=== PATIENT | female | born 1945 | race Caucasian/White ===

== ENCOUNTER 2020-12-06 21:46 | Inpatient (IN) | payer MEDICARE, OTHER ==
[~2020-12-06] VITALS: Ht 160 cm; Wt 61.2 kg
[2020-12-06 22:04] LABS: BASOPHILS # (AUTO) 0.1 10^3/uL (0.0-0.1); BASOPHILS % (AUTO) 1 % (0-10); EOSINOPHILS # (AUTO) 0.2 10^3/uL (0.0-0.3); EOSINOPHILS % (AUTO) 2 % (0-10); HEMATOCRIT 50 % (35-52); HEMOGLOBIN 16.6 g/dL (11.5-16.0); LYMPHOCYTES # (AUTO) 2.8 10^3/uL (1.0-4.0); LYMPHOCYTES % (AUTO) 22 % (12-44); MEAN CORPUSCULAR HEMOGLOBIN 31 pg (25-34); MEAN CORPUSCULAR HGB CONC 33 g/dL (32-36); MEAN CORPUSCULAR VOLUME 92 fL (80-99); MEAN PLATELET VOLUME 10.2 fL (9.0-12.2); MONOCYTES # (AUTO) 0.8 10^3/uL (0.0-1.0); MONOCYTES % (AUTO) 6 % (0-12); NEUTROPHILS # (AUTO) 8.8 10^3/uL (1.8-7.8); NEUTROPHILS % (AUTO) 69 % (42-75); PLATELET COUNT 316 10^3/uL (130-400); WHITE BLOOD COUNT 12.8 10^3/uL (4.3-11.0)
--- NOTE | 2020-12-06 22:07 | ED Chest Pain ---
General Stated Complaint: CP Source: patient, EMS Exam Limitations: no limitations History of Present Illness Date Seen by Provider: Dec 06, 2020 Time Seen by Provider: 21:46 Initial Comments Patient presents ER by private conveyance from home with chief complaint of abrupt onset shortness of air shortly before calling 911 followed by epigastric pain and burning sensation up through her left chest. She is not having any nausea but she has been having diarrhea a lot lately. No fevers or chills. She is had an occasional cough. She is not a smoker but does have hypertension hyperlipidemia and diabetes. She denies a previous history of coronary disease. She is known to Dr. Terry for primary care. 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 She is not on blood thinners she had a blood clot after delivery of her child many years ago. EMS gave her aspirin on route as well as nitroglycerin which improved her pain so nitroglycerin paste was placed. She was 88% on room air on arrival. She denies a history of respiratory disease or hypoxia at baseline requiring supplemental oxygen Allergies and Home Medications Allergies Coded Allergies: No Known Drug Allergies (Unverified , 12/06/20) Patient Home Medication List Home Medication List Reviewed: Yes Review of Systems Review of Systems Constitutional: No chills, No diaphoresis EENTM: No Blurred Vision, No Double Vision Respiratory: Cough, Shortness of Air; Denies SOA With Exertion Cardiovascular: Chest Pain; Denies Edema Gastrointestinal: Denies Constipated; Diarrhea; Denies Nausea Genitourinary: Denies Burning, Denies Discharge, Denies Drainage, Denies Frequency Musculoskeletal: No back pain, No joint pain All Other Systems Reviewed Negative Unless Noted: Yes Past Xysnrgf-Rzufpk-Jfgifx Hx Patient Social History Tobacco Use?: No Use of E-Cig and/or Vaping dev: No Substance use?: No Physical Exam Vital Signs Vital Signs - First Documented 12/06/20 12/06/20 21:47 21:50 Temp 36.2 Pulse 79 Resp 22 B/P (MAP) 180/120 (140) Pulse Ox 92 O2 Delivery Room Air O2 Flow Rate 4.00 Capillary Refill : Height, Weight, BMI Height: '" Weight: lbs. oz. kg; BMI Method: General Appearance: Moderate Distress HEENT: PERRL/EOMI, Pharynx Normal, Moist Mucous Membranes Neck: Full Range of Motion, Normal Inspection Respiratory: Accessory Muscle Use (Mild), Rales (Audible), Respiratory Distress (Moderate, 89% on 4 L by nasal cannula), Rhonci Cardiovascular: Regular Rate, Rhythm, Normal Peripheral Pulses Gastrointestinal: Normal Bowel Sounds, Non Tender, Soft Extremity: Normal Capillary Refill, Normal Inspection Neurologic/Psychiatric: Alert, Oriented x3 Skin: Normal Color, Warm/Dry Progress/Results/Core Measures Results/Orders Lab Results Laboratory Tests Test 12/06/20 21:50 12/06/20 21:59 12/06/20 22:50 Range/Units White Blood Count 12.8 H 4.3-11.0 10^3/uL Red Blood Count 5.41 H 3.80-5.11 10^6/uL Hemoglobin 16.6 H 11.5-16.0 g/dL Hematocrit 50 35-52 % Mean Corpuscular Volume 92 80-99 fL Mean Corpuscular Hemoglobin 31 25-34 pg Mean Corpuscular Hemoglobin Concent 33 32-36 g/dL Red Cell Distribution Width 13.5 10.0-14.5 % Platelet Count 316 130-400 10^3/uL Mean Platelet Volume 10.2 9.0-12.2 fL Immature Granulocyte % (Auto) 1 % Neutrophils (%) (Auto) 69 42-75 % Lymphocytes (%) (Auto) 22 12-44 % Monocytes (%) (Auto) 6 0-12 % Eosinophils (%) (Auto) 2 0-10 % Basophils (%) (Auto) 1 0-10 % Neutrophils # (Auto) 8.8 H 1.8-7.8 10^3/uL Lymphocytes # (Auto) 2.8 1.0-4.0 10^3/uL Monocytes # (Auto) 0.8 0.0-1.0 10^3/uL Eosinophils # (Auto) 0.2 0.0-0.3 10^3/uL Basophils # (Auto) 0.1 0.0-0.1 10^3/uL Immature Granulocyte # (Auto) 0.1 0.0-0.1 10^3/uL Prothrombin Time 13.2 12.2-14.7 SEC INR Comment 1.0 0.8-1.4 Activated Partial Thromboplast Time 25 24-35 SEC Sodium Level 139 135-145 MMOL/L Potassium Level 4.3 3.6-5.0 MMOL/L Chloride Level 104 98-107 MMOL/L Carbon Dioxide Level 19 L 21-32 MMOL/L Anion Gap 16 H 5-14 MMOL/L Blood Urea Nitrogen 15 7-18 MG/DL Creatinine 1.23 0.60-1.30 MG/DL Estimat Glomerular Filtration Rate 43 BUN/Creatinine Ratio 12 Glucose Level 285 H 70-105 MG/DL Calcium Level 9.4 8.5-10.1 MG/DL Corrected Calcium 9.3 8.5-10.1 MG/DL Magnesium Level 1.8 1.6-2.4 MG/DL Total Bilirubin 0.4 0.1-1.0 MG/DL Aspartate Amino Transf (AST/SGOT) 23 5-34 U/L Alanine Aminotransferase (ALT/SGPT) 13 0-55 U/L Alkaline Phosphatase 88 40-136 U/L Myoglobin 672.2 H 10.0-92.0 NG/ML Troponin I 0.212 H <0.028 NG/ML B-Type Natriuretic Peptide 927.9 H <100.0 PG/ML Total Protein 7.8 6.4-8.2 GM/DL Albumin 4.1 3.2-4.5 GM/DL Influenza Type A (RT-PCR) Not Detected Not Detecte Influenza Type B (RT-PCR) Not Detected Not Detecte SARS-CoV-2 RNA (RT-PCR) Not Detected Not Detecte Blood Gas Puncture Site R RAD Blood Gas Patient Temperature 36.2 Arterial Blood pH 7.32 *L 7.37-7.43 Arterial Blood Partial Pressure CO2 42 35-45 MMHG Arterial Blood Partial Pressure O2 95 H 79-93 MMHG Arterial Blood HCO3 22 L 23-27 MMOL/L Arterial Blood Total CO2 23.0 21.0-31.0 MMOL/L Arterial Blood Oxygen Saturation 97 94-100 % Arterial Blood Base Excess -3.6 L -2.5-2.5 MMOL/L Magdy Test YES-POS Blood Gas Ventilator Setting NO Blood Gas Inspired Oxygen BIPAP 35% My Orders Orders - EFREN HERRERA Cbc With Automated Diff (12/06/20 21:55) Magnesium (12/06/20 21:55) Chest 1 View, Ap/Pa Only (12/06/20 21:55) Ekg Tracing (12/06/20 21:55) Comprehensive Metabolic Panel (12/06/20 21:55) Myoglobin Serum (12/06/20 21:55) Protime With Inr (12/06/20 21:55) Partial Thromboplastin Time (12/06/20 21:55) O2 (12/06/20 21:55) Monitor-Rhythm Ecg Trace Only (12/06/20 21:55) Ed Iv/Invasive Line Start (12/06/20 21:55) BNP (12/06/20 21:55) Troponin I (12/06/20 21:55) Arterial Blood Gas (12/06/20 21:55) Bipap (Bilevel) Set Up (12/06/20 21:55) Covid 19 Inhouse Test (12/06/20 21:55) Influenza A And B By Pcr (12/06/20 21:55) Furosemide Injection (Lasix Injection) (12/06/20 23:15) Enoxaparin Injection (Lovenox Injection) (12/06/20 23:15) Vital Signs/I&O 12/06/20 12/06/20 21:47 21:50 Temp 36.2 Pulse 79 Resp 22 B/P (MAP) 180/120 (140) Pulse Ox 92 92 O2 Delivery Room Air Nasal Cannula O2 Flow Rate 4.00 Progress Progress Note : Time: 22:05 Progress Note BiPAP, ABG, oxygen mask 8 L brought her up to 94%. Continue the nitroglycerin as her blood pressure still 180/120. Suspect strongly she is having a coronary event. BNP labs and will reassess. COVID-19 swab. Initial ECG Impression Date: Dec 06, 2020 Initial ECG Impression Time: 21:55 Initial ECG Rate: 81 Initial ECG Rhythm: Normal Sinus Initial ECG Intervals: QT (476) Initial ECG Impression: Nonspecific Changes Initial ECG Comparisson: No Previous ECG Available Comment Left little branch block without clinically relevant ST changes. Sinus rhythm. Diagnostic Imaging Diagonstic Imaging: Xray Plain Films/CT/US/NM/MRI: chest Comments Pulmonary edema/congestion bilateral [facility] [place], [place] NAME: THALIA PITTMAN [facility] REC#: [id number] PT STATUS: ADM IN : 1945 PHYSICIAN: EFREN HERRERA MD ADMIT DATE: 12/06/20/ICU Signed Date of Exam:12/06/20 CHEST 1 VIEW, AP/PA ONLY EXAMINATION: Chest radiograph, portable AP view. DATE: 12/06/2020 10:48 PM INDICATION: 75-year-old female, chest pain, cough. Shortness of breath. COMPARISON: None. FINDINGS: Heart size and mediastinal contours are unremarkable. There is no identified pneumothorax. There is no large pleural effusion. There are bilateral interstitial and/or alveolar opacities. IMPRESSION: 1. Bilateral interstitial and/or alveolar opacities. Differential diagnostic considerations include multifocal pneumonia and atypical infectious etiologies, pulmonary edema, and pneumonitis. Dictated by: Dictated on workstation # [id number] Dict: 12/07/20 0519 Trans: 12/07/20 0656 [facility] [id number] Interpreted by: RADHA JAMES MD Electronically signed by: RADHA JAMES MD 12/07/20 0656 Reviewed: Reviewed by Me Departure Communication (Admissions) Time/Spoke to Admitting Phy: 00:10 Discussed the case with Dr. Cantu and she agrees to observe the patient with cardiac consultation Time/Spoke to Consulting Phy: 00:[address] Toney who agrees to consult on the case. Impression Primary Impression: Acute respiratory failure with hypoxia Additional Impressions: Acute coronary syndrome with high troponin Congestive heart failure Qualified Codes: I50.9 - Heart failure, unspecified Disposition: ADMITTED INPATIENT Condition: Stable Admissions Decision to Admit Reason: Admit from ER (General) Decision to Admit/Date: Dec 06, 2020 Time/Decision to Admit Time: 22:58 EFREN HERRERA Dec 06, 2020 22:07
[2020-12-06 22:15] LABS: ALBUMIN 4.1 GM/DL (3.2-4.5)
[2020-12-06 22:16] LABS: POTASSIUM 4.3 MMOL/L (3.6-5.0)
[2020-12-06 22:17] LABS: CALCIUM 9.4 MG/DL (8.5-10.1)
[2020-12-06 22:18] LABS: PROTHROMBIN TIME PATIENT 13.2 SEC (12.2-14.7); TOTAL PROTEIN 7.8 GM/DL (6.4-8.2)
[2020-12-06 22:20] LABS: BILIRUBIN,TOTAL 0.4 MG/DL (0.1-1.0)
[2020-12-06 22:22] LABS: CREATININE SERUM 1.23 MG/DL (0.60-1.30)
[2020-12-06 22:24] LABS: MAGNESIUM 1.8 MG/DL (1.6-2.4)
[2020-12-06 23:02] LABS: ABG BASE EXCESS -3.6 MMOL/L (-2.5-2.5); ABG OXYGEN SATURATION 97 % (94-100); ABG PCO2 42 MMHG (35-45); ABG PO2 95 MMHG (79-93)
[2020-12-06 23:03] LABS: ABG PH 7.32 (7.37-7.43)
[2020-12-06 23:04] LABS: ALLENS TEST YES-POS; INSPIRED O2 BIPAP 35%; PATIENT TEMP 36.2; VENTILATOR NO
[2020-12-06] MEDS ORDERED: ENOXAPARIN 60 MG/0.6 ML (LOVENOX) SYR SC ONE (23:15)
[2020-12-06] MEDS ORDERED: FUROSEMIDE 40 MG/4 ML INJ (LASIX) IVP ONE (23:15)
[2020-12-07 00:05] LABS: BILIRUBIN,URINE NEGATIVE (NEGATIVE); CLARITY,URINE CLEAR; COLOR,URINE YELLOW; GLUCOSE, URINE (UA) NEGATIVE (NEGATIVE); KETONES,URINE NEGATIVE (NEGATIVE); LEUKOCYTE ESTERASE ,URINE TRACE (NEGATIVE); NITRITE,URINE NEGATIVE (NEGATIVE); PH,URINE 5.5 (5-9); PROTEIN,URINE 2+ (NEGATIVE)
[2020-12-07 00:20] LABS: RBC,URINE 0-2 /HPF
[2020-12-07 00:21] LABS: BACTERIA,URINE MODERATE /HPF
[2020-12-07 00:22] LABS: RENAL EPITHELIAL CELLS,URINE 0-2 /HPF
[2020-12-07 00:56] VITALS: BP 180/120
[2020-12-07] MEDS ORDERED: morphine INJ 4 MG/ML 1 ML (VIAL/SYRINGE) IV PRN (01:00)
[2020-12-07] MEDS ORDERED: ACETAMINOPHEN 325 MG TABLET PO PRN (01:00)
[2020-12-07] MEDS ORDERED: NITROGLYCERIN 0.4 MG SL TABS BTL 25'S SL PRN (01:00)
[2020-12-07] MEDS ORDERED: ONDANSETRON 4 MG/2 ML (SDV) Z0FRAN IVP PRN (01:00)
[2020-12-07] MEDS ORDERED: NITROGLYCERIN 2% OINT 1 GM UNIT DOSE PACKET TOP PRN (01:00)
--- NOTE | 2020-12-07 01:07 | Tele-ICU Consult ---
History of Present Illness History of Present Illness Date Seen by Provider: Dec 07, 2020 Time Seen by Provider: 00:50 Date of Admission Reason for Visit: Acute respiratory distress, epigastric pain History of Present Illness This is a 75 yo F with PMH HTN, DM, remote blood clot after child who presents with sudden onset epigastric pain and dyspnea. Now relieved with ASA, nitro paste. No fever. Some nausea, hx diarrhea. No hemoptysis or hematemesis. Allergies and Home Medications Allergies Coded Allergies: No Known Drug Allergies (Unverified , 12/06/20) Past Medical/Social/Family Hx Patient Social History Tobacco Use?: No Use of E-Cig and/or Vaping dev: No Substance use?: No Alcohol Use?: No Pt stated abuse/neglect: No Current Status Primary Language: Israeli Past Medical History HTN DM Hyperlipidemia Remote blood clot Review of Systems Constitutional: see HPI, diaphoresis Respiratory: dyspnea on exertion, short of breath Gastrointestinal: loss of appetite, vomiting Sepsis Event Evaluation Sepsis Stage: Ruled Out Height, Weight, BMI Height: '" Weight: lbs. oz. kg; BMI Method: Exam Exam Patient acknowledged, consented, and participated in this virtual visit which was conducted using real time audio/video Vital Signs Date Time Temp Pulse Resp B/P (MAP) Pulse Ox O2 Delivery O2 Flow Rate FiO2 12/07/20 00:42 76 12/07/20 00:41 79 29 97 35.00 12/06/20 23:15 65 25 98 35.00 12/06/20 21:50 92 Nasal Cannula 4.00 12/06/20 21:47 36.2 79 22 180/120 (140) 92 Room Air Height & Weight Height: '" Weight: lbs. oz. kg; BMI Method: General Appearance: No Apparent Distress HEENT: PERRL/EOMI Neck: Other (No stridor) Respiratory: Rales Cardiovascular: Regular Rate, Rhythm, Normal Peripheral Pulses Capillary Refill: Less Than 3 Seconds Extremity: Normal Capillary Refill, Normal Inspection Neurologic/Psychiatric: Alert, Oriented x3 Skin: Normal Color, Warm/Dry Results Lab Laboratory Tests 12/06/20 21:50 Assessment/Plan Assessment/Plan NSTEMI on lovenox, cardiology consulted. Supplemental O2, nitroglcerin, ASA Acute pulmonary edema. NIV, lasix. COVID, flu negative. Doubt pneumonia Dyspnea Epigastric pain, nausea. Antiemetics, Add PPI Cardiology consulted per Dr. Cantu, keep NPO, follow-up recommendations Critical Care: Critically Ill Patient Time spent with patient (mins): 25 Diagnosis/Problems Problems/Diagonsis (1) NSTEMI (non-ST elevated myocardial infarction) (2) Acute respiratory failure with hypoxia ALLEY JOHNS MD Dec 07, 2020 01:07
[2020-12-07] MEDS ORDERED: RT-ALBUTEROL SULF 2.5 MG/3 ML PRE-MIX VIAL INH PRN (01:15)
[2020-12-07] MEDS ORDERED: RT-ALBUTEROL INHALER HFA (VENTOLIN HFA) 18 GM IH PRN (03:00)
[2020-12-07 03:29] LABS: BASOPHILS % (AUTO) 0 % (0-10); EOSINOPHILS % (AUTO) 0 % (0-10); HEMATOCRIT 47 % (35-52); HEMOGLOBIN 15.7 g/dL (11.5-16.0); LYMPHOCYTES # (AUTO) 1.6 10^3/uL (1.0-4.0); LYMPHOCYTES % (AUTO) 14 % (12-44); MEAN CORPUSCULAR HEMOGLOBIN 30 pg (25-34); MEAN CORPUSCULAR HGB CONC 33 g/dL (32-36); MEAN CORPUSCULAR VOLUME 91 fL (80-99); MEAN PLATELET VOLUME 10.2 fL (9.0-12.2); MONOCYTES # (AUTO) 0.7 10^3/uL (0.0-1.0); MONOCYTES % (AUTO) 6 % (0-12); NEUTROPHILS # (AUTO) 8.6 10^3/uL (1.8-7.8); NEUTROPHILS % (AUTO) 79 % (42-75); PLATELET COUNT 276 10^3/uL (130-400); WHITE BLOOD COUNT 10.9 10^3/uL (4.3-11.0)
[2020-12-07 03:42] LABS: POTASSIUM 4.4 MMOL/L (3.6-5.0)
[2020-12-07 03:43] LABS: CALCIUM 9.5 MG/DL (8.5-10.1)
[2020-12-07 03:48] LABS: CREATININE SERUM 0.96 MG/DL (0.60-1.30); PHOSPHORUS 3.8 MG/DL (2.3-4.7)
[2020-12-07 03:51] LABS: MAGNESIUM 1.9 MG/DL (1.6-2.4)
[2020-12-07] MEDS: PANTOPRAZOLE 40 MG (PROTONIX) VIAL IV SCH ×2 (05:11→08:30)
[2020-12-07] MEDS: inSUlin ASPART (NovoLOG) 1 UNIT/0.01 ML (CHARGE PER UNIT) SC SCH ×2 (05:55→12:19)
--- NOTE | 2020-12-07 06:34 | Diagnostic Imaging Report ---
EXAMINATION: Chest radiograph, portable AP view. DATE: 12/06/2020 10:48 PM INDICATION: 75-year-old female, chest pain, cough. Shortness of breath. COMPARISON: None. FINDINGS: Heart size and mediastinal contours are unremarkable. There is no identified pneumothorax. There is no large pleural effusion. There are bilateral interstitial and/or alveolar opacities. IMPRESSION: 1. Bilateral interstitial and/or alveolar opacities. Differential diagnostic considerations include multifocal pneumonia and atypical infectious etiologies, pulmonary edema, and pneumonitis. Dictated by: Dictated on workstation # [id number]
[2020-12-07] MEDS ORDERED: FUROSEMIDE 40 MG/4 ML INJ (LASIX) IVP SCH (07:00)
[2020-12-07] MEDS ORDERED: RT-ALBUTEROL INHALER HFA (VENTOLIN HFA) 18 GM IH SCH (08:00)
[2020-12-07] MEDS ORDERED: RT-ALBUTEROL SULF 2.5 MG/3 ML PRE-MIX VIAL INH SCH (08:00)
--- NOTE | 2020-12-07 08:39 | History & Physical-Hospitalist ---
History of Present Illness HPI/Chief Complaint Pt is a 75yoCF with a PMH of HTN and NIDDMII who presented to the ER due to SOB and chest pain. She states that she was not doing much yesterday evening when it started around 630pm. It was rather acute in onset. She had SOB, nausea, diaphoresis, and chest pain. She has had similar episodes in the past but attributed them to old age and didn't think much of it as it resolved on it's own. She now states she feels fine and is actually asking to go home. I discussed with her that her troponin increased to 42 and she needs evaluation of her heart prior to discharge to which she is agreeable. Source: patient Date Seen 12/07/20 Time Seen by a Provider: 08:32 Attending Physician Roddy Cantu MD PCP No,Local Physician Referring Physician Date of Admission Dec 06, 2020 at 23:10 Home Medications & Allergies Home Medications Reviewed patient Home Medication Reconciliation performed by pharmacy medication reconciliations settlement technician and/or nursing. Patients Allergies have been reviewed. Allergies Allergies Coded Allergies No Known Drug Allergies (Unverified12/06/20) Past Riwnchq-Wwcywv-Expwyq Hx Patient Social History Marrital Status: Tobacco Use?: No Smoking Status: Never a Smoker Use of E-Cig and/or Vaping dev: No Substance use?: No Alcohol Use?: No Pt feels they are or have been: No Immunizations Up To Date First/Initial COVID19 Vaccinat: Not yet, intends to on Current Status Primary Language: Senegalese Past Medical History Hypertension Diabetes, Non-Insulin dep HTN DM Hyperlipidemia Remote blood clot Review of Systems Constitutional: No chills; diaphoresis; No fever EENTM: no symptoms reported Respiratory: dyspnea on exertion, short of breath Cardiovascular: chest pain; No edema, No Hx of Intervention, No syncope Gastrointestinal: No abdominal pain, No constipation, No diarrhea; nausea; No vomiting Genitourinary: no symptoms reported Musculoskeletal: no symptoms reported Skin: no symptoms reported Psychiatric/Neurological: No Symptoms Reported Physical Exam Physical Exam Vital Signs Vital Signs - First Documented 12/06/20 12/06/20 12/07/20 21:47 21:50 00:56 Temp 36.2 Pulse 79 Resp 22 B/P (MAP) 180/120 (140) Pulse Ox 92 O2 Delivery Room Air O2 Flow Rate 4.00 FiO2 36 Capillary Refill : Less Than 3 Seconds Height, Weight, BMI Height: '" Weight: lbs. oz. kg; BMI Method: General Appearance: No Apparent Distress, WD/WN HEENT: PERRL/EOMI, Moist Mucous Membranes; No Scleral Icterus (L), No Scleral Icterus (R) Neck: Normal Inspection, Supple Respiratory: Lungs Clear, No Accessory Muscle Use, No Respiratory Distress (on 2lpm satting high 90s) Cardiovascular: Regular Rate, Rhythm, No JVD, No Murmur Gastrointestinal: Normal Bowel Sounds, Non Tender, Soft Extremity: Normal Capillary Refill, No Calf Tenderness, No Pedal Edema Neurologic/Psychiatric: Alert, Oriented x3, Normal Mood/Affect; No Aphasia, No Facial Droop Results Results/Procedures Labs Laboratory Tests 12/06/20 21:50 12/07/20 03:18 Patient resulted labs reviewed. Imaging: Reviewed Imaging Report Imaging [facility] [place], [place] NAME: THALIA PITTMAN [facility] REC#: [id number] PT STATUS: ADM IN : 1945 PHYSICIAN: EFREN HERRERA MD ADMIT DATE: 12/06/20/ICU Signed Date of Exam:12/06/20 CHEST 1 VIEW, AP/PA ONLY EXAMINATION: Chest radiograph, portable AP view. DATE: 12/06/2020 10:48 PM INDICATION: 75-year-old female, chest pain, cough. Shortness of breath. COMPARISON: None. FINDINGS: Heart size and mediastinal contours are unremarkable. There is no identified pneumothorax. There is no large pleural effusion. There are bilateral interstitial and/or alveolar opacities. IMPRESSION: 1. Bilateral interstitial and/or alveolar opacities. Differential diagnostic considerations include multifocal pneumonia and atypical infectious etiologies, pulmonary edema, and pneumonitis. Dictated by: Dictated on workstation # [id number] Dict: 12/07/20 0519 Trans: 12/07/20 0656 [facility] [id number] Interpreted by: RADHA JAMES MD Electronically signed by: RADHA JAMES MD 12/07/20 0656 Assessment/Plan Admission Diagnosis NSTEMI Admission Status: Inpatient Order (span 2 midnights) Reason for Inpatient Admission: see below Assessment and Plan NSTEMI Acute hypoxic respiratory failure Required BiPAP overnight, now off Troponin from 0.2 to 42 this morning Discussed with Dr Toney, cardiology, who will see and plans to cath this morning Continue aspirin and Lovenox Nitro prn chest pain Monitor on telemetry Echo HTN BP well controlled, trend HLD Will need statin, start when able to take PO NIDDMII Hold Janumet for contrast with cath DV ppx: Lovenox already for NSTEMI Diagnosis/Problems Diagnosis/Problems (1) Essential (primary) hypertension (2) HLD (hyperlipidemia) (3) Non-insulin dependent type 2 diabetes mellitus (4) Acute respiratory failure with hypoxia (5) Acute coronary syndrome with high troponin Status: Acute (6) NSTEMI (non-ST elevated myocardial infarction) RODDY CANTU MD Dec 07, 2020 08:39
[2020-12-07] MEDS ORDERED: NS IV 1000 ML 1,000 ML IV SCH ×2 (08:45→11:45)
[2020-12-07] MEDS ORDERED: KCL 20 MEQ TAB (K-DUR) PO SCH (09:00)
[2020-12-07] MEDS ORDERED: ASPIRIN E.C. 81 MG (ECOTRIN) TAB PO SCH (09:00)
--- NOTE | 2020-12-07 09:27 | Tele-ICU Progress Note ---
Progress Note video rounds completed 75 y/o female admitted with atypical CP Troponin thuis am has risen to 42 Patient has NSTEMI and plan is to go to cardiac cath lab technologist for PCI PE: sitting up in bed comfortably talking on phone Pulse 61 ST depression noted BP: 151/88 O2 sat 97% PLAN: cardiac cath lab technologist today Focused Exam Height, Weight, BMI Height: '" Weight: lbs. oz. kg; BMI Method: BENITO MOTA MD Dec 07, 2020 09:27
[2020-12-07] MEDS ORDERED: fentaNYL INJ 100 MCG/2 ML AMP ONE (10:12)
[2020-12-07] MEDS ORDERED: LIDOCAINE 1% INJ 20 ML 20 ML VIAL ONE (10:13)
[2020-12-07] MEDS ORDERED: MIDAZOLAM 5 MG/5 ML (VERSED) VIAL ONE (10:13)
[2020-12-07] MEDS ORDERED: HEParin (CATH LAB) 2,000 ML IV ONE (10:13)
[2020-12-07] MEDS ORDERED: NS IV 1000 ML 1,000 ML ONE (10:13)
--- NOTE | 2020-12-07 10:26 | Consultation-Cardiology ---
HPI-Cardiology Cardiology Consultation Date of Consultation 12/07/20 Date of Admission Time Seen by Provider: 08:32 Indication: Acute myocardial infarction HPI 75-year-old lady with history of hypertension, hyperlipidemia and diabetes mellitus, have sudden onset of shortness of breath and chest discomfort, came into the emergency room. Reported the symptoms improved after sublingual nitroglycerin, currently feeling well. No chest pain at this point, had left bundle branch block and elevated troponin. Had multiple risk factors, reported having cardiac catheterization about 20 years ago without any obstructive disease Home Medications & Allergies Allergies: Coded Allergies: No Known Drug Allergies (Unverified , 12/06/20) Home Medication List Reviewed: Yes TPC-Novxnz-Zbguhx Hx Patient Social History Marital Status: Smoking Status: Never a Smoker Alcohol Use?: No Past Medical History Discussed below Family Medical History Family Medical Hx Mother had history of heart disease Review of Systems-General Review of Systems Constitutional: No chills; diaphoresis; No fever EENTM: no symptoms reported Respiratory: see HPI; No cough; dyspnea on exertion; No hemoptysis, No orthopnea, No phlegm; short of breath; No stridor, No wheezing, No other Cardiovascular: No no symptoms reported; see HPI, chest pain; No edema, No Hx of Intervention, No palpitations, No syncope, No vascular heart diseas, No other Gastrointestinal: see HPI; No abdominal pain, No constipation, No diarrhea; nausea; No vomiting Genitourinary: no symptoms reported, see HPI Musculoskeletal: no symptoms reported, see HPI Skin: no symptoms reported, see HPI Psychiatric/Neurological: No Symptoms Reported, See HPI All Other Systems Reviewed Negative Unless Noted: Yes Reviewed Test Results Reviewed Test Results Lab Laboratory Tests Test 12/06/20 21:50 12/06/20 21:59 12/06/20 22:50 12/06/20 23:49 Range/Units White Blood Count 12.8 H 4.3-11.0 10^3/uL Red Blood Count 5.41 H 3.80-5.11 10^6/uL Hemoglobin 16.6 H 11.5-16.0 g/dL Hematocrit 50 35-52 % Mean Corpuscular Volume 92 80-99 fL Mean Corpuscular Hemoglobin 31 25-34 pg Mean Corpuscular Hemoglobin Concent 33 32-36 g/dL Red Cell Distribution Width 13.5 10.0-14.5 % Platelet Count 316 130-400 10^3/uL Mean Platelet Volume 10.2 9.0-12.2 fL Immature Granulocyte % (Auto) 1 % Neutrophils (%) (Auto) 69 42-75 % Lymphocytes (%) (Auto) 22 12-44 % Monocytes (%) (Auto) 6 0-12 % Eosinophils (%) (Auto) 2 0-10 % Basophils (%) (Auto) 1 0-10 % Neutrophils # (Auto) 8.8 H 1.8-7.8 10^3/uL Lymphocytes # (Auto) 2.8 1.0-4.0 10^3/uL Monocytes # (Auto) 0.8 0.0-1.0 10^3/uL Eosinophils # (Auto) 0.2 0.0-0.3 10^3/uL Basophils # (Auto) 0.1 0.0-0.1 10^3/uL Immature Granulocyte # (Auto) 0.1 0.0-0.1 10^3/uL Prothrombin Time 13.2 12.2-14.7 SEC INR Comment 1.0 0.8-1.4 Activated Partial Thromboplast Time 25 24-35 SEC Sodium Level 139 135-145 MMOL/L Potassium Level 4.3 3.6-5.0 MMOL/L Chloride Level 104 98-107 MMOL/L Carbon Dioxide Level 19 L 21-32 MMOL/L Anion Gap 16 H 5-14 MMOL/L Blood Urea Nitrogen 15 7-18 MG/DL Creatinine 1.23 0.60-1.30 MG/DL Estimat Glomerular Filtration Rate 43 BUN/Creatinine Ratio 12 Glucose Level 285 H 70-105 MG/DL Calcium Level 9.4 8.5-10.1 MG/DL Corrected Calcium 9.3 8.5-10.1 MG/DL Magnesium Level 1.8 1.6-2.4 MG/DL Total Bilirubin 0.4 0.1-1.0 MG/DL Aspartate Amino Transf (AST/SGOT) 23 5-34 U/L Alanine Aminotransferase (ALT/SGPT) 13 0-55 U/L Alkaline Phosphatase 88 40-136 U/L Myoglobin 672.2 H 10.0-92.0 NG/ML Troponin I 0.212 H <0.028 NG/ML B-Type Natriuretic Peptide 927.9 H <100.0 PG/ML Total Protein 7.8 6.4-8.2 GM/DL Albumin 4.1 3.2-4.5 GM/DL Influenza Type A (RT-PCR) Not Detected Not Detecte Influenza Type B (RT-PCR) Not Detected Not Detecte SARS-CoV-2 RNA (RT-PCR) Not Detected Not Detecte Blood Gas Puncture Site R RAD Blood Gas Patient Temperature 36.2 Arterial Blood pH 7.32 *L 7.37-7.43 Arterial Blood Partial Pressure CO2 42 35-45 MMHG Arterial Blood Partial Pressure O2 95 H 79-93 MMHG Arterial Blood HCO3 22 L 23-27 MMOL/L Arterial Blood Total CO2 23.0 21.0-31.0 MMOL/L Arterial Blood Oxygen Saturation 97 94-100 % Arterial Blood Base Excess -3.6 L -2.5-2.5 MMOL/L Magdy Test YES-POS Blood Gas Ventilator Setting NO Blood Gas Inspired Oxygen BIPAP 35% Urine Color YELLOW Urine Clarity CLEAR Urine pH 5.5 5-9 Urine Specific [place] >=1.030 1.016-1.022 Urine Protein 2+ H NEGATIVE Urine Glucose (UA) NEGATIVE NEGATIVE Urine Ketones NEGATIVE NEGATIVE Urine Nitrite NEGATIVE NEGATIVE Urine Bilirubin NEGATIVE NEGATIVE Urine Urobilinogen 0.2 < = 1.0 MG/DL Urine Leukocyte Esterase TRACE H NEGATIVE Urine RBC (Auto) TRACE-I NEGATIVE Urine RBC 0-2 /HPF Urine WBC 10-25 H /HPF Urine Squamous Epithelial Cells 2-5 /HPF Urine Renal Epithelial Cells 0-2 /HPF Urine Crystals NONE /LPF Urine Bacteria MODERATE H /HPF Urine Casts PRESENT /LPF Urine Hyaline Casts 5-10 H /LPF Urine Granular Casts 2-5 H /LPF Urine Mucus NEGATIVE /LPF Urine Culture Indicated YES Test 12/07/20 03:18 12/07/20 10:00 Range/Units White Blood Count 10.9 4.3-11.0 10^3/uL Red Blood Count 5.19 H 3.80-5.11 10^6/uL Hemoglobin 15.7 11.5-16.0 g/dL Hematocrit 47 35-52 % Mean Corpuscular Volume 91 80-99 fL Mean Corpuscular Hemoglobin 30 25-34 pg Mean Corpuscular Hemoglobin Concent 33 32-36 g/dL Red Cell Distribution Width 13.4 10.0-14.5 % Platelet Count 276 130-400 10^3/uL Mean Platelet Volume 10.2 9.0-12.2 fL Immature Granulocyte % (Auto) 0 % Neutrophils (%) (Auto) 79 H 42-75 % Lymphocytes (%) (Auto) 14 12-44 % Monocytes (%) (Auto) 6 0-12 % Eosinophils (%) (Auto) 0 0-10 % Basophils (%) (Auto) 0 0-10 % Neutrophils # (Auto) 8.6 H 1.8-7.8 10^3/uL Lymphocytes # (Auto) 1.6 1.0-4.0 10^3/uL Monocytes # (Auto) 0.7 0.0-1.0 10^3/uL Eosinophils # (Auto) 0.0 0.0-0.3 10^3/uL Basophils # (Auto) 0.0 0.0-0.1 10^3/uL Immature Granulocyte # (Auto) 0.0 0.0-0.1 10^3/uL Sodium Level 140 135-145 MMOL/L Potassium Level 4.4 3.6-5.0 MMOL/L Chloride Level 107 98-107 MMOL/L Carbon Dioxide Level 19 L 21-32 MMOL/L Anion Gap 14 5-14 MMOL/L Blood Urea Nitrogen 17 7-18 MG/DL Creatinine 0.96 0.60-1.30 MG/DL Estimat Glomerular Filtration Rate 57 BUN/Creatinine Ratio 18 Glucose Level 162 H 70-105 MG/DL Calcium Level 9.5 8.5-10.1 MG/DL Phosphorus Level 3.8 2.3-4.7 MG/DL Magnesium Level 1.9 1.6-2.4 MG/DL Troponin I 42.090 *H <0.028 NG/ML Triglycerides Level 320 H <150 MG/DL Cholesterol Level 239 H < 200 MG/DL LDL Cholesterol Direct 169 H 1-129 MG/DL VLDL Cholesterol 64 H 5-40 MG/DL HDL Cholesterol 40 40-60 MG/DL Physical Exam Physical Exam Vital Signs Vital Signs - First Documented 12/06/20 12/06/20 12/07/20 21:47 21:50 00:56 Temp 36.2 Pulse 79 Resp 22 B/P (MAP) 180/120 (140) Pulse Ox 92 O2 Delivery Room Air O2 Flow Rate 4.00 FiO2 36 Capillary Refill : Less Than 3 Seconds Height, Weight, BMI Height: '" Weight: lbs. oz. kg; BMI Method: General Appearance: No Apparent Distress, WD/WN Eyes: Bilateral Eye Normal Inspection, Bilateral Eye PERRL, Bilateral Eye EOMI HEENT: PERRL/EOMI, Moist Mucous Membranes; No Scleral Icterus (L), No Scleral Icterus (R) Neck: Normal Inspection, Supple Respiratory: Lungs Clear, No Accessory Muscle Use, No Respiratory Distress (on 2lpm satting high 90s) Cardiovascular: Regular Rate, Rhythm, No JVD, No Murmur Gastrointestinal: Normal Bowel Sounds, Non Tender, Soft Back: Normal Inspection, No CVA Tenderness, No Vertebral Tenderness Extremity: Normal Capillary Refill, No Calf Tenderness, No Pedal Edema Neurologic/Psychiatric: Alert, Oriented x3, Normal Mood/Affect; No Aphasia, No Facial Droop Skin: Normal Color, Warm/Dry Lymphatic: No Adenopathy A/P-Cardiology Admission Diagnosis Acute myocardial infarction Coronary artery disease Hypertension Hyperlipidemia Assessment/Plan Acute myocardial infarction, left bundle branch block on EKG with elevated troponin, no active chest pain at this point. I am planning to proceed with cardiac catheterization possible PTCA. Hypertension, restart blood pressure medication monitor blood pressure Hyperlipidemia, starting Lipitor Diabetes mellitus, managed by primary care physician Family history of atherosclerosis BROOKS RUST MD Dec 07, 2020 10:26
--- NOTE | 2020-12-07 10:26 | Conscious Sedation/ASA ---
Conscious Sedation Pre-Proced Time 10:26 ASA Score 3 For ASA 3 and 4: Consider anesthesia and medical clearance. Also, for patients with a history of failed moderate sedation consider anesthesia. Airway Lungs Heart ASA score ASA 1: a normal healthy patient ASA 2: a patient with a mild systemic disease (mid diabetes, controlled hypertension, obesity x ASA 3: a patient with a severe systemic disease that limits activity (angina, COPD, prior Myocardial infarction) ASA 4: a patient with an incapacitating disease that is a constant threat to life (CHF, renal failure) ASA 5: a moribund patient not expected to survive 24 hrs. (ruptured aneurysm) ASA 6: a declared brain- patient whose organs are being harvested. For emergent operations, add the letter E after the classification Mallampati Classification Grade 3 Sedation Plan Analgesia, Amnesia, Plan communicated to team members, Discussed options with patient/fam, Discussed risks with patient/fam The patient is an appropriate candidate to undergo the planned procedure, sedation, and anesthesia. The patient immediately re-assessed prior to indication. BROOKS RUST MD Dec 07, 2020 10:26
[2020-12-07] MEDS ORDERED: ENOXAPARIN 60 MG/0.6 ML (LOVENOX) SYR SC SCH (11:00)
[2020-12-07] MEDS ORDERED: HEParin (CATH LAB) 1,000 ML IV ONE ×2 (11:06→11:44)
[2020-12-07] MEDS ORDERED: HEParin 1000 UNIT/ML (10ML VIAL) FOR BOLUS ONE (11:33)
[2020-12-07] MEDS ORDERED: HEParin DRIP 25000 UNIT/500ML 500 ML IV ONE (11:33)
--- NOTE | 2020-12-07 11:38 | Cardiac Cath Report ---
Cardiac Cath Report Physician (s)/Branding Machine Tender (s) Physician BROOKS RUST MD Pre-Procedure Diagnosis Pre-Procedure Diagnosis: Acute myocardial infarction Post-Procedure Note Procedure Start Date: Dec 07, 2020 Name of Procedure: Left heart catheterization Left ventriculogram Aortic arch angiogram Intra-aortic balloon pump insertion Findings/Procedure Note PROCEDURE NOTE: 75-year-old lady with history of hypertension, hyperlipidemia, diabetes mellitus, admitted with acute myocardial infarction, no further episodes of chest pain were reported, had elevation in troponin and left bundle branch block, brought for cardiac catheterization possible PTCA. After explaining the procedure to the patient, all pros and cons were explained, all questions were answered. The patient signed the consent and then she was placed on the cardiac catheterization laboratory. Groin was prepped SL fashion local anesthesia was used. Sheath placed in the right femoral artery. Zachary right and left catheter were used to access the coronary system. Pigtail was used to access the left ventricular cavity. Left ventriculogram was done Aortic arch angiogram was done Intra-aortic balloon pump placement. 6 Mongolian sheath was exchanged over a long wire then intra-aortic balloon pump was placed under fluoroscopy, good positioning, initiated with good augmentation. Sheath was sutured in place FINDINGS: Hemodynamics LV 96/16, end-diastolic pressure of 16 Aorta 92/50 mean of 71 ANATOMY: Left Main is free of obstructive disease Left Anterior Descending has severe ostial stenosis, moderate disease distally Left Circumflex has severe proximal stenosis with ulcerated plaque and some haziness, moderate disease distally Right Coronary Artery is totally occluded, getting collaterals from the left system LV Gram evaluation showed dilated left ventricle with diffuse hypokinesia, ejection fraction 30% Aorta evaluation showed normal aortic arch, no dissection or aneurysm, normal origin of the brachiocephalic artery, left subclavian artery and left carotid arteries Fluoroscopy for intra-aortic balloon pump placement showed good positioning with normal inflation CONCLUSION: 1. Severe multivessel coronary artery disease involving ostial LAD, ulcerated plaque with haziness in the proximal/ostial circumflex artery and occluded right coronary artery with collaterals from the left 2. Dilated left ventricle with severe diffuse left ventricular hypokinesia, ejection fraction 30% 3. Normal aortic arch and great vessels of the neck 4. Normal positioning of intra-aortic balloon pump DISCUSSION AND RECOMMENDATION: Arrangement for transfer for evaluation for CABG was made. Hospital course Patient was monitored overnight, on my evaluation I decided to proceed with cardiac catheterization which carried out showing multivessel disease, patient was hypotensive. I proceeded with intra-aortic balloon pump placement and made arrangement to transfer to . Awaiting acceptance from . Final diagnoses Acute myocardial infarction Coronary artery disease Congestive heart failure, acute left ventricular systolic dysfunction, ischemic cardiomyopathy Cardiogenic shock Anesthesia Type: Conscious Sedation Estimated blood loss (mL): 25 ml Contrast Amount: 63 mkl Total Radiation Dose: 318 mGy Post-Procedure Diagnosis Post-operative diagnosis: Acute myocardial infarction Coronary artery disease Congestive heart failure, acute left ventricular systolic dysfunction, ischemic cardiomyopathy Cardiogenic shock BROOKS RUST MD Dec 07, 2020 11:38
[2020-12-07] MEDS ORDERED: HEParin DRIP 25000 UNIT/500ML 500 ML IV SCH (11:45)
[2020-12-07] MEDS ORDERED: PATIENT MAY USE OWN MEDS, ALL PO SCH (11:45)
[2020-12-07] MEDS ORDERED: HEParin 1000 UNIT/ML (10ML VIAL) FOR BOLUS IV SCH (11:45)
[2020-12-07] MEDS ORDERED: MIDAZOLAM 2 MG/2 ML (VERSED) VIAL ONE (12:13)
[2020-12-07] MEDS ORDERED: MIDAZOLAM 2 MG/2 ML (VERSED) VIAL IVP ONE (12:15)
[2020-12-07 13:55] VITALS: BP 144/82
== END 2020-12-07 13:55 | disposition short-term general hospital (02) | DRG 270 ==
LOC: ER 21:49 → ICU 23:10
PROVIDERS: ADMIT Family Medicine; ATTEND Family Medicine
PROC: 4A023N7 Measurement of Cardiac Sampling and Pressure, Left Heart, Percutaneous Approach (ICD-10-PCS; principal; 2020-12-06)
PROC: 5A02210 Assistance with Cardiac Output using Balloon Pump, Continuous (ICD-10-PCS; 2020-12-06)
PROC: B2111ZZ Fluoroscopy of Multiple Coronary Arteries using Low Osmolar Contrast (ICD-10-PCS; 2020-12-06)
PROC: B2151ZZ Fluoroscopy of Left Heart using Low Osmolar Contrast (ICD-10-PCS; 2020-12-06)
PROC: B3101ZZ Fluoroscopy of Thoracic Aorta using Low Osmolar Contrast (ICD-10-PCS; 2020-12-06)
PROC: 5A09357 Assistance with Respiratory Ventilation, Less than 24 Consecutive Hours, Continuous Positive Airway Pressure (ICD-10-PCS; 2020-12-06)
DX: I21.4 Non-ST elevation (NSTEMI) myocardial infarction (principal); J96.01 Acute respiratory failure with hypoxia; I50.21 Acute systolic (congestive) heart failure; R57.0 Cardiogenic shock; I24.9 Acute ischemic heart disease, unspecified; Z20.822 Contact with and (suspected) exposure to COVID-19; I11.0 Hypertensive heart disease with heart failure; E78.5 Hyperlipidemia, unspecified; R10.13 Epigastric pain; R11.0 Nausea; I25.10 Atherosclerotic heart disease of native coronary artery without angina pectoris; I25.5 Ischemic cardiomyopathy; E11.9 Type 2 diabetes mellitus without complications; I44.7 Left bundle-branch block, unspecified; Z82.49 Family history of ischemic heart disease and other diseases of the circulatory system
CPT/HCPCS: 33967; 36221; 36415; 51702; 71045; 80048; 80053; 80061; 81000; 82805; 83735; 83874; 83880; 84100; 84484; 85025; 85610; 85730; 87088; 87636; 93005; 93041; 93458; 94640; 94660

== ENCOUNTER 2020-12-25 09:09 | Inpatient (IN) | payer MEDICARE, OTHER ==
[~2020-12-25] VITALS: Ht 157.5 cm; Wt 57.6 kg
[2020-12-25] MEDS ORDERED: SPIR25TA PO (10:22)
[2020-12-25] MEDS ORDERED: LOSA25TA41 PO (10:22)
[2020-12-25] MEDS ORDERED: VIT1CAPS44 PO (10:22)
[2020-12-25] MEDS ORDERED: SITA1TAB6 PO (10:22)
[2020-12-25] MEDS ORDERED: ASPI-999 PO (10:22)
[2020-12-25] MEDS ORDERED: POTA-53 PO (10:22)
[2020-12-25] MEDS ORDERED: ROSU10TA28 PO (10:22)
[2020-12-25] MEDS ORDERED: CLOP75TA28 PO (10:22)
[2020-12-25] MEDS ORDERED: MTP25TSR PO (10:22)
[2020-12-25] MEDS ORDERED: ALLO100T PO (10:22)
[2020-12-25] MEDS ORDERED: EZET10TA49 PO (10:22)
[2020-12-25] MEDS ORDERED: FURO40TA4 PO (10:22)
[2020-12-25] MEDS ORDERED: TRM50T PO (10:22)
[2020-12-25] MEDS ORDERED: ACET325T38 PO (10:22)
[2020-12-25] MEDS ORDERED: SENN-109 PO (10:22)
[2020-12-25] MEDS ORDERED: GABA300C PO ×2 (10:37)
[2020-12-25] MEDS ORDERED: guaiFENesin/CODEINE (ROBITUSSIN AC) 10ML UDC PO PRN (12:30)
[2020-12-25] MEDS ORDERED: FLEET ENEMA ADULT 1 EA BTL PR PRN (12:30)
[2020-12-25] MEDS ORDERED: HYDROcodone/APAP 5 MG/325 MG (LORTAB) TAB PO PRN (12:30)
[2020-12-25] MEDS ORDERED: DOCUSATE SODIUM 100 MG (COLACE) CAP PO PRN (12:30)
[2020-12-25] MEDS ORDERED: CALCIUM CARBONATE 500 MG (TUMS) TAB.CHEW PO PRN (12:30)
[2020-12-25] MEDS ORDERED: ALPRAZolam 0.25 MG (XANAX) TAB PO PRN (12:30)
[2020-12-25] MEDS ORDERED: LOPERAMIDE 2 MG (IMODIUM) TABLET PO PRN (12:30)
[2020-12-25] MEDS ORDERED: LACTULOSE SYRUP 10GM/15ML (ENULOSE) 30ML UDC PO PRN (12:30)
[2020-12-25] MEDS ORDERED: ONDANSETRON 4 MG (ZOFRAN) ORAL DISSOLVE TAB PO PRN (12:30)
[2020-12-25] MEDS ORDERED: BISACODYL 10 MG SUPP (DULCOLAX) PR PRN (12:30)
[2020-12-25] MEDS ORDERED: diphenhydrAMINE 25 MG TAB (BENADRYL) PO PRN (12:30)
[2020-12-25] MEDS ORDERED: ACETAMINOPHEN 325 MG TABLET PO PRN (12:30)
[2020-12-25 13:40] VITALS: BP 159/67
--- NOTE | 2020-12-25 14:57 | PM&R Post Admission Assessment ---
PM&R HP Date of Visit: Dec 25, 2020 Time of Visit: 18:30 History of Present Illness CC: Critical illness myopathy History present illness: This is a 75-year-old white female clinic patient of Dr. Terry in [facility] who presents to the inpatient rehab unit from after a very complicated hospital course that began on 12/07/2020 due to non-ST elevation [place] and found to have multivessel disease on cardiac catheterization at [facility] in [place] so she was transferred up to ultimately underwent bypass surgery on 12/16/2020 but that was complicated with cardiogenic shock and then acute embolism of the right lower extremity due to loss of pulse which required an emergent embolectomy which showed no evidence of any compartment syndrome or any significant residual. Currently she is very weak and she requ ires a LifeVest due to ejection fraction of 25%. Dr. Rod will be consulted. 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 [facility] note: Name: Carli Koroma Date Of : 1945 Age: 75 years Admit date: 12/07/2020 Discharge date: 12/25/2020 Attending Physician: Tab Patel MD Physician Summary completed by: Tina Cortez PA-C Reason for hospitalization: Chest pain [R07.9] Significant PMH: No past medical history on file. Allergies: Crestor [rosuvastatin] Admission Physical Exam notable for: Chest pain [R07.9] Admission Lab/Radiology studies notable for: Intraop LVEF 10% Brief Hospital Course: Ms. Carli Koroma is a 75 y/o female who was admitted from an outside hospital after undergoing cardiac catheterization for NSTEMI. She was found to have severe multivessel disease and was transferred to [facility] At this time she was admitted to cardiothoracic service. She underwent pre-operative testing and was started on a Heparin drip to maintain up to the OR. She underwent coronary artery bypass grafting and Right femoral IABP placement with Dr. Tab Patel on 12/16/20. She was monitored in the intensive care unit following surgery. She was started on pressors and inotropes for acute post-operative vasogenic and cardiogenic shock. The IABP was removed on POD #1 and was c/b loss of pulses in her right foot. Vascular surgery was consulted and she was taken urgently to the OR and underwent R lower extremity thrombectomy. Her RLE pulses returned and there was no evidence of compartment syndrome. She returned to the ICU and was extubated shortly after the procedure. She was diuresed for volume overload and her inotropes were weaned down slowly. The patient was transferred to the cardiothoracic progressive care unit on post operative day #4. Her Milrinone was weaned off and she underwent a repeat TTE that demonstrated an LVEF of 25%. Heart failure was consulted to help with her GDMT. A Life Vest was ordered and placed on patient prior to discharge. Physical and Occupational therapy felt that she would benefit from acute inpatient rehab after discharge. Rehab medicine was consulted and agreed that [facility] would be appropriate. She increased her activity and oral intake daily. The patient had normal bowel and bladder function. She was stable to be discharged to [facility] on post operative day#9. Her Lifevest is in place and she will continue on Plavix for recent NSTEMI. She will continue lasix 40 mg daily, toprol XL 25mg daily, spironolactone 25mg daily, and cozaar 25 mg daily per HF recommendations. She has an appointment with Business Process Lead Dr. Eduardo Rod in [place], [place] on 01/01/21. She will f/u with surgery on 01/07/[address] Patel on 01/08/21. Condition at Discharge: Stable Past Eqfhgjs-[id number]-Dmjdln Hx Past Med/Social Hx: Reviewed Nursing Past Med/Soc Hx, Reviewed and Corrections made Patient Social History Marrital Status: Employed/Student: retired Alcohol Use: Denies Use Smoking Status: Never a Smoker Past Medical History Surgeries: Open Heart Surgery Cardiac: Cardiomyopathy, Coronary Artery Disease, High Cholesterol, Hypertension Musculoskeletal: Chronic Back Pain, Gout Endocrine: Diabetes, Non-Insulin dep PM&R Allergy/Meds/Data Review Allergies Coded Allergies: No Known Drug Allergies (Unverified , 12/06/20) Home Medications Scheduled Allopurinol (Allopurinol), 100 MG PO DAILY, (Reported) Aspirin (Aspirin), 81 MG PO DAILY, (Reported) Clopidogrel Bisulfate (Clopidogrel), 75 MG PO DAILY, (Reported) Ezetimibe (Ezetimibe), 10 MG PO HS, (Reported) Furosemide (Furosemide), 40 MG PO DAILY, (Reported) Gabapentin (Neurontin), 300 MG PO 0700,1200, (Reported) Gabapentin (Neurontin), 300-600 MG PO HS, (Reported) Losartan Potassium (Losartan Potassium), 25 MG PO DAILY, (Reported) Metoprolol Succinate (Metoprolol Succinate), 25 MG PO HS, (Reported) Potassium Chloride (K-Tab ER), 20 MEQ PO DAILY, (Reported) Rosuvastatin Calcium (Rosuvastatin Calcium), 10 MG PO Q72H, (Reported) Sennosides/Docusate Sodium (Senna-S Tablet), 2 EACH PO BID, (Reported) Sitagliptin Phos/Metformin HCl (Janumet 50-1,000 mg Tablet), 1 EA PO BID, (Reported) Spironolactone (Aldactone), 25 MG PO DAILY, (Reported) Vit C/E/Zn/Coppr/Lutein/Zeaxan (Preservision Areds 2 Softgel), 1 EACH PO DAILY, (Reported) Scheduled PRN Acetaminophen (Tylenol), 650 MG PO Q6H PRN for PAIN-MILD (1-4), (Reported) Tramadol HCl (Tramadol HCl), 25 MG PO Q6H PRN for PAIN-MODERATE (5-7), (Reported) Current Medications Current Medications Reviewed Review of Systems Constitutional: see HPI, malaise, weakness Respiratory: dyspnea on exertion Musculoskeletal: joint pain, muscle pain, muscle stiffness Physical Exam Physical Exam Vital Signs Vital Signs - First Documented 12/25/20 13:40 Temp 36.2 Pulse 93 Resp 16 B/P (MAP) 159/67 (97) Pulse Ox 95 O2 Delivery Room Air Capillary Refill : Height, Weight, BMI Height: '" Weight: lbs. oz. kg; 24.01 BMI Method: General Appearance: No Apparent Distress, WD/WN, Chronically ill, Thin Eyes: Bilateral Eye Normal Inspection, Bilateral Eye PERRL HEENT: PERRL/EOMI, Normal ENT Inspection, Pharynx Normal Neck: Full Range of Motion, Normal Inspection, Non Tender, Supple, Carotid Bruit Respiratory: Chest Non Tender, Lungs Clear, Normal Breath Sounds, No Accessory Muscle Use, No Respiratory Distress Cardiovascular: Regular Rate, Rhythm, No Edema, No Gallop, No JVD, No Murmur, Normal Peripheral Pulses Gastrointestinal: Normal Bowel Sounds, No Organomegaly, No Pulsatile Mass, Non Tender, Soft Back: Normal Inspection, No CVA Tenderness, No Vertebral Tenderness Extremity: Normal Capillary Refill, Normal Inspection, Normal Range of Motion, Non Tender, No Calf Tenderness, No Pedal Edema Neurologic/Psychiatric: Alert, Oriented x3, No Motor/Sensory Deficits, Normal Mood/Affect, Motor Weakness (Generalized 3/5 all extremities) Skin: Normal Color, Warm/Dry Lymphatic: No Adenopathy PM&R Medical Assessment & Plan REHAB/MEDICAL ASSESSMENT AND PLAN: REHAB IMPAIRMENT GROUP: Critical illness myopathy ETIOLOGIC DIAGNOSIS: Critical illness myopathy The comorbidities that impact the patients function and/or functional outcome by: Suppressed systolic function of 25% requiring LifeVest, emergent embolectomy of the right leg, advanced age REHAB PLAN: The patient is being admitted to our comprehensive inpatient rehabilitation facility and can tolerate the intensity of service consisting of at least: 180 minutes of therapy a day, 5 out of 7 days a week Rehab treatment will consist of: PT and OT will focus on regaining enough function to regain ambulatory skills and increase independence in ADLs The patient/family has a good understanding of our discharge process and will benefit from an interdisciplinary inpatient rehabilitation program. The patient has potential to make improvement and is in need of at least two of the following multidisciplinary therapies including but not limited to physical, occupational, speech, and prosthetics and orthotics. Additionally the patient will need services from respiratory, nutritional services, wound care, psy chology, etc. (Customize this to each patient). Given the patients complex condition and risk of further medical complications, rehabilitation services cannot be safely or effectively provided at a lower level of care such as a shelter facility. BARRIERS TO DISCHARGE: Severe cardiomyopathy ESTIMATED LOS: 14 days DISPOSITION: Home RELEVANT CHANGES SINCE PREADMISSION SCREENING: I have compared the patients medical and functional status at the time of the preadmission screening and there are: no changes PROGNOSIS: Good REHABILITATION GOALS: 1. PT and OT will focus on regaining enough function to regain ambulatory skills and increase independence in ADLs All the above goals were reviewed with the patient and he/she is in agreement. By signing this document, I acknowledge that I have personally performed a full physical examination on this patient within 24 hours of admission to this inpatient rehabilitation facility and have determined the patient to be able to tolerate the above course of treatment at an intensive level for a reasonable period of time. I will be completing a detailed individualized Plan of Care for this patient by day #4 of the patients stay based upon the Preadmission Screen, the Post-Admission Evaluation, and the therapy evaluations. Admission Dx/Comorbidities: (1) Congestive heart failure Status: Acute ICD Codes: I50.9 - Heart failure, unspecified (2) NSTEMI (non-ST elevated myocardial infarction) ICD Codes: I21.4 - Non-ST elevation (NSTEMI) myocardial infarction (3) Essential (primary) hypertension ICD Codes: I10 - Essential (primary) hypertension (4) HLD (hyperlipidemia) ICD Codes: E78.5 - Hyperlipidemia, unspecified (5) Non-insulin dependent type 2 diabetes mellitus ICD Codes: E11.9 - Type 2 diabetes mellitus without complications Assessment/Plan Assessment and Plan Assess & Plan/Chief Complaint Assessment: Critical illness myopathy Severe cardiomyopathy ejection fraction of 25% requiring LifeVest consulted cardiology CAD previous bypass on 12/16/2020 at Diabetes mellitus Generalized weakness Hypertension Hyperlipidemia Frail status Acute blood loss anemia Status post emergent embolectomy of the right leg post bypass surgery Previous cardiogenic shock Plan: Aggressive therapy Monitor labs closely Accu-Chek twice daily Home meds OTTO SHI DO Dec 25, 2020 14:57
--- NOTE | 2020-12-25 15:17 | Physical Therapy Evaluation ---
PT Evaluation-General Medical Diagnosis Admission Date Dec 25, 2020 at 13:44 Medical Diagnosis: post CABG Onset Date: Dec 25, 2020 Therapy Diagnosis Therapy Diagnosis: weakness; abn gait Precautions Precautions/Isolations: Fall Prevention, Standard Precautions, Pressure Ulcer Weight Bear Status Sternal precautions. Referral Physician: Aniket Reason for Referral: Evaluation/Treatment Medical History Pertinent Medical History: CABG (x2), CAD, DM, [place] Additional Medical History ARF, post COVID in June 2020 Current History Pt admitted to this facility post [place] that resulted in a CABG x 2; pt here for continued skilled therapy services and medical management. Reviewed History: Yes Social History Home: Single Level Current Living Status: Spouse Entry Into Home: Stairs With Railing Prior Prior Level of Function SCALE: Activities may be completed with or without assistive devices. 5-Pgegxqwwse-otozmue completes the activity by him/herself with no assistance from a helper. 5-Set-up or Clean-up Assistance-helper sets up or cleans up; patient completes activity. [place] assists only prior to or following the activity. 4-Supervision or Touching Assistance-helper provides verbal cues and/or bertha lita/steadying and/or contact guard assistance as patient completes activity. Assistance may be provided throughout the activity or intermittently. 3-Partial/Moderate Assistance-helper does LESS THAN HALF the effort. [place] lifts, holds or supports trunk or limbs, but provides less than half the effort. 2-Substantial/Maximal Assistance-helper does MORE THAN HALF the effort. [place] lifts or holds trunk or limbs and provides more than half the effort. 2-Rntqurihk-suhohp does ALL the effort. Patient does none of the effort to complete the activity. Or, the assistance of 2 or more helpers is required for the patient to complete the activity. If activity was not attempted, code reason: 7-Patient Refused. 9-Not Applicable-not attempted and the patient did not perform the activity before the current illness, exacerbation or injury. 10-Not Attempted due to Environmental Limitations-(lack of equipment, weather restraints, etc.). 88-Not Attempted due to Medical Conditions or Safety Concerns. Bed Mobility: 6 Transfers (B,C,W/C): 6 Gait: 6 Stairs: 6 Indoor Mobility (Ambulation): Independent Stairs: Independent Prior Devices Use: None Pt was indep with self care; community ambulator and still drives. PT Evaluation-Current Subjective Agrees to PT. Reports she does feel tired from her drive here. Reports she has been walking short distances a [facility] Pt/Family Goals Return home with her spouse as able. Objective Patient Orientation: Person, Place, Time, Situation ROM/Strength ROM Lower Extremities WNL Strength Lower Extremities B LE strength is grossly 4/5 throughout Integumentary/Posture Integumentary Refer to nursing notes for full assessment. Bowel Incontinence: No Bladder Incontinence: No Posture Thoracic kyphosis with rounded shoulders. Neuromuscular (Tone, Coordination, Reflexes) intact and functional Sensory Vision: Wears Glasses Hearing: Functional Hand Dominance: Right Sensation Right Lower Extremit: Intact Sensation Left Lower Extremity: Intact Transfers Roll Left & Right (QC): 4 Sit to Lying (QC): 3 Lying to Sitting/Side of Bed(Q: 3 Sit to Stand (QC): 3 Chair/Xrk-bp-Nllyp Xfer(QC): 4 Toilet Transfer (QC): 3 Car Transfer (QC): 3 Light assist with sit to from supine and sit to stand transfers. Skilled cues to maintain sternal precautions Gait Does the Patient Walk?: Yes Mode of Locomotion: Walk Anticipated Mode of Locomotion: Walk Walk 10 feet (QC): 4 Walk 50 ft with 2 Turns(QC): 4 Walk 150 ft (QC): 4 Walking 10ft/uneven surface-QC: 4 Gait Assistive Device: FWW Comments/Gait Description Safe and steady gait with light pressure on walker. Wheelchair Training Does the Pt Use a Wheelchair?: No Wheel 50 ft with 2 turns (QC): 9 Wheel 150 ft (QC): 9 Stairs 1 Step (curb) (QC): 3 4 Steps (QC): 88 12 Steps (QC): 88 Walking Assistive Device: Walker Balance Sitting Static: Normal Sitting Dynamic: Normal Standing Static: Fair Standing Dynamic: Fair Picking up an Object (QC): 88 Treatment Co treat with OT as the skill of 2 clinicians indicated for the safe and effective completion of treatment. Pt completed functional bed mobility and transfer tasks as well as gait; in addition completed bathing and dressing and standing at sink to complete hair brushing and brushing her teeth. As OT addressed use and skill completion with UE's; PT addressed core strength/stability, functional transfers, standing dynamic balance and walking surface to surface. Skilled cues verbal and tactile utilized by both clinicians. Functional UE/LE strengthening activities completed as well. Pt sitting EOB post treatment with family present. Assessment/Needs Post CABG with impaired functional strength, balance and activity tolerance that limits bed mobility, transfers and gait. She is unable to effectively care for herself at home. She will benefit from skilled PT services to address these deficits and allow her to return to mod indep mobiltiy at home. Rehab Potential: Good PT Short Term Goals Short Term Goals Time Frame: Jan 01, 2021 Roll Left & Right: 6 Sit to lyin Lying to sitting on side of be: 6 Sit to stand: 4 Chair/pba-lj-vlcsh transfer: 4 Toilet transfer: 4 Car transfer: 4 Walk 150 feet: 4 PT Chcf Goals [employer] Business [employer] Developer Goals PT [employer] Developer Goals Time Frame: Jan 10, 2021 Roll Left & Right (QC): 6 Sit to Lying (QC): 6 Lying-Sitting on Side/Bed(QC): 6 Sit to Stand (QC): 6 Chair/Ahe-qa-Eiefz Xfer(QC): 6 Toilet Transfer (QC): 6 Car Transfer (QC): 6 Does the Patient Walk: Yes Walk 10 feet (QC): 6 Walk 50ft with 2 Turns (QC): 6 Walk 150 ft (QC): 6 Walking 10ft on Uneven Surface: 6 1 Step (curb) (QC): 6 4 Steps (QC): 6 12 Steps (QC): 4 Picking up an Object (QC): 4 Wheel 50 feet with 2 turns (QC: 9 Wheel 150 feet: 9 PT Plan Problem List Problem List: Activity Tolerance, Functional Strength, Safety, Balance, Gait, Transfer, Bed Mobility Treatment/Plan Treatment Plan: Continue Plan of Care Treatment Plan: Bed Mobility, Education, Functional Activity Aydin, Functional Strength, Group Therapy, Gait, Safety, Therapeutic Exercise, Transfers Treatment Duration: Jan 10, 2021 Frequency: At least 5 of 7 days/Wk (IRF) Estimated Hrs Per Day: 1.5 hours per day Patient and/or Family Agrees t: Yes Safety Risks/Education Patient Education: Transfer Techniques, Safety Issues Teaching Recipient: Patient Teaching Methods: Demonstration, Discussion Response to Teaching: Reinforcement Needed Discharge Recommendations Therapy Discharge Recommendati: Post Acute PT Time/GCodes Time In: 1340 Time Out: 1350 (8745-0935 (80 minutes co treat with OT)) Total Billed Treatment Time: 90 Total Billed Treatment visit EVM 10 FA 80 (co treat with Ot) NATHAN CRUZ PT Dec 25, 2020 15:17
--- NOTE | 2020-12-25 15:23 | Occupational Therapy Eval ---
OT Evaluation-General/PLF Medical Diagnosis Admission Date Dec 25, 2020 at 13:44 Medical Diagnosis: s/p CABG Onset Date: Dec 16, 2020 Therapy Diagnosis Therapy Diagnosis: decreased ADL status, weakness Precautions Precautions/Isolations: Fall Prevention, Standard Precautions, Pressure Ulcer Comments Sternal Precautions Referral Physician: Aniket Referral Reason: Evaluation/Treatment Medical History Pertinent Medical History: CABG (x2), CAD, DM, HTN, [place] Additional Medical History ARF, post COVID 2020 Current History Pt admitted to this facility post [place] that resulted in a CABG x 2; pt here for continued skilled therapy services and medical management. Reviewed History: Yes Social History Home: Single Level Current Living Status: Spouse Entry Into Home: Stairs With Railing Steps Into Home: 3 ADL-Prior Level of Function SCALE: Activities may be completed with or without assistive devices. 7-Ajtadgmwln-rzjynlb completes the activity by him/herself with no assistance from a helper. 5-Set-up or Clean-up Assistance-helper sets up or cleans up; patient completes activity. [place] assists only prior to or following the activity. 4-Supervision or Touching Assistance-helper provides verbal cues and/or touching/steadying and/or contact guard assistance as patient completes activity. Assistance may be provided throughout the activity or intermittently. 3-Partial/Moderate Assistance-helper does LESS THAN HALF the effort. [place] lift s, holds or supports trunk or limbs, but provides less than half the effort. 2-Substantial/Maximal Assistance-helper does MORE THAN HALF the effort. [place] lifts or holds trunk or limbs and provides more than half the effort. 7-Gwaitnabt-zahmxu does ALL the effort. Patient does none of the effort to complete the activity. Or, the assistance of 2 or more helpers is required for the patient to complete the activity. If activity was not attempted, code reason: 7-Patient Refused. 9-Not Applicable-not attempted and the patient did not perform the activity before the current illness, exacerbation or injury. 10-Not Attempted due to Environmental Limitations-(lack of equipment, weather restraints, etc.). 88-Not Attempted due to Medical Conditions or Safety Concerns. ADL PLOF Comments Pt reports IND with bathing, dressing, and toileting, has assistance with cleaning from family. her spouse completes the majority of the cooking. Pt independent with functional mobility, no AD. She has a tub/shower, with an extended bath bench, hand held shower head. Self Care: Independent Functional Cognition: Independent DME/Equipment: Bath Bench, Grab Bars, Tub/Shower OT Current Status Subjective Pt agreeable to OT evaluation and OT/PT cotreat. Family present during session. Pt denies pain. Mental Status/Objective Patient Orientation: Person, Place, Time, Situation Attachments: Other-See Comments (LifeVest) Current Glasses/Contacts: Yes Hand Dominance: Right Upper Extremity ROM WFL, BUE shoulder flexion to approx 150 degrees. (One arm tested at a time due to sternal precaution) Upper Extremity Coordination WFL Upper Extremity Sensation WFL Upper Extremity Strength grossly 3+/5, not formally tested due to sternal precautions. ADL-Treatment Eating (QC): 6 (Per pt report, independent with lunch) Oral Hygiene (QC): 4 (standing at sink, SBA) Shower/Bathe Self (QC): 4 (CGA, pt completed sponge bath able to wash/dry all parts.) Upper Body Dressing (QC): 3 (Min A with LifeVest, set up for chain puller shirt.) Lower Body Dressing (QC): 4 (CGA, pt able to doff/don pants.) On/Off Footwear (QC): 5 (set up assist, pt able to doff/don slip on shoes.) Toileting Hygiene (QC): 4 (CGA) Other Treatments OT evaluation complete, then OT/PT cotreat due to skill of 2 clinicians required which a clinical rehabilitation specialist could not perform in order to coordinate UE/LEs, decrease fall risk, and due to pt's limitations in strength, activity tolerance, and mobi lity. OT focused on UE placement, ADLs, cues for sequencing and safety, PT focused on LE placement, overall gross movement, core strength/stability and transfers/mobility. Pt completed toileting, and stood at sink to wash hands. Pt performed functional mobility and transfers around ARU common using FWW, area including uneven surface, step, bed mobility, car simulation. Pt took rest break as needed. Pt returned to room, transferring to OR to complete sponge bath and dressing. Pt stood at sink to complete oral care, taking seated rest break after task. Pt performed functional mobility to ARU common area. Education provided on ARU expectations and process, and pt completed various UE/LE exercises. UE exercises include the following BUE: x10 reps shoulder flexion (1 arm at a time), x15 elbow flexion/extension, and x15 reps finger flexion/extension. Pt used FWW to return to room, sitting EOB. Post tx, pt EOB, family present, all needs met, call light in reach. Min assist with sit to from supine and sit to stand transfers. Skilled cues to maintain sternal precautions Education OT Patient Education: Correct positioning, Energy conservation, Exercise program, Home exercise program, Modified ADL techniques, Progress toward Goal/Update tx plan, Purpose of tx/functional activities, Rehab process, Safety issues, Transfer techniques Teaching Recipient: Patient Teaching Methods: Discussion Response to Teaching: Verbalize Understanding OT Short Term Goals Short Term Goals Time Frame: Jan 03, 2021 Toileting hygiene: 5 Shower/bathe self: 5 Upper body dressin Lower body dressin Putting on/taking off footwear: 5 OT Skilled Nursing Goals Skilled Nursing Goals Time Frame: Jan 17, 2021 Eating (QC): 6 Oral Hygiene (QC): 6 Toileting Hygiene (QC): 6 Shower/Bathe Self (QC): 6 Upper Body Dressing (QC): 6 Lower Body Dressing (QC): 6 On/Off Footwear (QC): 6 Additional Goals: 1-Demonstrate ADL Tasks, 2-Verbalize Understanding, 3- ImproveStrength/Aydin 1=Demonstrate adherence to instructed precautions during ADL tasks. 2=Patient will verbalize/demonstrate understanding of assistive devices/modifications for ADL. 3=Patient will improve strength/tolerance for activity to enable patient to perform ADL's. OT Education/Plan Problem List/Assessment Assessment: Decreased Activ Tolerance, Decreased UE Strength, Impaired Funct Balance, Impaired I ADL's, Impaired Self-Care Skills Discharge Recommendations Plan/Recommendations: Continue POC Treatment Plan/Plan of Care Patient would benefit from OT for education, treatment and training to promote independence in ADL's, mobility, safety and/or upper extremity function for ADL's. Plan of Care: ADL Retraining, Functional Mobility, Group Exercise/Act as Ind, UE Funct Exercise/Act Treatment Duration: Jan 17, 2021 Frequency: At least 5 of 7 days/Wk (IRF) Estimated Hrs Per Day: 1.5 hours per day Rehab Potential: Good Time/GCodes Start Time: 13:50 Stop Time: 15:20 Total Time Billed (hr/min): 90 Billed Treatment Time 6425-9604 OT eval (10'), 2119-0703 OT/PT cotreat (80') 1, EVM (10'), FA 2 (35), ADL 3 (45) ZUNLIDA RAMEY OT Dec 25, 2020 15:22
[2020-12-25] MEDS: metFORMIN 500 MG (GLUCOPHAGE) TAB PO SCH (17:43)
[2020-12-25 20:00] VITALS: BP 93/54
[2020-12-25] MEDS: polyethylene glycoL POWDER 17 GM (MIRALAX) PACK PO SCH (20:21)
[2020-12-25] MEDS: ACETAMINOPHEN 325 MG TABLET PO PRN (20:58)
[2020-12-25] MEDS: eZETimibe 10 MG (ZETIA) TABLET PO SCH (20:58)
[2020-12-25] MEDS: SENNA W/DOCUSATE (SENOKOT S) TABLET PO SCH (20:59)
[2020-12-25] MEDS: DOCUSATE SODIUM 100 MG (COLACE) CAP PO SCH (20:59)
[2020-12-25] MEDS: GABAPENTIN 300 MG (NEURONTIN) CAP PO SCH (20:59)
[2020-12-25] MEDS ORDERED: SENNA W/DOCUSATE (SENOKOT S) TABLET PO SCH (21:00)
[2020-12-25] MEDS ORDERED: sitaGLIPtin/METFORMIN 50/1000 MG (JANUMET) NON FORM PO SCH (21:00)
[2020-12-26] MEDS: KCL 20 MEQ TAB (K-DUR) PO SCH (06:21)
[2020-12-26] MEDS: GABAPENTIN 300 MG (NEURONTIN) CAP PO SCH ×3 (06:21→19:47)
[2020-12-26 06:24] LABS: BASOPHILS # (AUTO) 0.1 10^3/uL (0.0-0.1); BASOPHILS % (AUTO) 1 % (0-10); EOSINOPHILS # (AUTO) 0.3 10^3/uL (0.0-0.3); EOSINOPHILS % (AUTO) 3 % (0-10); HEMATOCRIT 34 % (35-52); LYMPHOCYTES # (AUTO) 1.3 10^3/uL (1.0-4.0); LYMPHOCYTES % (AUTO) 13 % (12-44); MEAN CORPUSCULAR HEMOGLOBIN 31 pg (25-34); MEAN CORPUSCULAR HGB CONC 32 g/dL (32-36); MEAN CORPUSCULAR VOLUME 97 fL (80-99); MEAN PLATELET VOLUME 9.2 fL (9.0-12.2); MONOCYTES # (AUTO) 1.2 10^3/uL (0.0-1.0); MONOCYTES % (AUTO) 12 % (0-12); NEUTROPHILS # (AUTO) 6.8 10^3/uL (1.8-7.8); NEUTROPHILS % (AUTO) 69 % (42-75); PLATELET COUNT 250 10^3/uL (130-400); WHITE BLOOD COUNT 9.8 10^3/uL (4.3-11.0)
[2020-12-26 06:33] LABS: ALBUMIN 3.7 GM/DL (3.2-4.5)
--- NOTE | 2020-12-26 06:33 | Individualized Plan of Care ---
Individualized Plan of Care Rehab Nursing IPOC Order Admission Date Dec 25, 2020 at 13:44 Current Orders Orders Follow-Up Appointment (12/25/20 10:16) Admission Order(Inpt,Obs,Sdc) (12/25/20 12:19) Vital Signs: Per Unit Policy ( 08,16,00 (12/25/20 12:19) Prabhakar Mattson (12/25/20 12:19) Sequential Compression Device .admit (12/25/20 12:19) Bulk Plant Supervisor-Inpt Rehab Con (12/25/20 12:19) Rehab Nursing Orders-Ipoc (12/25/20 12:19) Physical Therapy Rehab Orders (12/25/20 12:19) Occupational Therapy Rehab Ord (12/25/20 12:19) Speech Therapy Rehab Orders (12/25/20 12:19) Cbc With Automated Diff (12/26/20 06:00) Comprehensive Metabolic Panel (12/26/20 06:00) Precautions (Aru) (12/25/20 12:19) Rehab-Intensity Of Therapy (12/25/20 12:19) Initiate Admission Nursing Pro .admission (12/25/20 12:19) Acetaminophen Tablet/Caplet (Tylenol T (12/25/20 12:30) Alprazolam Tablet (Xanax Tablet) (12/25/20 12:30) Calcium Carbonate Chew Tablet (Antacid C (12/25/20 12:30) Diphenhydramine Tablet (Benadryl Tablet) (12/25/20 12:30) Docusate Sodium Capsule (Colace Capsule) (12/25/20 21:00) Docusate Sodium Capsule (Colace Capsule) (12/25/20 12:30) Bisacodyl Suppository (Dulcolax Supposit (12/25/20 12:30) Lactulose Oral Solution (Enulose Oral So (12/25/20 12:30) Na Phos/Na Biphos Enema (Fleet Enema Larry (12/25/20 12:30) Guaifenesin/Codeine Syrup (Robitussin Ac (12/25/20 12:30) Hydrocodone/Apap 5/325 Tablet (Lortab 5 (12/25/20 12:30) Loperamide Tablet (Imodium Tablet) (12/25/20 12:30) Melatonin Tablet (Melatonin Tablet) (12/25/20 12:30) Polyethylene Glycol Powder Pkt (Miralax (12/25/20 21:00) Ondansetron Oral Dissolve Tab (Zofran (12/25/20 12:30) Senna S Tablet (Senokot S Tablet) (12/25/20 21:00) Code/Resuscitation (12/25/20 12:19) Initiate Admission Nursing Pro .admission (12/25/20 12:19) Admission Arrival Bed Request (12/25/20 13:44) Acetaminophen Tablet/Caplet (Tylenol T (12/25/20 15:00) Allopurinol Tablet (Zyloprim Tablet) (12/26/20 09:00) Aspirin Chewable Tablet (Baby Aspirin Ch (12/26/20 08:00) Clopidogrel Tablet (Plavix Tablet) (12/26/20 09:00) Ezetimibe Tablet (Zetia Tablet) (12/25/20 21:00) Furosemide Tablet (Lasix Tablet) (12/26/20 09:00) Gabapentin Capsule/Tablet (Neurontin Cap (12/26/20 07:00) Gabapentin Capsule/Tablet (Neurontin Cap (12/25/20 21:00) Losartan Tablet (Cozaar Tablet) (12/26/20 09:00) Metoprolol Succinate (Xl) Tab (Toprol Xl (12/25/20 21:00) Senna S Tablet (Senokot S Tablet) (12/25/20 21:00) Sitagliptin/Metformin (Non-For (Janumet (12/25/20 21:00) Spironolactone Tablet (Aldactone Tablet) (12/26/20 08:00) Tramadol Tablet (Ultram Tablet) (12/25/20 15:00) (Nf) Potassium Chloride (K-Tab Er) (12/26/20 09:00) Therapeutic Multivitamin Tab (Vitamins, (12/26/20 07:00) Patient Visit (12/25/20 ) Pt Eval Moderate Complexity (12/25/20 ) Functional Activities, Ea 15 (12/25/20 ) Potassium Chloride (Tablet) (K Dur Table (12/26/20 07:00) Rosuvastatin Tablet (Crestor Tablet) (12/28/20 21:00) Linagliptin Tablet (Tradjenta Tablet) (12/26/20 08:00) Metformin Tablet (Glucophage Tablet) (12/25/20 18:00) Heart Healthy (12/25/20 Dinner) Consult Cardiology (12/25/20 17:32) Patient Visit (12/26/20 ) Exercise Therap, Ea 15 Min (12/26/20 ) Gait Training, Ea 15 Min (12/26/20 ) Ex Neuromuscular, Ea 15 Min (12/26/20 ) Consult Cardiology (12/26/20 12:31) Patient Visit (12/26/20 ) Speech Sound Lang Comp (12/26/20 ) Treat. Speech/Lang/Voice (12/26/20 ) Patient Visit (12/26/20 ) Gait Training, Ea 15 Min (12/26/20 ) Rehab Nursing Orders: Ongoing Assess. of Cognitive Status, Ongoing Assess. of Function Status, Bladder Management, Bladder Scan, Bladder Training, Bowel Management, Bowel Training, Disease Management & Educaiton, DVT Prophylaxis, Fall Prevention, Fluid/Electrolyte/Nutrition Mgmt, Infection Prevention, Medication Management & Education, Management of Risks & Complications, M anagement of Skin Intergrity, Nutrition Management, Pain Management, Patient/Family Support, Safety Management Intensity of Therapy to be met Patient to be seen: Min.3h per day/5 of 7d PT IPOC Problem List: Activity Tolerance, Functional Strength, Safety, Balance, Gait, Transfer, Bed Mobility Treatment Plan: Continue Plan of Care Bed Mobility, Education, Functional Activity Aydin, Functional Strength, Group Therapy, Gait, Safety, Therapeutic Exercise, Transfers Treatment Duration: Jan 10, 2021 Frequency: At least 5 of 7 days/Wk (IRF) Estimated Hrs Per Day: 1.5 hours per day OT IPOC Problems: Decreased Activ Tolerance, Decreased UE Strength, Impaired Funct Balance, Impaired I ADL's, Impaired Self-Care Skills OT Treatment, Training and Edu: Yes Plan of Care: ADL Retraining, Functional Mobility, Group Exercise/Act as Ind, UE Funct Exercise/Act Treatment Duration: Jan 17, 2021 Frequency: At least 5 of 7 days/Wk (IRF) Estimated Hrs Per Day: 1.[address] IPOC Speech Therapy Treatment Plan: Discontinue ST Treatment Duration: Dec 26, 2020 Frequency: Modified Program (IRF) Estimated Hrs Per Day: Other Bulk Plant Supervisor/Case Mgmt Bulk Plant Supervisor/Case Managemen: Discharge Planning Dietitian/Sectionizer Dietitian/Sectionizer to monitor nutritional status and make changes and/or recommendations as needed and work with speech pathology on dietary upgrades as the occur. Physician IPOC Medical Issues being managed closely and that require the 24 hour availability of a physician: Patient with recent cardiogenic shock following bypass surgery and an emergent right lower extremity embolectomy will require close monitoring from cardiology and maintain LifeVest due to suppressed systolic function Medical Issues: Bowel/Bladder Function, DVT Prophylaxis, Falls Precautions, Fluid/Electrolyte/Nutrition Balance, Infection Protection, Pain Management Brief Synthesis of Preadmission Screen, Post-Admission Evaluation, and Therapy Evaluations: PT and OT will focus on regaining function while maintaining a LifeVest and helping increase stamina while supporting cardiothoracic and pulmonary function in order to regain enough function to go home Medical Prognosis: Good Anticipated Length of Stay: 10 days OTTO SHI DO Dec 26, 2020 06:33
--- NOTE | 2020-12-26 06:33 | PM&R Progress Note ---
Subjective HPI/CC On Admission Date Seen by Provider: Dec 26, 2020 Time Seen by Provider: 11:00 Subjective/Events-last exam 12/26/2020: Pt doing pretty well Cardiology consulted Hgb 11.0 Bowels moving pretty well Checked meds and labs No falls Overall slept very well last night Review of Systems General: Fatigue, Malaise Pulmonary: Dyspnea Objective Exam Vital Signs Vital Signs Date Time Temp Pulse Resp B/P (MAP) Pulse Ox O2 Delivery O2 Flow Rate FiO2 12/26/20 20:00 36.4 90 20 129/62 (84) 98 Room Air Capillary Refill : General Appearance: No Apparent Distress, WD/WN, Chronically ill, Thin HEENT: PERRL/EOMI, Normal ENT Inspection, Pharynx Normal Neck: Full Range of Motion, Normal Inspection, Non Tender, Supple, Carotid Bruit Respiratory: Chest Non Tender, Lungs Clear, Normal Breath Sounds, No Accessory Muscle Use, No Respiratory Distress Cardiovascular: Regular Rate, Rhythm, No Edema, No Gallop, No JVD, No Murmur, Normal Peripheral Pulses Gastrointestinal: Normal Bowel Sounds, No Organomegaly, No Pulsatile Mass, Non Tender, Soft Back: Normal Inspection, No CVA Tenderness, No Vertebral Tenderness Extremity: Normal Capillary Refill, Normal Inspection, Normal Range of Motion, Non Tender, No Calf Tenderness, No Pedal Edema Neurologic/Psychiatric: Alert, Oriented x3, No Motor/Sensory Deficits, Normal Mood/Affect, Motor Weakness (Generalized 3/5 all extremities) Skin: Normal Color, Warm/Dry Lymphatic: No Adenopathy Results/Procedures Lab Laboratory Tests 12/26/20 06:14 Patient resulted labs reviewed. FIM Transfers Therapy Code Descriptions/Definitions Functional [place] Measure: 0=Not Assessed/NA 4=Minimal Assistance 1=Total Assistance 5=Supervision or Setup 2=Maximal Assistance 6=Modified [place] 3=Moderate Assistance 7=Complete IndependenceSCALE: Activities may be completed with or without assistive devices. 3-Rxclaabebf-ohfcvts completes the activity by him/herself with no assistance from a helper. 5-Set-up or Clean-up Assistance-helper sets up or cleans up; patient completes activity. [place] assists only prior to or following the activity. 4-Supervision or Touching Assistance-helper provides verbal cues and/or touching/steadying and/or contact guard assistance as patient completes activity. Assistance may be provided throughout the activity or intermittently. 3-Partial/Moderate Assistance-helper does LESS THAN HALF the effort. [place] lifts, holds or supports trunk or limbs, but provides less than half the effort. 2-Substantial/Maximal Assistance-helper does MORE THAN HALF the effort. [place] lifts or holds trunk or limbs and provides more than half the effort. 1-Eibmphiwa-eyvold does ALL the effort. Patient does none of the effort to complete the activity. Or, the assistance of 2 or more helpers is required for the patient to complete the activity. If activity was not attempted, code reason: 7-Patient Refused. 9-Not Applicable-not attempted and the patient did not perform the activity before the current illness, exacerbation or injury. 10-Not Attempted due to Environmental Limitations-(lack of equipment, weather restraints, etc.). 88-Not Attempted due to Medical Conditions or Safety Concerns. Roll Left to Right (QC): 4 Sit to Lying (QC): 3 Sit to Stand (QC): 3 Chair/Lcl-nw-Cafks Xfer(QC): 4 Car Transfer (QC): 3 Gait Training Does the Patient Walk?: Yes Walk 10 feet (QC): 4 Walk 50 ft with 2 Turns(QC): 4 Walk 150 ft (QC): 4 Walking 10ft/uneven surface-QC: 4 Gait Assistive Device: FWW Wheelchair Training Does the Pt Use a Wheelchair?: No Wheel 50 ft with 2 turns (QC): 9 Wheel 150 ft (QC): 9 Stair Training 1 Step (curb) (QC): 3 4 Steps (QC): 88 12 Steps (QC): 88 Balance Picking up an Object (QC): 88 ADL-Treatment Eating (QC): 6 (Per pt report, independent with lunch) Oral Hygiene (QC): 4 (standing at sink, SBA) Shower/Bathe Self (QC): 4 (CGA, pt completed sponge bath able to wash/dry all parts.) Upper Body Dressing (QC): 3 (Min A with LifeVest, set up for loin puller shirt.) Lower Body Dressing (QC): 4 (CGA, pt able to doff/don pants.) On/Off Footwear (QC): 5 (set up assist, pt able to doff/don slip on shoes.) Toileting Hygiene (QC): 4 (CGA) Assessment/Plan Assessment and Plan Assess & Plan/Chief Complaint Assessment: Critical illness myopathy Severe cardiomyopathy ejection fraction of 25% requiring LifeVest consulted cardiology CAD previous bypass on 12/16/2020 at Diabetes mellitus Generalized weakness Hypertension Hyperlipidemia Frail status Acute blood loss anemia Status post emergent embolectomy of the right leg post bypass surgery Previous cardiogenic shock Plan: Aggressive therapy Monitor labs closely Accu-Chek twice daily Home meds 12/26/2020: Supportive care Monitor oxygen level Aggressive treatment to regain function (1) Congestive heart failure Status: Acute (2) NSTEMI (non-ST elevated myocardial infarction) (3) Essential (primary) hypertension (4) HLD (hyperlipidemia) (5) Non-insulin dependent type 2 diabetes mellitus OTTO SHI DO Dec 26, 2020 06:33
[2020-12-26 06:34] LABS: POTASSIUM 4.5 MMOL/L (3.6-5.0)
[2020-12-26 06:35] LABS: CALCIUM 9.6 MG/DL (8.5-10.1)
[2020-12-26 06:36] LABS: TOTAL PROTEIN 6.9 GM/DL (6.4-8.2)
[2020-12-26 06:38] LABS: BILIRUBIN,TOTAL 0.9 MG/DL (0.1-1.0)
[2020-12-26 06:40] LABS: CREATININE SERUM 0.81 MG/DL (0.60-1.30)
[2020-12-26 07:53] VITALS: BP 105/55
--- NOTE | 2020-12-26 08:42 | Physical Therapy Daily Note ---
PT Daily Note-Current Subjective Pt reports she is "worn out" from yesterday. Agrees to PT. Reports she is anxious to go home. Transfers SCALE: Activities may be completed with or without assistive devices. 6-Sddbkpgzmq-gaqucit completes the activity by him/herself with no assistance from a helper. 5-Set-up or Clean-up Assistance-helper sets up or cleans up; patient completes activity. [place] assists only prior to or following the activity. 4-Supervision or Touching Assistance-helper provides verbal cues and/or touching/steadying and/or contact guard assistance as patient completes activity. Assistance may be provided throughout the activity or intermittently. 3-Partial/Moderate Assistance-helper does LESS THAN HALF the effort. [place] lifts, holds or supports trunk or limbs, but provides less than half the effort. 2-Substantial/Maximal Assistance-helper does MORE THAN HALF the effort. [place] lifts or holds trunk or limbs and provides more than half the effort. 5-Czyzlqyzg-mdbevj does ALL the effort. Patient does none of the effort to complete the activity. Or, the assistance of 2 or more helpers is required for the patient to complete the activity. If activity was not attempted, code reason: 7-Patient Refused. 9-Not Applicable-not attempted and the patient did not perform the activity before the current illness, exacerbation or injury. 10-Not Attempted due to Environmental Limitations-(lack of equipment, weather restraints, etc.). 88-Not Attempted due to Medical Conditions or Safety Concerns. Sit to Stand (QC): 4 (SBA and maintains sternal precautions.Multiple sit to stand transfers during course of session. ) Toilet Transfer (QC): 4 (Toilet transfer x 2 reps. ) Weight Bearing Sternal precautions. Gait Training Does the Patient Walk?: Yes Walk 10 feet (QC): 4 Walk 50 ft with 2 Turns(QC): 4 Walk 150 ft (QC): 4 Gait Assistive Device: FWW Pt walked 50 ft x 2 with FWW with 2 turns. Pt able to walk x 10 ft in her bathroom. Pt ambulated 150 ft x 3 reps with FWW with SBA. Exercises Seated Therapy Exercises: Ankle pumps, Long arc quads, Hip flexion, Hip abd/add Seated Reps: 15 (Functional strength and activity tolerance progression) Standing: Heel/toe raises, Marching, Mini squats Standing Reps: 10 (to increase functional activity tolerance, functional strength and dynamic standng param. ) Treatments Gait, toileting, strength and dynamic balance training. Utilized rest breaks to provide safety education and energy conservation tech educt. Assessment Current Status: Good Progress Tired tody but cooperative and did well. PT Short Term Goals Short Term Goals Time Frame: Jan 01, 2021 Roll Left & Right: 6 Sit to lyin Lying to sitting on side of be: 6 Sit to stand: 4 Chair/eir-jx-czhqp transfer: 4 Toilet transfer: 4 Car transfer: 4 Walk 150 feet: 4 PT Slater Apprentice Goals Slater Apprentice Goals PT Residential Goals Time Frame: Jan 10, 2021 Roll Left & Right (QC): 6 Sit to Lying (QC): 6 Lying-Sitting on Side/Bed(QC): 6 Sit to Stand (QC): 6 Chair/Fag-ol-Dgkjh Xfer(QC): 6 Toilet Transfer (QC): 6 Car Transfer (QC): 6 Does the Patient Walk: Yes Walk 10 feet (QC): 6 Walk 50ft with 2 Turns (QC): 6 Walk 150 ft (QC): 6 Walking 10ft on Uneven Surface: 6 1 Step (curb) (QC): 6 4 Steps (QC): 6 12 Steps (QC): 4 Picking up an Object (QC): 4 Wheel 50 feet with 2 turns (QC: 9 Wheel 150 feet: 9 PT Plan Problem List Problem List: Activity Tolerance, Functional Strength, Safety, Balance, Gait, Transfer, Bed Mobility Treatment/Plan Treatment Plan: Continue Plan of Care Treatment Plan: Bed Mobility, Education, Functional Activity Aydin, Functional Strength, Group Therapy, Gait, Safety, Therapeutic Exercise, Transfers Treatment Duration: Jan 10, 2021 Frequency: At least 5 of 7 days/Wk (IRF) Estimated Hrs Per Day: 1.5 hours per day Patient and/or Family Agrees t: Yes Safety Risks/Education Patient Education: Transfer Techniques, Safety Issues Teaching Recipient: Patient Teaching Methods: Demonstration, Discussion Response to Teaching: Reinforcement Needed Time/GCodes Time In: 745 Time Out: 845 Total Billed Treatment Time: 60 Total Billed Treatment visit EX 15 GT 30 NM 15 NATHAN CRUZ PT Dec 26, 2020 08:42
[2020-12-26] MEDS ORDERED: NON-FORMULARY MEDICATION 1 EA EA (Potassium Chloride (K-Tab ER) 20 MEQ) PO SCH (09:00)
[2020-12-26] MEDS: LOSARTAN 25 MG (COZAAR) TAB PO SCH (09:14)
[2020-12-26] MEDS: SENNA W/DOCUSATE (SENOKOT S) TABLET PO SCH ×2 (09:14→19:47)
[2020-12-26] MEDS: CLOPIDOGREL 75 MG (PLAVIX) TABLET PO SCH (09:14)
[2020-12-26] MEDS: MULTIVIT W/MINERALS TAB (THERAGRAN M) PO SCH (09:14)
[2020-12-26] MEDS: DOCUSATE SODIUM 100 MG (COLACE) CAP PO SCH ×2 (09:15→19:47)
[2020-12-26] MEDS: FUROSEMIDE 40 MG (LASIX) TAB PO SCH (09:15)
[2020-12-26] MEDS: metFORMIN 500 MG (GLUCOPHAGE) TAB PO SCH ×2 (09:15→17:07)
[2020-12-26] MEDS: polyethylene glycoL POWDER 17 GM (MIRALAX) PACK PO SCH ×2 (09:15→19:43)
[2020-12-26] MEDS: ASPIRIN 81 MG CHEW (CHILDREN'S ASA) PO SCH (09:15)
[2020-12-26] MEDS: ALLOPURINOL 100 MG (ZYLOPRIM) TAB PO SCH (09:15)
[2020-12-26] MEDS: SPIRONOLACTONE 25 MG (ALDACTONE) TAB PO SCH (09:15)
--- NOTE | 2020-12-26 10:16 | Occupational Ther Daily Note ---
OT Current Status-Daily Note Subjective Pt seated in recliner, family present. Pt agreeable to OT tx, states she is tired today. Mental Status/Objective Patient Orientation: Person, Place, Time, Situation Attachments: Other-See Comments (LifeVest) ADL-Treatment Therapy Code Descriptions/Definitions Functional [place] Measure: 0=Not Assessed/NA 4=Minimal Assistance 1=Total Assistance 5=Supervision or Setup 2=Maximal Assistance 6=Modified [place] 3=Moderate Assistance 7=Complete IndependenceSCALE: Activities may be completed with or without assistive devices. 1-Ycalejwost-rlnaufa completes the activity by him/herself with no assistance from a helper. 5-Set-up or Clean-up Assistance-helper sets up or cleans up; patient completes activity. [place] assists only prior to or following the activity. 4-Supervision or Touching Assistance-helper provides verbal cues and/or touching/steadying and/or contact guard assistance as patient completes activity. Assistance may be provided throughout the activity or intermittently. 3-Partial/Moderate Assistance-helper does LESS THAN HALF the effort. [place] lifts, holds or supports trunk or limbs, but provides less than half the effort. 2-Substantial/Maximal Assistance-helper does MORE THAN HALF the effort. [place] lifts or holds trunk or limbs and provides more than half the effort. 4-Rbavfmacn-bvskbb does ALL the effort. Patient does none of the effort to complete the activity. Or, the assistance of 2 or more helpers is required for the patient to complete the activity. If activity was not attempted, code reason: 7-Patient Refused. 9-Not Applicable-not attempted and the patient did not perform the activity before the current illness, exacerbation or injury. 10-Not Attempted due to Environmental Limitations-(lack of equipment, weather restraints, etc.). 88-Not Attempted due to Medical Conditions or Safety Concerns. Oral Hygiene (QC): 4 (SBA standing at sink) Upper Body Dressing (QC): 3 (Min A with pin puller shirt due to it catching on LifeVest in back) Lower Body Dressing (QC): 4 (SBA) On/Off Footwear: 5 (set up assist) Other Treatment Pt seated in recliner, OT gathered pt's clothing, then pt used FWW to transfer into bathroom, sitting on SC. Pt donned clothing, taking rest breaks as needed. Then stood at sink to brush teeth. Pt returned to recliner for seated rest break, combing hair with set up assistance. Pt used FWW to perform functional mobility to therapy gym, 1 seated rest break on the way. Pt removed beads from moderate resistance theraputty in order to increase fine motor strength and coordination. Pt then placed 1" pegs into foam pegboard, alternating hands in order to increase activity tolerance and UE strength. Pt able to complete x80 pegs. Pt returned to room using FWW, SBA, with 1 seated rest break. Post tx, pt seated in recliner, call light in reach and all needs met, family present. Education OT Patient Education: Correct positioning, Modified ADL techniques, Progress toward Goal/Update tx plan, Purpose of tx/functional activities, Rehab process Teaching Recipient: Patient Teaching Methods: Discussion Response to Teaching: Verbalize Understanding OT Short Term Goals Short Term Goals Time Frame: Jan 03, 2021 Toileting hygiene: 5 Shower/bathe self: 5 Upper body dressin Lower body dressin Putting on/taking off footwear: 5 OT Snf Goals Snf Goals Time Frame: Jan 17, 2021 Eating (QC): 6 Oral Hygiene (QC): 6 Toileting Hygiene (QC): 6 Shower/Bathe Self (QC): 6 Upper Body Dressing (QC): 6 Lower Body Dressing (QC): 6 On/Off Footwear (QC): 6 Additional Goals: 1-Demonstrate ADL Tasks, 2-Verbalize Understanding, 3- ImproveStrength/Aydin 1=Demonstrate adherence to instructed precautions during ADL tasks. 2=Patient will verbalize/demonstrate understanding of assistive devic es/modifications for ADL. 3=Patient will improve strength/tolerance for activity to enable patient to perform ADL's. OT Education/Plan Problem List/Assessment Assessment: Decreased Activ Tolerance, Decreased UE Strength, Impaired Funct Balance, Impaired I ADL's, Impaired Self-Care Skills Discharge Recommendations Plan/Recommendations: Continue POC Treatment Plan/Plan of Care Patient would benefit from OT for education, treatment and training to promote independence in ADL's, mobility, safety and/or upper extremity function for ADL's. Plan of Care: ADL Retraining, Functional Mobility, Group Exercise/Act as Ind, UE Funct Exercise/Act Treatment Duration: Jan 17, 2021 Frequency: At least 5 of 7 days/Wk (IRF) Estimated Hrs Per Day: 1.5 hours per day Rehab Potential: Good Time/GCodes Start Time: 09:30 Stop Time: 10:45 Total Time Billed (hr/min): 75 Billed Treatment Time 1, ADL 2 (30'), FA 3 (45') ZUNILDA RAMEY OT Dec 26, 2020 10:16
--- NOTE | 2020-12-26 13:21 | Physical Therapy Daily Note ---
PT Daily Note-Current Subjective Pt agreeable to PT. Reports she is tired this afternoon. Hopes to nap later today. Transfers SCALE: Activities may be completed with or without assistive devices. 4-Yxchsnwzot-qhydfwg completes the activity by him/herself with no assistance from a helper. 5-Set-up or Clean-up Assistance-helper sets up or cleans up; patient completes activity. [place] assists only prior to or following the activity. 4-Supervision or Touching Assistance-helper provides verbal cues and/or touching/steadying and/or contact guard assistance as patient completes activity. Assistance may be provided throughout the activity or intermittently. 3-Partial/Moderate Assistance-helper does LESS THAN HALF the effort. [place] lifts, holds or supports trunk or limbs, but provides less than half the effort. 2-Substantial/Maximal Assistance-helper does MORE THAN HALF the effort. [place] lifts or holds trunk or limbs and provides more than half the effort. 8-Mmjzfhugx-legaxn does ALL the effort. Patient does none of the effort to complete the activity. Or, the assistance of 2 or more helpers is required for the patient to complete the activity. If activity was not attempted, code reason: 7-Patient Refused. 9-Not Applicable-not attempted and the patient did not perform the activity before the current illness, exacerbation or injury. 10-Not Attempted due to Environmental Limitations-(lack of equipment, weather restraints, etc.). 88-Not Attempted due to Medical Conditions or Safety Concerns. Sit to Lying (QC): 4 Sit to Stand (QC): 4 Toilet Transfer (QC): 4 Weight Bearing Sternal precautions. Gait Training Walk 50 ft with 2 Turns(QC): 4 Walk 150 ft (QC): 4 Gait Assistive Device: FWW 50 ft, 150 ft and 150 ft with FWW with SBA; skilled cues for posture and foot clearanc.e Treatments Transfers and gait. Pt in bed post treatment. Assessment Current Status: Good Progress Tires this afternoon, as expected. PT Short Term Goals Short Term Goals Time Frame: Jan 01, 2021 Roll Left & Right: 6 Sit to lyin Lying to sitting on side of be: 6 Sit to stand: 4 Chair/njh-yq-pwvns transfer: 4 Toilet transfer: 4 Car transfer: 4 Walk 150 feet: 4 PT Luster Repairer Goals Retirement Goals PT Luster Repairer Goals Time Frame: Jan 10, 2021 Roll Left & Right (QC): 6 Sit to Lying (QC): 6 Lying-Sitting on Side/Bed(QC): 6 Sit to Stand (QC): 6 Chair/Eja-kc-Swoaw Xfer(QC): 6 Toilet Transfer (QC): 6 Car Transfer (QC): 6 Does the Patient Walk: Yes Walk 10 feet (QC): 6 Walk 50ft with 2 Turns (QC): 6 Walk 150 ft (QC): 6 Walking 10ft on Uneven Surface: 6 1 Step (curb) (QC): 6 4 Steps (QC): 6 12 Steps (QC): 4 Picking up an Object (QC): 4 Wheel 50 feet with 2 turns (QC: 9 Wheel 150 feet: 9 PT Plan Problem List Problem List: Activity Tolerance, Functional Strength, Safety, Balance, Gait, Transfer, Bed Mobility Treatment/Plan Treatment Plan: Continue Plan of Care Treatment Plan: Bed Mobility, Education, Functional Activity Aydin, Functional Strength, Group Therapy, Gait, Safety, Therapeutic Exercise, Transfers Treatment Duration: Jan 10, 2021 Frequency: At least 5 of 7 days/Wk (IRF) Estimated Hrs Per Day: 1.5 hours per day Patient and/or Family Agrees t: Yes Time/GCodes Time In: 1300 Time Out: 1318 Total Billed Treatment Time: 18 Total Billed Treatment visit GT 18 NATHAN CRUZ PT Dec 26, 2020 13:21
--- NOTE | 2020-12-26 13:54 | ST Cognitive Linguistic Eval ---
Speech Evaluation-General Medical Diagnosis s/p CABG Onset Date: Dec 16, 2020 Therapy Diagnosis Therapy Diagnosis: Cognitive-communication Referral Referring Physician: Dr. Marcial Medical History Pertinent Medical History: CABG (x2), CAD, DM, HTN, [place] Reviewed History: Yes Social History Current Living Status: Spouse Speech PLF-Current Status Prior Level of Function Patient lives at home where she was independent for her daily needs. She lives with her and has children who are involved with her needs as well. Subjective Patient was pleasant and cooperative with the cognitive assessment. Language Eval: Auditory Comprehends Simple Yes/No Ques: Functional Indent/Objects Multiple Oneil: Functional Ident/Pics in Multiple Oneil: Functional Follows 1-Step Commands: Functional Follows Complex Directions: Functional Follows General Conversations: Functional Language Eval: Verbal Language Completes Spontaneous Greeting: Functional Produces Auto, Serial Info: Functional Imitates Simple Words/Phrases: Functional Word Finding: Functional Requests Basic Needs: Functional States Basic Personal Info: Functional Expresses Complex Ideas: Functional Objective Cognitive Domain Attention: WNL Memory: WNL Problem Solving: Functional Executive Functions: WNL Visuospatial Skills: WNL Composite Severity Rating: WNL Clock Drawing Severity Rating: WNL Objective Formal/Standardized Tests [facility] Mental Status ([facility]) Results 29/30, within normal range of function Oral Motor/Speech Production Within Normal Limits Impression Patient is a pleasant 75 y/o female who was admitted to the ARU s/p CABG x2 with complications. Patient transferred from where her surgery was performed. The patient was given the SLUMS with a score of 29/30 obtained. This score is within the normal range of function and does not indicate a need for further ST services. Speech Patient Assess Expression of Ideas/Wants: Expression (4) Understanding Verbal Content: Understands (4) Brief Interview-Mental Status: Yes Repetition of Three Words: Three (3) Temporal Orientation: Year: Correct (3) Temporal Orientation: Month: Accurate within 5 days(2) Temporal Orientation: Day: Correct (1) Recall : Wear to say "Sock": Yes, no cue required (2) Recall : Color: Yes, no cue required (2) Recall : Bed: Yes,after cueing (1) Memory/Recall Ability: Current season, Location of own room, Staff names and faces, That he or she is in a hsp/hsp unit Speech-Plan Patient/Family Goals Patient/Family Goals: Patient plans on returning to her home where she lives with her . She has other family who are available to assist as needed. Treatment Plan Speech Therapy Treatment Plan: Discontinue ST Treatment Duration: Dec 26, 2020 Frequency: 1 time per week Estimated Hrs Per Day: .5 hour per day Rehab Potential: Good Barriers to Learning: None identified at this time. Safety Risks/Education Teaching Recipient: Patient, Family, Significant Other Teaching Methods: Discussion Response to Teaching: Verbalize Understanding Education Topics Provided: Safety within her room, communication of wants/needs Time Speech Therapy Time In: 11:30 Speech Therapy Time Out: 12:00 Total Billed Time: 30 Billed Treatment Time 1, CELESTINE SALAZAR [place] [address] Dec 26, 2020 13:54
--- NOTE | 2020-12-26 15:17 | Consultation-Cardiology ---
HPI-Cardiology Cardiology Consultation: Date of Consultation 12/26/20 Time Seen by a Provider: 15:30 Date of Admission 12-25-20 Attending Physician Yaritza Marcial DO Admitting Physician Anali,Local Physician Consulting Physician Yoshi Carroll MD Primary Microfilm Mounter: Dr. Toney HPI: Chief Complaint: Post CABG Ms. Koroma is a 75 yr old female admitted to [facility] IRU from [facility] where she had undergone CABG x2 on 12-16-20. She is currently sitting up in the recliner at the bedside. She denies any c/o CP, SOB, palpitations, syncope, near syncope or LE swelling. She reports gen weakness. She has a Life Vest in place. She reports poor appetite. No c/o n/v/d. No c/o fever or chills. Review of Systems-Cardiology Review of Systems Constitutional: No chills, No fever; malaise Eyes: No vision change Ears/Nose/Throat: No epistaxis, No recent hearing loss Respiratory: As described under HPI Cardiovascular: As described under HPI Gastrointestinal: No constipation, No diarrhea, No nausea; poor appetite; No vomiting Genitourinary: No dysuria, No hematuria Skin: other (ACW mid-line incision) Psychiatric/Neurological: No anxiety, No depression, No seizure, No focal weakness, No syncope Hematologic: No bleeding abnormalities EXC-Gqiqlw-Osnbid Hx Patient Social History Marrital Status: Employed/Student: retired Smoking Status: Never a Smoker Have you traveled recently?: No Alcohol Use?: No Pt feels they are or have been: No Past Medical History PMH As described under Assessment. Family Medical History Family Medical History: She reports her mother and father both had CAD. Allergies and Home Medications Allergies Coded Allergies: No Known Drug Allergies (Unverified , 12/06/20) Home Medications Acetaminophen 325 Mg Tablet, 650 MG PO Q6H PRN for PAIN-MILD (1-4), (Reported) Last Action: Continued Allopurinol 100 Mg Tablet, 100 MG PO DAILY, (Reported) Last Action: Continued Aspirin 81 Mg Tab.chew, 81 MG PO DAILY, (Reported) TAKE WITH FOOD Last Action: Continued Clopidogrel Bisulfate 75 Mg Tablet, 75 MG PO DAILY, (Reported) Last Action: Continued Ezetimibe 10 Mg Tablet, 10 MG PO HS, (Reported) Last Action: Continued Furosemide 40 Mg Tablet, 40 MG PO DAILY, (Reported) Last Action: Continued Gabapentin 300 Mg Capsule, 300 MG PO 0700,1200, (Reported) Last Action: Continued Gabapentin 300 Mg Capsule, 300-600 MG PO HS, (Reported) Last Action: Continued Losartan Potassium 25 Mg Tablet, 25 MG PO DAILY, (Reported) Last Action: Continued Metoprolol Succinate 25 Mg Tab.er.24h, 25 MG PO HS, (Reported) Last Action: Continued Potassium Chloride 20 Meq Tablet.er, 20 MEQ PO DAILY, (Reported) TAKES WITH A MEAL AND A FULL GLASS OF WATER Last Action: Converted Rosuvastatin Calcium 10 Mg Tablet, 10 MG PO Q72H, (Reported) Last Action: Continued Sennosides/Docusate Sodium 1 Each Tablet, 2 EACH PO BID, (Reported) Last Action: Continued Sitagliptin Phos/Metformin HCl 1 Each Tablet, 1 EA PO BID, (Reported) Last Action: Continued Spironolactone 25 Mg Tablet, 25 MG PO DAILY, (Reported) TAKE WITH FOOD Last Action: Continued Tramadol HCl 50 Mg Tablet, 25 MG PO Q6H PRN for PAIN-MODERATE (5-7), (Reported) TAKE OF A 50MG TAB Last Action: Continued Vit C/E/Zn/Coppr/Lutein/Zeaxan 1 Each Capsule, 1 EACH PO DAILY, (Reported) Last Action: Converted Physical Exam-Cardiology Physical Exam Vital Signs/I&O 12/26/20 12/26/20 07:53 09:00 Temp 36.2 Pulse 80 Resp 14 B/P (MAP) 105/55 (72) Pulse Ox 94 O2 Delivery Room Air Room Air Capillary Refill : Constitutional: AAO x 3, well-developed, other (thin) HEENT: PERRL, hearing is well preserved, oral hygience is good Neck: No carotid bruit; carotid pulses are 2 + bilaterally Respiratory: No accessory muscle use, No respiratory distress; chest expansion is symmetric, chest is bilaterally symmetric, lungs clear to auscultation Cardiovascular: regular rate-rhythm; No JVD; S1 and S2 Gastrointestinal: No tender; soft, round, audible bowel sounds Extremities: no lower extremity edema bilateral Neurologic/Psychiatric: grossly intact (moves all extremities) Skin: other (Mid-line ACW post surgical incision; edges approx; no redness, no swelling, no drainage) Data Review Labs Laboratory Tests 12/25/20 21:35: Glucometer 145H 12/26/20 05:14: Glucometer 116H 12/26/20 06:14: White Blood Count 9.8, Red Blood Count 3.53L, Hemoglobin 11.0L, Hematocrit 34L, Mean Corpuscular Volume 97, Mean Corpuscular Hemoglobin 31, Mean Corpuscular Hemoglobin Concent 32, Red Cell Distribution Width 17.3H, Platelet Count 250, Mean Platelet Volume 9.2, Immature Granulocyte % (Auto) 2, Neutrophils (%) (Auto) 69, Lymphocytes (%) (Auto) 13, Monocytes (%) (Auto) 12, Eosinophils (%) (Auto) 3, Basophils (%) (Auto) 1, Neutrophils # (Auto) 6.8, Lymphocytes # (Auto) 1.3, Monocytes # (Auto) 1.2H, Eosinophils # (Auto) 0.3, Basophils # (Auto) 0.1, Immature Granulocyte # (Auto) 0.2H, Sodium Level 139, Potassium Level 4.5, Chloride Level 104, Carbon Dioxide Level 23, Anion Gap 12, Blood Urea Nitrogen 16, Creatinine 0.81, Estimat Glomerular Filtration Rate 69, BUN/Creatinine Ratio 20, Glucose Level 122H, Calcium Level 9.6, Corrected Calcium 9.8, Total Bilirubin 0.9, Aspartate Amino Transf (AST/SGOT) 20, Alanine Aminotransferase (ALT/SGPT) 17, Alkaline Phosphatase 71, Total Protein 6.9, Albumin 3.7 12/26/20 12:12: Glucometer 120H Laboratory Tests 12/26/20 06:14 A/P-Cardiology Assessment/Admission Diagnosis CAD: - Severe multivessel coronary artery disease involving ostial LAD, ulcerated plaque with haziness in the proximal/ostial circumflex artery and occluded right coronary artery with collaterals from the left per cardiac cath of 12-07-[address] Toney - S/P CABG x 2 vessel (COFFMAN to LAD; SVG to OM1) on 12-16-20 at [facility] by Dr. Patel - complicated hospitalization at [facility] - acute right lower extremity arterial embolism post IABP removal, requiring emergent embolectomy (successful taoist of blood flow) ICM: - LVEF 30% per cardiac cath of 12-07-20 - LVEF 25% per echocardiogram of 12-20-20 at [facility] post CABG - Life Vest in place - ARB, BB, aldactone - continue HTN - somewhat low BP, asymptomatic HLD - statin tx DM 2 - Management per medical services Discussion and Recomendations Records from [facility] reviewed at length CAD with subsequent CABG - continue ASA and Plavix ICM with LVEF 25% per recent echo - continue Life Vest Continue ARB, BB and aldactone - monitor BP and adjust as tolerated Multiple questions regarding Life Vest - will contact Yani Oseguera, and have her provide pt re-education Monitor lab from time to time Replace electrolytes as indicated Further recs will be based on her hospital course We would like to thank Dr. Marcial for this consult LISSETH DUENAS Dec 26, 2020 15:17
--- NOTE | 2020-12-26 17:13 | Consultation-Cardiology ---
HPI-Cardiology Cardiology Consultation: Date of Consultation 12/26/20 Time Seen by a Provider: 17:00 Date of Admission Attending Physician Yaritza Marcial DO Admitting Physician No,Local Physician Consulting Physician KARSON SMITH MD, MA, FACP, FACC, [facility] [place], [facility] Physician requesting consult: Dr Marcial HPI: Chief Complaint: Reason for consultation: CAD, ischemic CM, post CABG HPI Ms. Koroma is a 75 yr old female admitted to [address]U from [facility] where she had undergone CABG x2 on 12-16-20. She is currently sitting up in the recliner at the bedside. She denies any c/o CP, SOB, palpitations, syncope, near syncope or LE swelling. She reports gen weakness. She has a Life Vest in place. She reports poor appetite. No c/o n/v/d. No c/o fever or chills. Review of Systems-Cardiology Review of Systems Constitutional: No chills, No fever; malaise Eyes: No vision change Ears/Nose/Throat: No epistaxis, No recent hearing loss Respiratory: As described under HPI Cardiovascular: As described under HPI Gastrointestinal: No constipation, No diarrhea, No nausea; poor appetite; No vomiting Genitourinary: No dysuria, No hematuria Skin: other (ACW mid-line incision) Psychiatric/Neurological: No anxiety, No depression, No seizure, No focal weakness, No syncope Hematologic: No bleeding abnormalities BUJ-Ktwvcu-Lasbhr Hx Patient Social History Marrital Status: Employed/Student: retired Smoking Status: Never a Smoker Have you traveled recently?: No Alcohol Use?: No Pt feels they are or have been: No Past Medical History PMH As described under Assessment. Family Medical History Family Medical History: She reports her mother and father both had CAD. Allergies and Home Medications Allergies Coded Allergies: No Known Drug Allergies (Unverified , 12/06/20) Home Medications Acetaminophen 325 Mg Tablet, 650 MG PO Q6H PRN for PAIN-MILD (1-4), (Reported) Last Action: Continued Allopurinol 100 Mg Tablet, 100 MG PO DAILY, (Reported) Last Action: Continued Aspirin 81 Mg Tab.chew, 81 MG PO DAILY, (Reported) TAKE WITH FOOD Last Action: Continued Clopidogrel Bisulfate 75 Mg Tablet, 75 MG PO DAILY, (Reported) Last Action: Continued Ezetimibe 10 Mg Tablet, 10 MG PO HS, (Reported) Last Action: Continued Furosemide 40 Mg Tablet, 40 MG PO DAILY, (Reported) Last Action: Continued Gabapentin 300 Mg Capsule, 300 MG PO 0700,1200, (Reported) Last Action: Continued Gabapentin 300 Mg Capsule, 300-600 MG PO HS, (Reported) Last Action: Continued Losartan Potassium 25 Mg Tablet, 25 MG PO DAILY, (Reported) Last Action: Continued Metoprolol Succinate 25 Mg Tab.er.24h, 25 MG PO HS, (Reported) Last Action: Continued Potassium Chloride 20 Meq Tablet.er, 20 MEQ PO DAILY, (Reported) TAKES WITH A MEAL AND A FULL GLASS OF WATER Last Action: Converted Rosuvastatin Calcium 10 Mg Tablet, 10 MG PO Q72H, (Reported) Last Action: Continued Sennosides/Docusate Sodium 1 Each Tablet, 2 EACH PO BID, (Reported) Last Action: Continued Sitagliptin Phos/Metformin HCl 1 Each Tablet, 1 EA PO BID, (Reported) Last Action: Continued Spironolactone 25 Mg Tablet, 25 MG PO DAILY, (Reported) TAKE WITH FOOD Last Action: Continued Tramadol HCl 50 Mg Tablet, 25 MG PO Q6H PRN for PAIN-MODERATE (5-7), (Reported) TAKE OF A 50MG TAB Last Action: Continued Vit C/E/Zn/Coppr/Lutein/Zeaxan 1 Each Capsule, 1 EACH PO DAILY, (Reported) Last Action: Converted Patient Home Medication List Home Medication List Reviewed: Yes Physical Exam-Cardiology Physical Exam Vital Signs/I&O 12/26/20 12/26/20 07:53 09:00 Temp 36.2 Pulse 80 Resp 14 B/P (MAP) 105/55 (72) Pulse Ox 94 O2 Delivery Room Air Room Air Capillary Refill : Constitutional: AAO x 3, well-developed, other (thin) HEENT: PERRL, hearing is well preserved, oral hygience is good Neck: No carotid bruit; carotid pulses are 2 + bilaterally Respiratory: No accessory muscle use, No respiratory distress; chest expansion is symmetric, chest is bilaterally symmetric, lungs clear to auscultation Cardiovascular: regular rate-rhythm; No JVD; S1 and S2 Gastrointestinal: No tender; soft, round, audible bowel sounds Extremities: no lower extremity edema bilateral Neurologic/Psychiatric: grossly intact (moves all extremities) Skin: other (Mid-line ACW post surgical incision; edges approx; no redness, no swelling, no drainage) Data Review Labs Laboratory Tests 12/25/20 21:35: Glucometer 145H 12/26/20 05:14: Glucometer 116H 12/26/20 06:14: White Blood Count 9.8, Red Blood Count 3.53L, Hemoglobin 11.0L, Hematocrit 34L, Mean Corpuscular Volume 97, Mean Corpuscular Hemoglobin 31, Mean Corpuscular Hemoglobin Concent 32, Red Cell Distribution Width 17.3H, Platelet Count 250, Mean Platelet Volume 9.2, Immature Granulocyte % (Auto) 2, Neutrophils (%) (Auto) 69, Lymphocytes (%) (Auto) 13, Monocytes (%) (Auto) 12, Eosinophils (%) (Auto) 3, Basophils (%) (Auto) 1, Neutrophils # (Auto) 6.8, Lymphocytes # (Auto) 1.3, Monocytes # (Auto) 1.2H, Eosinophils # (Auto) 0.3, Basophils # (Auto) 0.1, Immature Granulocyte # (Auto) 0.2H, Sodium Level 139, Potassium Level 4.5, Chloride Level 104, Carbon Dioxide Level 23, Anion Gap 12, Blood Urea Nitrogen 16, Creatinine 0.81, Estimat Glomerular Filtration Rate 69, BUN/Creatinine Ratio 20, Glucose Level 122H, Calcium Level 9.6, Corrected Calcium 9.8, Total Bilirubin 0.9, Aspartate Amino Transf (AST/SGOT) 20, Alanine Aminotransferase (ALT/SGPT) 17, Alkaline Phosphatase 71, Total Protein 6.9, Albumin 3.7 12/26/20 12:12: Glucometer 120H 12/26/20 16:22: Glucometer 129H A/P-Cardiology Assessment/Admission Diagnosis CAD: - Severe multivessel coronary artery disease involving ostial LAD, ulcerated plaque with haziness in the proximal/ostial circumflex artery and occluded right coronary artery with collaterals from the left per cardiac cath of 12-07-[address] Toney - S/P CABG x 2 vessel (COFFMAN to LAD; SVG to OM1) on 12-16-20 at [facility] by Dr. Patel - complicated hospitalization at [facility] - acute right lower extremity arterial embolism post IABP removal, requiring emergent embolectomy (successful catholic of blood flow) ICM: - LVEF 30% per cardiac cath of 12-07-20 - LVEF 25% per echocardiogram of 12-20-20 at [facility] post CABG - Life Vest in place - ARB, BB, aldactone - continue HTN - somewhat low BP, asymptomatic HLD - statin tx DM 2 - Management per medical services Discussion and Recomendations Records from [facility] reviewed at length CAD with subsequent CABG - continue ASA and Plavix ICM with LVEF 25% per recent echo - continue Life Vest Continue ARB, BB and aldactone - monitor BP and adjust as tolerated Multiple questions regarding Life Vest - will contact Yani Oseguera, and have her provide pt re-education Monitor lab from time to time Replace electrolytes as indicated Further recs will be based on her hospital course We would like to thank Dr. Marcial for this consult KARSON SMITH MD FACP [facility]S Dec 26, 2020 17:13
[2020-12-26] MEDS: eZETimibe 10 MG (ZETIA) TABLET PO SCH (19:47)
[2020-12-26] MEDS: ACETAMINOPHEN 325 MG TABLET PO PRN (19:48)
[2020-12-26 20:00] VITALS: BP 129/62
[2020-12-26] MEDS: MELATONIN 3 MG TABLET PO PRN (22:48)
[2020-12-27] MEDS: KCL 20 MEQ TAB (K-DUR) PO SCH (06:08)
[2020-12-27] MEDS: GABAPENTIN 300 MG (NEURONTIN) CAP PO SCH ×3 (06:08→21:57)
[2020-12-27] MEDS: MULTIVIT W/MINERALS TAB (THERAGRAN M) PO SCH (06:09)
--- NOTE | 2020-12-27 06:20 | PM&R Progress Note ---
Subjective HPI/CC On Admission Date Seen by Provider: Dec 27, 2020 Time Seen by Provider: 10:00 Subjective/Events-last exam 12/27/2020: Pt doing very well Accuchecks BID will be changed for QID Overall doing very well Bowels are functioning well 12/26/2020: Pt doing pretty well Cardiology consulted Hgb 11.0 Bowels moving pretty well Checked meds and labs No falls Overall slept very well last night Review of Systems General: Fatigue, Malaise Neurological: Weakness Objective Exam Vital Signs Vital Signs Date Time Temp Pulse Resp B/P (MAP) Pulse Ox O2 Delivery O2 Flow Rate FiO2 12/27/20 09:01 Room Air 12/27/20 07:51 36.0 90 22 109/55 (73) 94 Capillary Refill : General Appearance: No Apparent Distress, WD/WN, Chronically ill, Thin HEENT: PERRL/EOMI, Normal ENT Inspection, Pharynx Normal Neck: Full Range of Motion, Normal Inspection, Non Tender, Supple, Carotid Bruit Respiratory: Chest Non Tender, Lungs Clear, Normal Breath Sounds, No Accessory Muscle Use, No Respiratory Distress Cardiovascular: Regular Rate, Rhythm, No Edema, No Gallop, No JVD, No Murmur, Normal Peripheral Pulses Gastrointestinal: Normal Bowel Sounds, No Organomegaly, No Pulsatile Mass, Non Tender, Soft Back: Normal Inspection, No CVA Tenderness, No Vertebral Tenderness Extremity: Normal Capillary Refill, Normal Inspection, Normal Range of Motion, Non Tender, No Calf Tenderness, No Pedal Edema Neurologic/Psychiatric: Alert, Oriented x3, No Motor/Sensory Deficits, Normal Mood/Affect, Motor Weakness (Generalized 3/5 all extremities) Skin: Normal Color, Warm/Dry Lymphatic: No Adenopathy Results/Procedures Lab Patient resulted labs reviewed. FIM Transfers Therapy Code Descriptions/Definitions Functional [place] Measure: 0=Not Assessed/NA 4=Minimal Assistance 1=Total Assistance 5=Supervision or Setup 2=Maximal Assistance 6=Modified [place] 3=Moderate Assistance 7=Complete IndependenceSCALE: Activities may be completed with or without assistive devices. 2-Ackpnntgkt-bfhrmar completes the activity by him/herself with no assistance from a helper. 5-Set-up or Clean-up Assistance-helper sets up or cleans up; patient completes activity. [place] assists only prior to or following the activity. 4-Supervision or Touching Assistance-helper provides verbal cues and/or touching/steadying and/or contact guard assistance as patient completes activity. Assistance may be provided throughout the activity or intermittently. 3-Partial/Moderate Assistance-helper does LESS THAN HALF the effort. [place] lifts, holds or supports trunk or limbs, but provides less than half the effort. 2-Substantial/Maximal Assistance-helper does MORE THAN HALF the effort. [place] lifts or holds trunk or limbs and provides more than half the effort. 3-Xeblmdgkz-cbqrmb does ALL the effort. Patient does none of the effort to complete the activity. Or, the assistance of 2 or more helpers is required for the patient to complete the activity. If activity was not attempted, code reason: 7-Patient Refused. 9-Not Applicable-not attempted and the patient did not perform the activity before the current illness, exacerbation or injury. 10-Not Attempted due to Environmental Limitations-(lack of equipment, weather restraints, etc.). 88-Not Attempted due to Medical Conditions or Safety Concerns. Roll Left to Right (QC): 4 Sit to Lying (QC): 4 Sit to Stand (QC): 4 Chair/Rje-lw-Sevlh Xfer(QC): 4 Car Transfer (QC): 3 Gait Training Does the Patient Walk?: Yes Walk 10 feet (QC): 4 Walk 50 ft with 2 Turns(QC): 4 Walk 150 ft (QC): 4 Walking 10ft/uneven surface-QC: 4 Gait Assistive Device: FWW Wheelchair Training Does the Pt Use a Wheelchair?: No Wheel 50 ft with 2 turns (QC): 9 Wheel 150 ft (QC): 9 Stair Training 1 Step (curb) (QC): 3 4 Steps (QC): 88 12 Steps (QC): 88 Balance Picking up an Object (QC): 88 ADL-Treatment Eating (QC): 6 (Per pt report, independent with lunch) Oral Hygiene (QC): 4 (SBA standing at sink) Shower/Bathe Self (QC): 4 (CGA, pt completed sponge bath able to wash/dry all parts.) Upper Body Dressing (QC): 3 (Min A with heat treat puller shirt due to it catching on LifeVest in back) Lower Body Dressing (QC): 4 (SBA) On/Off Footwear (QC): 5 (set up assist) Toileting Hygiene (QC): 4 (CGA) Assessment/Plan Assessment and Plan Assess & Plan/Chief Complaint Assessment: Critical illness myopathy Severe cardiomyopathy ejection fraction of 25% requiring LifeVest consulted cardiology CAD previous bypass on 12/16/2020 at Diabetes mellitus Generalized weakness Hypertension Hyperlipidemia Frail status Acute blood loss anemia Status post emergent embolectomy of the right leg post bypass surgery Previous cardiogenic shock Plan: Aggressive therapy Monitor labs closely Accu-Chek twice daily Home meds 12/26/2020: Supportive care Monitor oxygen level Aggressive treatment to regain function 12/27/2020: Appreciate cardiology consultation Monitor closely Accu-Cheks twice daily only (1) Congestive heart failure Status: Acute (2) NSTEMI (non-ST elevated myocardial infarction) (3) Essential (primary) hypertension (4) HLD (hyperlipidemia) (5) Non-insulin dependent type 2 diabetes mellitus OTTO SHI DO Dec 27, 2020 06:19
[2020-12-27 07:51] VITALS: BP 109/55
[2020-12-27] MEDS: ASPIRIN 81 MG CHEW (CHILDREN'S ASA) PO SCH (08:18)
[2020-12-27] MEDS: FUROSEMIDE 40 MG (LASIX) TAB PO SCH (08:19)
[2020-12-27] MEDS: metFORMIN 500 MG (GLUCOPHAGE) TAB PO SCH ×2 (08:19→18:13)
[2020-12-27] MEDS: polyethylene glycoL POWDER 17 GM (MIRALAX) PACK PO SCH ×2 (08:19→20:57)
[2020-12-27] MEDS: SPIRONOLACTONE 25 MG (ALDACTONE) TAB PO SCH (08:19)
[2020-12-27] MEDS: CLOPIDOGREL 75 MG (PLAVIX) TABLET PO SCH (08:19)
[2020-12-27] MEDS: LOSARTAN 25 MG (COZAAR) TAB PO SCH (08:19)
[2020-12-27] MEDS: ALLOPURINOL 100 MG (ZYLOPRIM) TAB PO SCH (08:19)
[2020-12-27] MEDS: DOCUSATE SODIUM 100 MG (COLACE) CAP PO SCH ×2 (08:20→20:57)
[2020-12-27] MEDS: SENNA W/DOCUSATE (SENOKOT S) TABLET PO SCH ×2 (08:20→20:57)
--- NOTE | 2020-12-27 09:11 | Physical Therapy Daily Note ---
PT Daily Note-Current Subjective Pt sitting up in chair upon arrival to room, agreeable to therapy treatment at this time. No complaints voiced. Pt anxious to return home Appearance Following session, pt up in chair with BLE elevated, call light and tray within reach. All needs met Mental Status Patient Orientation: Person, Place, Situation Transfers SCALE: Activities may be completed with or without assistive devices. 1-Tisjkqljqg-lkuajbw completes the activity by him/herself with no assistance from a helper. 5-Set-up or Clean-up Assistance-helper sets up or cleans up; patient completes activity. [place] assists only prior to or following the activity. 4-Supervision or Touching Assistance-helper provides verbal cues and/or touching/steadying and/or contact guard assistance as patient completes activity. Assistance may be provided throughout the activity or intermittently. 3-Partial/Moderate Assistance-helper does LESS THAN HALF the effort. [place] lifts, holds or supports trunk or limbs, but provides less than half the effort. 2-Substantial/Maximal Assistance-helper does MORE THAN HALF the effort. [place] lifts or holds trunk or limbs and provides more than half the effort. 0-Mnrxjrrnn-ytfqei does ALL the effort. Patient does none of the effort to complete the activity. Or, the assistance of 2 or more helpers is required for the patient to complete the activity. If activity was not attempted, code reason: 7-Patient Refused. 9-Not Applicable-not attempted and the patient did not perform the activity before the current illness, exacerbation or injury. 10-Not Attempted due to Environmental Limitations-(lack of equipment, weather restraints, etc.). 88-Not Attempted due to Medical Conditions or Safety Concerns. Sit to Stand (QC): 4 Weight Bearing Sternal precautions. Gait Training Distance: 3 x 150' Walk 150 ft (QC): 4 Gait Assistive Device: FWW Pt ambulates with slow, steady gait pattern. Occasional cues for upright posture, SBA throughout ambulation Stair Training #of Steps: 4 4 Steps (QC): 3 Stairs: Pattern: Step to Able to ascend/descend steps with step to pattern, take small standing rest break at top of stair prior to descent. Exercises Seated Therapy Exercises: Long arc quads, Hip flexion Seated Reps: 20 Standing: Heel/toe raises, Marching, Mini squats Standing Reps: 15 Treatments Gait, seated and standing exercises to increase endurance, strength and functional mobility Assessment Current Status: Good Progress Pt tolerated well, she fatigues quickly with ambulation, recovers quickly with seated rest breaks PT Short Term Goals Short Term Goals Time Frame: Jan 01, 2021 Roll Left & Right: 6 Sit to lyin Lying to sitting on side of be: 6 Sit to stand: 4 Chair/iwn-qw-ljzzk transfer: 4 Toilet transfer: 4 Car transfer: 4 Walk 150 feet: 4 PT Senior Living Goals Coating And Embossing Unit Operator Goals PT Senior Living Goals Time Frame: Jan 10, 2021 Roll Left & Right (QC): 6 Sit to Lying (QC): 6 Lying-Sitting on Side/Bed(QC): 6 Sit to Stand (QC): 6 Chair/Dtb-he-Ioxrl Xfer(QC): 6 Toilet Transfer (QC): 6 Car Transfer (QC): 6 Does the Patient Walk: Yes Walk 10 feet (QC): 6 Walk 50ft with 2 Turns (QC): 6 Walk 150 ft (QC): 6 Walking 10ft on Uneven Surface: 6 1 Step (curb) (QC): 6 4 Steps (QC): 6 12 Steps (QC): 4 Picking up an Object (QC): 4 Wheel 50 feet with 2 turns (QC: 9 Wheel 150 feet: 9 PT Plan Problem List Problem List: Activity Tolerance, Functional Strength, Safety, Balance, Gait, Transfer, Bed Mobility, ROM Treatment/Plan Treatment Plan: Continue Plan of Care Treatment Plan: Bed Mobility, Education, Functional Activity [place], Functional Strength, Group Therapy, Gait, Safety, Therapeutic Exercise, Transfers Treatment Duration: Jan 10, 2021 Frequency: At least 5 of 7 days/Wk (IRF) Estimated Hrs Per Day: 1.5 hours per day Patient and/or Family Agrees t: Yes Time/GCodes Time In: 800 Time Out: 900 Total Billed Treatment Time: 60 Total Billed Treatment 1 visit EX (25') GT (35') GERSON STEARNS PT Dec 27, 2020 09:11
--- NOTE | 2020-12-27 09:55 | Occupational Ther Daily Note ---
OT Current Status-Daily Note Subjective Pt seated in recliner, states she is tired after PT. Mental Status/Objective Patient Orientation: Person, Place, Time, Situation Attachments: Other-See Comments (LifeVest) ADL-Treatment Therapy Code Descriptions/Definitions Functional [place] Measure: 0=Not Assessed/NA 4=Minimal Assistance 1=Total Assistance 5=Supervision or Setup 2=Maximal Assistance 6=Modified [place] 3=Moderate Assistance 7=Complete IndependenceSCALE: Activities may be completed with or without assistive devices. 4-Zvefptdmxu-quizqad completes the activity by him/herself with no assistance from a helper. 5-Set-up or Clean-up Assistance-helper sets up or cleans up; patient completes activity. [place] assists only prior to or following the activity. 4-Supervision or Touching Assistance-helper provides verbal cues and/or touching/steadying and/or contact guard assistance as patient completes activity. Assistance may be provided throughout the activity or intermittently. 3-Partial/Moderate Assistance-helper does LESS THAN HALF the effort. [place] lifts, holds or supports trunk or limbs, but provides less than half the effort. 2-Substantial/Maximal Assistance-helper does MORE THAN HALF the effort. [place] lifts or holds trunk or limbs and provides more than half the effort. 5-Qbhvglyuh-ivhtkm does ALL the effort. Patient does none of the effort to complete the activity. Or, the assistance of 2 or more helpers is required for the patient to complete the activity. If activity was not attempted, code reason: 7-Patient Refused. 9-Not Applicable-not attempted and the patient did not perform the activity before the current illness, exacerbation or injury. 10-Not Attempted due to Environmental Limitations-(lack of equipment, weather restraints, etc.). 88-Not Attempted due to Medical Conditions or Safety Concerns. Shower/Bathe Self (QC): 4 (Supervision) Upper Body Dressing (QC): 5 (set up assist, pt able to don/doff bone puller shirt and LifeVest) Lower Body Dressing (QC): 4 (supervision in stand, pt able to don/doff pants and underwear) On/Off Footwear: 5 (set up with slip on shoes.) Other Treatment Pt seated in recliner, used FWW to perform functional mobility into bathroom and onto SC. Pt doffed clothes, completed shower, then donned LifeVest and clothes. Pt used FWW to return to recliner, taking seated rest break. Pt removed beads from moderate resistance theraputty in order to increase BUE fine motor strength, activity tolerance, and coordination. Post tx, pt seated in recliner, call light in reach and all needs met. 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 2=Patient will verbalize/demonstrate understanding of assistive devices/modifications for ADL. 3=Patient will improve strength/tolerance for activity to enable patient to perform ADL's. OT Education/Plan Problem List/Assessment Assessment: Decreased Activ Tolerance, Decreased UE Strength, Impaired I ADL's, Impaired Self-Care Skills Discharge Recommendations Plan/Recommendations: Continue POC Treatment Plan/Plan of Care Patient would benefit from OT for education, treatment and training to promote independence in ADL's, mobility, safety and/or upper extremity function for ADL's. Plan of Care: ADL Retraining, Functional Mobility, Group Exercise/Act as Ind, UE Funct Exercise/Act Treatment Duration: Jan 17, 2021 Frequency: At least 5 of 7 days/Wk (IRF) Estimated Hrs Per Day: 1.5 hours per day Rehab Potential: Good Time/GCodes Start Time: 09:00 Stop Time: 10:00 Total Time Billed (hr/min): 60 Billed Treatment Time 1, ADL 3 (45'), FA (15') ZUNILDA RAMEY OT Dec 27, 2020 09:55
--- NOTE | 2020-12-27 12:56 | Progress Note - Cardiology ---
Cardiology SOAP Progress Note Subjective: Sitting up in recliner at the bedside States tired after therapy today No c/o CP, palpitations, SOB, syncope or near syncope Objective: I&O/Vital Signs 12/31/20 12/31/20 07:59 09:28 Temp 36.4 Pulse 92 Resp 16 B/P (MAP) 103/54 (70) Pulse Ox 97 O2 Delivery Room Air Room Air Constitutional: AAO x 3, well-developed, other (thin) Respiratory: No accessory muscle use, No respiratory distress; chest expansion is symmetric, chest is bilaterally symmetric, lungs clear to auscultation Cardiovascular: regular rate-rhythm; No JVD; S1 and S2 Gastrointestional: No tender; soft, round, audible bowel sounds Extremities: no lower extremity edema bilateral Neurologic/Psychiatric: grossly intact (moves all extremities) Skin: other (Mid-line ACW post surgical incision; edges approx; no redness, no swelling, no drainage) Results/Procedures: Labs Laboratory Tests 12/30/20 17:03: Glucometer 156H 12/30/20 21:22: Glucometer 213H 12/31/20 05:24: Glucometer 144H A/P: Assessment: CAD: - Severe multivessel coronary artery disease involving ostial LAD, ulcerated plaque with haziness in the proximal/ostial circumflex artery and occluded right coronary artery with collaterals from the left per cardiac cath of 12-07-[address] Toney - S/P CABG x 2 vessel (COFFMAN to LAD; SVG to OM1) on 12-16-20 at [facility] by Dr. Patel - complicated hospitalization at [facility] - acute right lower extremity arterial embolism post IABP removal, requiring emergent embolectomy (successful spiritism of blood flow) ICM: - LVEF 30% per cardiac cath of 12-07-20 - LVEF 25% per echocardiogram of 12-20-20 at [facility] post CABG - Life Vest in place - ARB, BB, aldactone - continue HTN - somewhat low BP, asymptomatic HLD - statin tx DM 2 - Management per medical services Plan: Multiple questions regarding Life Vest - Yani Oseguera, was contacted yes terday and will be speaking with pt/family Monitor lab from time to time Replace electrolytes as indicated Continue current med regimen LISSETH DUENAS Dec 27, 2020 12:56
--- NOTE | 2020-12-27 14:44 | Therapy Group Daily Note ---
Therapy Daily Group Note Patient Education Topic Other List Below (memory, ARU description/expectations) Exercises LE Seated Exercise, UE Exercise Session Ratio (pt:therapist): 8:2 Goal of Session: Education on ARU Expectations, Memory Strategies, UE/LE Strengthing Goal Met for this Session: Yes Pt Benefit of Group: Contributions to Others, F/U Use of Strategies @Home, Increased Functional Safety, Increased Functional Strength, Improved Cognition, Recognition of Peers, Socialization Other/Notes Pt ambulated using FWW to [facility] for OT/PT group. Group consisted of introductions (name, place living, memory of historical event), socialization, ARU description/expectation, seated B UE/LE exercises and memory strategies/activity. Pt introduced self appropriately and actively listened to peers. Pt participated in B UE/LE seated exercises and tolerated well. Pt acknowledged understanding of educational topics by giving own personal strategies and experiences. After therapy, pt lying in bed with call light/phone in reach. Start Time: 13:00 Stop Time: 14:00 Total Billed Treatment Time: 60 Total Billed Treatment 1-GRP NATHAN VALLADARES Dec 27, 2020 14:44
--- NOTE | 2020-12-27 16:06 | Progress Note - Cardiology ---
Cardiology SOAP Progress Note Subjective: No cp or palp or syncope or shortness of breath Gen weakness and malaise No n/v/d Objective: I&O/Vital Signs 12/27/20 12/27/20 07:51 09:01 Temp 36.0 Pulse 90 Resp 22 B/P (MAP) 109/55 (73) Pulse Ox 94 O2 Delivery Room Air Room Air Constitutional: AAO x 3, well-developed, other (thin) Respiratory: No accessory muscle use, No respiratory distress; chest expansion is symmetric, chest is bilaterally symmetric, lungs clear to auscultation Cardiovascular: regular rate-rhythm; No JVD; S1 and S2 Gastrointestional: No tender; soft, round, audible bowel sounds Extremities: no lower extremity edema bilateral Neurologic/Psychiatric: grossly intact (moves all extremities) Skin: other (Mid-line ACW post surgical incision; edges approx; no redness, no swelling, no drainage) Results/Procedures: Labs Laboratory Tests 12/26/20 16:22: Glucometer 129H 12/26/20 20:35: Glucometer 122H 12/27/20 05:28: Glucometer 120H Laboratory Tests 12/26/20 06:14 A/P: Assessment: CAD: - Severe multivessel coronary artery disease involving ostial LAD, ulcerated p laque with haziness in the proximal/ostial circumflex artery and occluded right coronary artery with collaterals from the left per cardiac cath of 12-07-[address] Toney - S/P CABG x 2 vessel (COFFMAN to LAD; SVG to OM1) on 12-16-20 at [facility] by Dr. Patel - complicated hospitalization at [facility] - acute right lower extremity arterial embolism post IABP removal, requiring emergent embolectomy (successful rest oration of blood flow) ICM: - LVEF 30% per cardiac cath of 12-07-20 - LVEF 25% per echocardiogram of 12-20-20 at [facility] post CABG - Life Vest in place HTN - somewhat low BP, asymptomatic HLD treated with statin tx DM 2 - Management per medical services Plan: ARB, BB, aldactone - continue Monitor lab from time to time Replace electrolytes as indicated KARSON SMITH MD [facility] Dec 27, 2020 16:06
[2020-12-27 20:00] VITALS: BP 107/55
[2020-12-27] MEDS: eZETimibe 10 MG (ZETIA) TABLET PO SCH (21:56)
[2020-12-28] MEDS: GABAPENTIN 300 MG (NEURONTIN) CAP PO SCH ×3 (07:08→22:16)
[2020-12-28] MEDS: MULTIVIT W/MINERALS TAB (THERAGRAN M) PO SCH (07:08)
[2020-12-28] MEDS: KCL 20 MEQ TAB (K-DUR) PO SCH (07:08)
[2020-12-28 07:30] VITALS: BP 106/57
--- NOTE | 2020-12-28 07:37 | PM&R Progress Note ---
Subjective HPI/CC On Admission Date Seen by Provider: Dec 28, 2020 Time Seen by Provider: 07:00 Subjective/Events-last exam 12/28/2020: Pt doing pretty well Metformin will be discontinued due to diarrhea Checked meds and labs No falls Progressing nicely 12/27/2020: Pt doing very well Accuchecks BID will be changed for QID Overall doing very well Bowels are functioning well 12/26/2020: Pt doing pretty well Cardiology consulted Hgb 11.0 Bowels moving pretty well Checked meds and labs No falls Overall slept very well last night Review of Systems General: Fatigue Neurological: Weakness Objective Exam Vital Signs Vital Signs Date Time Temp Pulse Resp B/P (MAP) Pulse Ox O2 Delivery O2 Flow Rate FiO2 12/28/20 21:00 Room Air 12/28/20 20:00 36.7 104 20 116/64 (81) 96 Capillary Refill : General Appearance: No Apparent Distress, WD/WN, Chronically ill, Thin HEENT: PERRL/EOMI, Normal ENT Inspection, Pharynx Normal Neck: Full Range of Motion, Normal Inspection, Non Tender, Supple, Carotid Bruit Respiratory: Chest Non Tender, Lungs Clear, Normal Breath Sounds, No Accessory Muscle Use, No Respiratory Distress Cardiovascular: Regular Rate, Rhythm, No Edema, No Gallop, No JVD, No Murmur, Normal Peripheral Pulses Gastrointestinal: Normal Bowel Sounds, No Organomegaly, No Pulsatile Mass, Non Tender, Soft Back: Normal Inspection, No CVA Tenderness, No Vertebral Tenderness Extremity: Normal Capillary Refill, Normal Inspection, Normal Range of Motion, Non Tender, No Calf Tenderness, No Pedal Edema Neurologic/Psychiatric: Alert, Oriented x3, No Motor/Sensory Deficits, Normal Mood/Affect, Motor Weakness (Generalized 3/5 all extremities) Skin: Normal Color, Warm/Dry Lymphatic: No Adenopathy Results/Procedures Lab Patient resulted labs reviewed. FIM Transfers Therapy Code Descriptions/Definitions Functional [place] Measure: 0=Not Assessed/NA 4=Minimal Assistance 1=Total Assistance 5=Supervision or Setup 2=Maximal Assistance 6=Modified [place] 3=Moderate Assistance 7=Complete IndependenceSCALE: Activities may be completed with or without assistive devices. 2-Ezwkipxuys-gwtfeyn completes the activity by him/herself with no assistance from a helper. 5-Set-up or Clean-up Assistance-helper sets up or cleans up; patient completes activity. [place] assists only prior to or following the activity. 4-Supervision or Touching Assistance-helper provides verbal cues and/or touching/steadying and/or contact guard assistance as patient completes activity. Assistance may be provided throughout the activity or intermittently. 3-Partial/Moderate Assistance-helper does LESS THAN HALF the effort. [place] lifts, holds or supports trunk or limbs, but provides less than half the effort. 2-Substantial/Maximal Assistance-helper does MORE THAN HALF the effort. [place] lifts or holds trunk or limbs and provides more than half the effort. 2-Xywgypigp-kvmttu does ALL the effort. Patient does none of the effort to complete the activity. Or, the assistance of 2 or more helpers is required for the patient to complete the activity. If activity was not attempted, code reason: 7-Patient Refused. 9-Not Applicable-not attempted and the patient did not perform the activity before the current illness, exacerbation or injury. 10-Not Attempted due to Environmental Limitations-(lack of equipment, weather restraints, etc.). 88-Not Attempted due to Medical Conditions or Safety Concerns. Roll Left to Right (QC): 4 Sit to Lying (QC): 4 Sit to Stand (QC): 4 Chair/Ufj-hm-Alqxk Xfer(QC): 4 Car Transfer (QC): 3 Gait Training Does the Patient Walk?: Yes Distance: 3 x 150' Walk 10 feet (QC): 4 Walk 50 ft with 2 Turns(QC): 4 Walk 150 ft (QC): 4 Walking 10ft/uneven surface-QC: 4 Gait Assistive Device: FWW Wheelchair Training Does the Pt Use a Wheelchair?: No Wheel 50 ft with 2 turns (QC): 9 Wheel 150 ft (QC): 9 Stair Training #of Steps: 4 1 Step (curb) (QC): 3 4 Steps (QC): 3 12 Steps (QC): 88 Stairs: Pattern: Step to Balance Picking up an Object (QC): 88 ADL-Treatment Eating (QC): 6 (Per pt report, independent with lunch) Oral Hygiene (QC): 4 (SBA standing at sink) Shower/Bathe Self (QC): 4 (Supervision) Upper Body Dressing (QC): 5 (set up assist, pt able to don/doff caul fat puller shirt and LifeVest) Lower Body Dressing (QC): 4 (supervision in stand, pt able to don/doff pants and underwear) On/Off Footwear (QC): 5 (set up with slip on shoes.) Toileting Hygiene (QC): 4 (CGA) Assessment/Plan Assessment and Plan Assess & Plan/Chief Complaint Assessment: Critical illness myopathy Severe cardiomyopathy ejection fraction of 25% requiring LifeVest consulted cardiology CAD previous bypass on 12/16/2020 at Diabetes mellitus Generalized weakness Hypertension Hyperlipidemia Frail status Acute blood loss anemia Status post emergent embolectomy of the right leg post bypass surgery Previous cardiogenic shock Plan: Aggressive therapy Monitor labs closely Accu-Chek twice daily Home meds 12/26/2020: Supportive care Monitor oxygen level Aggressive treatment to regain function 12/27/2020: Appreciate cardiology consultation Monitor closely Accu-Cheks twice daily only 12/28/2020: Hold Metformin due to diarrhea Hold Tradjenta (1) Congestive heart failure Status: Acute (2) NSTEMI (non-ST elevated myocardial infarction) (3) Essential (primary) hypertension (4) HLD (hyperlipidemia) (5) Non-insulin dependent type 2 diabetes mellitus OTTO SHI DO Dec 28, 2020 07:37
[2020-12-28] MEDS: CLOPIDOGREL 75 MG (PLAVIX) TABLET PO SCH (08:40)
[2020-12-28] MEDS: ASPIRIN 81 MG CHEW (CHILDREN'S ASA) PO SCH (08:40)
[2020-12-28] MEDS: SENNA W/DOCUSATE (SENOKOT S) TABLET PO SCH ×2 (08:40→22:34)
[2020-12-28] MEDS: ALLOPURINOL 100 MG (ZYLOPRIM) TAB PO SCH (08:40)
[2020-12-28] MEDS: SPIRONOLACTONE 25 MG (ALDACTONE) TAB PO SCH (08:40)
[2020-12-28] MEDS: polyethylene glycoL POWDER 17 GM (MIRALAX) PACK PO SCH ×2 (08:41→22:33)
[2020-12-28] MEDS: DOCUSATE SODIUM 100 MG (COLACE) CAP PO SCH ×2 (08:41→22:33)
[2020-12-28] MEDS: FUROSEMIDE 40 MG (LASIX) TAB PO SCH (08:42)
[2020-12-28 08:45] VITALS: BP 91/55
[2020-12-28] MEDS: LOSARTAN 25 MG (COZAAR) TAB PO SCH (08:45)
[2020-12-28 09:43] VITALS: BP 108/56
--- NOTE | 2020-12-28 11:46 | Physical Therapy Progress Note ---
Therapy Progress Note Pt visited x 2 this am. BP low per nursing upon 1st visit so no treatment rendered. Returned at 11:40am -Nursing recommends hold on treatment as pt is awaiting doppler. No treatment rendered at this time. Will resume as pt is cleared medically. TEJA LOMBARDI CPTA Dec 28, 2020 11:46
--- NOTE | 2020-12-28 12:32 | Diagnostic Imaging Report ---
Right lower extremity arterial Doppler. INDICATION: No right-sided pedal pulses. FINDINGS: There are triphasic waveforms demonstrated within the common femoral artery within the proximal and mid superficial femoral artery. Biphasic waveforms within the distal superficial femoral artery and the popliteal. Within the calf, there are monophasic waveforms within the posterior tibial artery. There are biphasic waveforms within the anterior tibial artery within the calf and there are monophasic waveforms demonstrated at the dorsalis pedis where velocities are measured at 28 cm/s. IMPRESSION: 1. No findings of high-grade arterial stenosis or thrombosis within the right lower extremity. The presence of calf biphasic and monophasic waveforms are compatible with small vessel peripheral arterial disease. Dictated by: Dictated on workstation # [id number]
[2020-12-28 20:00] VITALS: BP 116/64
[2020-12-28] MEDS: ROSUVASTATIN 10 MG (CRESTOR) TABLET PO SCH (22:17)
[2020-12-28] MEDS: eZETimibe 10 MG (ZETIA) TABLET PO SCH (22:17)
[2020-12-29] MEDS: KCL 20 MEQ TAB (K-DUR) PO SCH (05:48)
[2020-12-29] MEDS: MULTIVIT W/MINERALS TAB (THERAGRAN M) PO SCH (05:48)
[2020-12-29] MEDS: ACETAMINOPHEN 325 MG TABLET PO PRN ×2 (05:48→20:36)
[2020-12-29] MEDS: GABAPENTIN 300 MG (NEURONTIN) CAP PO SCH ×3 (05:48→20:32)
--- NOTE | 2020-12-29 06:58 | PM&R Progress Note ---
Subjective HPI/CC On Admission Date Seen by Provider: Dec 29, 2020 Time Seen by Provider: 13:00 Subjective/Events-last exam 12/29/2020: Patient doing really well No more loose stools Blood sugars monitored No pain 12/28/2020: Pt doing pretty well Metformin will be discontinued due to diarrhea Checked meds and labs No falls Progressing nicely 12/27/2020: Pt doing very well Accuchecks BID will be changed for QID Overall doing very well Bowels are functioning well 12/26/2020: Pt doing pretty well Cardiology consulted Hgb 11.0 Bowels moving pretty well Checked meds and labs No falls Overall slept very well last night Review of Systems General: Fatigue, Malaise Pulmonary: Dyspnea Objective Exam Vital Signs Vital Signs Date Time Temp Pulse Resp B/P (MAP) Pulse Ox O2 Delivery O2 Flow Rate FiO2 12/29/20 21:00 Room Air 12/29/20 20:00 37.0 103 18 103/54 (70) 95 Capillary Refill : General Appearance: No Apparent Distress, WD/WN, Chronically ill, Thin HEENT: PERRL/EOMI, Normal ENT Inspection, Pharynx Normal Neck: Full Range of Motion, Normal Inspection, Non Tender, Supple, Carotid Bruit Respiratory: Chest Non Tender, Lungs Clear, Normal Breath Sounds, No Accessory Muscle Use, No Respiratory Distress Cardiovascular: Regular Rate, Rhythm, No Edema, No Gallop, No JVD, No Murmur, Normal Peripheral Pulses Gastrointestinal: Normal Bowel Sounds, No Organomegaly, No Pulsatile Mass, Non Tender, Soft Back: Normal Inspection, No CVA Tenderness, No Vertebral Tenderness Extremity: Normal Capillary Refill, Normal Inspection, Normal Range of Motion, Non Tender, No Calf Tenderness, No Pedal Edema Neurologic/Psychiatric: Alert, Oriented x3, No Motor/Sensory Deficits, Normal Mood/Affect, Motor Weakness (Generalized 3/5 all extremities) Skin: Normal Color, Warm/Dry Lymphatic: No Adenopathy Results/Procedures Lab Patient resulted labs reviewed. FIM Transfers Therapy Code Descriptions/Definitions Functional [place] Measure: 0=Not Assessed/NA 4=Minimal Assistance 1=Total Assistance 5=Supervision or Setup 2=Maximal Assistance 6=Modified [place] 3=Moderate Assistance 7=Complete IndependenceSCALE: Activities may be completed with or without assistive devices. 2-Rvsuxinfqz-dlpnxeb completes the activity by him/herself with no assistance from a helper. 5-Set-up or Clean-up Assistance-helper sets up or cleans up; patient completes activity. [place] assists only prior to or following the activity. 4-Supervision or Touching Assistance-helper provides verbal cues and/or touching/steadying and/or contact guard assistance as patient completes activit y. Assistance may be provided throughout the activity or intermittently. 3-Partial/Moderate Assistance-helper does LESS THAN HALF the effort. [place] lifts, holds or supports trunk or limbs, but provides less than half the effort. 2-Substantial/Maximal Assistance-helper does MORE THAN HALF the effort. [place] lifts or holds trunk or limbs and provides more than half the effort. 3-Voeagtpqv-bnrolt does ALL the effort. Patient does none of the effort to complete the activity. Or, the assistance of 2 or more helpers is required for the patient to complete the activity. If activity was not attempted, code reason: 7-Patient Refused. 9-Not Applicable-not attempted and the patient did not perform the activity before the current illness, exacerbation or injury. 10-Not Attempted due to Environmental Limitations-(lack of equipment, weather restraints, etc.). 88-Not Attempted due to Medical Conditions or Safety Concerns. Roll Left to Right (QC): 4 Sit to Lying (QC): 4 Sit to Stand (QC): 4 Chair/Cjg-oe-Hgero Xfer(QC): 4 Car Transfer (QC): 3 Gait Training Does the Patient Walk?: Yes Distance: 3 x 150' Walk 10 feet (QC): 4 Walk 50 ft with 2 Turns(QC): 4 Walk 150 ft (QC): 4 Walking 10ft/uneven surface-QC: 4 Gait Assistive Device: FWW Wheelchair Training Does the Pt Use a Wheelchair?: No Wheel 50 ft with 2 turns (QC): 9 Wheel 150 ft (QC): 9 Stair Training #of Steps: 4 1 Step (curb) (QC): 3 4 Steps (QC): 3 12 Steps (QC): 88 Stairs: Pattern: Step to Balance Picking up an Object (QC): 88 ADL-Treatment Eating (QC): 6 (Per pt report, independent with lunch) Oral Hygiene (QC): 4 (SBA standing at sink) Shower/Bathe Self (QC): 4 (Supervision) Upper Body Dressing (QC): 5 (set up assist, pt able to don/doff order puller shirt and LifeVest) Lower Body Dressing (QC): 4 (supervision in stand, pt able to don/doff pants and underwear) On/Off Footwear (QC): 5 (set up with slip on shoes.) Toileting Hygiene (QC): 4 (CGA) Assessment/Plan Assessment and Plan Assess & Plan/Chief Complaint Assessment: Critical illness myopathy Severe cardiomyopathy ejection fraction of 25% requiring LifeVest consulted cardiology CAD previous bypass on 12/16/2020 at Diabetes mellitus Generalized weakness Hypertension Hyperlipidemia Frail status Acute blood loss anemia Status post emergent embolectomy of the right leg post bypass surgery Previous cardiogenic shock Plan: Aggressive therapy Monitor labs closely Accu-Chek twice daily Home meds 12/26/2020: Supportive care Monitor oxygen level Aggressive treatment to regain function 12/27/2020: Appreciate cardiology consultation Monitor closely Accu-Cheks twice daily only 12/28/2020: Hold Metformin due to diarrhea Hold Tradjenta 12/29/2020: Improved bowel routine Check meds and labs (1) Congestive heart failure Status: Acute (2) NSTEMI (non-ST elevated myocardial infarction) (3) Essential (primary) hypertension (4) HLD (hyperlipidemia) (5) Non-insulin dependent type 2 diabetes mellitus OTTO SHI DO Dec 29, 2020 06:58
[2020-12-29 08:38] VITALS: BP 109/63
[2020-12-29 08:41] VITALS: BP 104/57
[2020-12-29] MEDS: DOCUSATE SODIUM 100 MG (COLACE) CAP PO SCH ×2 (08:45→21:00)
[2020-12-29] MEDS: SENNA W/DOCUSATE (SENOKOT S) TABLET PO SCH ×2 (08:45→21:00)
[2020-12-29] MEDS: polyethylene glycoL POWDER 17 GM (MIRALAX) PACK PO SCH ×2 (08:45→21:00)
[2020-12-29 10:47] VITALS: BP 125/60
[2020-12-29] MEDS: CLOPIDOGREL 75 MG (PLAVIX) TABLET PO SCH (10:58)
[2020-12-29] MEDS: ASPIRIN 81 MG CHEW (CHILDREN'S ASA) PO SCH (10:58)
[2020-12-29] MEDS: ALLOPURINOL 100 MG (ZYLOPRIM) TAB PO SCH (10:58)
[2020-12-29] MEDS: LOSARTAN 25 MG (COZAAR) TAB PO SCH (10:58)
[2020-12-29] MEDS: FUROSEMIDE 40 MG (LASIX) TAB PO SCH (10:58)
[2020-12-29] MEDS: SPIRONOLACTONE 25 MG (ALDACTONE) TAB PO SCH (10:59)
[2020-12-29 16:41] VITALS: BP 117/63
[2020-12-29 20:00] VITALS: BP 103/54
[2020-12-29] MEDS: eZETimibe 10 MG (ZETIA) TABLET PO SCH (20:31)
[2020-12-30 06:22] LABS: BASOPHILS # (AUTO) 0.1 10^3/uL (0.0-0.1); BASOPHILS % (AUTO) 1 % (0-10); EOSINOPHILS # (AUTO) 0.3 10^3/uL (0.0-0.3); EOSINOPHILS % (AUTO) 3 % (0-10); HEMATOCRIT 36 % (35-52); HEMOGLOBIN 11.2 g/dL (11.5-16.0); LYMPHOCYTES # (AUTO) 1.4 10^3/uL (1.0-4.0); LYMPHOCYTES % (AUTO) 13 % (12-44); MEAN CORPUSCULAR HEMOGLOBIN 31 pg (25-34); MEAN CORPUSCULAR HGB CONC 32 g/dL (32-36); MEAN CORPUSCULAR VOLUME 98 fL (80-99); MEAN PLATELET VOLUME 9.5 fL (9.0-12.2); MONOCYTES % (AUTO) 9 % (0-12); NEUTROPHILS % (AUTO) 73 % (42-75); PLATELET COUNT 350 10^3/uL (130-400); WHITE BLOOD COUNT 10.9 10^3/uL (4.3-11.0)
[2020-12-30] MEDS: GABAPENTIN 300 MG (NEURONTIN) CAP PO SCH ×3 (06:22→21:25)
[2020-12-30] MEDS: KCL 20 MEQ TAB (K-DUR) PO SCH (06:22)
[2020-12-30] MEDS: MULTIVIT W/MINERALS TAB (THERAGRAN M) PO SCH (06:22)
--- NOTE | 2020-12-30 06:23 | PM&R Progress Note ---
Subjective HPI/CC On Admission Date Seen by Provider: Dec 30, 2020 Time Seen by Provider: 11:30 Subjective/Events-last exam 12/30/2020: No major issues Bowels moved yesterday Having no new concerns Wants to go home soon 12/29/2020: Patient doing really well No more loose stools Blood sugars monitored No pain 12/28/2020: Pt doing pretty well Metformin will be discontinued due to diarrhea Checked meds and labs No falls Progressing nicely 12/27/2020: Pt doing very well Accuchecks BID will be changed for QID Overall doing very well Bowels are functioning well 12/26/2020: Pt doing pretty well Cardiology consulted Hgb 11.0 Bowels moving pretty well Checked meds and labs No falls Overall slept very well last night Review of Systems General: Fatigue, Malaise Neurological: Weakness Objective Exam Vital Signs Vital Signs Date Time Temp Pulse Resp B/P (MAP) Pulse Ox O2 Delivery O2 Flow Rate FiO2 12/30/20 20:30 Room Air 12/30/20 20:00 36.4 105 18 103/54 (70) 99 Capillary Refill : General Appearance: No Apparent Distress, WD/WN, Chronically ill, Thin HEENT: PERRL/EOMI, Normal ENT Inspection, Pharynx Normal Neck: Full Range of Motion, Normal Inspection, Non Tender, Supple, Carotid Bruit Respiratory: Chest Non Tender, Lungs Clear, Normal Breath Sounds, No Accessory Muscle Use, No Respiratory Distress Cardiovascular: Regular Rate, Rhythm, No Edema, No Gallop, No JVD, No Murmur, Normal Peripheral Pulses Gastrointestinal: Normal Bowel Sounds, No Organomegaly, No Pulsatile Mass, Non Tender, Soft Back: Normal Inspection, No CVA Tenderness, No Vertebral Tenderness Extremity: Normal Capillary Refill, Normal Inspection, Normal Range of Motion, Non Tender, No Calf Tenderness, No Pedal Edema Neurologic/Psychiatric: Alert, Oriented x3, No Motor/Sensory Deficits, Normal Mood/Affect, Motor Weakness (Generalized 3/5 all extremities) Skin: Normal Color, Warm/Dry Lymphatic: No Adenopathy Results/Procedures Lab Laboratory Tests 12/30/20 06:00 Patient resulted labs reviewed. FIM Transfers Therapy Code Descriptions/Definitions Functional [place] Measure: 0=Not Assessed/NA 4=Minimal Assistance 1=Total Assistance 5=Supervision or Setup 2=Maximal Assistance 6=Modified [place] 3=Moderate Assistance 7=Complete IndependenceSCALE: Activities may be completed with or without assistive devices. 3-Yfqbsmcfgj-dnfddcy completes the activity by him/herself with no assistance from a helper. 5-Set-up or Clean-up Assistance-helper sets up or cleans up; patient completes activity. [place] assists only prior to or following the activity. 4-Supervision or Touching Assistance-helper provides verbal cues and/or touching/steadying and/or contact guard assistance as patient completes activity. Assistance may be provided throughout the activity or intermittently. 3-Partial/Moderate Assistance-helper does LESS THAN HALF the effort. [place] lifts, holds or supports trunk or limbs, but provides less than half the effort. 2-Substantial/Maximal Assistance-helper does MORE THAN HALF the effort. [place] lifts or holds trunk or limbs and provides more than half the effort. 7-Rhdbpfkzn-wgfojo does ALL the effort. Patient does none of the effort to comp lete the activity. Or, the assistance of 2 or more helpers is required for the patient to complete the activity. If activity was not attempted, code reason: 7-Patient Refused. 9-Not Applicable-not attempted and the patient did not perform the activity before the current illness, exacerbation or injury. 10-Not Attempted due to Environmental Limitations-(lack of equipment, weather restraints, etc.). 88-Not Attempted due to Medical Conditions or Safety Concerns. Roll Left to Right (QC): 4 Sit to Lying (QC): 4 Sit to Stand (QC): 4 Chair/Bxu-tk-Hawfy Xfer(QC): 4 Car Transfer (QC): 3 Gait Training Does the Patient Walk?: Yes Distance: 3 x 150' Walk 10 feet (QC): 4 Walk 50 ft with 2 Turns(QC): 4 Walk 150 ft (QC): 4 Walking 10ft/uneven surface-QC: 4 Gait Assistive Device: FWW Wheelchair Training Does the Pt Use a Wheelchair?: No Wheel 50 ft with 2 turns (QC): 9 Wheel 150 ft (QC): 9 Stair Training #of Steps: 4 1 Step (curb) (QC): 3 4 Steps (QC): 3 12 Steps (QC): 88 Stairs: Pattern: Step to Balance Picking up an Object (QC): 88 ADL-Treatment Eating (QC): 6 (Per pt report, independent with lunch) Oral Hygiene (QC): 4 (SBA standing at sink) Shower/Bathe Self (QC): 4 (Supervision) Upper Body Dressing (QC): 5 (set up assist, pt able to don/doff rack puller shirt and LifeVest) Lower Body Dressing (QC): 4 (supervision in stand, pt able to don/doff pants and underwear) On/Off Footwear (QC): 5 (set up with slip on shoes.) Toileting Hygiene (QC): 4 (CGA) Assessment/Plan Assessment and Plan Assess & Plan/Chief Complaint Assessment: Critical illness myopathy Severe cardiomyopathy ejection fraction of 25% requiring LifeVest consulted cardiology CAD previous bypass on 12/16/2020 at Diabetes mellitus Generalized weakness Hypertension Hyperlipidemia Frail status Acute blood loss anemia Status post emergent embolectomy of the right leg post bypass surgery Previous cardiogenic shock Plan: Aggressive therapy Monitor labs closely Accu-Chek twice daily Home meds 12/26/2020: Supportive care Monitor oxygen level Aggressive treatment to regain function 12/27/2020: Appreciate cardiology consultation Monitor closely Accu-Cheks twice daily only 12/28/2020: Hold Metformin due to diarrhea Hold Tradjenta 12/29/2020: Improved bowel routine Check meds and labs 12/30/2020: Impressive recovery Monitor closely (1) Congestive heart failure Status: Acute (2) NSTEMI (non-ST elevated myocardial infarction) (3) Essential (primary) hypertension (4) HLD (hyperlipidemia) (5) Non-insulin dependent type 2 diabetes mellitus OTTO SHI DO Dec 30, 2020 06:23
[2020-12-30 06:45] LABS: BILIRUBIN,TOTAL 0.9 MG/DL (0.1-1.0); CALCIUM 10.4 MG/DL (8.5-10.1); CREATININE SERUM 1.18 MG/DL (0.60-1.30); POTASSIUM 4.4 MMOL/L (3.6-5.0); TOTAL PROTEIN 7.7 GM/DL (6.4-8.2)
[2020-12-30 07:35] VITALS: BP 117/56
[2020-12-30] MEDS: CLOPIDOGREL 75 MG (PLAVIX) TABLET PO SCH (08:22)
[2020-12-30] MEDS: ASPIRIN 81 MG CHEW (CHILDREN'S ASA) PO SCH (08:22)
[2020-12-30] MEDS: ALLOPURINOL 100 MG (ZYLOPRIM) TAB PO SCH (08:22)
[2020-12-30] MEDS: DOCUSATE SODIUM 100 MG (COLACE) CAP PO SCH ×2 (08:23→22:59)
[2020-12-30] MEDS: FUROSEMIDE 40 MG (LASIX) TAB PO SCH (08:23)
[2020-12-30] MEDS: SPIRONOLACTONE 25 MG (ALDACTONE) TAB PO SCH (08:23)
[2020-12-30] MEDS: LOSARTAN 25 MG (COZAAR) TAB PO SCH (08:23)
[2020-12-30] MEDS: SENNA W/DOCUSATE (SENOKOT S) TABLET PO SCH ×2 (08:23→22:59)
[2020-12-30] MEDS: polyethylene glycoL POWDER 17 GM (MIRALAX) PACK PO SCH ×2 (08:23→22:59)
--- NOTE | 2020-12-30 08:59 | Physical Therapy Daily Note ---
PT Daily Note-Current Subjective Pt agreeable. Pt denies pain. Pt reports she gets tired easy. Mental Status Patient Orientation: Person, Place, Situation Attachments: Other-See Comments Telemetry Transfers SCALE: Activities may be completed with or without assistive devices. 1-Vvjokzbqeo-izmsbmm completes the activity by him/herself with no assistance from a helper. 5-Set-up or Clean-up Assistance-helper sets up or cleans up; patient completes activity. [place] assists only prior to or following the activity. 4-Supervision or Touching Assistance-helper provides verbal cues and/or touching/steadying and/or contact guard assistance as patient completes activity. Assistance may be provided throughout the activity or intermittently. 3-Partial/Moderate Assistance-helper does LESS THAN HALF the effort. [place] lifts, holds or supports trunk or limbs, but provides less than half the effort. 2-Substantial/Maximal Assistance-helper does MORE THAN HALF the effort. [place] lifts or holds trunk or limbs and provides more than half the effort. 7-Qwogfpzxw-iblpso does ALL the effort. Patient does none of the effort to complete the activity. Or, the assistance of 2 or more helpers is required for the patient to complete the activity. If activity was not attempted, code reason: 7-Patient Refused. 9-Not Applicable-not attempted and the patient did not perform the activity before the current illness, exacerbation or injury. 10-Not Attempted due to Environmental Limitations-(lack of equipment, weather restraints, etc.). 88-Not Attempted due to Medical Conditions or Safety Concerns. Pt mod (I) with transfers all levels. Weight Bearing Sternal precautions. Gait Training Gait Assistive Device: FWW Pt amb with FWW and CGA 1 x 90ft (O2 sat 98% atn HR 111bpm), 110ft (O2 sat 96% and HR 105bpm), 120ft, 150ft (O2 sat 99% and HR 105 afterward). Short seated rest breaks between. Exercises Supine Ex: Ankle pumps, Quad Set, Glut sets, Heel Slides, Short Arc Quads, Hip abd/add Supine Reps: 20 Seated Therapy Exercises: Ankle pumps, Long arc quads, Hip flexion, Hip abd/add Seated Reps: 20 Assessment Current Status: Good Progress Pt fatigues easily. Pt cha very well with frequent rest breaks. Pt in bed with call light and all needs met. PT Short Term Goals Short Term Goals Time Frame: Jan 01, 2021 Roll Left & Right: 6 Sit to lyin Lying to sitting on side of be: 6 Sit to stand: 4 Chair/dgt-bf-tasfy transfer: 4 Toilet transfer: 4 Car transfer: 4 Walk 150 feet: 4 PT Computer Technical Specialist Goals Retirement Goals PT Computer Technical Specialist Goals Time Frame: Jan 10, 2021 Roll Left & Right (QC): 6 Sit to Lying (QC): 6 Lying-Sitting on Side/Bed(QC): 6 Sit to Stand (QC): 6 Chair/Ttn-st-Pxztn Xfer(QC): 6 Toilet Transfer (QC): 6 Car Transfer (QC): 6 Does the Patient Walk: Yes Walk 10 feet (QC): 6 Walk 50ft with 2 Turns (QC): 6 Walk 150 ft (QC): 6 Walking 10ft on Uneven Surface: 6 1 Step (curb) (QC): 6 4 Steps (QC): 6 12 Steps (QC): 4 Picking up an Object (QC): 4 Wheel 50 feet with 2 turns (QC: 9 Wheel 150 feet: 9 PT Plan Treatment/Plan Treatment Plan: Continue Plan of Care Treatment Plan: Bed Mobility, Education, Functional Activity Aydin, Functional Strength, Group Therapy, Gait, Safety, Therapeutic Exercise, Transfers Treatment Duration: Jan 10, 2021 Frequency: At least 5 of 7 days/Wk (IRF) Estimated Hrs Per Day: 1.5 hours per day Patient and/or Family Agrees t: Yes Time/GCodes Time In: 815 Time Out: 900 Total Billed Treatment Time: 45 Total Billed Treatment 1, ther ex 30', gait 15' TEJA LOMBARDI CPTA Dec 30, 2020 08:58
--- NOTE | 2020-12-30 09:18 | Occupational Ther Daily Note ---
OT Current Status-Daily Note Subjective Pt laying in bed, agreeable to OT tx. Pt states she is fatigued after PT tx. Mental Status/Objective Patient Orientation: Person, Place, Time, Situation Attachments: Other-See Comments (LifeVest) ADL-Treatment Therapy Code Descriptions/Definitions Functional [place] Measure: 0=Not Assessed/NA 4=Minimal Assistance 1=Total Assistance 5=Supervision or Setup 2=Maximal Assistance 6=Modified [place] 3=Moderate Assistance 7=Complete IndependenceSCALE: Activities may be completed with or without assistive devices. 8-Ypaaowznjs-uldfquk completes the activity by him/herself with no assistance from a helper. 5-Set-up or Clean-up Assistance-helper sets up or cleans up; patient completes activity. [place] assists only prior to or following the activity. 4-Supervision or Touching Assistance-helper provides verbal cues and/or touching/steadying and/or contact guard assistance as patient completes a ctivity. Assistance may be provided throughout the activity or intermittently. 3-Partial/Moderate Assistance-helper does LESS THAN HALF the effort. [place] lifts, holds or supports trunk or limbs, but provides less than half the effort. 2-Substantial/Maximal Assistance-helper does MORE THAN HALF the effort. [place] lifts or holds trunk or limbs and provides more than half the effort. 3-Tdisgpuvk-whrmbn does ALL the effort. Patient does none of the effort to complete the activity. Or, the assistance of 2 or more helpers is required for the patient to complete the activity. If activity was not attempted, code reason: 7-Patient Refused. 9-Not Applicable-not attempted and the patient did not perform the activity before the current illness, exacerbation or injury. 10-Not Attempted due to Environmental Limitations-(lack of equipment, weather restraints, etc.). 88-Not Attempted due to Medical Conditions or Safety Concerns. Eating (QC): 6 (IND per pt report) Shower/Bathe Self (QC): 5 (set up assist with sponge bath.) Upper Body Dressing (QC): 5 (set up assist) Other Treatment Pt laying in bed, agreeable to OT tx. Pt declines showering, as she is too worn out, but agreeable to sponge bath. Pt completed sponge bath at EOB after set up assistance, able to wash/dry all parts. Pt changed clothes, doffing night gown, then donned shirt and pants. Pt ambulated to bathroom using FWW independently. Pt completed toileting, then stood at sink to brush her teeth. Pt returned to recliner. OT educated pt on energy conservation techniques, she verbalized understanding. Post tx, pt seated in recliner, call light in reach and all needs met. Education OT Patient Education: Correct positioning, Modified ADL techniques, Progress toward Goal/Update tx plan, Purpose of tx/functional activities, Rehab process Teaching Recipient: Patient Teaching Methods: Discussion Response to Teaching: Verbalize Understanding OT Short Term Goals Short Term Goals Time Frame: Jan 03, 2021 Toileting hygiene: 5 Shower/bathe self: 5 Upper body dressin Lower body dressin Putting on/taking off footwear: 5 OT Shelter Goals Shelter Goals Time Frame: Jan 17, 2021 Eating (QC): 6 Oral Hygiene (QC): 6 Toileting Hygiene (QC): 6 Shower/Bathe Self (QC): 6 Upper Body Dressing (QC): 6 Lower Body Dressing (QC): 6 On/Off Footwear (QC): 6 Additional Goals: 1-Demonstrate ADL Tasks, 2-Verbalize Understanding, 3- ImproveStrength/Aydin 1=Demonstrate adherence to instructed precautions during ADL tasks. 2=Patient will verbalize/demonstrate understanding of assistive devices/modifications for ADL. 3=Patient will improve strength/tolerance for activity to enable patient to perform ADL's. OT Education/Plan Problem List/Assessment Assessment: Decreased Activ Tolerance, Decreased UE Strength, Impaired I ADL's, Impaired Self-Care Skills Discharge Recommendations Plan/Recommendations: Continue POC Treatment Plan/Plan of Care Patient would benefit from OT for education, treatment and training to promote independence in ADL's, mobility, safety and/or upper extremity function for ADL's. Plan of Care: ADL Retraining, Functional Mobility, Group Exercise/Act as Ind, UE Funct Exercise/Act Treatment Duration: Jan 17, 2021 Frequency: At least 5 of 7 days/Wk (IRF) Estimated Hrs Per Day: 1.5 hours per day Rehab Potential: Good Time/GCodes Start Time: 09:00 Stop Time: 10:00 Total Time Billed (hr/min): 60 Billed Treatment Time 1, ADL 3 (45'), FA (15') ZUNILDA RAMEY OT Dec 30, 2020 09:18
--- NOTE | 2020-12-30 11:37 | Physical Therapy Daily Note ---
PT Daily Note-Current Subjective Pt in recliner, agreeable to ther ex in chair. Pt denies pain. Spouse present. Mental Status Patient Orientation: Person, Place, Situation Transfers SCALE: Activities may be completed with or without assistive devices. 0-Umqmgkuzow-xazuyfs completes the activity by him/herself with no assistance from a helper. 5-Set-up or Clean-up Assistance-helper sets up or cleans up; patient completes activity. [place] assists only prior to or following the activity. 4-Supervision or Touching Assistance-helper provides verbal cues and/or touching/steadying and/or contact guard assistance as patient completes activity. Assistance may be provided throughout the activity or intermittently. 3-Partial/Moderate Assistance-helper does LESS THAN HALF the effort. [place] lifts, holds or supports trunk or limbs, but provides less than half the effort. 2-Substantial/Maximal Assistance-helper does MORE THAN HALF the effort. [place] lifts or holds trunk or limbs and provides more than half the effort. 1-Dmaygbxqe-xiypuq does ALL the effort. Patient does none of the effort to complete the activity. Or, the assistance of 2 or more helpers is required for the patient to complete the activity. If activity was not attempted, code reason: 7-Patient Refused. 9-Not Applicable-not attempted and the patient did not perform the activity before the current illness, exacerbation or injury. 10-Not Attempted due to Environmental Limitations-(lack of equipment, weather restraints, etc.). 88-Not Attempted due to Medical Conditions or Safety Concerns. Weight Bearing Sternal precautions. Exercises Supine Ex: Ankle pumps, Quad Set, Heel Slides, Short Arc Quads, Hip abd/add Supine Reps: 20 Assessment Current Status: Good Progress Very good performance with above ther ex. Pt progressing appropriately all phases of rehab. Pt remained in recliner with all needs met. PT Short Term Goals Short Term Goals Time Frame: Jan 01, 2021 Roll Left & Right: 6 Sit to lyin Lying to sitting on side of be: 6 Sit to stand: 4 Chair/ehm-fn-jpvlp transfer: 4 Toilet transfer: 4 Car transfer: 4 Walk 150 feet: 4 PT Alf Goals Car Rental Agent Goals PT Alf Goals Time Frame: Jan 10, 2021 Roll Left & Right (QC): 6 Sit to Lying (QC): 6 Lying-Sitting on Side/Bed(QC): 6 Sit to Stand (QC): 6 Chair/Jkz-wy-Xdoak Xfer(QC): 6 Toilet Transfer (QC): 6 Car Transfer (QC): 6 Does the Patient Walk: Yes Walk 10 feet (QC): 6 Walk 50ft with 2 Turns (QC): 6 Walk 150 ft (QC): 6 Walking 10ft on Uneven Surface: 6 1 Step (curb) (QC): 6 4 Steps (QC): 6 12 Steps (QC): 4 Picking up an Object (QC): 4 Wheel 50 feet with 2 turns (QC: 9 Wheel 150 feet: 9 PT Plan Treatment/Plan Treatment Plan: Continue Plan of Care Treatment Plan: Bed Mobility, Education, Functional Activity Aydin, Functional Strength, Group Therapy, Gait, Safety, Therapeutic Exercise, Transfers Treatment Duration: Jan 10, 2021 Frequency: At least 5 of 7 days/Wk (IRF) Estimated Hrs Per Day: 1.5 hours per day Patient and/or Family Agrees t: Yes Time/GCodes Time In: 1045 Time Out: 1100 Total Billed Treatment Time: 15 Total Billed Treatment 1, ther ex 15' TEJA LOMBARDI CPTA Dec 30, 2020 11:37
--- NOTE | 2020-12-30 15:25 | Therapy Group Daily Note ---
Therapy Daily Group Note Patient Education Topic Home Safety Exercises LE Seated Exercise, UE Exercise Session Ratio (pt:therapist): 4:1 Goal of Session: Home Safety Strategies, UE/LE Strengthing Goal Met for this Session: Yes Pt Benefit of Group: Contributions to Others, F/U Use of Strategies @Home, Increased Functional Safety, Increased Functional Strength, Improved Cognition, Recognition of Peers, Socialization Other/Notes Pt ambulated using FWW to therapy gym for OT/PT group. Group consisted of introductions (name), socialization, B UE/LE seated exercises, home safety activity and home safety education. Pt introduced self appropriately and actively listen to peers. Pt then was able to complete B UE/LE seated exercises. Pt acknowledged understanding of educational topics by giving own examples and answering questions during home safety activity. After group, pt lying in bed with call light/phone in reach. All needs met in room. Start Time: 13:00 Stop Time: 14:25 Total Billed Treatment Time: 85 Total Billed Treatment 1-[facility] NATHAN VALLADARES Dec 30, 2020 15:25
[2020-12-30 20:00] VITALS: BP 103/54
[2020-12-30] MEDS: eZETimibe 10 MG (ZETIA) TABLET PO SCH (21:24)
--- NOTE | 2020-12-31 05:33 | PM&R Progress Note ---
Subjective HPI/CC On Admission Date Seen by Provider: Dec 31, 2020 Time Seen by Provider: 11:00 Subjective/Events-last exam 12/31/20: Pt doing pretty well Stool softeners will be given No diarrhea, opposite of problem now Checked meds and labs 12/30/2020: No major issues Bowels moved yesterday Having no new concerns Wants to go home soon 12/29/2020: Patient doing really well No more loose stools Blood sugars monitored No pain 12/28/2020: Pt doing pretty well Metformin will be discontinued due to diarrhea Checked meds and labs No falls Progressing nicely 12/27/2020: Pt doing very well Accuchecks BID will be changed for QID Overall doing very well Bowels are functioning well 12/26/2020: Pt doing pretty well Cardiology consulted Hgb 11.0 Bowels moving pretty well Checked meds and labs No falls Overall slept very well last night Review of Systems General: Fatigue, Malaise Pulmonary: Dyspnea Objective Exam Vital Signs Vital Signs Date Time Temp Pulse Resp B/P (MAP) Pulse Ox O2 Delivery O2 Flow Rate FiO2 12/31/20 20:20 36.9 99 18 112/55 (74) 97 Room Air Capillary Refill : General Appearance: No Apparent Distress, WD/WN, Chronically ill, Thin HEENT: PERRL/EOMI, Normal ENT Inspection, Pharynx Normal Neck: Full Range of Motion, Normal Inspection, Non Tender, Supple, Carotid Bruit Respiratory: Chest Non Tender, Lungs Clear, Normal Breath Sounds, No Accessory Muscle Use, No Respiratory Distress Cardiovascular: Regular Rate, Rhythm, No Edema, No Gallop, No JVD, No Murmur, Normal Peripheral Pulses Gastrointestinal: Normal Bowel Sounds, No Organomegaly, No Pulsatile Mass, Non Tender, Soft Back: Normal Inspection, No CVA Tenderness, No Vertebral Tenderness Extremity: Normal Capillary Refill, Normal Inspection, Normal Range of Motion, Non Tender, No Calf Tenderness, No Pedal Edema Neurologic/Psychiatric: Alert, Oriented x3, No Motor/Sensory Deficits, Normal M ood/Affect, Motor Weakness (Generalized 3/5 all extremities) Skin: Normal Color, Warm/Dry Lymphatic: No Adenopathy Results/Procedures Lab Patient resulted labs reviewed. FIM Transfers Therapy Code Descriptions/Definitions Functional [place] Measure: 0=Not Assessed/NA 4=Minimal Assistance 1=Total Assistance 5=Supervision or Setup 2=Maximal Assistance 6=Modified [place] 3=Moderate Assistance 7=Complete IndependenceSCALE: Activities may be completed with or without assistive devices. 7-Tppepefpub-btqnulc completes the activity by him/herself with no assistance from a helper. 5-Set-up or Clean-up Assistance-helper sets up or cleans up; patient completes activity. [place] assists only prior to or following the activity. 4-Supervision or Touching Assistance-helper provides verbal cues and/or touching/steadying and/or contact guard assistance as patient completes activity. Assistance may be provided throughout the activity or intermittently. 3-Partial/Moderate Assistance-helper does LESS THAN HALF the effort. [place] lifts, holds or supports trunk or limbs, but provides less than half the effort. 2-Substantial/Maximal Assistance-helper does MORE THAN HALF the effort. [place] lifts or holds trunk or limbs and provides more than half the effort. 6-Pjsoavqxt-toawxq does ALL the effort. Patient does none of the effort to complete the activity. Or, the assistance of 2 or more helpers is required for the patient to complete the activity. If activity was not attempted, code reason: 7-Patient Refused. 9-Not Applicable-not attempted and the patient did not perform the activity before the current illness, exacerbation or injury. 10-Not Attempted due to Environmental Limitations-(lack of equipment, weather restraints, etc.). 88-Not Attempted due to Medical Conditions or Safety Concerns. Roll Left to Right (QC): 4 Sit to Lying (QC): 4 Sit to Stand (QC): 4 Chair/Xje-gk-Rbynb Xfer(QC): 4 Car Transfer (QC): 3 Gait Training Does the Patient Walk?: Yes Distance: 3 x 150' Walk 10 feet (QC): 4 Walk 50 ft with 2 Turns(QC): 4 Walk 150 ft (QC): 4 Walking 10ft/uneven surface-QC: 4 Gait Assistive Device: FWW Wheelchair Training Does the Pt Use a Wheelchair?: No Wheel 50 ft with 2 turns (QC): 9 Wheel 150 ft (QC): 9 Stair Training #of Steps: 4 1 Step (curb) (QC): 3 4 Steps (QC): 3 12 Steps (QC): 88 Stairs: Pattern: Step to Balance Picking up an Object (QC): 88 ADL-Treatment Eating (QC): 6 (IND per pt report) Oral Hygiene (QC): 4 (SBA standing at sink) Shower/Bathe Self (QC): 5 (set up assist with sponge bath.) Upper Body Dressing (QC): 5 (set up assist) Lower Body Dressing (QC): 4 (supervision in stand, pt able to don/doff pants and underwear) On/Off Footwear (QC): 5 (set up with slip on shoes.) Toileting Hygiene (QC): 4 (CGA) Assessment/Plan Assessment and Plan Assess & Plan/Chief Complaint Assessment: Critical illness myopathy Severe cardiomyopathy ejection fraction of 25% requiring Life[facility] consulted cardiology CAD previous bypass on 12/16/2020 at Diabetes mellitus Generalized weakness Hypertension Hyperlipidemia Frail status Acute blood loss anemia Status post emergent embolectomy of the right leg post bypass surgery Previous cardiogenic shock Plan: Aggressive therapy Monitor labs closely Accu-Chek twice daily Home meds 12/26/2020: Supportive care Monitor oxygen level Aggressive treatment to regain function 12/27/2020: Appreciate cardiology consultation Monitor closely Accu-Cheks twice daily only 12/28/2020: Hold Metformin due to diarrhea Hold Tradjenta 12/29/2020: Improved bowel routine Check meds and labs 12/30/2020: Impressive recovery Monitor closely 12/31/20: Monitor closely Monitor O2 (1) Congestive heart failure Status: Acute (2) NSTEMI (non-ST elevated myocardial infarction) (3) Essential (primary) hypertension (4) HLD (hyperlipidemia) (5) Non-insulin dependent type 2 diabetes mellitus OTTO SHI DO Dec 31, 2020 05:33
[2020-12-31] MEDS: KCL 20 MEQ TAB (K-DUR) PO SCH (06:29)
[2020-12-31] MEDS: MULTIVIT W/MINERALS TAB (THERAGRAN M) PO SCH (06:29)
[2020-12-31] MEDS: GABAPENTIN 300 MG (NEURONTIN) CAP PO SCH ×3 (06:29→20:57)
[2020-12-31 07:59] VITALS: BP 103/54
--- NOTE | 2020-12-31 08:51 | Physical Therapy Daily Note ---
PT Daily Note-Current Subjective Patient in recliner pre tx, agrees to PT, has no complaints of pain. Appearance Patient in recliner post tx with nurse call, phone, tray, all needs met. Mental Status Patient Orientation: Normal For Age Transfers SCALE: Activities may be completed with or without assistive devices. 9-Uangmjviwy-wwrsmqh completes the activity by him/herself with no assistance from a helper. 5-Set-up or Clean-up Assistance-helper sets up or cleans up; patient completes activity. [place] assists only prior to or following the activity. 4-Supervision or Touching Assistance-helper provides verbal cues and/or touching/steadying and/or contact guard assistance as patient completes activity. Assistance may be provided throughout the activity or intermittently. 3-Partial/Moderate Assistance-helper does LESS THAN HALF the effort. [place] lifts, holds or supports trunk or limbs, but provides less than half the effort. 2-Substantial/Maximal Assistance-helper does MORE THAN HALF the effort. [place] lifts or holds trunk or limbs and provides more than half the effort. 9-Ookpsvbly-jxzcoj does ALL the effort. Patient does none of the effort to complete the activity. Or, the assistance of 2 or more helpers is required for the patient to complete the activity. If activity was not attempted, code reason: 7-Patient Refused. 9-Not Applicable-not attempted and the patient did not perform the activity before the current illness, exacerbation or injury. 10-Not Attempted due to Environmental Limitations-(lack of equipment, weather restraints, etc.). 88-Not Attempted due to Medical Conditions or Safety Concerns. Sit to Stand (QC): 5 Chair/Zsr-rm-Esfyx Xfer(QC): 5 Weight Bearing Sternal precautions. Gait Training Distance: 200'x2, 150'x2 Walk 10 feet (QC): 5 Walk 50 ft with 2 Turns(QC): 5 Walk 150 ft (QC): 5 Gait Assistive Device: FWW slow but steady ambulation Stair Training Stair Training: Handrails/: 2 handrails #of Steps: 8 1 Step (curb) (QC): 4 4 Steps (QC): 4 Stairs: Pattern: Step to Exercises NuStep Minutes: 15 NuStep Workload: 4 (arms not used) Treatments transfers, ambulation, functional strengthening Assessment Current Status: Fair Progress improving endurance but still needs frequent rest breaks, patient is compliant with her sternal precautions PT Short Term Goals Short Term Goals Time Frame: Jan 01, 2021 Roll Left & Right: 6 Sit to lyin Lying to sitting on side of be: 6 Sit to stand: 4 Chair/mry-tn-vviev transfer: 4 Toilet transfer: 4 Car transfer: 4 Walk 150 feet: 4 PT Intermediate Goals Sample Case [place] Goals PT Sample Case [place] Goals Time Frame: Jan 10, 2021 Roll Left & Right (QC): 6 Sit to Lying (QC): 6 Lying-Sitting on Side/Bed(QC): 6 Sit to Stand (QC): 6 Chair/Otf-ec-Xadma Xfer(QC): 6 Toilet Transfer (QC): 6 Car Transfer (QC): 6 Does the Patient Walk: Yes Walk 10 feet (QC): 6 Walk 50ft with 2 Turns (QC): 6 Walk 150 ft (QC): 6 Walking 10ft on Uneven Surface: 6 1 Step (curb) (QC): 6 4 Steps (QC): 6 12 Steps (QC): 4 Picking up an Object (QC): 4 Wheel 50 feet with 2 turns (QC: 9 Wheel 150 feet: 9 PT Plan Problem List Problem List: Activity Tolerance, Functional Strength, Safety, Balance, Gait, Transfer, Bed Mobility, ROM Treatment/Plan Treatment Plan: Continue Plan of Care Treatment Plan: Bed Mobility, Education, Functional Activity Aydin, Functional Strength, Group Therapy, Gait, Safety, Therapeutic Exercise, Transfers Treatment Duration: Jan 10, 2021 Frequency: At least 5 of 7 days/Wk (IRF) Estimated Hrs Per Day: 1.5 hours per day Patient and/or Family Agrees t: Yes Safety Risks/Education Patient Education: Gait Training, Transfer Techniques, Correct Positioning, Safety Issues Teaching Recipient: Patient Teaching Methods: Demonstration, Discussion Response to Teaching: Reinforcement Needed Time/GCodes Time In: 0800 Time Out: 0900 Total Billed Treatment Time: 60 Total Billed Treatment 1 visit EX 15' FA 45' DARRIUS FENG PT Dec 31, 2020 08:51
[2020-12-31] MEDS: ASPIRIN 81 MG CHEW (CHILDREN'S ASA) PO SCH (09:13)
[2020-12-31] MEDS: SENNA W/DOCUSATE (SENOKOT S) TABLET PO SCH ×2 (09:13→21:09)
[2020-12-31] MEDS: ALLOPURINOL 100 MG (ZYLOPRIM) TAB PO SCH (09:13)
[2020-12-31] MEDS: DOCUSATE SODIUM 100 MG (COLACE) CAP PO SCH ×2 (09:13→21:09)
[2020-12-31] MEDS: CLOPIDOGREL 75 MG (PLAVIX) TABLET PO SCH (09:14)
[2020-12-31] MEDS: polyethylene glycoL POWDER 17 GM (MIRALAX) PACK PO SCH ×2 (09:14→21:09)
--- NOTE | 2020-12-31 10:04 | Progress Note - Cardiology ---
Cardiology SOAP Progress Note Subjective: Sitting up in recliner at the bedside States she is tired this morning after PT, but otherwise feels good Objective: I&O/Vital Signs 12/31/20 12/31/20 07:59 09:28 Temp 36.4 Pulse 92 Resp 16 B/P (MAP) 103/54 (70) Pulse Ox 97 O2 Delivery Room Air Room Air Constitutional: AAO x 3, well-developed, other (thin) Respiratory: No accessory muscle use, No respiratory distress; chest expansion is symmetric, chest is bilaterally symmetric, lungs clear to auscultation Cardiovascular: regular rate-rhythm; No JVD; S1 and S2 Gastrointestional: No tender; soft, round, audible bowel sounds Extremities: no lower extremity edema bilateral Neurologic/Psychiatric: grossly intact (moves all extremities) Skin: other (Mid-line ACW post surgical incision; edges approx; no redness, no swelling, no drainage) Results/Procedures: Labs Laboratory Tests 12/30/20 17:03: Glucometer 156H 12/30/20 21:22: Glucometer 213H 12/31/20 05:24: Glucometer 144H A/P: Assessment: CAD: - Severe multivessel coronary artery disease involving ostial LAD, ulcerated plaque with haziness in the proximal/ostial circumflex artery and occluded right coronary artery with collaterals from the left per cardiac cath of 12-07-[address] Toney - S/P CABG x 2 vessel (COFFMAN to LAD; SVG to OM1) on 12-16-20 at [facility] by Dr. Patel - complicated hospitalization at [facility] - acute right lower extremity arterial embolism post IABP removal, requiring emergent embolectomy (successful nondenominational of blood flow) ICM: - LVEF 30% per cardiac cath of 12-07-20 - LVEF 25% per echocardiogram of 12-20-20 at [facility] post CABG - Life Vest in place HTN - somewhat low BP, asymptomatic HLD treated with statin tx DM 2 - Management per medical services Plan: ARB, BB, aldactone - continue Monitor lab from time to time Replace electrolytes as indicated BP somewhat low, albeit asymptomatic - reduce medications LISSETH DUENAS Dec 31, 2020 10:04
[2020-12-31] MEDS: FUROSEMIDE 40 MG (LASIX) TAB PO SCH (10:21)
[2020-12-31 10:24] VITALS: BP 93/52
--- NOTE | 2020-12-31 11:05 | Occupational Ther Daily Note ---
OT Current Status-Daily Note Subjective Pt seated in recliner, agreeable to OT tx. Pt reports fatigued today. Mental Status/Objective Patient Orientation: Person, Place, Time, Situation ADL-Treatment Therapy Code Descriptions/Definitions Functional [place] Measure: 0=Not Assessed/NA 4=Minimal Assistance 1=Total Assistance 5=Supervision or Setup 2=Maximal Assistance 6=Modified [place] 3=Moderate Assistance 7=Complete IndependenceSCALE: Activities may be completed with or without assistive devices. 4-Lzujwurchi-ejoqyaa completes the activity by him/herself with no assistance from a helper. 5-Set-up or Clean-up Assistance-helper sets up or cleans up; patient completes activity. [place] assists only prior to or following the activity. 4-Supervision or Touching Assistance-helper provides verbal cues and/or touching/steadying and/or contact guard assistance as patient completes activity. Assistance may be provided throughout the activity or intermittently. 3-Partial/Moderate Assistance-helper does LESS THAN HALF the effort. [place] lifts, holds or supports trunk or limbs, but provides less than half the effort. 2-Substantial/Maximal Assistance-helper does MORE THAN HALF the effort. [place] lifts or holds trunk or limbs and provides more than half the effort. 9-Cjdmcizxt-bthmkl does ALL the effort. Patient does none of the effort to complete the activity. Or, the assistance of 2 or more helpers is required for the patient to complete the activity. If activity was not attempted, code reason: 7-Patient Refused. 9-Not Applicable-not attempted and the patient did not perform the activity before the current illness, exacerbation or injury. 10-Not Attempted due to Environmental Limitations-(lack of equipment, weather restraints, etc.). 88-Not Attempted due to Medical Conditions or Safety Concerns. Eating (QC): 6 Oral Hygiene (QC): 6 Shower/Bathe Self (QC): 7 Upper Body Dressing (QC): 5 Lower Body Dressing (QC): 5 On/Off Footwear: 6 Toileting Hygiene (QC): 6 Toilet Transfer (QC): 6 Other Treatment Pt seated in recliner, doffed night gown and donned UE clothing. Pt then used FWW to perform functional mobility to bathroom, completed toileting independently and donned LE clothing. Pt sat at sink to brush teeth, stating she didn't have enough energy to stand. Pt then used FWW to perform functional mobility to therapy gym, 1 seated rest break. In order to increase BUE strength, activity tolerance, and fine motor strength, pt removed beads from moderate resistance theraputty. she then placed/removed graded clothespins (1-5lb), first with R hand, then repeated task with L hand. Post tx, pt seated in chair in gym, all needs met. PT present to continue tx. Education OT Patient Education: Correct positioning, Modified ADL techniques, Progress toward Goal/Update tx plan, Purpose of tx/functional activities, Rehab process Teaching Recipient: Patient Teaching Methods: Discussion Response to Teaching: Verbalize Understanding OT Short Term Goals Short Term Goals Time Frame: Jan 03, 2021 Toileting hygiene: 5 Shower/bathe self: 5 Upper body dressin Lower body dressin Putting on/taking off footwear: 5 OT Booster Station Operator Goals Booster Station Operator Goals Time Frame: Jan 17, 2021 Eating (QC): 6 Oral Hygiene (QC): 6 Toileting Hygiene (QC): 6 Shower/Bathe Self (QC): 6 Upper Body Dressing (QC): 6 Lower Body Dressing (QC): 6 On/Off Footwear (QC): 6 Additional Goals: 1-Demonstrate ADL Tasks, 2-Verbalize Understanding, 3- ImproveStrength/Aydin 1=Demonstrate adherence to instructed precautions during ADL tasks. 2=Patient will verbalize/demonstrate understanding of assistive devices/mo difications for ADL. 3=Patient will improve strength/tolerance for activity to enable patient to perform ADL's. OT Education/Plan Problem List/Assessment Assessment: Decreased Activ Tolerance, Decreased UE Strength, Impaired I ADL's, Impaired Self-Care Skills Discharge Recommendations Plan/Recommendations: Continue POC Treatment Plan/Plan of Care Patient would benefit from OT for education, treatment and training to promote independence in ADL's, mobility, safety and/or upper extremity function for ADL's. Plan of Care: ADL Retraining, Functional Mobility, Group Exercise/Act as Ind, UE Funct Exercise/Act Treatment Duration: Jan 17, 2021 Frequency: At least 5 of 7 days/Wk (IRF) Estimated Hrs Per Day: 1.5 hours per day Rehab Potential: Good Time/GCodes Start Time: 10:15 Stop Time: 11:15 Total Time Billed (hr/min): 60 Billed Treatment Time 1, ADL 2 (30'), FA 2 (30') ZUNILDA RAMEY OT Dec 31, 2020 11:05
--- NOTE | 2020-12-31 11:48 | Physical Therapy Daily Note ---
PT Daily Note-Current Subjective Patient in therapy gym pre tx, agrees to PT, has no complaints of pain. Appearance Patient in recliner post tx with nurse call, phone, tray, all needs met. Mental Status Patient Orientation: Normal For Age Transfers SCALE: Activities may be completed with or without assistive devices. 4-Dcefwybies-fvepvlc completes the activity by him/herself with no assistance from a helper. 5-Set-up or Clean-up Assistance-helper sets up or cleans up; patient completes activity. [place] assists only prior to or following the activity. 4-Supervision or Touching Assistance-helper provides verbal cues and/or touching/steadying and/or contact guard assistance as patient completes activity. Assistance may be provided throughout the activity or intermittently. 3-Partial/Moderate Assistance-helper does LESS THAN HALF the effort. [place] lifts, holds or supports trunk or limbs, but provides less than half the effort. 2-Substantial/Maximal Assistance-helper does MORE THAN HALF the effort. [place] lifts or holds trunk or limbs and provides more than half the effort. 4-Exvkgucob-ftdvlc does ALL the effort. Patient does none of the effort to complete the activity. Or, the assistance of 2 or more helpers is required for the patient to complete the activity. If activity was not attempted, code reason: 7-Patient Refused. 9-Not Applicable-not attempted and the patient did not perform the activity before the current illness, exacerbation or injury. 10-Not Attempted due to Environmental Limitations-(lack of equipment, weather restraints, etc.). 88-Not Attempted due to Medical Conditions or Safety Concerns. Sit to Stand (QC): 5 Chair/Fzu-rd-Ckzin Xfer(QC): 5 Weight Bearing Sternal precautions. Gait Training Distance: 150'x3 Walk 10 feet (QC): 5 Walk 50 ft with 2 Turns(QC): 5 Walk 150 ft (QC): 5 Gait Assistive Device: FWW slow but steady ambulation Exercises Seated Therapy Exercises: Ankle pumps, Hip flexion, Hip abd/add (with ball and GTB) Seated Reps: 20 LAQ alternating for 5 min Treatments transfers, ambulation, LE strengthening Assessment Current Status: Fair Progress Needs rest breaks between activity PT Short Term Goals Short Term Goals Time Frame: Jan 01, 2021 Roll Left & Right: 6 Sit to lyin Lying to sitting on side of be: 6 Sit to stand: 4 Chair/xfy-tz-xtyao transfer: 4 Toilet transfer: 4 Car transfer: 4 Walk 150 feet: 4 PT Crime Scene Evidence Technician Goals Crime Scene Evidence Technician Goals PT Crime Scene Evidence Technician Goals Time Frame: Jan 10, 2021 Roll Left & Right (QC): 6 Sit to Lying (QC): 6 Lying-Sitting on Side/Bed(QC): 6 Sit to Stand (QC): 6 Chair/Xhz-an-Qglel Xfer(QC): 6 Toilet Transfer (QC): 6 Car Transfer (QC): 6 Does the Patient Walk: Yes Walk 10 feet (QC): 6 Walk 50ft with 2 Turns (QC): 6 Walk 150 ft (QC): 6 Walking 10ft on Uneven Surface: 6 1 Step (curb) (QC): 6 4 Steps (QC): 6 12 Steps (QC): 4 Picking up an Object (QC): 4 Wheel 50 feet with 2 turns (QC: 9 Wheel 150 feet: 9 PT Plan Problem List Problem List: Activity Tolerance, Functional Strength, Safety, Balance, Gait, Transfer, Bed Mobility, ROM Treatment/Plan Treatment Plan: Continue Plan of Care Treatment Plan: Bed Mobility, Education, Functional Activity Ayd[place], Functional Strength, Group Therapy, Gait, Safety, Therapeutic Exercise, Transfers Treatment Duration: Jan 10, 2021 Frequency: At least 5 of 7 days/Wk (IRF) Estimated Hrs Per Day: 1.5 hours per day Patient and/or Family Agrees t: Yes Safety Risks/Education Patient Education: Gait Training, Transfer Techniques, Correct Positioning, Safety Issues Teaching Recipient: Patient Teaching Methods: Demonstration, Discussion Response to Teaching: Reinforcement Needed Time/GCodes Time In: 1115 Time Out: 1145 Total Billed Treatment Time: 30 Total Billed Treatment 1 visit EX 10' GT 20' DARRIUS FENG PT Dec 31, 2020 11:48
--- NOTE | 2020-12-31 13:33 | Occupational Ther Daily Note ---
OT Current Status-Daily Note Subjective Pt seated in recliner, states she is super tired. Mental Status/Objective Patient Orientation: Person, Place, Time, Situation ADL-Treatment Therapy Code Descriptions/Definitions Functional [place] Measure: 0=Not Assessed/NA 4=Minimal Assistance 1=Total Assistance 5=Supervision or Setup 2=Maximal Assistance 6=Modified [place] 3=Moderate Assistance 7=Complete IndependenceSCALE: Activities may be completed with or without assistive devices. 2-Tymdhcasjn-mruqdqe completes the activity by him/herself with no assistance from a helper. 5-Set-up or Clean-up Assistance-helper sets up or cleans up; patient completes activity. [place] assists only prior to or following the activity. 4-Supervision or Touching Assistance-helper provides verbal cues and/or touching/steadying and/or contact guard assistance as patient completes activity. Assistance may be provided throughout the activity or intermittently. 3-Partial/Moderate Assistance-helper does LESS THAN HALF the effort. [place] lifts, holds or supports trunk or limbs, but provides less than half the effort. 2-Substantial/Maximal Assistance-helper does MORE THAN HALF the effort. [place] lifts or holds trunk or limbs and provides more than half the effort. 2-Vnqdqxwst-hixjno does ALL the effort. Patient does none of the effort to complete the activity. Or, the assistance of 2 or more helpers is required for the patient to complete the activity. If activity was not attempted, code reason: 7-Patient Refused. 9-Not Applicable-not attempted and the patient did not perform the activity bef ore the current illness, exacerbation or injury. 10-Not Attempted due to Environmental Limitations-(lack of equipment, weather r estraints, etc.). 88-Not Attempted due to Medical Conditions or Safety Concerns. Other Treatment Pt seated in recliner, agreeable to OT tx. Pt used FWW to perform functional mobility to ARU kitchen area, and into chair. OT placed x12 edwards bags in cabinets/drawers. Pt able to locate all edwards bags, picking them up with six sigma black trainer below the waist level, and from overhead cabinets. Pt maintained sternal precautions, only using 1 arm overhead to obtain edwards bags. Pt required 1 seated rest break at snf pavel, and cue for safety, as pt held walker out to the side when sitting in chair instead of keeping walker nearby. OT and pt discussed energy conservation techniques for home, with education on taking a rest break prior to the point of exhaustion. Pt returned to her room, transferring to recliner. Post tx, pt seated in recliner, call light in reach and all needs met. Education OT Patient Education: Correct positioning, Modified ADL techniques, Progress toward Goal/Update tx plan, Purpose of tx/functional activities, Rehab process, Safety issues, Transfer techniques Teaching Recipient: Patient Teaching Methods: Discussion Response to Teaching: Verbalize Understanding OT Short Term Goals Short Term Goals Time Frame: Jan 03, 2021 Toileting hygiene: 5 Shower/bathe self: 5 Upper body dressin Lower body dressin Putting on/taking off footwear: 5 OT Turbine Engine Assembler Goals Turbine Engine Assembler Goals Time Frame: Jan 17, 2021 Eating (QC): 6 Oral Hygiene (QC): 6 Toileting Hygiene (QC): 6 Shower/Bathe Self (QC): 6 Upper Body Dressing (QC): 6 Lower Body Dressing (QC): 6 On/Off Footwear (QC): 6 Additional Goals: 1-Demonstrate ADL Tasks, 2-Verbalize Understanding, 3-ImproveStrength/Aydin 1=Demonstrate adherence to instructed precautions during ADL tasks. 2=Patient will verbalize/demonstrate understanding of assistive devices/modifications for ADL. 3=Patient will improve strength/tolerance for activity to enable patient to perform ADL's. OT Education/Plan Problem List/Assessment Assessment: Decreased Activ Tolerance, Decreased UE Strength, Impaired I ADL's, Impaired Self-Care Skills Discharge Recommendations Plan/Recommendations: Continue POC Treatment Plan/Plan of Care Patient would benefit from OT for education, treatment and training to promote independence in ADL's, mobility, safety and/or upper extremity function for ADL's. Plan of Care: ADL Retraining, Functional Mobility, Group Exercise/Act as Ind, UE Funct Exercise/Act Treatment Duration: Jan 17, 2021 Frequency: At least 5 of 7 days/Wk (IRF) Estimated Hrs Per Day: 1.5 hours per day Rehab Potential: Good Time/GCodes Start Time: 13:00 Stop Time: 13:30 Total Time Billed (hr/min): 30 Billed Treatment Time 1, FA 2 ZUNILDA RAMEY OT Dec 31, 2020 13:33
[2020-12-31 13:36] VITALS: BP 91/53
[2020-12-31 18:24] VITALS: BP 108/63
[2020-12-31 20:20] VITALS: BP 112/55
[2020-12-31] MEDS: ROSUVASTATIN 10 MG (CRESTOR) TABLET PO SCH (20:57)
[2020-12-31] MEDS: ACETAMINOPHEN 325 MG TABLET PO PRN (20:58)
[2020-12-31] MEDS: eZETimibe 10 MG (ZETIA) TABLET PO SCH (20:58)
--- NOTE | 2021-01-01 05:25 | PM&R Progress Note ---
Subjective HPI/CC On Admission Date Seen by Provider: Jan 01, 2021 Time Seen by Provider: 09:30 Subjective/Events-last exam 01/01/2021: Pt doing pretty well DC planned for Wednesday Bowels moved yesterday 12/31/20: Pt doing pretty well Stool softeners will be given No diarrhea, opposite of problem now Checked meds and labs 12/30/2020: No major issues Bowels moved yesterday Having no new concerns Wants to go home soon 12/29/2020: Patient doing really well No more loose stools Blood sugars monitored No pain 12/28/2020: Pt doing pretty well Metformin will be discontinued due to diarrhea Checked meds and labs No falls Progressing nicely 12/27/2020: Pt doing very well Accuchecks BID will be changed for QID Overall doing very well Bowels are functioning well 12/26/2020: Pt doing pretty well Cardiology consulted Hgb 11.0 Bowels moving pretty well Checked meds and labs No falls Overall slept very well last night Review of Systems General: Fatigue, Malaise Objective Exam Vital Signs Vital Signs Date Time Temp Pulse Resp B/P (MAP) Pulse Ox O2 Delivery O2 Flow Rate FiO2 01/01/21 21:36 Room Air 01/01/21 20:00 36.5 98 18 129/60 (83) 95 Capillary Refill : General Appearance: No Apparent Distress, WD/WN, Chronically ill, Thin HEENT: PERRL/EOMI, Normal ENT Inspection, Pharynx Normal Neck: Full Range of Motion, Normal Inspection, Non Tender, Supple, Carotid Bruit Respiratory: Chest Non Tender, Lungs Clear, Normal Breath Sounds, No Accessory Muscle Use, No Respiratory Distress Cardiovascular: Regular Rate, Rhythm, No Edema, No Gallop, No JVD, No Murmur, Normal Peripheral Pulses Gastrointestinal: Normal Bowel Sounds, No Organomegaly, No Pulsatile Mass, Non Tender, Soft Back: Normal Inspection, No CVA Tenderness, No Vertebral Tenderness Extremity: Normal Capillary Refill, Normal Inspection, Normal Range of Motion, Non Tender, No Calf Tenderness, No Pedal Edema Neurologic/Psychiatric: Alert, Oriented x3, No Motor/Sensory Deficits, Normal Mood/Affect, Motor Weakness (Generalized 3/5 all extremities) Skin: Normal Color, Warm/Dry Lymphatic: No Adenopathy Results/Procedures Lab Patient resulted labs reviewed. FIM Transfers Therapy Code Descriptions/Definitions Functional [place] Measure: 0=Not Assessed/NA 4=Minimal Assistance 1=Total Assistance 5=Supervision or Setup 2=Maximal Assistance 6=Modified [place] 3=Moderate Assistance 7=Complete IndependenceSCALE: Activities may be completed with or without assistive devices. 3-Ldvrzyqohs-jmqvagu completes the activity by him/herself with no assistance from a helper. 5-Set-up or Clean-up Assistance-helper sets up or cleans up; patient completes activity. [place] assists only prior to or following the activity. 4-Supervision or Touching Assistance-helper provides verbal cues and/or touching/steadying and/or contact guard assistance as patient completes act ivity. Assistance may be provided throughout the activity or intermittently. 3-Partial/Moderate Assistance-helper does LESS THAN HALF the effort. [place] lifts, holds or supports trunk or limbs, but provides less than half the effort. 2-Substantial/Maximal Assistance-helper does MORE THAN HALF the effort. [place] lifts or holds trunk or limbs and provides more than half the effort. 6-Qgkpxqyvj-xujigr does ALL the effort. Patient does none of the effort to complete the activity. Or, the assistance of 2 or more helpers is required for the patient to complete the activity. If activity was not attempted, code reason: 7-Patient Refused. 9-Not Applicable-not attempted and the patient did not perform the activity before the current illness, exacerbation or injury. 10-Not Attempted due to Environmental Limitations-(lack of equipment, weather restraints, etc.). 88-Not Attempted due to Medical Conditions or Safety Concerns. Roll Left to Right (QC): 4 Sit to Lying (QC): 4 Sit to Stand (QC): 5 Chair/Nzu-mk-Ctmko Xfer(QC): 5 Car Transfer (QC): 3 Gait Training Does the Patient Walk?: Yes Distance: 150'x3 Walk 10 feet (QC): 5 Walk 50 ft with 2 Turns(QC): 5 Walk 150 ft (QC): 5 Walking 10ft/uneven surface-QC: 4 Gait Assistive Device: FWW Wheelchair Training Does the Pt Use a Wheelchair?: No Wheel 50 ft with 2 turns (QC): 9 Wheel 150 ft (QC): 9 Stair Training Stair Training: Handrails/: 2 handrails #of Steps: 8 1 Step (curb) (QC): 4 4 Steps (QC): 4 12 Steps (QC): 88 Stairs: Pattern: Step to Balance Picking up an Object (QC): 88 ADL-Treatment Eating (QC): 6 Oral Hygiene (QC): 6 Shower/Bathe Self (QC): 7 Upper Body Dressing (QC): 5 Lower Body Dressing (QC): 5 On/Off Footwear (QC): 6 Toileting Hygiene (QC): 6 Toilet Transfer (QC): 6 Assessment/Plan Assessment and Plan Assess & Plan/Chief Complaint Assessment: Critical illness myopathy Severe cardiomyopathy ejection fraction of 25% requiring LifeVest consulted cardiology CAD previous bypass on 12/16/2020 at Diabetes mellitus Generalized weakness Hypertension Hyperlipidemia [place] status Acute blood loss anemia Status post emergent embolectomy of the right leg post bypass surgery Previous cardiogenic shock Plan: Aggressive therapy Monitor labs closely Accu-Chek twice daily Home meds 12/26/2020: Supportive care Monitor oxygen level Aggressive treatment to regain function 12/27/2020: Appreciate cardiology consultation Monitor closely Accu-Cheks twice daily only 12/28/2020: Hold Metformin due to diarrhea Hold Tradjenta 12/29/2020: Improved bowel routine Check meds and labs 12/30/2020: Impressive recovery Monitor closely 12/31/20: Monitor closely Monitor O2 01/01/2021: Supportive care Discharge on Wednesday (1) Congestive heart failure Status: Acute (2) NSTEMI (non-ST elevated myocardial infarction) (3) Essential (primary) hypertension (4) HLD (hyperlipidemia) (5) Non-insulin dependent type 2 diabetes mellitus TOTO SHI DO Jan 01, 2021 05:25
[2021-01-01] MEDS: MULTIVIT W/MINERALS TAB (THERAGRAN M) PO SCH (06:18)
[2021-01-01] MEDS: GABAPENTIN 300 MG (NEURONTIN) CAP PO SCH ×3 (06:18→20:40)
[2021-01-01] MEDS: KCL 20 MEQ TAB (K-DUR) PO SCH (06:18)
[2021-01-01 07:20] VITALS: BP 126/60
[2021-01-01] MEDS: ASPIRIN 81 MG CHEW (CHILDREN'S ASA) PO SCH (08:53)
[2021-01-01] MEDS: FUROSEMIDE 40 MG (LASIX) TAB PO SCH (08:53)
[2021-01-01] MEDS: CLOPIDOGREL 75 MG (PLAVIX) TABLET PO SCH (08:53)
[2021-01-01] MEDS: LOSARTAN 25 MG (COZAAR) TAB PO SCH (08:54)
[2021-01-01] MEDS: SPIRONOLACTONE 25 MG (ALDACTONE) TAB PO SCH (08:54)
[2021-01-01] MEDS: ALLOPURINOL 100 MG (ZYLOPRIM) TAB PO SCH (08:54)
[2021-01-01] MEDS: DOCUSATE SODIUM 100 MG (COLACE) CAP PO SCH ×2 (08:55→20:39)
--- NOTE | 2021-01-01 08:55 | Physical Therapy Daily Note ---
PT Daily Note-Current Subjective Patient in recliner pre tx, agrees to PT, has no complaints of pain. Appearance Patient in recliner post tx with nurse call, phone, tray, all needs met. Mental Status Patient Orientation: Normal For Age Transfers SCALE: Activities may be completed with or without assistive devices. 7-Jvbyvcthzt-crwwvex completes the activity by him/herself with no assistance from a helper. 5-Set-up or Clean-up Assistance-helper sets up or cleans up; patient completes activity. [place] assists only prior to or following the activity. 4-Supervision or Touching Assistance-helper provides verbal cues and/or touching/steadying and/or contact guard assistance as patient completes activity. Assistance may be provided throughout the activity or intermittently. 3-Partial/Moderate Assistance-helper does LESS THAN HALF the effort. [place] lifts, holds or supports trunk or limbs, but provides less than half the effort. 2-Substantial/Maximal Assistance-helper does MORE THAN HALF the effort. [place] lifts or holds trunk or limbs and provides more than half the effort. 5-Taxlitenw-vnjbhc does ALL the effort. Patient does none of the effort to complete the activity. Or, the assistance of 2 or more helpers is required for the patient to complete the activity. If activity was not attempted, code reason: 7-Patient Refused. 9-Not Applicable-not attempted and the patient did not perform the activity before the current illness, exacerbation or injury. 10-Not Attempted due to Environmental Limitations-(lack of equipment, weather restraints, etc.). 88-Not Attempted due to Medical Conditions or Safety Concerns. Roll Left & Right (QC): 6 Sit to Lying (QC): 5 Lying to Sitting/Side of Bed(Q: 3 Sit to Stand (QC): 5 Chair/Tdq-qs-Houns Xfer(QC): 5 Patient needs just a little assist with upper body during supine to sit. Weight Bearing Sternal precautions. Gait Training Distance: 300', 150'x2 Walk 10 feet (QC): 5 Walk 50 ft with 2 Turns(QC): 5 Walk 150 ft (QC): 5 Gait Persons Needed: 1 Gait Assistive Device: FWW slow but steady ambulation Stair Training Stair Training: Handrails/: 2 handrails #of Steps: 8 1 Step (curb) (QC): 4 4 Steps (QC): 4 Stairs: Pattern: Step to Exercises LAQ alternating for 5 min NuStep Minutes: 15 NuStep Workload: 5 (UE's not used) Treatments bed mobility and transfers, ambulation, stair training, functional strengthening Assessment Current Status: Fair Progress improving endurance, compliant with sternal precautions PT Short Term Goals Short Term Goals Time Frame: Jan 01, 2021 Roll Left & Right: 6 Sit to lyin Lying to sitting on side of be: 6 Sit to stand: 4 Chair/tth-qs-mdocu transfer: 4 Toilet transfer: 4 Car transfer: 4 Walk 150 feet: 4 PT Fdc Goals Hydrographic Engineer Goals PT Fdc Goals Time Frame: Jan 10, 2021 Roll Left & Right (QC): 6 Sit to Lying (QC): 6 Lying-Sitting on Side/Bed(QC): 6 Sit to Stand (QC): 6 Chair/Ouw-el-Igojj Xfer(QC): 6 Toilet Transfer (QC): 6 Car Transfer (QC): 6 Does the Patient Walk: Yes Walk 10 feet (QC): 6 Walk 50ft with 2 Turns (QC): 6 Walk 150 ft (QC): 6 Walking 10ft on Uneven Surface: 6 1 Step (curb) (QC): 6 4 Steps (QC): 6 12 Steps (QC): 4 Picking up an Object (QC): 4 Wheel 50 feet with 2 turns (QC: 9 Wheel 150 feet: 9 PT Plan Problem List Problem List: Activity Tolerance, Functional Strength, Safety, Balance, Gait, Transfer, Bed Mobility, ROM Treatment/Plan Treatment Plan: Continue Plan of Care Treatment Plan: Bed Mobility, Education, Functional Activity Aydin, Functional Strength, Group Therapy, Gait, Safety, Therapeutic Exercise, Transfers Treatment Duration: Jan 10, 2021 Frequency: At least 5 of 7 days/Wk (IRF) Estimated Hrs Per Day: 1.5 hours per day Patient and/or Family Agrees t: Yes Safety Risks/Education Patient Education: Gait Training, Transfer Techniques, Reviewed Precautions, Correct Positioning, Safety Issues Teaching Recipient: Patient Teaching Methods: Demonstration, Discussion Response to Teaching: Reinforcement Needed Time/GCodes Time In: 0800 Time Out: 0900 Total Billed Treatment Time: 60 Total Billed Treatment 1 visit EX 20' FA 40' DARRIUS FENG PT Jan 01, 2021 08:55
[2021-01-01] MEDS: SENNA W/DOCUSATE (SENOKOT S) TABLET PO SCH ×2 (08:56→20:38)
[2021-01-01] MEDS: polyethylene glycoL POWDER 17 GM (MIRALAX) PACK PO SCH ×2 (08:56→21:03)
--- NOTE | 2021-01-01 10:53 | Occupational Ther Daily Note ---
OT Current Status-Daily Note Subjective Pt in chair, agreeable to OT tx. Mental Status/Objective Patient Orientation: Normal For Age ADL-Treatment Therapy Code Descriptions/Definitions Functional [place] Measure: 0=Not Assessed/NA 4=Minimal Assistance 1=Total Assistance 5=Supervision or Setup 2=Maximal Assistance 6=Modified [place] 3=Moderate Assistance 7=Complete IndependenceSCALE: Activities may be completed with or without assistive devices. 0-Nucqkijtnt-pcygmfq completes the activity by him/herself with no assistance from a helper. 5-Set-up or Clean-up Assistance-helper sets up or cleans up; patient completes activity. [place] assists only prior to or following the activity. 4-Supervision or Touching Assistance-helper provides verbal cues and/or touching/steadying and/or contact guard assistance as patient completes activity. Assistance may be provided throughout the activity or intermittently. 3-Partial/Moderate Assistance-helper does LESS THAN HALF the effort. [place] lifts, holds or supports trunk or limbs, but provides less than half the effort. 2-Substantial/Maximal Assistance-helper does MORE THAN HALF the effort. [place] lifts or holds trunk or limbs and provides more than half the effort. 4-Jtdffbjif-kvwrrp does ALL the effort. Patient does none of the effort to complete the activity. Or, the assistance of 2 or more helpers is required for the patient to complete the activity. If activity was not attempted, code reason: 7-Patient Refused. 9-Not Applicable-not attempted and the patient did not perform the activity before the current illness, exacerbation or injury. 10-Not Attempted due to Environmental Limitations-(lack of equipment, weather restraints, etc.). 88-Not Attempted due to Medical Conditions or Safety Concerns. Eating (QC): 6 Oral Hygiene (QC): 6 (IND seated at sink.) Shower/Bathe Self (QC): 6 (IND, pt able to wash/dry all parts.) Upper Body Dressing (QC): 5 (set up assistance with LifeVest. Pt able to don well puller shirt independently.) Lower Body Dressing (QC): 6 (IND with pants and underwear) On/Off Footwear: 6 (IND with slip on shoes.) Toileting Hygiene (QC): 6 (IND with hyigene and clothing management) Toilet Transfer (QC): 6 (IND ) Frequent rest breaks required throughout session. Other Treatment Pt in recliner, used FWW to perform functional mobility around room to gather clothing, then into bathroom. Pt transferred to SC, doffed clothes, and completed shower. Pt dried off, then donned clothing, set up assistance required with LifeVest. Pt able to don other clothing independently. Pt indicates she her daughters are going to assist with LifeVest at home. Pt then transferred to seat at sink where she brushed her hair and teeth independently. Pt used FWW to transfer to bed, supine independently. In order to increase activity tolerance, fine motor strength and coordination, pt removed beads from moderate resistance theraputty. Post tx, pt laying in bed, call light in reach and all needs met. Education OT Patient Education: Correct positioning, Modified ADL techniques, Progress toward Goal/Update tx plan, Purpose of tx/functional activities, Rehab process, Safety issues, Transfer techniques Teaching Recipient: Patient Teaching Methods: Discussion Response to Teaching: Verbalize Understanding OT Short Term Goals Short Term Goals Time Frame: Jan 03, 2021 Toileting hygiene: 5 Shower/bathe self: 5 Upper body dressin Lower body dressin Putting on/taking off footwear: 5 OT Correction Goals Correction Goals Time Frame: Jan 17, 2021 Eating (QC): 6 Oral Hygiene (QC): 6 Toileting Hygiene (QC): 6 Shower/Bathe Self (QC): 6 Upper Body Dressing (QC): 6 Lower Body Dressing (QC): 6 On/Off Footwear (QC): 6 Additional Goals: 1-Demonstrate ADL Tasks, 2-Verbalize Understanding, 3- ImproveStrength/Aydin 1=Demonstrate adherence to instructed precautions during ADL tasks. 2=Patient will verbalize/demonstrate understanding of assistive devices/modifications for ADL. 3=Patient will improve strength/tolerance for activity to enable patient to perform ADL's. OT Education/Plan Problem List/Assessment Assessment: Decreased Activ Tolerance, Decreased UE Strength, Impaired I ADL's Discharge Recommendations Plan/Recommendations: Continue POC Treatment Plan/Plan of Care Patient would benefit from OT for education, treatment and training to promote independence in ADL's, mobility, safety and/or upper extremity function for ADL's. Plan of Care: ADL Retraining, Functional Mobility, Group Exercise/Act as Ind, UE Funct Exercise/Act Treatment Duration: Jan 17, 2021 Frequency: At least 5 of 7 days/Wk (IRF) Estimated Hrs Per Day: 1.5 hours per day Rehab Potential: Good Time/GCodes Start Time: 10:00 Stop Time: 11:00 Total Time Billed (hr/min): 60 Billed Treatment Time 1, ADL 3 (45'), FA (15') ZUNILDA RAMEY OT Jan 01, 2021 10:53
--- NOTE | 2021-01-01 15:09 | Therapy Group Daily Note ---
Therapy Daily Group Note Patient Education Topic Other List Below (environmental/home safety) Exercises LE Seated Exercise, UE Exercise Session Ratio (pt:therapist): 4:1 Goal of Session: Home Safety Strategies, UE/LE Strengthing Goal Met for this Session: Yes Pt Benefit of Group: Contributions to Others, F/U Use of Strategies @Home, Increased Functional Safety, Increased Functional Strength, Improved Cognition, Recognition of Peers, Socialization Other/Notes Pt ambulated using FWW to [facility] for OT/PT group. Group consisted of introductions (name, place living), socialization, B UE/LE seated exercises and home/environmental education. Pt able to appropriately introduce self and actively listen to peers. Pt tolerated and completed B UE/LE seated exercises without difficulty. Pt completed environmental Bingo using fine and gross motor to place tokens on designated areas. Pt demonstrated knowledge of educational topic by participating in Bingo and giving own experiences. After session, pt lying in bed with call light/phone in reach. All needs met in room. Start Time: 13:00 Stop Time: 14:20 Total Billed Treatment Time: 80 Total Billed Treatment 1-NATHAN ESPINAL Jan 01, 2021 15:09
[2021-01-01 20:00] VITALS: BP 129/60
[2021-01-01] MEDS: eZETimibe 10 MG (ZETIA) TABLET PO SCH (20:38)
[2021-01-01] MEDS: ACETAMINOPHEN 325 MG TABLET PO PRN (20:41)
[2021-01-02] MEDS ORDERED: SITA50TA PO (05:26)
[2021-01-02] MEDS ORDERED: LOSA25TA41 PO (05:26)
[2021-01-02] MEDS ORDERED: SPIR25TA5 PO (05:26)
--- NOTE | 2021-01-02 05:27 | D/C HH Face to Face Order ---
D/C Face to Face Orders Reconcile Patient Problems Problems Reviewed?: Yes Instructions for Patient Home Health Patient Instructions/FollowUp: PCP 1 week Physician to follow Patient: PCP Discharge Diet for Home: ADA Diet, Cardiac Diet Patient Problems: CHF DM Patient Data-Allergies,Ht & Wt Patient Allergies: Coded Allergies: No Known Drug Allergies (Unverified , 12/06/20) Home Health Need/Face to Face Date of Face to Face: Jan 02, 2021 Clinical Findings: Generalized weakness and fatigue, Instability, Muscle weakness, Unsteady gait I have seen Pt psmt-qf-bbrx: Yes Discharged To: Home Diagnosis/Conditions: CHF DM Patient is Homebound due to: Uzma fall risk due to instabilty, Muscle weakness Homebound Status Due to the above stated illness, injury or surgical procedure (medical condition or diagnosis) and associated clinical findings, the patient is homebound because of his/her inability to leave home except with aid of a supportive device and/or person AND leaving the home requires a considerable and taxing effort or is medically contraindicated. Pt req the following assistanc: Walker Home Health Nursing Orders Home Health Services Order: Nursing Services, Bilingual Operator-Evaluate & Treat, Physical Therapy-Evaluate & Treat Certify Stmt I certify that this patient is under my care and that I, a nurse practitioner or a physician; a supply chain assistant working with me, had a face to face encounter that - meets the physician face to face encounter requirements with this patient as dated. OTTO SHI DO Jan 02, 2021 05:27
--- NOTE | 2021-01-02 05:37 | PM&R Progress Note ---
Subjective HPI/CC On Admission Date Seen by Provider: Jan 02, 2021 Time Seen by Provider: 11:00 Subjective/Events-last exam 01/02/2021: Pt doing pretty well Will review her DC medication list sent into [facility] Both daughters are at the bedside DC tomorrow 01/01/2021: Pt doing pretty well DC planned for Wednesday Bowels moved yesterday 12/31/20: Pt doing pretty well Stool softeners will be given No diarrhea, opposite of problem now Checked meds and labs 12/30/2020: No major issues Bowels moved yesterday Having no new concerns Wants to go home soon 12/29/2020: Patient doing really well No more loose stools Blood sugars monitored No pain 12/28/2020: Pt doing pretty well Metformin will be discontinued due to diarrhea Checked meds and labs No falls Progressing nicely 12/27/2020: Pt doing very well Accuchecks BID will be changed for QID Overall doing very well Bowels are functioning well 12/26/2020: Pt doing pretty well Cardiology consulted Hgb 11.0 Bowels moving pretty well Checked meds and labs No falls Overall slept very well last night Review of Systems General: Fatigue, Malaise Objective Exam Vital Signs Vital Signs Date Time Temp Pulse Resp B/P (MAP) Pulse Ox O2 Delivery O2 Flow Rate FiO2 01/02/21 21:25 Room Air 01/02/21 19:55 36.1 110 18 109/60 (76) 95 Capillary Refill : General Appearance: No Apparent Distress, WD/WN, Chronically ill, Thin HEENT: PERRL/EOMI, Normal ENT Inspection, Pharynx Normal Neck: Full Range of Motion, Normal Inspection, Non Tender, Supple, Carotid Bruit Respiratory: Chest Non Tender, Lungs Clear, Normal Breath Sounds, No Accessory Muscle Use, No Respiratory Distress Cardiovascular: Regular Rate, Rhythm, No Edema, No Gallop, No JVD, No Murmur, Normal Peripheral Pulses Gastrointestinal: Normal Bowel Sounds, No Organomegaly, No Pulsatile Mass, Non Tender, Soft Back: Normal Inspection, No CVA Tenderness, No Vertebral Tenderness Extremity: Normal Capillary Refill, Normal Inspection, Normal Range of Motion, Non Tender, No Calf Tenderness, No Pedal Edema Neurologic/Psychiatric: Alert, Oriented x3, No Motor/Sensory Deficits, Normal Mood/Affect, Motor Weakness (Generalized 3/5 all extremities) Skin: Normal Color, Warm/Dry Lymphatic: No Adenopathy Results/Procedures Lab Patient resulted labs reviewed. FIM Transfers Therapy Code Descriptions/Definitions Functional [place] Measure: 0=Not Assessed/NA 4=Minimal Assistance 1=Total Assistance 5=Supervision or Setup 2=Maximal Assistance 6=Modified [place] 3=Moderate Assistance 7=Complete IndependenceSCALE: Activities may be completed with or without assistive devices. 7-Xxjdbkgazi-ewjzwjq completes the activity by him/herself with no assistance from a helper. 5-Set-up or Clean-up Assistance-helper sets up or cleans up; patient completes activity. [place] assists only prior to or following the activity. 4-Supervision or Touching Assistance-helper provides verbal cues and/or touching/steadying and/or contact guard assistance as patient completes activity. Assistance may be provided throughout the activity or intermittently. 3-Partial/Moderate Assistance-helper does LESS THAN HALF the effort. [place] lifts, holds or supports trunk or limbs, but provides less than half the effort. 2-Substantial/Maximal Assistance-helper does MORE THAN HALF the effort. [place] lifts or holds trunk or limbs and provides more than half the effort. 0-Qazllqdky-chzsmy does ALL the effort. Patient does none of the effort to complete the activity. Or, the assistance of 2 or more helpers is required for the patient to complete the activity. If activity was not attempted, code reason: 7-Patient Refused. 9-Not Applicable-not attempted and the patient did not perform the activity before the current illness, exacerbation or injury. 10-Not Attempted due to Environmental Limitations-(lack of equipment, weather restraints, etc.). 88-Not Attempted due to Medical Conditions or Safety Concerns. Roll Left to Right (QC): 6 Sit to Lying (QC): 5 Sit to Stand (QC): 5 Chair/Rys-eq-Mnyqq Xfer(QC): 5 Car Transfer (QC): 3 Gait Training Does the Patient Walk?: Yes Distance: 300', 150'x2 Walk 10 feet (QC): 5 Walk 50 ft with 2 Turns(QC): 5 Walk 150 ft (QC): 5 Walking 10ft/uneven surface-QC: 4 Gait Persons Needed: 1 Gait Assistive Device: FWW Wheelchair Training Does the Pt Use a Wheelchair?: No Wheel 50 ft with 2 turns (QC): 9 Wheel 150 ft (QC): 9 Stair Training Stair Training: Handrails/: 2 handrails #of Steps: 8 1 Step (curb) (QC): 4 4 Steps (QC): 4 12 Steps (QC): 88 Stairs: Pattern: Step to Balance Picking up an Object (QC): 88 ADL-Treatment Eating (QC): 6 Oral Hygiene (QC): 6 (IND seated at sink.) Shower/Bathe Self (QC): 6 (IND, pt able to wash/dry all parts.) Upper Body Dressing (QC): 5 (set up assistance with LifeVest. Pt able to don kiln puller shirt independently.) Lower Body Dressing (QC): 6 (IND with pants and underwear) On/Off Footwear (QC): 6 (IND with slip on shoes.) Toileting Hygiene (QC): 6 (IND with hyigene and clothing management) Toilet Transfer (QC): 6 (IND ) Assessment/Plan Assessment and Plan Assess & Plan/Chief Complaint Assessment: Critical illness myopathy Severe cardiomyopathy ejection fraction of 25% requiring LifeVest consulted cardiology CAD previous bypass on 12/16/2020 at Diabetes mellitus Generalized weakness Hypertension Hyperlipidemia Frail status Acute blood loss anemia Status post emergent embolectomy of the right leg post bypass surgery Previous cardiogenic shock Plan: Aggressive therapy Monitor labs closely Accu-Chek twice daily Home meds 12/26/2020: Supportive care Monitor oxygen level Aggressive treatment to regain function 12/27/2020: Appreciate cardiology consultation Monitor closely Accu-Cheks twice daily only 12/28/2020: Hold Metformin due to diarrhea Hold Tradjenta 12/29/2020: Improved bowel routine Check meds and labs 12/30/2020: Impressive recovery Monitor closely 12/31/20: Monitor closely Monitor O2 01/01/2021: Supportive care Discharge on Wednesday01/02/2021: Discharge home tomorrow Reviewed meds (1) Congestive heart failure Status: Acute (2) NSTEMI (non-ST elevated myocardial infarction) (3) Essential (primary) hypertension (4) HLD (hyperlipidemia) (5) Non-insulin dependent type 2 diabetes mellitus OTTO SHI DO Jan 02, 2021 05:37
[2021-01-02] MEDS: GABAPENTIN 300 MG (NEURONTIN) CAP PO SCH ×3 (06:04→20:33)
[2021-01-02] MEDS: KCL 20 MEQ TAB (K-DUR) PO SCH (06:04)
[2021-01-02] MEDS: MULTIVIT W/MINERALS TAB (THERAGRAN M) PO SCH (06:04)
[2021-01-02 07:30] VITALS: BP 106/56
[2021-01-02] MEDS: CLOPIDOGREL 75 MG (PLAVIX) TABLET PO SCH (07:30)
[2021-01-02] MEDS: ALLOPURINOL 100 MG (ZYLOPRIM) TAB PO SCH (07:30)
[2021-01-02] MEDS: ASPIRIN 81 MG CHEW (CHILDREN'S ASA) PO SCH (07:30)
[2021-01-02] MEDS: DOCUSATE SODIUM 100 MG (COLACE) CAP PO SCH ×2 (07:30→20:58)
[2021-01-02] MEDS: FUROSEMIDE 40 MG (LASIX) TAB PO SCH (07:30)
[2021-01-02] MEDS: SENNA W/DOCUSATE (SENOKOT S) TABLET PO SCH ×2 (07:30→20:58)
[2021-01-02] MEDS: SPIRONOLACTONE 25 MG (ALDACTONE) TAB PO SCH (07:31)
[2021-01-02] MEDS: LOSARTAN 25 MG (COZAAR) TAB PO SCH (07:31)
[2021-01-02] MEDS: polyethylene glycoL POWDER 17 GM (MIRALAX) PACK PO SCH ×2 (07:35→19:28)
--- NOTE | 2021-01-02 10:13 | Occupational Ther Daily Note ---
OT Current Status-Daily Note Subjective Pt in bed, agreeable to OT tx. States she feels ready to discharge. Mental Status/Objective Patient Orientation: Normal For Age Attachments: Other-See Comments (LifeVest) ADL-Treatment Therapy Code Descriptions/Definitions Functional [place] Measure: 0=Not Assessed/NA 4=Minimal Assistance 1=Total Assistance 5=Supervision or Setup 2=Maximal Assistance 6=Modified [place] 3=Moderate Assistance 7=Complete IndependenceSCALE: Activities may be completed with or without assistive devices. 2-Zcbecuipio-mfatztb completes the activity by him/herself with no assistance from a helper. 5-Set-up or Clean-up Assistance-helper sets up or cleans up; patient completes activity. [place] assists only prior to or following the activity. 4-Supervision or Touching Assistance-helper provides verbal cues and/or touching/steadying and/or contact guard assistance as patient completes activity. Assistance may be provided throughout the activity or intermittently. 3-Partial/Moderate Assistance-helper does LESS THAN HALF the effort. [place] lifts, holds or supports trunk or limbs, but provides less than half the effort. 2-Substantial/Maximal Assistance-helper does MORE THAN HALF the effort. [place] lifts or holds trunk or limbs and provides more than half the effort. 8-Jknxzazlh-jmbavt does ALL the effort. Patient does none of the effort to complete the activity. Or, the assistance of 2 or more helpers is required for the patient to complete the activity. If activity was not attempted, code reason: 7-Patient Refused. 9-Not Applicable-not attempted and the patient did not perform the activity before the current illness, exacerbation or injury. 10-Not Attempted due to Environmental Limitations-(lack of equipment, weather restraints, etc.). 88-Not Attempted due to Medical Conditions or Safety Concerns. Upper Body Dressing (QC): 6 (lug breaker and wire puller shirt only) Lower Body Dressing (QC): 6 On/Off Footwear: 6 frequent rest breaks with ADLs. Other Treatment [id number]: Pt in bed, transferred supine to sit EOB. Pt changed clothes, then used FWW to perform functional mobility to therapy gym, 1 seated rest break. In order to increase BUE strength and activity tolerance, pt placed x100 pegs into foam pegboard, alternating hands, with 1 lb wrist weight BUEs. Pt took rest breaks as needed. Pt used FWW to return to room, 1 seated rest break. Post tx, pt seated in recliner, call light in reach and all needs met, 2 visitors present. [id number]: Pt up in recliner, 1 visitor present. OT educated pt on written HEP, pt completed 2x10 reps of the following: bilateral shoulder flexion (alternating hands), elbow extension, shoulder shrugs, finger flexion/extension and wrist circles. Pt demo'd ability to follow written HEP with min skilled verbal cues for technique. Post tx, pt seated in recliner, call light in reach and all needs met. Education OT Patient Education: Correct positioning, Modified ADL techniques, Progress toward Goal/Update tx plan, Purpose of tx/functional activities Teaching Recipient: Patient Teaching Methods: Discussion Response to Teaching: Verbalize Understanding OT Short Term Goals Short Term Goals Time Frame: Jan 03, 2021 Toileting hygiene: 5 Shower/bathe self: 5 Upper body dressin Lower body dressin Putting on/taking off footwear: 5 OT Sanforizer Goals Snf Goals Time Frame: Jan 17, 2021 Eating (QC): 6 (met) Oral Hygiene (QC): 6 (met) Toileting Hygiene (QC): 6 (met) Shower/Bathe Self (QC): 6 (met) Upper Body Dressing (QC): 6 (not met, set up) Lower Body Dressing (QC): 6 (met) On/Off Footwear (QC): 6 (met) Additional Goals: 1-Demonstrate ADL Tasks, 2-Verbalize Understanding, 3- ImproveStrength/Aydin 1=Demonstrate adherence to instructed precautions during ADL tasks. 2=Patient will verbalize/demonstrate understanding of assistive jf johnathan/modifications for ADL. 3=Patient will improve strength/tolerance for activity to enable patient to perform ADL's. OT Education/Plan Problem List/Assessment Assessment: Decreased Activ Tolerance, Decreased UE Strength, Impaired I ADL's, Impaired Self-Care Skills, Restricted Funct UE ROM Discharge Recommendations Plan/Recommendations: Continue POC Treatment Plan/Plan of Care Patient would benefit from OT for education, treatment and training to promote independence in ADL's, mobility, safety and/or upper extremity function for ADL 's. Plan of Care: ADL Retraining, Functional Mobility, Group Exercise/Act as Ind, UE Funct Exercise/Act Treatment Duration: Jan 17, 2021 Frequency: At least 5 of 7 days/Wk (IRF) Estimated Hrs Per Day: 1.5 hours per day Rehab Potential: Good Time/GCodes Start Time: 09:15 ([id number]) Stop Time: 13:30 ([id number]) Total Time Billed (hr/min): 90 Billed Treatment Time : 1, ADL (20'), FA 3 (40') [id number]: 1, EX 2 (30') ZUNILDA RAMEY OT Jan 02, 2021 10:13
--- NOTE | 2021-01-02 12:25 | Physical Therapy Daily Note ---
PT Daily Note-Current Subjective Pt sitting in recliner upon arrival. Pt agrees to PT. Pain Location: No Pain Reported Mental Status Patient Orientation: Person, Place, Time, Situation Attachments: Other-See Comments (LifeVest) Transfers SCALE: Activities may be completed with or without assistive devices. 8-Gfnpfbzlae-zatipmv completes the activity by him/herself with no assistance from a helper. 5-Set-up or Clean-up Assistance-helper sets up or cleans up; patient completes activity. [place] assists only prior to or following the activity. 4-Supervision or Touching Assistance-helper provides verbal cues and/or touching/steadying and/or contact guard assistance as patient completes activity. Assistance may be provided throughout the activity or intermittently. 3-Partial/Moderate Assistance-helper does LESS THAN HALF the effort. [place] lifts, holds or supports trunk or limbs, but provides less than half the effort. 2-Substantial/Maximal Assistance-helper does MORE THAN HALF the effort. [place] lifts or holds trunk or limbs and provides more than half the effort. 2-Apxzqyglo-tmziyr does ALL the effort. Patient does none of the effort to complete the activity. Or, the assistance of 2 or more helpers is required for the patient to complete the activity. If activity was not attempted, code reason: 7-Patient Refused. 9-Not Applicable-not attempted and the patient did not perform the activity before the current illness, exacerbation or injury. 10-Not Attempted due to Environmental Limitations-(lack of equipment, weather restraints, etc.). 88-Not Attempted due to Medical Conditions or Safety Concerns. Roll Left & Right (QC): 6 Sit to Lying (QC): 4 Lying to Sitting/Side of Bed(Q: 5 Sit to Stand (QC): 6 Chair/Moz-ff-Kaphm Xfer(QC): 6 Toilet Transfer (QC): 6 Car Transfer (QC): 6 Weight Bearing Full Weight Bearing Full Weight Bearing Sternal precautions. Gait Training Does the Patient Walk?: Yes Distance: 150' x2 Walk 10 feet (QC): 6 Walk 50 ft with 2 Turns(QC): 6 Walk 150 ft (QC): 6 Walking 10ft/uneven surface-QC: 6 Gait Persons Needed: 0 Gait Assistive Device: FWW Wheelchair Training Does the Pt Use a Wheelchair?: No Stair Training Stair Training: Handrails/: 2 handrails #of Steps: 4 1 Step (curb) (QC): 5 4 Steps (QC): 5 12 Steps (QC): 7 Stairs: Pattern: Step to Balance Picking up an Object (QC): 7 Special Test Comments Pt will have family to assist as well as sql bi developer if needed. Treatments Pt completed QC scoring items listed above as well as HAIRSPRING SETTER issued written HEP for Supine & Seated EX as requested by pt. Assessment Current Status: Good Progress Pt fatigues and needs occasional rest breaks to recover. PT Short Term Goals Short Term Goals Time Frame: Jan 01, 2021 Roll Left & Right: 6 Sit to lyin Lying to sitting on side of be: 6 Sit to stand: 4 Chair/lyi-dq-upalb transfer: 4 Toilet transfer: 4 Car transfer: 4 Walk 150 feet: 4 PT Local Combination Truck Driver Goals Local Combination Truck Driver Goals PT Local Combination Truck Driver Goals Time Frame: Jan 10, 2021 Roll Left & Right (QC): 6 Sit to Lying (QC): 6 Lying-Sitting on Side/Bed(QC): 6 Sit to Stand (QC): 6 Chair/Vyo-fm-Itehd Xfer(QC): 6 Toilet Transfer (QC): 6 Car Transfer (QC): 6 Does the Patient Walk: Yes Walk 10 feet (QC): 6 Walk 50ft with 2 Turns (QC): 6 Walk 150 ft (QC): 6 Walking 10ft on Uneven Surface: 6 1 Step (curb) (QC): 6 4 Steps (QC): 6 12 Steps (QC): 4 Picking up an Object (QC): 4 Wheel 50 feet with 2 turns (QC: 9 Wheel 150 feet: 9 PT Plan Problem List Problem List: Activity Tolerance Treatment/Plan Treatment Plan: Continue Plan of Care Treatment Plan: Bed Mobility, Education, Functional Activity Aydin, Functional Strength, Group Therapy, Gait, Safety, Therapeutic Exercise, Transfers Treatment Duration: Jan 10, 2021 Frequency: At least 5 of 7 days/Wk (IRF) Estimated Hrs Per Day: 1.5 hours per day Patient and/or Family Agrees t: Yes Safety Risks/Education Patient Education: Gait Training, Transfer Techniques, Steps, Issued Written HEP, Correct Positioning, Safety Issues Teaching Recipient: Patient, Family Teaching Methods: Discussion Response to Teaching: Verbalize Understanding Time/GCodes Time In: 1100 Time Out: 1200 Total Billed Treatment Time: 60 Total Billed Treatment 1, GT (15m) & FA x3 (45m) MELVI HALL HAIRSPRING SETTER Jan 02, 2021 12:25
--- NOTE | 2021-01-02 15:22 | Physical Therapy Daily Note ---
PT Daily Note-Current Subjective Pt sitting in recliner with daughter present. Pt asks to use BR to start tx. Pain Location: No Pain Reported Mental Status Patient Orientation: Person, Place, Time, Situation Attachments: Other-See Comments (LifeVest) Transfers SCALE: Activities may be completed with or without assistive devices. 9-Cxdagjlivc-jwncthb completes the activity by him/herself with no assistance from a helper. 5-Set-up or Clean-up Assistance-helper sets up or cleans up; patient completes activity. [place] assists only prior to or following the activity. 4-Supervision or Touching Assistance-helper provides verbal cues and/or touching/steadying and/or contact guard assistance as patient completes activ ity. Assistance may be provided throughout the activity or intermittently. 3-Partial/Moderate Assistance-helper does LESS THAN HALF the effort. [place] lifts, holds or supports trunk or limbs, but provides less than half the effort. 2-Substantial/Maximal Assistance-helper does MORE THAN HALF the effort. [place] lifts or holds trunk or limbs and provides more than half the effort. 7-Rzgbhlbyo-owtnzf does ALL the effort. Patient does none of the effort to complete the activity. Or, the assistance of 2 or more helpers is required for the patient to complete the activity. If activity was not attempted, code reason: 7-Patient Refused. 9-Not Applicable-not attempted and the patient did not perform the activity before the current illness, exacerbation or injury. 10-Not Attempted due to Environmental Limitations-(lack of equipment, weather restraints, etc.). 88-Not Attempted due to Medical Conditions or Safety Concerns. Sit to Stand (QC): 6 Toilet Transfer (QC): 6 Weight Bearing Full Weight Bearing Full Weight Bearing Sternal precautions. Gait Training Does the Patient Walk?: Yes Distance: 15' x2 Walk 10 feet (QC): 6 Gait Persons Needed: 1 Gait Assistive Device: FWW Wheelchair Training Does the Pt Use a Wheelchair?: No Treatments TF to standing and amb. to BR. After finishing, pt returns to recliner to rest. Discussion with pt & daughter over continued therapy and equipment after dc. All needs met, call light in hand. Assessment Current Status: Good Progress Pt has gained strength, mobility, activity tolerance and knowledge in safety in ARU stay. PT Short Term Goals Short Term Goals Time Frame: Jan 01, 2021 Roll Left & Right: 6 Sit to lyin Lying to sitting on side of be: 6 Sit to stand: 4 Chair/kyx-xs-heren transfer: 4 Toilet transfer: 4 Car transfer: 4 Walk 150 feet: 4 PT [facility] Carman Goals Shelter Goals PT [facility] Goals Time Frame: Jan 10, 2021 Roll Left & Right (QC): 6 Sit to Lying (QC): 6 Lying-Sitting on Side/Bed(QC): 6 Sit to Stand (QC): 6 Chair/Lsn-cr-Trtmh Xfer(QC): 6 Toilet Transfer (QC): 6 Car Transfer (QC): 6 Does the Patient Walk: Yes Walk 10 feet (QC): 6 Walk 50ft with 2 Turns (QC): 6 Walk 150 ft (QC): 6 Walking 10ft on Uneven Surface: 6 1 Step (curb) (QC): 6 4 Steps (QC): 6 12 Steps (QC): 4 Picking up an Object (QC): 4 Wheel 50 feet with 2 turns (QC: 9 Wheel 150 feet: 9 PT Plan Problem List Problem List: Activity Tolerance Treatment/Plan Treatment Plan: Continue Plan of Care Treatment Plan: Bed Mobility, Education, Functional Activity Aydin, Functional Strength, Group Therapy, Gait, Safety, Therapeutic Exercise, Transfers Treatment Duration: Jan 10, 2021 Frequency: At least 5 of 7 days/Wk (IRF) Estimated Hrs Per Day: 1.5 hours per day Patient and/or Family Agrees t: Yes Safety Risks/Education Patient Education: Correct Positioning, Safety Issues Teaching Recipient: Patient, Family Teaching Methods: Discussion Response to Teaching: Verbalize Understanding Time/GCodes Time In: 1330 Time Out: 1400 Total Billed Treatment Time: 30 Total Billed Treatment 1, FA x2 (30m) MELVI HALL AWARD MACHINE OPERATOR Jan 02, 2021 15:22
[2021-01-02 19:55] VITALS: BP 109/60
[2021-01-02] MEDS: eZETimibe 10 MG (ZETIA) TABLET PO SCH (20:33)
[2021-01-02] MEDS: MELATONIN 3 MG TABLET PO PRN (20:33)
[2021-01-02] MEDS: ACETAMINOPHEN 325 MG TABLET PO PRN (20:33)
[2021-01-02] MEDS ORDERED: EZET10TA49 PO (20:46)
[2021-01-02] MEDS ORDERED: MTP25TSR PO (20:46)
[2021-01-02] MEDS ORDERED: GABA300C PO ×2 (20:46)
[2021-01-02] MEDS ORDERED: SENN-109 PO (20:46)
[2021-01-02] MEDS ORDERED: ROSU10TA28 PO (20:46)
[2021-01-02] MEDS ORDERED: POTA-53 PO (20:46)
[2021-01-02] MEDS ORDERED: CLOP75TA28 PO (20:46)
[2021-01-02] MEDS ORDERED: ASPI-999 PO (20:46)
[2021-01-02] MEDS ORDERED: FURO40TA4 PO (20:46)
[2021-01-02] MEDS ORDERED: ALLO100T PO (20:46)
[2021-01-02] MEDS ORDERED: TRM50T PO (20:46)
[2021-01-02] MEDS ORDERED: TRAM50TA3 PO (20:50)
--- NOTE | 2021-01-03 05:55 | PM&R Progress Note ---
Subjective HPI/CC On Admission Date Seen by Provider: Jan 03, 2021 Subjective/Events-last exam 01/02/2021: Pt doing pretty well Will review her DC medication list sent into [facility] Both daughters are at the bedside DC tomorrow 01/01/2021: Pt doing pretty well DC planned for Wednesday Bowels moved yesterday 12/31/20: Pt doing pretty well Stool softeners will be given No diarrhea, opposite of problem now Checked meds and labs 12/30/2020: No major issues Bowels moved yesterday Having no new concerns Wants to go home soon 12/29/2020: Patient doing really well No more loose stools Blood sugars monitored No pain 12/28/2020: Pt doing pretty well Metformin will be discontinued due to diarrhea Checked meds and labs No falls Progressing nicely 12/27/2020: Pt doing very well Accuchecks BID will be changed for QID Overall doing very well Bowels are functioning well 12/26/2020: Pt doing pretty well Cardiology consulted Hgb 11.0 Bowels moving pretty well Checked meds and labs No falls Overall slept very well last night Objective Exam Vital Signs Vital Signs Date Time Temp Pulse Resp B/P (MAP) Pulse Ox O2 Delivery O2 Flow Rate FiO2 01/02/21 21:25 Room Air 01/02/21 19:55 36.1 110 18 109/60 (76) 95 Capillary Refill : General Appearance: No Apparent Distress, WD/WN, Chronically ill, Thin HEENT: PERRL/EOMI, Normal ENT Inspection, Pharynx Normal Neck: Full Range of Motion, Normal Inspection, Non Tender, Supple, Carotid Bruit Respiratory: Chest Non Tender, Lungs Clear, Normal Breath Sounds, No Accessory Muscle Use, No Respiratory Distress Cardiovascular: Regular Rate, Rhythm, No Edema, No Gallop, No JVD, No Murmur, Normal Peripheral Pulses Gastrointestinal: Normal Bowel Sounds, No Organomegaly, No Pulsatile Mass, Non Tender, Soft Back: Normal Inspection, No CVA Tenderness, No Vertebral Tenderness Extremity: Normal Capillary Refill, Normal Inspection, Normal Range of Motion, Non Tender, No Calf Tenderness, No Pedal Edema Neurologic/Psychiatric: Alert, Oriented x3, No Motor/Sensory Deficits, Normal Mood/Affect, Motor Weakness (Generalized 3/5 all extremities) Skin: Normal Color, Warm/Dry Lymphatic: No Adenopathy Results/Procedures Lab Patient resulted labs reviewed. FIM Transfers Therapy Code Descriptions/Definitions Functional [place] Measure: 0=Not Assessed/NA 4=Minimal Assistance 1=Total Assistance 5=Supervision or Setup 2=Maximal Assistance 6=Modified [place] 3=Moderate Assistance 7=Complete IndependenceSCALE: Activities may be completed with or without assistive devices. 5-Ucdnifptag-yxmhahj completes the activity by him/herself with no assistance from a helper. 5-Set-up or Clean-up Assistance-helper sets up or cleans up; patient completes activity. [place] assists only prior to or following the activity. 4-Supervision or Touching Assistance-helper provides verbal cues and/or touching/steadying and/or contact guard assistance as patient completes activity. Assistance may be provided throughout the activity or intermittently. 3-Partial/Moderate Assistance-helper does LESS THAN HALF the effort. [place] lifts, holds or supports trunk or limbs, but provides less than half the effort. 2-Substantial/Maximal Assistance-helper does MORE THAN HALF the effort. [place] lifts or holds trunk or limbs and provides more than half the effort. 4-Byjbaidru-gejgal does ALL the effort. Patient does none of the effort to complete the activity. Or, the assistance of 2 or more helpers is required for the patient to complete the activity. If activity was not attempted, code reason: 7-Patient Refused. 9-Not Applicable-not attempted and the patient did not perform the activity before the current illness, exacerbation or injury. 10-Not Attempted due to Environmental Limitations-(lack of equipment, weather restraints, etc.). 88-Not Attempted due to Medical Conditions or Safety Concerns. Roll Left to Right (QC): 6 Sit to Lying (QC): 4 Sit to Stand (QC): 6 Chair/Piz-pr-Bybnb Xfer(QC): 6 Car Transfer (QC): 6 Gait Training Does the Patient Walk?: Yes Distance: 15' x2 Walk 10 feet (QC): 6 Walk 50 ft with 2 Turns(QC): 6 Walk 150 ft (QC): 6 Walking 10ft/uneven surface-QC: 6 Gait Persons Needed: 1 Gait Assistive Device: FWW Wheelchair Training Does the Pt Use a Wheelchair?: No Wheel 50 ft with 2 turns (QC): 9 Wheel 150 ft (QC): 9 Stair Training Stair Training: Handrails/: 2 handrails #of Steps: 4 1 Step (curb) (QC): 5 4 Steps (QC): 5 12 Steps (QC): 7 Stairs: Pattern: Step to Balance Picking up an Object (QC): 7 ADL-Treatment Eating (QC): 6 Oral Hygiene (QC): 6 (IND seated at sink.) Shower/Bathe Self (QC): 6 (IND, pt able to wash/dry all parts.) Upper Body Dressing (QC): 6 (lumber puller shirt only) Lower Body Dressing (QC): 6 On/Off Footwear (QC): 6 Toileting Hygiene (QC): 6 (IND with hyigene and clothing management) Toilet Transfer (QC): 6 (IND ) Assessment/Plan Assessment and Plan Assess & Plan/Chief Complaint Assessment: Critical illness myopathy Severe cardiomyopathy ejection fraction of 25% requiring LifeVest consulted cardiology CAD previous bypass on 12/16/2020 at Diabetes mellitus Generalized weakness Hypertension Hyperlipidemia Frail status Acute blood loss anemia Status post emergent embolectomy of the right leg post bypass surgery Previous cardiogenic shock Plan: Aggressive therapy Monitor labs closely Accu-Chek twice daily Home meds 12/26/2020: Supportive care Monitor oxygen level Aggressive treatment to regain function 12/27/2020: Appreciate cardiology consultation Monitor closely Accu-Cheks twice daily only 12/28/2020: Hold Metformin due to diarrhea Hold Tradjenta 12/29/2020: Improved bowel routine Check meds and labs 12/30/2020: Impressive recovery Monitor closely 12/31/20: Monitor closely Monitor O2 01/01/2021: Supportive care Discharge on Wednesday01/02/2021: Discharge home tomorrow Reviewed meds (1) Congestive heart failure Status: Acute (2) NSTEMI (non-ST elevated myocardial infarction) (3) Essential (primary) hypertension (4) HLD (hyperlipidemia) (5) Non-insulin dependent type 2 diabetes mellitus OTTO SHI DO Jan 03, 2021 05:55
--- NOTE | 2021-01-03 05:56 | Discharge Summary ---
Diagnosis/Chief Complaint Date of Admission Dec 25, 2020 at 13:44 Date of Discharge Discharge Date: Jan 03, 2021 Discharge Diagnosis Assessment: Critical illness myopathy Severe cardiomyopathy ejection fraction of 25% requiring LifeVest consulted cardiology CAD previous bypass on 12/16/2020 at Diabetes mellitus Generalized weakness Hypertension Hyperlipidemia Frail status Acute blood loss anemia Status post emergent embolectomy of the right leg post bypass surgery Previous cardiogenic shock Plan: Aggressive therapy Monitor labs closely Accu-Chek twice daily Home meds 12/26/2020: Supportive care Monitor oxygen level Aggressive treatment to regain function 12/27/2020: Appreciate cardiology consultation Monitor closely Accu-Cheks twice daily only 12/28/2020: Hold Metformin due to diarrhea Hold Tradjenta 12/29/2020: Improved bowel routine Check meds and labs 12/30/2020: Impressive recovery Monitor closely 12/31/20: Monitor closely Monitor O2 01/01/2021: Supportive care Discharge on Wednesday01/02/2021: Discharge home tomorrow Reviewed meds (1) Congestive heart failure Status: Acute (2) NSTEMI (non-ST elevated myocardial infarction) (3) Essential (primary) hypertension (4) HLD (hyperlipidemia) (5) Non-insulin dependent type 2 diabetes mellitus Discharge Summary Discharge Physical Examination Allergies: Coded Allergies: No Known Drug Allergies (Unverified , 12/06/20) Vitals & I&Os Vital Signs Date Time Temp Pulse Resp B/P (MAP) Pulse Ox O2 Delivery O2 Flow Rate FiO2 01/03/21 10:30 36.6 102 12 111/63 94 Room Air General Appearance: Alert, Oriented X3, Cooperative Respiratory: Clear to Auscultation Cardiovascular: Regular Rate Neuro: Normal Gait, Normal Speech, Strength at 5/5 X4 Ext Psych/Mental Status: Mental Status NL Hospital Course Was the Problem List Reviewed?: Yes Hospital course: Patient had an uneventful hospital course after she returned from cardiovascular surgery with slow recovery and emergent thrombectomy of the right lower extremity. She had no decompensation during hospital course. Cardiology managed cardiac meds and antihypertensive medication. Overall she did very well we did DC the Metformin due to diarrhea side effect and she was deemed stable for discharge. Labs (last 24 hrs) Laboratory Tests 12/25/20 21:35: Glucometer 145H 12/26/20 05:14: Glucometer 116H 12/26/20 06:14: White Blood Count 9.8, Red Blood Count 3.53L, Hemoglobin 11.0L, Hematocrit 34L, Mean Corpuscular Volume 97, Mean Corpuscular Hemoglobin 31, Mean Corpuscular Hemoglobin Concent 32, Red Cell Distribution Width 17.3H, Platelet Count 250, Mean Platelet Volume 9.2, Immature Granulocyte % (Auto) 2, Neutrophils (%) (Auto) 69, Lymphocytes (%) (Auto) 13, Monocytes (%) (Auto) 12, Eosinophils (%) (Auto) 3, Basophils (%) (Auto) 1, Neutrophils # (Auto) 6.8, Lymphocytes # (Auto) 1.3, Monocytes # (Auto) 1.2H, Eosinophils # (Auto) 0.3, Basophils # (Auto) 0.1, Immature Granulocyte # (Auto) 0.2H, Sodium Level 139, Potassium Level 4.5, Chloride Level 104, Carbon Dioxide Level 23, Anion Gap 12, Blood Urea Nitrogen 16, Creatinine 0.81, Estimat Glomerular Filtration Rate 69, BUN/Creatinine Ratio 20, Glucose Level 122H, Calcium Level 9.6, Corrected Calcium 9.8, Total Bilirubin 0.9, Aspartate Amino Transf (AST/SGOT) 20, Alanine Aminotransferase (ALT/SGPT) 17, Alkaline Phosphatase 71, Total Protein 6.9, Albumin 3.7 12/26/20 12:12: Glucometer 120H 12/26/20 16:22: Glucometer 129H 12/26/20 20:35: Glucometer 122H 12/27/20 05:28: Glucometer 120H 12/27/20 16:06: Glucometer 106 12/27/20 21:07: Glucometer 153H 12/28/20 06:22: Glucometer 108 12/28/20 16:03: Glucometer 116H 12/29/20 05:53: Glucometer 146H 12/29/20 15:28: Glucometer 189H 12/30/20 06:00: White Blood Count 10.9, Red Blood Count 3.61L, Hemoglobin 11.2L, Hematocrit 36, Mean Corpuscular Volume 98, Mean Corpuscular Hemoglobin 31, Mean Corpuscular H emoglobin Concent 32, Red Cell Distribution Width 17.3H, Platelet Count 350, Mean Platelet Volume 9.5, Immature Granulocyte % (Auto) 1, Neutrophils (%) (Auto) 73, Lymphocytes (%) (Auto) 13, Monocytes (%) (Auto) 9, Eosinophils (%) (Auto) 3, Basophils (%) (Auto) 1, Neutrophils # (Auto) 8.0H, Lymphocytes # (Auto) 1.4, Monocytes # (Auto) 1.0, Eosinophils # (Auto) 0.3, Basophils # (Auto) 0.1, Immature Granulocyte # (Auto) 0.1, Sodium Level 136, Potassium Level 4.4, Chloride Level 102, Carbon Dioxide Level 24, Anion Gap 10, Blood Urea Nitrogen 34H, Creatinine 1.18, Estimat Glomerular Filtration Rate 45, BUN/Creatinine Ratio 29, Glucose Level 127H, Calcium Level 10.4H, Corrected Calcium 10.4H, Total Bilirubin 0.9, Aspartate Amino Transf (AST/SGOT) 21, Alanine Aminotr ansferase (ALT/SGPT) 14, Alkaline Phosphatase 84, Total Protein 7.7, Albumin 4.0 12/30/20 17:03: Glucometer 156H 12/30/20 21:22: Glucometer 213H 12/31/20 05:24: Glucometer 144H 12/31/20 16:33: Glucometer 132H 01/01/21 05:40: Glucometer 133H 01/01/21 16:27: Glucometer 133H 01/02/21 05:40: Glucometer 129H 01/02/21 16:50: Glucometer 137H 01/03/21 05:20: Glucometer 132H Pending Labs Laboratory Tests 12/25/20 21:35: Glucometer 145 12/26/20 05:14: Glucometer 116 12/26/20 06:14: White Blood Count 9.8, Red Blood Count 3.53, Hemoglobin 11.0, Hematocrit 34, Mean Corpuscular Volume 97, Mean Corpuscular Hemoglobin 31, Mean Corpuscular Hemoglobin Concent 32, Red Cell Distribution Width 17.3, Platelet Count 250, Mean Platelet Volume 9.2, Immature Granulocyte % (Auto) 2, Neutrophils (%) (Auto) 69, Lymphocytes (%) (Auto) 13, Monocytes (%) (Auto) 12, Eosinophils (%) (Auto) 3, Basophils (%) (Auto) 1, Neutrophils # (Auto) 6.8, Lymphocytes # (Auto) 1.3, Monocytes # (Auto) 1.2, Eosinophils # (Auto) 0.3, Basophils # (Auto) 0.1, Immature Granulocyte # (Auto) 0.2, Sodium Level 139, Potassium Level 4.5, Chloride Level 104, Carbon Dioxide Level 23, Anion Gap 12, Blood Urea Nitrogen 16, Creatinine 0.81, Estimat Glomerular Filtration Rate 69, BUN/Creatinine Ratio 20, Glucose Level 122, Calcium Level 9.6, Corrected Calcium 9.8, Total Bilirubin 0.9, Aspartate Amino Transf (AST/SGOT) 20, Alanine Aminotransferase (ALT/SGPT) 17, Alkaline Phosphatase 71, Total Protein 6.9, Albumin 3.7 12/26/20 12:12: Glucometer 120 12/26/20 16:22: Glucometer 129 12/26/20 20:35: Glucometer 122 12/27/20 05:28: Glucometer 120 12/27/20 16:06: Glucometer 106 12/27/20 21:07: Glucometer 153 12/28/20 06:22: Glucometer 108 12/28/20 16:03: Glucometer 116 12/29/20 05:53: Glucometer 146 12/29/20 15:28: Glucometer 189 12/30/20 06:00: White Blood Count 10.9, Red Blood Count 3.61, Hemoglobin 11.2, Hematocrit 36, Mean Corpuscular Volume 98, Mean Corpuscular Hemoglobin 31, Mean Corpuscular Hemoglobin Concent 32, Red Cell Distribution Width 17.3, Platelet Count 350, Mean Platelet Volume 9.5, Immature Granulocyte % (Auto) 1, Neutrophils (%) (Auto) 73, Lymphocytes (%) (Auto) 13, Monocytes (%) (Auto) 9, Eosinophils (%) (Auto) 3, Basophils (%) (Auto) 1, Neutrophils # (Auto) 8.0, Lymphocytes # (Auto) 1.4, Monocytes # (Auto) 1.0, Eosinophils # (Auto) 0.3, Basophils # (Auto) 0.1, Immature Granulocyte # (Auto) 0.1, Sodium Level 136, Potassium Level 4.4, Chloride Level 102, Carbon Dioxide Level 24, Anion Gap 10, Blood Urea Nitrogen 34, Creatinine 1.18, Estimat Glomerular Filtration Rate 45, BUN/Creatinine Ratio 29, Glucose Level 127, Calcium Level 10.4, Corrected Calcium 10.4, Total Bilirubin 0.9, Aspartate Amino Transf (AST/SGOT) 21, Alanine Aminotransferase (ALT/SGPT) 14, Alkaline Phosphatase 84, Total Protein 7.7, Albumin 4.0 12/30/20 17:03: Glucometer 156 12/30/20 21:22: Glucometer 213 12/31/20 05:24: Glucometer 144 12/31/20 16:33: Glucometer 132 01/01/21 05:40: Glucometer 133 01/01/21 16:27: Glucometer 133 01/02/21 05:40: Glucometer 129 01/02/21 16:50: Glucometer 137 01/03/21 05:20: Glucometer 132 Discharge Home Medications: Active Scripts Active Tramadol HCl 50 Mg Tablet 50 Mg PO BID PRN Neurontin (Gabapentin) 300 Mg Capsule 300-600 Mg PO HS Neurontin (Gabapentin) 300 Mg Capsule 300 Mg PO 0700,1200 Allopurinol 100 Mg Tablet 100 Mg PO DAILY Senna-S Tablet (Sennosides/Docusate Sodium) 1 Each Tablet 2 Each PO BID Rosuvastatin Calcium 10 Mg Tablet 10 Mg PO Q72H K-Tab ER (Potassium Chloride) 20 Meq Tablet.er 20 Meq PO DAILY TAKES WITH A MEAL AND A FULL GLASS OF WATER Metoprolol Succinate 25 Mg Tab.er.24h 25 Mg PO HS Furosemide 40 Mg Tablet 40 Mg PO DAILY Ezetimibe 10 Mg Tablet 10 Mg PO HS Clopidogrel (Clopidogrel Bisulfate) 75 Mg Tablet 75 Mg PO DAILY Aspirin 81 Mg Tab.chew 81 Mg PO DAILY TAKE WITH FOOD Januvia (Sitagliptin Phosphate) 50 Mg Tablet 50 Mg PO DAILY Spironolactone 25 Mg Tablet 12.5 Mg PO DAILY Losartan Potassium 25 Mg Tablet 12.5 Mg PO DAILY Reported Preservision Areds 2 Softgel (Vit C/E/Zn/Coppr/Lutein/Zeaxan) 1 Each Capsule 1 Each PO DAILY Tylenol (Acetaminophen) 325 Mg Tablet 650 Mg PO Q6H PRN Instructions to patient/family Please see electronic discharge instructions given to patient. Diagnosis/Problems Diagnosis/Problems (1) Congestive heart failure Status: Acute (2) NSTEMI (non-ST elevated myocardial infarction) (3) Essential (primary) hypertension (4) HLD (hyperlipidemia) (5) Non-insulin dependent type 2 diabetes mellitus SHI,OTTO DO Jan 03, 2021 05:55
[2021-01-03] MEDS: MULTIVIT W/MINERALS TAB (THERAGRAN M) PO SCH (06:00)
[2021-01-03] MEDS: GABAPENTIN 300 MG (NEURONTIN) CAP PO SCH (06:00)
[2021-01-03] MEDS: KCL 20 MEQ TAB (K-DUR) PO SCH (06:00)
[2021-01-03 08:00] VITALS: BP 111/63
[2021-01-03] MEDS: ALLOPURINOL 100 MG (ZYLOPRIM) TAB PO SCH (08:04)
[2021-01-03] MEDS: DOCUSATE SODIUM 100 MG (COLACE) CAP PO SCH (08:04)
[2021-01-03] MEDS: SENNA W/DOCUSATE (SENOKOT S) TABLET PO SCH (08:04)
[2021-01-03] MEDS: ASPIRIN 81 MG CHEW (CHILDREN'S ASA) PO SCH (08:04)
[2021-01-03] MEDS: SPIRONOLACTONE 25 MG (ALDACTONE) TAB PO SCH (08:05)
[2021-01-03] MEDS: LOSARTAN 25 MG (COZAAR) TAB PO SCH (08:05)
[2021-01-03] MEDS: FUROSEMIDE 40 MG (LASIX) TAB PO SCH (08:05)
[2021-01-03] MEDS: CLOPIDOGREL 75 MG (PLAVIX) TABLET PO SCH (08:05)
[2021-01-03] MEDS: polyethylene glycoL POWDER 17 GM (MIRALAX) PACK PO SCH (08:34)
[2021-01-03 10:30] VITALS: BP 111/63
--- NOTE | 2021-01-03 11:44 | Therapy Team Discharge Summary ---
Therapy Discharge Summary Discharge Recommendations Date of Discharge Jan 03, 2021 at 10:30 Occupational Therapy Pt admitted to ARU s/p CABG. At PLOF, pt was independent with ADLs and functi onal mobility, no AD/AE. Upon initial evaluation, pt was independent with eating, SBA oral care, CGA showering, min A upper body dressing, CGA lower body dressing, set up footwear and CGA toileting. OT tx focused on increasing BUE strength and activity tolerance, and increasing safety and independence with ADLs and functional mobility. At discharge, pt required set up assistance with UE dressing due to LifeVest, and she was independent with all other ADLs. Pt met LTGs of eating, oral care, showering, lower body dressing, footwear and toileting. Pt discharged from facility, d/c from OT at this time. Decreased Activ Tolerance, Decreased UE Strength, Impaired I ADL's, Impaired Self-Care Skills, Restricted Funct UE ROM PT [facility] Goals [facility] Goals PT Installer Goals Time Frame: Jan 10, 2021 Roll Left to Right (QC): 6 Sit to Lying (QC): 6 Lying-Sitting on Side/Bed(QC): 6 Sit to Stand (QC): 6 Chair/Xqm-jk-Ensut Xfer(QC): 6 Car Transfer (QC): 6 Does the Patient Walk: Yes Walk 10 feet (QC): 6 Walk 10ft-Uneven Surface(QC): 6 Walk 50ft with 2 Turns (QC): 6 Walk 150 ft (QC): 6 Wheel 50 feet with 2 turns (QC: 9 1 Step (curb) (QC): 6 4 Steps (QC): 6 12 Steps (QC): 4 Picking up an Object (QC): 4 OT [facility] Goals [facility] Goals Time Frame: Jan 17, 2021 Eating (QC): 6 (met) Oral Hygiene (QC): 6 (met) Shower/Bathe Self (QC): 6 (met) Upper Body Dressing (QC): 6 (not met, set up) Lower Body Dressing (QC): 6 (met) On/Off Footwear (QC): 6 (met) Toileting Hygiene (QC): 6 (met) Toilet/Commode Transfer (QC): 6 Additional Goals: 1-Demonstrate ADL Tasks, 2-Verbalize Understanding, 3- ImproveStrength/Aydin 1=Demonstrate adherence to instructed precautions during ADL tasks. 2=Patient will verbalize/demonstrate understanding of assistive devices/modifications for ADL. 3=Patient will improve strength/tolerance for activity to enable patient to perform ADL's. ZUNILDA RAMEY OT Jan 03, 2021 11:44
--- NOTE | 2021-01-03 15:11 | Therapy Team Discharge Summary ---
Therapy Discharge Summary Discharge Recommendations Date of Discharge Jan 03, 2021 at 10:30 Physical Therapy Patient came to rehab post CABG. Upon evaluation patient performed bed mobility with independence, supine <-> sit min assist, sit <-> stand min assist, transfers CGA, car transfer min assist, ambulated 150' with a rolling walker with CGA/SBA (including 50' with at least 2 turns of 90 degrees and 10' over an uneven surface), and went up and down 1 step using a rolling walker with min assist. Patient has been performing bed mobility and transfer training, balance and endurance training, functional strengthening, stair training, gait training, and education. 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 Now, patient performs bed mobility with independence, sit to lying with SBA, lying to sit with setup, sit <-> stand and transfers with independence, car transfer independent, ambulates 150' with a rolling walker with independence (including 50' with at least 2 turns of 90 degrees and 10' over an uneven surface), can go up and down 4 step using 2 handrails with setup. Patient has been discharged from this facility and will be discharged from PT at this time. Occupational Therapy Decreased Activ Tolerance, Decreased UE Strength, Impaired I ADL's, Impaired Self-Care Skills, Restricted Funct UE ROM PT Longterm Goals Longterm Goals PT Longterm Goals Time Frame: Jan 10, 2021 Roll Left to Right (QC): 6 Sit to Lying (QC): 6 Lying-Sitting on Side/Bed(QC): 6 Sit to Stand (QC): 6 Chair/Upg-oy-Vbwdo Xfer(QC): 6 Car Transfer (QC): 6 Does the Patient Walk: Yes Walk 10 feet (QC): 6 Walk 10ft-Uneven Surface(QC): 6 Walk 50ft with 2 Turns (QC): 6 Walk 150 ft (QC): 6 Wheel 50 feet with 2 turns (QC: 9 1 Step (curb) (QC): 6 4 Steps (QC): 6 12 Steps (QC): 4 Picking up an Object (QC): 4 OT Binding Stitcher Goals Longterm Goals Time Frame: Jan 17, 2021 Eating (QC): 6 (met) Oral Hygiene (QC): 6 (met) Shower/Bathe Self (QC): 6 (met) Upper Body Dressing (QC): 6 (not met, set up) Lower Body Dressing (QC): 6 (met) On/Off Footwear (QC): 6 (met) Toileting Hygiene (QC): 6 (met) Toilet/Commode Transfer (QC): 6 Additional Goals: 1-Demonstrate ADL Tasks, 2-Verbalize Understanding, 3- ImproveStrength/Aydin 1=Demonstrate adherence to instructed precautions during ADL tasks. 2=Patient will verbalize/demonstrate understanding of assistive devices/modifications for ADL. 3=Patient will improve strength/tolerance for activity to enable patient to perform ADL's. DARRIUS FENG PT Jan 03, 2021 15:11
== END 2021-01-03 10:30 | disposition home health service (06) | DRG 91 ==
PROVIDERS: ADMIT Internal Medicine; ATTEND Internal Medicine
DX: G72.81 Critical illness myopathy (principal); I21.4 Non-ST elevation (NSTEMI) myocardial infarction; D62 Acute posthemorrhagic anemia; K52.1 Toxic gastroenteritis and colitis; I25.10 Atherosclerotic heart disease of native coronary artery without angina pectoris; Z95.1 Presence of aortocoronary bypass graft; I25.5 Ischemic cardiomyopathy; E78.00 Pure hypercholesterolemia, unspecified; E78.5 Hyperlipidemia, unspecified; I11.0 Hypertensive heart disease with heart failure; I50.9 Heart failure, unspecified; M10.9 Gout, unspecified; E11.9 Type 2 diabetes mellitus without complications; T38.3X5A Adverse effect of insulin and oral hypoglycemic [antidiabetic] drugs, initial encounter; Z86.718 Personal history of other venous thrombosis and embolism
CPT/HCPCS: 36415; 80053; 82947; 85025; 93926

== ENCOUNTER 2021-02-18 19:52 | Emergency (ER) | payer MEDICARE, OTHER ==
[~2021-02-18] VITALS: Ht 160 cm; Wt 53.0 kg
[~2021-02-18 19:52] MED LIST: ACET325T38 PO; ALLO100T PO; ASPI-999 PO; CLOP75TA28 PO; EZET10TA49 PO; FURO40TA4 PO; GABA300C PO; LOSA25TA41 PO; MTP25TSR PO; POTA-53 PO; ROSU10TA28 PO; SENN-109 PO; SITA1TAB6 PO; SITA50TA PO; SPIR25TA PO; SPIR25TA5 PO; TRAM50TA3 PO; TRM50T PO; VIT1CAPS44 PO
--- OUTSIDE RECORDS SUMMARY | 2021-02-18 19:58 | XMS REPORT | Clinical Summary ---
Author Author [facility] Organization [facility] Address Unknown Phone Unavailable Care Team Providers Care Political Aide Name Role Phone Jonn Terry PCP Source Comments Some departments are not documenting in the electronic medical record. If you d o not see the information that you expected, contact Release of Information in [facility] [employer] Information Management department at [phone] for further assistan ce in locating additional records.[facility] Allergies Comments Active Allergy Reactions Severity Noted Date Rosuvastatin MUSCLE PAIN Medium 12/11/2020 Medications End Date Status Medication Sig Dispensed Refills Start Date Active allopurinoL (ZYLOPRIM) Take 100 mg 0 100 mg tabletIndications: by mouth prevention of acute gout daily. Take attack with food. Indications: treatment to prevent acute gout attack Active antiox Take 1 tablet 0 #8/om3/dha/epa/lut/zeax by mouth (PRESERVISION AREDS 2 daily. (OMEGA-3) PO) Active gabapentin (NEURONTIN) Take 300 mg 0 300 mg capsule by mouth five times daily. Active acetaminophen (TYLENOL) Take two 0 325 mg tablet tablets by 1 mouth every 6 hours as needed. Active aspirin 81 mg chewable Chew one 90 tablet 0 tablet tablet by 1 mouth daily. Take with food. Active ezetimibe (ZETIA) 10 mg Take one 90 tablet 0 tablet tablet by 1 mouth at bedtime daily. Active furosemide (LASIX) 40 mg Take one 90 tablet 0 0 tablet tablet by 1 mouth daily. Active metoprolol XL (TOPROL XL) Take one 90 tablet 0 25 mg extended release tablet by 1 tablet mouth at bedtime daily. Active rosuvastatin (CRESTOR) 10 Take one 90 tablet 0 mg tablet tablet by 1 mouth every 72 hours. Active senna/docusate Take two 30 tablet 0 (SENOKOT-S) 8.6/50 mg tablets by 1 tablet mouth twice daily. Active potassium chloride SR Take one 90 tablet 0 /2 (K-DUR) 20 mEq tablet tablet by 1 mouth daily. Take with a meal and a full glass of water. Active clopiDOGrel (PLAVIX) 75 Take one 90 tablet 0 mg tablet tablet by 1 mouth daily. Active SITagliptin (JANUVIA) 50 Take 50 mg by 0 mg tablet mouth daily. Active nystatin (MYCOSTATIN) Take 500,000 0 100,000 units/mL oral Units by suspension mouth four times daily. Active Problems Problem Noted Date Acute blood loss anemia 12/17/2020 Type 2 diabetes mellitus 12/16/2020 S/P CABG x 2 12/16/2020 Overview: Formatting of this note might be differ ent from the original. 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 12/07/2020 pectoris NSTEMI, initial episode of care 12/07/2020 Resolved Problems Problem Noted Date Resolved Date Ischemia of right lower extremity 12/17/202012/05 Vasogenic shock 12/17/2020 12/20/2020 Cardiogenic shock 12/16/2020 12/20/2020 On intra-aortic balloon pump assist 12/16/2020 Hypokalemia 12/16/2020 12/20/2020 Encounters Care Team Description Date Type Specialty Malathi Post 02/17/2021 Telephone Cardiology Tab Patel MD S/P CABG x 2 (Primary Dx) 01/08/2021 Office Visit Cardiothoracic Surg Tina Dow PA-C 01/08/2021 Hospital Radiology Encounter 01/08/2021 Travel Brittany Hernandez PA-C 12/26/2020 Hospital Cardiology Encounter 12/26/2020 Travel Odell Dover MD Zwick, Ryan, MD 12/17/2020 Anesthesia Event Musa Salinas MD RIGHT LOWER EXTREMITY THROMBECTOMY 12/17/2020 Surgery Gretchen Bush RN Ischemic leg (Primary Dx) 12/17/2020 Prep for Case Vascular Surgery Tab Patel MD CABG x2, USHA, EVH, IABP 12/16/2020 Surgery Cheryl Valle MD Zwick, Ryan, MD 12/16/2020 Anesthesia Event 12/16/2020 Travel Fortunato Garsia III, MD Downey, Peter S, MD S/P CABG x 2 12/07/2020 Hospital - Encounter 12/25/2020 12/07/2020 Travel 12/06/2020 Hospital Radiology Encounter from Last 3 Months Immunizations Name Administration Dates Next Due COVID-19 (MODERNA), mRNA 12/25/2020 vacc, 100 mcg/0.5 mL (PF) Surgical History Surgery Date Site/Laterality Comments CORONARY ARTERY BYPASS 12/16/2020 N/A CABG x2 , USHA, EVH, IABP performed by Tab Patel MD at [facility] THROMBOENDARTECTOMY 12/17/2020 Right RIGHT LOWE R EXTREMITY THROMBECTOMY performed by Musa Salinas MD at [facility] Social History Date Tobacco Use Types Packs/Day Years Used Never Smoker Smokeless Tobacco: Never Used Comments Alcohol Use Standard Drinks/Week Not Currently 0 (1 standard drink = 0.6 o z pure alcohol) Sex Assigned at Date Recorded Not on file Last Filed Vital Signs Reading Time Taken Comments Vital Sign 112/68 01/08/2021 1:35 PM CDT Blood Pressure 73 01/08/2021 1:35 PM CDT Pulse 37.4 C (99.3 F) 12/25/2020 8:12 AM CDT Temperature 18 01/08/2021 1:35 PM CDT Respiratory Rate 94% 01/08/2021 1:35 PM CDT Oxygen Saturation - - Inhaled Oxygen Concentration 56.2 kg (124 lb) 01/08/2021 1:35 PM CDT Weight 157.5 cm (5' 2") 01/08/2021 1:35 PM CDT Height 22.68 01/08/2021 1:35 PM CDT Body Mass Index Plan of Treatment Health Maintenance Due Date Last Done Comments MEDICARE ANNUAL WELLNESS 1945 VISIT PNEUMONIA (PPSV23) 1952 VACCINE (1 of 2 - PPSV23) DTAP/TDAP VACCINES (1 - 1964 Tdap) HEPATITIS C SCREENING 1964 PHYSICAL (COMPREHENSIVE) 1964 EXAM BREAST CANCER SCREENING 1986 COLORECTAL CANCER 1996 SCREENING SHINGLES RECOMBINANT 1996 VACCINE (1 of 2) OSTEOPOROSIS 2011 SCREENING/MONITORING COVID-19 VACCINE (2 - 01/22/2021 12/25/2020 Moderna 2-dose series) INFLUENZA VACCINE 03/07/2021 Goals Goal Patient Associated Recent Progress Patient-Stat Aut hor Goal Type Problems ed? Recover from illness Hospital No Malia Ureña RN [facility] quality of life [facility] On track (12/07/2020 Anali Garcia, 9:49 PM CDT) PREETHI [employer] software Comments Procedure Name Priority Date/Time Associated Diag nosis CHEST 2 VIEWS Routine 01/08/2021 S/P CABG x 2 1:20 PM CDT ECG-SCAN 01/08/2021 12:00 AM CDT REMOTE WEARABLE Routine 12/26/2020 At risk for burns dden CARDIOVERTER-DEFIBRILLATO 5:23 AM CDT cardiac coleman th R (LIFEVEST) INTERROGATION POC GLUCOSE 12/25/2020 7:48 AM CDT CHEST SINGLE VIEW Routine 12/25/2020 6:35 AM CDT HC MAGNESIUM Routine 12/25/2020 5:58 AM CDT HC CBC,AUTOMATED Routine 12/25/2020 5:58 AM CDT HC BASIC METABOLIC PANEL Routine 12/25/2020 5:58 AM CDT POC GLUCOSE 12/24/2020 10:25 PM CDT POC GLUCOSE 12/24/2020 5:18 PM CDT POC GLUCOSE 12/24/2020 11:22 AM CDT POC GLUCOSE 12/24/2020 7:38 AM CDT CHEST SINGLE VIEW Routine 12/24/2020 6:29 AM CDT HC MAGNESIUM Routine 12/24/2020 4:28 AM CDT HC CBC,AUTOMATED Routine 12/24/2020 4:28 AM CDT HC BASIC METABOLIC PANEL Routine 12/24/2020 4:28 AM CDT POC GLUCOSE 12/23/2020 10:57 PM CDT POC GLUCOSE 12/23/2020 5:25 PM CDT POC GLUCOSE 12/23/2020 12:02 PM CDT POC GLUCOSE 12/23/2020 7:50 AM CDT CHEST SINGLE VIEW Routine 12/23/2020 6:12 AM CDT HC MAGNESIUM Routine 12/23/2020 4:49 AM CDT HC CBC,AUTOMATED Routine 12/23/2020 4:49 AM CDT HC BASIC METABOLIC PANEL Routine 12/23/2020 4:49 AM CDT POC GLUCOSE 12/22/2020 9:49 PM CDT POC GLUCOSE 12/22/2020 5:26 PM CDT POC GLUCOSE 12/22/2020 11:40 AM CDT POC GLUCOSE 12/22/2020 8:00 AM CDT CHEST 2 VIEWS Routine 12/22/2020 6:27 AM CDT HC MAGNESIUM Routine 12/22/2020 4:57 AM CDT HC CBC,AUTOMATED Routine 12/22/2020 4:57 AM CDT HC BASIC METABOLIC PANEL Routine 12/22/2020 4:57 AM CDT POC GLUCOSE 12/21/2020 10:29 PM CDT POC GLUCOSE 12/21/2020 5:38 PM CDT POC GLUCOSE 12/21/2020 11:27 AM CDT POC GLUCOSE 12/21/2020 7:34 AM CDT CHEST SINGLE VIEW STAT 12/21/2020 6:30 AM CDT HC MAGNESIUM Routine 12/21/2020 4:40 AM CDT HC CBC,AUTOMATED Routine 12/21/2020 4:40 AM CDT HC BASIC METABOLIC PANEL Routine 12/21/2020 4:40 AM CDT POC GLUCOSE 12/20/2020 10:13 PM CDT POC GLUCOSE 12/20/2020 4:59 PM CDT LIMITED ECHO W/ CONTRAST MARLENA 12/20/2020 AND DOPPLER 2:00 PM CDT POC GLUCOSE 12/20/2020 11:04 AM CDT POC GLUCOSE 12/20/2020 8:12 AM CDT HC MAGNESIUM Routine 12/20/2020 5:05 AM CDT HC CBC,AUTOMATED Routine 12/20/2020 5:05 AM CDT HC BASIC METABOLIC PANEL Routine 12/20/2020 5:05 AM CDT POC GLUCOSE 12/19/2020 9:50 PM CDT POC GLUCOSE 12/19/2020 5:14 PM CDT CHEST SINGLE VIEW STAT 12/19/2020 3:37 PM CDT POC GLUCOSE 12/19/2020 1:00 PM CDT POC GLUCOSE 12/19/2020 7:36 AM CDT CHEST SINGLE VIEW Routine 12/19/2020 4:37 AM CDT HC MAGNESIUM Routine 12/19/2020 3:03 AM CDT HC BASIC METABOLIC PANEL Routine 12/19/2020 3:03 AM CDT HC CBC,AUTOMATED Routine 12/19/2020 3:03 AM CDT POC GLUCOSE 12/18/2020 9:12 PM CDT POC GLUCOSE 12/18/2020 5:20 PM CDT POC GLUCOSE 12/18/2020 3:59 PM CDT POC GLUCOSE 12/18/2020 10:57 AM CDT POC GLUCOSE 12/18/2020 7:57 AM CDT POC GLUCOSE 12/18/2020 7:01 AM CDT POC GLUCOSE 12/18/2020 4:54 AM CDT CHEST SINGLE VIEW Routine 12/18/2020 4:45 AM CDT HC OXYGEN SATURATION (O2 STAT 12/18/2020 SAT) 3:18 AM CDT HC MAGNESIUM Routine 12/18/2020 2:56 AM CDT HC BASIC METABOLIC PANEL Routine 12/18/2020 2:56 AM CDT HC CBC,AUTOMATED Routine 12/18/2020 2:56 AM CDT POC GLUCOSE 12/18/2020 2:53 AM CDT POC GLUCOSE 12/18/2020 1:09 AM CDT POC GLUCOSE 12/17/2020 10:53 PM CDT POC GLUCOSE 12/17/2020 8:50 PM CDT POC GLUCOSE 12/17/2020 6:47 PM CDT HC BLOOD Routine 12/17/2020 GASES;(CALCULATED 02) 6:46 PM CDT POC GLUCOSE 12/17/2020 5:43 PM CDT HC BLOOD STAT 12/17/2020 GASES;(CALCULATED 02) 5:40 PM CDT HC OXYGEN SATURATION (O2 Routine 12/17/2020 SAT) 3:50 PM CDT HC BLOOD STAT 12/17/2020 GASES;(CALCULATED 02) 3:50 PM CDT BASIC METABOLIC PANEL STAT 12/17/2020 3:50 PM CDT CBC STAT 12/17/2020 3:50 PM CDT POC GLUCOSE 12/17/2020 3:15 PM CDT THROMBOENDARTERECTOMY 12/17/2020 Ischemic leg SUPERFICIAL FEMORAL 1:14 PM CDT ARTERY WITH/ WITHOUT GRAFT POC GLUCOSE 12/17/2020 12:52 PM CDT US DOPPLER ART LE RIGHT STAT 12/17/2020 12:25 PM CDT POC GLUCOSE 12/17/2020 11:00 AM CDT HC OXYGEN SATURATION (O2 STAT 12/17/2020 SAT) 9:17 AM CDT POC GLUCOSE 12/17/2020 9:14 AM CDT POC GLUCOSE 12/17/2020 8:12 AM CDT POC GLUCOSE 12/17/2020 6:52 AM CDT POC GLUCOSE 12/17/2020 5:48 AM CDT POC GLUCOSE 12/17/2020 4:51 AM CDT CHEST SINGLE VIEW Routine 12/17/2020 4:25 AM CDT ECG 12-LEAD Routine 12/17/2020 4:00 AM CDT POC GLUCOSE 12/17/2020 3:53 AM CDT POC GLUCOSE 12/17/2020 3:09 AM CDT HC OXYGEN SATURATION (O2 Routine 12/17/2020 SAT) 2:14 AM CDT HC BLOOD Routine 12/17/2020 GASES;(CALCULATED 02) 2:14 AM CDT HC MAGNESIUM Routine 12/17/2020 2:14 AM CDT HC BASIC METABOLIC PANEL Routine 12/17/2020 2:14 AM CDT HC CBC,AUTOMATED Routine 12/17/2020 2:14 AM CDT POC GLUCOSE 12/17/2020 1:51 AM CDT POC GLUCOSE 12/17/2020 12:52 AM CDT POC GLUCOSE 12/16/2020 10:53 PM CDT POC GLUCOSE 12/16/2020 9:57 PM CDT POC GLUCOSE 12/16/2020 9:06 PM CDT POC GLUCOSE 12/16/2020 7:50 PM CDT POC GLUCOSE 12/16/2020 6:46 PM CDT POC GLUCOSE 12/16/2020 4:56 PM CDT POTASSIUM Routine 12/16/2020 4:55 PM CDT POC GLUCOSE 12/16/2020 4:05 PM CDT POC GLUCOSE 12/16/2020 2:59 PM CDT HC OXYGEN SATURATION (O2 Routine 12/16/2020 SAT) 1:33 PM CDT HC BLOOD GAS, POC 12/16/2020 1:13 PM CDT POC GLUCOSE 12/16/2020 1:13 PM CDT HC SODIUM, POC 12/16/2020 12:42 PM CDT HC POTASSIUM, POC 12/16/2020 12:42 PM CDT HC HEMATOCRIT POC 12/16/2020 12:42 PM CDT HC BLOOD GAS, POC 12/16/2020 12:42 PM CDT POC GLUCOSE 12/16/2020 12:37 PM CDT LINE PLCMT 1V CXR STAT 12/16/2020 12:30 PM CDT HC MAGNESIUM STAT 12/16/2020 12:30 PM CDT HC PTT(APTT) STAT 12/16/2020 12:30 PM CDT HC PT(INR) STAT 12/16/2020 12:30 PM CDT HC BASIC METABOLIC PANEL STAT 12/16/2020 12:30 PM CDT CBC STAT 12/16/2020 12:30 PM CDT ECG 12-LEAD STAT 12/16/2020 12:21 PM CDT ACTIVATED CLOTTING TIME 12/16/2020 HMS 11:17 AM CDT HC IONIZED CA, POC 12/16/2020 11:17 AM CDT HC SODIUM, POC 12/16/2020 11:17 AM CDT HC POTASSIUM, POC 12/16/2020 11:17 AM CDT HC HEMATOCRIT POC 12/16/2020 11:17 AM CDT HC BLOOD GAS, POC 12/16/2020 11:17 AM CDT POC GLUCOSE 12/16/2020 11:15 AM CDT HC IONIZED CA, POC 12/16/2020 10:51 AM CDT HC SODIUM, POC 12/16/2020 10:51 AM CDT HC POTASSIUM, POC 12/16/2020 10:51 AM CDT HC HEMATOCRIT POC 12/16/2020 10:51 AM CDT HC BLOOD GAS, POC 12/16/2020 10:51 AM CDT ACTIVATED CLOTTING TIME 12/16/2020 [facility] 10:50 AM CDT POC GLUCOSE 12/16/2020 10:48 AM CDT HC IONIZED CA, POC 12/16/2020 10:17 AM CDT HC SODIUM, POC 12/16/2020 10:17 AM CDT HC POTASSIUM, POC 12/16/2020 10:17 AM CDT HC HEMATOCRIT POC 12/16/2020 10:17 AM CDT HC BLOOD GAS, POC 12/16/2020 10:17 AM CDT ACTIVATED CLOTTING TIME 12/16/2020 HMS 10:16 AM CDT POC GLUCOSE 12/16/2020 10:15 AM CDT ANESTHESIA ARTERIAL LINE Routine 12/16/2020 INSERTION 9:33 AM CDT ACTIVATED CLOTTING TIME 12/16/2020 HMS 9:28 AM CDT POC GLUCOSE 12/16/2020 9:26 AM CDT ANESTHESIA Routine 12/16/2020 TRANSEESOPHAGEAL 8:34 AM CDT ECHOCARDIOGRAM ANESTHESIA PULMONARY Routine 12/16/2020 ARTERY CATHETER INSERTION 8:33 AM CDT ANESTHESIA CENTRAL LINE Routine 12/16/2020 INSERTION 8:32 AM CDT HC IONIZED CA, POC 12/16/2020 8:07 AM CDT HC SODIUM, POC 12/16/2020 8:07 AM CDT HC POTASSIUM, POC 12/16/2020 8:07 AM CDT HC HEMATOCRIT POC 12/16/2020 8:07 AM CDT HC BLOOD GAS, POC 12/16/2020 8:07 AM CDT BASELINE ACTIVATED 12/16/2020 CLOTTING TIME HMS 8:06 AM CDT POC GLUCOSE 12/16/2020 8:04 AM CDT CORONARY ARTERY BYPASS 12/16/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 - 3 7:21 AM CDT of [place] art nanci of GRAFTS [place] heart with stable angina pectoris (HCC) POC GLUCOSE 12/16/2020 6:34 AM CDT HC PTT(APTT) Routine 12/16/2020 5:33 AM CDT HC PT(INR) Routine 12/16/2020 5:33 AM CDT HC COMPREHENSIVE Routine 12/16/2020 METABOLIC PANEL 5:33 AM CDT HC CBC W/ AUTOMATED DIFF Routine 12/16/2020 5:33 AM CDT HC PTT(APTT) STAT 12/15/2020 6:47 PM CDT POC GLUCOSE 12/15/2020 5:05 PM CDT HC PTT(APTT) STAT 12/15/2020 1:26 PM CDT POC GLUCOSE 12/15/2020 10:[address] CHEST WO CONTRAST Routine 12/15/2020 10:31 AM CDT POC GLUCOSE 12/15/2020 8:00 AM CDT HC ABO GROUP Routine 12/15/2020 4:39 AM CDT HC PTT(APTT) Routine 12/15/2020 4:39 AM CDT HC PT(INR) Routine 12/15/2020 4:39 AM CDT HC COMPREHENSIVE Routine 12/15/2020 METABOLIC PANEL 4:39 AM CDT HC CBC W/ AUTOMATED DIFF Routine 12/15/2020 4:39 AM CDT ECG-SCAN 12/15/2020 12:00 AM CDT POC GLUCOSE 12/14/2020 10:25 PM CDT HC PTT(APTT) STAT 12/14/2020 10:00 PM CDT CONSULT IV THERAPY TEAM Routine 12/14/2020 9:43 PM CDT POC GLUCOSE 12/14/2020 5:14 PM CDT HC PTT(APTT) STAT 12/14/2020 2:10 PM CDT POC GLUCOSE 12/14/2020 11:24 AM CDT POC GLUCOSE 12/14/2020 7:27 AM CDT HC PTT(APTT) Routine 12/14/2020 4:12 AM CDT HC PT(INR) Routine 12/14/2020 4:12 AM CDT HC COMPREHENSIVE Routine 12/14/2020 METABOLIC PANEL 4:12 AM CDT HC CBC W/ AUTOMATED DIFF Routine 12/14/2020 4:12 AM CDT POC GLUCOSE 12/13/2020 9:37 PM CDT POC GLUCOSE 12/13/2020 5:14 PM CDT 2D ECHO ONLY W/ CONTRAST Routine 12/13/2020 4:49 PM CDT POC GLUCOSE 12/13/2020 11:47 AM CDT VIABILITY STUDY (REST AND Routine 12/13/2020 4 HOUR DELAY) MPI REST 8:51 AM CDT TEST POC GLUCOSE 12/13/2020 7:11 AM CDT HC CBC,AUTOMATED 12/13/2020 4:06 AM CDT HC COMPREHENSIVE 12/13/2020 METABOLIC PANEL 4:06 AM CDT HC PTT(APTT) Routine 12/13/2020 4:06 AM CDT HC PT(INR) Routine 12/13/2020 4:06 AM CDT POC GLUCOSE 12/12/2020 9:48 PM CDT POC GLUCOSE 12/12/2020 5:09 PM CDT POC GLUCOSE 12/12/2020 12:30 PM CDT POC GLUCOSE 12/12/2020 7:32 AM CDT HC TROPONIN-I Routine 12/12/2020 4:00 AM CDT HC COMPREHENSIVE Routine 12/12/2020 METABOLIC PANEL 4:00 AM CDT HC CBC W/ AUTOMATED DIFF Routine 12/12/2020 4:00 AM CDT HC PTT(APTT) Routine 12/12/2020 4:00 AM CDT HC PT(INR) Routine 12/12/2020 4:00 AM CDT POC GLUCOSE 12/11/2020 9:47 PM CDT HC PTT(APTT) STAT 12/11/2020 8:13 PM CDT POC GLUCOSE 12/11/2020 5:09 PM CDT ECG 12-LEAD Routine 12/11/2020 12:46 PM CDT HC PTT(APTT) STAT 12/11/2020 12:30 PM CDT HC B-TYPE NATRIURETIC STAT 12/11/2020 PEPTIDE 12:30 PM CDT POC GLUCOSE 12/11/2020 11:20 AM CDT POC GLUCOSE 12/11/2020 7:36 AM CDT HC COMPREHENSIVE Routine 12/11/2020 METABOLIC PANEL 4:10 AM CDT HC PTT(APTT) Routine 12/11/2020 4:10 AM CDT HC PT(INR) Routine 12/11/2020 4:10 AM CDT HC CBC W/ AUTOMATED DIFF Routine 12/11/2020 4:10 AM CDT POC GLUCOSE 12/10/2020 9:50 PM CDT POC GLUCOSE 12/10/2020 5:01 PM CDT PV CAROTID ARTERY DUPLEX Routine 12/10/2020 SCAN 11:53 AM CDT POC GLUCOSE 12/10/2020 11:44 AM CDT VENOUS LE COMPLETE Routine 12/10/2020 11:39 AM CDT 2D + DOPPLER ECHO W/ STAT 12/10/2020 CONTRAST 10:19 AM CDT POC GLUCOSE 12/10/2020 7:22 AM CDT HC COMPREHENSIVE Routine 12/10/2020 METABOLIC PANEL 4:06 AM CDT HC PTT(APTT) Routine 12/10/2020 4:06 AM CDT HC PT(INR) Routine 12/10/2020 4:06 AM CDT HC CBC W/ AUTOMATED DIFF Routine 12/10/2020 4:06 AM CDT POC GLUCOSE 12/09/2020 9:49 PM CDT POC GLUCOSE 12/09/2020 5:05 PM CDT POC GLUCOSE 12/09/2020 11:45 AM CDT POC GLUCOSE 12/09/2020 8:02 AM CDT HC TROPONIN-I Routine 12/09/2020 4:41 AM CDT HC COMPREHENSIVE Routine 12/09/2020 METABOLIC PANEL 4:41 AM CDT HC PTT(APTT) Routine 12/09/2020 4:41 AM CDT HC PT(INR) Routine 12/09/2020 4:41 AM CDT HC CBC W/ AUTOMATED DIFF Routine 12/09/2020 4:41 AM CDT POC GLUCOSE 12/08/2020 10:20 PM CDT POC GLUCOSE 12/08/2020 5:52 PM CDT TROPONIN-I STAT 12/08/2020 3:36 AM CDT HC Routine 12/08/2020 LIPID-5:CHOL/TRG/HDL/LDL+ 3:36 AM CDT VLDL HC COMPREHENSIVE Routine 12/08/2020 METABOLIC PANEL 3:36 AM CDT HC PTT(APTT) Routine 12/08/2020 3:36 AM CDT HC PT(INR) Routine 12/08/2020 3:36 AM CDT HC CBC W/ AUTOMATED DIFF Routine 12/08/2020 3:36 AM CDT HC TROPONIN-I STAT 12/08/2020 12:01 AM CDT PANOREX EXAM Routine 12/07/2020 10:46 PM CDT HC PTT(APTT) STAT 12/07/2020 10:23 PM CDT TROPONIN-I STAT 12/07/2020 8:40 PM CDT BEDSIDE PFT Routine 12/07/2020 7:11 PM CDT CHEST SINGLE VIEW STAT 12/07/2020 3:55 PM CDT HC BLOOD TYPING, ABO Routine 12/07/2020 CONFIRM 91 3:44 PM CDT POC GLUCOSE 12/07/2020 3:25 PM CDT TYPE & CROSSMATCH STAT 12/07/2020 3:19 PM CDT URINALYSIS, MICROSCOPIC 12/07/2020 3:19 PM CDT HC URINALYSIS, AUTO W 12/07/2020 MICRO 3:19 PM CDT HC TSH SCREEN 12/07/2020 3:19 PM CDT HC TROPONIN-I 12/07/2020 3:19 PM CDT HC PTT(APTT) 12/07/2020 3:19 PM CDT HC PT(INR) 12/07/2020 3:19 PM CDT HC CBC W/ AUTOMATED DIFF 12/07/2020 3:19 PM CDT HC HEMOGLOBIN A1C 12/07/2020 3:19 PM CDT HC COMPREHENSIVE 12/07/2020 METABOLIC PANEL 3:19 PM CDT HC LACTIC ACID - BG 12/07/2020 SYRINGE 3:19 PM CDT ECG 12-LEAD STAT 12/07/2020 2:44 PM CDT TELEMETRY STRIPS-SCAN 12/07/2020 12:00 AM CDT PROCEDURE RECORD-SCAN 12/07/2020 12:00 AM CDT TELEMETRY STRIPS-SCAN 12/07/2020 12:00 AM CDT TELEMETRY STRIPS-SCAN 12/07/2020 12:00 AM CDT TELEMETRY STRIPS-SCAN 12/07/2020 12:00 AM CDT TELEMETRY STRIPS-SCAN 12/07/2020 12:00 AM CDT TELEMETRY STRIPS-SCAN 12/07/2020 12:00 AM CDT TELEMETRY STRIPS-SCAN 12/07/2020 12:00 AM CDT TELEMETRY STRIPS-SCAN 12/07/2020 12:00 AM CDT TELEMETRY STRIPS-SCAN 12/07/2020 12:00 AM CDT TELEMETRY STRIPS-SCAN 12/07/2020 12:00 AM CDT TELEMETRY STRIPS-SCAN 12/07/2020 12:00 AM CDT TELEMETRY STRIPS-SCAN 12/07/2020 12:00 AM CDT TELEMETRY STRIPS-SCAN 12/07/2020 12:00 AM CDT ECG-SCAN 12/07/2020 12:00 AM CDT TELEMETRY STRIPS-SCAN 12/07/2020 12:00 AM CDT TELEMETRY STRIPS-SCAN 12/07/2020 12:00 AM CDT TELEMETRY STRIPS-SCAN 12/07/2020 12:00 AM CDT TELEMETRY STRIPS-SCAN 12/07/2020 12:00 AM CDT TELEMETRY STRIPS-SCAN 12/07/2020 12:00 AM CDT TELEMETRY STRIPS-SCAN 12/07/2020 12:00 AM CDT TELEMETRY STRIPS-SCAN 12/07/2020 12:00 AM CDT TELEMETRY STRIPS-SCAN 12/07/2020 12:00 AM CDT TELEMETRY STRIPS-SCAN 12/07/2020 12:00 AM CDT TELEMETRY STRIPS-SCAN 12/07/2020 12:00 AM CDT TELEMETRY STRIPS-SCAN 12/07/2020 12:00 AM CDT TELEMETRY STRIPS-SCAN 12/07/2020 12:00 AM CDT TELEMETRY STRIPS-SCAN 12/07/2020 12:00 AM CDT TELEMETRY STRIPS-SCAN 12/07/2020 12:00 AM CDT TELEMETRY STRIPS-SCAN 12/07/2020 12:00 AM CDT TELEMETRY STRIPS-SCAN 12/07/2020 12:00 AM CDT TELEMETRY STRIPS-SCAN 12/07/2020 12:00 AM CDT TELEMETRY STRIPS-SCAN 12/07/2020 12:00 AM CDT TELEMETRY STRIPS-SCAN 12/07/2020 12:00 AM CDT TELEMETRY STRIPS-SCAN 12/07/2020 12:00 AM CDT ECG-SCAN 12/07/2020 12:00 AM CDT TELEMETRY STRIPS-SCAN 12/07/2020 12:00 AM CDT ECG-SCAN 12/07/2020 12:00 AM CDT PROCEDURE RECORD-SCAN 12/07/2020 12:00 AM CDT TELEMETRY STRIPS-SCAN 12/07/2020 12:00 AM CDT TELEMETRY STRIPS-SCAN 12/07/2020 12:00 AM CDT TELEMETRY STRIPS-SCAN 12/07/2020 12:00 AM CDT TELEMETRY STRIPS-SCAN 12/07/2020 12:00 AM CDT TELEMETRY STRIPS-SCAN 12/07/2020 12:00 AM CDT TELEMETRY STRIPS-SCAN 12/07/2020 12:00 AM CDT TELEMETRY STRIPS-SCAN 12/07/2020 12:00 AM CDT TELEMETRY STRIPS-SCAN 12/07/2020 12:00 AM CDT TELEMETRY STRIPS-SCAN 12/07/2020 12:00 AM CDT TELEMETRY STRIPS-SCAN 12/07/2020 12:00 AM CDT TELEMETRY STRIPS-SCAN 12/07/2020 12:00 AM CDT TELEMETRY STRIPS-SCAN 12/07/2020 12:00 AM CDT TELEMETRY STRIPS-SCAN 12/07/2020 12:00 AM CDT TELEMETRY STRIPS-SCAN 12/07/2020 12:00 AM CDT TELEMETRY STRIPS-SCAN 12/07/2020 12:00 AM CDT TELEMETRY STRIPS-SCAN 12/07/2020 12:00 AM CDT TELEMETRY STRIPS-SCAN 12/07/2020 12:00 AM CDT TELEMETRY STRIPS-SCAN 12/07/2020 12:00 AM CDT TELEMETRY STRIPS-SCAN 12/07/2020 12:00 AM CDT TELEMETRY STRIPS-SCAN 12/07/2020 12:00 AM CDT TELEMETRY STRIPS-SCAN 12/07/2020 12:00 AM CDT ECG-SCAN 12/07/2020 12:00 AM CDT TELEMETRY STRIPS-SCAN 12/07/2020 12:00 AM CDT TELEMETRY STRIPS-SCAN 12/07/2020 12:00 AM CDT TELEMETRY STRIPS-SCAN 12/07/2020 12:00 AM CDT TELEMETRY STRIPS-SCAN 12/07/2020 12:00 AM CDT TELEMETRY STRIPS-SCAN 12/07/2020 12:00 AM CDT TELEMETRY STRIPS-SCAN 12/07/2020 12:00 AM CDT TELEMETRY STRIPS-SCAN 12/07/2020 12:00 AM CDT TELEMETRY STRIPS-SCAN 12/07/2020 12:00 AM CDT TELEMETRY STRIPS-SCAN 12/07/2020 12:00 AM CDT TELEMETRY STRIPS-SCAN 12/07/2020 12:00 AM CDT TELEMETRY STRIPS-SCAN 12/07/2020 12:00 AM CDT TELEMETRY STRIPS-SCAN 12/07/2020 12:00 AM CDT TELEMETRY STRIPS-SCAN 12/07/2020 12:00 AM CDT TELEMETRY STRIPS-SCAN 12/07/2020 12:00 AM CDT TELEMETRY STRIPS-SCAN 12/07/2020 12:00 AM CDT TELEMETRY STRIPS-SCAN 12/07/2020 12:00 AM CDT TELEMETRY STRIPS-SCAN 12/07/2020 12:00 AM CDT TELEMETRY STRIPS-SCAN 12/07/2020 12:00 AM CDT TELEMETRY STRIPS-SCAN 12/07/2020 12:00 AM CDT TELEMETRY STRIPS-SCAN 12/07/2020 12:00 AM CDT TELEMETRY STRIPS-SCAN 12/07/2020 12:00 AM CDT GENERAL RAD CHEST Routine 12/06/2020 EXTERNAL IMAGING 12:00 AM CDT from Last 3 Months Results * CHEST 2 VIEWS (01/08/2021 1:20 PM CDT) Only the most recent of 2 results within the time period is included. Specimen Impressions Performed At Mild elevation of left hemidiaphragm with small left pleural effusion and mild [facility] RES[facility] bibasilar atelectasis. Finalized by Sandy Hidalgo M.D. on 01/08/2021 2:29 PM. Dictated by Sandy Hidalgo M.D. on 01/08/2021 2:24 PM. Narrative Performed At CHEST 2 VIEWS [facility] INDICATION: s/p CABG 12/16/20 COMPARISON STUDY: December 25, 2020. FINDINGS: Lungs/Pleura: Mild elevation of left he midiaphragm. Persistent small left pleural effusion and mild bibasilar ate lectasis. No pneumothorax. Heart and Mediastinum: The cardiomedias tinal silhouette is stable. Prior median sternotomy. Skeletal structures: Thoracic spondylos is. Procedure Note Interface, Radiant Results - 01/08/2021 2:32 PM CDT CHEST 2 VIEWS INDICATION: s/p CABG 12/16/20 COMPARISON STUDY: December 25, 2020. FINDINGS: Lungs/Pleura: Mild elevation of left hemidiaphragm. Persistent small left pleural effusion and mild bibasilar atelectasis. No pneumothorax. Heart and Mediastinum: The cardiomediastinal silhouette is stable. Prior median sternotomy. Skeletal structures: Thoracic spondylosis. IMPRESSION Mild elevation of left hemidiaphragm with small left pleural effusion and mild bibasilar atelectasis. Finalized by Sandy Hidalgo M.D. on 01/08/2021 2:29 PM. Dictated by Sandy Hidalgo M.D. on 01/08/2021 2:24 PM. Performing Organization Address City/State/ZIP Code P narendra Number [facility] RES[facility] * ECG-SCAN (01/08/2021 12:00 AM CDT) Narrative Performed At This result has an attachment that is n ot available. Ordered by an unspecified provider. * REMOTE WEARABLE CARDIOVERTER-DEFIBRILLATOR ([facility]EST) INTERROGATION (12/26/2020 5:23 AM CDT) Specimen Narrative Performed At OTHER OUTSIDE LAB [12/26/2020 5:24:12 AM - [facility]] [facility] Baseline download received, no treatment events noted. Routed to Dr. Thompson for co-signature. Valente continue to monitor. See scanned HRM Data Sheet for report amos zamorano. __ Performing Organization Address City/State/ZIP Code P narendra Number OTHER OUTSIDE LAB * POC GLUCOSE (12/25/2020 7:48 AM CDT) Only the most recent of 96 results within the time period is included. Glucose, POC 130 (H) 70 - 100 MG/DL [facility] Specimen Performing Organization Address City/State/ZIP Code P narendra Number [facility] [address] [place] [address] * CHEST SINGLE VIEW (12/25/2020 6:35 AM CDT) Only the most recent of 9 results within the time period is included. Specimen Impressions Performed At Persistent small left pleural effusion and left great er than right basilar [facility] opacities, likely atelectasis. Finalized by Sandy Hidalgo M.D. on 7:32 AM. Dictated by Sandy Hidalgo M.D. on 12/25/2020 7:30 AM. Narrative Performed At CHEST SINGLE VIEW [facility] INDICATION: post-op atelectasis, effusi on COMPARISON STUDY: December 24, 2020. FINDINGS: Lungs/Pleura: Low lung volumes. Persist ent small left pleural effusion and left greater than right basilar opacities. N o pneumothorax. Heart and Mediastinum: The cardiomedias tinal silhouette is stable. Prior median sternotomy. Procedure Note Interface, Radiant Results - 12/25/2020 7:35 AM CDT CHEST SINGLE VIEW INDICATION: post-op atelectasis, effusion COMPARISON STUDY: December 24, 2020. FINDINGS: Lungs/Pleura: Low lung volumes. Persistent small left pleural effusion and left greater than right basilar opacities. No pneumothorax. Heart and Mediastinum: The cardiomediastinal silhouette is stable. Prior median sternotomy. IMPRESSION Persistent small left pleural effusion and left greater than right basilar opacities, likely atelectasis. Finalized by Sandy Hidalgo M.D. on 12/25/2020 7:32 AM. Dictated by Sandy Hidalgo M.D. on 12/25/2020 7:30 AM. Performing Organization Address City/[facility]/ZIP Code P narendra Number [facility] * CBC (12/25/2020 5:58 AM CDT) Only the most recent of 12 results within the time period is included. White Blood 8.9 4.5 - 11.0 K/UL [facility] Cells RBC 3.44 (L) 4.0 - 5.0 M/UL [facility] Hemoglobin 10.7 (L) 12.0 - 15.0 GM/DL [facility] Hematocrit 32.1 (L) 36 - 45 % [facility] MCV 93.4 80 - 100 FL [facility] MCH 31.2 26 - 34 PG [facility] MCHC 33.4 32.0 - 36.0 G/DL [facility] RDW 16.3 (H) 11 - 15 % [facility] Platelet Count 316 150 - 400 K/UL [facility] MPV 7.0 7 - 11 FL [facility] Specimen Performing Organization Address [facility] P narendra Number [facility] [address] [place] [address] * MAGNESIUM (12/25/2020 5:58 AM CDT) Only the most recent of 10 results within the time period is included. Magnesium 2.0 1.6 - 2.6 mg/dL [facility] Specimen Performing Organization Address [facility] P narendra Number [facility] [address] [place] [address] * BASIC METABOLIC PANEL (12/25/2020 5:58 AM CDT) Only the most recent of 11 results within the time period is included. Sodium 139 137 - 147 MMOL/L [facility] Potassium 4.2 3.5 - 5.1 MMOL/L [facility] Chloride 102 98 - 110 MMOL/L [facility] CO2 28 21 - 30 MMOL/L [facility] Anion Gap 9 3 - 12 [facility] Glucose 135 (H) 70 - 100 MG/DL [facility] Blood Urea 14 7 - 25 MG/DL [facility] Nitrogen Creatinine 0.77 0.4 - 1.00 MG/DL [facility] Calcium 9.1 8.5 - 10.6 MG/DL [facility] eGFR Non >60 >60 mL/min [facility] Comment: Swedish The eGFR is not validated f or use in drug dosing adjustments. Continue to use estimated creatinine clearance per dosing reference text. Please contact the Clinical Pharmacist for questions. eGFR >60 >60 mL/min [facility] Swedish Comment: The eGFR is not validated for use in drug dosing adjustments. Continue to use estimated creatinine clearance per dosing reference text. Please contact the Clinical Pharmacist for questions. Specimen Performing Organization Address City/State/ZIP Code P narendra Number [facility] [address] [place] [address] * LIMITED ECHO (12/20/2020 2:00 PM CDT) Only the most recent of 2 results within the time period is included. Left Ventricle 240.00 46 - 106 mL OTHER OUTSIDE Diastolic LAB Volume Left Ventricle 146 29 - 61 mL OTHER OUTSIDE Diastolic LAB Volume Index Left Ventricle 179.00 14 - 42 mL OTHER OUTSIDE Systolic Volume LAB Left Ventricle 109 8 - 24 mL OTHER OUTSIDE Systolic Volume LAB Index Right 2.47 1.9 - 3.5 cm OTHER OUTSIDE Ventricular Mid LAB Diameter LA volume 49.37 22 - 52 mL OTHER OUTSIDE LAB Right Atrial 12.43 <18 cm2 OTHER OUTSIDE Area LAB Right Atrial 4.24 2.2 - 2.8 cm OTHER OUTSIDE Major Dimension LAB Right 3.88 2.5 - 4.1 cm OTHER OUTSIDE Ventricular LAB Basal Diameter Right Heart 0.07 m/s OTHER OUTSIDE Systolic TDI S' LAB Right Heart 0.71 >1.7 cm OTHER OUTSIDE Systolic Mmode LAB TAPSE BSA 1.64 m2 OTHER OUTSIDE LAB CV ECHO PV Priscialla, RDCS OTHER OUTSIDE SHEET MUSIC SALESPERSON LAB Left Atrium 30.10 16 - 34 OTHER OUTSIDE Index LAB Cardiology Siemens AH0065 OTHER OUTSIDE Ultrasound LAB Machine QUIÑONES'S 25 % OTHER OUTSIDE BIPLANE EF LAB ECHO EF 25 % OTHER OUTSIDE LAB Specimen Narrative Performed At OTHER OUTSIDE LAB Severely dilated left ventricle with se verely reduced systolic function. The calculated ejection fraction is 25% . There are segmental wall motion abnormalities, as coded in the diagram below. The right ventricular size is normal wi th mildly reduced systolic function. Normal biatrial size No major valvular abnormalities on limi aleksandar views of interrogation. No pericardial effusion There were no major changes compared wi th prior study on 12/13/2020. Performing Organization Address City/[facility]/ZIP Code P narendra Number OTHER OUTSIDE LAB * O2 SATURATION, MIXED VENOUS (12/18/2020 3:18 AM CDT) Only the most recent of 5 results within the time period is included. [id number] 55.4 % [facility] Venous Specimen Blood Performing Organization Address City/[facility] P narendra Number MAIN LAB [address] [place] [address] * BLOOD GASES, ARTERIAL (12/17/2020 6:46 PM CDT) Only the most recent of 4 results within the time period is included. pH-Arterial 7.38 7.35 - 7.45 [facility] pCO2-Arterial 36 35 - 45 MMHG [facility] pO2-Arterial 131 (H) 80 - 100 MMHG [facility] Base 3.8 MMOL/L [facility] Deficit-Arteria l O2 Sat-Arterial 98.8 95 - 99 % [facility] Bicarbonate-ART 21.2 21 - 28 MMOL/L [facility] -[place] Specimen Blood, arterial - Blood Performing Organization Address [facility] P narendra Number [facility] [address] [place] [address] * US DOPPLER ART LE RIGHT (12/17/2020 12:25 PM CDT) Specimen Right Impressions Performed At 1. Acute occlusive thrombus extending from the popliteal artery into the right [facility] posterior tibial and peroneal arteries. There is trickle flow in the right anterior tibial and dorsalis pedis angelito rolf. 2. Small right groin hematoma. These findings were messaged to Mildred reeves by Dr. Moeller at 12:30 on 12/17/2020 on Voalte. Finalized by Matt Orozco on 12/17/2020 12:31 PM. Dictated by Gifty Moeller M.D. on 7/13/20 21 12:25 PM. Narrative Performed At RIGHT LOWER EXTREMITY ARTERIAL DOPPLER ULTRASOUND [facility] CLINICAL HISTORY: Intra-aortic balloon pump removal with Ibrahima to the foot. TECHNIQUE: Multiple grayscale, color Do ppler and spectral Doppler ultrasound images were obtained of the right lower extremity for evaluation of the peripheral arteries. COMPARISON: None available. FINDINGS: Right: Grayscale images demonstrate diffuse at herosclerotic plaque with acute occlusive thrombus extending from the popliteal a rtery into the right posterior tibial and peroneal arteries. There is a 2.7 cm he matoma in the right groin. Common femoral artery (BENCH MECHANIC): Patent wit h normal high resistive waveform Upper deep femoral artery: Patent with normal high resistive waveform Superficial femoral artery (SFA): Paten t with normal high resistive waveform Popliteal artery: Occlusive thrombus Anterior tibial artery (SYDNIE): Trickle f low with monophasic waveform Posterior tibial artery (SURGEON/PRESIDENT): Occlusiv e thrombus Peroneal artery: Occlusive thrombus Dorsalis pedis artery (DPA): Cervical f low with monophasic waveform Procedure Note Interface, Radiant Results - 12/17/2020 12:34 PM CDT RIGHT LOWER EXTREMITY ARTERIAL DOPPLER ULTRASOUND CLINICAL HISTORY: Intra-aortic balloon pump removal with Ibrahima to the foot. TECHNIQUE: Multiple grayscale, color Doppler and spectral Doppler ultrasound images were obtained of the right lower extremity for evaluation of the peripheral arteries. COMPARISON: None available. FINDINGS: Right: Grayscale images demonstrate diffuse atherosclerotic plaque with acute occlusive thrombus extending from the popliteal artery into the right posterior tibial and peroneal arteries. There is a 2.7 cm hematoma in the right groin. Common femoral artery (BENCH MECHANIC): Patent with normal high resistive waveform Upper deep femoral artery: Patent with normal high resistive waveform Superficial femoral artery (SFA): Patent with normal high resistive waveform Popliteal artery: Occlusive thrombus Anterior tibial artery (SYDNIE): Trickle flow with monophasic waveform Posterior tibial artery (SURGEON/PRESIDENT): Occlusive thrombus Peroneal artery: Occlusive thrombus Dorsalis pedis artery (DPA): Cervical flow with monophasic waveform IMPRESSION 1. Acute occlusive thrombus extending f rom the popliteal artery into the right posterior tibial and peroneal arteries. There is trickle flow in the right anterior tibial and dorsalis pedis arteries. 2. Small right groin hematoma. These findings were messaged to Mildred Bryson by Dr. Moeller at 12:30 on 12/17/2020 on Voalte. Finalized by Gifty Moeller M.D. on 12/17/2020 12:31 PM. Dictated by Gifty Moeller M.D. on 12/17/2020 12:25 PM. Performing Organization Address [facility] Code P narendra Number [facility] * POTASSIUM (12/16/2020 4:55 PM CDT) Potassium 4.4 3.5 - 5.1 MMOL/L [facility] Specimen Blood Performing Organization Address [facility] P narendra Number [facility] [address] [place] [address] * POC BLOOD GAS ARTERIAL (12/16/2020 1:13 PM CDT) Only the most recent of 6 results within the time period is included. PH-ART-POC 7.34 (L) 7.35 - 7.45 [facility] VGB1-QEH-RDK 39 35 - 45 MMHG [facility] PO2-ART-POC 143 (H) 80 - 100 MMHG MAIN LAB Base 4.0 MMOL/L MAIN LAB Def-ART-POC O2 Sat-ART-POC 99.0 95 - 99 % MAIN LAB Bicarbonate-ART 21.3 21 - 28 MMOL/L MAIN LAB -POC Specimen Performing Organization Address [place]/[facility] P narendra Number [facility] [address] [place] [address] * POC SODIUM (12/16/2020 12:42 PM CDT) Only the most recent of 5 results within the time period is included. Sodium-POC 143 137 - 147 MMOL/L [facility] Specimen Performing Organization Address [facility] P narendra Number [facility] [address] [place] [address] * POC POTASSIUM (12/16/2020 12:42 PM CDT) Only the most recent of 5 results within the time period is included. Potassium-POC 3.3 (L) 3.5 - 5.1 MMOL/L [facility] Specimen Performing Organization Address [facility] P narendra Number [facility] [address] [place] [address] * POC HEMATOCRIT (12/16/2020 12:42 PM CDT) Only the most recent of 5 results within the time period is included. Hemoglobin POC 9.5 (L) 12.0 - 15.0 GM/DL [facility] Hematocrit POC 28.0 (L) 36 - 45 % [facility] Specimen Performing Organization Address City/State/ZIP Code P narendra Number [facility] [address] [place] [address] * [facility] 1V CXR (12/16/2020 12:30 PM CDT) Specimen Impressions Performed At 1. Post CABG surgical changes as described above with vascular indistinction, [facility] likely pulmonary edema. 2. Small left pleural effusion and biba silar opacities, likely atelectasis. By my electronic signature, I attest th at I have personally reviewed the images for this examination and formulated the interpretations and opinions expressed in this report Finalized by Sandy Hidalgo M.D. on 05/2021 5:02 PM. Dictated by Ron Singh MD on 12/16/2020 1:11 PM. Narrative Performed At [facility] 1 CXR [facility] INDICATION: ET Tube and Line Placement. COMPARISON STUDY: Chest radiograph 2020 FINDINGS: Support Devices: ET tube terminates abo ve the level of the gemma. Gastric tube courses below level of diaphragm and te rminates out of view. Right IJ pulmonary artery catheter terminates over the pul monary outflow tract. Mediastinal and bilateral thoracostomy tubes. Tip of th e IABP overlies the proximal descending aorta. Lungs/Pleura: Mild hilar and vascular i ndistinction. Small left pleural effusion and bibasilar opacities. Heart and Mediastinum: Post CABG surgic al changes including median sternotomy wires and left USHA clips. Mildly enlarg ed heart. Procedure Note Interface, Radiant Results - 12/16/2020 5:05 PM CDT [facility] 1V CXR INDICATION: ET Tube and Line Placement. COMPARISON STUDY: Chest radiograph 12/07/2020 FINDINGS: Support Devices: ET tube terminates above the level of the gemma. Gastric tube courses below level of diaphragm and terminates out of view. Right IJ pulmonary artery catheter terminates over the pulmonary outflow tract. Mediastinal and bilateral thoracostomy tubes. Tip of the IABP overlies the proximal descending aorta. Lungs/Pleura: Mild hilar and vascular indistinction. Small left pleural effusion and bibasilar opacities. Heart and Mediastinum: Post CABG surgical changes including median sternotomy wires and left USHA clips. Mildly enlarged heart. IMPRESSION 1. Post CABG surgical changes as describ ed above with vascular indistinction, likely pulmonary edema. 2. Small left pleural effusion and bibas ilar opacities, likely atelectasis. By my electronic signature, I attest that I have personally reviewed the images for this examination and formulated the interpretations and opinions expressed in this report Finalized by Sandy Hidalgo M.D. on 12/16/2020 5:02 PM. Dictated by Ron Singh MD on 12/16/2020 1:11 PM. Performing Organization Address City/[facility]/ZIP Code P narendra Number [facility] * PTT (APTT) (12/16/2020 12:30 PM CDT) Only the most recent of 18 results within the time period is included. APTT 28.5 24.0 - 36.5 SEC MAIN LAB Specimen Blood Performing Organization Address [facility] P narendra Number MAIN LAB [address] [place] [address] * PROTIME INR (PT) (12/16/2020 12:30 PM CDT) Only the most recent of 11 results within the time period is included. INR 1.2 0.8 - 1.2 MAIN LAB Specimen Blood Performing Organization Address [facility] P narendra Number [facility] [address] [place] [address] * ACTIVATED CLOTTING TIME HMS (12/16/2020 11:17 AM CDT) Only the most recent of 4 results within the time period is included. Activated 145 s MAIN LAB Clotting Time HMS Specimen Performing Organization Address [facility] P narendra Number MAIN LAB [address] [place] [address] * POC IONIZED CALCIUM (12/16/2020 11:17 AM CDT) Only the most recent of 4 results within the time period is included. Ionized 1.27 1.0 - 1.3 MMOL/L MAIN LAB Calcium-POC Specimen Performing Organization Address City/State/ZIP Code P narendra Number MAIN LAB [address] [place] [address] * A-LINE INSERTION (12/16/2020 9:33 AM CDT) Narrative Performed At Cheryl Valle MD 12/16/2020 10:10 AM Anesthesia Procedure: Arterial Line Link cement A-LINE INSERTION Date/Time: 12/16/2020 7:12 AM Patient location: Pre/Post Indications: multiple ABGs, frequent la bs and hemodynamic monitoring Preprocedure checklist performed: 2 pat ient identifiers, risks & benefits discussed, patient evaluated, timeout p erformed, consent obtained, patient being monitored and sterile drape Sterile technique: - Proper hand washing - Cap, mask - Sterile gloves - Skin prep for antisepsis Arterial Line Procedure Patient sedated: yes (see MAR) Sedation type: midazolam and other (sit e localized with lidocaine); Artery prepped with chlorhexidine; skin prep agent completely dried prior to procedure. Location: radial artery Laterality: right Technique: ultrasound, palpation and an atomical landmarks Needle gauge: 20 G Number of attempts: 1 Procedure Medications Local Anesthesia: lidocaine PF 2% injec tion, 0.5 mL Procedure Outcome Catheter secured with adhesive dressing applied Events: no complications noted during i nsertion and skin intact, warm, and dry Observation: pt tolerated well Additional notes: [employer] Addendum I was present for the entire procedure and agree with the above. Cheryl Valle MD Performed by: Steve Verdugo CRNA Authorized by: Cheryl Valle MD * AIDAN (12/16/2020 8:34 AM CDT) Narrative Performed At Roc Marie MD 12/16/2020 1 2:32 PM Anesthesia Procedure: Transesophageal E chocardiogram AIDAN Date/Time: 12/16/2020 8:00 AM Associated procedure: CABG Preprocedure checklist performed: 2 pat ient identifiers, risks & benefits discussed, patient evaluated, timeout p erformed, consent obtained and patient being monitored Staff Anesthesiologist: Cheryl Valle MD Surgeon: Tab Patel MD Performed personally Indication for AIDAN: assessment of ascen ding aorta, assessment of surgical repair, defect repair evaluation, ventr icular function, confirmation of pre-procedure diagnosis and valvular as sessment Physician requesting echo: Jani Patel MD CPT codes: 98958 - AIDAN 2D imaging (w or w/o M-mode) including probe placement, image acquisition, interpret ation & report, 48843 - PWD and/or CWD f/u or limited study and 18245 - Co juany flow velocity mapping Patient location: OR Intubated: yes Bite block: yes Heart visualized: yes Insertion: easy Probe type: multiplane Modalities: 2D, color flow mapping, con tinuous wave Doppler, pulse wave Doppler and 3D Echocardiographic and Doppler Measureme nts Ventricular Findings Right Ventricle RV cavity size: normal RV hypertrophy: no RV thrombus: no RV global function: normal Left Ventricle LV cavity size: dilated LV cavity dimension: 5 cm LV hypertrophy: no LV wall thickness: 1.0 cm LV thrombus: no LV global function: severely impaire d LV ejection fraction: 10-15% Ventricular Wall Motion Four Chamber View Basal anterolateral: hypokinetic Basal inferoseptal: akinetic Mid anterolateral: hypokinetic Mid inferoseptal: akinetic Apical lateral: hypokinetic Apical septal: akinetic Two Chamber View Basal anterior: hypokinetic Basal inferior: akinetic Mid anterior: hypokinetic Mid inferior: akinetic Apical anterior: hypokinetic Apical inferior: akinetic Long [place] View Basal anteroseptal: hypokinetic Mid anteroseptal: akinetic Mid inferolateral: akinetic Apical lateral: akinetic Apical septal: hypokinetic [place]: akinetic Mid Short [place] View Mid anteroseptal: akinetic Mid anterior: hypokinetic Mid anterolateral: hypokinetic Mid inferolateral: hypokinetic Mid inferior: akinetic Mid inferoseptal: akinetic Valves Aortic Valve Annulus: normal Stenosis: none Peak gradient: 4 mmHg Mean gradient: 2 mmHg Regurgitation severity: none Leaflet morphology: normal Leaflet motion: normal Mitral Valve Annulus: normal Stenosis: none Regurgitation severity: mild Leaflet morphology: normal Leaflet motion: normal Tricuspid Valve Annulus: normal Stenosis: none Annulus measurement: 3 cm Regurgitation severity: trace Leaflet morphology: normal Leaflet motion: normal Pulmonic Valve Stenosis: none Regurgitation severity: trace regurg itation Aorta Ascending Aorta Size: normal Diameter: 3.3 cm Dissection: no Sinotubular Junction Size: normal Diameter: 2.3 cm Dissection: no Sinus of Valsalva Size: normal Diameter: 3.3 cm Dissection: no Dissection: no Atria Right Atrium Size: normal Left Atrium Size: normal Left atrial appendage size: normal Septa Intra-atrial septal morphology: normal Diastolic Function Diastolic dysfunction grade: I Early diastolic fillin Atrial contraction trans-mitral flow: 9 2 E/A ratio: 0.4 Deceleration time: 208 Other Findings Pericardium: normal Pleural effusion: none Pulmonary arteries: normal Pulmonary venous flow: normal Post Procedure Systolic anterior motion of the mitral valve: no Return to CPB for echo-related diagnosi s: no Aorta intact after decannulation: yes Post-procedure LVEF measured: yes; 20-2 5% Post-procedure RV dysfunction: none Post-procedure comments: POST-INTERVENT ION FINDINGS (RHYTHM: sinus, LBBB): The LV systolic function is improved wi th epinephrine 0.1mcg/kg/min support. The inferior, septal pittman are dyskinetic. The visually estimated EF is 20-25%. The ascending aorta is in tact and no dissection is seen following decannulation. Otherwise, fin dings are as above. Performed by: Cheryl Valle MD Authorized by: Cheryl Valle MD * PULMONARY ARTERY CATHETER INSERTION (12/16/2020 8:33 AM CDT) Narrative Performed At Cheryl Valle MD 12/16/2020 10:10 AM Anesthesia Procedure: Pulmonary Artery Catheter PULMONARY ARTERY CATHETER INSERTION Date/Time: 12/16/2020 7:47 AM This note is used in conjunction with t CVC Line Insertion note for additional details regarding the insert ion of a Pulmonary Artery Catheter: PA Catheter Insertion Procedure Catheter type: oximetric Insertion depth: 42 cm Events: none Performed by: Cheryl Valle MD Authorized by: Cheryl Valle MD * CENTRAL LINE INSERTION (12/16/2020 8:32 AM CDT) Narrative Performed At Cheryl Valle MD 12/16/2020 8:3 3 AM Anesthesia Procedure: Central Venous Ca theter Line CENTRAL LINE INSERTION Date/Time: 12/16/2020 7:41 AM Patient location: OR Indications: medications requiring CV a ccess, hemodynamic pressure monitoring and vascular access Preprocedure checklist performed: 2 pat ient identifiers, risks & benefits discussed, patient evaluated, timeout p erformed, consent obtained, patient being monitored and CVC bundle followed (proper hand washing, maximal sterile barrier technique with cap, meliton rile gown, sterile glove, sterile drape, and skin prep for antisepsis) CVC Line Insertion Procedure Skin prepped with chlorhexidine; skin p rep agent completely dried prior to procedure. Patient Position: Trendelenburg Location: internal jugular vein Laterality: right Vein identification: ultrasound guided Confirmation of venous placement prior to dilation of vein by: ultrasound Ultrasound image captured Number of attempts: 1 Successful placement: yes Patient sedated: yes Catheter: Catheter type: introducer placed usi ng standard wire through needle technique Catheter size: 9 Fr Procedure Outcome Post procedure: all ports aspirated, li ne sutured and dressing applied; Dressing: chlorhexidine impregnated spo nge and sterile occlusive dressing Events: none Observations: patient tolerated well Performed by: Cheryl Valle MD Authorized by: Cheryl Valle MD * BASELINE ACTIVATED CLOTTING TIME [facility] [place] (12/16/2020 8:06 AM CDT) Baseline 166 s [facility] Activated Clotting Time [facility] [place] Specimen Performing Organization Address City/State/ZIP Code P narendra Number [facility] [address] [place] [address] * CBC AND DIFF (12/16/2020 5:33 AM CDT) Only the most recent of 9 results within the time period is included. White Blood 8.2 4.5 - 11.0 K/UL [facility] Cells RBC 3.96 (L) 4.0 - 5.0 M/UL [facility] Hemoglobin 12.4 12.0 - 15.0 GM/DL [facility] Hematocrit 35.8 (L) 36 - 45 % [facility] MCV 90.5 80 - 100 FL [facility] MCH 31.4 26 - 34 PG [facility] MCHC 34.7 32.0 - 36.0 G/DL [facility] RDW 14.0 11 - 15 % [facility] Platelet Count 234 150 - 400 K/UL [facility] MPV 8.1 7 - 11 FL [facility] Neutrophils 55 41 - 77 % [facility] Lymphocytes 30 24 - 44 % [facility] Monocytes 11 4 - 12 % [facility] Eosinophils 3 0 - 5 % [facility] Basophils 1 0 - 2 % [facility] Absolute 4.50 1.8 - 7.0 K/UL [facility] Neutrophil Count Absolute Lymph 2.40 1.0 - 4.8 K/UL [facility] Count Absolute 0.90 (H) 0 - 0.80 K/UL [facility] Monocyte Count Absolute 0.30 0 - 0.45 K/UL [facility] Eosinophil Count Absolute 0.00 0 - 0.20 K/UL [facility] Basophil Count Specimen Blood Performing Organization Address City/State/ZIP Code P narendra Number [facility] [address] [place] [address] * COMPREHENSIVE METABOLIC PANEL (12/16/2020 5:33 AM CDT) Only the most recent of 10 results within the time period is included. Sodium 138 137 - 147 MMOL/L [facility] Potassium 3.8 3.5 - 5.1 MMOL/L [facility] Chloride 103 98 - 110 MMOL/L [facility] Glucose 149 (H) 70 - 100 MG/DL [facility] Blood Urea 17 7 - 25 MG/DL [facility] Nitrogen Creatinine 0.69 0.4 - 1.00 MG/DL [facility] Calcium 10.2 8.5 - 10.6 MG/DL [facility] Total Protein 6.8 6.0 - 8.0 G/DL [facility] Total Bilirubin 0.8 0.3 - 1.2 MG/DL [facility] Albumin 3.8 3.5 - 5.0 G/DL [facility] Alk Phosphatase 62 25 - 110 U/L [facility] AST (SGOT) 21 7 - 40 U/L [facility] CO2 24 21 - 30 MMOL/L [facility] ALT (SGPT) 14 7 - 56 U/L [facility] Anion Gap 11 3 - 12 [facility] eGFR Non >60 >60 mL/min [facility] Comment: Swedish The eGFR is not validated f or use in drug dosing adjustments. Continue to use estimated creatinine clearance per dosing reference text. Please contact the Clinical Pharmacist for questions. eGFR >60 >60 mL/min [facility] Swedish Comment: The eGFR is not validated for use in drug dosing adjustments. Continue to use estimated creatinine clearance per dosing reference text. Please contact the Clinical Pharmacist for questions. Specimen Blood Performing Organization Address City/State/ZIP Code P narendra Number [facility] [address] [place] [address] * CT CHEST WO CONTRAST (12/15/2020 10:31 AM CDT) Specimen Impressions Performed At 1. Dense coronary artery calcifications with normal h eart size. [facility] 2. Scattered pleural parenchymal scarri ng. No acute pulmonary abnormality. 3. Mild hepatic steatosis. 4. Small hiatal hernia. Finalized by Sunday Bragg MD on 11:25 AM. Dictated by Sunday Bragg MD on 12/15/2020 11:21 AM. Narrative Performed At CT CHEST [facility] Clinical Indication: 75 years old; pr eoperative evaluation for coronary artery bypass grafting. Technique: Multiple contiguous axial CT images were obtained through the chest without IV contrast. Post processing co endy and sagittal reconstruction images were made from the axial images. IV contrast: None. Comparison: Chest radiograph 12/07/2020 FINDINGS: Evaluation of the mediastinum and jagdish, including the vasculature and for lymphadenopathy, is limited without the use of IV contrast. Lower Neck: Unremarkable Lymph nodes: No supraclavicular, axilla ry, or mediastinal lymphadenopathy. Heart, Mediastinum, and Great Vessels: Heart size is normal with trace pericardial fluid. Dense coronary arter y and mild thoracic aortic calcifications. The great vessels are n ormal in caliber. Small hiatal hernia. Airway, Lungs and Pleura: Scattered ple ural parenchymal scarring. Small perifissural lymph nodes, best seen nelly ng the right minor fissure. No pneumothorax, pleural effusion, or foca l pneumonic consolidation. No suspicious pulmonary nodules. Central airways are unremarkable. Upper Abdomen: Gallbladder surgically a bsent. Mild hepatic steatosis. Chest Wall and Osseous Structures: No d estructive osseous lesions. Procedure Note Interface, Radiant Results - 12/15/2020 11:[address] CHEST Clinical Indication: 75 years old; preoperative evaluation for coronary artery bypass grafting. Technique: Multiple contiguous axial CT images were obtained through the chest without IV contrast. Post processing coronal and sagittal reconstruction images were made from the axial images. IV contrast: None. Comparison: Chest radiograph 12/07/2020 FINDINGS: Evaluation of the mediastinum and jagdish, including the vasculature and for lymphadenopathy, is limited without the use of IV contrast. Lower Neck: Unremarkable Lymph nodes: No supraclavicular, axillary, or mediastinal lymphadenopathy. Heart, Mediastinum, and Great Vessels: Heart size is normal with trace pericardial fluid. Dense coronary artery and mild thoracic aortic calcifications. The great vessels are normal in caliber. Small hiatal hernia. Airway, Lungs and Pleura: Scattered pleural parenchymal scarring. Small perifissural lymph nodes, best seen along the right minor fissure. No pneumothorax, pleural effusion, or focal pneumonic consolidation. No suspicious pulmonary nodules. Central airways are unremarkable. Upper Abdomen: Gallbladder surgically absent. Mild hepatic steatosis. Chest Wall and Osseous Structures: No destructive osseous lesions. IMPRESSION 1. Dense coronary artery calcifications with normal heart size. 2. Scattered pleural parenchymal scarrin g. No acute pulmonary abnormality. 3. Mild hepatic steatosis. 4. Small hiatal hernia. Finalized by Sunday Bragg MD on 12/15/2020 11:25 AM. Dictated by Sunday Bragg MD on 12/15/2020 11:21 AM. Performing Organization Address City/State/ZIP Code P narendra Number [facility] * TYPE & CROSSMATCH (12/15/2020 4:39 AM CDT) Only the most recent of 2 results within the time period is included. Units Ordered 4 [facility] Crossmatch 12/18/2020,2359 [facility] Expires Record Check FOUND [facility] ABO/RH(D) B POS [facility] Antibody Screen NEG [facility] Electronic YES [facility] Crossmatch Unit Number [id number] [facility] Blood Component RBC,ADSOL,LEUKO REDUCED [facility] Type Unit Division 00 [facility] Status OF Unit REL FROM ALLOC [facility] Transfusion OK TO TRANSFUSE [facility] Status Crossmatch COMPATIBLE,ELECTRONIC [facility] Result Unit Number [id number] [facility] Blood Component RBC,ADSOL,LEUKO REDUCED [facility] Type Unit Division 00 [facility] Status OF Unit REL FROM ALLOC [facility] Transfusion OK TO TRANSFUSE [facility] Status Crossmatch COMPATIBLE,ELECTRONIC [facility] Result Unit Number [id number] [facility] Blood Component RBC,ADSOL,LEUKO REDUCED [facility] Type Unit Division 00 [facility] Status OF Unit REL FROM ALLOC [facility] Transfusion OK TO TRANSFUSE [facility] Status Crossmatch COMPATIBLE,ELECTRONIC [facility] Result Unit Number [id number] [facility] Blood Component RBC,ADSOL,LEUKO REDUCED [facility] Type Unit Division 00 [facility] Status OF Unit REL FROM ALLOC MAIN LAB Transfusion OK TO TRANSFUSE [facility] Status Crossmatch COMPATIBLE,ELECTRONIC MAIN LAB Result Specimen Blood Performing Organization Address City/State/ZIP Code P narendra Number [facility] [address] [place] [address] * ECG-SCAN (12/15/2020 12:00 AM CDT) Narrative Performed At This result has an attachment that is n ot available. Ordered by an unspecified provider. * VIABILITY STUDY (REST AND 4 HOUR DELAY) MPI REST TEST (12/13/2020 8:51 AM CDT) Rest Dose 3.13 mCi OTHER OUTSIDE LAB CV NUCLEAR BMI 24.03 kg/m2 OTHER OUTSIDE LAB MPI EF 20 % OTHER OUTSIDE LAB LV volume 139 mL OTHER OUTSIDE LAB Study Number [id number] OTHER OUTSIDE LAB Nuclear In aggregate the current study OTHER OUTSIDE Cardiology is high risk in regards to LAB Mortality Risk predicted annual cardiovascular mortality rate. Specimen Narrative Performed At OTHER OUTSIDE LAB Nuclear Report Cardiology: [facility] are Division of Nuclear Cardiac Imaging Examination Report EXAMINATION: Resting and delayed (4 h our and/or 24 hour) [id number] Chloride single photon emission compute d tomography (SPECT) for myocardial perfusion and viability imaging. Date of Study: 12/12/20 Study#: [facility] Billing ID: [id number] Referring Physician: Requested by: Rhys Jacob PA-C BMI: 24.03 kg/m2 INDICATIONS FOR STUDY (HISTORY): Villafana ry artery disease, history of myocardial infarction and severe cardio myopathy. The patient is being evaluated prior to coronary bypass regan ting and viability assessment is requested. PROCEDURAL DETAILS: At rest approxima tely 3.13 mCi of [id number] Chloride was injected intravenously. Planar and gated tomographic images were obtained. Subsequently, four dorothea r and/or 24 hour planar and tomographic images were then acquired. Qualitative and quantitative polar coordinate mapping was also performed. The rest images were compared to the delay images. FINDINGS: Scintigraphic: Time 0, 4-hour and 24-ho ur images were acquired. Rotating raw images show reduced radiotracer act ivity in the septal, inferior and apical segments, without apparent signi ficant change between other acquisitions. Tomographic slices in 3 orthogonal imag ing planes demonstrate reduction in radiotracer activity in the septal infe rior and apical segments, but all segments retain viability. There did not appear to be substantial interval changes at 4-hour and 24-hour acquisitions. Regional Wall Thickening and Motion: Th ere is essentially absent motion and thickening involving the septal, in ferior and apical segments with otherwise severely reduced wall motion. There is preservation of thickening in the anterior, anterolater al and distal inferolateral segments. . Left Ventricular Ejection Fraction: 2 0 %. Left Ventricular End Diastolic Volume: 139 ml. SUMMARY/OPINION: This thallium viabilit y study shows preservation of viable myocardium throughout the heart, with relative reduction in tracer uptake involving the septal, inferior a nd apical segments. There is severely reduced LV systolic function w ith essentially akinetic septal, apical and inferior segments. The lef t ventricle is mildly dilated. In aggregate the current study is high risk in regards to predicted annual cardiovascular mortality rate. The study was read in conjunction with Dr. Clary Sherwood, CAP[facility], rn camp. Performing Organization Address City/[facility]/ZIP Code P narendra Number OTHER OUTSIDE LAB * TROPONIN-I (12/12/2020 4:00 AM CDT) Only the most recent of 6 results within the time period is included. Troponin-I 0.64 (H) 0.0 - 0.05 NG/ML [facility] Specimen Blood Performing Organization Address City/[facility]/ZIP [facility] P narendra Number [facility] [address] [place] [address] * BNP (B-TYPE NATRIURETIC PEPTI) (12/11/2020 12:30 PM CDT) B Type 976.0 (H) 0 - 100 PG/ML [facility] Natriuretic Peptide Specimen Blood Performing Organization Address [facility]/ZIP [facility] P narendra Number MAIN LAB [address] [place] [address] * PV CAROTID ARTERY DUPLEX SCAN (12/10/2020 11:53 AM CDT) LEFT CCA DIST 0.61 m/s OTHER OUTSIDE SYS LAB LEFT CCA DIST 0.15 m/s OTHER OUTSIDE MILLS LAB LEFT CCA PROX 0.74 m/s OTHER OUTSIDE SYS LAB LEFT CCA PROX 0.19 m/s OTHER OUTSIDE M[facility]S LAB LEFT ICA DIST 0.87 m/s OTHER OUTSIDE SYS LAB LEFT ICA DIST 0.32 m/s OTHER OUTSIDE M[place]S LAB LEFT ICA MID 1.00 m/s OTHER OUTSIDE SYS LAB LEFT ICA MID 0.30 m/s OTHER OUTSIDE M[place]S LAB LEFT ICA PROX 1.13 m/s OTHER OUTSIDE SYS LAB LEFT ICA PROX 0.41 m/s OTHER OUTSIDE [place]S LAB LEFT ECA SYS 0.87 m/s OTHER OUTSIDE LAB LEFT SUBCLAVIAN 0.66 m/s OTHER OUTSIDE SYS LAB LEFT VERTEBRAL 0.61 m/s OTHER OUTSIDE SYS LAB RIGHT CCA DIST 0.67 m/s OTHER OUTSIDE SYS LAB RIGHT CCA DIST 0.16 m/s OTHER OUTSIDE MILLS LAB RIGHT CCA PROX 0.60 m/s OTHER OUTSIDE SYS LAB RIGHT CCA PROX 0.16 m/s OTHER OUTSIDE MILLS LAB RIGHT ICA DIST 0.62 m/s OTHER OUTSIDE SYS LAB RIGHT ICA DIST 0.22 m/s OTHER OUTSIDE MILLS LAB RIGHT ICA MID 0.79 m/s OTHER OUTSIDE SYS LAB RIGHT ICA MID 0.20 m/s OTHER OUTSIDE MILLS LAB RIGHT ICA PROX 1.01 m/s OTHER OUTSIDE SYS LAB RIGHT ICA PROX 0.28 m/s OTHER OUTSIDE MILLS LAB RIGHT ECA SYS 1.32 m/s OTHER OUTSIDE LAB RIGHT 0.57 m/s OTHER OUTSIDE SUBCLAVIAN SYS LAB RIGHT VERTEBRAL 0.53 m/s OTHER OUTSIDE SYS LAB CV ECHO PV Turi Wiedner RVT OTHER OUTSIDE SHEET [employer] SALESPERSON LAB RIGHT ICA/CCA 1.5 m/s OTHER OUTSIDE SYS LAB LEFT ICA/CCA 1.9 m/s OTHER OUTSIDE SYS LAB Cardiology [facility] OTHER OUTSIDE Ultrasound LAB Machine Specimen Narrative Performed At OTHER OUTSIDE LAB 1. Mild atheromatous plaque visualized in bilateral common and internal carotid arteries 2. No hemodynamically significant (>50% ) stenosis measured in the common and internal carotid arteries bilateral ly, but some distal ICA tortuosity is noted. 3. There is normal antegrade flow in bi lateral vertebral arteries 4. No evidence of proximal subclavian s tenosis bilaterally No prior studies. Performing Organization Address City/State/ZIP Code P narendra Number OTHER OUTSIDE LAB * PV VEIN MAP ARTERIAL BYPASS GRAFT (12/10/2020 11:39 AM CDT) [facility] CV ECHO PV Manohari Dario RVT OTHER OUTSIDE SHEET [employer] SAL[employer]ERSON LAB Cardiology [facility] OTHER OUTSIDE Ultrasound LAB Machine RIGHT VEIN MAP 3.1 mm OTHER OUTSIDE GT SAPHENOUS AP LAB MID THIGH RIGHT VEIN MAP 3.0 mm OTHER OUTSIDE GT SAPHENOUS AP LAB DISTAL THIGH RIGHT VEIN MAP 2.4 mm OTHER OUTSIDE GT SAPHENOUS AP LAB KNEE RIGHT VEIN MAP 2.6 mm OTHER OUTSIDE GT SAPHENOUS AP LAB PROXIMAL CALF RIGHT VEIN MAP 1.6 mm OTHER OUTSIDE GT SAPHENOUS AP LAB MID CALF RIGHT VEIN MAP 1.3 mm OTHER OUTSIDE GT SAPHENOUS AP LAB DISTAL CALF RIGHT VEIN MAP 2.0 mm OTHER OUTSIDE GT SAPHENOUS AP LAB ANKLE RIGHT VEIN MAP 10.2 mm OTHER OUTSIDE GT SAPHENOUS AP LAB SAPHENOFEM JUNC RIGHT VEIN MAP 4.2 mm OTHER OUTSIDE GT SAPHENOUS AP LAB PROXIMAL THIGH LEFT VEIN MAP 6.8 mm OTHER OUTSIDE GT SAPHENOUS AP LAB SAPHENOFEM JUNC LEFT VEIN MAP 4.7 mm OTHER OUTSIDE GT SAPHENOUS AP LAB PROXIMAL THIGH LEFT VEIN MAP 1.8 mm OTHER OUTSIDE GT SAPHENOUS AP LAB MID THIGH LEFT VEIN MAP 1.6 mm OTHER OUTSIDE GT SAPHENOUS AP LAB DISTAL THIGH LEFT VEIN MAP 1.4 mm OTHER OUTSIDE GT SAPHENOUS AP LAB KNEE LEFT VEIN MAP 1.6 mm OTHER OUTSIDE GT SAPHENOUS AP LAB PROXIMAL CALF LEFT VEIN MAP 1.1 mm OTHER OUTSIDE GT SAPHENOUS AP LAB MID CALF LEFT VEIN MAP 2.1 mm OTHER OUTSIDE GT SAPHENOUS AP LAB DISTAL CALF LEFT VEIN MAP 1.3 mm OTHER OUTSIDE GT SAPHENOUS AP LAB ANKLE Specimen Narrative Performed At OTHER OUTSIDE LAB 1. Normal compression and no visualized thrombus in the measured venous segments 2. Detailed measurements are below Performing Organization Address City/State/ZIP Code P narendra Number OTHER OUTSIDE LAB * 2D + DOPPLER ECHO (12/10/2020 10:19 AM CDT) [facility] IVS 1.10 0.6 - 0.9 cm OTHER OUTSIDE LAB LVIDD 5.50 3.8 - 5.2 cm OTHER OUTSIDE LAB LVIDS 4.00 2.2 - 3.5 cm OTHER OUTSIDE LAB PW 0.80 0.6 - 0.9 cm OTHER OUTSIDE LAB LA size 3.70 2.7 - 3.8 cm OTHER OUTSIDE LAB AV peak 1.12 m/s OTHER OUTSIDE velocity LAB Sinus 3.20 2.4 - 3.6 cm OTHER OUTSIDE LAB Mr max geri 5.17 m/s OTHER OUTSIDE LAB Right Heart 1.99 >1.7 cm OTHER OUTSIDE Systolic Mmode LAB TAPSE Right 2.40 1.9 - 3.5 cm OTHER OUTSIDE Ventricular Mid LAB Diameter Right 3.10 2.5 - 4.1 cm OTHER OUTSIDE Ventricular LAB Basal Diameter Right Atrial 3.88 2.2 - 2.8 cm OTHER OUTSIDE Major Dimension LAB Right Atrial 12.20 <18 cm2 OTHER OUTSIDE Area LAB Right Heart 0.15 m/s OTHER OUTSIDE Systolic TDI S' LAB BSA 1.62 m2 OTHER OUTSIDE LAB FS 27.27 28 - 44 % OTHER OUTSIDE LAB EF 46.36 % OTHER OUTSIDE LAB LA volume 41 22 - 52 mL OTHER OUTSIDE LAB Ascending aorta 2.9 cm OTHER OUTSIDE LAB LV mass 199 67 - 162 g OTHER OUTSIDE LAB RWT 0.29 <=0.42 OTHER OUTSIDE LAB Left Atrium 25.31 16 - 34 OTHER OUTSIDE Index LAB Left Ventricle 123 43 - 95 g/m2 OTHER OUTSIDE Mass Index LAB Left Ventricle 248 46 - 106 mL OTHER OUTSIDE Diastolic LAB Volume Left Ventricle 153 29 - 61 mL OTHER OUTSIDE Diastolic LAB Volume Index Left Ventricle 147 14 - 42 mL OTHER OUTSIDE Systolic Volume LAB Left Ventricle 91 8 - 24 mL OTHER OUTSIDE Systolic Volume LAB Index TV rest 34 mmHg OTHER OUTSIDE pulmonary LAB artery pressure TR PEAK 2.8 m/s OTHER OUTSIDE VELOCITY LAB RV SYSTOLIC 31 OTHER OUTSIDE PRESSURE LAB RA PRESSURE 3 OTHER OUTSIDE LAB ECHO EF 30 % OTHER OUTSIDE LAB Referring Emily Toney OTHER OUTSIDE Provider LAB CV ECHO PV Dionna Bishop OTHER OUTSIDE SHEET [employer] SALESPERSON LAB Cardiology [facility] OTHER OUTSIDE Ultrasound LAB Machine Specimen Narrative Performed At OTHER OUTSIDE LAB The left ventricle is mildly dilated . Eccentric hypertrophy. The left ventricular systolic function is modera tely reduced. The visually estimated ejection fraction is 30%. The re are segmental wall motion abnormalities, as coded in the diagram below. The right ventricular size is normal . The right ventricular systolic function is hyperdynamic. Normal biatrial size. No significant valvluar abnormalitie s. Estimated Peak Systolic PA Pressure 34 mmHg No pericardial effusion. See remainder of report for additional findings. Performing Organization Address City/State/ZIP Code P narendra Number OTHER OUTSIDE LAB * LIPID PROFILE (12/08/2020 3:36 AM CDT) Cholesterol 215 (H) <200 MG/DL [facility] Triglycerides 358 (H) <150 MG/DL [facility] HDL 30 (L) >40 MG/DL [facility] LDL 141 (H) <100 mg/dL [facility] VLDL 72 MG/DL [facility] Non HDL 185 MG/DL [facility] Cholesterol Comment: Calculated non-HDL Cholesterol (non-HDL-C) indirectly measures LDL-C, Lp(a), IDL-C, and VLDL-C. It is a surrogate marker for Apoprotein B. Goal should be less than 130 mg/dL. Specimen Blood Performing Organization Address City/State/ZIP Code P narendra Number [facility] [address] [place] [address] * PANOREX EXAM (12/07/2020 10:46 PM CDT) Specimen Impressions Performed At Findings/Impression: [facility] There are several missing are previousl y extracted teeth and multiple dental restorations noted. There are dental ca rolf and #18 and 19 as well as 7, 9, and 10. No periapical lucency is identified . Finalized by Robert Kramer M.D. on 12/08 8:10 AM. Dictated by Robert Kramer M.D. on 12/08/2020 8:09 AM. Narrative Performed At PANOREX EXAM [facility] Indication: dentate Comparison: None. Procedure Note Interface, Radiant Results - 12/08/2020 8:14 AM CDT PANOREX EXAM Indication: dentate Comparison: None. IMPRESSION Findings/Impression: There are several missing are previously extracted teeth and multiple dental restorations noted. There are dental caries and #18 and 19 as well as 7, 9, and 10. No periapical lucency is identified. Finalized by Robert Kramer M.D. on 12/08/2020 8:10 AM. Dictated by Robert Kramer M.D. on 12/08/2020 8:09 AM. Performing Organization Address City/State/ZIP Code P narendra Number [facility] * BEDSIDE PFT (12/07/2020 7:11 PM CDT) FVC-Pre 1.78 L [facility] FVC-%Pred-pre 70 % [facility] FEV1-Pre 1.48 L [facility] FEV1-%Pred-Pre 75 % [facility] FEV1/FVC-Pre 83 % [facility] [id number] 64 % [facility] [id number] 1.35 L/sec [facility] [id number]-%Pred-P 81 % [facility] re Specimen Narrative Performed At This result has an attachment that is n ot available. Performing Organization Address [facility] Code P narendra Number [facility] [address] [address] 12 * BLOOD TYPE CONFIRMATION - ORDER ONLY IF REQUESTED BY LAB (12/07/2020 3:44 PM CDT) ABO/RH(D) B POS [facility] Specimen Lung RML Performing Organization Address [facility] P narendra Number [facility] [address] [place] [address] * TSH WITH FREE T4 REFLEX (12/07/2020 3:19 PM CDT) TSH 1.38 0.35 - 5.00 MCU/ML [facility] Specimen Performing Organization Address [facility] P narendra Number [facility] [address] [place] [address] * URINALYSIS, MICROSCOPIC (12/07/2020 3:19 PM CDT) WBCs,UA 0-2 0 - 2 /HPF [facility] RBCs,UA PACKED 0 - 3 /HPF [facility] MucousUA TRACE [facility] Squamous 0-2 0 - 5 [facility] Epithelial Cells Specimen Performing Organization Address [facility] P narendra Number [facility] [address] [place] [address] * URINALYSIS DIPSTICK (12/07/2020 3:19 PM CDT) Color,UA YELLOW [facility] Turbidity,UA CLEAR CLEAR-CLEAR [facility] Specific 1.035 1.003 - 1.035 [facility] [place]-Urine pH,UA 6.0 5.0 - 8.0 [facility] Protein,UA NEG NEG-NEG [facility] Glucose,UA NEG NEG-NEG [facility] Ketones,UA NEG NEG-NEG [facility] Bilirubin,UA NEG NEG-NEG [facility] Blood,UA 3+ (A) NEG-NEG [facility] Urobilinogen,UA NORMAL NORM-NORMAL [facility] Nitrite,UA NEG NEG-NEG [facility] Leukocytes,UA TRACE (A) NEG-NEG [facility] Urine Ascorbic NEG NEG-NEG [facility] Acid, UA Specimen Performing Organization Address City/[facility]/ZIP Code P narendra Number [facility] [address] [place] [address] * LACTIC ACID (BG - RAPID LACTATE) (12/07/2020 3:19 PM CDT) Lactic Acid,BG 1.9 0.5 - 2.0 MMOL/L [facility] Specimen Performing Organization Address [facility] P narendra Number [facility] [address] [place] [address] * HEMOGLOBIN A1C (12/07/2020 3:19 PM CDT) Hemoglobin A1C 5.9 4.0 - 6.0 % [facility] Comment: The ADA recommends that most patients with type 1 and type 2 diabetes maintain an A1c level <7%. Specimen Performing Organization Address [facility] P narendra Number [facility] [address] [place] [address] * TELEMETRY STRIPS-SCAN (12/07/2020 12:00 AM CDT) Narrative Performed At This result has an attachment that is n ot available. Ordered by an unspecified provider. * TELEMETRY STRIPS-SCAN (12/07/2020 12:00 AM CDT) Narrative Performed At This result has an attachment that is n ot available. Ordered by an unspecified provider. * TELEMETRY STRIPS-SCAN (12/07/2020 12:00 AM CDT) Narrative Performed At This result has an attachment that is n ot available. Ordered by an unspecified provider. * TELEMETRY STRIPS-SCAN (12/07/2020 12:00 AM CDT) Narrative Performed At This result has an attachment that is n ot available. Ordered by an unspecified provider. * TELEMETRY STRIPS-SCAN (12/07/2020 12:00 AM CDT) Narrative Performed At This result has an attachment that is n ot available. Ordered by an unspecified provider. * TELEMETRY STRIPS-SCAN (12/07/2020 12:00 AM CDT) Narrative Performed At This result has an attachment that is n ot available. Ordered by an unspecified provider. * TELEMETRY STRIPS-SCAN (12/07/2020 12:00 AM CDT) Narrative Performed At This result has an attachment that is n ot available. Ordered by an unspecified provider. * TELEMETRY STRIPS-SCAN (12/07/2020 12:00 AM CDT) Narrative Performed At This result has an attachment that is n ot available. Ordered by an unspecified provider. * TELEMETRY STRIPS-SCAN (12/07/2020 12:00 AM CDT) Narrative Performed At This result has an attachment that is n ot available. Ordered by an unspecified provider. * TELEMETRY STRIPS-SCAN (12/07/2020 12:00 AM CDT) Narrative Performed At This result has an attachment that is n ot available. Ordered by an unspecified provider. * TELEMETRY STRIPS-SCAN (12/07/2020 12:00 AM CDT) Narrative Performed At This result has an attachment that is n ot available. Ordered by an unspecified provider. * TELEMETRY STRIPS-SCAN (12/07/2020 12:00 AM CDT) Narrative Performed At This result has an attachment that is n ot available. Ordered by an unspecified provider. * TELEMETRY STRIPS-SCAN (12/07/2020 12:00 AM CDT) Narrative Performed At This result has an attachment that is n ot available. Ordered by an unspecified provider. * TELEMETRY STRIPS-SCAN (12/07/2020 12:00 AM CDT) Narrative Performed At This result has an attachment that is n ot available. Ordered by an unspecified provider. * TELEMETRY STRIPS-SCAN (12/07/2020 12:00 AM CDT) Narrative Performed At This result has an attachment that is n ot available. Ordered by an unspecified provider. * TELEMETRY STRIPS-SCAN (12/07/2020 12:00 AM CDT) Narrative Performed At This result has an attachment that is n ot available. Ordered by an unspecified provider. * TELEMETRY STRIPS-SCAN (12/07/2020 12:00 AM CDT) Narrative Performed At This result has an attachment that is n ot available. Ordered by an unspecified provider. * TELEMETRY STRIPS-SCAN (12/07/2020 12:00 AM CDT) Narrative Performed At This result has an attachment that is n ot available. Ordered by an unspecified provider. * TELEMETRY STRIPS-SCAN (12/07/2020 12:00 AM CDT) Narrative Performed At This result has an attachment that is n ot available. Ordered by an unspecified provider. * TELEMETRY STRIPS-SCAN (12/07/2020 12:00 AM CDT) Narrative Performed At This result has an attachment that is n ot available. Ordered by an unspecified provider. * TELEMETRY STRIPS-SCAN (12/07/2020 12:00 AM CDT) Narrative Performed At This result has an attachment that is n ot available. Ordered by an unspecified provider. * TELEMETRY STRIPS-SCAN (12/07/2020 12:00 AM CDT) Narrative Performed At This result has an attachment that is n ot available. Ordered by an unspecified provider. * TELEMETRY STRIPS-SCAN (12/07/2020 12:00 AM CDT) Narrative Performed At This result has an attachment that is n ot available. Ordered by an unspecified provider. * TELEMETRY STRIPS-SCAN (12/07/2020 12:00 AM CDT) Narrative Performed At This result has an attachment that is n ot available. Ordered by an unspecified provider. * TELEMETRY STRIPS-SCAN (12/07/2020 12:00 AM CDT) Narrative Performed At This result has an attachment that is n ot available. Ordered by an unspecified provider. * TELEMETRY STRIPS-SCAN (12/07/2020 12:00 AM CDT) Narrative Performed At This result has an attachment that is n ot available. Ordered by an unspecified provider. * TELEMETRY STRIPS-SCAN (12/07/2020 12:00 AM CDT) Narrative Performed At This result has an attachment that is n ot available. Ordered by an unspecified provider. * TELEMETRY STRIPS-SCAN (12/07/2020 12:00 AM CDT) Narrative Performed At This result has an attachment that is n ot available. Ordered by an unspecified provider. * TELEMETRY STRIPS-SCAN (12/07/2020 12:00 AM CDT) Narrative Performed At This result has an attachment that is n ot available. Ordered by an unspecified provider. * TELEMETRY STRIPS-SCAN (12/07/2020 12:00 AM CDT) Narrative Performed At This result has an attachment that is n ot available. Ordered by an unspecified provider. * TELEMETRY STRIPS-SCAN (12/07/2020 12:00 AM CDT) Narrative Performed At This result has an attachment that is n ot available. Ordered by an unspecified provider. * TELEMETRY STRIPS-SCAN (12/07/2020 12:00 AM CDT) Narrative Performed At This result has an attachment that is n ot available. Ordered by an unspecified provider. * TELEMETRY STRIPS-SCAN (12/07/2020 12:00 AM CDT) Narrative Performed At This result has an attachment that is n ot available. Ordered by an unspecified provider. * TELEMETRY STRIPS-SCAN (12/07/2020 12:00 AM CDT) Narrative Performed At This result has an attachment that is n ot available. Ordered by an unspecified provider. * TELEMETRY STRIPS-SCAN (12/07/2020 12:00 AM CDT) Narrative Performed At This result has an attachment that is n ot available. Ordered by an unspecified provider. * TELEMETRY STRIPS-SCAN (12/07/2020 12:00 AM CDT) Narrative Performed At This result has an attachment that is n ot available. Ordered by an unspecified provider. * TELEMETRY STRIPS-SCAN (12/07/2020 12:00 AM CDT) Narrative Performed At This result has an attachment that is n ot available. Ordered by an unspecified provider. * TELEMETRY STRIPS-SCAN (12/07/2020 12:00 AM CDT) Narrative Performed At This result has an attachment that is n ot available. Ordered by an unspecified provider. * TELEMETRY STRIPS-SCAN (12/07/2020 12:00 AM CDT) Narrative Performed At This result has an attachment that is n ot available. Ordered by an unspecified provider. * TELEMETRY STRIPS-SCAN (12/07/2020 12:00 AM CDT) Narrative Performed At This result has an attachment that is n ot available. Ordered by an unspecified provider. * TELEMETRY STRIPS-SCAN (12/07/2020 12:00 AM CDT) Narrative Performed At This result has an attachment that is n ot available. Ordered by an unspecified provider. * TELEMETRY STRIPS-SCAN (12/07/2020 12:00 AM CDT) Narrative Performed At This result has an attachment that is n ot available. Ordered by an unspecified provider. * TELEMETRY STRIPS-SCAN (12/07/2020 12:00 AM CDT) Narrative Performed At This result has an attachment that is n ot available. Ordered by an unspecified provider. * TELEMETRY STRIPS-SCAN (12/07/2020 12:00 AM CDT) Narrative Performed At This result has an attachment that is n ot available. Ordered by an unspecified provider. * TELEMETRY STRIPS-SCAN (12/07/2020 12:00 AM CDT) Narrative Performed At This result has an attachment that is n ot available. Ordered by an unspecified provider. * TELEMETRY STRIPS-SCAN (12/07/2020 12:00 AM CDT) Narrative Performed At This result has an attachment that is n ot available. Ordered by an unspecified provider. * TELEMETRY STRIPS-SCAN (12/07/2020 12:00 AM CDT) Narrative Performed At This result has an attachment that is n ot available. Ordered by an unspecified provider. * TELEMETRY STRIPS-SCAN (12/07/2020 12:00 AM CDT) Narrative Performed At This result has an attachment that is n ot available. Ordered by an unspecified provider. * TELEMETRY STRIPS-SCAN (12/07/2020 12:00 AM CDT) Narrative Performed At This result has an attachment that is n ot available. Ordered by an unspecified provider. * TELEMETRY STRIPS-SCAN (12/07/2020 12:00 AM CDT) Narrative Performed At This result has an attachment that is n ot available. Ordered by an unspecified provider. * TELEMETRY STRIPS-SCAN (12/07/2020 12:00 AM CDT) Narrative Performed At This result has an attachment that is n ot available. Ordered by an unspecified provider. * TELEMETRY STRIPS-SCAN (12/07/2020 12:00 AM CDT) Narrative Performed At This result has an attachment that is n ot available. Ordered by an unspecified provider. * TELEMETRY STRIPS-SCAN (12/07/2020 12:00 AM CDT) Narrative Performed At This result has an attachment that is n ot available. Ordered by an unspecified provider. * TELEMETRY STRIPS-SCAN (12/07/2020 12:00 AM CDT) Narrative Performed At This result has an attachment that is n ot available. Ordered by an unspecified provider. * TELEMETRY STRIPS-SCAN (12/07/2020 12:00 AM CDT) Narrative Performed At This result has an attachment that is n ot available. Ordered by an unspecified provider. * TELEMETRY STRIPS-SCAN (12/07/2020 12:00 AM CDT) Narrative Performed At This result has an attachment that is n ot available. Ordered by an unspecified provider. * TELEMETRY STRIPS-SCAN (12/07/2020 12:00 AM CDT) Narrative Performed At This result has an attachment that is n ot available. Ordered by an unspecified provider. * TELEMETRY STRIPS-SCAN (12/07/2020 12:00 AM CDT) Narrative Performed At This result has an attachment that is n ot available. Ordered by an unspecified provider. * TELEMETRY STRIPS-SCAN (12/07/2020 12:00 AM CDT) Narrative Performed At This result has an attachment that is n ot available. Ordered by an unspecified provider. * TELEMETRY STRIPS-SCAN (12/07/2020 12:00 AM CDT) Narrative Performed At This result has an attachment that is n ot available. Ordered by an unspecified provider. * TELEMETRY STRIPS-SCAN (12/07/2020 12:00 AM CDT) Narrative Performed At This result has an attachment that is n ot available. Ordered by an unspecified provider. * TELEMETRY STRIPS-SCAN (12/07/2020 12:00 AM CDT) Narrative Performed At This result has an attachment that is n ot available. Ordered by an unspecified provider. * TELEMETRY STRIPS-SCAN (12/07/2020 12:00 AM CDT) Narrative Performed At This result has an attachment that is n ot available. Ordered by an unspecified provider. * TELEMETRY STRIPS-SCAN (12/07/2020 12:00 AM CDT) Narrative Performed At This result has an attachment that is n ot available. Ordered by an unspecified provider. * TELEMETRY STRIPS-SCAN (12/07/2020 12:00 AM CDT) Narrative Performed At This result has an attachment that is n ot available. Ordered by an unspecified provider. * TELEMETRY STRIPS-SCAN (12/07/2020 12:00 AM CDT) Narrative Performed At This result has an attachment that is n ot available. Ordered by an unspecified provider. * TELEMETRY STRIPS-SCAN (12/07/2020 12:00 AM CDT) Narrative Performed At This result has an attachment that is n ot available. Ordered by an unspecified provider. * TELEMETRY STRIPS-SCAN (12/07/2020 12:00 AM CDT) Narrative Performed At This result has an attachment that is n ot available. Ordered by an unspecified provider. * TELEMETRY STRIPS-SCAN (12/07/2020 12:00 AM CDT) Narrative Performed At This result has an attachment that is n ot available. Ordered by an unspecified provider. * TELEMETRY STRIPS-SCAN (12/07/2020 12:00 AM CDT) Narrative Performed At This result has an attachment that is n ot available. Ordered by an unspecified provider. * TELEMETRY STRIPS-SCAN (12/07/2020 12:00 AM CDT) Narrative Performed At This result has an attachment that is n ot available. Ordered by an unspecified provider. * TELEMETRY STRIPS-SCAN (12/07/2020 12:00 AM CDT) Narrative Performed At This result has an attachment that is n ot available. Ordered by an unspecified provider. * TELEMETRY STRIPS-SCAN (12/07/2020 12:00 AM CDT) Narrative Performed At This result has an attachment that is n ot available. Ordered by an unspecified provider. * TELEMETRY STRIPS-SCAN (12/07/2020 12:00 AM CDT) Narrative Performed At This result has an attachment that is n ot available. Ordered by an unspecified provider. * TELEMETRY STRIPS-SCAN (12/07/2020 12:00 AM CDT) Narrative Performed At This result has an attachment that is n ot available. Ordered by an unspecified provider. * TELEMETRY STRIPS-SCAN (12/07/2020 12:00 AM CDT) Narrative Performed At This result has an attachment that is n ot available. Ordered by an unspecified provider. * ECG-SCAN (12/07/2020 12:00 AM CDT) Narrative Performed At This result has an attachment that is n ot available. Ordered by an unspecified provider. * ECG-SCAN (12/07/2020 12:00 AM CDT) Narrative Performed At This result has an attachment that is n ot available. Ordered by an unspecified provider. * ECG-SCAN (12/07/2020 12:00 AM CDT) Narrative Performed At This result has an attachment that is n ot available. Ordered by an unspecified provider. * ECG-SCAN (12/07/2020 12:00 AM CDT) Narrative Performed At This result has an attachment that is n ot available. Ordered by an unspecified provider. * PROCEDURE RECORD-SCAN (12/07/2020 12:00 AM CDT) Narrative Performed At This result has an attachment that is n ot available. Ordered by an unspecified provider. * PROCEDURE RECORD-SCAN (12/07/2020 12:00 AM CDT) Narrative Performed At This result has an attachment that is n ot available. Ordered by an unspecified provider. * GENERAL RAD CHEST EXTERNAL IMAGING (12/06/2020 12:00 AM CDT) Specimen Narrative Performed At This order has been auto finalized and does not contain a result. 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
--- OUTSIDE RECORDS SUMMARY | 2021-02-18 19:58 | XMS REPORT | Encounter Summary ---
Author Author [facility] Organization [facility] Address Unknown Phone Unavailable Care Team Providers Care Sprinkling System Irrigator Name Role Phone Jonn Terry DO PCP Encounter Details Care Team Description Date Type Department 12/26/2020 Travel Social History Date Tobacco Use Types Packs/Day Years Used Never Smoker Smokeless Tobacco: Never Used Sex Assigned at Date Recorded Not on file Date Recorded COVID-19 Exposure Response 12/26/2020 5:23 AM CDT In the last month, have you been in contact with [facility] to assess someone who was confirmed or suspected to have Coronavirus / COVID-19? documented as of this encounter Functional Status Date of Assessment Functional Status Response 12/10/2020 Does the patient have a hearing impairment: No documented as of this encounter Plan of Treatment Not on filedocumented as of this encounter Goals Goal Patient Associated Recent Progress Patient-Stat Aut hor Goal Type Problems ed? Recover from illness Hospital No Malia Ureña RN Improve quality of life [facility] On track (12/07/2020 Anali Garcia, 9:49 PM CDT) PREETHI Rivera documented as of this encounter Visit Diagnoses Not on filedocumented in this encounter Additional Health Concerns Assessment Noted Time A fall risk assessment has been completed for the pat ient 12/25/2020 7:45 AM CDT documented as of this encounter
--- OUTSIDE RECORDS SUMMARY | 2021-02-18 19:58 | XMS REPORT | Encounter Summary ---
Author Author [facility] Organization [facility] Address Unknown Phone Unavailable Care Team Providers Care Guest Services Agent Name Role Phone Jonn Terry DO PCP Encounter Details Care Team Description Date Type Department Malathi Post 02/17/2021 Telephone Cardiology: [facility] [address] [place] [address] Social History Date Tobacco Use Types Packs/Day Years Used Never Smoker Smokeless Tobacco: Never Used Comments Alcohol Use Standard Drinks/Week Not Currently 0 (1 standard drink = 0.6 o z pure alcohol) Sex Assigned at Date Recorded Not on file documented as of this encounter Functional Status Date of Assessment Functional Status Response 12/10/2020 Does the patient have a hearing impairment: No documented as of this encounter Miscellaneous Notes * Telephone Encounter - Malathi Post - 02/17/2021 9:00 AM CDT Spoke with pts daughter, Sandra, regarding no life[employer] data being sent since 02/07/21. Per Sandra, they had a [employer] rep come out 2 weeks ago. They moved the hot- spot but are still having issues with Wifi connection. She reports they are in t ouch with a [employer] rep who will be contacting them today for a resolution. documented in this encounter Plan of Treatment Not on filedocumented as of this encounter Goals Goal Patient Associated Recent Progress Patient-Stat Aut hor Goal Type Problems ed? Recover from illness Hospital No Trauthwei n, Malia, RN Improve quality of life Hospital On track (12/07/2020 No Sprroseliale, 9:49 PM CDT) PREETHI Rivera documented as of this encounter Visit Diagnoses Not on filedocumented in this encounter Additional Health Concerns Assessment Noted Time A fall risk assessment has been completed for the pat ient 01/08/2021 1:35 PM CDT documented as of this encounter
--- OUTSIDE RECORDS SUMMARY | 2021-02-18 19:58 | XMS REPORT | Encounter Summary ---
Author Author [facility] Organization [facility] Address Unknown Phone Unavailable Care Team Providers Care Binder Coverstitch Name Role Phone Jonn Terry DO PCP Encounter Details Care Team Description Date Type Department 01/08/2021 Travel Social History Date Tobacco Use Types Packs/Day Years Used Never Smoker Smokeless Tobacco: Never Used Comments Alcohol Use Standard Drinks/Week Not Currently 0 (1 standard drink = 0.6 o z pure alcohol) Sex Assigned at Date Recorded Not on file Date Recorded COVID-19 Exposure Response 01/08/2021 12:57 PM CDT In the last month, have you been in contact with No / Unsure someone who was confirmed or suspected to [...] Malia Ureña RN Improve quality of life Hospital On track (12/07/2020 No Jose, 9:49 PM CDT) PREETHI Rivera documented as of this encounter Visit Diagnoses Not on filedocumented in this encounter Additional Health Concerns Assessment Noted Time A fall risk assessment has been completed for the pat ient 01/08/2021 1:35 PM CDT documented as of this encounter
--- OUTSIDE RECORDS SUMMARY | 2021-02-18 19:58 | XMS REPORT | Encounter Summary ---
Author Author [facility] Organization [facility] Address Unknown Phone Unavailable Care Team Providers Care Diabetes Territory Manager Name Role Phone Jonn Terry DO PCP Reason for Visit * Reason Comments Post Operative Visit cabg Encounter Details Care Team Description Date Type Department Tab Patel MD [address] [place] [address] S/P CABG x 2 (Primary Dx) 01/08/2021 Office Visit Cardiothoracic Surg nanci: [place], [facility] [address] [facility], [address] [place] [address] Social History Date Tobacco Use [...] / COVID-19? documented as of this encounter Last Filed Vital Signs Reading Time Taken Comments Vital Sign 112/68 01/08/2021 1:35 PM CDT Blood Pressure 73 01/08/2021 1:35 PM CDT Pulse - - Temperature 18 01/08/2021 1:35 PM CDT Respiratory Rate 94% 01/08/2021 1:35 PM CDT Oxygen Saturation - - Inhaled Oxygen Concentration 56.2 kg (124 lb) 01/08/2021 1:35 PM CDT Weight 157.5 cm (5' 2") 01/08/2021 1:35 PM CDT Height 22.68 01/08/2021 1:35 PM CDT Body Mass Index documented in this encounter Functional Status Date of Assessment Functional Status Response 12/10/2020 Does the patient have a hearing impairment: No documented as of this encounter Patient Instructions * Patient Instructions* Gerri Horton APRN-NP - 01/08/2021 2:30 PM CDT 6 weeks from the date of surgery you may gradually increase the amount of weight that you are lifting. You should start at low weights and gradually work your w ay up. If there is no discomfort while doing it, then that is ok. If you have di scomfort then you should stop. At 3 months from the date of surgery the sternum should be completely healed like it was never broken. If you have any questions or concerns please notify our office otherwise we feel no further surgical follo w-up is warranted. You will continue to follow with your PCP and informatics nurse fo r continued care. Thank you for the opportunity to participate in your care. documented in this encounter Progress Notes * Gerir Horton APRN-NP - 01/08/2021 2:30 PM CDT Date of Service: 01/08/2021 Subjective: Carli Koroma is a 75 y.o. female. History of Present Illness Today we had the pleasure of seeing your patient, Carli Koroma, in our office f or routine postop follow up after CABG x 2 with COFFMAN to LAD and SV to OM1, endos copic vein harvest and IABP placement performed by Dr. Tab Patel on 12/16/2020 for MV CAD. Unfortunately, she did develop right leg ischemia and underwent rig ht popliteal and tibial artery thrombectomy with Dr. Salinas on 12/17/2020. Her RLE pulses returned and there was no evidence of compartment syndrome. She returned to the ICU and was extubated shortly after the procedure. She was diuresed for volume overload and her inotropes were weaned down slowly. The patient was tr ansferred to the cardiothoracic progressive care unit on post operative day #4. Her Milrinone was weaned off and she underwent a repeat TTE that demonstrated an LVEF of 25%. Heart failure was consulted to help with her GDMT. A Life Vest was ordered and placed on patient prior to discharge. PT/OT recommended IPR at [facility]. She was stable to be discharged to [facility] on post op erative day#9. Since discharge Carli Koroma states she has been doing well. She was discharged from [facility] on Wednesday and is now back at home working with HH/PT/OT. She has erin nued to wear her lifevest. She is currently being treated for thrush and her steph etite has not been good the past couple of days. she denies any fevers, drainag e from incisions, popping/clicking of the sternum or worsening shortness of torres th. She is walking very short distances and states when walking approximately 20 ft from the living room to the bathroom she has to stop and catch her breath. She is scheduled to see Dr. Toney tomorrow. She plans to participate in cardiac rehab once she has completed HH/PT. Chest xray performed today revealed intact sternal wires, small left pleural eff usion with left hemidiaphragm. We will have her repeat an xray with Dr. Toney in 2 weeks for re-evaluation of her left hemidiaphragm. Patient was informed that at 6 weeks from the date of surgery she may gradually increase the amount of weight that she is lifting. She should start at low weigh ts and gradually work her way up. If there is no discomfort while doing it, then that is ok. If she has discomfort then she should stop. At 3 months from the da te of surgery the sternum should be completely healed like it was never broken. If she has any questions or concerns she will notify our office otherwise we fee l no further surgical follow-up is warranted. She will continue to follow with h er PCP and informatics nurse for continued care. Thank you for the opportunity to par wandyipate in the care of Carli Koroma. Review of Systems Constitution: Negative. HENT: Negative. Eyes: Negative. Cardiovascular: Negative. Respiratory: Negative. Endocrine: Negative. Hematologic/Lymphatic: Negative. Skin: Negative. Musculoskeletal: Negative. Gastrointestinal: Negative. Genitourinary: Negative. Neurological: Positive for weakness. Psychiatric/Behavioral: Negative. Objective: acetaminophen (TYLENOL) 325 mg tablet Take two tablets by mouth every 6 hour s as needed. allopurinoL (ZYLOPRIM) 100 mg tablet Take 100 mg by mouth daily. Take with f ood. Indications: treatment to prevent acute gout attack antiox #8/om3/dha/epa/lut/zeax (PRESERVISION AREDS 2 (OMEGA-3) PO) Take 1 ta blet by mouth daily. aspirin 81 mg chewable tablet Chew one tablet by mouth daily. Take with food . clopiDOGrel (PLAVIX) 75 mg tablet Take one tablet by mouth daily. ezetimibe (ZETIA) 10 mg tablet Take one tablet by mouth at bedtime daily. furosemide (LASIX) 40 mg tablet Take one tablet by mouth daily. gabapentin (NEURONTIN) 300 mg capsule Take 300 mg by mouth five times daily. metoprolol XL (TOPROL XL) 25 mg extended release tablet Take one tablet by m outh at bedtime daily. nystatin (MYCOSTATIN) 100,000 units/mL oral suspension Take 500,000 Units by mouth four times daily. potassium chloride SR (K-DUR) 20 mEq tablet Take one tablet by mouth daily. Take with a meal and a full glass of water. rosuvastatin (CRESTOR) 10 mg tablet Take one tablet by mouth every 72 hours. senna/docusate (SENOKOT-S) 8.6/50 mg tablet Take two tablets by mouth twice daily. SITagliptin (JANUVIA) 50 mg tablet Take 50 mg by mouth daily. Vitals: 01/08/21 1335 BP: 112/68 BP Source: Arm, Left Upper Patient Position: Sitting Pulse: 73 Resp: 18 SpO2: 94% Weight: 56.2 kg (124 lb) Height: 1.575 m (5' 2") Body mass index is 22.68 kg/m. Physical Exam Constitutional: Appearance: Normal appearance. She is cachectic. HENT: Head: Normocephalic and atraumatic. Eyes: Extraocular Movements: Extraocular movements intact. Conjunctiva/sclera: Conjunctivae normal. Pupils: Pupils are equal, round, and reactive to light. Cardiovascular: Rate and Rhythm: Regular rhythm. Tachycardia present. Comments: lifevest in place Pulmonary: Effort: Pulmonary effort is normal. Breath sounds: Examination of the left-lower field reveals decreased breath s ounds. Decreased breath sounds present. Abdominal: Palpations: Abdomen is soft. Musculoskeletal: Cervical back: Normal range of motion and neck supple. Comments: wheelchair Skin: General: Skin is warm and dry. Comments: midsternal, left EVH and right knee incisions are well healed and w ell approximated without exudate, erythema, or swelling. Sternum is stable with cough. Neurological: General: No focal deficit present. Mental Status: She is alert and oriented to person, place, and time. Psychiatric: Mood and Affect: Mood normal. Behavior: Behavior normal. Thought Content: Thought content normal. Judgment: Judgment normal. Gerri Horton, KAVITHA-Hung 01/08/2021 @ 1600 Assessment and Plan: 75F s/p CABG x2, IABP for low EF ischemic cardiomyopathy. Overall has done very well. Discharged to rehab. Now home. Some decreased functionality she thinks due to oral thrust and decreased PO intake for the past week. Started mouthwash and has improved. Weight down to 125 from baseline 140lbs or so. Wound healing well. No leg issues. Walking independently. CXR reviewed, some diaphragm elevation, small left effusion. Would watch the left pleural space for now, will plan for T TE in the next [address] Toney and make a decision about AICD vs. LifeVe st vs. Removal. Thank you very much for the referral. Please feel free to reach out for any issu es at all. Tab Patel MD Power Plant Operator Cardiothoracic Surgery Pager: [phone] documented in this encounter Plan of Treatment Not on filedocumented as of this encounter Goals Goal Patient Associated Recent Progress Patient-Stat Aut hor Goal Type Problems ed? Recover from illness Hospital No Malia Ureña RN Improve quality of life [facility] On track (12/07/2020 Anali Garcia, 9:49 PM CDT) PREETHI Rivera documented as of this encounter Procedures Comments Procedure Name Priority Date/Time Associated Diag nosis ECG-SCAN 01/08/2021 12:00 AM CDT documented in this encounter Results * ECG-SCAN (01/08/2021 12:00 AM CDT) Narrative Performed At This result has an attachment that is n ot available. Ordered by an unspecified provider. documented in this encounter Visit Diagnoses Diagnosis S/P CABG x 2 - Primary Postsurgical aortocoronary bypass statu s documented in this encounter Discontinued Medications Start Date End Date Medication Sig Discontinue Reason 01/08/2021 SITagliptin-metformin Take 1 (JANUMET XR) 100-1,000 mg tablet by tabletIndications: type 2 mouth daily. diabetes mellitus Indications: type 2 diabetes mellitus 12/25/2020 01/08/2021 traMADoL (ULTRAM) 50 mg Take tablet one-half tablet by mouth every 6 hours as needed. 12/25/2020 01/08/2021 spironolactone Take one (ALDACTONE) 25 mg tablet tablet by mouth daily. Take with food. 12/25/2020 01/08/2021 losartan (COZAAR) 25 mg Take one tablet tablet by mouth daily. documented as of this encounter Historical Medications * This list may reflect changes made after this encounter. Start Date End Date Medication Sig Dispensed Refills nystatin (MYCOSTATIN) Take 500,000 0 100,000 units/mL oral Units by suspension mouth four times daily. SITagliptin (JANUVIA) 50 Take 50 mg by 0 mg tablet mouth daily. added in this encounter Additional Health Concerns Assessment Noted Time A fall risk assessment has been completed for the pat ient 01/08/2021 1:35 PM CDT documented as of this encounter
--- OUTSIDE RECORDS SUMMARY | 2021-02-18 19:58 | XMS REPORT | Encounter Summary ---
Author Author [facility] Organization [facility] Address Unknown Phone Unavailable Care Team Providers Care Lens Polisher Hand Name Role Phone Jonn Terry DO PCP Reason for Referral * Radiology Services (Routine) Referred By Contact Referred To Contact Status Reason Specialty Diagnoses / Procedures Tina Cortez PA-C [address] [place] [phone] New Request Radiology Diagnoses S/P CABG x 2 P rocedures CHEST 2 VIEWS Electronically signed by Tina Cortez PA-C at Reason for Visit * Radiology Services (Routine) Referred By Contact Referred To Contact Status Reason Specialty Diagnoses / Procedures Tina Cortez PA-C [address] [place] [phone] New Request Radiology Diagnoses S/P CABG x 2 P rocedures CHEST 2 VIEWS Encounter Details Care Team Description Date Type Department Tina Cortez PA-C [address] [place] [phone] 01/08/2021 Hospital Imaging: Main [place] [facility], Encounter [address], [address] [place] [address] Social History Date Tobacco Use [...] impairment: No documented as of this encounter Medications at Time of Discharge Start Date End Date Medication Sig Dispensed Refills 12/25/2020 acetaminophen (TYLENOL) Take two 0 325 mg tablet tablets by mouth every 6 hours as needed. allopurinoL (ZYLOPRIM) Take 100 mg 0 100 mg tabletIndications: by mouth prevention of acute gout daily. Take attack with food. Indications: treatment to prevent acute gout attack antiox Take 1 tablet 0 #8/om3/dha/epa/lut/zeax by mouth (PRESERVISION AREDS 2 daily. (OMEGA-3) PO) 12/25/2020 aspirin 81 mg chewable Chew one 90 tablet 0 tablet tablet by mouth daily. Take with food. 12/25/2020 clopiDOGrel (PLAVIX) 75 Take one 90 tablet 0 mg tablet tablet by mouth daily. 12/25/2020 ezetimibe (ZETIA) 10 mg Take one 90 tablet 0 tablet tablet by mouth at bedtime daily. 12/25/2020 furosemide (LASIX) 40 mg Take one 90 tablet 0 tablet tablet by mouth daily. gabapentin (NEURONTIN) Take 300 mg 0 300 mg capsule by mouth five times daily. 12/25/2020 metoprolol XL (TOPROL XL) Take one 90 tablet 0 25 mg extended release tablet by tablet mouth at bedtime daily. nystatin (MYCOSTATIN) Take 500,000 0 100,000 units/mL oral Units by suspension mouth four times daily. 12/25/2020 potassium chloride SR Take one 90 tablet 0 (K-DUR) 20 mEq tablet tablet by mouth daily. Take with a meal and a full glass of water. 12/25/2020 rosuvastatin (CRESTOR) 10 Take one 90 tablet 0 mg tablet tablet by mouth every 72 hours. 12/25/2020 senna/docusate Take two 30 tablet 0 (SENOKOT-S) 8.6/50 mg tablets by tablet mouth twice daily. SITagliptin (JANUVIA) 50 Take 50 mg by 0 mg tablet mouth daily. documented as of this encounter Discharge Disposition Code Departure Means Destination Disposition Home Home or Self Care documented in this encounter Plan of Treatment Not on filedocumented as of this encounter Goals Goal Patient Associated Recent Progress Patient-Stat Aut hor Goal Type Problems ed? Recover from illness Hospital No Malia Ureña RN [facility] quality of [facility] On track (12/07/2020 No Jose, 9:49 PM CDT) PREETHI Rivera documented as of this encounter Procedures Comments Procedure Name Priority Date/Time Associated Diag nosis CHEST 2 VIEWS Routine 01/08/2021 S/P CABG x 2 1:20 PM CDT documented in this encounter Results * CHEST 2 VIEWS (01/08/2021 1:20 PM CDT) Specimen Impressions Performed At Mild elevation of [...] Code P narendra Number [facility] RAD RESULTS documented in this encounter Visit Diagnoses Diagnosis S/P CABG x 2 Postsurgical aortocoronary bypass statu s documented in this encounter Additional Health Concerns Assessment Noted Time A fall risk assessment has been completed for the pat ient 01/08/2021 1:35 PM CDT documented as of this encounter
--- OUTSIDE RECORDS SUMMARY | 2021-02-18 19:58 | XMS REPORT | Encounter Summary ---
Author Author [facility] Organization [facility] Address Unknown Phone Unavailable Care Team Providers Care Echometer Engineer Name Role Phone Jonn Terry DO PCP Encounter Details Care Team Description Date Type Department Brittany Hernandez PA-C [address] [place] [address] 12/26/2020 Hospital Cardiology: [facility] [address] [facility] [address] [place] [address] Social History Date Tobacco Use Types Packs/Day Years Used Never Smoker Smokeless Tobacco: Never Used Sex Assigned at Date Recorded Not on file Date Recorded COVID-19 Exposure Response 12/26/2020 5:23 AM CDT In the last month, have you been in contact with [facility] to assess someone who was confirmed or [...] tablet by tablet mouth at bedtime daily. 12/25/2020 potassium chloride SR Take one 90 tablet 0 (K-DUR) 20 mEq tablet tablet by mouth daily. Take with a meal and a full glass of water. 12/25/2020 rosuvastatin (CRESTOR) 10 Take one 90 tablet 0 mg tablet tablet by mouth every 72 hours. 12/25/2020 senna/docusate Take two 30 tablet 0 (SENOKOT-S) 8.6/50 mg tablets by tablet mouth twice daily. 12/25/2020 01/08/2021 losartan (COZAAR) 25 mg Take one 90 tablet 0 tablet tablet by mouth daily. 01/08/2021 SITagliptin-metformin Take 1 tablet 0 (JANUMET XR) 100-1,000 mg by mouth tabletIndications: type 2 daily. diabetes mellitus Indications: type 2 diabetes mellitus 12/25/2020 01/08/2021 spironolactone Take one 90 tablet 0 (ALDACTONE) 25 mg tablet tablet by mouth daily. Take with food. 12/25/2020 01/08/2021 traMADoL (ULTRAM) 50 mg Take one-half 20 tablet 0 tablet tablet by mouth every 6 hours as needed. documented as of this encounter Discharge Disposition Code Departure Means Destination Disposition Home Home or Self Care documented in this encounter Plan of Treatment Not on filedocumented as of this encounter Goals Goal Patient Associated Recent Progress Patient-Stat Aut hor Goal Type Problems ed? Recover from illness [facility] Malia Lemos RN Improve quality of life Hospital On track (12/07/2020 Anali Garcia, 9:49 PM CDT) PREETHI Rivera documented as of this encounter Procedures Comments Procedure Name Priority Date/Time Associated Diag nosis REMOTE WEARABLE Routine 12/26/2020 At risk for burns dden CARDIOVERTER-DEFIBRILLATO 5:23 AM CDT cardiac coleman th R (LIFEVEST) INTERROGATION documented in this encounter Results * REMOTE WEARABLE CARDIOVERTER-DEFIBRILLATOR (LIFEVEST) INTERROGATION (12/26/2020 5:23 AM CDT) Specimen Narrative Performed At OTHER OUTSIDE LAB [12/26/2020 5:24:12 AM - [facility]] LifeVest Baseline download received, no treatment events noted. Routed to Dr. Thompson for co-signature. Valente continue to monitor. See scanned HRM Data Sheet for report amos zamorano. __ Performing Organization Address City/State/ZIP Code P narendra Number OTHER OUTSIDE LAB documented in this encounter Visit Diagnoses Diagnosis At risk for sudden cardiac Other specified conditions influencing health status documented in this encounter Additional Health Concerns Assessment Noted Time A fall risk assessment has been completed for the pat ient 12/25/2020 7:45 AM CDT documented as of this encounter
--- OUTSIDE RECORDS SUMMARY | 2021-02-18 20:00 | XMS REPORT | Encounter Summary ---
Author Author [facility] Organization [facility] Address Unknown Phone Unavailable Care Team Providers Care Basket Weaver Name Role Phone No Pcp, Na PCP Unavailable Jonn Terry DO PCP Reason for Referral * Radiology Services (Routine) Referred By Contact Referred To Contact Status Reason Specialty Diagnoses / Procedures Tina Cortez PA-C [address] [facility] [place] [address] New Request Radiology Diagnoses S/P CABG x 2 P rocedures CHEST 2 VIEWS Electronically signed by Tina Patiño PA-C at * Consult, Test & Treat (Discharge Pending) Referred By Contact Referred To Contact Status Reason Specialty Diagnoses / Procedures Dario Webster MD [address] [place] [address] Hc4 Cardpulm Rehab Sv 4000 [facility] [address] [place] [address] Closed Diagnoses S/P CABG x 2 P rocedures APPOINTMENT REQUEST: CARDIAC REHAB Electronically signed by Dario Webster MD at * Consult, Test & Treat (Discharge Pending) Referred By Contact Referred To Contact Status Reason Specialty Diagnoses / Procedures Sumi Das APRN-NP [address] [place] [address] New Request Diagnoses Ischemia of right lower extremity P rocedures APPOINTMENT REQUEST: VASCULAR SERVICES Electronically signed by Sumi RAMON at Reason for Visit * Auth/Cert Referred By Contact Referred To Contact Status Reason Specialty Diagnoses / Procedures Diagnoses Chest pain CAD Encounter Details Care Team Description Date Type Department Fortunato Garsia III, MD [address] [facility] [address] [place] [address] Dario Webster MD [address] [place] [address] S/P CABG x 2 12/07/2020 Hospital Patient Care Unit H C4: - Encounter [facility] 12/25/2020 Care 4000 [facility] [address] [place] [address] Social History Date Tobacco Use Types Packs/Day Years Used Never Smoker Smokeless Tobacco: Never Used Sex Assigned at Date Recorded Not on file Date Recorded COVID-19 Exposure Response 12/16/2020 6:23 AM CDT In the last month, have you been in contact with No / Unsure someone who was confirmed or suspected to have Coronavirus / COVID-19? documented as of this encounter Last Filed Vital Signs Reading Time Taken Comments Vital Sign 109/63 12/25/2020 8:12 AM CDT Blood Pressure 76 12/25/2020 8:12 AM CDT Pulse 37.4 C (99.3 F) 12/25/2020 8:12 AM CDT Temperature - - Respiratory Rate 96% 12/25/2020 8:12 AM CDT Oxygen Saturation - - Inhaled Oxygen Concentration 57.8 kg (127 lb 6.4 oz) 12/25/2020 6:00 AM CDT Weight 157.5 cm (5' 2") 12/20/2020 11:04 AM CDT Height 23.3 12/20/2020 11:04 AM CDT Body Mass Index documented in this encounter Functional Status Date of Assessment Functional Status Response 12/10/2020 Does the patient have a hearing impairment: No documented as of this encounter Discharge Summaries * Tina Cortez PA-C - 12/25/2020 7:49 AM CDT Physician Discharge Summary Name: Carli Koroma Date Of : 1945 Age: 75 years Admit date: 12/07/2020 Discharge date: 12/25/2020 Attending Physician: Dario Webster MD Physician Summary completed by: Tina Cortez PA-C Reason for hospitalization: Chest pain [R07.9] Significant PMH: No past medical history on file. Allergies: Crestor [rosuvastatin] Admission Physical Exam notable for: Chest pain [R07.9] Admission Lab/Radiology studies notable for: Intraop LVEF 10% Brief Hospital Course: Ms. Carli Koroma is a 75 y/o female who was admitted fr an outside hospital after undergoing cardiac catheterization for NSTEMI. She was found to have severe multivessel disease and was transferred to [facility]. At this time she was admitted to cardiothoracic [facility]. She underwent pre-operative testing and [facility]. She underwent coronary artery bypass grafting and Right femoral IABP placement with Dr. Dario Webster on 12/16/20. She was monitored in the intensive care unit f ollowing surgery. She was started on pressors and inotropes for acute post-opera tive vasogenic and cardiogenic shock. The IABP was removed on POD #1 and was c/ b loss of pulses in her right foot. Vascular surgery was consulted and she was taken urgently to the OR and underwent R lower extremity thrombectomy. Her RLE pulses returned and there was no evidence of compartment syndrome. She returned to the ICU and was extubated shortly after the procedure. She was diuresed for volume overload and her inotropes were weaned down slowly. The patient was tra nsferred to the cardiothoracic progressive care unit on post operative day #4. Her Milrinone was weaned off and she underwent a repeat TTE that demonstrated an LVEF of 25%. Heart failure was consulted to help with her GDMT. A Life Vest wa s ordered and placed on patient prior to discharge. Physical and Occupational t herapy felt that she would benefit from acute inpatient rehab after discharge. Rehab medicine was consulted and agreed that IPR would be appropriate. She incr eased her activity and oral intake daily. The patient had normal bowel and blad catalina function. She was stable to be discharged to [facility] on po st operative day#9. Her Lifevest is in place and she will continue on Plavix fo r recent NSTEMI. She will continue lasix 40 mg daily, toprol XL 25mg daily, spi ronolactone 25mg daily, and cozaar 25 mg daily per HF recommendations. She has an appointment with Litigation Claim Representative Dr. Eduardo Rod in [place], [place] on 01/01/21. She will f/u with surgery on 01/07/[address] Webster on 01/08/21. 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 Webster - 1. CABG x 2 with COFFMAN to LAD and SV to OM1 (CPT 86800, 23178) 2. Endoscopic Vein [place] (CPT 21565) 3. Right femoral arterial intraaortic balloon pump placement 12/17/20: Dr. Salinas 1. RIGHT LOWER EXTREMITY THROMBECTOMY Significant Diagnostic Studies and Procedures: noted in brief hospital course Consults: Cardiology/HF, Vascular Surgery, Rehab, Anesthesia/CC, Dental Patient Disposition: Via [facility] Patient instructions/medications: Chest 2 Views Standing Status: Future Standing Exp. Date: 12/24/21 Disregard any other contact information included on this order; CORRECT CONTACT INFORMATION: Please cloud images to [facility] Call for questions: [phone] PLEASE Fax results to: [phone] 2 weeks-approximate Reason for exam:(Sign,Symptom,Reason) s/p CABG 12/16/20 Cardiac Diet Limiting unhealthy fats and cholesterol is the most important step you can take in reducing your risk for cardiovascular disease. Unhealthy fats include satura aleksandar and trans fats. Monitor your sodium and cholesterol intake. Restrict your so dium to 2g (grams) or 2000mg (milligrams) daily, and your cholesterol to 200mg d aily. If you have questions regarding your diet at home, you may contact a dietitian a t . Diabetic Diet You should eat between 1600 and 2000 calories per day. This is equal to 60g (g justin) of carbohydrates per meal, and 30g of carbohydrates for a bedtime snack. If you have questions about your diet after you go home, you can call a dietitia n at [phone]. Testing Not Required for Covid-19 DISCHARGE INCISION CARE AFTER LOWER EXTREMITY THROMBECTOMY--HOME CARE Gently clean your leg incision site with soap and water. Make sure that the inci olvin site is completely dry. [place] Dermal Wound Cleanser [place] on your incision site twice daily. If your cl othing rubs on your incision site and is uncomfortable, you may cover that porti on with a gauze dressing or nonstick pad. Your stitches or jordy will be removed 10 to 14 days after your surgery at you r follow up appointment. When sitting or lying down, try to keep leg elevated above the heart, to prevent swelling. If there is an ulcer on the foot or leg, prescribed medication should be used as directed. Don't drive for at least 7 days after your surgery or while you are taking opioi d pain medicine (or if you are still having a lot of leg pain). Please call the Vascular Surgery clinic at [phone] if you have symptoms of: -A recurrence of the same kind of leg or foot pain that you had before the surge ry was performed. -Bleeding that soaks the dressing -[place]echee fluid weeping from the wound -Increased drainage or drainage that is yellow, yellow-green, or foul-smelling -Increased swelling or pain, or redness or swelling in the skin around the wound -A change in the color of the wound, or if streaks develop in a direction away f rom the wound -The area between any stitches opens up -An increase in the size of the wound -A fever of 100.4F (38C) or higher, or as directed by your healthcare provid er -Chills, increased fatigue, or a loss of appetite Follow-up with your Primary Care Provider in the next 1-2 weeks. Follow up: You will be following up with a Nurse Practitioner or Physician from Vascular [facility]. Please call with questions/concerns. Other Activity Restrictions -You should and need to walk daily. Your goal is to walk 30 minutes at at time without stopping for breaks. This is a daily exercise routine that you should st art as soon as you arrive home. Your basic daily activities do not count toward your 30 minute minimum, e.g. housework, toileting, fixing meals. Do not exercise outside in extremely hot or cold temperatures. -Driving: NO driving for 2 weeks or while taking narcotics -Lifting: NO lifting more than 10 pounds (gallon of milk) for 6 weeks. -Monitoring: If you have access to a home blood pressure cuff, record your blood pressure and heart rate daily. Please call if your systolic blood pressure is <90 or >160, OR if your heart rate is <50 or >120 at rest Incision Care and Bathing Instructions Keep your incision(s) clean and dry. [place] your incision with the provided wou nd cleanser twice a day until your incision is healed, or the bottle is empty. It is ok to shower unless otherwise noted. Do not soak in a bath tub, hot tub, pool or herbert for 6 weeks. Do not use creams or lotions on incision until it is fully healed. If your surgeon used Dermabond (skin glue), this will fall off gr adually, do not pick at the glue. If you notice redness, swelling, drainage, fo ul odor, or sutures sticking up through your incision, please call the Cardiotho racic Surgery clinic immediately. [phone] Report These Signs and Symptoms Please contact your doctor for the following symptoms: *Temperature over 100 degrees F *Uncontrolled pain *Drainage with a foul odor *Shortness of breath *Racing or skipping heart beats *Popping or clicking of your breastbone *Suture material sticking up through your incisions *Change in coordination of ability to talk *If you gain more than 2 pounds in 24 hours, or 5 pounds in one week. Primary Care Provider Appoinment Jonn Terry [phone] Call to schedule an appointment with your primary care doctor in 1-2 weeks for a check up and medication review. Cardiology Return Appointment Cardiology [address] [place], [address] Outside Provider Eduardo Rod Appointment date: 01/01/2021 Appointment time: 1:30 PM Cardiothoracic Surgery Follow Up Appointment You will have a chest xray at 1:30pm, with an appointment with Dr. Webster to [facility] at 2:30pm. Where do I go for my x-ray? Enter the main hospital entrance Go past the information desk, past the escalators, to the six-pack of elevators. (If you reach the cafeteria you have gone too far!) Take the elevator to the 2nd floor. Follow the sign for "General Radiology" - you will go down a short hallway. Once your x-ray is complete, return to the main floor and check-in for your appo intment at the Cardiovascular Medicine and [facility] by the main entrance. Provider DARIO WEBSTER [[id number]] Location Cardiology Clinic Appointment date: 01/08/2021 Appointment time: 1:30 PM Cardiac Rehab Your physician has referred you to [facility] Contact [facility] Cardiac Rehabilitation Depart[facility] nt at [phone] to schedule an appointment. If you will be attending cardiac rehab at a different facility, a referral will be sent to the facility of your choice. If you have not heard from that facilit y within 2 weeks after you have been discharged, please call them to schedule an appointment. Referral to outpatient cardiac rehab: Location: [place], [place]([facility] ([phone])) Outside referral faxed: Date Faxed: 12/20/20 Internal referral sent to: Risk Reduction Plan Cardiac Event Personal Risk Factor Reduction Plan Take this sheet to your physician to show treatment recommendations Carli Koroma Admission Date: 12/07/2020 LOS: @LOS@ Blood Pressure Risk Goal: Keep blood pressure below 130/80 Your Numbers: BP Readings from Last 1 Encounters: 12/24/20 : 133/56 Plan: High blood pressure is the single most important risk factor for cardiac e vents because it's the #1 cause of cardiac events. Take medication as prescribe d and monitor your blood pressure. Abnormal lipids (fats in blood) Risk Goal: Total Cholesterol: <200 LDL (bad cholesterol): primary prevention <100 LDL (bad cholesterol): secondary prevention < 70 HDL ("good" cholesterol): >40 for men, >50 for women Triglycerides: <150 Your Numbers: Cholesterol Date Value Ref Range Status 12/08/2020 215 (H) <200 MG/DL Final LDL Date Value Ref Range Status 12/08/2020 141 (H) <100 mg/dL Final HDL Date Value Ref Range Status 12/08/2020 30 (L) >40 MG/DL Final Triglycerides Date Value Ref Range Status 12/08/2020 358 (H) <150 MG/DL Final Plan: Diets high in saturated fat, trans fat and cholesterol can raise blood cho lesterol levels increasing your risk of having a cardiac event. Take medication as prescribed and eat a heart healthy, low sodium diet. Smoking Risk Goals: If you smoke, STOP! Plan: Smoking DOUBLES your risk of having a cardiac event. Quitting can greatly reduce your risk. To register for smoking cessation program call [phone] or visit www.smokefree.gov Diabetes Risk Goal: Non-diabetic: Below 5.7% Goal for diabetic: Less than 7% Your Numbers: Hemoglobin A1C Date Value Ref Range Status 12/07/2020 5.9 4.0 - 6.0 % Final Comment: The ADA recommends that most patients with type 1 and type 2 diabetes maintain an A1c level <7%. Plan: If you have diabetes, even if treated, you are at an increased risk of hav ing a cardiac event. Alcohol Use Risk Goal: Alcohol use can lead to a cardiac event. Plan: For men, limit intake to no more than 2 drinks per day. For women, limit intake to no more than one drink per day. Weight Management Risk Goal: Healthy: BMI is 18.5 to 24.9 Overweight: BMI is 25 to 29.9 Obese: BMI is 30 or higher Morbid Obesity: BMI [...] Your Numbers: Your BMI (Calculated): 24.69 Plan: If you have questions about your diet after you go home, you can call kenny sutherland at [phone] Physical Activity Risk Goal: Patients should have approval by a physician prior to beginning an exercis e program. Plan: Try to get at least 30 minutes of moderate physical activity five days a w otoe[place] or 20 minutes of vigorous physical activity three days a week with your doct or's approval. To the Neurology and the NeuroSurg Discharge order sets set add a new order in t he education section titled "Risk Reduction Plan", in the comments section add t he following (default select this new order for neuro and neuro surg and ensure this information is added to the AVS). Questions About Your Stay For questions or concerns regarding your hospital stay. Call [phone] Discharging attending physician: DARIO WEBSTER [[id number]] Appointment Request: Vascular Service Please schedule a 2-3 week postop appt with Andra Fisher APRN, or Dr. Salinas. N STEMI (12/06) w/ IABP c/b R Popliteal Artery Thrombus; S/P R Popliteal embolectomy 12/17/2020 (Brad) Is this a request appointment for? Vascular Surgery Appointment type: Post Op Was patient seen in hospital by requested consult service? Yes Is the patient established in vascular surgery? Yes With whom? Dr. Salinas Diagnosis or reason for outpatient steph't request NSTEMI (12/06) w/IABP c/b R Popli teal Artery Thrombus inpatient consult; S/P R Popliteal embolectomy 12/17/2020 (Jose Eduardo gonzales) Is this urgent? No Time frame requested for the outpatient steph't (provide range): 2-3 weeks Pager # of the requesting provider if any questions? [phone] Appointment Request: Cardiac Rehab "Ordering of Outpatient Cardiac Rehabilitation includes: - Outpatient Cardiac Rehabilitation per department protocol, 2-3x per week for u p to a total of 36 sessions - Initial evaluation including 6MWT or baseline exercise testing - Psychosocial, fitness, nutritional, medication, and risk factor assessment and education - Development of individualized treatment plans (ITPs) - If patient is diabetic, blood glucose testing as needed per departmental francois col o Blood sugar monitoring and provision of 3 glucose tablets or ? 15 g carbohyd rate snack for hypoglycemia based on departmental protocol - Initiation of all emergency protocols, as indicated per [facility], including, but not limited to o Administration of nitroglycerin .4mg sublingual for persistent, unstable, ne w-onset, or stable angina that doses not resolve after 5 minutes of rest. May repeat up to a total of 3 doses per protocol. o Obtaining a 12-Lead EKG if indicated. o Initiation and/or titration of O2 per departmental protocol for oxygen satur ation <88% via pulse oximeter. - Upon completion of the Cardiac Rehab program criteria, patient may continue in to a maintenance program" Diagnosis Information: CABG Pager # of the requesting provider if any questions? [phone] Current Discharge Medication List START taking these medications Details acetaminophen (TYLENOL) 325 mg tablet Take two tablets by mouth every 6 hours as needed. PRESCRIPTION TYPE: No Print aspirin 81 mg chewable tablet Chew one tablet by mouth daily. Take with food. Qty: 90 tablet, Refills: 0 PRESCRIPTION TYPE: No Print clopiDOGrel (PLAVIX) 75 mg tablet Take one tablet by mouth daily. Qty: 90 tablet PRESCRIPTION TYPE: No Print ezetimibe (ZETIA) 10 mg tablet Take one tablet by mouth at bedtime daily. Qty: 90 tablet, Refills: 0 PRESCRIPTION TYPE: No Print furosemide (LASIX) 40 mg tablet Take one tablet by mouth daily. Qty: 90 tablet, Refills: 0 PRESCRIPTION TYPE: No Print losartan (COZAAR) 25 mg tablet Take one tablet by mouth daily. Qty: 90 tablet, Refills: 0 PRESCRIPTION TYPE: No Print metoprolol XL (TOPROL XL) 25 mg extended release tablet Take one tablet by mouth at bedtime daily. Qty: 90 tablet, Refills: 0 PRESCRIPTION TYPE: No Print potassium chloride SR (K-DUR) 20 mEq tablet Take one tablet by mouth daily. Take with a meal and a full glass of water. Qty: 90 tablet, Refills: 0 PRESCRIPTION TYPE: No Print rosuvastatin (CRESTOR) 10 mg tablet Take one tablet by mouth every 72 hours. Qty: 90 tablet, Refills: 0 PRESCRIPTION TYPE: No Print senna/docusate (SENOKOT-S) 8.6/50 mg tablet Take two tablets by mouth twice semaj y. Qty: 30 tablet, Refills: 0 PRESCRIPTION TYPE: No Print spironolactone (ALDACTONE) 25 mg tablet Take one tablet by mouth daily. Take wit h food. Qty: 90 tablet, Refills: 0 PRESCRIPTION TYPE: No Print traMADoL (ULTRAM) 50 mg tablet Take one-half tablet by mouth every 6 hours as ne eded. Qty: 20 tablet, Refills: 0 PRESCRIPTION TYPE: Print Comments: EPCS Exception due to patient need. CONTINUE these medications which have NOT CHANGED Details allopurinoL (ZYLOPRIM) 100 mg tablet Take 100 mg by mouth daily. Take with food. Indications: treatment to prevent acute gout attack PRESCRIPTION TYPE: Historical Med antiox #8/om3/dha/epa/lut/zeax (PRESERVISION AREDS 2 (OMEGA-3) PO) Take 1 tablet by mouth daily. PRESCRIPTION TYPE: Historical Med gabapentin (NEURONTIN) 300 mg capsule Take 300 mg by mouth five times daily. PRESCRIPTION TYPE: Historical Med SITagliptin-metformin (JANUMET XR) 100-1,000 mg tablet Take 1 tablet by mouth da susan. Indications: type 2 diabetes mellitus PRESCRIPTION TYPE: Historical Med The following medications were removed from your list. This list includes medic ations discontinued this stay and those removed from your prior med list in our system atenoloL (TENORMIN) 100 mg tablet Scheduled appointments: Jan 07, 2021 8:30 AM Post - Op with TRISTEN Keith Surgery: [facility] (Surgery) [address] [place] [phone] Jan 08, 2021 2:30 PM Post - Op with Dario Webster MD Cardiothoracic Surgery: [facility] ([facility]) [address] [facility], [address] [facility] [address] Signed: Tina Cortez PA-C 12/25/2020 cc: Primary Care Physician: Jonn Terry Referring physicians: Emily Toney MD Additional provider(s): Referral to outpatient cardiac rehab: Location: [place], [place]([facility] ([phone])) Outside referral faxed: Date Faxed: 12/20/20 Internal referral sent to: documented in this encounter Discharge Instructions * Patient Instructions* Saroj Ramos RN - 12/09/2020 2:14 AM CDT Images from the original note were not included. Heart Failure Education Summary You have been diagnosed with heart failure. The termheart failuresounds scar y because it suggests the heart is no longer working. But it actually means the heart isn't doing its job as well as it should. Heart failure happens when your heart muscle can't keep up with your body's need for blood flow. Symptoms of hea rt failure can be controlled by changes in your lifestyle and by following your doctor's advice. Additional education resources are available. Please contact your nurse if you would like more information. Home care Activity Ask your health care provider about an exercise program. You can benefit from si mple activities such as walking or gardening. Exercising most days of the week c an make you feel better. Don't be discouraged if your progress is slow at first. Rest as needed and stop activity if you develop symptoms such as chest pain, li ghtheadedness, or significant shortness of breath. Diet Follow a heart healthy diet. And make sure to limit the salt (sodium) in your di et. Salt causes your body to hold water. This makes your heart work harder.Gill it your salt by doing the following: Limit canned, dried, packaged, and fast foods. Don't add salt to your food. Season foods with herbs instead of salt. Watch how much liquids you drink. Drinking too much can make heart failure wo rse. Talk with your health care provider about how much you should drink each da y. Limit the amount of alcohol you drink. It may harm your heart. Women should h ave no more than 1 drink a day and men should have no more than two. Tobacco If you smoke, you'll need to quit. Smoking increases your chances of having a he art attack, which makes heart failure worse. Quitting smoking is the number one thing you can do to improve your health. Enroll in a stop-smoking program to imp rove your chances of success. Talk with your health care providerabout medicin es or nicotine replacement therapy to help you quit smoking. Medicine Take your medicines exactly as prescribed. Learn the names and purpose of each o f your medicines. Keep an accurate medicine list and current dosages with you at all times. Don't skip doses. If you miss a dose of your medicine, take it as so on as you remember. If you miss a dose andit's almost time for your next dose, just wait and take your next dose at the normal time. Don't take a double dose. If you are unsure, call your doctor's office. Beta-blockers (examples: carvedilol, metoprolol XL, bisoprolol) These medicines help reduce heart rate and blood pressure. Taking a beta-doug long-term may reduce the harmful effects of heart failure and may stop it from getting worse. Possible side effects: Fatigue, low blood pressure, dizziness, feeling lighth eaded How to take: Take carvedilol (Coreg) with food. All others may be taken witho ut regards to meals Angiotensin-converting enzyme inhibitors (RINA inhibitors examples: lisinop ril, ramipril, fosinopril) or Angiotensin-receptor blockers (ARBs examples : losartan, valsartan, olmesartan) They help to decrease blood pressure and block certain hormones that can put str ess on the heart. Like beta-blockers, taking an RINA inhibitor or an ARB may redu ce the harmful effects of heart failure and may prevent heart failure from getti ng worse. Possible side effects: Dry cough, low blood pressure, dizziness How to take: Take captopril and moexipril on an empty stomach. All others may be taken without regards to meals. Vasodilators (examples: hydralazine, nitrates) These medicines open up blood vessels in the body. This makes it easier for the heart to pump blood. These medicines improve heart failure symptoms and may prev ent your heart failure from getting worse. Hydralazine and a nitrate may be used when an RINA inhibitor or ARB cannot be taken. Possible side effects: Headache, dizziness, low blood pressure How to take: Do not crush or chew. Imdur and Isordil may be cut in half. Take with a full glass of water Digoxin Digoxin is a medicine that helps the heart pump. It can help patients with heart failure stay out of the hospital. It may also help improve heart failure sympto ms. Possible side effects: nausea, vomiting, blurred vision, low heart rate, dizz iness How to take: Take without regards to meals. Diuretics (examples: furosemide, bumetanide, torsemide) Also known as water pills, these medications help to rid the body of extra water and salt. They can also reduce swelling. Diuretics make it easier for you r heart to pump, because there is less fluid in your body that the heart has to pump. Possible side effects: Increased urination, headache, muscle cramps, dizzines s, photosensitivity How to take: Take early in the day, with or without food. Aldosterone Antagonists (examples: spironolactone, eplerenone) Aldosterone antagonists work by blocking certain hormones that can put stress on the heart. Possible side effects: rash, muscle cramps, dizziness, enlarged or tender shauna asts How to take: Spironolactone should be taken with food to increase absorption. Eplerenone can be taken without regards to meals. Weight monitoring Weigh yourself every day. A sudden weight gain can mean your heart failure is ge tting worse. Weigh yourself at the same time of day and in the same kind of clot hes. Ideally, weigh yourself first thing in the morning after you empty your castro dder, but before you eat breakfast. Your health care provider will show you how to track your weight. He or she will also discuss with you when you should call if you have a sudden, unexpected increase in your weight. In general your health care provider may ask you to report if your weight goes u p by more than3 pounds in 1 day or 5 pounds in 1 week, or whatever weight gain you were told by your doctor. This is a sign that you are retaining more fluid than you should be. Follow-up care Make a follow-up appointment as directed. Depending on the type and severity of heart failure you have, you may need follow-up as early as 7 days from hospital discharge. Keep appointments for checkups and lab tests that are needed to check your medicines and condition. Recognize that your health and even survival depend on your following medical re commendations. Symptoms Heart failure can cause a variety of symptoms, including: Shortness of breath Difficulty breathing at night Swelling in the legs and feet or in the belly (abdomen) Becoming easily fatigued Irregular or rapid heartbeat Weakness or lightheadedness It is important to know what to do if symptoms get worse or if you develop signs of worsening heart failure. When to call your doctor Call your doctor right away if you have any of these signs of worsening heart fa ilure: Sudden weight gain (more than3 pounds in 1 day or 5pounds in 1 week, or w hatever weight gain you were told to report by your doctor) Trouble breathing not related to being active New or increased swelling of your legs or ankles Swelling or pain in your abdomen Breathing trouble at night (waking up short of breath, needing more pillows t o breathe) Frequent coughing that doesn't go away Feeling much more tired than usual When to seek emergency medical attention Call 911 right away if you have: Severe shortness of breath, such that you can't catch your breath even while resting Severe shortness of breath Severe chest pain that does not resolve with rest or nitroglycerin [place], foamy mucus with cough and shortness of breath A continuous rapid or irregular heartbeat Passing out or fainting Stroke symptoms such as sudden numbness or weakness on one side of your face, arm, or leg or sudden confusion, trouble speaking or vision changes * Discharge Instr - Wound/Line/Drain* Tiki Silva RN - 12/16/2020 12:40 PM CDT [place] incisions with provided wound cleanser spray twice daily as instructed. documented in this encounter Medications at Time of Discharge [...] as needed. documented as of this encounter Ordered Prescriptions Start Date End Date Prescription Sig Dispensed Refills 12/25/2020 clopiDOGrel (PLAVIX) 75 Take one 90 tablet 0 mg tablet tablet by mouth daily. 12/25/2020 potassium chloride SR Take one 90 tablet 0 (K-DUR) 20 mEq tablet tablet by mouth daily. Take with a meal and a full glass of water. 12/25/2020 senna/docusate Take two 30 tablet 0 (SENOKOT-S) 8.6/50 mg tablets by tablet mouth twice daily. 12/25/2020 rosuvastatin (CRESTOR) 10 Take one 90 tablet 0 mg tablet tablet by mouth every 72 hours. 12/25/2020 metoprolol XL (TOPROL XL) Take one 90 tablet 0 25 mg extended release tablet by tablet mouth at bedtime daily. 12/25/2020 furosemide (LASIX) 40 mg Take one 90 tablet 0 tablet tablet by mouth daily. 12/25/2020 ezetimibe (ZETIA) 10 mg Take one 90 tablet 0 tablet tablet by mouth at bedtime daily. 12/25/2020 aspirin 81 mg chewable Chew one 90 tablet 0 tablet tablet by mouth daily. Take with food. 12/25/2020 acetaminophen (TYLENOL) Take two 0 325 mg tablet tablets by mouth every 6 hours as needed. 12/25/2020 01/08/2021 traMADoL (ULTRAM) 50 mg Take one-half 20 tablet 0 tablet tablet by mouth every 6 hours as needed. 12/25/2020 01/08/2021 spironolactone Take one 90 tablet 0 (ALDACTONE) 25 mg tablet tablet by mouth daily. Take with food. 12/25/2020 01/08/2021 losartan (COZAAR) 25 mg Take one 90 tablet 0 tablet tablet by mouth daily. documented in this encounter Discharge Disposition Code Departure Means Destination Disposition Wheelchair Rehab Facility (Not [facility]) documented in this encounter Progress Notes * Dario Webster MD - 12/25/2020 11:08 AM CDT No new issues. Stable for discharge with lifevest to inpatient rehab. * Tiki Silva RN - 12/25/2020 10:54 AM CDT 1045 - Reviewed discharge instructions, medications, follow-up appt with pt and pt's family. Pt and family states verbal understanding - no questions. IV and Tele dc'd. Chest tube sutures dc'd. LifeVest on pt. Inter facility transfer p acket complete and given to pt's family as they will be providing transport to h er facility this am. When ready, pt taken to the front door by hospital staff. * Pearl Fuller RN - 12/25/2020 10:40 AM CDT [facility] Callback number provided for further questions. * Tina Cortez PA-C - 12/25/2020 7:11 AM CDT Cardiothoracic Surgery Progress Note Carli Koroma Today's Date: 12/25/2020 Admission Date: 12/07/2020 LOS: 18 days 12/16/2020 Procedures: 1. CABG x 2 with COFFMAN to LAD and SV to OM1 (CPT 19419, 94108) 2. Endoscopic Vein [place] (CPT 90118) 3. Right femoral arterial intraaortic balloon pump placement 4. Transesophageal echocardiography 12/17/2020 Procedures: Thrombus involving the popliteal and anterior tibial arteries. Thrombectomy perf ormed with 3Fr Kasia balloon with return of distal pulses. 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 Wants covid vaccine if available. Overnight Events: No acute events Assessment/Plan: Neuro Alert and oriented, pain controlled. Mild delirium in CTI. cont chalo onin. No seroquel for now d/t prolonged QTc. Holding narcotics. Continue schedul ed APAP with PRN low dose tramadol. Cont Gabapentin 300 mg Q8H. 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 CV SR with BBB rate 80-90's. SBP 100s-130s. IABP pulled 12/17. Epi weaned off 12/18, Milrinone off 12/20. Cont Toprol XL 25mg QHS, losartan 25 q day, bASA, zet ia, crestor q 72 hrs. Intra op AIDAN LVEF 20%; post-op LVEF 25%. Repeat TTE 12/20: The calculated ejection fraction is 25%. Patient is wearing LifeVest. HF signed off 12/24. Cont Plavix for NSTEMI. Vascular: s/p R popliteal thrombectomy for acute thrombus following IABP removal 12/17. Pedal pulses restored and pulses now easily palpable. No need for AC per vascular surgery. Cont Plavix. Will follow-up with Vascular as outpatient. Resp SpO2 96% on RA. Continued small L pleural effusion, improved atelectasi s/pulm edema. Cont IS, aggressive pulm toilet. Renal Baseline sCr. 0.83. Scr today 0.77. Continue lasix 40 PO QD and [place]leman nolactone 25mg. UOP 1.5L/24hr, net -1.3L/24hr, Weight -5kg from admit. Na 139/ k 4.2/ Mg 2.0. Monitor lytes and replace PRN per protocol. GI - +BM 12/24. ADAT, continue post op bowel regimen. ID Afebrile. Wbc 8.9. Requesting covid vaccine. Heme Hgb 10.7, plt 316. Continue foot pumps for DVT prophylaxis, SQ Heparin. FEN replace Mg and K to minimize the risk of cardiac arrhythmias. Hgb A1C 5. 9%, on sitagliptin/metformin TUGBOAT OPERATOR, restarted sitafliptin and reduce to SSI to lo w dose. FSBS 121-163. Activity ambulated 250-300ft yesterday. OT/PT following. Rehab consult - p gloria for discharge to [facility]. Disposition: LifeVest in place - appreciate HF recs. Discharge to [facility] today. Co nt Plavix at discharge for h/o NSTEMI. Prophylaxis Review: Lines: No Antibiotic Usage: No VTE: Pharmacological prophylaxis; SQ Heparin and Mechanical prophylaxis; Foot p ump Urinary Catheter: No KELLEN Madrigal/pager [phone] 12/25/2020 Subjective: HPI: Carli Koroma is a 75 y.o. female who initially presented to outside hospit al in [place], [place] on 12/06/20 reporting chief complaint of chest pain, shortness of breath, nausea with diaphoresis. She was found to have elevated troponin wit h NSTEMI; went to clinical laboratory technician for IABP placement. Her IABP was placed to SFA and de veloped a leak; therefore it was discontinued to prior to her transfer to [facility]. She was also found to have elevated BNP of927 with HFrEF (30%) on echocardiog erika. Past medical history includes HTN, HLD, DM 2, CKD II, neuropathy.She is n ow s/p CABG x [address] Webster on 12/16/20. 12/17: R IABP removal. Acute popliteal thrombus s/p thrombectomy with vascular burns rgery. Epi 0.06, milrinone 0.25. Work towards extubation. 12/18: epi @ 0.03 mcg/kg/min (slow wean to off), lasix 20 mg IV BID, d/c mediasti nal CTs, MDCF. Epi off. 12/19: Milrinone 0.125mcg/kg/min, pull CTs, cont scheduled diuretics, re-engage H eart Failure 12/20: milrinone weaned off Objective: Medications: Scheduled Meds:allopurinoL (ZYLOPRIM) tablet 100 mg, 100 mg, Oral, QDAY aspirin chewable tablet 81 mg, 81 mg, Oral, QDAY clopiDOGrel (PLAVIX) tablet 75 mg, 75 mg, Oral, QDAY ezetimibe (ZETIA) tablet 10 mg, 10 mg, Oral, QHS furosemide (LASIX) tablet 40 mg, 40 mg, Oral, QDAY gabapentin (NEURONTIN) capsule 300 mg, 300 mg, Oral, Q8H heparin (porcine) PF syringe 5,000 Units, 5,000 Units, Subcutaneous, Q8H insulin aspart (U-100) (NOVOLOG FLEXPEN U-100 INSULIN) injection PEN 0-6 Units, 0-6 Units, Subcutaneous, ACHS (22) lidocaine (LIDODERM) 5 % topical patch 1 patch, 1 patch, Topical, QDAY losartan (COZAAR) tablet 25 mg, 25 mg, Oral, QDAY melatonin tablet 3 mg, 3 mg, Oral, QHS metoprolol XL (TOPROL XL) tablet 25 mg, 25 mg, Oral, QHS polyethylene glycol 3350 (MIRALAX) packet 17 g, 1 packet, Oral, BID rosuvastatin (CRESTOR) tablet 10 mg, 10 mg, Oral, Q72H* senna/docusate (SENOKOT-S) tablet 2 tablet, 2 tablet, Oral, BID SITagliptin (JANUVIA) tablet 100 mg, 100 mg, Oral, QDAY spironolactone (ALDACTONE) tablet 25 mg, 25 mg, Oral, QDAY Continuous Infusions: PRN and Respiratory Meds:acetaminophen Q6H PRN OR acetaminophen Q6H PRN, alu m/mag hydroxide/simeth Q4H PRN, bisacodyL QDAY PRN, hydrALAZINE Q6H PRN, lidocai ne PF PRN, magnesium sulfate PRN OR magnesium oxide PRN, meclizine TID PRN, milk of magnesia (CONC) QDAY PRN, nalOXone PRN, ondansetron Q6H PRN OR ondan setron (ZOFRAN) IV Q6H PRN, potassium chloride SR PRN OR potassium chloride PRN OR potassium chloride in water PRN, traMADoL Q6H PRN Vital Signs: Last Filed Vital Signs: 24 Hour Ra nge BP: 127/71 (12/250) Temp: 36.3 C (97.4 F) (12/25 040) Pulse: 86 (12/25 0400) Respirations: 16 PER MINUTE (12/26 399) SpO2: 96 % (12/26 399) BP: (100-133)/(49-71) Temp: [36.3 C (97.4 F)-36.8 C (98.2 F)] Pulse: [80-95] Respirations: [16 PER MINUTE] SpO2: [95 %-96 %] Intensity Pain Scale (Self Report): Asleep (12/24/20 2345) Vitals: 12/23/20 0700 12/24/20 0400 12/25/20 0600 Weight: 59.1 kg (130 lb 6.4 oz) 58.4 kg (128 lb 12.8 oz) 57.8 kg (127 lb 6.4 oz) Intake/Output Summary: (Last 24 hours) Intake/Output Summary (Last 24 hours) at 12/25/2020 0711 Last data filed at 12/25/2020 0700 Gross per 24 hour Intake 540 ml Output 1500 ml Net -960 ml Physical Exam: Neuro: A&Ox4 Cardiovascular: RRR no rub or murmur Respiratory: diminished bases GI: soft, NT, active BS Extremities: trace BLE edema, peripheral pulses palpable, R groin bruising - no hematoma, R thigh bruising (old) Incisions: Sternal incision dressing, dry and intact. No crepitus or sternal ins tability. Pertinent Meds: Taking Reason for Not Taking 1. Aspirin yes 2. B-Doug yes 3. Statin yes 4. RINA/ARB yes LABS: Recent Labs 12/23/20 0449 12/24/20 0428 12/25/20 0558 NA 139 137 139 K 4.2 4.6 4.2 CL 103 102 102 CO2 29 26 28 GAP 7 9 9 BUN 15 13 14 CR 0.69 0.81 0.77 GLU 133* 142* 135* CA 8.7 9.6 9.1 MG 1.9 2.1 2.0 Recent Labs 12/23/20 0449 12/24/20 0428 12/25/20 0558 WBC 8.2 9.5 8.9 HGB 10.1* 10.4* 10.7* HCT 29.8* 31.0* 32.1* PLTCT 347 324 316 Estimated Creatinine Clearance: 58.5 mL/min (based on SCr of 0.77 mg/dL). Vitals: 12/23/20 0700 12/24/20 0400 12/25/20 0600 Weight: 59.1 kg (130 lb 6.4 oz) 58.4 kg (128 lb 12.8 oz) 57.8 kg (127 lb 6.4 oz) No results for input(s): PHART, PO2ART in the last 72 hours. Invalid input(s): PC02A Radiology and Other Diagnostic Procedures Review: Reviewed * Jeannine Madsen, PREETHI - 12/25/2020 5:43 AM CDT Pt AOx4. SR c BBB on tele. Tolerating RA. Pt reported no pain. No N/V reported. Adequate UOP, inaccurate d/t missed hat. -BM. Surgical incisions CDI. Fall bundle in place. Call light within reach. Pt has no complaints at this time . * Bambi Woodson RN - 12/24/2020 6:18 PM CDT I have reviewed the notes, assessments, and/or procedures performed by Mary casey RN, and concur with her/his documentation unless otherwise noted. * Khushboo Bearden RN - 12/24/2020 6:01 PM CDT Assumed care at 0700. A&O x 4. VSS per patient trend. Tolerating RA. SR c BBB on tele. Patient reports no pain. Surgical incisions CDI. Denies nausea/vomiting. Last BM 12/23/20. Adequate UOP. Stand by assist. Assessments completed and documented per flow sheet. * Chaitanya Martinez OT - 12/24/2020 3:31 PM CDT OCCUPATIONAL THERAPY PROGRESS NOTE Name: Carli Koroma : 1945 Age: [age] y.o. Admission Date: 12/07/2020 LOS: 17 days Mobility Progressive Mobility Level: Walk in hallway Distance Walked (feet): 100 ft(+75+75) Level of Assistance: Assist X1 Assistive Device: Walker Time Tolerated: 31-60 minutes Activity Limited By: Fatigue Subjective Pertinent Dx per Physician: 75yo female who presented to OSH for shortness of a ir. She underwent cardiac catheterization for NSTEMI and was found to have sever e multivessel CAD. An IABP was placed, significant leak from her IABP and she wa s transferred to without IABP. s/p CABG 12/16, extubated 12/17; IABP removal; Acute loss in RLL pulses following IABP removal, s/p thrombectomy via popliteal exposure by vascular 12/17 Precautions: Sternal Precautions Pain / Complaints: Patient agrees to participate in therapy Objective Psychosocial Status: Willing and Cooperative to Participate Persons Present: Daughter Home Living Type of Home: House Home Layout: One Level;Able to Live on Main Level w/Bedrm/Bathrm Access Bathroom Shower / Tub: Tub/Shower Unit Bathroom Toilet: Standard Bathroom Equipment: Grab Bars in Shower;Built-in Seat in Shower;Hand-Held Shower Bathroom Accessibility: Accessible via Walker Prior Function Level Of [place]: Independent with ADLs and functional transfers;Independen t with homemaking w/ ambulation Lives With: Spouse Receives Help From: Spouse;Family ADL's Where Assessed: In Bathroom Toileting Assist: Minimal Assist Toileting Deficits: Perineal Hygiene ADL Mobility Bed Mobility: Supine to Sit: Standby assist Transfer Type: Sit to stand Transfer: Assistance Level: From;Bed;Standby assist Transfer: Assistive Device: Roller walker Transfer: Type of Assistance: For safety considerations Other Transfer Type: Sit to/from stand Other Transfer: Assistance Level: To/from;Minimal assist(bench) Other Transfer: Assistive Device: Roller walker Other Transfer: Type of Assistance: For strength deficit End of Activity Status: Up in chair Sitting Balance: Static sitting balance;Dynamic sitting balance;Standby assist Standing Balance: Static standing balance;Standby assist Gait Distance: 100 feet(+75+75) Gait: Assistance Level: Minimal assist Gait: Assistive Device: Roller walker Gait Comments: two seated rest breaks Activity Tolerance Endurance: 2/5 Tolerates 10-20 Minutes Exercise w/Multiple Rests Cognition Overall Cognitive Status: WFL to Adequately Complete Self Care Tasks Safely Assessment Assessment: Decreased ADL Status;Decreased Endurance;Decreased Self-Care Trans;D ecreased High-Level ADLs Prognosis: Good Goal Formulation: Patient AM-PAC 6 Clicks Daily Activity Inpatient Putting on and taking off regular lower body clothes?: A Little Bathing (Including washing, rinsing, drying): A Lot Toileting, which includes using toilet, bedpan, or urinal: A Little Putting on and taking off regular upper body clothing: A Little Taking care of personal grooming such as brushing teeth: A Little Eating meals?: None Daily Activity Raw Score: 18 Standardized (t-scale) score: 38.66 CMS 0-100% Score: 46.65 CMS G Code Modifier: CK Plan OT Frequency: 2-3x/week OT Plan for Next Visit: Standing ADLs; out of room mobility. ADL Goals Patient Will Perform All ADL's: w/ Modified [place] Patient Will Perform Grooming: w/ Mod Independent Patient Will Perform LE Dressing: w/ Modified Independent Functional Transfer Goals Pt Will Perform All Functional Transfers: Modified Independent OT Discharge Recommendations Recommendation: Inpatient setting Therapist: CARLOS Castellon/[place] [id number] Date: 12/24/2020 * Nichole Sykes, PT - 12/24/2020 1:20 PM CDT PHYSICAL THERAPY PROGRESS NOTE Name: Carli oKroma : 1945 Age: [age] y.o. Admission Date: 12/07/2020 LOS: 17 days Mobility Patient Turn/Position: Self;Chair Progressive Mobility Level: Walk in hallway Distance Walked (feet): 100 ft+ 75ft + 75ft Level of Assistance: Assist X1 Assistive Device: Walker Time Tolerated: 31-60 minutes Activity Limited By: Fatigue Subjective Significant hospital events: 75yo female who presented to OSH for shortness of air. She underwent cardiac catheterization for NSTEMI and was found to have kiana re multivessel CAD. An IABP was placed, significant leak from her IABP and she w as transferred to without IABP. s/p 2v CABG 12/16. 12/17-extubated; IABP remov al; Acute loss in RLL pulses following IABP removal, s/p thrombectomy via poplit eal exposure by vascular. Mental / Cognitive Status: Alert;Oriented;Cooperative;Follows Commands Persons Present: Daughter Comments: Life Vest Ambulation Assist: Independent Mobility in Community without Device Patient Owned Equipment: Single Point Cane Home Situation: Lives with Family Type of Home: House Entry Stairs: 3-5 Stairs In-Home Stairs: No Stairs Bed Mobility/Transfer Bed Mobility: Supine to Sit: Minimal Assist Transfer Type: Sit to/from Stand Transfer: Assistance Level: To/From;Bed;Minimal Assist Transfer: Assistive Device: Roller Walker Transfers: Type Of Assistance: Verbal Cues;To Maintain Precautions;For Strength Deficit;For Safety Considerations End Of Activity Status: Up in Chair(alarm on) Gait Gait Distance: 100 feet(+ 75 + 75) Gait: Assistance Level: Minimal Assist Gait: Assistive Device: Roller Walker Activity/Exercise -Repeated partial supine to sits with emphasis on rolling, maximizing independen ce with bed mobility, Completed x6 repetitions. -Sit to stands from edge of bed with heart pillow x10 reps. Increased time for s ession as noted gentle alarm with Life Vest, called company and no events occure d. -Completed multiple bouts of ambulation in hallway with seated breaks as needed. Assessment/Progress Comments: Patient progressing with mobility but limited by impaired endurance an d generalized weakness. Patient endorsing hesitancy regarding mobility 2/2 leland rns with new Life Vest. AM-PAC 6 Clicks Basic Mobility Inpatient Raw Score: 18 Standardized (T-scale) Score: 41.05 Functional Stages Basic Mobility Score Interpretation 34-51 Limited Mobility Indoors: Your score suggests significant difficulty in mo ving about independently and the need for assistance. You may be able to move a bout in a small area of your home that has been adapted to eliminate safety haza rds. You may have difficulty moving from a sitting to standing position, climbi ng stairs and you may have a great deal of difficulty moving about outdoors and in the community. Goals Goal Formulation: With Patient Time For Goal Achievement: 7 days Patient Will Go Supine To/From Sit: Independently, Ongoing Patient Will Transfer Bed/Chair: Independently Patient Will Transfer Sit to Stand: Independently, Ongoing Patient Will Ambulate: Greater than 200 Feet, w/ Walker, Independently, Ongoing Patient Will Go Up / Down Stairs: 3-5 Stairs, w/ Minimal Assist Plan Treatment Interventions: Mobility Training;Strengthening;Endurance Training Plan Frequency: 3-5 Days per Week PT Plan for Next Visit: Progress bed mobility, progress ambulation with RW PT Discharge Recommendations Recommendation: Inpatient setting Therapist: Nichole Sykes, PT, DPT [id number] Date: 12/24/2020 * Cheryl Kimbrough - 12/24/2020 9:55 AM CDT 12/24/20 0900 Cardiac Rehab Activity Distance Walked (feet) 300 ft BP Pre-activity 113/68 BP Post-activity 134/69 HR Pre-activity 86 bpm HR Post-activity 92 SaO2 Pre-activity 95 % SaO2 Post-activity 97 O2 Device None (Room Air) Comments Patient walked 300 ft in hallway with 2 seated rest breaks, tolerated w ell, tolerated well. Patient assisted back to room at completion and into chair. Next walk goal: 360 ft. Mobility Progressive Mobility Level 9 Level of Assistance Assist X1 Assistive Device Walker Time Tolerated 11-30 minutes Activity Limited By Fatigue * Dario Webster MD - 12/24/2020 8:58 AM CDT Doing well. Has a left pleural effusion, will cont ongoing diuresis. Will plan f or IPR discharge when bed avail. * Neymar Potter, SHOE STAINER-STRAIGHTENER HAND - 12/24/2020 8:00 AM CDT Heart Failure Progress Note Date of Service: 12/24/2020 Carli Koroma is a 75 y.o. y.o. female. 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 female who initially presented to outside hospital in [place], [place] on 12/06/20 reporting chief complaint of chest pain, shortness of b reath, nausea with diaphoresis. She was found to have elevated troponin with NST BONY; went to clinical laboratory technician for IABP placement. Her IABP was placed to SFA and develop ed a leak; therefore it was discontinued to prior to her transfer to [facility]. She was also found to have elevated BNP of 927 with HFrEF (30%) on echocardiogram. P ast medical history includes HTN, HLD, DM 2, CKD II, neuropathy. She is now s/p CABGx2(with COFFMAN to LAD and RSVG to OM ) by Dr Webster on 12/16/20. Recommendations/Plan: 1. Diuretics: Lasix 40 mg po daily (plan to d/c on this dose) 2. Continue Toprol XL 25 mg qhs (plan to d/c on this dose) 3. Continue Losartan 25 mg daily (plan to d/c on this dose) 4. Continue Spironolactone 25 mg daily (plan to d/c on this dose) 5. Continue strict I&Os, daily standing scale weights 6. Pt to wear LifeVest upon discharge 7. Will sign off; please call with questions 8. Follow up: Appointment scheduled to establish care with Dr Eduardo Rod on at 1:30 in [place], [place] At Discharge: 1. Follow Up: appointment with a member of the HF team within 7 calendar days of discharge. 2. Cardiac Rehab upon follow up Pt seen and examined; discussed with Dr Isabel Potter, AJ-STRAIGHTENER HAND Pager # [phone] Available on Voalte Assessment: Acute on chronic systolic HFrEF, EF: 30%. Cardiogenic shock (resolved) Major Complications or Comorbidities (LONGTERM): acute/ acute on chronic systolic and /or diastolic heart failure NYHA functional class III (marked limitation of physical activity - comfortable at rest, but less than ordinary activity causes symptoms of HF e.g., getting mariano ssed or standing from a sitting position), ACC Stage C (structural heart disease with prior or current symptoms of HF). She presents with signs of hypervolemia with left ventricular failure without s igns of low flow state. Admission BNP: 927 on 12/06 (OSH) Prior to admission diuretic regimen: None Strict I&O's: Net Total stay:+537 mL Last 24 hrs Net: +600 mL Inaccurate I&Os Vitals: 12/22/20 0358 12/23/20 0700 12/24/20 0400 Weight: 60.3 kg (133 lb) 59.1 kg (130 lb 6.4 oz) 58.4 kg (128 lb 12.8 oz) Goal Dry Weight: ~128 lbs Guideline Based Heart Failure Therapies: GDMT TUGBOAT OPERATOR Changes BB Atenolol 100 mg po daily Metoprolol 25 mg in AM, 12.5 mg in PM 12/11 Toprol XL 25 mg qhs 12/16 held post op 12/18: Metoprolol tartrate 12.5 mg bid 12/22: Switch to metoprolol succinate 12.5 mg bid 12/23: change to Toprol XL 25 mg qhs ACEI/ARB/ARNI Previously on Irbesartan 12/21: Losartan 12.5 mg daily 12/24: Losartan 25 mg daily SGLT-2 Inhibitor N/A *consider initiating in outpt setting Aldosterone Antagonist N/A 12/11 Starting Spironolactone 12.5 mg daily 12/13 increase suleman to 25 mg daily 12/16 held post op 12/20: Start spironolactone 25 mg daily Hydralazine/Nitrate N/A Ivabradine N/A HRMT N/A *pt may benefit from BUS COMPANY MANAGER-D if EF does not improve with GDMT Anticoagulation for Afib/flutter N/A Cardiac Rehab Evaluation for LVEF <40% Will plan for upon discharge Diuretic Therapy Prior to admission dose N/A Given on admission 12/07 IV lasix 40 mg x1 Daily Dosing 12/08-12/15 Lasix 20 mg po daily 12/16 held post op 12/18-12/22: Lasix 20 mg IV twice daily 12/23-12/24: Lasix 40 mg po daily Cardiomyopathy, ischemic - likely secondary to ischemic etiology after recent VA - no TUGBOAT OPERATOR GDMT; will start with low dose Toprol XL and Spironolactone, consider l ow dose Losartan after surgery (see table above) -See echocardiogram results above 12/20 - pt will have continued up titration of GDMT and may require BUS COMPANY MANAGER-D in outpt set ting w/ LBBB on EKG > pt will need LifeVest at discharge NSTEMI, CAD - pt presented to OSH w/ NSTEMI; had IABP placed initially; transferred to [facility] for further management - 12/07 admit troponin >22.9>18.63>12.99>11.67>4/59>0.64 on 12/12 - 12/16 s/p CABG x 2 with COFFMAN to LAD and RSVG to OM with Dr Jorge LÓPEZ - 12/08 lipid panel: Cholesterol 215, trigs 358, HDL 30, LDL 141 - no TUGBOAT OPERATOR statins; has failed atorvastatin and rosuvastatin 5 and 10 mg with repo rts of myalgia pain (resolved after stopping) consider trial of pravastatin 5-10 mg daily as lowest side effect profile and titrate up to highest tolerated dose - currently on rosuvastatin 10 mg Q 72 hours and zetia 10 mg daily > managed per primary team DM 2 - 12/07/20 HgbA1c 5.9 - TUGBOAT OPERATOR Janumet XR on hold during admission - Sliding scale Insulin while admitted - pt w/ mod amt neuropathy; takes gabapentin 300 mg 5x/day at home - currently receiving gabapentin 300 mg at noon, 600 mg at 1700, 600 mg qhs > managed per primary team > Plan to initiate SGLT2 inhibitor as outpatient CKD II - admit creatinine 0.71-->0.69>>>>0.72>0.67>0.69>0.81 today (12/24) > daily labs per primary team Post-op Course of Events 12/16 IABP inserted post operatively, removed 12/17 Subjective: Today she is resting in chair at bedside; daughter in room. She states "I am aletha dy to go home"; expecting to discharge tomorrow. She is ambulating on nursing un it w/o problems. Denies feeling short of breath, no dizziness/lightheadedness, n o lower extremity edema, no abdominal distention. She denies having incisional p ain. Objective: Vital Signs: Last Filed Vital Signs: 24 Hour Range BP: 118/72 (12/24 353) Temp: 36.4 C (97.5 F) (12/24 353) Pulse: 82 (12/24 035) Respirations: 16 PER MINUTE (12/24 353) SpO2: 98 % (12/24 353) BP: (108-140)/(52-72) Temp: [36.4 C (97.5 F)-36.9 C (98.5 F)] Pulse: [82-93] Respirations: [16 PER MINUTE-18 PER MINUTE] SpO2: [96 %-100 %] Physical Exam: General Appearance: thin, no distress, sitting in chair beside bed Skin: warm and dry, pale Digits and Nails: no cyanosis or clubbing Neck Veins: JVP ~6cm, HJR negative Chest Inspection: sternal incision well approximated, open to air, no redness/dr ng noted Respiratory Effort: breathing comfortably, no respiratory distress Auscultation: lungs clear to auscultation, no rales or rhonchi, no wheezing Cardiac Rhythm: regular rhythm and normal rate Cardiac Auscultation: S1, S2 present Murmurs: no murmur Lower Extremity Edema: no lower extremity edema Peripheral Circulation: distal upper and lower extremities warm and well-perfuse d Abdominal Exam: soft, non-tender, no masses, bowel sounds present Orientation: alert and answering questions appropriately Neurologic Exam: A&Ox4, moves all extremities equally and spontaneously Laboratory Review: CBC w/Diff Lab Results Component Value Date/Time WBC 9.5 12/24/2020 04:28 AM RBC 3.27 (L) 12/24/2020 04:28 AM HGB 10.4 (L) 12/24/2020 04:28 AM HCT 31.0 (L) 12/24/2020 04:28 AM MCV 94.8 12/24/2020 04:28 AM MCH 31.9 12/24/2020 04:28 AM MCHC 33.6 12/24/2020 04:28 AM RDW 15.9 (H) 12/24/2020 04:28 AM PLTCT 324 12/24/2020 04:28 AM MPV 7.1 12/24/2020 04:28 AM Lab Results Component Value Date/Time NEUT 55 12/16/2020 05:33 AM ANC 4.50 12/16/2020 05:33 AM LYMA 30 12/16/2020 05:33 AM ALC 2.40 12/16/2020 05:33 AM IMAN 11 12/16/2020 05:33 AM AMC 0.90 (H) 12/16/2020 05:33 AM EOSA 3 12/16/2020 05:33 AM AEC 0.30 12/16/2020 05:33 AM BASA 1 12/16/2020 05:33 AM ABC 0.00 12/16/2020 05:33 AM Chemistry Lab Results Component Value Date/Time NA 137 12/24/2020 04:28 AM K 4.6 12/24/2020 04:28 AM CL 102 12/24/2020 04:28 AM CO2 26 12/24/2020 04:28 AM GAP 9 12/24/2020 04:28 AM BUN 13 12/24/2020 04:28 AM CR 0.81 12/24/2020 04:28 AM GLU 142 (H) 12/24/2020 04:28 AM Lab Results Component Value Date/Time CA 9.6 12/24/2020 04:28 AM ALBUMIN 3.8 12/16/2020 05:33 AM TOTPROT 6.8 12/16/2020 05:33 AM ALKPHOS 62 12/16/2020 05:33 AM AST 21 12/16/2020 05:33 AM ALT 14 12/16/2020 05:33 AM TOTBILI 0.8 12/16/2020 05:33 AM GFR >60 12/24/2020 04:28 AM GFRAA >60 12/24/2020 04:28 AM 12/23 Chest X-Ray: 1. Persistent mild cardiomegaly with mild vascular congestion, resolving edema and small bilateral pleural effusions. 2. Low lung volumes with patchy bibasilar opacities, likely atelectasis. Tele/ECG: SR, LBBB, HR 80s Echocardiogram Details: Echo Results (Last 3 results in the past 3 years) Echo EF LVIDD LA Size IVS LVPW Rest PAP (12/20/20) 25 (12/13/20) 6.11 (12/13/20) 3.83 (12/13/20) 0.92 (12/13/20) 0.99 (12/10/20) 34 (12/13/20) 30 (12/10/20) 5.50 (12/10/20) 3.70 (12/10/20) 1.10 (12/10/20) 0.80 (12/10/20) 30 12/20/20 Echo: Severely dilated left ventricle with severely reduced systolic function. The ca lculated ejection fraction is 25%. There are segmental wall motion abnormaliti es, as coded in the diagram below. The right ventricular size is normal with mildly reduced systolic function. Normal biatrial size No major valvular abnormalities on limited views of interrogation. No pericardial effusion There were no major changes compared with prior study on 12/13/2020. * Tina Patiño PA-C - 12/24/2020 6:55 AM CDT Cardiothoracic Surgery Progress Note Carli Koroma Today's Date: 12/24/2020 Admission Date: 12/07/2020 LOS: 17 days 12/16/2020 Procedures: 1. CABG x 2 with COFFMAN to LAD and SV to OM1 (CPT 36215, 94013) 2. Endoscopic Vein [place] (CPT 96856) 3. Right femoral arterial intraaortic balloon pump placement 4. Transesophageal echocardiography 12/17/2020 Procedures: Thrombus involving the popliteal and anterior tibial arteries. Thrombectomy perf ormed with 3Fr Kasia balloon with return of distal pulses. 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 Mild delirium in CTI. cont chalo onin. No seroquel for now d/t prolonged QTc. Holding narcotics. Continue schedul ed APAP with PRN low dose tramadol. Cont Gabapentin 300 mg Q8H. 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 CV SR with BBB rate 80's. SBP 110s-120s. IABP pulled 12/17. Epi weaned off , Milrinone off 12/20. Cont Toprol XL 25mg QHS, losartan 25 q day, bASA, zetia, crestor q 72 hrs. Intra op AIDAN LVEF 20%; post-op LVEF 25-30%. Repeat TTE 12/20: The calculated ejection fraction is 25%. Patient is wearing LifeVest. HF followi ng. Vascular: s/p R popliteal thrombectomy for acute thrombus following IABP removal 12/17. Pedal pulses restored and pulses now easily palpable. No need for AC per vascular surgery. Will follow-up with Vascular as outpatient. Resp on RA. Continued small L pleural effusion, improved atelectasis/pulm ed dalila. Cont IS, aggressive pulm toilet. Renal Baseline sCr. 0.83. Scr today 0.81. Continue lasix 40 PO QD for volum e overload. UOP inaccurate d/t missing hat. Weight down 4kg from admit. GI - ADAT, continue post op bowel regimen. LBM 12/22. ID Afebrile. Wbc 9.5. Heme Hgb 10.4 stable. Continue foot pumps for DVT prophylaxis, SQ Heparin. FEN replace Mg and K to minimize the risk of cardiac arrhythmias. Hgb A1C 5. 9%, on sitagliptin/metformin TUGBOAT OPERATOR, restarted sitafliptin and reduce to SSI to lo w dose. Activity ambulated 240ft yesterday. OT/PT consulted. Rehab consulted- will discharge to [facility]. Disposition: LifeVest in place- appreciate HF recs. Discharge to IPR when bed a vailable- likely 12/25. Need to discuss starting Plavix at discharge for h/o NSTE VA with Dr. Webster. Prophylaxis Review: Lines: No Antibiotic Usage: No VTE: Pharmacological prophylaxis; SQ Heparin and Mechanical prophylaxis; Foot p ump Urinary Catheter: No Tina Patiño PA-C Voalte/pager [phone] 12/24/2020 Subjective: HPI: Carli Koroma is a 75 y.o. female who initially presented to outside hospit al in [place], [place] on 12/06/20 reporting chief complaint of chest pain, shortness of breath, nausea with diaphoresis. She was found to have elevated troponin with NSTEMI; went to clinical laboratory technician for IABP placement. Her IABP was placed to SFA and de veloped a leak; therefore it was discontinued to prior to her transfer to [facility]. She was also found to have elevated BNP of927 with HFrEF (30%) on echocardiog erika. Past medical history includes HTN, HLD, DM 2, CKD II, neuropathy.She is n ow s/p CABG x [address] Webster on 12/16/20. 12/17: R IABP removal. Acute popliteal thrombus s/p thrombectomy with vascular burns rgery. Epi 0.06, milrinone 0.25. Work towards extubation. 12/18: epi @ 0.03 mcg/kg/min (slow wean to off), lasix 20 mg IV BID, d/c mediasti nal CTs, MDCF. Epi off. 12/19: Milrinone 0.125mcg/kg/min, pull CTs, cont scheduled diuretics, re-engage H eart Failure 12/20: milrinone weaned off Objective: Medications: Scheduled Meds:allopurinoL (ZYLOPRIM) tablet 100 mg, 100 mg, Oral, QDAY aspirin chewable tablet 81 mg, 81 mg, Oral, QDAY ezetimibe (ZETIA) tablet 10 mg, 10 mg, Oral, QHS furosemide (LASIX) tablet 40 mg, 40 mg, Oral, QDAY gabapentin (NEURONTIN) capsule 300 mg, 300 mg, Oral, Q8H heparin (porcine) PF syringe 5,000 Units, 5,000 Units, Subcutaneous, Q8H insulin aspart (U-100) (NOVOLOG FLEXPEN U-100 INSULIN) injection PEN 0-6 Units, 0-6 Units, Subcutaneous, ACHS (22) lidocaine (LIDODERM) 5 % topical patch 1 patch, 1 patch, Topical, QDAY losartan (COZAAR) tablet 25 mg, 25 mg, Oral, QDAY melatonin tablet 3 mg, 3 mg, Oral, QHS metoprolol XL (TOPROL XL) tablet 25 mg, 25 mg, Oral, QHS polyethylene glycol 3350 (MIRALAX) packet 17 g, 1 packet, Oral, BID rosuvastatin (CRESTOR) tablet 10 mg, 10 mg, Oral, Q72H* senna/docusate (SENOKOT-S) tablet 2 tablet, 2 tablet, Oral, BID SITagliptin (JANUVIA) tablet 100 mg, 100 mg, Oral, QDAY spironolactone (ALDACTONE) tablet 25 mg, 25 mg, Oral, QDAY Continuous Infusions: PRN and Respiratory Meds:acetaminophen Q6H PRN OR acetaminophen Q6H PRN, alu m/mag hydroxide/simeth Q4H PRN, bisacodyL QDAY PRN, hydrALAZINE Q6H PRN, lidocai ne PF PRN, magnesium sulfate PRN OR magnesium oxide PRN, meclizine TID PRN, milk of magnesia (CONC) QDAY PRN, nalOXone PRN, ondansetron Q6H PRN OR ondan setron (ZOFRAN) IV Q6H PRN, potassium chloride SR PRN OR potassium chloride PRN OR potassium chloride in water PRN, traMADoL Q6H PRN Vital Signs: Last Filed Vital Signs: 24 Hour Ra nge BP: 118/72 (12/24 353) Temp: 36.4 C (97.5 F) (12/24 353) Pulse: 82 (12/24 353) Respirations: 16 PER MINUTE (12/24 353) SpO2: 98 % (12/24 353) BP: (108-140)/(52-72) Temp: [36.4 C (97.5 F)-37.1 C (98.7 F)] Pulse: [82-93] Respirations: [16 PER MINUTE-18 PER MINUTE] SpO2: [96 %-100 %] Vitals: 12/22/20 0358 12/23/20 0700 12/24/20 0400 Weight: 60.3 kg (133 lb) 59.1 kg (130 lb 6.4 oz) 58.4 kg (128 lb 12.8 oz) Intake/Output Summary: (Last 24 hours) Intake/Output Summary (Last 24 hours) at 12/24/2020 0655 Last data filed at 12/23/2020 1600 Gross per 24 hour Intake 400 ml Output 0 ml Net 400 ml Physical Exam: Neuro: A&Ox4 Cardiovascular: RRR no rub or murmur Respiratory: diminished bases GI: soft, NT, active BS Extremities: trace BLE edema, peripheral pulses palpable, R groin bruising - no hematoma, R thigh bruising (old) Incisions: Sternal incision dressing, dry and intact. No crepitus or sternal ins tability. Pertinent Meds: Taking Reason for Not Taking 1. Aspirin yes 2. B-Doug yes 3. Statin yes 4. RINA/ARB yes LABS: Recent Labs 12/22/20 0457 12/23/20 0449 12/24/20 0428 NA 142 139 137 K 4.2 4.2 4.6 CL 105 103 102 CO2 26 29 26 GAP 11 7 9 BUN 23 15 13 CR 0.67 0.69 0.81 GLU 145* 133* 142* CA 9.0 8.7 9.6 MG 2.1 1.9 2.1 Recent Labs 12/22/20 0457 12/23/20 0449 12/24/20 0428 WBC 9.9 8.2 9.5 HGB 10.6* 10.1* 10.4* HCT 30.7* 29.8* 31.0* PLTCT 369 347 324 Estimated Creatinine Clearance: 56.2 mL/min (based on SCr of 0.81 mg/dL). Vitals: 12/22/20 0358 12/23/20 0700 12/24/20 0400 Weight: 60.3 kg (133 lb) 59.1 kg (130 lb 6.4 oz) 58.4 kg (128 lb 12.8 oz) No results for input(s): PHART, PO2ART in the last 72 hours. Invalid input(s): PC02A Radiology and Other Diagnostic Procedures Review: Reviewed * Jeannine Madsen RN - 12/24/2020 5:47 AM CDT Pt AOx4. SR c BBB on tele. Tolerating RA. Pt reported no pain. No N/V reported. Adequate UOP, inaccurate d/t missed hat. -BM. Surgical incisions CDI. Fall bundle in place. Call light within reach. Pt has no complaints at this time . * Bambi Woodson RN - 12/23/2020 6:54 PM CDT Assumed care at 0700. A&Ox4. VSS per pt trend. Tolerating RA. SR BBB on tele. Denies pain. Surgical incisions CDI. Last BM 12/22/20. Inaccurate UOP d/t miss ing the hat. HFR bundle in place. No other needs voiced at this time. Call light within aletha ch. Assessments completed and documented per flowsheet. * Bambi Woodson RN - 12/23/2020 6:53 PM CDT I have reviewed the notes, assessments, and/or procedures performed by Mary casey RN, and concur with her/his documentation unless otherwise noted. * Montserrat Rincon RN - 12/23/2020 2:17 PM CDT 12/23/20 1417 Cardiac Rehab Activity Distance Walked (feet) 250 ft (+ 3 seated rest breaks) BP Pre-activity 109/59 BP Post-activity 114/59 HR Pre-activity 93 bpm HR Post-activity 101 SaO2 Pre-activity 97 % SaO2 Post-activity 99 O2 Device None (Room Air) Comments Pt ambulated 250ft + 3 seated rest breaks with wheeled walker and damaris t x1, pt complained of being fatigued. Pt assisted to chair at completion of wal k. (Next walk goal: 300ft) Mobility Progressive Mobility Level 8 Level of Assistance Assist X1 Assistive Device Walker Time Tolerated 11-30 minutes Activity Limited By Fatigue * Nichelle Choudhary OT - 12/23/2020 1:41 PM CDT OCCUPATIONAL THERAPY NOTE Name: Carli Koroma : 1945 Age: [age] y.o. Admission Date: 12/07/2020 LOS: 16 days Patient declined to participate despite encouragement and education about the ro le and benefits of OT as patient states she just got back from bathroom, feeling overwhelmed with new lifevest. Provided therapeutic listening and encouraged pa tient to reach out to RN or team with any questions or concerns. OT will continu e to follow and provide intervention as indicated. Therapist: CARLOS Joiner/Alva [id number] Date: 12/23/2020 * Montserrat Rincon RN - 12/23/2020 11:28 AM CDT 12/23/20 1127 Cardiac Rehab Activity Comments Attempted to ambulate pt, she declined and asked for me to come back la ter. Will check back this afternoon. * Dario Webster MD - 12/23/2020 8:51 AM CDT Life vest arrangements per HF team, EF was prior 10%. Will need rehab discharge. Overall doing well. * Sumi Bae, PT - 12/23/2020 8:30 AM CDT PHYSICAL THERAPY PROGRESS NOTE Name: Carli Koroma : 1945 Age: [age] y.o. Admission Date: 12/07/2020 LOS: 16 days Mobility Progressive Mobility Level: Walk in hallway Distance Walked (feet): 240 ft Level of Assistance: Assist X1 Assistive Device: Walker Time Tolerated: 11-30 minutes Activity Limited By: Fatigue Subjective Significant hospital events: 75yo female who presented to OSH for shortness of air. She underwent cardiac catheterization for NSTEMI and was found to have kiana re multivessel CAD. An IABP was placed, significant leak from her IABP and she w as transferred to without IABP. s/p 2v CABG 12/16. 12/17-extubated; IABP remov al; Acute loss in RLL pulses following IABP removal, s/p thrombectomy via poplit eal exposure by vascular. Mental / Cognitive Status: Alert;Oriented;Cooperative;Follows Commands Persons Present: Daughter Pain: Patient has no complaint of pain Pain Interventions: Patient agrees to participate in therapy with modifications to session Comments: Room air. Precautions: Sternal Precautions Ambulation Assist: Independent Mobility in Community without Device Patient Owned Equipment: Single Point Cane Home Situation: Lives with Family Type of Home: House Entry Stairs: 3-5 Stairs In-Home Stairs: No Stairs Bed Mobility/Transfer Comments: Patient headed to the bathroom upon arrival Transfer Type: Sit to/from Stand Transfer: Assistance Level: To/From;Bed Side Chair;Minimal Assist Transfer: Assistive Device: Roller Walker Transfers: Type Of Assistance: Verbal Cues;To Maintain Precautions;For Strength Deficit;For Safety Considerations End Of Activity Status: Up in Chair;Nursing Notified;Instructed Patient to Reque st Assist with Mobility;Instructed Patient to Use Call Light Balance Sitting Balance: Static Sitting Balance;Dynamic Sitting Balance;2 UE Support;Sta ndby Assist Standing Balance: Static Standing Balance;Dynamic Standing Balance;2 UE support; Minimal Assist Gait Gait Distance: 240 feet Gait: Assistance Level: Minimal Assist;Safety Considerations Gait: Assistive Device: Roller Walker Gait: Descriptors: Pace: Slow;Forward trunk flexion;Step-To Gait;No balance loss ;Decreased step length Comments: patient needed 2 seated rest breaks Activity Limited By: Complaint of Fatigue;Patient Choice Assessment/Progress Impaired Mobility Due To: Pain;Post Surgical Changes;Post Surgical Precautions Assessment/Progress: Should Improve w/ Continued PT AM-PAC 6 Clicks Basic Mobility Inpatient Turning from your back to your side while in a flat bed without using bed rails: A Little Moving from lying on your back to sitting on the side of a flatbed without using bedrails : A Little Moving to and from a bed to a chair (including a wheelchair): A Lot Standing up from a chair using your arms (e.g. wheelchair, or bedside chair): A Lot To walk in hospital room: A Lot Climbing 3-5 steps with a railing: A Lot Raw Score: 14 Standardized (T-scale) Score: 35.55 Basic Mobility CMS 0-100%: 53.86 CMS G Code Modifier for Basic Mobility: CK Goals Goal Formulation: With Patient Time For Goal Achievement: 7 days Patient Will Go Supine To/From Sit: Independently, Ongoing Patient Will Transfer Bed/Chair: Independently Patient Will Transfer Sit to Stand: Independently, Ongoing Patient Will Ambulate: Greater than 200 Feet, w/ Walker, Independently, Ongoing Patient Will Go Up / Down Stairs: 3-5 Stairs, w/ Minimal Assist Plan Treatment Interventions: Mobility Training;Strengthening;Endurance Training Plan Frequency: 3-5 Days per Week PT Plan for Next Visit: Progress bed mobility, progress ambulation with RW PT Discharge Recommendations Recommendation: Inpatient setting Therapist: Sumi Bae PT, DPT Date: 12/23/2020 * Neymar Potter, SHOE STAINER-STRAIGHTENER HAND - 12/23/2020 8:13 AM CDT Images from the original note were not included. Heart Failure Progress Note Date of Service: 12/23/2020 Carli Koroma is a 75 y.o. y.o. female. 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 female who initially presented to outside hospital in [place], [place] on 12/06/20 reporting chief complaint of chest pain, shortness of b reath, nausea with diaphoresis. She was found to have elevated troponin with NST BONY; went to clinical laboratory technician for IABP placement. Her IABP was placed to SFA and develop ed a leak; therefore it was discontinued to prior to her transfer to [facility]. She was also found to have elevated BNP of 927 with HFrEF (30%) on echocardiogram. P ast medical history includes HTN, HLD, DM 2, CKD II, neuropathy. She is now s/p CABGx2(with COFFMAN to LAD and RSVG to OM ) by Dr Webster on 12/16/20. Recommendations/Plan: 1. Diuretics: Lasix 40 mg po daily (anticipate pt will d/c on this dose) 2. Increase Toprol XL to 25 mg qhs (plan to d/c on this dose) 3. Increase Losartan to 25 mg daily (plan to d/c on this dose) 4. Continue strict I&Os, daily standing scale weights 5. Pt will need LifeVest upon discharge. 6. Follow up: Appointment scheduled to establish care with Dr Eduardo Rod on at 1:30 in [place], [place] At Discharge: 1. Follow Up: appointment with a member of the HF team within 7 calendar days of discharge. 2. Cardiac Rehab upon follow up Pt seen and examined with Dr Isabel Potter APRN-STRAIGHTENER HAND Pager # [phone] Available on Voalte Assessment: Acute on chronic systolic HFrEF, EF: 30%. Cardiogenic shock (resolved) Major Complications or Comorbidities (LONGTERM): acute/ acute on chronic systolic and /or diastolic heart failure NYHA functional class III (marked limitation of physical activity - comfortable at rest, but less than ordinary activity causes symptoms of HF e.g., getting mariano ssed or standing from a sitting position), ACC Stage C (structural heart disease with prior or current symptoms of HF). She presents with signs of hypervolemia with left ventricular failure without s igns of low flow state. Admission BNP: 927 on 12/06 (OSH) Prior to admission diuretic regimen: None Strict I&O's: Net Total stay:+1259 mL Last 24 hrs Net: +100 mL Last 24 hrs UOP: 850 mL Vitals: 12/21/20 0508 12/22/20 0358 12/23/20 0700 Weight: 60.1 kg (132 lb 6.4 oz) 60.3 kg (133 lb) 59.1 kg (130 lb 6.4 oz) Goal Dry Weight: ~128 lbs Guideline Based Heart Failure Therapies: GDMT TUGBOAT OPERATOR Changes BB Atenolol 100 mg po daily Metoprolol 25 mg in AM, 12.5 mg in PM 12/11 Toprol XL 25 mg qhs 12/16 held post op 12/18: Metoprolol tartrate 12.5 mg bid 12/22: Switch to metoprolol succinate 12.5 mg bid ACEI/ARB/ARNI Previously on Irbesartan 12/21: Losartan 12.5 mg daily SGLT-2 Inhibitor N/A *consider initiating in outpt setting Aldosterone Antagonist N/A 12/11 Starting Spironolactone 12.5 mg daily 12/13 increase suleman to 25 mg daily 12/16 held post op 12/20: Start spironolactone 25 mg daily Hydralazine/Nitrate N/A Ivabradine N/A HRMT N/A *pt may benefit from BUS COMPANY MANAGER-D if EF does not improve with GDMT Anticoagulation for Afib/flutter N/A Cardiac Rehab Evaluation for LVEF <40% Will plan for upon discharge Diuretic Therapy Prior to admission dose N/A Given on admission 12/07 IV lasix 40 mg x1 Daily Dosing 12/08-12/15 Lasix 20 mg po daily 12/16 held post op 12/18-12/22: Lasix 20 mg IV twice daily 12/23: Lasix 40 mg po daily Cardiomyopathy, ischemic - likely secondary to ischemic etiology after recent [facility] - no TUGBOAT OPERATOR GDMT; will start with low dose Toprol XL and Spironolactone, consider l ow dose Losartan after surgery (see table above) -See echocardiogram results above 12/20 - pt will have continued up titration of GDMT and may require BUS COMPANY MANAGER-D in outpt set ting w/ LBBB on EKG > pt will need LifeVest at discharge NSTEMI, CAD - pt presented to OSH w/ NSTEMI; had IABP placed initially; transferred to [facility] for further management - 12/07 admit troponin >22.9>18.63>12.99>11.67>4/59>0.64 on 12/12 - CABG x 2 with COFFMAN to LAD and RSVG to OM on 12/16/[address] Jorge LÓPEZ - 12/08 lipid panel: Cholesterol 215, trigs 358, HDL 30, LDL 141 - no TUGBOAT OPERATOR statins; has failed atorvastatin and rosuvastatin 5 and 10 mg with repo rts of myalgia pain (resolved after stopping) consider trial of pravastatin 5-10 mg daily as lowest side effect profile and titrate up to highest tolerated dose - currently on rosuvastatin 10 mg Q 72 hours and zetia 10 mg daily > managed per primary team DM 2 - 12/07/20 HgbA1c 5.9 - TUGBOAT OPERATOR Janumet XR on hold during admission - Sliding scale Insulin while admitted - pt w/ mod amt neuropathy; takes gabapentin 300 mg 5x/day at home - currently receiving gabapentin 300 mg at noon, 600 mg at 1700, 600 mg qhs > managed per primary team > Plan to initiate SGLT2 inhibitor as outpatient CKD II - admit creatinine 0.71-->0.69>>>>0.72>0.67>0.69 today (12/23) > daily labs per primary team Post-op Course of Events 12/16 IABP inserted post operatively, removed 12/17 Subjective: Today she is resting w/o c/o, daughter in room at bedside. She states she is "re bennie to get home". Denies feeling short of breath, no chest pain/pressures, no pa lpitations, no dizziness/lightheadedness, no lower extremity edema or abdominal distention. She continues to report having neuropathic pain to her lower extremi ties. Overall she is doing well; states she can lie flat w/o problems. Objective: Vital Signs: Last Filed Vital Signs: 24 Hour Range BP: 140/66 (12/23 749) Temp: 37.1 C (98.7 F) (12/23 749) Pulse: 89 (12/23 749) Respirations: 18 PER MINUTE (12/23 749) SpO2: 97 % (12/23 749) BP: (108-140)/(56-71) Temp: [36.6 C (97.8 F)-37.1 C (98.7 F)] Pulse: [84-92] Respirations: [18 PER MINUTE-20 PER MINUTE] SpO2: [96 %-98 %] Intensity Pain Scale (Self Report): 0 (12/22/20 0921) Physical Exam: General Appearance: thin, no distress, sitting in chair beside bed Skin: warm and dry, pale Digits and Nails: no cyanosis or clubbing Neck Veins: JVP ~6-7cm, HJR negative Chest Inspection: sternal incision w/ drsg c/d/i Respiratory Effort: breathing comfortably, no respiratory distress Auscultation: lungs clear to auscultation, no rales or rhonchi, no wheezing Cardiac Rhythm: regular rhythm and normal rate Cardiac Auscultation: S1, S2 present Murmurs: no murmur Pedal Pulses: normal symmetric pedal pulses Lower Extremity Edema: no lower extremity edema Peripheral Circulation: distal upper and lower extremities warm and well-perfuse d Abdominal Exam: soft, non-tender, no masses, bowel sounds present Orientation: alert and answering questions appropriately Neurologic Exam: moving all 4 extremities Laboratory Review: CBC w/Diff Lab Results Component Value Date/Time WBC 8.2 12/23/2020 04:49 AM RBC 3.21 (L) 12/23/2020 04:49 AM HGB 10.1 (L) 12/23/2020 04:49 AM HCT 29.8 (L) 12/23/2020 04:49 AM MCV 92.8 12/23/2020 04:49 AM MCH 31.4 12/23/2020 04:49 AM MCHC 33.9 12/23/2020 04:49 AM RDW 15.0 12/23/2020 04:49 AM PLTCT 347 12/23/2020 04:49 AM MPV 7.3 12/23/2020 04:49 AM Lab Results Component Value Date/Time NEUT 55 12/16/2020 05:33 AM ANC 4.50 12/16/2020 05:33 AM LYMA 30 12/16/2020 05:33 AM ALC 2.40 12/16/2020 05:33 AM IMAN 11 12/16/2020 05:33 AM AMC 0.90 (H) 12/16/2020 05:33 AM EOSA 3 12/16/2020 05:33 AM AEC 0.30 12/16/2020 05:33 AM BASA 1 12/16/2020 05:33 AM ABC 0.00 12/16/2020 05:33 AM Chemistry Lab Results Component Value Date/Time NA 139 12/23/2020 04:49 AM K 4.2 12/23/2020 04:49 AM CL 103 12/23/2020 04:49 AM CO2 29 12/23/2020 04:49 AM GAP 7 12/23/2020 04:49 AM BUN 15 12/23/2020 04:49 AM CR 0.69 12/23/2020 04:49 AM GLU 133 (H) 12/23/2020 04:49 AM Lab Results Component Value Date/Time CA 8.7 12/23/2020 04:49 AM ALBUMIN 3.8 12/16/2020 05:33 AM TOTPROT 6.8 12/16/2020 05:33 AM ALKPHOS 62 12/16/2020 05:33 AM AST 21 12/16/2020 05:33 AM ALT 14 12/16/2020 05:33 AM TOTBILI 0.8 12/16/2020 05:33 AM GFR >60 12/23/2020 04:49 AM GFRAA >60 12/23/2020 04:49 AM 12/23 Chest X-Ray: 1. Persistent mild cardiomegaly with mild vascular congestion, resolving edema and small bilateral pleural effusions. 2. Low lung volumes with patchy bibasilar opacities, likely atelectasis. Tele/ECG: SR, LBBB, HR 90s Echocardiogram Details: Echo Results (Last 3 results in the past 3 years) Echo EF LVIDD LA Size IVS LVPW Rest PAP (12/20/20) 25 (12/13/20) 6.11 (12/13/20) 3.83 (12/13/20) 0.92 (12/13/20) 0.99 (12/10/20) 34 (12/13/20) 30 (12/10/20) 5.50 (12/10/20) 3.70 (12/10/20) 1.10 (12/10/20) 0.80 (12/10/20) 30 12/20/20 Echo: Severely dilated left ventricle with severely reduced systolic function. The ca lculated ejection fraction is 25%. There are segmental wall motion abnormaliti es, as coded in the diagram below. The right ventricular size is normal with mildly reduced systolic function. Normal biatrial size No major valvular abnormalities on limited views of interrogation. No pericardial effusion There were no major changes compared with prior study on 12/13/2020. TRISTEN Kolb * Montserrat Rincon RN - 12/23/2020 8:00 AM CDT 12/23/20 0800 Cardiac Rehab Activity Comments PT to see pt this AM. Will check a little later. * Ayleen White MD - 12/23/2020 7:25 AM CDT Daily Progress Note Today's Date: 12/23/2020 Name: Carli Koroma Admission Date: 12/07/2020 (LOS: 16 days) Assessment: Carli Koroma is a 75 y.o. female with recent CABG (12/17/2011) w/ IA BP removal 12/17 c/b popliteal thrombus who is now 6 Days Post-Op from a poplitea l thrombectomy (12/17/2020) with Dr. Salinas. 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 ([facility]) NSTEMI, initial episode of care ([facility]) Essential hypertension Hyperlipidemia NYHA class 2 acute on chronic systolic heart failure ([facility]) Ischemic cardiomyopathy Type 2 diabetes mellitus ([facility]) Acute blood loss anemia Plan: - good pedal pulses in bilateral lower extremities - recovering appropriately from surgery - will arrange f/u appointment with vascular surgery - please page [phone] with any questions Subjective: No acute events overnight. Pain is controlled. Sitting comfortably in bed. Ready to go home today or tomorrow. Objective: BP: (108-136)/(56-71) Temp: [36.6 C (97.8 F)-36.8 C (98.3 F)] Pulse: [84-93] Respirations: [16 PER MINUTE-20 PER MINUTE] SpO2: [96 %-98 %] Body mass index is 23.85 kg/m. BMI Category: Acceptable (19 to <25) Lab Results Component Value Date/Time HGB 10.1 (L) 12/23/2020 04:49 AM HCT 29.8 (L) 12/23/2020 04:49 AM WBC 8.2 12/23/2020 04:49 AM PLTCT 347 12/23/2020 04:49 AM INR 1.2 12/16/2020 12:30 PM Lab Results Component Value Date/Time NA 139 12/23/2020 04:49 AM K 4.2 12/23/2020 04:49 AM CL 103 12/23/2020 04:49 AM CO2 29 12/23/2020 04:49 AM BUN 15 12/23/2020 04:49 AM CR 0.69 12/23/2020 04:49 AM MG 1.9 12/23/2020 04:49 AM CA 8.7 12/23/2020 04:49 AM Lab Results Component Value Date/Time GLUPOC 139 (H) 12/22/2020 09:49 PM GLUPOC 146 (H) 12/22/2020 05:26 PM GLUPOC 140 (H) 12/22/2020 11:40 AM Physical Exam Constitutional: She is oriented to person, place, and time. She appears well-dev eloped and well-nourished. No distress. HENT: Head: Normocephalic and atraumatic. Cardiovascular: Normal rate and intact distal pulses. Pulses: Radial pulses are 2+ on the right side and 2+ on the left side. Dorsalis pedis pulses are 2+ on the right side and 2+ on the left side. Posterior tibial pulses are 2+ on the right side and 2+ on the left side. Pulmonary/Chest: Effort normal. No respiratory distress. Abdominal: Soft. She exhibits no distension. There is no abdominal tenderness. Musculoskeletal: General: Normal range of motion. Comments: R groin ecchymosis, improving Medial right lower extremity incision immediately distal to the knee well approx imated with no drainage or erythema, covered with steri-strips Neurological: She is alert and oriented to person, place, and time. Skin: Skin is warm and dry. Psychiatric: She has a normal mood and affect. Her behavior is normal. Judgment and thought content normal. Malnutrition Details: Active Wounds Wounds 12/16/20828 Surgical Incision Mid Sternum (Active) 12/16/20828 Sternum Wound Type: Surgical Incision Pressure Injury Stages: Pressure Injury Present On Inpatient Admission: Wound/Pressure Injury Orientation: Mid Wound Description (Comments): Wound Type:: Agree With My Assessment? Yes 12/23/20314 Wound Dressing Status Intact 12/22/202008 Wound Dressing and / or Treatment Silverlon 12/22/20 2009 Wound Drainage Amount None 12/22/202008 Wound Base Assessment Dressing intact, base not assessed 12/22/202008 Surrounding Skin Assessment Intact 12/22/202008 Wound Site Closure Wound Adhesive Bandage 12/22/202008 Number of days: 7 Wounds 12/16/20 0829 Surgical Incision (Active) 12/16/20 0829 Wound Type: Surgical Incision Pressure Injury Stages: Pressure Injury Present On Inpatient Admission: Wound/Pressure Injury Orientation: Wound Description (Comments): Wound Type:: Agree With My Assessment? Yes 12/23/20 031 Wound Dressing Status Open to air 12/22/202008 Wound Dressing and / or Treatment Silverlon 12/21/20 1250 Wound Securement / Protective Device Rina wrap 12/21/20 1250 Wound Drainage Amount None 12/22/202008 Wound Base Assessment Clean;Dry 12/22/202008 Surrounding Skin Assessment Dry;Intact 12/22/202008 Wound Site Closure Sutures 12/22/202008 Number of days: 7 Wounds 12/16/20 0848 Surgical Incision Inner;Upper;Left Leg (Active) 12/16/20 0848 Leg Wound Type: Surgical Incision Pressure Injury Stages: Pressure Injury Present On Inpatient Admission: Wound/Pressure Injury Orientation: Inner;Upper;Left Wound Description (Comments): Wound Type:: Agree With My Assessment? Yes 12/23/20314 Wound Dressing Status Open to air 12/22/202008 Wound Securement / Protective Device Rina wrap 12/21/20 1250 Wound Drainage Amount None 12/22/202008 Wound Base Assessment Clean;Dry;Intact 12/22/202008 Surrounding Skin Assessment Dry;Intact 12/22/202008 Wound Site Closure Open to Air 12/22/202008 Number of days: 7 Wounds 12/17/20 1333 Surgical Incision Right;Medial (Active) 12/17/20 1333 Wound Type: Surgical Incision Pressure Injury Stages: Pressure Injury Present On Inpatient Admission: Wound/Pressure Injury Orientation: Right;Medial Wound Description (Comments): Wound Type:: Agree With My Assessment? Yes 12/23/20314 Wound Dressing Status Open to air 12/22/202008 Wound Dressing and / or Treatment [place] 12/21/20 1250 Wound Drainage Amount None 12/22/202008 Wound Base Assessment Clean;Dry;Intact 12/22/202008 Surrounding Skin Assessment Dry;Intact 12/22/202008 Wound Site Closure Open to Air 12/22/202008 Number of days: 6 Wounds 12/19/201927 Pressure Injury Mid Sacrum (Active) 12/19/201927 Sacrum Wound Type: Pressure Injury Pressure Injury Stages: Stage 1 Pressure Injury Present On Inpatient Admission: Wound/Pressure Injury Orientation: Mid Wound Description (Comments): Wound Type:: Agree With My Assessment? Yes 12/23/205 Wound Dressing Status Intact 12/22/202008 Wound Drainage Amount None 12/22/202008 Wound Base Assessment [place];Non-blanchable 12/22/202008 Surrounding Skin Assessment Dry;Intact 12/22/202008 Wound Site Closure Wound Adhesive Bandage 12/22/202008 Number of days: 4 Ayleen White MD Service Pager: # [phone] * Tina Patiño PA-C - 12/23/2020 7:05 AM CDT Cardiothoracic Surgery Progress Note Carli Koroma Today's Date: 12/23/2020 Admission Date: 12/07/2020 LOS: 16 days 12/16/2020 Procedures: 1. CABG x 2 with COFFMAN to LAD and SV to OM1 (CPT 84556, 86129) 2. Endoscopic Vein [place] (CPT 15359) 3. Right femoral arterial intraaortic balloon pump placement 4. Transesophageal echocardiography 12/17/2020 Procedures: Thrombus involving the popliteal and anterior tibial arteries. Thrombectomy perf ormed with 3Fr Kasia balloon with return of distal pulses. 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 Mild delirium in CTI. cont chalo onin. No seroquel for now d/t prolonged QTc. Holding narcotics. Continue schedul ed APAP with PRN low dose tramadol. Cont Gabapentin 300 mg Q8H. 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 CV SR with BBB rate 80's. SBP 110s-120s. IABP pulled 12/17. Epi weaned off , Milrinone off 12/20. Cont Toprol XL 12.5mg BID, losartan 12.5 q day, bASA, ze tia, crestor q 72 hrs. Intra op AIDAN LVEF 20%; post-op LVEF 25-30%. Repeat TTE : The calculated ejection fraction is 25%. Order placed for LifeVest on . HF following. Vascular: s/p R popliteal thrombectomy for acute thrombus following IABP removal 12/17. Pedal pulses restored and pulses now easily palpable. No need for AC per vascular surgery. Appreciate vascular surgery assistance. Resp on RA. 2view cxr, small bilateral effusions, improved atelectasis/pulm edema. Cont IS, aggressive pulm toilet. Renal Baseline sCr. 0.83. Scr today 0.69. Continue lasix 40 PO QD for volum e overload. UOP 850mL/24hrs, net +100mL/24hrs, net +1.2L/since admit. Weight jo ann n 2.5kg from admit. GI - ADAT, continue post op bowel regimen. LBM 12/21. ID Afebrile. Wbc 8.2. Heme Hgb 10.1 stable. Continue foot pumps for DVT prophylaxis, SQ Heparin. FEN replace Mg and K to minimize the risk of cardiac arrhythmias. Hgb A1C 5. 9%, on sitagliptin/metformin TUGBOAT OPERATOR, restarted sitafliptin and reduce to SSI to lo w dose. Activity ambulated 260ft yesterday. OT/PT consulted. Rehab consulted Disposition: LifeVest ordered, appreciate HF recs. Discharge to [facility] when bed av ailable and Life Vest delivered. Prophylaxis Review: Lines: No Antibiotic Usage: No VTE: Pharmacological prophylaxis; SQ Heparin and Mechanical prophylaxis; Foot p ump Urinary Catheter: No Tina Patiño PA-C Voalte/pager [phone] 12/23/2020 Subjective: HPI: Carli Koroma is a 75 y.o. female who initially presented to outside hospit al in [place], [place] on 12/06/20 reporting chief complaint of chest pain, shortness of breath, nausea with diaphoresis. She was found to have elevated troponin with NSTEMI; went to clinical laboratory technician for IABP placement. Her IABP was placed to SFA and de veloped a leak; therefore it was discontinued to prior to her transfer to [facility]. She was also found to have elevated BNP of927 with HFrEF (30%) on echocardiog erika. Past medical history includes HTN, HLD, DM 2, CKD II, neuropathy.She is n ow s/p CABG x [address] Webster on 12/16/20. 12/17: R IABP removal. Acute popliteal thrombus s/p thrombectomy with vascular burns rgery. Epi 0.06, milrinone 0.25. Work towards extubation. 12/18: epi @ 0.03 mcg/kg/min (slow wean to off), lasix 20 mg IV BID, d/c mediasti nal CTs, MDCF. Epi off. 12/19: Milrinone 0.125mcg/kg/min, pull CTs, cont scheduled diuretics, re-engage H eart Failure 12/20: milrinone weaned off Objective: Medications: Scheduled Meds:allopurinoL (ZYLOPRIM) tablet 100 mg, 100 mg, Oral, QDAY aspirin chewable tablet 81 mg, 81 mg, Oral, QDAY ezetimibe (ZETIA) tablet 10 mg, 10 mg, Oral, QHS furosemide (LASIX) injection 20 mg, 20 mg, Intravenous, BID(-) gabapentin (NEURONTIN) capsule 300 mg, 300 mg, Oral, Q8H heparin (porcine) PF syringe 5,000 Units, 5,000 Units, Subcutaneous, Q8H insulin aspart (U-100) (NOVOLOG FLEXPEN U-100 INSULIN) injection PEN 0-6 Units, 0-6 Units, Subcutaneous, ACHS (22) lidocaine (LIDODERM) 5 % topical patch 1 patch, 1 patch, Topical, QDAY losartan (COZAAR) tablet 12.5 mg, 12.5 mg, Oral, QDAY melatonin tablet 3 mg, 3 mg, Oral, QHS metoprolol XL (TOPROL XL) tablet 12.5 mg, 12.5 mg, Oral, BID polyethylene glycol 3350 (MIRALAX) packet 17 g, 1 packet, Oral, BID rosuvastatin (CRESTOR) tablet 10 mg, 10 mg, Oral, Q72H* senna/docusate (SENOKOT-S) tablet 2 tablet, 2 tablet, Oral, BID SITagliptin (JANUVIA) tablet 100 mg, 100 mg, Oral, QDAY spironolactone (ALDACTONE) tablet 25 mg, 25 mg, Oral, QDAY Continuous Infusions: PRN and Respiratory Meds:acetaminophen Q6H PRN OR acetaminophen Q6H PRN, alu m/mag hydroxide/simeth Q4H PRN, bisacodyL QDAY PRN, hydrALAZINE Q6H PRN, lidocai ne PF PRN, magnesium sulfate PRN OR magnesium oxide PRN, meclizine TID PRN, milk of magnesia (CONC) QDAY PRN, nalOXone PRN, ondansetron Q6H PRN OR ondan setron (ZOFRAN) IV Q6H PRN, potassium chloride SR PRN OR potassium chloride PRN OR potassium chloride in water PRN, traMADoL Q6H PRN Vital Signs: Last Filed Vital Signs: 24 Hour Ra nge BP: 108/71 (12/23 313) Temp: 36.6 C (97.9 F) (12/23 313) Pulse: 84 (12/23 313) Respirations: 18 PER MINUTE (12/23 313) SpO2: 97 % (12/23 313) BP: (108-136)/(56-71) Temp: [36.6 C (97.8 F)-36.8 C (98.3 F)] Pulse: [84-93] Respirations: [16 PER MINUTE-20 PER MINUTE] SpO2: [96 %-98 %] Intensity Pain Scale (Self Report): 0 (12/22/20 0921) Vitals: 12/21/20 0508 12/22/20 0358 12/23/20 0700 Weight: 60.1 kg (132 lb 6.4 oz) 60.3 kg (133 lb) 59.1 kg (130 lb 6.4 oz) Intake/Output Summary: (Last 24 hours) Intake/Output Summary (Last 24 hours) at 12/23/2020 0705 Last data filed at 12/22/2020 2200 Gross per 24 hour Intake 950 ml Output 850 ml Net 100 ml Physical Exam: Neuro: A&Ox4 Cardiovascular: RRR no rub or murmur Respiratory: diminished bases GI: soft, NT, active BS Extremities: trace BLE edema, peripheral pulses palpable, R groin bruising - no hematoma, R thigh bruising (old) Incisions: Sternal incision dressing, dry and intact. No crepitus or sternal ins tability. Pertinent Meds: Taking Reason for Not Taking 1. Aspirin yes 2. B-Doug yes 3. Statin yes 4. RINA/ARB yes LABS: Recent Labs 12/21/20 04412/22/20 04512/23/20 0449 NA 140 142 139 K 4.3 4.2 4.2 CL 105 105 103 CO2 24 26 29 GAP 11 11 7 BUN 32* 23 15 CR 0.72 0.67 0.69 GLU 138* 145* 133* CA 8.8 9.0 8.7 MG 2.3 2.1 1.9 Recent Labs 12/21/20 0440 12/22/20 0457 12/23/20 0449 WBC 9.8 9.9 8.2 HGB 9.1* 10.6* 10.1* HCT 26.9* 30.7* 29.8* PLTCT 296 369 347 Estimated Creatinine Clearance: 65.8 mL/min (based on SCr of 0.69 mg/dL). Vitals: 12/21/20 0508 12/22/20 0358 12/23/20 0700 Weight: 60.1 kg (132 lb 6.4 oz) 60.3 kg (133 lb) 59.1 kg (130 lb 6.4 oz) No results for input(s): PHART, PO2ART in the last 72 hours. Invalid input(s): PC02A Radiology and Other Diagnostic Procedures Review: Reviewed * Jeannine Madsen RN - 12/23/2020 5:19 AM CDT Pt AOx4. SR/ST c BBB on tele. Tolerating RA. Pt reported no pain. No N/V reported. Adequate UOP. -BM. Surgical incisions CDI. Fall bundle in place. Call light within reach. Pt has no complaints at this time . * Kristen Singh RN - 12/22/2020 6:06 PM CDT Pt remains alert and oriented. SR with BBB on tele. Pt on room air. No changes to surgical incisions. + bowel sounds. No BM today. Pt voiding, however voiding in toilet. Several urine occurrences today. Pt denies pain. Pt able to ambulate TID in halls and up in chair all of day. Pt also shifting ow n weight in chair. * Cheryl Kimbrough - 12/22/2020 3:15 PM CDT 12/22/20 1202 Cardiac Rehab Activity Distance Walked (feet) 360 ft BP Pre-activity 119/52 BP Post-activity 137/66 HR Pre-activity 83 bpm HR Post-activity 87 SaO2 Pre-activity 98 % SaO2 Post-activity 98 O2 Device None (Room Air) Comments Patient walked 180 ft in hallway today and return to room, tolerated we ll. (One seated rest break taken. ) Mobility Progressive Mobility Level 8 Level of Assistance Assist X1 Assistive Device Walker Time Tolerated 0-10 minutes Activity Limited By Fatigue * Abhijit Dooley PTA - 12/22/2020 3:04 PM CDT PHYSICAL THERAPY PROGRESS NOTE Name: Carli Koroma : 1945 Age: [age] y.o. Admission Date: 12/07/2020 LOS: 15 days Mobility Patient Turn/Position: Chair Progressive Mobility Level: Walk in hallway Distance Walked (feet): 150 ft(with seated rest break) Level of Assistance: Assist X1 Assistive Device: Walker Time Tolerated: 11-30 minutes Activity Limited By: Fatigue Subjective Significant hospital events: 75yo female who presented to OSH for shortness of air. She underwent cardiac catheterization for NSTEMI and was found to have kiana re multivessel CAD. An IABP was placed, significant leak from her IABP and she w as transferred to without IABP. s/p 2v CABG 12/16. 7-extubated; IABP remov al; Acute loss in RLL pulses following IABP removal, s/p thrombectomy via poplit eal exposure by vascular. Mental / Cognitive Status: Alert;Oriented;Cooperative;Follows Commands Persons Present: Family Pain: Patient has no complaint of pain Pain Interventions: Patient agrees to participate in therapy with modifications to session Comments: Room air. Precautions: Sternal Precautions Ambulation Assist: Independent Mobility in Community without Device Patient Owned Equipment: Single Point Cane Home Situation: Lives with Family Type of Home: House Entry Stairs: 3-5 Stairs In-Home Stairs: No Stairs Bed Mobility/Transfer Comments: Patient sitting up in bedside chair upon arrival and end of session. Transfer Type: Sit to/from Stand Transfer: Assistance Level: To/From;Bed Side Chair;Minimal Assist Transfer: Assistive Device: Roller Walker Transfers: Type Of Assistance: Verbal Cues;To Maintain Precautions;For Strength Deficit;For Safety Considerations End Of Activity Status: Up in Chair;Nursing Notified;Instructed Patient to Reque st Assist with Mobility;Instructed Patient to Use Call Light Balance Sitting Balance: Static Sitting Balance;Dynamic Sitting Balance;2 UE Support;Sta ndby Assist Standing Balance: Static Standing Balance;Dynamic Standing Balance;2 UE support; Minimal Assist Gait Gait Distance: 150 feet Gait: Assistance Level: Minimal Assist;Safety Considerations Gait: Assistive Device: Roller Walker Gait: Descriptors: Pace: Slow;Forward trunk flexion;Step-To Gait;No balance loss ;Decreased step length Activity Limited By: Complaint of Fatigue;Patient Choice Comments: Pt declines further ambulation at this time due to fatigue. Pt has amb ulated twice with cardiac rehab, including recently. Assessment/Progress Impaired Mobility Due To: Pain;Post Surgical Changes;Post Surgical Precautions Assessment/Progress: Should Improve w/ Continued PT AM-PAC 6 Clicks Basic Mobility Inpatient Turning from your back to your side while in a flat bed without using bed rails: A Little Moving from lying on your back to sitting on the side of a flatbed without using bedrails : A Little Moving to and from a bed to a chair (including a wheelchair): A Lot Standing up from a chair using your arms (e.g. wheelchair, or bedside chair): A Lot To walk in hospital room: A Lot Climbing 3-5 steps with a railing: Total Raw Score: 13 Standardized (T-scale) Score: 33.99 Basic Mobility CMS 0-100%: 57.65 CMS G Code Modifier for Basic Mobility: CK Goals Goal Formulation: With Patient Time For Goal Achievement: 5 days, To, 7 days Patient Will Go Supine To/From Sit: Independently, Ongoing Patient Will Transfer Bed/Chair: New Goal, w/ Stand By Assist Patient Will Transfer Sit to Stand: Independently, Ongoing Patient Will Ambulate: Greater than 200 Feet, w/ Walker, Independently, Ongoing Patient Will Go Up / Down Stairs: New Goal, 3-5 Stairs, w/ Minimal Assist Plan Treatment Interventions: Mobility Training;Strengthening;Endurance Training Plan Frequency: 5 Days per Week PT Plan for Next Visit: Progress bed mobility, progress ambulation with RW PT Discharge Recommendations Recommendation: Inpatient setting;Recommend rehab medicine consult Therapist: Abhijit Dooley PTA Date: 12/22/2020 * Anamika Ladd, RT - 12/22/2020 12:58 PM CDT RT Adult Assessment Note NAME:Carli Koroma :1945 AGE: 75 y.o. ADMISSION DATE: 12/07/2020 DAYS ADMITTED: LOS: 15 days RT Treatment Plan: Protocol Plan: Procedures PEP Therapy: Place a nursing order for "IS Q1h While Awake" for any of Lung Expa nsion indicators PAP: Discontinued Additional Comments: Impressions of the patient: Pt eating meal, daughter at bedside, on RA Intervention(s)/outcome(s): RT evaluation Patient education that was completed: N/A Recommendations to the care team: See above Vital Signs: Pulse: 85 RR: 20 PER MINUTE SpO2: 96 % O2 Device: Liter Flow: O2%: (RA) Breath Sounds: Clear (Implies normal) Respiratory Effort: Non-Labored * Cheryl Kimbrough - 12/22/2020 11:25 AM CDT 12/22/20 0838 Cardiac Rehab Activity Distance Walked (feet) 260 ft BP Pre-activity 129/74 BP Post-activity 124/62 HR Pre-activity 93 bpm HR Post-activity 103 SaO2 Pre-activity 96 % SaO2 Post-activity 96 O2 Device None (Room Air) Comments Patient walked 260 ft in hallway with 2 seated rest breaks. Patient ass isted back to room and into chair at completion. Next walk goal: 300 ft. Mobility Progressive Mobility Level 8 Level of Assistance Assist X1 Assistive Device Walker Time Tolerated 11-30 minutes Activity Limited By Fatigue * Kristen Singh RN - 12/22/2020 11:21 AM CDT Pt alert and oriented this morning. SR with BBB on tele. V wires capped. Pt on room air. RN reviewed use of IS with pt. Pt with midsternal with silverlon. CTE with sutures. + bowel sounds. BM today 12/22. Pt voiding, with few urine occurrences today. Right groin puncture site COST SPECIALIST, soft, bruising noted. Leg incision CDI, SUZI. Pulses present in all extremities. Pt does report neuropathy in BLE. Pt denies pain currently. Able to walk with cardiac rehab, pt up in chair. Will monitor. * Brittany Hernandez PA-C - 12/22/2020 8:25 AM CDT Cardiothoracic Surgery Progress Note Carli Ga Today's Date: 12/22/2020 Admission Date: 12/07/2020 LOS: 15 days 12/16/2020 Procedures: 1. CABG x 2 with COFFMAN to LAD and SV to OM1 (CPT 68786, 19478) 2. Endoscopic Vein [place] (CPT 96023) 3. Right femoral arterial intraaortic balloon pump placement 4. Transesophageal echocardiography 12/17/2020 Procedures: Thrombus involving the popliteal and anterior tibial arteries. Thrombectomy perf ormed with 3Fr Kasia balloon with return of distal pulses. 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 Mild delirium in CTI. cont chalo onin. No seroquel for now d/t prolonged QTc. Holding narcotics. Continue schedul ed APAP with PRN low dose tramadol. Cont Gabapentin 300 mg Q8H. 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 CV SR with BBB rate 90's. SBP 110s-120s. IABP pulled 12/17. Epi weaned off , Milrinone off 12/20. Cont metoprolol 12.5mg BID, losartan 12.5 q day, bASA, z etia, crestor q 72 hrs. Intra op AIDAN LVEF 20%; post-op LVEF 25-30%. Repeat TTE : The calculated ejection fraction is 25%. Order placed for LifeVest on 12/21. Vascular: s/p R popliteal thrombectomy for acute thrombus following IABP removal 12/17. Pedal pulses restored and pulses now easily palpable. No need for AC per vascular surgery. Appreciate vascular surgery assistance. Resp on RA. 2view cxr, small bilateral effusions, improved atelectasis/pulm edema. Cont IS, aggressive pulm toilet. Renal Baseline sCr. 0.83. Scr today 0.67. lasix 20 mg IV BID. UOP 1170mL/24 hrs, net +117mL/24hrs, net +1.4L/since admit. Weight down 2.5kg from admit. GI - ADAT, continue post op bowel regimen. LBM 12/21. ID Afebrile. Wbc 9.9. Heme Hgb 10.6 stable. Continue foot pumps for DVT prophylaxis, SQ Heparin. FEN replace Mg and K to minimize the risk of cardiac arrhythmias. Hgb A1C 5. 9%, on sitagliptin/metformin TUGBOAT OPERATOR, restarted sitafliptin and reduce to SSI to lo w dose. BG 162-203. Activity ambulated 180ft yesterday. OT/PT consulted. Rehab consulted Disposition: LifeVest ordered (not delivered), appreciate HF recs, increase act ivity, IPR consulted, home v IPR MON/ Prophylaxis Review: Lines: No Antibiotic Usage: No VTE: Pharmacological prophylaxis; SQ Heparin and Mechanical prophylaxis; Foot p ump Urinary Catheter: No KELLEN Spangler/pager [phone] 12/22/2020 Subjective: HPI: Carli Koroma is a 75 y.o. female who initially presented to outside hospit al in [place], [place] on 12/06/20 reporting chief complaint of chest pain, shortness of breath, nausea with diaphoresis. She was found to have elevated troponin with NSTEMI; went to clinical laboratory technician for IABP placement. Her IABP was placed to [facility] and de veloped a leak; therefore it was discontinued to prior to her transfer to [facility]. She was also found to have elevated BNP of927 with HFrEF (30%) on echocardiog erika. Past medical history includes HTN, HLD, DM 2, CKD II, neuropathy.She is n ow s/p CABG x [address] Webster on 12/16/20. 12/17: R IABP removal. Acute popliteal thrombus s/p thrombectomy with vascular burns rgery. Epi 0.06, milrinone 0.25. Work towards extubation. 12/18: epi @ 0.03 mcg/kg/min (slow wean to off), lasix 20 mg IV BID, d/c mediasti nal CTs, MDCF. Epi off. 12/19: Milrinone 0.125mcg/kg/min, pull CTs, cont scheduled diuretics, re-engage H eart Failure 12/20: milrinone weaned off Objective: Medications: Scheduled Meds:allopurinoL (ZYLOPRIM) tablet 100 mg, 100 mg, Oral, QDAY aspirin chewable tablet 81 mg, 81 mg, Oral, QDAY ezetimibe (ZETIA) tablet 10 mg, 10 mg, Oral, QHS furosemide (LASIX) injection 20 mg, 20 mg, Intravenous, BID(9-17) gabapentin (NEURONTIN) capsule 300 mg, 300 mg, Oral, Q8H heparin (porcine) PF syringe 5,000 Units, 5,000 Units, Subcutaneous, Q8H insulin aspart (U-100) (NOVOLOG FLEXPEN U-100 INSULIN) injection PEN 0-6 Units, 0-6 Units, Subcutaneous, ACHS (22) lidocaine (LIDODERM) 5 % topical patch 1 patch, 1 patch, Topical, QDAY losartan (COZAAR) tablet 12.5 mg, 12.5 mg, Oral, QDAY melatonin tablet 3 mg, 3 mg, Oral, QHS metoprolol XL (TOPROL XL) tablet 12.5 mg, 12.5 mg, Oral, BID polyethylene glycol 3350 (MIRALAX) packet 17 g, 1 packet, Oral, BID rosuvastatin (CRESTOR) tablet 10 mg, 10 mg, Oral, Q72H* senna/docusate (SENOKOT-S) tablet 2 tablet, 2 tablet, Oral, BID SITagliptin (JANUVIA) tablet 100 mg, 100 mg, Oral, QDAY spironolactone (ALDACTONE) tablet 25 mg, 25 mg, Oral, QDAY Continuous Infusions: PRN and Respiratory Meds:acetaminophen Q6H PRN OR acetaminophen Q6H PRN, alu m/mag hydroxide/simeth Q4H PRN, bisacodyL QDAY PRN, hydrALAZINE Q6H PRN, lidocai ne PF PRN, magnesium sulfate PRN OR magnesium oxide PRN, meclizine TID PRN, milk of magnesia (CONC) QDAY PRN, nalOXone PRN, ondansetron Q6H PRN OR ondan setron (ZOFRAN) IV Q6H PRN, potassium chloride SR PRN OR potassium chloride PRN OR potassium chloride in water PRN, traMADoL Q6H PRN Vital Signs: Last Filed Vital Signs: 24 Hour Ra nge BP: 129/62 (12/23 799) Temp: 36.7 C (98 F) (12/23 799) Pulse: 90 (12/22 942) Respirations: 18 PER MINUTE (12/22 942) SpO2: 97 % (12/22 942) BP: (117-129)/(49-67) Temp: [36.3 C (97.4 F)-36.7 C (98.1 F)] Pulse: [82-98] Respirations: [16 PER MINUTE-20 PER MINUTE] SpO2: [95 %-100 %] Intensity Pain Scale (Self Report): 0 (12/21/20 1510) Vitals: 12/20/20 1104 12/21/20 0508 12/22/20 0358 Weight: 61.2 kg (135 lb) 60.1 kg (132 lb 6.4 oz) 60.3 kg (133 lb) Intake/Output Summary: (Last 24 hours) Intake/Output Summary (Last 24 hours) at 12/22/2020 1054 Last data filed at 12/22/2020 0358 Gross per 24 hour Intake 600 ml Output 750 ml Net -150 ml Physical Exam: Neuro: A&Ox4 Cardiovascular: RRR no rub or murmur Respiratory: diminished bases GI: soft, NT, active BS Extremities: trace BLE edema, peripheral pulses palpable, R groin bruising - no hematoma, R thigh bruising (old) Incisions: Sternal incision dressing, dry and intact. No crepitus or sternal ins tability. Pertinent Meds: Taking Reason for Not Taking 1. Aspirin yes 2. B-Doug yes 3. Statin yes 4. RINA/ARB yes LABS: Recent Labs 12/20/20 0505 12/21/20 0440 12/22/20 0457 NA 141 140 142 K 4.1 4.3 4.2 CL 107 105 105 CO2 24 24 26 GAP 10 11 11 BUN 44* 32* 23 CR 0.95 0.72 0.67 GLU 142* 138* 145* CA 8.8 8.8 9.0 MG 2.6 2.3 2.1 Recent Labs 12/20/20 0505 12/21/20 0440 12/22/20 0457 WBC 11.8* 9.8 9.9 HGB 8.6* 9.1* 10.6* HCT 25.5* 26.9* 30.7* PLTCT 239 296 369 Estimated Creatinine Clearance: 60.3 mL/min (based on SCr of 0.67 mg/dL). Vitals: 12/20/20 1104 12/21/20 0508 12/22/20 0358 Weight: 61.2 kg (135 lb) 60.1 kg (132 lb 6.4 oz) 60.3 kg (133 lb) No results for input(s): PHART, PO2ART in the last 72 hours. Invalid input(s): PC02A Radiology and Other Diagnostic Procedures Review: Reviewed Associated attestation - Leo Andrea MD - 12/24/2020 7:17 AM CDT Mrs Koroma continues to do well following her high risk bypass surgery complica aleksandar by a peripheral embolus with embolectomy to her right lower extremity. She is clinically well, and there are no surgical concerns at this time. Avss, NAD Incisions clean and dry A/p: Continue present management Mobilize as tolerated Plan for dc home early part of the week. * Brandi Moya APRN-STRAIGHTENER HAND - 12/22/2020 8:08 AM CDT Heart Failure Progress Note Date of Service: 12/22/2020 Carli Koroma is a 75 y.o. y.o. female. 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 female who initially presented to outside hospital in [place], [place] on 12/06/20 reporting chief complaint of chest pain, shortness of b reath, nausea with diaphoresis. She was found to have elevated troponin with NST BONY; went to clinical laboratory technician for IABP placement. Her IABP was placed to [facility] and develop ed a leak; therefore it was discontinued to prior to her transfer to [facility]. She was also found to have elevated BNP of 927 with HFrEF (30%) on echocardiogram. P ast medical history includes HTN, HLD, DM 2, CKD II, neuropathy. She underwent two vessel CABG (with COFFMAN to LAD and RSVG to OM ) by Dr Webster on 12/16/20. Recommendations/Plan: 1. Inotrope/Vasopressor therapy: weaned milrinone off 12/20 morning.Renal functio n and vitals remain stable following discontinuation. 2. Diuretic therapy: Continue IV Lasix 20 mg bid today and recommend transitioni ng to lasix 40 mg PO daily tomorrow. 3. Temporary pacing wires VVI 60 - may be removed by primary team. 4. Continue spironolactone 25mg Qd 5. Swtich metoprolol tart to metoprolol succinate 12.5mg BID. (ordered) 6. Continue Losartan 12.5mg (started 12/21) 7. Limited TTE 12/20: LV severely dilated, LVEF 25%, segmental wall motion abnorm alities. RV normal size with mildly reduced systolic function. Normal biatrial size. IVC not well seen, RA pressure cannot be estimated. No major valvular a bnormalities on limited views. No pericardial effusion. No major change compar ed to study 12/13/2020. 8. We will continue to uptitrate GDMT as an outpatient to highest tolerated dose s and then reassess LVEF. If LVEF remains less than or equal to 35% we will nee d to refer for BUS COMPANY MANAGER-D placement. 9. We will plan to initiate SGLT2 inhibitor as an outpatient. 10. LifeVest at discharge. At Discharge: 1. Follow Up: appointment with a member of the HF team within 7 calendar days of discharge. 2. Cardiac Rehab TRISTEN Gonzalez Available on Voalte Assessment: Acute on chronic systolic HFrEF, EF: 30%. Cardiogenic shock Limited TTE 12/20: LV severely dilated, LVEF 25%, segmental wall motion abnormali ties. RV normal size with mildly reduced systolic function. Normal biatrial si ze. IVC not well seen, RA pressure cannot be estimated. No major valvular abno rmalities on limited views. No pericardial effusion. No major change compared to study 12/13/2020. Major Complications or Comorbidities (LONGTERM): acute/ acute on chronic systolic and /or diastolic heart failure NYHA functional class III (marked limitation of physical activity - comfortable at rest, but less than ordinary activity causes symptoms of HF e.g., getting mariano ssed or standing from a sitting position), ACC Stage C (structural heart disease with prior or current symptoms of HF). She presents with signs of hypervolemia with left ventricular failure without s igns of low flow state. Admission BNP: 927 on 12/06 (OSH) Prior to admission diuretic regimen: None Intake/Output I/O last 24 hours:+117 mL I/O entire stay: +1.4 L Urine output/24 hours: 1170 L (not accurate as documented by RN) Vitals: 12/20/20 1104 12/21/20 0508 12/22/20 0358 Weight: 61.2 kg (135 lb) 60.1 kg (132 lb 6.4 oz) 60.3 kg (133 lb) Goal Dry Weight: ~128 lbs Guideline Based Heart Failure Therapies: GDMT TUGBOAT OPERATOR Changes BB Atenolol 100 mg po daily Metoprolol 25 mg in AM, 12.5 mg in PM 12/11 Toprol XL 25 mg qhs 12/16 held post op 12/18: Metoprolol tartrate 12.5 mg bid 12/22: Switch to metoprolol succinate 12.5 mg bid ACEI/ARB/ARNI Previously on Irbesartan 12/21: Losartan 12.5 mg daily SGLT-2 Inhibitor N/A *consider initiating in outpt setting Aldosterone Antagonist N/A 12/11 Starting Spironolactone 12.5 mg daily 12/13 increase suleman to 25 mg daily 12/16 held post op 12/20: Start spironolactone 25 mg daily Hydralazine/Nitrate N/A Ivabradine N/A HRMT N/A *pt may benefit from BUS COMPANY MANAGER-D if EF does not improve with GDMT Anticoagulation for Afib/flutter N/A Cardiac Rehab Evaluation for LVEF <40% Will plan for upon discharge Diuretic Therapy Prior to admission dose N/A Given on admission 12/07 IV lasix 40 mg x1 Daily Dosing 12/08-12/15 Lasix 20 mg po daily 12/16 held post op 12/18-12/22: Lasix 20 mg IV twice daily Cardiomyopathy, ischemic - likely secondary to ischemic etiology after recent [facility] - no TUGBOAT OPERATOR GDMT; will start with low dose Toprol XL and Spironolactone, consider l ow dose Losartan after surgery (see table above) -See echocardiogram results above 12/20 - pt will have continued up titration of GDMT and may require BUS COMPANY MANAGER-D in outpt set ting w/ LBBB on EKG > LifeVest at discharge NSTEMI, CAD - pt presented to OSH w/ NSTEMI; had IABP placed initially; transferred to [facility] for further management - 12/07 admit troponin >22.9>18.63>12.99>11.67>4/59>0.64 on 12/12 - CABG x 2 with COFFMAN to LAD and RSVG to OM on 12/16/[address] Webster HLD - 12/08 lipid panel: Cholesterol 215, trigs 358, HDL 30, LDL 141 - no TUGBOAT OPERATOR statins; has failed atorvastatin and rosuvastatin 5 and 10 mg with repo rts of myalgia pain (resolved after stopping) consider trial of pravastatin 5-10 mg daily as lowest side effect profile and titrate up to highest tolerated dose - currently on rosuvastatin 10 mg Q 72 hours and zetia 10 mg daily > managed per primary team DM 2 - 12/07/20 HgbA1c 5.9 - TUGBOAT OPERATOR Janumet XR on hold during admission - Sliding scale Insulin while admitted - pt w/ mod amt neuropathy; takes gabapentin 300 mg 5x/day at home - currently receiving gabapentin 300 mg at noon, 600 mg at 1700, 600 mg qhs > managed per primary team > Plan to initiate SGLT2 inhibitor as outpatient CKD II - admit creatinine 0.71-->0.69>>>>0.72>0.67 today (12/22) > daily labs per primary team Post-op Course of Events 12/16 IABP inserted post operatively, removed 12/17 Reason for Consultation: Evaluation and recommendations re: heart failure manag ement post CABG Subjective: Patient reports continued improvement. She was walking with cardiac rehabilitat ion without symptoms this AM. Currently she is sitting in chair conversing with daughter. She did have positional lightheadedness this morning when first risi ng but resolved quickly. Her appetite is diminished and stable. She has been en couraged on intake of supplemental protein drinks. She has mild sternal discomf ort. She denies shortness of breath, palpitation, near syncope, lower extremity edema, abdominal distention. Objective: Allergies: Allergies Allergen Reactions Crestor [Rosuvastatin] MUSCLE PAIN Medications: Scheduled Meds:allopurinoL (ZYLOPRIM) tablet 100 mg, 100 mg, Oral, QDAY aspirin chewable tablet 81 mg, 81 mg, Oral, QDAY ezetimibe (ZETIA) tablet 10 mg, 10 mg, Oral, QHS furosemide (LASIX) injection 20 mg, 20 mg, Intravenous, BID(9-17) gabapentin (NEURONTIN) capsule 300 mg, 300 mg, Oral, Q8H heparin (porcine) PF syringe 5,000 Units, 5,000 Units, Subcutaneous, Q8H insulin aspart (U-100) (NOVOLOG FLEXPEN U-100 INSULIN) injection PEN 0-6 Units, 0-6 Units, Subcutaneous, ACHS (22) lidocaine (LIDODERM) 5 % topical patch 1 patch, 1 patch, Topical, QDAY losartan (COZAAR) tablet 12.5 mg, 12.5 mg, Oral, QDAY melatonin tablet 3 mg, 3 mg, Oral, QHS metoprolol tartrate tablet 12.5 mg, 12.5 mg, Oral, BID polyethylene glycol 3350 (MIRALAX) packet 17 g, 1 packet, Oral, BID rosuvastatin (CRESTOR) tablet 10 mg, 10 mg, Oral, Q72H* senna/docusate (SENOKOT-S) tablet 2 tablet, 2 tablet, Oral, BID SITagliptin (JANUVIA) tablet 100 mg, 100 mg, Oral, QDAY spironolactone (ALDACTONE) tablet 25 mg, 25 mg, Oral, QDAY Continuous Infusions: PRN and Respiratory Meds:acetaminophen Q6H PRN OR acetaminophen Q6H PRN, alu m/mag hydroxide/simeth Q4H PRN, bisacodyL QDAY PRN, hydrALAZINE Q6H PRN, lidocai ne PF PRN, magnesium sulfate PRN OR magnesium oxide PRN, meclizine TID PRN, milk of magnesia (CONC) QDAY PRN, nalOXone PRN, ondansetron Q6H PRN OR ondan setron (ZOFRAN) IV Q6H PRN, potassium chloride SR PRN OR potassium chloride PRN OR potassium chloride in water PRN, traMADoL Q6H PRN Medications Prior to Admission Medication Sig Dispense Refill Last Dose allopurinoL (ZYLOPRIM) 100 mg tablet Take 100 mg by mouth daily. Take with f ood. Indications: treatment to prevent acute gout attack antiox #8/om3/dha/epa/lut/zeax (PRESERVISION AREDS 2 (OMEGA-3) PO) Take 1 ta blet by mouth daily. atenoloL (TENORMIN) 100 mg tablet Take 100 mg by mouth daily. Indications: h igh blood pressure gabapentin (NEURONTIN) 300 mg capsule Take 300 mg by mouth five times daily. SITagliptin-metformin (JANUMET XR) 100-1,000 mg tablet Take 1 tablet by mout h daily. Indications: type 2 diabetes mellitus Vital Signs: Last Filed Vital Signs: 24 Hour Range BP: 129/62 (12/23 799) Temp: 36.7 C (98 F) (12/23 799) Pulse: 93 (12/23 799) Respirations: 16 PER MINUTE (12/23 799) SpO2: 98 % (12/23 799) BP: (117-129)/(49-67) Temp: [36.3 C (97.4 F)-36.7 C (98.1 F)] Pulse: [82-98] Respirations: [16 PER MINUTE-20 PER MINUTE] SpO2: [95 %-100 %] Intensity Pain Scale (Self Report): 0 (12/21/20 1510) Physical Exam: General Appearance: thin, no distress, sitting in chair beside bed Skin: warm and dry, pale Digits and Nails: no cyanosis or clubbing Neck Veins: JVP ~7cm, HJR negative Chest Inspection: sternal incision/dressing C/D/I, chest tube sites with dressin g C/D/I Respiratory Effort: breathing comfortably, no respiratory distress Auscultation/Percussion: lungs clear to auscultation, no rales or rhonchi, no wh eezing Cardiac Rhythm: regular rhythm and normal rate Cardiac Auscultation: S1, S2 not clearly heard no rub, no S3 gallop, no S4 falk p Murmurs: no murmur Pedal Pulses: normal symmetric pedal pulses Lower Extremity Edema: no lower extremity edema Peripheral Circulation: distal upper and lower extremities warm and well-perfuse d Abdominal Exam: soft, non-tender, no masses, bowel sounds normal, Orientation: alert and answering questions appropriately Neurologic Exam: moving all 4 extremities Laboratory Review: CBC w/Diff Lab Results Component Value Date/Time WBC 9.9 12/22/2020 04:57 AM RBC 3.31 (L) 12/22/2020 04:57 AM HGB 10.6 (L) 12/22/2020 04:57 AM HCT 30.7 (L) 12/22/2020 04:57 AM MCV 92.8 12/22/2020 04:57 AM MCH 32.0 12/22/2020 04:57 AM MCHC 34.5 12/22/2020 04:57 AM RDW 14.8 12/22/2020 04:57 AM PLTCT 369 12/22/2020 04:57 AM MPV 7.2 12/22/2020 04:57 AM Lab Results Component Value Date/Time NEUT 55 12/16/2020 05:33 AM ANC 4.50 12/16/2020 05:33 AM LYMA 30 12/16/2020 05:33 AM ALC 2.40 12/16/2020 05:33 AM IMAN 11 12/16/2020 05:33 AM AMC 0.90 (H) 12/16/2020 05:33 AM EOSA 3 12/16/2020 05:33 AM AEC 0.30 12/16/2020 05:33 AM BASA 1 12/16/2020 05:33 AM ABC 0.00 12/16/2020 05:33 AM Chemistry Lab Results Component Value Date/Time NA 142 12/22/2020 04:57 AM K 4.2 12/22/2020 04:57 AM CL 105 12/22/2020 04:57 AM CO2 26 12/22/2020 04:57 AM GAP 11 12/22/2020 04:57 AM BUN 23 12/22/2020 04:57 AM CR 0.67 12/22/2020 04:57 AM GLU 145 (H) 12/22/2020 04:57 AM Lab Results Component Value Date/Time CA 9.0 12/22/2020 04:57 AM ALBUMIN 3.8 12/16/2020 05:33 AM TOTPROT 6.8 12/16/2020 05:33 AM ALKPHOS 62 12/16/2020 05:33 AM AST 21 12/16/2020 05:33 AM ALT 14 12/16/2020 05:33 AM TOTBILI 0.8 12/16/2020 05:33 AM GFR >60 12/22/2020 04:57 AM GFRAA >60 12/22/2020 04:57 AM Renal Function Lab Results Component Value Date/Time NA 142 12/22/2020 04:57 AM K 4.2 12/22/2020 04:57 AM CL 105 12/22/2020 04:57 AM CO2 26 12/22/2020 04:57 AM GAP 11 12/22/2020 04:57 AM BUN 23 12/22/2020 04:57 AM BUN 32 (H) 12/21/2020 04:40 AM BUN 44 (H) 12/20/2020 05:05 AM Lab Results Component Value Date/Time CR 0.67 12/22/2020 04:57 AM CR 0.72 12/21/2020 04:40 AM CR 0.95 12/20/2020 05:05 AM GLU 145 (H) 12/22/2020 04:57 AM CA 9.0 12/22/2020 04:57 AM ALBUMIN 3.8 12/16/2020 05:33 AM Lipid Profile INR Lab Results Component Value Date CHOL 215 (H) 12/08/2020 TRIG 358 (H) 12/08/2020 HDL 30 (L) 12/08/2020 LDL 141 (H) 12/08/2020 VLDL 72 12/08/2020 NONHDLCHOL 185 12/08/2020 Lab Results Component Value Date INR 1.2 12/16/2020 Chest X-Ray: 12/22 1. Improvement in pulmonary edema. 2. Small bilateral pleural effusions, larger on the left, with similar bibasilar opacities, likely atelectasis.. Tele/ECG: SR w/ BBB, 70s-80s Echocardiogram Details: Echo Results (Last 3 results in the past 3 years) Echo EF LVIDD LA Size IVS LVPW Rest PAP (12/20/20) 25 (12/13/20) 6.11 (12/13/20) 3.83 (12/13/20) 0.92 (12/13/20) 0.99 (12/10/20) 34 (12/13/20) 30 (12/10/20) 5.50 (12/10/20) 3.70 (12/10/20) 1.10 (12/10/20) 0.80 (12/10/20) 30 TRISTEN Gonzalez * Robert Peters RN - 12/22/2020 7:30 AM CDT VSS. A&Ox4. Tolerating RA. SR c BBB on tele. No complaints of pain. No BM overnight. UOP adequate. Surgical incisions and dressings C/D/I. * Elver Puga MD - 12/22/2020 7:25 AM CDT Daily Progress Note Today's Date: 12/22/2020 Name: Carli Koroma Admission Date: 12/07/2020 (LOS: 15 days) Assessment: Carli Koroma is a 75 y.o. female with recent CABG (12/17/2011) w/ IA BP removal 12/17 c/b popliteal thrombus who is now 5 Days Post-Op from a poplitea l thrombectomy (12/17/2020) with Dr. Salinas. 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 Pain is controlled. Sitting comfortably in bed. Objective: BP: (117-128)/(49-67) Temp: [36.3 C (97.4 F)-36.7 C (98.1 F)] Pulse: [82-98] Respirations: [16 PER MINUTE-20 PER MINUTE] SpO2: [95 %-100 %] Body mass index is 24.33 kg/m. BMI Category: Acceptable (19 to <25) Lab Results Component Value Date/Time HGB 10.6 (L) 12/22/2020 04:57 AM HCT 30.7 (L) 12/22/2020 04:57 AM WBC 9.9 12/22/2020 04:57 AM PLTCT 369 12/22/2020 04:57 AM INR 1.2 12/16/2020 12:30 PM Lab Results Component Value Date/Time NA 142 12/22/2020 04:57 AM K 4.2 12/22/2020 04:57 AM CL 105 12/22/2020 04:57 AM CO2 26 12/22/2020 04:57 AM BUN 23 12/22/2020 04:57 AM CR 0.67 12/22/2020 04:57 AM MG 2.1 12/22/2020 04:57 AM CA 9.0 12/22/2020 04:57 AM Lab Results Component Value Date/Time GLUPOC 162 (H) 12/21/2020 10:29 PM GLUPOC 160 (H) 12/21/2020 05:38 PM GLUPOC 203 (H) 12/21/2020 11:27 AM Physical Exam Constitutional: She is oriented to person, place, and time. She appears well-dev eloped and well-nourished. No distress. HENT: Head: Normocephalic and atraumatic. Cardiovascular: Normal rate and intact distal pulses. Pulses: Radial pulses are 2+ on the right side and 2+ on the left side. Dorsalis pedis pulses are 2+ on the right side and 2+ on the left side. Posterior tibial pulses are 2+ on the right side and 2+ on the left side. Pulmonary/Chest: Effort normal. No respiratory distress. Abdominal: Soft. She exhibits no distension. There is no abdominal tenderness. Musculoskeletal: General: Normal range of motion. Comments: R groin ecchymosis, improving Medial right lower extremity incision immediately distal to the knee well approx imated with no drainage or erythema, covered with steri-strips Neurological: She is alert and oriented to person, place, and time. Skin: Skin is warm and dry. Psychiatric: She has a normal mood and affect. Her behavior is normal. Judgment and thought content normal. Malnutrition Details: Active Wounds Wounds 12/16/20828 Surgical Incision Mid Sternum (Active) 12/16/20828 Sternum Wound Type: Surgical Incision Pressure Injury Stages: Pressure Injury Present On Inpatient Admission: Wound/Pressure Injury Orientation: Mid Wound Description (Comments): Wound Type:: Agree With My Assessment? Yes 12/22/20301 Wound Dressing Status Intact 12/21/202036 Wound Dressing and / or Treatment Silverlon 12/21/202036 Wound Drainage Amount None 12/21/202036 Wound Base Assessment Dressing intact, base not assessed 12/21/202036 Surrounding Skin Assessment Intact 12/21/202036 Wound Site Closure Wound Adhesive Bandage 12/21/202036 Number of days: 6 Wounds 12/16/20 0829 Surgical Incision (Active) 12/16/20828 Wound Type: Surgical Incision Pressure Injury Stages: Pressure Injury Present On Inpatient Admission: Wound/Pressure Injury Orientation: Wound Description (Comments): Wound Type:: Agree With My Assessment? Yes 12/22/20 030 Wound Dressing Status Open to air 12/21/202036 Wound Dressing and / or Treatment Silverlon 12/21/20 1250 Wound Securement / Protective Device Rina wrap 12/21/20 1250 Wound Drainage Amount None 12/21/202036 Wound Base Assessment Clean;Dry 12/21/202036 Surrounding Skin Assessment Dry;Intact 12/21/202036 Wound Site Closure Sutures 12/21/202036 Number of days: 6 Wounds 12/16/20 0848 Surgical Incision Inner;Upper;Left Leg (Active) 12/16/20 0848 Leg Wound Type: Surgical Incision Pressure Injury Stages: Pressure Injury Present On Inpatient Admission: Wound/Pressure Injury Orientation: Inner;Upper;Left Wound Description (Comments): Wound Type:: Agree With My Assessment? Yes 12/22/20 030 Wound Dressing Status Open to air 12/21/202036 Wound Securement / Protective Device Rina wrap 12/21/20 1250 Wound Drainage Amount None 12/21/202036 Wound Base Assessment Clean;Dry;Intact 12/21/202036 Surrounding Skin Assessment Dry;Intact 12/21/202036 Wound Site Closure Approximated 12/21/202036 Number of days: 6 Wounds 12/17/20 1333 Surgical Incision Right;Medial (Active) 12/17/20 1333 Wound Type: Surgical Incision Pressure Injury Stages: Pressure Injury Present On Inpatient Admission: Wound/Pressure Injury Orientation: Right;Medial Wound Description (Comments): Wound Type:: Agree With My Assessment? Yes 12/22/20301 Wound Dressing Status Open to air 12/21/202036 Wound Dressing and / or Treatment Primapore 12/21/20 1250 Wound Drainage Amount None 12/21/202036 Wound Base Assessment Clean;Dry;Intact 12/21/202036 Surrounding Skin Assessment Dry;Intact 12/21/202036 Wound Site Closure Approximated 12/21/202036 Number of days: 5 Wounds 12/19/201927 Pressure Injury Mid Sacrum (Active) 12/19/201927 Sacrum Wound Type: Pressure Injury Pressure Injury Stages: Stage 1 Pressure Injury Present On Inpatient Admission: Wound/Pressure Injury Orientation: Mid Wound Description (Comments): Wound Type:: Agree With My Assessment? Yes 12/22/20301 Wound Dressing Status Intact 12/21/202036 Wound Drainage Amount None 12/21/202036 Wound Base Assessment [place];Non-blanchable 12/21/202036 Surrounding Skin Assessment Dry;Intact 12/21/202036 Wound Site Closure Wound Adhesive Bandage 12/21/202036 Number of days: 3 Elver Puga MD Service Pager: # [phone] Associated attestation - Musa Salinas MD - 12/28/2020 7:55 PM CDT ATTESTATION I personally performed the turner portions of the E/M visit, discussed case with re sident and concur with resident documentation of history, physical exam, assessm ent, and treatment plan unless otherwise noted. She has expected incisional pain. Right medial calf incision intact. Good dist al pulses. Staff name: Musa Salinas MD Date: 12/28/2020 * Cheryl Kimbrough - 12/21/2020 2:32 PM CDT 12/21/20 1341 Cardiac Rehab Activity Comments Patient finished eating lunch and was agreeable to walk. Patient walked 180 ft in hallway with 2 seated rest breaks. Patient assisted back to room and into bed at completion. Mobility Progressive Mobility Level 8 Level of Assistance Assist X1 Assistive Device Walker Time Tolerated 11-30 minutes Activity Limited By Fatigue;Pain;Weakness * Cheryl Kimbrough - 12/21/2020 2:30 PM CDT 12/21/20 1325 Cardiac Rehab Activity Comments Patient eating lunch at this time and declined ambulation. Will try aga in later. * Ayleen White MD - 12/21/2020 10:43 AM CDT Daily Progress Note Today's Date: 12/21/2020 Name: Carli Koroma Admission Date: 12/07/2020 (LOS: 14 days) Assessment: Carli Koroma is a 75 y.o. female with recent CABG (12/17/2011) w/ IA BP removal 12/17 c/b popliteal thrombus who is now 4 Days Post-Op from a poplitea l thrombectomy (12/17/2020) with Dr. Salinas. 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 ([facility] [place]) NSTEMI, initial episode of care ([facility] [place]) Essential hypertension Hyperlipidemia NYHA class 2 acute on chronic systolic heart failure ([facility] [place]) Ischemic cardiomyopathy Type 2 diabetes mellitus ([facility] [place]) Acute blood loss anemia Plan: - good pedal pulses in bilateral lower extremities - recovering appropriately from surgery - coordinate to f/u with vascular surgery at next cardiology appointment after d ischarge - please page [phone] with any questions Subjective: No acute events overnight. Pain is controlled. Resting comfortably in bed. No co ncerns today. Objective: BP: (106-152)/(55-80) Temp: [36.6 C (97.9 F)-36.8 C (98.3 F)] Pulse: [71-93] Respirations: [16 PER MINUTE-19 PER MINUTE] SpO2: [94 %-98 %] Body mass index is 24.22 kg/m. BMI Category: Acceptable (19 to <25) Lab Results Component Value Date/Time HGB 9.1 (L) 12/21/2020 04:40 AM HCT 26.9 (L) 12/21/2020 04:40 AM WBC 9.8 12/21/2020 04:40 AM PLTCT 296 12/21/2020 04:40 AM INR 1.2 12/16/2020 12:30 PM Lab Results Component Value Date/Time NA 140 12/21/2020 04:40 AM K 4.3 12/21/2020 04:40 AM CL 105 12/21/2020 04:40 AM CO2 24 12/21/2020 04:40 AM BUN 32 (H) 12/21/2020 04:40 AM CR 0.72 12/21/2020 04:40 AM MG 2.3 12/21/2020 04:40 AM CA 8.8 12/21/2020 04:40 AM Lab Results Component Value Date/Time GLUPOC 160 (H) 12/21/2020 07:34 AM GLUPOC 178 (H) 12/20/2020 10:13 PM GLUPOC 176 (H) 12/20/2020 04:59 PM Physical Exam Constitutional: She is oriented to person, place, and time. She appears well-dev eloped and well-nourished. No distress. HENT: Head: Normocephalic and atraumatic. Cardiovascular: Normal rate and intact distal pulses. Pulses: Radial pulses are 2+ on the right side and 2+ on the left side. Dorsalis pedis pulses are 2+ on the right side and 2+ on the left side. Pulmonary/Chest: Effort normal. No respiratory distress. Abdominal: Soft. She exhibits no distension. There is no abdominal tenderness. Musculoskeletal: General: Normal range of motion. Comments: R groin ecchymosis evolving well. Medial right lower extremity incision immediately distal to the knee well approx imated with no drainage or erythema. Neurological: She is alert and oriented to person, place, and time. Skin: Skin is warm and dry. Psychiatric: She has a normal mood and affect. Her behavior is normal. Judgment and thought content normal. Malnutrition Details: Active Wounds Wounds 12/16/20828 Surgical Incision Mid Sternum (Active) 12/16/20828 Sternum Wound Type: Surgical Incision Pressure Injury Stages: Pressure Injury Present On Inpatient Admission: Wound/Pressure Injury Orientation: Mid Wound Description (Comments): Wound Type:: Agree With My Assessment? Yes 12/21/20 034 Wound Dressing Status Intact 12/20/202048 Wound Dressing and / or Treatment Silverlon 12/20/202048 Wound Drainage Amount None 12/20/202048 Wound Base Assessment Dressing intact, base not assessed 12/20/202048 Surrounding Skin Assessment Intact 12/20/202048 Wound Site Closure Wound Adhesive Bandage 12/20/202048 Number of days: 5 Wounds 12/16/20828 Surgical Incision (Active) 12/16/20828 Wound Type: Surgical Incision Pressure Injury Stages: Pressure Injury Present On Inpatient Admission: Wound/Pressure Injury Orientation: Wound Description (Comments): Wound Type:: Agree With My Assessment? Yes 12/21/20 034 Wound Dressing Status Open to air 12/20/202048 Wound Dressing and / or Treatment Silverlon 12/17/20 0800 Wound Securement / Protective Device Rina wrap 12/17/20 0800 Wound Drainage Amount None 12/20/202048 Wound Base Assessment Clean;Dry 12/20/202048 Surrounding Skin Assessment Dry;Intact 12/20/202048 Wound Site Closure Approximated;Sutures 12/20/202048 Number of days: 5 Wounds 12/16/20 0848 Surgical Incision Inner;Upper;Left Leg (Active) 12/16/20 0848 Leg Wound Type: Surgical Incision Pressure Injury Stages: Pressure Injury Present On Inpatient Admission: Wound/Pressure Injury Orientation: Inner;Upper;Left Wound Description (Comments): Wound Type:: Agree With My Assessment? Yes 12/21/20340 Wound Dressing Status Open to air 12/20/202048 Wound Securement / Protective Device Rina wrap 12/17/20 0800 Wound Drainage Amount None 12/20/202048 Wound Base Assessment Clean;Dry 12/20/202048 Surrounding Skin Assessment Bruised;Intact 12/20/202048 Wound Site Closure Approximated;Steri-strips 12/20/202048 Number of days: 5 Wounds 12/17/20 1333 Surgical Incision Right;Medial (Active) 12/17/20 1333 Wound Type: Surgical Incision Pressure Injury Stages: Pressure Injury Present On Inpatient Admission: Wound/Pressure Injury Orientation: Right;Medial Wound Description (Comments): Wound Type:: Agree With My Assessment? Yes 12/21/20340 Wound Dressing Status Open to air 12/20/202048 Wound Dressing and / or Treatment Primapore 12/19/20 2030 Wound Drainage Amount None 12/20/202048 Wound Base Assessment Dressing intact, base not assessed 12/20/202048 Surrounding Skin Assessment Dry;Intact 12/20/202048 Wound Site Closure Wound Adhesive Bandage 12/20/202048 Number of days: 4 Wounds 12/19/201927 Pressure Injury Mid Sacrum (Active) 12/19/201927 Sacrum Wound Type: Pressure Injury Pressure Injury Stages: Stage 1 Pressure Injury Present On Inpatient Admission: Wound/Pressure Injury Orientation: Mid Wound Description (Comments): Wound Type:: Agree With My Assessment? Yes 12/21/20 0341 Wound Dressing Status Intact 12/20/202048 Wound Drainage Amount None 12/20/202048 Wound Base Assessment [place];Non-blanchable 12/20/202048 Surrounding Skin Assessment Intact 12/20/202048 Wound Site Closure Wound Adhesive Bandage 12/20/202048 Number of days: 2 Ayleen White MD Service Pager: # [phone] Associated attestation - Musa Salinas MD - 12/21/2020 11:10 AM CDT ATTESTATION I personally performed the turner portions of the E/M visit, discussed case with re sident and concur with resident documentation of history, physical exam, assessm ent, and treatment plan unless otherwise noted. She is without new complaints. She has some incisional discomfort. Good pedal pulses bilaterally. Right medial calf incision with minimal edema. May increas e activity as tolerated from my standpoint. Can coordinate follow-up with her C ardiothoracic follow-up appointment. Staff name: Musa Salinas MD Date: 12/21/2020 * Cheryl Kimbrough - 12/21/2020 10:06 AM CDT 12/21/20 0853 Cardiac Rehab Activity Comments Arrived to walk with patient but patient about to go on walk with OT. W ill come back later this afternoon for second walk. * Brittany Hernandez PA-C - 12/21/2020 9:25 AM CDT Cardiothoracic Surgery Progress Note Carli Koroma Today's Date: 12/21/2020 Admission Date: 12/07/2020 LOS: 14 days 12/16/2020 Procedures: 1. CABG x 2 with COFFMAN to LAD and SV to OM1 (CPT 89753, 94648) 2. Endoscopic Vein [place] (CPT 74331) 3. Right femoral arterial intraaortic balloon pump placement 4. Transesophageal echocardiography 12/17/2020 Procedures: Thrombus involving the popliteal and anterior tibial arteries. Thrombectomy perf ormed with 3Fr Kasia balloon with return of distal pulses. 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 Mild delirium in CTI. cont chalo onin. No seroquel for now d/t prolonged QTc. Holding narcotics. Continue schedul ed APAP with PRN low dose tramadol. Cont Gabapentin 300 mg Q8H. 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 CV SR with BBB rate 70-80's. SBP 120-150s. IABP pulled 12/17. Epi weaned off 12/18, Milrinone off 12/20. Cont metoprolol 12.5mg BID, losartan 12.5 q day, bASA, zetia, crestor q 72 hrs. Intra op AIDAN LVEF 20%; post-op LVEF 25-30%. Repeat TTE 12/20: The calculated ejection fraction is 25%. Order placed for LifeVest on . Vascular: s/p R popliteal thrombectomy for acute thrombus following IABP removal 12/17. Pedal pulses restored and pulses now easily palpable. No need for AC per vascular surgery. Appreciate vascular surgery assistance. Resp CXR no acute changes. 1 L NC, wean O2. Cont IS, aggressive pulm toil et. Renal Baseline sCr. 0.83. Scr today 0.72. lasix 20 mg IV BID. UOP 1250mL/24 hrs, net -1L/24hrs, ne +462mL/since admit. Weight down 2.7kg from admit, but Net +1.4L for admission. GI - ADAT, continue post op bowel regimen. LBM 12/21. ID Afebrile. Wbc 11.8. Heme Hgb 9.1 stable. Continue foot pumps for DVT prophylaxis, SQ Heparin. FEN replace Mg and K to minimize the risk of cardiac arrhythmias. Hgb A1C 5. 9%, on sitagliptin/metformin TUGBOAT OPERATOR, Will restart sitafliptin and reduce SSI to lo w dose. BG 152-240. Activity ambulated 20-160ft yesterday. OT/PT consulted. Rehab consulted Disposition: LifeVest ordered, appreciate HF recs, add partial TUGBOAT OPERATOR DM meds, inc rease activity, needs a few mor days. Prophylaxis Review: Lines: No Antibiotic Usage: No VTE: Pharmacological prophylaxis; SQ Heparin and Mechanical prophylaxis; Foot p ump Urinary Catheter: No Brittany Hernandez PA-C Voalte/pager [phone] 12/21/2020 Subjective: HPI: Carli Koroma is a 75 y.o. female who initially presented to outside hospit al in [place], [place] on 12/06/20 reporting chief complaint of chest pain, shortness of breath, nausea with diaphoresis. She was found to have elevated troponin with NSTEMI; went to clinical laboratory technician for IABP placement. Her IABP was placed to SFA and de veloped a leak; therefore it was discontinued to prior to her transfer to [facility]. She was also found to have elevated BNP of927 with HFrEF (30%) on echocardiog erika. Past medical history includes HTN, HLD, DM 2, CKD II, neuropathy.She is n ow s/p CABG x [address] Webster on 12/16/20. 12/17: R IABP removal. Acute popliteal thrombus s/p thrombectomy with vascular burns rgery. Epi 0.06, milrinone 0.25. Work towards extubation. 12/18: epi @ 0.03 mcg/kg/min (slow wean to off), lasix 20 mg IV BID, d/c mediasti nal CTs, MDCF. Epi off. 12/19: Milrinone 0.125mcg/kg/min, pull CTs, cont scheduled diuretics, re-engage H eart Failure 12/20: milrinone weaned off Objective: Medications: Scheduled Meds:allopurinoL (ZYLOPRIM) tablet 100 mg, 100 mg, Oral, QDAY aspirin chewable tablet 81 mg, 81 mg, Oral, QDAY ezetimibe (ZETIA) tablet 10 mg, 10 mg, Oral, QHS furosemide (LASIX) injection 20 mg, 20 mg, Intravenous, BID(9-17) gabapentin (NEURONTIN) capsule 300 mg, 300 mg, Oral, Q8H heparin (porcine) PF syringe 5,000 Units, 5,000 Units, Subcutaneous, Q8H insulin aspart (U-100) (NOVOLOG FLEXPEN U-100 INSULIN) injection PEN 0-6 Units, 0-6 Units, Subcutaneous, ACHS (22) lidocaine (LIDODERM) 5 % topical patch 1 patch, 1 patch, Topical, QDAY losartan (COZAAR) tablet 12.5 mg, 12.5 mg, Oral, QDAY melatonin tablet 3 mg, 3 mg, Oral, QHS metoprolol tartrate tablet 12.5 mg, 12.5 mg, Oral, BID polyethylene glycol 3350 (MIRALAX) packet 17 g, 1 packet, Oral, BID rosuvastatin (CRESTOR) tablet 10 mg, 10 mg, Oral, Q72H* senna/docusate (SENOKOT-S) tablet 2 tablet, 2 tablet, Oral, BID SITagliptin (JANUVIA) tablet 100 mg, 100 mg, Oral, QDAY spironolactone (ALDACTONE) tablet 25 mg, 25 mg, Oral, QDAY Continuous Infusions: PRN and Respiratory Meds:acetaminophen Q6H PRN OR acetaminophen Q6H PRN, alu m/mag hydroxide/simeth Q4H PRN, bisacodyL QDAY PRN, hydrALAZINE Q6H PRN, lidocai ne PF PRN, magnesium sulfate PRN OR magnesium oxide PRN, meclizine TID PRN, milk of magnesia (CONC) QDAY PRN, nalOXone PRN, ondansetron Q6H PRN OR ondan setron (ZOFRAN) IV Q6H PRN, potassium chloride SR PRN OR potassium chloride PRN OR potassium chloride in water PRN, traMADoL Q6H PRN Vital Signs: Last Filed Vital Signs: 24 [facility] BP: 152/79 (12/21 702) Temp: 36.6 C (97.9 F) (12/21 702) Pulse: 93 (07/17 0946) Respirations: 19 PER MINUTE (12/21 945) SpO2: 97 % (12/21 945) Height: 157.5 cm (62") (12/21 1103) BP: (106-152)/(55-80) Temp: [36.6 C (97.9 F)-36.8 C (98.3 F)] Pulse: [71-93] Respirations: [16 PER MINUTE-19 PER MINUTE] SpO2: [94 %-98 %] Vitals: 12/20/20 0400 12/20/20 1104 12/21/20 0508 Weight: 61.5 kg (135 lb 9.6 oz) 61.2 kg (135 lb) 60.1 kg (132 lb 6.4 oz) Intake/Output Summary: (Last 24 hours) Intake/Output Summary (Last 24 hours) at 12/21/2020 1025 Last data filed at 12/21/2020 0508 Gross per 24 hour Intake 240 ml Output 950 ml Net -710 ml Physical Exam: Neuro: A&Ox4 Cardiovascular: RRR no rub or murmur Respiratory: diminished bases GI: soft, NT, active BS Extremities: trace BLE edema, peripheral pulses palpable, R groin bruising - no hematoma, R thigh bruising (old) Incisions: Sternal incision dressing, dry and intact. No crepitus or sternal ins tability. Pertinent Meds: Taking Reason for Not Taking 1. Aspirin yes 2. B-Doug yes 3. Statin yes 4. RINA/ARB yes LABS: Recent Labs 12/19/2030212/20/20 0505 12/21/20 0440 NA 142 141 140 K 4.5 4.1 4.3 CL 108 107 105 CO2 21 24 24 GAP 13* 10 11 BUN 29* 44* 32* CR 0.86 0.95 0.72 GLU 173* 142* 138* CA 8.7 8.8 8.8 MG 2.4 2.6 2.3 Recent Labs 12/19/2030212/20/20 0505 12/21/20 0440 WBC 15.5* 11.8* 9.8 HGB 7.4* 8.6* 9.1* HCT 22.5* 25.5* 26.9* PLTCT 177 239 296 Estimated Creatinine Clearance: 65 mL/min (based on SCr of 0.72 mg/dL). Vitals: 12/20/20 0400 12/20/20 1104 12/21/20 0508 Weight: 61.5 kg (135 lb 9.6 oz) 61.2 kg (135 lb) 60.1 kg (132 lb 6.4 oz) No results for input(s): PHART, PO2ART in the last 72 hours. Invalid input(s): PC02A Radiology and Other Diagnostic Procedures Review: Reviewed Associated attestation - Leo Andrea MD - 12/24/2020 8:12 AM CDT Ms. Pak is doing well following her high risk bypass surgery complicated by femoral embolectomy. AVSS, NAD Incisions are clean and dry Assessment plan: 1. DC home early part of the week 2. Continue secondary prevention meds Mobilize aggressively. * Deloris Serrano - 12/21/2020 8:48 AM CDT OCCUPATIONAL THERAPY ASSESSMENT NOTE Name: Carli Koroma : 1945 Age: [age] y.o. Admission Date: 12/07/2020 LOS: 14 days Mobility Patient Turn/Position: Chair Time Tolerated: 0-10 minutes Subjective Pertinent Dx per Physician: 75yo female who presented to OSH for shortness of a ir. She underwent cardiac catheterization for NSTEMI and was found to have sever e multivessel CAD. An IABP was placed, significant leak from her IABP and she wa s transferred to without IABP. s/p CABG 12/16, extubated 12/17; IABP removal; Acute loss in RLL pulses following IABP removal, s/p thrombectomy via popliteal exposure by vascular 12/17 Precautions: Sternal Precautions Pain / Complaints: Patient agrees to participate in therapy Objective Psychosocial Status: Willing and Cooperative to Participate Persons Present: Daughter Home Living Type of Home: House Home Layout: One Level;Able to Live on Main Level w/Bedrm/Bathrm Access Bathroom Shower / Tub: Tub/Shower Unit Bathroom Toilet: Standard Bathroom Equipment: Grab Bars in Shower;Built-in Seat in Shower;Hand-Held Shower Bathroom Accessibility: Accessible via Walker Prior Function Level Of [place]: Independent with ADLs and functional transfers;Independen t with homemaking w/ ambulation Lives With: Spouse Receives Help From: Spouse;Family Vision Current Vision: Wears Glasses All of the Time ADL's Where Assessed: Chair UE Dressing Assist: Modified Independent UE Dressing Deficits: Supervision/Safety;Increased Time To Complete LE Dressing Assist: Stand By Assist LE Dressing Deficits: Supervision/Safety;Increased Time To Complete;Don/Doff R S ock;Don/Doff L Sock Comment: Pt. found seated in chair. Pt. has had multiple visitors this morning and declined mobility. Pt. was able to jesse and doff gown and socks. Pt. neede d increased time to complete task, but completed without assistance. ADL Mobility End of Activity Status: Up in chair Transfer Comments: Pt. declined mobility this date. Pt. interested and motivate d for mobility at a later time. Activity Tolerance Endurance: 2/5 Tolerates 10-20 Minutes Exercise w/Multiple Rests Cognition Overall Cognitive Status: WFL to Adequately Complete Self Care Tasks Safely UE AROM Overall BUE AROM WNL: Yes Grasp: Bilateral Grasp Functional for Activity UE Strength / Tone Overall Strength / Tone: WFL Able to Perform ADL Tasks Education Persons Educated: Patient Barriers To Learning: None Noted Teaching Methods: Verbal Instruction Patient Response: Verbalized Understanding Topics: Role of OT, Goals for Therapy Goal Formulation: With Patient Assessment Assessment: Decreased ADL Status;Decreased Endurance;Decreased Self-Care Trans;D ecreased High-Level ADLs Prognosis: Good Goal Formulation: Patient AM-PAC 6 Clicks Daily Activity Inpatient Putting on and taking off regular lower body clothes?: A Little Bathing (Including washing, rinsing, drying): A Lot Toileting, which includes using toilet, bedpan, or urinal: A Little Putting on and taking off regular upper body clothing: A Little Taking care of personal grooming such as brushing teeth: A Little Eating meals?: None Daily Activity Raw Score: 18 Standardized (t-scale) score: 38.66 CMS 0-100% Score: 46.65 CMS G Code Modifier: CK Plan Progress: Improving as Expected OT Frequency: 5x/week OT Plan for Next Visit: Standing ADLs; out of room mobility. ADL Goals Patient Will Perform All ADL's: w/ Modified [place] Patient Will Perform Grooming: w/ Mod Independent Patient Will Perform LE Dressing: w/ Modified Independent Functional Transfer Goals Pt Will Perform All Functional Transfers: Modified Independent OT Discharge Recommendations Recommendation: Inpatient setting Recommendation for Therapy Post Discharge: Home health Patient Currently Requires Physical Assist With: All mobility;All personal care ADLs Comments: Pt. would benefit from continued Therapy post discharge to gain more e ndurance and strength to perform ADLs independently. Therapist: Deloris Serrano OTR/Alva [id number] Date: 12/21/2020 * Brandi Moya, AJ-STRAIGHTENER HAND - 12/21/2020 7:49 AM CDT Heart Failure Progress Note Date of Service: 12/21/2020 Carli Koroma is a 75 y.o. y.o. female. 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 female who initially presented to outside hospital in [place], [place] on 12/06/20 reporting chief complaint of chest pain, shortness of b reath, nausea with diaphoresis. She was found to have elevated troponin with NST BONY; went to clinical laboratory technician for IABP placement. Her IABP was placed to [facility] and develop ed a leak; therefore it was discontinued to prior to her transfer to [facility]. She was also found to have elevated BNP of 927 with HFrEF (30%) on echocardiogram. P ast medical history includes HTN, HLD, DM 2, CKD II, neuropathy. She underwent two vessel CABG (with COFFMAN to LAD and RSVG to OM ) by Dr Webster on 12/16/20. Recommendations/Plan: 1. Inotrope/Vasopressor therapy: weaned milrinone off 12/20 morning.Renal functio n and vitals remain stable following discontinuation. 2. Diuretic therapy: Continue IV Lasix 20 mg bid today and recommend transitioni ng to lasix 40 mg PO daily tomorrow. 3. Critical Care Medications per CTS and Critical Care Team/Anesthesiology. 4. Temporary pacing wires VVI 60 - important to maintain integrity of temp pacin g wires 5. Continue spironolactone 25mg Qd 6. Continue metoprolol tart 12.5mg BID. Recommend switch to metoprolol succinat e prior to discharge. 7. Start Losartan 12.5mg 12/21 (ordered) 8. Limited TTE 12/20: LV severely dilated, LVEF 25%, segmental wall motion abnorm alities. RV normal size with mildly reduced systolic function. Normal biatrial size. IVC not well seen, RA pressure cannot be estimated. No major valvular a bnormalities on limited views. No pericardial effusion. No major change compar ed to study 12/13/2020. 9. We will plan to initiate SGLT2 inhibitor as an outpatient. 10. LifeVest at discharge. At Discharge: 1. Follow Up: appointment with a member of the HF team within 7 calendar days of discharge. 2. Cardiac Rehab Brandi Moya APRN-YAYO Available on Voalte Assessment: Acute on chronic systolic HFrEF, EF: 30%. Cardiogenic shock Limited TTE 12/20: LV severely dilated, LVEF 25%, segmental wall motion abnormali ties. RV normal size with mildly reduced systolic function. Normal biatrial si ze. IVC not well seen, RA pressure cannot be estimated. No major valvular abno rmalities on limited views. No pericardial effusion. No major change compared to study 12/13/2020. Major Complications or Comorbidities (LONGTERM): acute/ acute on chronic systolic and /or diastolic heart failure NYHA functional class III (marked limitation of physical activity - comfortable at rest, but less than ordinary activity causes symptoms of HF e.g., getting mariano ssed or standing from a sitting position), ACC Stage C (structural heart disease with prior or current symptoms of HF). She presents with signs of hypervolemia with left ventricular failure without s igns of low flow state. Admission BNP: 927 on 12/06 (OSH) Prior to admission diuretic regimen: None Intake/Output I/O last 24 hours: -1010 mL I/O entire stay: +0.5 L Urine output/24 hours: 1250 L (not accurate as documented by RN) Vitals: 12/20/20 0400 12/20/20 1104 12/21/20 0508 Weight: 61.5 kg (135 lb 9.6 oz) 61.2 kg (135 lb) 60.1 kg (132 lb 6.4 oz) Goal Dry Weight: ~128 lbs Guideline Based Heart Failure Therapies: GDMT TUGBOAT OPERATOR Changes BB Atenolol 100 mg po daily Metoprolol 25 mg in AM, 12.5 mg in PM 12/11 Toprol XL 25 mg qhs 12/16 held post op 12/18: Metoprolol tartrate 12.5 mg bid ACEI/ARB/ARNI Previously on Irbesartan 12/21: Losartan 12.5 mg daily SGLT-2 Inhibitor N/A *consider initiating in outpt setting Aldosterone Antagonist N/A 12/11 Starting Spironolactone 12.5 mg daily 12/13 increase suleman to 25 mg daily 12/16 held post op 12/20: Start spironolactone 25 mg daily Hydralazine/Nitrate N/A Ivabradine N/A HRMT N/A *pt may benefit from BUS COMPANY MANAGER-D if EF does not improve with GDMT Anticoagulation for Afib/flutter N/A Cardiac Rehab Evaluation for LVEF <40% Will plan for upon discharge Diuretic Therapy Prior to admission dose N/A Given on admission 12/07 IV lasix 40 mg x1 Daily Dosing 12/08-12/15 Lasix 20 mg po daily 12/16 held post op 12/18-12/21: Lasix 20 mg IV twice daily Cardiomyopathy, ischemic - likely secondary to ischemic etiology after recent [facility] - no TUGBOAT OPERATOR GDMT; will start with low dose Toprol XL and Spironolactone, consider l ow dose Losartan after surgery (see table above) -See echocardiogram results above 12/20 - pt may require BUS COMPANY MANAGER-D in outpt setting w/ LBBB on EKG NSTEMI, CAD - pt presented to OSH w/ NSTEMI; had IABP placed initially; transferred to [facility] for further management - 12/07 admit troponin >22.9>18.63>12.99>11.67>4/59>0.64 on 12/12 - CABG x 2 with COFFMAN to LAD and RSVG to OM on 12/16/[address] Webster HLD - 12/08 lipid panel: Cholesterol 215, trigs 358, HDL 30, LDL 141 - no TUGBOAT OPERATOR statins; has failed atorvastatin and rosuvastatin 5 and 10 mg with repo rts of myalgia pain (resolved after stopping) consider trial of pravastatin 5-10 mg daily as lowest side effect profile and titrate up to highest tolerated dose - currently on rosuvastatin 10 mg Q 72 hours and zetia 10 mg daily > managed per primary team DM 2 - 12/07/20 HgbA1c 5.9 - TUGBOAT OPERATOR Janumet XR on hold during admission - Sliding scale Insulin while admitted - pt w/ mod amt neuropathy; takes gabapentin 300 mg 5x/day at home - currently receiving gabapentin 300 mg at noon, 600 mg at 1700, 600 mg qhs > managed per primary team > Plan to initiate SGLT2 inhibitor as outpatient CKD II - admit creatinine 0.71-->0.69>>>>0.72 today (12/21) > daily labs per primary team Post-op Course of Events 12/16 IABP inserted post operatively, removed 12/17 Reason for Consultation: Evaluation and recommendations re: heart failure manag ement post CABG Subjective: Patient reports continued improvement. She is sitting in chair this morning con versing with daughter. She did have positional lightheadedness yesterday when w orking with physical therapy. This resolved quickly. Her appetite is improving . She has mild sternal discomfort. She denies shortness of breath, palpitation , near syncope, lower extremity edema, abdominal distention. Objective: Allergies: Allergies Allergen Reactions Crestor [Rosuvastatin] MUSCLE PAIN Medications: Scheduled Meds:allopurinoL (ZYLOPRIM) tablet 100 mg, 100 mg, Oral, QDAY aspirin chewable tablet 81 mg, 81 mg, Oral, QDAY ezetimibe (ZETIA) tablet 10 mg, 10 mg, Oral, QHS furosemide (LASIX) injection 20 mg, 20 mg, Intravenous, BID(9-17) gabapentin (NEURONTIN) capsule 300 mg, 300 mg, Oral, Q8H heparin (porcine) PF syringe 5,000 Units, 5,000 Units, Subcutaneous, Q8H insulin aspart (U-100) (NOVOLOG FLEXPEN U-100 INSULIN) injection PEN 0-12 Units, 0-12 Units, Subcutaneous, ACHS (22) lidocaine (LIDODERM) 5 % topical patch 1 patch, 1 patch, Topical, QDAY losartan (COZAAR) tablet 12.5 mg, 12.5 mg, Oral, QDAY melatonin tablet 3 mg, 3 mg, Oral, QHS metoprolol tartrate tablet 12.5 mg, 12.5 mg, Oral, BID polyethylene glycol 3350 (MIRALAX) packet 17 g, 1 packet, Oral, BID rosuvastatin (CRESTOR) tablet 10 mg, 10 mg, Oral, Q72H* senna/docusate (SENOKOT-S) tablet 2 tablet, 2 tablet, Oral, BID spironolactone (ALDACTONE) tablet 25 mg, 25 mg, Oral, QDAY Continuous Infusions: PRN and Respiratory Meds:acetaminophen Q6H PRN OR acetaminophen Q6H PRN, alu m/mag hydroxide/simeth Q4H PRN, bisacodyL QDAY PRN, hydrALAZINE Q6H PRN, lidocai ne PF PRN, magnesium sulfate PRN OR magnesium oxide PRN, meclizine TID PRN, milk of magnesia (CONC) QDAY PRN, nalOXone PRN, ondansetron Q6H PRN OR ondan setron (ZOFRAN) IV Q6H PRN, potassium chloride SR PRN OR potassium chloride PRN OR potassium chloride in water PRN, traMADoL Q6H PRN Medications Prior to Admission Medication Sig Dispense Refill Last Dose allopurinoL (ZYLOPRIM) 100 mg tablet Take 100 mg by mouth daily. Take with f ood. Indications: treatment to prevent acute gout attack antiox #8/om3/dha/epa/lut/zeax (PRESERVISION AREDS 2 (OMEGA-3) PO) Take 1 ta blet by mouth daily. atenoloL (TENORMIN) 100 mg tablet Take 100 mg by mouth daily. Indications: h igh blood pressure gabapentin (NEURONTIN) 300 mg capsule Take 300 mg by mouth five times daily. SITagliptin-metformin (JANUMET XR) 100-1,000 mg tablet Take 1 tablet by mout h daily. Indications: type 2 diabetes mellitus Vital Signs: Last Filed Vital Signs: 24 Hour Range BP: 152/79 (12/21 702) Temp: 36.6 C (97.9 F) (12/21 702) Pulse: 89 (12/21 702) Respirations: 18 PER MINUTE (12/21 702) SpO2: 98 % (12/21 702) Height: 157.5 cm (5' 2") (12/20 1104) BP: (106-152)/(55-80) Temp: [36.6 C (97.9 F)-36.8 C (98.3 F)] Pulse: [71-89] Respirations: [16 PER MINUTE-18 PER MINUTE] SpO2: [94 %-98 %] Physical Exam: General Appearance: thin, no distress, sitting in chair beside bed Skin: warm and dry, pale Digits and Nails: no cyanosis or clubbing Neck Veins: JVP ~7-8cm, HJR negative Chest Inspection: sternal incision/dressing C/D/I, chest tube sites with dressin g C/D/I Respiratory Effort: breathing comfortably, no respiratory distress Auscultation/Percussion: lungs clear to auscultation, no rales or rhonchi, no wh eezing Cardiac Rhythm: regular rhythm and normal rate Cardiac Auscultation: S1, S2 not clearly heard no rub, no S3 gallop, no S4 falk p Murmurs: no murmur Pedal Pulses: normal symmetric pedal pulses Lower Extremity Edema: no lower extremity edema Peripheral Circulation: distal upper and lower extremities warm and well-perfuse d Abdominal Exam: soft, non-tender, no masses, bowel sounds normal, Orientation: alert and answering questions appropriately Neurologic Exam: moving all 4 extremities Laboratory Review: CBC w/Diff Lab Results Component Value Date/Time WBC 9.8 12/21/2020 04:40 AM RBC 2.91 (L) 12/21/2020 04:40 AM HGB 9.1 (L) 12/21/2020 04:40 AM HCT 26.9 (L) 12/21/2020 04:40 AM MCV 92.6 12/21/2020 04:40 AM MCH 31.5 12/21/2020 04:40 AM MCHC 34.0 12/21/2020 04:40 AM RDW 14.6 12/21/2020 04:40 AM PLTCT 296 12/21/2020 04:40 AM MPV 7.6 12/21/2020 04:40 AM Lab Results Component Value Date/Time NEUT 55 12/16/2020 05:33 AM ANC 4.50 12/16/2020 05:33 AM LYMA 30 12/16/2020 05:33 AM ALC 2.40 12/16/2020 05:33 AM IMAN 11 12/16/2020 05:33 AM AMC 0.90 (H) 12/16/2020 05:33 AM EOSA 3 12/16/2020 05:33 AM AEC 0.30 12/16/2020 05:33 AM BASA 1 12/16/2020 05:33 AM ABC 0.00 12/16/2020 05:33 AM Chemistry Lab Results Component Value Date/Time NA 140 12/21/2020 04:40 AM K 4.3 12/21/2020 04:40 AM CL 105 12/21/2020 04:40 AM CO2 24 12/21/2020 04:40 AM GAP 11 12/21/2020 04:40 AM BUN 32 (H) 12/21/2020 04:40 AM CR 0.72 12/21/2020 04:40 AM GLU 138 (H) 12/21/2020 04:40 AM Lab Results Component Value Date/Time CA 8.8 12/21/2020 04:40 AM ALBUMIN 3.8 12/16/2020 05:33 AM TOTPROT 6.8 12/16/2020 05:33 AM ALKPHOS 62 12/16/2020 05:33 AM AST 21 12/16/2020 05:33 AM ALT 14 12/16/2020 05:33 AM TOTBILI 0.8 12/16/2020 05:33 AM GFR >60 12/21/2020 04:40 AM GFRAA >60 12/21/2020 04:40 AM Renal Function Lab Results Component Value Date/Time NA 140 12/21/2020 04:40 AM K 4.3 12/21/2020 04:40 AM CL 105 12/21/2020 04:40 AM CO2 24 12/21/2020 04:40 AM GAP 11 12/21/2020 04:40 AM BUN 32 (H) 12/21/2020 04:40 AM BUN 44 (H) 12/20/2020 05:05 AM BUN 29 (H) 12/19/2020 03:03 AM Lab Results Component Value Date/Time CR 0.72 12/21/2020 04:40 AM CR 0.95 12/20/2020 05:05 AM CR 0.86 12/19/2020 03:03 AM GLU 138 (H) 12/21/2020 04:40 AM CA 8.8 12/21/2020 04:40 AM ALBUMIN 3.8 12/16/2020 05:33 AM Lipid Profile INR Lab Results Component Value Date CHOL 215 (H) 12/08/2020 TRIG 358 (H) 12/08/2020 HDL 30 (L) 12/08/2020 LDL 141 (H) 12/08/2020 VLDL 72 12/08/2020 NONHDLCHOL 185 12/08/2020 Lab Results Component Value Date INR 1.2 12/16/2020 Chest X-Ray: 12/21 Persistent mild cardiomegaly and pulmonary edema. Slight increase in left basilar consolidation, likely a combination of atelectasis and effusion. Similar small right pleural effusion with slight increase in right basilar atelectasis. Tele/ECG: SR w/ BBB, 70s-80s Echocardiogram Details: Echo Results (Last 3 results in the past 3 years) Echo EF LVIDD LA Size IVS LVPW Rest PAP (12/20/20) 25 (12/13/20) 6.11 (12/13/20) 3.83 (12/13/20) 0.92 (12/13/20) 0.99 (12/10/20) 34 (12/13/20) 30 (12/10/20) 5.50 (12/10/20) 3.70 (12/10/20) 1.10 (12/10/20) 0.80 (12/10/20) 30 TRISTEN Gonzalez * Robert Peters RN - 12/21/2020 5:20 AM CDT VSS. A&Ox4. Tolerating RA. SR c BBB on tele. No complaints of pain overnight. 1 small BM overnight. Voiding adequately. Surgical incisions and dressings C/D/I. EC ventricle wires intact. * Tina Campos RN - 12/20/2020 6:45 PM CDT SR/BBB on tele. A/Ox4. Frequently sleepy. Cont weak. Has ambulated in hallway x2 and up in room for short distances to BR . Frequently coached on sternal precautions with activity. UOP adequate but inaccurate due to missing hat. Loose BM x2. Poor appetite, boost supplement provided. Denies pain. Cont to monitor, encourage activity. * Lorie Culp RT - 12/20/2020 5:58 PM CDT RT Adult Assessment Note NAME:Carli Koroma :1945 AGE: 75 y.o. ADMISSION DATE: 12/07/2020 DAYS ADMITTED: LOS: 13 days RT Treatment Plan: Protocol Plan: Procedures PEP Therapy: Q4h while awake & PRN PAP: Q4h while awake & PRN Oxygen/Humidity: Discontinued SpO2: Discontinued Comment: IS with RN Additional Comments: Impressions of the patient: Patient resting comfortably on room air. Intervention(s)/outcome(s): See above Patient education that was completed: N/A Recommendations to the care team: See above Vital Signs: Pulse: 88 RR: 16 PER MINUTE SpO2: 97 % O2 Device: Liter Flow: O2%: Breath Sounds: Respiratory Effort: Non-Labored * Dario Webster MD - 12/20/2020 5:15 PM CDT Feeling well, but weak. Will need intensive rehab. Diuresis as able. Appreciate HF team input. Will do TTE today to assess function, volume status. * Sumi Bae, PT - 12/20/2020 1:29 PM CDT PHYSICAL THERAPY NOTE Name: Carli Koroma : 1945 Age: [age] y.o. Admission Date: 12/07/2020 LOS: 13 days Patient off the unit for echo. Physical therapy will continue to follow and prov kalina intervention as indicated. Therapist: Sumi Bae, PT, DPT Date: 12/20/2020 * aNn Moffett, OT - 12/20/2020 12:19 PM CDT OCCUPATIONAL THERAPY NOTE Name: Carli Koroma : 1945 Age: [age] y.o. Admission Date: 12/07/2020 LOS: 13 days Attempted to see pt in for OT evaluation. Pt requests OT return at a later time as she is eating lunch and just recently worked with cardiac rehab. In afternoon, pt off unit for echo. Will f/u as able/appropriate. Therapist: Nan Moffett OTR/L [id number] Date: 12/20/2020 * Julio César Chisholm - 12/20/2020 11:56 AM CDT 12/20/20 1104 Risk Factors BP 106/55 Education Person Instructed Patient;Family Patient Barriers To Learning None Noted Interventions/Teaching Methods Verbal Instructions;Written Materials Provided Patient Response Verbalized Understanding Topics Wound Care;Sternal and Upperbody restrictions for OHS;Reasons to call you r doctor;Risk Factor Management - Blood Pressure;Risk Factor Management - Physic al Inactivity;Home Walking Guidelines;Outpatient Cardiac Rehab Referral Informat ion Teaching Completed 12/20/20 Heart Resource Manual Given 12/20/20 Comments Pt received CR and discharge teaching. Discussed participating in an ou tpatient cardiac rehab program. Pt interested and agreed to having information f axed over to [facility] in [place], [place] Outpatient Cardiopulmonary Rehab OPCR Yes Location [place], [place] ([facility] ([phone])) Date Faxed 12/20/20 * Julio César Chisholm - 12/20/2020 11:52 AM CDT 12/20/20 1120 Cardiac Rehab Activity Distance Walked (feet) 20 ft BP Pre-activity 118/54 BP Post-activity 128/53 HR Pre-activity 72 bpm HR Post-activity 77 SaO2 Pre-activity 97 % SaO2 Post-activity 99 O2 Device None (Room Air) Comments Pt tolerated 20 ft of ambulation with x1 assist and rolling walker. Pt requested to stop due to fatigue and was returned to her room/bed with call ernie tracy within reach. Mobility Progressive Mobility Level 7 Level of Assistance Assist X1 Assistive Device Walker Time Tolerated 0-10 minutes Activity Limited By Fatigue;Weakness * Rosalind Chaparro MD - 12/20/2020 10:16 AM CDT Heart Failure Progress Note Date of Service: 12/20/2020 Carli Koroma is a 75 y.o. y.o. female. 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 female who initially presented to outside hospital in [place], [place] on 12/06/20 reporting chief complaint of chest pain, shortness of b reath, nausea with diaphoresis. She was found to have elevated troponin with NST BONY; went to clinical laboratory technician for IABP placement. Her IABP was placed to [facility] and develop ed a leak; therefore it was discontinued to prior to her transfer to [facility]. She was also found to have elevated BNP of 927 with HFrEF (30%) on echocardiogram. P ast medical history includes HTN, HLD, DM 2, CKD II, neuropathy. She underwent two vessel CABG (with COFFMAN to LAD and RSVG to OM ) by Dr Webster on 12/16/20. Recommendations/Plan: 1. Inotrope/Vasopressor therapy: wean milrinone off this morning 2. Diuretic therapy: one more dose of IV lasix this afternoon, then transition t o PO tomorrow 3. Critical Care Medications per CTS and Critical Care Team/Anesthesiology. 4. Temporary pacing wires VVI 60 - important to maintain integrity of temp pacin g wires 5. Continue spironolactone 25mg Qd 6. Continue metoprolol tart 12.5mg BID 7. Add Losartan 12.5mg starting tomorrow morning 8. TTE pending At Discharge: 1. Baseline echo to be completed prior to discharge (pending) 2. Follow Up: appointment with a member of the HF team within 7 calendar days of discharge. 3. Cardiac Rehab Pt seen and examined with Dr. Parker. Rosalind Chaparro MD Available on Voalte Assessment: Acute on chronic systolic HFrEF, EF: 30%. Major Complications or Comorbidities (LONGTERM): acute/ acute on chronic systolic and /or diastolic heart failure NYHA functional class III (marked limitation of physical activity - comfortable at rest, but less than ordinary activity causes symptoms of HF e.g., getting mariano ssed or standing from a sitting position), ACC Stage C (structural heart disease with prior or current symptoms of HF). She presents with signs of hypervolemia with left ventricular failure without s igns of low flow state. Admission BNP: 927 on 12/06 (OSH) Prior to admission diuretic regimen: None Intake/Output I/O last 24 hours: +365L I/O entire stay: +1.5L Urine output/24 hours: 285L Goal Dry Weight: ~128 lbs Guideline Based Heart Failure Therapies: GDMT TUGBOAT OPERATOR Changes BB Atenolol 100 mg po daily Metoprolol 25 mg in AM, 12.5 mg in PM 12/11 Toprol XL 25 mg qhs 12/16 held post op ACEI/ARB/ARNI Previously on Irbesartan *will consider low dose Losartan after s urgery SGLT-2 Inhibitor N/A *consider initiating in outpt setting Aldosterone Antagonist N/A 12/11 Starting Spironolactone 12.5 mg daily 12/13 increase suleman to 25 mg daily 12/16 held post op Hydralazine/Nitrate N/A Ivabradine N/A HRMT N/A *pt may benefit from BUS COMPANY MANAGER-D if EF does not improve with GDMT Anticoagulation for Afib/flutter N/A Cardiac Rehab Evaluation for LVEF <40% Will plan for upon discharge Diuretic Therapy Prior to admission dose N/A Given on admission 12/07 IV lasix 40 mg x1 Daily Dosing 12/08-12/15 Lasix 20 mg po daily 12/16 held post op Cardiomyopathy - likely secondary to ischemic etiology after recent [facility] - no TUGBOAT OPERATOR GDMT; will start with low dose Toprol XL and Spironolactone, consider l ow dose Losartan after surgery - pt may require BUS COMPANY MANAGER-D in outpt setting w/ LBBB on EKG NSTEMI, CAD - pt presented to OSH w/ NSTEMI; had IABP placed initially; transferred to [facility] for further management - 12/07 admit troponin >22.9>18.63>12.99>11.67>4/59>0.64 on 12/12 - CABG x 2 with COFFMAN to LAD and RSVG to OM on 12/16/[address] Jorge LÓPEZ - 12/08 lipid panel: Cholesterol 215, trigs 358, HDL 30, LDL 141 - no TUGBOAT OPERATOR statins; has failed atorvastatin and rosuvastatin 5 and 10 mg with repo rts of myalgia pain (resolved after stopping) consider trial of pravastatin 5-10 mg daily as lowest side effect profile and titrate up to highest tolerated dose - currently on rosuvastatin 10 mg Q 72 hours and zetia 10 mg daily > managed per primary team DM 2 - 12/07/20 HgbA1c 5.9 - TUGBOAT OPERATOR Janumet XR on hold during admission - Sliding scale Insulin while admitted - pt w/ mod amt neuropathy; takes gabapentin 300 mg 5x/day at home - currently receiving gabapentin 300 mg at noon, 600 mg at 1700, 600 mg qhs > managed per primary team CKD II - admit creatinine 0.71-->0.69 today (12/15) > daily labs per primary team Post-op Course of Events 12/16 IABP inserted post operatively, removed 12/17 Reason for Consultation: Evaluation and recommendations re: heart failure manag ement post CABG Subjective: Patient reports continued improvement, mood cheerful this morning. She is sittin g up in bed with family in the room. Participating in physical therapy. History of Present Illness: Carli Koroma is a 75 y.o. female who initially pres ented to outside hospital in [place], [place] on 12/06/20 reporting chief complaint o f chest pain, shortness of breath, nausea with diaphoresis. She was found to hav e elevated troponin with NSTEMI; went to clinical laboratory technician for IABP placement. Her IABP w as placed to SFA and developed a leak; therefore it was discontinued to prior to her transfer to [facility]. She underwent two vessel CABG (with COFFMAN to LAD and RSVG to OM ) by Dr Webster on 12/16/20. Objective: Allergies: Allergies Allergen Reactions Crestor [Rosuvastatin] MUSCLE PAIN Medications: Scheduled Meds:acetaminophen (TYLENOL EXTRA STRENGTH) tablet 1,000 mg, 1,000 mg, Oral, Q6H while awake allopurinoL (ZYLOPRIM) tablet 100 mg, 100 mg, Oral, QDAY aspirin chewable tablet 81 mg, 81 mg, Oral, QDAY ezetimibe (ZETIA) tablet 10 mg, 10 mg, Oral, QHS furosemide (LASIX) injection 20 mg, 20 mg, Intravenous, BID(9-17) gabapentin (NEURONTIN) capsule 300 mg, 300 mg, Oral, Q8H heparin (porcine) PF syringe 5,000 Units, 5,000 Units, Subcutaneous, Q8H insulin aspart (U-100) (NOVOLOG FLEXPEN U-100 INSULIN) injection PEN 0-12 Units, 0-12 Units, Subcutaneous, ACHS (22) lidocaine (LIDODERM) 5 % topical patch 1 patch, 1 patch, Topical, QDAY melatonin tablet 3 mg, 3 mg, Oral, QHS metoprolol tartrate tablet 12.5 mg, 12.5 mg, Oral, BID polyethylene glycol 3350 (MIRALAX) packet 17 g, 1 packet, Oral, BID rosuvastatin (CRESTOR) tablet 10 mg, 10 mg, Oral, Q72H* senna/docusate (SENOKOT-S) tablet 2 tablet, 2 tablet, Oral, BID spironolactone (ALDACTONE) tablet 25 mg, 25 mg, Oral, QDAY Continuous Infusions: milrinone (PRIMACOR) 20 mg/D5W 100 mL infusion 0.125 mcg/kg/min (12/19/20 16 00) PRN and Respiratory Meds:[START ON 12/21/2020] acetaminophen Q6H PRN OR [STAR T ON 12/21/2020] acetaminophen Q6H PRN, alum/mag hydroxide/simeth Q4H PRN, bisaco dyL QDAY PRN, hydrALAZINE Q6H PRN, lidocaine PF PRN, magnesium sulfate PRN OR* * magnesium oxide PRN, meclizine TID PRN, milk of magnesia (CONC) QDAY PRN, nalO Xone PRN, ondansetron Q6H PRN OR ondansetron (ZOFRAN) IV Q6H PRN, potassium chloride SR PRN OR potassium chloride PRN OR potassium chloride in water PRN, traMADoL Q6H PRN Medications Prior to Admission Medication Sig Dispense Refill Last Dose allopurinoL (ZYLOPRIM) 100 mg tablet Take 100 mg by mouth daily. Take with f ood. Indications: treatment to prevent acute gout attack antiox #8/om3/dha/epa/lut/zeax (PRESERVISION AREDS 2 (OMEGA-3) PO) Take 1 ta blet by mouth daily. atenoloL (TENORMIN) 100 mg tablet Take 100 mg by mouth daily. Indications: h igh blood pressure gabapentin (NEURONTIN) 300 mg capsule Take 300 mg by mouth five times daily. SITagliptin-metformin (JANUMET XR) 100-1,000 mg tablet Take 1 tablet by mout h daily. Indications: type 2 diabetes mellitus Vital Signs: Last Filed Vital Signs: 24 Hour Range BP: 147/69 (12/21 811) Temp: 36.7 C (98.1 F) (12/20 08) Pulse: 82 (12/20 0929) Respirations: 16 PER MINUTE (12/20 08) SpO2: 96 % (12/21 811) SpO2 Pulse: 80 (12/19 1600) BP: (99-147)/(54-70) ABP: (134-151)/(51-57) Temp: [36.7 C (98 F)-36.8 C (98.3 F)] Pulse: [74-84] Respirations: [16 PER MINUTE-21 PER MINUTE] SpO2: [94 %-99 %] Intensity Pain Scale (Self Report): 6 (12/19/20 1553) Hemodynamics: CO 2.8 CI 1.77 CVP 10 PAP /18 mean 21 SvO2 53% Physical Exam: General Appearance: thin, no distress, sitting in chair beside bed Skin: warm and dry, pale Digits and Nails: no cyanosis or clubbing Neck Veins: JVP ~7-8cm, HJR positive Chest Inspection: sternal incision/dressing C/D/I, chest tube sites with dressin g C/D/I Respiratory Effort: breathing comfortably, no respiratory distress Auscultation/Percussion: lungs clear to auscultation, no rales or rhonchi, no wh eezing Cardiac Rhythm: regular rhythm and normal rate Cardiac Auscultation: S1, S2 not clearly heard no rub, no S3 gallop, no S4 falk p Murmurs: no murmur Pedal Pulses: normal symmetric pedal pulses Lower Extremity Edema: no lower extremity edema Peripheral Circulation: distal upper and lower extremities warm and well-perfuse d Abdominal Exam: soft, non-tender, no masses, bowel sounds normal, Orientation: alert and answering questions appropriately Neurologic Exam: moving all 4 extremities Laboratory Review: CBC w/Diff Lab Results Component Value Date/Time WBC 11.8 (H) 12/20/2020 05:05 AM RBC 2.73 (L) 12/20/2020 05:05 AM HGB 8.6 (L) 12/20/2020 05:05 AM HCT 25.5 (L) 12/20/2020 05:05 AM MCV 93.7 12/20/2020 05:05 AM MCH 31.6 12/20/2020 05:05 AM MCHC 33.7 12/20/2020 05:05 AM RDW 14.9 12/20/2020 05:05 AM PLTCT 239 12/20/2020 05:05 AM MPV 8.0 12/20/2020 05:05 AM Lab Results Component Value Date/Time NEUT 55 12/16/2020 05:33 AM ANC 4.50 12/16/2020 05:33 AM LYMA 30 12/16/2020 05:33 AM ALC 2.40 12/16/2020 05:33 AM IMAN 11 12/16/2020 05:33 AM AMC 0.90 (H) 12/16/2020 05:33 AM EOSA 3 12/16/2020 05:33 AM AEC 0.30 12/16/2020 05:33 AM BASA 1 12/16/2020 05:33 AM ABC 0.00 12/16/2020 05:33 AM Chemistry Lab Results Component Value Date/Time NA 141 12/20/2020 05:05 AM K 4.1 12/20/2020 05:05 AM CL 107 12/20/2020 05:05 AM CO2 24 12/20/2020 05:05 AM GAP 10 12/20/2020 05:05 AM BUN 44 (H) 12/20/2020 05:05 AM CR 0.95 12/20/2020 05:05 AM GLU 142 (H) 12/20/2020 05:05 AM Lab Results Component Value Date/Time CA 8.8 12/20/2020 05:05 AM ALBUMIN 3.8 12/16/2020 05:33 AM TOTPROT 6.8 12/16/2020 05:33 AM ALKPHOS 62 12/16/2020 05:33 AM AST 21 12/16/2020 05:33 AM ALT 14 12/16/2020 05:33 AM TOTBILI 0.8 12/16/2020 05:33 AM GFR 58 (L) 12/20/2020 05:05 AM GFRAA >60 12/20/2020 05:05 AM Renal Function Lab Results Component Value Date/Time NA 141 12/20/2020 05:05 AM K 4.1 12/20/2020 05:05 AM CL 107 12/20/2020 05:05 AM CO2 24 12/20/2020 05:05 AM GAP 10 12/20/2020 05:05 AM BUN 44 (H) 12/20/2020 05:05 AM BUN 29 (H) 12/19/2020 03:03 AM BUN 16 12/18/2020 02:56 AM Lab Results Component Value Date/Time CR 0.95 12/20/2020 05:05 AM CR 0.86 12/19/2020 03:03 AM CR 0.68 12/18/2020 02:56 AM GLU 142 (H) 12/20/2020 05:05 AM CA 8.8 12/20/2020 05:05 AM ALBUMIN 3.8 12/16/2020 05:33 AM Lipid Profile INR Lab Results Component Value Date CHOL 215 (H) 12/08/2020 TRIG 358 (H) 12/08/2020 HDL 30 (L) 12/08/2020 LDL 141 (H) 12/08/2020 VLDL 72 12/08/2020 NONHDLCHOL 185 12/08/2020 Lab Results Component Value Date INR 1.2 12/16/2020 Chest X-Ray: 1. Mild bibasilar opacities, likely atelectasis. 2. Interval decrease in pulmonary edema. Tele/ECG: No alarms Echocardiogram Details: Echo Results (Last 3 results in the past 3 years) Echo EF LVIDD LA Size IVS LVPW Rest PAP (12/13/20) 30 (12/13/20) 6.11 (12/13/20) 3.83 (12/13/20) 0.92 (12/13/20) 0.99 (12/10/20) 34 (12/10/20) 30 (12/10/20) 5.50 (12/10/20) 3.70 (12/10/20) 1.10 (12/10/20) 0.80 Rosalind Chaparro MD * Elver Puga MD - 12/20/2020 9:10 AM CDT Daily Progress Note Today's Date: 12/20/2020 Name: Crali Koroma Admission Date: 12/07/2020 (LOS: 13 days) Assessment: Carli Koroma is a 75 y.o. female with recent CABG (12/17/2011) w/ IA BP removal 12/17 c/b popliteal thrombus who is now 3 Days Post-Op from a poplitea l thrombectomy (12/17/2020) with Dr. Salinas. 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 Pain is controlled. Resting comfortably in bed. No co ncerns today. Objective: BP: (99-147)/(54-70) ABP: (109-151)/(42-57) Temp: [36.7 C (98 F)-36.8 C (98.3 F)] Pulse: [73-84] Respirations: [16 PER MINUTE-21 PER MINUTE] SpO2: [94 %-99 %] Body mass index is 24.8 kg/m. BMI Category: Acceptable (19 to <25) Lab Results Component Value Date/Time HGB 8.6 (L) 12/20/2020 05:05 AM HCT 25.5 (L) 12/20/2020 05:05 AM WBC 11.8 (H) 12/20/2020 05:05 AM PLTCT 239 12/20/2020 05:05 AM INR 1.2 12/16/2020 12:30 PM Lab Results Component Value Date/Time NA 141 12/20/2020 05:05 AM K 4.1 12/20/2020 05:05 AM CL 107 12/20/2020 05:05 AM CO2 24 12/20/2020 05:05 AM BUN 44 (H) 12/20/2020 05:05 AM CR 0.95 12/20/2020 05:05 AM MG 2.6 12/20/2020 05:05 AM CA 8.8 12/20/2020 05:05 AM Lab Results Component Value Date/Time GLUPOC 152 (H) 12/20/2020 08:12 AM GLUPOC 188 (H) 12/19/2020 09:50 PM GLUPOC 240 (H) 12/19/2020 05:14 PM Physical Exam Constitutional: She is oriented to person, place, and time. She appears well-dev eloped and well-nourished. No distress. HENT: Head: Normocephalic and atraumatic. Cardiovascular: Normal rate and intact distal pulses. Pulses: Radial pulses are 2+ on the right side and 2+ on the left side. Dorsalis pedis pulses are 2+ on the right side and 2+ on the left side. Pulmonary/Chest: Effort normal. No respiratory distress. Abdominal: Soft. She exhibits no distension. There is no abdominal tenderness. Musculoskeletal: General: Normal range of motion. Comments: R groin with significant ecchymosis Medial right lower extremity incision immediately distal to the knee well approx imated with no drainage or erythema. Neurological: She is alert and oriented to person, place, and time. Skin: Skin is warm and dry. Psychiatric: She has a normal mood and affect. Her behavior is normal. Judgment and thought content normal. Malnutrition Details: Active Wounds Wounds 12/16/20828 Surgical Incision Mid Sternum (Active) 07/12/21 0829 Sternum Wound Type: Surgical Incision Pressure Injury Stages: Pressure Injury Present On Inpatient Admission: Wound/Pressure Injury Orientation: Mid Wound Description (Comments): Wound Type:: Agree With My Assessment? Yes 12/20/20345 Wound Dressing Status Intact 12/19/202029 Wound Dressing and / or Treatment Silverlon 12/19/202029 Wound Drainage Amount None 12/19/202029 Wound Base Assessment Dressing intact, base not assessed 12/19/202029 Surrounding Skin Assessment Dry;Intact 12/19/202029 Wound Site Closure Wound Adhesive Bandage 12/19/202029 Number of days: 4 Wounds 12/16/20 0829 Surgical Incision (Active) 12/16/20 0829 Wound Type: Surgical Incision Pressure Injury Stages: Pressure Injury Present On Inpatient Admission: Wound/Pressure Injury Orientation: Wound Description (Comments): Wound Type:: Agree With My Assessment? Yes 12/20/20345 Wound Dressing Status Open to air 12/19/202029 Wound Dressing and / or Treatment Silverlon 12/17/20 08 Wound Securement / Protective Device Rina wrap 12/17/20 08 Wound Drainage Amount None 12/19/202029 Wound Base Assessment Clean;Dry;Intact 12/19/202029 Surrounding Skin Assessment Dry;Intact 12/19/202029 Wound Site Closure Approximated 12/19/202029 Number of days: 4 Wounds 12/16/20 0848 Surgical Incision Inner;Upper;Left Leg (Active) 12/16/20 0848 Leg Wound Type: Surgical Incision Pressure Injury Stages: Pressure Injury Present On Inpatient Admission: Wound/Pressure Injury Orientation: Inner;Upper;Left Wound Description (Comments): Wound Type:: Agree With My Assessment? Yes 12/20/20345 Wound Dressing Status Open to air 12/19/202029 Wound Securement / Protective Device Rina wrap 12/17/20 0800 Wound Drainage Amount None 12/19/202029 Wound Base Assessment Clean;Dry;Intact 12/19/202029 Surrounding Skin Assessment Dry;Intact 12/19/202029 Wound Site Closure Approximated 12/19/202029 Number of days: 4 Wounds 12/17/20 1333 Surgical Incision Right;Medial (Active) 12/17/20 1333 Wound Type: Surgical Incision Pressure Injury Stages: Pressure Injury Present On Inpatient Admission: Wound/Pressure Injury Orientation: Right;Medial Wound Description (Comments): Wound Type:: Agree With My Assessment? Yes 12/20/20345 Wound Dressing Status Intact 12/19/202029 Wound Dressing and / or Treatment Primapore 12/19/202029 Wound Drainage Amount None 12/19/202029 Wound Base Assessment Dressing intact, base not assessed 12/19/202029 Surrounding Skin Assessment Dry;Intact 12/19/202029 Wound Site Closure Wound Adhesive Bandage 12/19/202029 Number of days: 3 Wounds 12/19/201927 Pressure Injury Mid Sacrum (Active) 12/19/201927 Sacrum Wound Type: Pressure Injury Pressure Injury Stages: Stage 1 Pressure Injury Present On Inpatient Admission: Wound/Pressure Injury Orientation: Mid Wound Description (Comments): Wound Type:: Agree With My Assessment? Yes 12/20/20345 Wound Dressing Status Intact 12/19/201927 Wound Drainage Amount None 12/19/201927 Wound Base Assessment Red;Non-blanchable 12/19/201927 Surrounding Skin Assessment Dry;Intact 12/19/201927 Wound Site Closure Wound Adhesive Bandage 12/19/201927 Number of days: 1 Elver Puga MD Service Pager: # [phone] Associated attestation - Edouard Guallpa MD - 12/20/2020 9:13 AM CDT Seen and examined with resident staff Pop incision c/d/I no hematoma Palpable DP pulse Compartments soft, non-tender Normal sensation / motor function in foot Doing well Continue care per primary team * Tina Patiño PA-C - 12/20/2020 6:50 AM CDT Cardiothoracic Surgery Progress Note Carli Koroma Today's Date: 12/20/2020 Admission Date: 12/07/2020 LOS: 13 days 12/16/2020 Procedures: 1. CABG x 2 with COFFMAN to LAD and SV to OM1 (CPT 87692, 42599) 2. Endoscopic Vein [place] (CPT 27456) 3. Right femoral arterial intraaortic balloon pump placement 4. Transesophageal echocardiography 12/17/2020 Procedures: Thrombus involving the popliteal and anterior tibial arteries. Thrombectomy perf ormed with 3Fr Kasia balloon with return of distal pulses. 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 Had low UOP yesterday, will need to monitor closely today. Assessment/Plan: Neuro Alert and oriented, pain controlled. Possibly some delirium overnight. Add melatonin. No seroquel for now d/t prolonged QTc. Holding narcotics. Contin ue scheduled APAP with PRN low dose tramadol. Cont Gabapentin 300 mg Q8H. 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 CV SR with BBB rate 70-80's. V wires capped. SBP 100-140s. IABP pulled 12/17. Epi weaned off 12/18, Milrinone @ .125, will turn off today. Cont metoprolol 12. 5mg BID, bASA, and statin q 72 hrs. Start Spironolactone 25 QD today and [place] n 12.5 QD tomorrow per HF recs. 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 Intra op AIDAN LVEF 20%; post-op LVEF 25-30%. Heart Failure Team on consult. Will repeat TTE today. Vascular: s/p R popliteal thrombectomy for acute thrombus following IABP removal 12/17. Pedal pulses restored and pulses now easily palpable. No need for AC per vascular surgery. Appreciate vascular surgery assistance. Resp Daily CXR L pleural effusion, mild pulmonary vascular congestion. 1 L NC, wean O2. Cont IS, aggressive pulm toilet. Renal Baseline sCr. 0.83. Scr today 0.95. Continue scheduled lasix 20 mg IV BID for volume overload. Transition to oral Lasix tomorrow. UOP 285cc/24hrs, co ntinue to monitor. Weight down 1kg from admit, but Net +1.4L for admission. GI - ADAT, continue post op bowel regimen. LBM 12/19. ID Afebrile. Wbc 11.8. Heme Hgb 8.6, platelets 239. Continue foot pumps for DVT prophylaxis, SQ Hep princess. FEN replace Mg and K to minimize the risk of cardiac arrhythmias. Hgb A1C 5. 9%, [facility]. Activity Pt up to chair today, should ambulate in halls with nursing and car diac rehab TID. Rehab consult ordered. Disposition: Rehab consult today for discharge planning. Increase activity wit h PT/OT as able. Wean O2. Wean Milrinone off today and repeat TTE. Monitor UOP. Start Losartan tomorrow per HF recs. Prophylaxis Review: Lines: No Antibiotic Usage: No VTE: Pharmacological prophylaxis; SQ Heparin and Mechanical prophylaxis; Foot p ump Urinary Catheter: No Tina Patiño PA-C Pager [phone] 12/20/2020 Subjective: HPI: Carli Koroma is a 75 y.o. female who initially presented to outside hospit al in [place], [place] on 12/06/20 reporting chief complaint of chest pain, shortness of breath, nausea with diaphoresis. She was found to have elevated troponin with NSTEMI; went to clinical laboratory technician for IABP placement. Her IABP was placed to SFA and de veloped a leak; therefore it was discontinued to prior to her transfer to [facility]. She was also found to have elevated BNP of927 with HFrEF (30%) on echocardiog erika. Past medical history includes HTN, HLD, DM 2, CKD II, neuropathy.She is n ow s/p CABG x [address] Webster on 12/16/20. 12/17: R IABP removal. Acute popliteal thrombus s/p thrombectomy with vascular burns rgery. Epi 0.06, milrinone 0.25. Work towards extubation. 12/18: epi @ 0.03 mcg/kg/min (slow wean to off), lasix 20 mg IV BID, d/c mediasti nal CTs, [facility] 12/19: Milrinone 0.125mcg/kg/min, pull CTs, cont scheduled diuretics, re-engage H eart Failure REVIEW OF SYSTEMS: Review of Systems Constitutional: Positive for malaise/fatigue. Negative for fever. Eyes: Negative for blurred vision and double vision. Respiratory: Positive for cough and sputum production. Negative for hemoptysis a nd shortness of breath. Cardiovascular: Negative for chest pain, palpitations and leg swelling. Gastrointestinal: Negative for abdominal pain, nausea and vomiting. Musculoskeletal: Negative for falls. Neurological: Negative for dizziness, focal weakness, weakness and headaches. Psychiatric/Behavioral: The patient is not nervous/anxious. Objective: Medications: Scheduled Meds:acetaminophen (TYLENOL EXTRA STRENGTH) tablet 1,000 mg, 1,000 mg, Oral, Q6H while awake allopurinoL (ZYLOPRIM) tablet 100 mg, 100 mg, Oral, QDAY amiodarone (CORDARONE) tablet 400 mg, 400 mg, Oral, BID aspirin chewable tablet 81 mg, 81 mg, Oral, QDAY ezetimibe (ZETIA) tablet 10 mg, 10 mg, Oral, QHS furosemide (LASIX) injection 20 mg, 20 mg, Intravenous, BID(02-21) gabapentin (NEURONTIN) capsule 300 mg, 300 mg, Oral, Q8H heparin (porcine) PF syringe 5,000 Units, 5,000 Units, Subcutaneous, Q8H insulin aspart (U-100) (NOVOLOG FLEXPEN U-100 INSULIN) injection PEN 0-12 Units, 0-12 Units, Subcutaneous, ACHS (22) lidocaine (LIDODERM) 5 % topical patch 1 patch, 1 patch, Topical, QDAY melatonin tablet 3 mg, 3 mg, Oral, QHS metoprolol tartrate tablet 12.5 mg, 12.5 mg, Oral, BID polyethylene glycol 3350 (MIRALAX) packet 17 g, 1 packet, Oral, BID rosuvastatin (CRESTOR) tablet 10 mg, 10 mg, Oral, Q72H* senna/docusate (SENOKOT-S) tablet 2 tablet, 2 tablet, Oral, BID spironolactone (ALDACTONE) tablet 25 mg, 25 mg, Oral, QDAY Continuous Infusions: milrinone (PRIMACOR) 20 mg/D5W 100 mL infusion 0.125 mcg/kg/min (12/19/20) PRN and Respiratory Meds:[START ON 12/21/2020] acetaminophen Q6H PRN OR [STAR T ON 12/21/2020] acetaminophen Q6H PRN, alum/mag hydroxide/simeth Q4H PRN, bisaco dyL QDAY PRN, hydrALAZINE Q6H PRN, lidocaine PF PRN, magnesium sulfate PRN OR* * magnesium oxide PRN, meclizine TID PRN, milk of magnesia (CONC) QDAY PRN, nalO Xone PRN, ondansetron Q6H PRN OR ondansetron (ZOFRAN) IV Q6H PRN, potassium chloride SR PRN OR potassium chloride PRN OR potassium chloride in water PRN, traMADoL Q6H PRN Vital Signs: Last Filed Vital Signs: 24 Hour Ra nge BP: 125/56 (12/20 040) Temp: 36.7 C (98 F) (12/20 040) Pulse: 74 (12/20 040) Respirations: 16 PER MINUTE (12/20 040) SpO2: 96 % (12/20 040) SpO2 Pulse: 80 (12/19 1600) BP: (99-143)/(54-70) ABP: (109-151)/(42-67) Temp: [36.5 C (97.7 F)-36.8 C (98.3 F)] Pulse: [73-90] Respirations: [16 PER MINUTE-21 PER MINUTE] SpO2: [94 %-99 %] Intensity Pain Scale (Self Report): 6 (12/19/20 1553) Vitals: 12/17/20 0500 12/19/20 0500 12/20/20 0400 Weight: 56.7 kg (125 lb) 62.3 kg (137 lb 6.4 oz) 61.5 kg (135 lb 9.6 oz) Intake/Output Summary: (Last 24 hours) Intake/Output Summary (Last 24 hours) at 12/20/2020 0731 Last data filed at 12/19/2020 1900 Gross per 24 hour Intake 353.75 ml Output 365 ml Net -11.25 ml Physical Exam: Neuro: A&Ox4 Cardiovascular: RRR no rub or murmur Respiratory: diminished bases GI: soft, NT, active BS Extremities: trace BLE edema, peripheral pulses palpable, R groin bruising - no hematoma, R thigh bruising (old) Incisions: Sternal incision dressing, dry and intact. No crepitus or sternal ins tability. RLE incision dressing in place Chest Tubes OUTPUT/24 HOURS AIR LEAK PRESENT 24+32 fr 140 ml no Pertinent Meds: Taking Reason for Not Taking 1. Aspirin yes 2. B-Doug yes 3. Statin yes 4. RINA/ARB Ejection fraction>40 Artificial airway: None Vent weaning trial: Not applicable LABS: Recent Labs 12/17/20 1550 12/18/20 0256 12/19/20 0303 12/20/20 0505 NA 145 141 142 141 K 4.7 4.7 4.5 4.1 CL 114* 110 108 107 CO2 24 GAP 9 10 13* 10 BUN 13 16 29* 44* CR 0.70 0.68 0.86 0.95 GLU 139* 131* 173* 142* CA 8.6 8.5 8.7 8.8 MG -- 2.4 2.4 2.6 Recent Labs 12/17/20 1550 12/18/20 0256 12/19/20 0303 12/20/20 0505 WBC 15.1* 17.0* 15.5* 11.8* HGB 8.0* 7.7* 7.4* 8.6* HCT 24.2* 22.2* 22.5* 25.5* PLTCT 157 150 177 239 Estimated Creatinine Clearance: 44.9 mL/min (based on SCr of 0.95 mg/dL). Vitals: 12/17/20 0500 12/19/20 0500 12/20/20 0400 Weight: 56.7 kg (125 lb) 62.3 kg (137 lb 6.4 oz) 61.5 kg (135 lb 9.6 oz) Recent Labs 12/17/20 1740 12/17/20 1846 PHART 7.37 7.38 PO2ART 141* 131* Radiology and Other Diagnostic Procedures Review: Reviewed * Robert Peters RN - 12/20/2020 6:27 AM CDT VSS. A&Ox4. Tolerating RA. SR c BBB on tele. Pt seemed very lethargic overnight and complained of "bouncy vision". Neuro asse ssment seemed to be fine and was a little weak with walking to the bathroom over night. No complaints of pain. 1 BM overnight UOP adequate. Dressings C/D/I. * Sis Hopper, PT - 12/19/2020 1:47 PM CDT PHYSICAL THERAPY PROGRESS NOTE Name: Carli Koroma : 1945 Age: [age] y.o. Admission Date: 12/07/2020 LOS: 12 days Mobility Patient Turn/Position: Supine Progressive Mobility Level: Walk in room Distance Walked (feet): 15 ft Level of Assistance: Assist X1 Assistive Device: Walker Time Tolerated: 11-30 minutes Activity Limited By: Dizziness Subjective Significant hospital events: 75yo female who presented to OSH for shortness of air. She underwent cardiac catheterization for NSTEMI and was found to have kiana re multivessel CAD. An IABP was placed, significant leak from her IABP and she w as transferred to without IABP. s/p 2v CABG 12/16. 12/17-extubated; IABP remov al; Acute loss in RLL pulses following IABP removal, s/p thrombectomy via poplit eal exposure by vascular. Mental / Cognitive Status: Alert;Oriented;Cooperative;Follows Commands Persons Present: Daughter Pain: Patient has no complaint of pain Pain Interventions: Patient agrees to participate in therapy with modifications to session Comments: Room air. Precautions: Sternal Precautions Ambulation Assist: Independent Mobility in Community without Device Patient Owned Equipment: Single Point Cane Home Situation: Lives with Family Type of Home: House Entry Stairs: 3-5 Stairs In-Home Stairs: No Stairs Bed Mobility/Transfer Bed Mobility: Sit to Supine: Moderate Assist Transfer Type: Sit to/from Stand Transfer: Assistance Level: To/From;Bed Side Chair;Moderate Assist Transfer: Assistive Device: Hand Hold Assist Transfers: Type Of Assistance: Verbal Cues;To Maintain Precautions;For Balance;F or Strength Deficit;For Safety Considerations End Of Activity Status: In Bed;Nursing Notified;Instructed Patient to Request As sist with Mobility;Instructed Patient to Use Call Light Comments: Return to supine to allow chest tube removal at end of session. Balance Sitting Balance: Static Sitting Balance;Dynamic Sitting Balance;2 UE Support;Min imal Assist Standing Balance: Static Standing Balance;Dynamic Standing Balance;2 UE support; Moderate Assist Gait Gait Distance: 15 feet Gait: Assistance Level: Moderate Assist;Management of Lines;Safety Consideration s Gait: Assistive Device: Roller Walker Gait: Descriptors: Decreased foot clearance RLE;Decreased foot clearance LLE;Pac e: Slow;Forward trunk flexion;Step-To Gait;No balance loss Activity Limited By: Complaint of Dizziness Assessment/Progress Impaired Mobility Due To: Pain;Post Surgical Changes;Post Surgical Precautions Assessment/Progress: Should Improve w/ Continued PT Comments: Patient reports significant dizziness this date with vitals reading WF L throughout session. Unable to progress ambulation due to dizziness with notabl e unsteadiness with sitting, standing and taking steps to return to bed. Reports improved symptoms with return to supine. Will continue to benefit from ongoing PT. AM-PAC 6 Clicks Basic Mobility Inpatient Turning from your back to your side while in a flat bed without using bed rails: A Little Moving from lying on your back to sitting on the side of a flatbed without using bedrails : A Little Moving to and from a bed to a chair (including a wheelchair): A Lot Standing up from a chair using your arms (e.g. wheelchair, or bedside chair): A Lot To walk in hospital room: A Lot Climbing 3-5 steps with a railing: Total Raw Score: 13 Standardized (T-scale) Score: 33.99 Basic Mobility CMS 0-100%: 57.65 CMS G Code Modifier for Basic Mobility: CK Goals Goal Formulation: With Patient Time For Goal Achievement: 5 days, To, 7 days Patient Will Go Supine To/From Sit: Independently, Ongoing Patient Will Transfer Bed/Chair: New Goal, w/ Stand By Assist Patient Will Transfer Sit to Stand: Independently, Ongoing Patient Will Ambulate: Greater than 200 Feet, w/ Walker, Independently, Ongoing Patient Will Go Up / Down Stairs: New Goal, 3-5 Stairs, w/ Minimal Assist Plan Treatment Interventions: Mobility Training;Strengthening;Endurance Training Plan Frequency: 5 Days per Week PT Plan for Next Visit: Progress bed mobility, progress ambulation with RW PT Discharge Recommendations Recommendation: Inpatient setting;Recommend rehab medicine consult Therapist [place] D[place] [id number] Date 12/19/2020 * Nathalia Delgado RN - 12/19/2020 1:09 PM CDT 12/19/20 1200 12/19/20 1300 Indwelling Urinary Catheter 12/16/20740 16 FR Placement Date/Time: 12/16/20740 Unit where catheter was placed: (c) Unit (C omment) Urinary Catheter Size: 16 FR Urinary Catheter Type: Regular (Two-way) Urine Output (ml) 30 milliliters 20 milliliters Drain Care Emptied -- Notified Pierre Tran APRN of pt low urine output. No new orders at this time * Pierre Tran APRN-STRAIGHTENER HAND - 12/19/2020 11:09 AM CDT Cardiothoracic Surgery Critical Care Progress Note Carli Pressleybernardonorma Today's Date: 12/19/2020 Admission Date: 12/07/2020 LOS: 12 days 12/16/2020 Procedures: 1. CABG x 2 with COFFMAN to LAD and SV to OM1 (CPT 50012, 40293) 2. Endoscopic Vein [place] (CPT 97057) 3. Right femoral arterial intraaortic balloon pump placement 4. Transesophageal echocardiography 12/17/2020 Procedures: Thrombus involving the popliteal and anterior tibial arteries. Thrombectomy perf ormed with 3Fr Kasia balloon with return of distal pulses. 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 ([facility]) NSTEMI, initial episode of care ([facility]) Essential hypertension Hyperlipidemia NYHA class 2 acute on chronic systolic heart failure ([facility]) Ischemic cardiomyopathy Type 2 diabetes mellitus ([facility]) Cardiogenic shock ([facility]) On intra-aortic balloon pump assist Hypokalemia Ischemia of right lower extremity Vasogenic shock ([facility]) Acute blood loss anemia Assessment/Plan: Neuro Alert and oriented, pain controlled. Possibly some delirium overnight. Add melatonin. No seroquel for now d/t prolonged QTc. Holding narcotics. Contin ue scheduled APAP with PRN low dose tramadol. Cont Gabapentin 300 mg Q8H. 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 CV SR with BBB rate 70-80's. Epicardial wires capped. BP 1126/49 (74). MAP g oal 65-90. Epi weaned off 12/18. Decrease Milrinone to 0.125mcg/kg/min. Cont meto prolol 12.5mg BID. IABP pulled 12/17. Cont bASA and statin q 72 hrs. 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 Intra op AIDAN LVEF 20% on epi 0.1 mcg/kg/min. Re-engage Heart Failure Team. Vascular: s/p R popliteal thrombectomy for acute thrombus following IABP removal . Pedal pulses restored and pulses now easily palpable. No need for AC per vascu lar surgery. Appreciate vascular surgery assistance. Resp Daily CXR bedside interpretation: lungs expanded, bilateral pleural effusions, mild pulmonary vascular congestion; will review radiology report. 1 L NC, wean O2. Cont IS, aggressive pulm toilet. Chest tubes: remove today. Renal Baseline sCr. 0.83. Scr today 0.86. Net -327 ml/24 hours. Continue la eduled lasix 20 mg IV BID. Monitor UOP. Monitor BMP. Remove [place]. GI - ADAT, continue post op bowel regimen. LBM 12/19. ID Afebrile. Wbc 21->11-->17--15.5. Post op abx complete. Heme Hgb 7.7-->7.4, platelets 150-->177, Monitor cbc. Continue foot pumps for DVT prophylaxis, add SQ Heparin. FEN replace Mg and K to minimize the risk of cardiac arrhythmias. Hgb A1C 5. 9%, MDCF. Activity Pt up to chair today, should ambulate in halls with nursing and car diac rehab TID. Disposition: Plan as above, telemetry status. I have seen, personally fully evaluated, and discussed patient with critical car e attending Dr. Yohana Hester and the cardiothoracic surgeon. Prophylaxis Review: Lines: No Antibiotic Usage: No VTE: Pharmacological prophylaxis; SQ Heparin and Mechanical prophylaxis; Foot p ump Urinary Catheter: No TRISTEN Jerry CTS Intensive Care Pager [phone] 12/19/2020 Subjective: HPI: Carli Koroma is a 75 y.o. female who initially presented to outside hospit al in [place], [place] on 12/06/20 reporting chief complaint of chest pain, shortness of breath, nausea with diaphoresis. She was found to have elevated troponin with NSTEMI; went to clinical laboratory technician for IABP placement. Her IABP was placed to [facility] and de veloped a leak; therefore it was discontinued to prior to her transfer to [facility]. She was also found to have elevated BNP of927 with HFrEF (30%) on echocardiog reika. Past medical history includes HTN, HLD, DM 2, CKD II, neuropathy.She is n ow s/p CABG x [address] Webster on 12/16/20. 12/17: R IABP removal. Acute popliteal thrombus s/p thrombectomy with vascular burns rgery. Epi 0.06, milrinone 0.25. Work towards extubation. 12/18: epi @ 0.03 mcg/kg/min (slow wean to off), lasix 20 mg IV BID, d/c mediasti nal CTs, MDCF 12/19: Milrinone 0.125mcg/kg/min, pull CTs, cont scheduled diuretics, re-engage H eart Failure, add seroquel QHS REVIEW OF SYSTEMS: Review of Systems Constitutional: Positive for malaise/fatigue. Negative for fever. Eyes: Negative for blurred vision and double vision. Respiratory: Positive for cough and sputum production. Negative for hemoptysis a nd shortness of breath. Cardiovascular: Negative for chest pain, palpitations and leg swelling. Gastrointestinal: Negative for abdominal pain, nausea and vomiting. Musculoskeletal: Negative for falls. Neurological: Negative for dizziness, focal weakness, weakness and headaches. Psychiatric/Behavioral: The patient is not nervous/anxious. Objective: Medications: Scheduled Meds:acetaminophen (TYLENOL EXTRA STRENGTH) tablet 1,000 mg, 1,000 mg, Oral, Q6H while awake allopurinoL (ZYLOPRIM) tablet 100 mg, 100 mg, Oral, QDAY amiodarone (CORDARONE) tablet 400 mg, 400 mg, Oral, BID aspirin chewable tablet 81 mg, 81 mg, Oral, QDAY ezetimibe (ZETIA) tablet 10 mg, 10 mg, Oral, QHS furosemide (LASIX) injection 20 mg, 20 mg, Intravenous, BID(-) gabapentin (NEURONTIN) capsule 300 mg, 300 mg, Oral, Q8H heparin (porcine) PF syringe 5,000 Units, 5,000 Units, Subcutaneous, Q8H insulin aspart (U-100) (NOVOLOG FLEXPEN U-100 INSULIN) injection PEN 0-12 Units, 0-12 Units, Subcutaneous, ACHS (22) lidocaine (LIDODERM) 5 % topical patch 1 patch, 1 patch, Topical, QDAY melatonin tablet 3 mg, 3 mg, Oral, QHS metoprolol tartrate tablet 12.5 mg, 12.5 mg, Oral, BID polyethylene glycol 3350 (MIRALAX) packet 17 g, 1 packet, Oral, BID QUEtiapine (SEROquel) tablet 12.5 mg, 12.5 mg, Oral, QHS rosuvastatin (CRESTOR) tablet 10 mg, 10 mg, Oral, Q72H* senna/docusate (SENOKOT-S) tablet 2 tablet, 2 tablet, Oral, BID Continuous Infusions: milrinone (PRIMACOR) 20 mg/D5W 100 mL infusion 0.125 mcg/kg/min (12/19/20 09 26) PRN and Respiratory Meds:[START ON 12/21/2020] acetaminophen Q6H PRN OR [STAR T ON 12/21/2020] acetaminophen Q6H PRN, alum/mag hydroxide/simeth Q4H PRN, bisaco dyL QDAY PRN, hydrALAZINE Q6H PRN, lidocaine PF PRN, magnesium sulfate PRN OR* * magnesium oxide PRN, milk of magnesia (CONC) QDAY PRN, nalOXone PRN, ondansetr on Q6H PRN OR ondansetron (ZOFRAN) IV Q6H PRN, potassium chloride SR PRN O R potassium chloride PRN OR potassium chloride in water PRN, traMADoL Q6H PRN Vital Signs: Last Filed Vital Signs: 24 Hour Ra cordero Temp: 36.5 C (97.7 F) (12/19 0800) Pulse: 73 (12/19 1000) Respirations: 18 PER MINUTE (12/19 1000) SpO2: 96 % (12/19 1000) SpO2 Pulse: 73 (12/19 1000) ABP: (108-180)/(42-76) Temp: [36.5 C (97.7 F)-36.8 C (98.3 F)] Pulse: [73-95] Respirations: [14 PER MINUTE-25 PER MINUTE] SpO2: [92 %-98 %] Intensity Pain Scale (Self Report): 5 (12/18/201999) Vitals: 12/16/20 0621 12/17/20 0500 12/19/20 0500 Weight: 58.1 kg (128 lb) 56.7 kg (125 lb) 62.3 kg (137 lb 6.4 oz) Intake/Output Summary: (Last 24 hours) Intake/Output Summary (Last 24 hours) at 12/19/2020 1110 Last data filed at 12/19/2020 1100 Gross per 24 hour Intake 962.81 ml Output 1360 ml Net -397.19 ml Physical Exam: Neuro: A&Ox4 Cardiovascular: RRR no rub or murmur Respiratory: diminished bases GI: soft, NT, active BS Extremities: trace BLE edema, peripheral pulses palpable, R groin bruising - no hematoma, R thigh bruising (old) Incisions: Sternal incision dressing, dry and intact. No crepitus or sternal ins tability. RLE incision dressing in place Chest Tubes OUTPUT/24 HOURS AIR LEAK PRESENT 24+32 fr 140 ml no Pertinent Meds: Taking Reason for Not Taking 1. Aspirin yes 2. B-Doug yes 3. Statin yes 4. RINA/ARB Ejection fraction>40 Artificial airway: None Vent weaning trial: Not applicable LABS: Recent Labs 12/16/20 1230 12/16/20 1655 12/17/20 0214 12/17/20 1550 12/18/20 0256 12/19/20 0303 NA 142 -- 143 145 141 142 K 3.3* 4.4 4.2 4.7 4.7 4.5 CL 108 -- 113* 114* 110 108 CO2 22 -- 21 GAP 12 -- 8 9 10 13* BUN 14 -- 13 13 16 29* CR 0.84 -- 0.83 0.70 0.68 0.86 GLU 210* -- 110* 139* 131* 173* CA 8.5 -- 8.7 8.6 8.5 8.7 MG 2.7* -- 2.6 -- 2.4 2.4 Recent Labs 12/16/20 1230 12/17/20 0214 12/17/20 1550 12/18/20 0256 12/19/20 0303 WBC 21.8* 11.8* 15.1* 17.0* 15.5* HGB 9.7* 8.7* 8.0* 7.7* 7.4* HCT 28.2* 25.4* 24.2* 22.2* 22.5* PLTCT 227 172 157 150 177 INR 1.2 -- -- -- -- PTT 28.5 -- -- -- -- Estimated Creatinine Clearance: 49.8 mL/min (based on SCr of 0.86 mg/dL). Vitals: 12/16/20 0621 12/17/20 0500 12/19/20 0500 Weight: 58.1 kg (128 lb) 56.7 kg (125 lb) 62.3 kg (137 lb 6.4 oz) Recent Labs 12/17/20 1740 12/17/20 1846 PHART 7.37 7.38 PO2ART 141* 131* Radiology and Other Diagnostic Procedures Review: Reviewed * Rosalind Chaparro MD - 12/19/2020 10:57 AM CDT Heart Failure Progress Note Date of Service: 12/19/2020 Carli Koroma is a 75 y.o. y.o. female. 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 female who [facility] [place], [place] on 12/[facility]/20 reporting chief complaint of chest pain, shortness of b reath, nausea with diaphoresis. She was found to have elevated troponin with NST BONY; went to clinical laboratory technician for IABP placement. Her IABP was placed to [facility] and develop ed a leak; therefore it was discontinued to prior to her transfer to [facility]. She was also found to have elevated BNP of 927 with HFrEF (30%) on echocardiogram. P ast medical history includes HTN, HLD, DM 2, CKD II, neuropathy. She underwent two vessel CABG (with COFFMAN to LAD and RSVG to OM ) by Dr Webster on 12/16/20. Recommendations/Plan: 1. Inotrope/Vasopressor therapy: currently on:milrinone 0.125 mcg/kg/min, off NE & epi, continue weaning as appropriate (suspect she will be able to wean completely by tomorrow) 2. Diuretic therapy: continue Lasix 20mg BID, goal CVP: <15 3. Critical Care Medications per CTS and Critical Care Team/Anesthesiology. 4. Insulin gtt per [place] protocol managed by Critical Care team and CTS. 5. Temporary pacing wires VVI 60 - important to maintain integrity of temp pacin g wires 6. Add spironolactone 25mg Qd 7. Continue metoprolol tart 12.5mg BID At Discharge: 1. Baseline echo to be completed prior to discharge. 2. Follow Up: appointment with a member of the HF team within 7 calendar days of discharge. 3. Cardiac Rehab Pt seen and examined with Dr. Parker. Rosalind Chaparro MD Available on Voalte Assessment: Acute on chronic systolic HFrEF, EF: 30%. Major Complications or Comorbidities (LONGTERM): acute/ acute on chronic systolic and /or diastolic heart failure NYHA functional class III (marked limitation of physical activity - comfortable at rest, but less than ordinary activity causes symptoms of HF e.g., getting mariano ssed or standing from a sitting position), ACC Stage C (structural heart disease with prior or current symptoms of HF). She presents with signs of hypervolemia with left ventricular failure without s igns of low flow state. Admission BNP: 927 on 12/06 (OSH) Prior to admission diuretic regimen: None Intake/Output I/O last 24 hours: -300L I/O entire stay: +1.5L Urine output/24 hours: 1700L Goal Dry Weight: ~128 lbs Guideline Based Heart Failure Therapies: GDMT TUGBOAT OPERATOR Changes BB Atenolol 100 mg po daily Metoprolol 25 mg in AM, 12.5 mg in PM 12/11 Toprol XL 25 mg qhs 12/16 held post op ACEI/ARB/ARNI Previously on Irbesartan *will consider low dose Losartan after s urgery SGLT-2 Inhibitor N/A *consider initiating in outpt setting Aldosterone Antagonist N/A 12/11 Starting Spironolactone 12.5 mg daily 12/13 increase suleman to 25 mg daily 12/16 held post op Hydralazine/Nitrate N/A Ivabradine N/A HRMT N/A *pt may benefit from BUS COMPANY MANAGER-D if EF does not improve with GDMT Anticoagulation for Afib/flutter N/A Cardiac Rehab Evaluation for LVEF <40% Will plan for upon discharge Diuretic Therapy Prior to admission dose N/A Given on admission 12/07 IV lasix 40 mg x1 Daily Dosing 12/08-12/15 Lasix 20 mg po daily 12/16 held post op Cardiomyopathy - likely secondary to ischemic etiology after recent VA - no TUGBOAT OPERATOR GDMT; will start with low dose Toprol XL and Spironolactone, consider l ow dose Losartan after surgery - pt may require BUS COMPANY MANAGER-D in outpt setting w/ LBBB on EKG NSTEMI, CAD - pt presented to OSH w/ NSTEMI; had IABP placed initially; transferred to [facility] for further management - 12/07 admit troponin >22.9>18.63>12.99>11.67>4/59>0.64 on 12/12 - CABG x 2 with COFFMAN to LAD and RSVG to OM on 12/16/[address] Webster HLD - 12/08 lipid panel: Cholesterol 215, trigs 358, HDL 30, LDL 141 - no TUGBOAT OPERATOR statins; has failed atorvastatin and rosuvastatin 5 and 10 mg with repo rts of myalgia pain (resolved after stopping) consider trial of pravastatin 5-10 mg daily as lowest side effect profile and titrate up to highest tolerated dose - currently on rosuvastatin 10 mg Q 72 hours and zetia 10 mg daily > managed per primary team DM 2 - 12/07/20 HgbA1c 5.9 - TUGBOAT OPERATOR Janumet XR on hold during admission - Sliding scale Insulin while admitted - pt w/ mod amt neuropathy; takes gabapentin 300 mg 5x/day at home - currently receiving gabapentin 300 mg at noon, 600 mg at 1700, 600 mg qhs > managed per primary team CKD II - admit creatinine 0.71-->0.69 today (12/15) > daily labs per primary team Post-op Course of Events 12/16 IABP inserted post operatively, removed 12/17 Reason for Consultation: Evaluation and recommendations re: heart failure manag ement post CABG Subjective: Patient is extubated and reports continued improvement. She is sitting up in bed with family in the room. States she is doing better today, does not like to walk due to the pain in her leg but agrees walking is beneficial for helping her le ave the hospital. History of Present Illness: Carli Koroma is a 75 y.o. female who initially pres ented to outside hospital in [place], [place] on 12/06/20 reporting chief complaint o f chest pain, shortness of breath, nausea with diaphoresis. She was found to hav e elevated troponin with NSTEMI; went to clinical laboratory technician for IABP placement. Her IABP w as placed to [facility] and developed a leak; therefore it was discontinued to prior to her transfer to [facility]. She underwent two vessel CABG (with COFFMAN to LAD and RSVG to OM ) by Dr Webster on 12/16/20. Objective: Allergies: Allergies Allergen Reactions Crestor [Rosuvastatin] MUSCLE PAIN Medications: Scheduled Meds:acetaminophen (TYLENOL EXTRA STRENGTH) tablet 1,000 mg, 1,000 mg, Oral, Q6H while awake allopurinoL (ZYLOPRIM) tablet 100 mg, 100 mg, Oral, QDAY amiodarone (CORDARONE) tablet 400 mg, 400 mg, Oral, BID aspirin chewable tablet 81 mg, 81 mg, Oral, QDAY ezetimibe (ZETIA) tablet 10 mg, 10 mg, Oral, QHS furosemide (LASIX) injection 20 mg, 20 mg, Intravenous, BID(9-17) gabapentin (NEURONTIN) capsule 300 mg, 300 mg, Oral, Q8H heparin (porcine) PF syringe 5,000 Units, 5,000 Units, Subcutaneous, Q8H insulin aspart (U-100) (NOVOLOG FLEXPEN U-100 INSULIN) injection PEN 0-12 Units, 0-12 Units, Subcutaneous, ACHS (22) lidocaine (LIDODERM) 5 % topical patch 1 patch, 1 patch, Topical, QDAY melatonin tablet 3 mg, 3 mg, Oral, QHS metoprolol tartrate tablet 12.5 mg, 12.5 mg, Oral, BID milk of magnesia (CONC) oral suspension 10 mL, 10 mL, Oral, BID polyethylene glycol 3350 (MIRALAX) packet 17 g, 1 packet, Oral, BID QUEtiapine (SEROquel) tablet 12.5 mg, 12.5 mg, Oral, QHS rosuvastatin (CRESTOR) tablet 10 mg, 10 mg, Oral, Q72H* senna/docusate (SENOKOT-S) tablet 2 tablet, 2 tablet, Oral, BID Continuous Infusions: milrinone (PRIMACOR) 20 mg/D5W 100 mL infusion 0.125 mcg/kg/min (12/19/2003 02) PRN and Respiratory Meds:[START ON 12/21/2020] acetaminophen Q6H PRN OR [STAR T ON 12/21/2020] acetaminophen Q6H PRN, alum/mag hydroxide/simeth Q4H PRN, bisaco dyL QDAY PRN, hydrALAZINE Q6H PRN, lidocaine PF PRN, magnesium sulfate PRN OR* * magnesium oxide PRN, milk of magnesia (CONC) QDAY PRN, nalOXone PRN, ondansetr on Q6H PRN OR ondansetron (ZOFRAN) IV Q6H PRN, potassium chloride SR PRN O R potassium chloride PRN OR potassium chloride in water PRN, traMADoL Q6H PRN Medications Prior to Admission Medication Sig Dispense Refill Last Dose allopurinoL (ZYLOPRIM) 100 mg tablet Take 100 mg by mouth daily. Take with f ood. Indications: treatment to prevent acute gout attack antiox #8/om3/dha/epa/lut/zeax (PRESERVISION AREDS 2 (OMEGA-3) PO) Take 1 ta blet by mouth daily. atenoloL (TENORMIN) 100 mg tablet Take 100 mg by mouth daily. Indications: h igh blood pressure gabapentin (NEURONTIN) 300 mg capsule Take 300 mg by mouth five times daily. SITagliptin-metformin (JANUMET XR) 100-1,000 mg tablet Take 1 tablet by mout h daily. Indications: type 2 diabetes mellitus Vital Signs: Last Filed Vital Signs: 24 Hour Range Temp: 36.5 C (97.7 F) (12/19 0800) Pulse: 73 (12/19 1000) Respirations: 18 PER MINUTE (12/19 1000) SpO2: 96 % (12/19 1000) SpO2 Pulse: 73 (12/19 1000) ABP: (108-180)/(42-76) Temp: [36.5 C (97.7 F)-36.8 C (98.3 F)] Pulse: [73-95] Respirations: [14 PER MINUTE-25 PER MINUTE] SpO2: [92 %-98 %] Intensity Pain Scale (Self Report): 5 (12/18/201999) Hemodynamics: CO 2.8 CI 1.77 CVP 10 PAP /18 mean 21 SvO2 53% Physical Exam: General Appearance: thin, no distress, sitting in chair beside bed Skin: warm and dry, pale Digits and Nails: no cyanosis or clubbing Neck Veins: JVP ~7-8cm, HJR positive Chest Inspection: sternal incision/dressing C/D/I, chest tube sites with dressin g C/D/I Respiratory Effort: breathing comfortably, no respiratory distress Auscultation/Percussion: lungs clear to auscultation, no rales or rhonchi, no wh eezing Cardiac Rhythm: regular rhythm and normal rate Cardiac Auscultation: S1, S2 not clearly heard no rub, no S3 gallop, no S4 falk p Murmurs: no murmur Pedal Pulses: normal symmetric pedal pulses Lower Extremity Edema: no lower extremity edema Peripheral Circulation: distal upper and lower extremities warm and well-perfuse d Abdominal Exam: soft, non-tender, no masses, bowel sounds normal, Orientation: alert and answering questions appropriately Neurologic Exam: moving all 4 extremities Laboratory Review: CBC w/Diff Lab Results Component Value Date/Time WBC 15.5 (H) 12/19/2020 03:03 AM RBC 2.42 (L) 12/19/2020 03:03 AM HGB 7.4 (L) 12/19/2020 03:03 AM HCT 22.5 (L) 12/19/2020 03:03 AM MCV 92.9 12/19/2020 03:03 AM MCH 30.7 12/19/2020 03:03 AM MCHC 33.0 12/19/2020 03:03 AM RDW 15.1 (H) 12/19/2020 03:03 AM PLTCT 177 12/19/2020 03:03 AM MPV 8.1 12/19/2020 03:03 AM Lab Results Component Value Date/Time NEUT 55 12/16/2020 05:33 AM ANC 4.50 12/16/2020 05:33 AM LYMA 30 12/16/2020 05:33 AM ALC 2.40 12/16/2020 05:33 AM IMAN 11 12/16/2020 05:33 AM AMC 0.90 (H) 12/16/2020 05:33 AM EOSA 3 12/16/2020 05:33 AM AEC 0.30 12/16/2020 05:33 AM BASA 1 12/16/2020 05:33 AM ABC 0.00 12/16/2020 05:33 AM Chemistry Lab Results Component Value Date/Time NA 142 12/19/2020 03:03 AM K 4.5 12/19/2020 03:03 AM CL 108 12/19/2020 03:03 AM CO2 21 12/19/2020 03:03 AM GAP 13 (H) 12/19/2020 03:03 AM BUN 29 (H) 12/19/2020 03:03 AM CR 0.86 12/19/2020 03:03 AM GLU 173 (H) 12/19/2020 03:03 AM Lab Results Component Value Date/Time CA 8.7 12/19/2020 03:03 AM ALBUMIN 3.8 12/16/2020 05:33 AM TOTPROT 6.8 12/16/2020 05:33 AM ALKPHOS 62 12/16/2020 05:33 AM AST 21 12/16/2020 05:33 AM ALT 14 12/16/2020 05:33 AM TOTBILI 0.8 12/16/2020 05:33 AM GFR >60 12/19/2020 03:03 AM GFRAA >60 12/19/2020 03:03 AM Renal Function Lab Results Component Value Date/Time NA 142 12/19/2020 03:03 AM K 4.5 12/19/2020 03:03 AM CL 108 12/19/2020 03:03 AM CO2 21 12/19/2020 03:03 AM GAP 13 (H) 12/19/2020 03:03 AM BUN 29 (H) 12/19/2020 03:03 AM BUN 16 12/18/2020 02:56 AM BUN 13 12/17/2020 03:50 PM Lab Results Component Value Date/Time CR 0.86 12/19/2020 03:03 AM CR 0.68 12/18/2020 02:56 AM CR 0.70 12/17/2020 03:50 PM GLU 173 (H) 12/19/2020 03:03 AM CA 8.7 12/19/2020 03:03 AM ALBUMIN 3.8 12/16/2020 05:33 AM Lipid Profile INR Lab Results Component Value Date CHOL 215 (H) 12/08/2020 TRIG 358 (H) 12/08/2020 HDL 30 (L) 12/08/2020 LDL 141 (H) 12/08/2020 VLDL 72 12/08/2020 NONHDLCHOL 185 12/08/2020 Lab Results Component Value Date INR 1.2 12/16/2020 Chest X-Ray: 1. Mild bibasilar opacities, likely atelectasis. 2. Interval decrease in pulmonary edema. Tele/ECG: No concern for junctional rhythm as P waves are visible, so this is a LBBB Echocardiogram Details: Echo Results (Last 3 results in the past 3 years) Echo EF LVIDD LA Size IVS LVPW Rest PAP (12/13/20) 30 (12/13/20) 6.11 (12/13/20) 3.83 (12/13/20) 0.92 (12/13/20) 0.99 (12/10/20) 34 (12/10/20) 30 (12/10/20) 5.50 (12/10/20) 3.70 (12/10/20) 1.10 (12/10/20) 0.80 Rosalind Chaparro MD * Ayleen White MD - 12/19/2020 10:55 AM CDT Daily Progress Note Today's Date: 12/19/2020 Name: Carli Koroma Admission Date: 12/07/2020 (LOS: 12 days) Assessment: Carli Koroma is a 75 y.o. female with recent CABG (12/17/2011) w/ IA BP removal 12/17 c/b popliteal thrombus who is now 2 Days Post-Op from a poplitea l thrombectomy (12/17/2020) with Dr. Salinas. 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 Pain is controlled. Sitting comfortably in chair. No concerns today. Objective: ABP: (108-180)/(42-76) Temp: [36.5 C (97.7 F)-36.8 C (98.3 F)] Pulse: [73-95] Respirations: [14 PER MINUTE-25 PER MINUTE] SpO2: [92 %-98 %] Body mass index is 25.13 kg/m. BMI Category: Acceptable (19 to <25) Lab Results Component Value Date/Time HGB 7.4 (L) 12/19/2020 03:03 AM HCT 22.5 (L) 12/19/2020 03:03 AM WBC 15.5 (H) 12/19/2020 03:03 AM PLTCT 177 12/19/2020 03:03 AM INR 1.2 12/16/2020 12:30 PM Lab Results Component Value Date/Time NA 142 12/19/2020 03:03 AM K 4.5 12/19/2020 03:03 AM CL 108 12/19/2020 03:03 AM CO2 21 12/19/2020 03:03 AM BUN 29 (H) 12/19/2020 03:03 AM CR 0.86 12/19/2020 03:03 AM MG 2.4 12/19/2020 03:03 AM CA 8.7 12/19/2020 03:03 AM Lab Results Component Value Date/Time GLUPOC 186 (H) 12/19/2020 07:36 AM GLUPOC 177 (H) 12/18/2020 09:12 PM GLUPOC 191 (H) 12/18/2020 05:20 PM Physical Exam Constitutional: She is oriented to person, place, and time. She appears well-dev eloped and well-nourished. No distress. HENT: Head: Normocephalic and atraumatic. Cardiovascular: Normal rate and intact distal pulses. Pulses: Radial pulses are 2+ on the right side and 2+ on the left side. Dorsalis pedis pulses are 2+ on the right side and 2+ on the left side. Pulmonary/Chest: Effort normal. No respiratory distress. Abdominal: Soft. She exhibits no distension. There is no abdominal tenderness. Musculoskeletal: General: Normal range of motion. Comments: R groin with significant ecchymosis Medial right lower extremity incision immediately distal to the knee well approx imated with no drainage or erythema. Neurological: She is alert and oriented to person, place, and time. Skin: Skin is warm and dry. Psychiatric: She has a normal mood and affect. Her behavior is normal. Judgment and thought content normal. Malnutrition Details: Active Wounds Wounds 12/16/20 0829 Surgical Incision Mid Sternum (Active) 12/16/20 0829 Sternum Wound Type: Surgical Incision Pressure Injury Stages: Pressure Injury Present On Inpatient Admission: Wound/Pressure Injury Orientation: Mid Wound Description (Comments): Wound Type:: Agree With My Assessment? Yes 12/19/20 0400 Wound Dressing Status Intact 12/19/20 08 Wound Dressing and / or Treatment Silverlon 12/19/20 08 Wound Drainage Amount None 12/19/20 08 Wound Base Assessment Dressing intact, base not assessed 12/19/20 08 Surrounding Skin Assessment Dry;Intact 12/19/20 08 Wound Site Closure Wound Adhesive Bandage 12/19/20 08 Number of days: 3 Wounds 12/16/20 0829 Surgical Incision (Active) 12/16/20 0829 Wound Type: Surgical Incision Pressure Injury Stages: Pressure Injury Present On Inpatient Admission: Wound/Pressure Injury Orientation: Wound Description (Comments): Wound Type:: Agree With My Assessment? Yes 12/19/20 0400 Wound Dressing Status Open to air 12/18/201999 Wound Dressing and / or Treatment Silverlon 12/17/20 08 Wound Securement / Protective Device Rina wrap 12/17/20 0800 Wound Drainage Amount None 12/18/201999 Wound Base Assessment Clean;Dry;Intact;[place] 12/18/201999 Surrounding Skin Assessment Dry;Intact 12/18/201999 Wound Site Closure Open to Air 12/18/201999 Number of days: 3 Wounds 12/16/20 0848 Surgical Incision Inner;Upper;Left Leg (Active) 12/16/20 0848 Leg Wound Type: Surgical Incision Pressure Injury Stages: Pressure Injury Present On Inpatient Admission: Wound/Pressure Injury Orientation: Inner;Upper;Left Wound Description (Comments): Wound Type:: Agree With My Assessment? Yes 12/19/20 0400 Wound Dressing Status Open to air 12/18/201999 Wound Securement / Protective Device Rina wrap 12/17/20 0800 Wound Drainage Amount None 12/18/201999 Wound Base Assessment Clean;Dry;Intact;[place] 12/18/201999 Surrounding Skin Assessment Dry;Intact 12/18/201999 Wound Site Closure Open to Air 12/18/201999 Number of days: 3 Wounds 12/17/20 1333 Surgical Incision Right;Medial (Active) 12/17/20 1333 Wound Type: Surgical Incision Pressure Injury Stages: Pressure Injury Present On Inpatient Admission: Wound/Pressure Injury Orientation: Right;Medial Wound Description (Comments): Wound Type:: Agree With My Assessment? Yes 12/19/20 0400 Wound Dressing Status Intact 12/19/20 08 Wound Dressing and / or Treatment [place] 12/19/20 0800 Wound Drainage Amount None 12/19/20 08 Wound Base Assessment Dressing intact, base not assessed 12/19/20 0800 Surrounding Skin Assessment Dry;Intact 12/19/20 08 Wound Site Closure Wound Adhesive Bandage 12/19/20 08 Number of days: 2 Ayleen White MD Service Pager: # [phone] Associated attestation - Musa Salinas MD - 12/20/2020 11:54 AM CDT ATTESTATION I personally performed the turner portions of the E/M visit, discussed case with re sident and concur with resident documentation of history, physical exam, assessm ent, and treatment plan unless otherwise noted. He is awake and alert sitting up in a chair. Expected incisional discomfort. D enies any foot pain. Right medial calf incision intact. Good pedal pulses bila terally. Staff name: Musa Salinas MD Date: 12/20/2020 * Dario Webster MD - 12/19/2020 10:03 AM CDT Walking. Stable. HTN on milrinone. Will re engage HF teamzuleika. 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 I provided or personally directed critical care services including Ventila tor Management, Invasive Hemodynamic Management, Management of Cardiac Support I nfusions, Management of Vasogenic Shock, Management of Cardiogenic Shock, Compre hensive Pain Management and Complex Fluid &Electrolyte Managementand the patient is at risk for life threatening deterioration necessitating complex medical decision making and ongoing provision of ICU care. Critical Care Time:42minutes Yohana Hester MD 75yo females/p CABGx2, IABP placement. H/o CAD, HTN, NSTEMI, HFrEF 10-15%, D M. She underwent RLE thrombectomy on POD 1 after IABP pull. Neuro: Prn pain meds;TUGBOAT OPERATOR gabalow dose Cardiac: Wean milrinone to 0.125. Will consult HF for continued managment Pulmonary:I/S, OOB FEN: AAT ID:Monitor WBC and for fever Renal: Monitor Cr and UOP. Lasix BID for even to neg 500cc Heme: Monitor H/H Endo: SSI Prophylaxis: HOB>40, PPI, DVT prophylaxis when able __ Subjective: Carli Koroma is a 75 y.o. female. Significant event: off epi, weaned milrino ne. Objective: Medications: Scheduled Meds:acetaminophen (TYLENOL EXTRA STRENGTH) tablet 1,000 mg, 1,000 mg, Oral, Q6H while awake allopurinoL (ZYLOPRIM) tablet 100 mg, 100 mg, Oral, QDAY amiodarone (CORDARONE) tablet 400 mg, 400 mg, Oral, BID aspirin chewable tablet 81 mg, 81 mg, Oral, QDAY ezetimibe (ZETIA) tablet 10 mg, 10 mg, Oral, QHS furosemide (LASIX) injection 20 mg, 20 mg, Intravenous, BID(-) gabapentin (NEURONTIN) capsule 300 mg, 300 mg, Oral, Q8H heparin (porcine) PF syringe 5,000 Units, 5,000 Units, Subcutaneous, Q8H insulin aspart (U-100) (NOVOLOG FLEXPEN U-100 INSULIN) injection PEN 0-12 Units, 0-12 Units, Subcutaneous, ACHS () lidocaine (LIDODERM) 5 % topical patch 1 patch, 1 patch, Topical, QDAY melatonin tablet 3 mg, 3 mg, Oral, QHS metoprolol tartrate tablet 12.5 mg, 12.5 mg, Oral, BID polyethylene glycol 3350 (MIRALAX) packet 17 g, 1 packet, Oral, BID rosuvastatin (CRESTOR) tablet 10 mg, 10 mg, Oral, Q72H* senna/docusate (SENOKOT-S) tablet 2 tablet, 2 tablet, Oral, BID Continuous Infusions: milrinone (PRIMACOR) 20 mg/D5W 100 mL infusion 0.125 mcg/kg/min (12/19/ 09 26) PRN and Respiratory Meds:[START ON 12/21/2020] acetaminophen Q6H PRN OR [STAR T ON 12/21/2020] acetaminophen Q6H PRN, alum/mag hydroxide/simeth Q4H PRN, bisaco dyL QDAY PRN, hydrALAZINE Q6H PRN, lidocaine PF PRN, magnesium sulfate PRN OR* * magnesium oxide PRN, milk of magnesia (CONC) QDAY PRN, nalOXone PRN, ondansetr on Q6H PRN OR ondansetron (ZOFRAN) IV Q6H PRN, potassium chloride SR PRN O R potassium chloride PRN OR potassium chloride in water PRN, traMADoL Q6H PRN Vital Signs: Last Filed Vital Signs: 24 Hour Ra nge ABP: 109/42 (12/19 1000) Temp: 36.5 C (97.7 F) (12/19 0800) Pulse: 73 (12/19 1000) Respirations: 18 PER MINUTE (12/19 1000) SpO2: 96 % (12/19 1000) Weight: 62.3 kg (137 lb 6.4 oz) (12/19 0500) ABP: (108-180)/(42-76) Temp: [36.5 C (97.7 F)-36.8 C (98.3 F)] Pulse: [73-95] Respirations: [14 PER MINUTE-25 PER MINUTE] SpO2: [92 %-98 %] Intensity Pain Scale (Self Report): (not recorded) Vitals: 12/16/20 0621 12/17/20 0500 12/19/20 0500 Weight: 58.1 kg (128 lb) 56.7 kg (125 lb) 62.3 kg (137 lb 6.4 oz) Critical Care Vitals: [place] SVI (Calculated): (!) 23 (12/18/201199) SVRI (Calculated): (!) 3048 (12/18/201199) ICP Monitoring: PA Catheter: PA Catheter Only PA Pressure: (!) 35/13 (12/18/201199) PA Mean (mm Hg): (!) 21 mm Hg (12/18/201199) CO: (!) 3.8 (12/18/201199) CI: (!) 2.1 (12/18/201199) SVR (Calculated): (!) 1726 (12/18/201199) SVRI (Calculated): (!) 3048 (12/18/201199) SV (Calculated): (!) 43 (12/18/201199) SVI (Calculated): (!) 23 (12/18/201199) Hemodynamics/Oxycalcs: Hemodynamics/Oxycalcs PA Pressure: (!) 35/13 (12/18/201199) PA Mean (mm Hg): (!) 21 mm Hg (12/18/201199) CVP: (!) 12 MM HG (07/14/21 1200) CO: (!) 3.8 (12/18/20 1200) CI: (!) 2.1 (12/18/201199) SVR (Calculated): (!) 1726 (12/18/20 1200) SVRI (Calculated): (!) 3048 (12/18/20 1200) RVSWI (Calculated): (!) 3 (12/18/20 1200) SV (Calculated): (!) 43 (12/18/201199) SVI (Calculated): (!) 23 (12/18/20 1200) RVEF: (!) 23 % (12/18/201199) EDV: (!) 193 (12/18/201199) EDVI: (!) 104 (12/18/201199) Intake/Output Summary: (Last 24 hours) Intake/Output Summary (Last 24 hours) at 12/19/2020 1135 Last data filed at 12/19/2020 1100 Gross per 24 hour Intake 962.81 ml Output 1360 ml Net -397.19 ml Lab Review: Pertinent labs reviewed Point of Care Testing: (Last 24 hours): Glucose: (!) 173 (12/19/20 0303) POC Glucose (Download): (!) 186 (12/19/20 0736) Radiology and Other Diagnostic Procedures Review: Pertinent radiology reviewed. Yohana Hester MD Developmental Behavioral Physician Anesthesiology and Critical Care [phone] * Abhinav Major MD - 12/19/2020 6:02 AM CDT 75F NSTEMI, IABP c/b bleeding s/p 2v CABG 12/16 Doing well, no acute events overnight. 70s in sinus, MAP >80, PAC out. 0.25 milrinone Adequate uop. Chest tube w/ 10 overnight, 140 total. Labs stable. hgb 7.4 from 7.7, platelet 177. Cr 0.86 Slow wean milrinone, map > 80 Scheduled diuretic Monitor pleural chest tube output, d/c if output remains small. Likely tele today. Abhinav Major MD * Dario Webster MD - 12/18/2020 8:00 PM CDT Walking. Hemodynamically stable. Feeling well. Diuresis, mediastinal tubes out. * Elver Puga MD - 12/18/2020 4:23 PM CDT Daily Progress Note Today's Date: 12/18/2020 Name: Carli Koroma Admission Date: 12/07/2020 (LOS: 11 days) Assessment: Carli Koroma is a 75 y.o. female with recent CABG (12/17/2011) w/ IA BP removal 12/17 c/b popliteal thrombus who is now 1 Day Post-Op from a popliteal thrombectomy (12/17/2020) with Dr. Salinas. 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 Pain is controlled. Sitting comfortably in chair. Objective: ABP: (118-158)/(45-72) Temp: [36.7 C (98.1 F)-37.8 C (100 F)] Pulse: [85-100] Respirations: [8 PER MINUTE-21 PER MINUTE] SpO2: [92 %-100 %] Body mass index is 22.86 kg/m. BMI Category: Acceptable (19 to <25) Lab Results Component Value Date/Time HGB 7.7 (L) 12/18/2020 02:56 AM HCT 22.2 (L) 12/18/2020 02:56 AM WBC 17.0 (H) 12/18/2020 02:56 AM PLTCT 150 12/18/2020 02:56 AM INR 1.2 12/16/2020 12:30 PM Lab Results Component Value Date/Time NA 141 12/18/2020 02:56 AM K 4.7 12/18/2020 02:56 AM CL 110 12/18/2020 02:56 AM CO2 21 12/18/2020 02:56 AM BUN 16 12/18/2020 02:56 AM CR 0.68 12/18/2020 02:56 AM MG 2.4 12/18/2020 02:56 AM CA 8.5 12/18/2020 02:56 AM Lab Results Component Value Date/Time GLUPOC 191 (H) 12/18/2020 03:59 PM GLUPOC 189 (H) 12/18/2020 10:57 AM GLUPOC 148 (H) 12/18/2020 07:57 AM Physical Exam Constitutional: She is oriented to person, place, and time. She appears well-dev eloped and well-nourished. No distress. HENT: Head: Normocephalic and atraumatic. Cardiovascular: Normal rate and intact distal pulses. Pulses: Radial pulses are 2+ on the right side and 2+ on the left side. Dorsalis pedis pulses are 2+ on the right side and 2+ on the left side. Pulmonary/Chest: Effort normal. No respiratory distress. Abdominal: Soft. She exhibits no distension. There is no abdominal tenderness. Musculoskeletal: General: Normal range of motion. Comments: R groin with significant ecchymosis Medial right lower extremity incision immediately distal to the knee with OR mariano ssing in place without strikethrough Neurological: She is alert and oriented to person, place, and time. Skin: Skin is warm and dry. Psychiatric: She has a normal mood and affect. Her behavior is normal. Judgment and thought content normal. Malnutrition Details: Active Wounds Wounds 12/16/20 0829 Surgical Incision Mid Sternum (Active) 12/16/20 0829 Sternum Wound Type: Surgical Incision Pressure Injury Stages: Pressure Injury Present On Inpatient Admission: Wound/Pressure Injury Orientation: Mid Wound Description (Comments): Wound Type:: Agree With My Assessment? Yes 12/18/20 1600 Wound Dressing Status Intact 12/18/20 0800 Wound Dressing and / or Treatment Silverlon 12/18/20 0800 Wound Drainage Amount Small 12/18/20 0800 Wound Base Assessment Dressing intact, base not assessed 12/18/20 0800 Surrounding Skin Assessment Warm;Dry;Intact 12/18/20 0800 Wound Site Closure Wound Adhesive Bandage 12/18/20 0800 Number of days: 2 Wounds 12/16/20 0829 Surgical Incision (Active) 12/16/20 0829 Wound Type: Surgical Incision Pressure Injury Stages: Pressure Injury Present On Inpatient Admission: Wound/Pressure Injury Orientation: Wound Description (Comments): Wound Type:: Agree With My Assessment? Yes 12/18/20 1600 Wound Dressing Status Open to air 12/18/20 0800 Wound Dressing and / or Treatment Silverlon 12/17/20 0800 Wound Securement / Protective Device Rina wrap 12/17/20 0800 Wound Drainage Amount None 12/18/20 0800 Wound Base Assessment Dry;Intact;[place] 12/18/20 08 Surrounding Skin Assessment Warm;Dry;Intact 12/18/20 0800 Wound Site Closure Open to Air 12/18/20 0800 Number of days: 2 Wounds 12/16/20 0848 Surgical Incision Inner;Upper;Left Leg (Active) 12/16/20 0848 Leg Wound Type: Surgical Incision Pressure Injury Stages: Pressure Injury Present On Inpatient Admission: Wound/Pressure Injury Orientation: Inner;Upper;Left Wound Description (Comments): Wound Type:: Agree With My Assessment? Yes 12/18/20 1600 Wound Dressing Status Open to air 12/18/20 0800 Wound Securement / Protective Device Rina wrap 12/17/20 0800 Wound Drainage Amount None 12/18/20 0800 Wound Base Assessment [place];Intact;Dry 12/18/20 0800 Surrounding Skin Assessment Warm;Dry;Intact 12/18/20 0800 Wound Site Closure Open to Air 12/18/20 0800 Number of days: 2 Wounds 12/17/20 1333 Surgical Incision Right;Medial (Active) 12/17/20 1333 Wound Type: Surgical Incision Pressure Injury Stages: Pressure Injury Present On Inpatient Admission: Wound/Pressure Injury Orientation: Right;Medial Wound Description (Comments): Wound Type:: Agree With My Assessment? Yes 12/18/20 1600 Wound Dressing Status Intact 12/18/20 0800 Wound Dressing and / or Treatment Gauze 12/18/20 0800 Wound Drainage Amount None 12/18/20 0800 Wound Base Assessment Dressing intact, base not assessed 12/18/20 0800 Surrounding Skin Assessment Dry;Warm;Intact 12/18/20 0800 Wound Site Closure Wound Adhesive Bandage 12/18/20 0800 Number of days: 1 Elver Puga MD Service Pager: # [phone] * Sis Hopper, PT - 12/18/2020 2:33 PM CDT PHYSICAL THERAPY RE-ASSESSMENT Name: Carli Koroma : 1945 Age: [age] y.o. Admission Date: 12/07/2020 LOS: 11 days Mobility Patient Turn/Position: Chair Progressive Mobility Level: Walk in hallway Distance Walked (feet): 40 ft Level of Assistance: Assist X2 Assistive Device: Walker Time Tolerated: 11-30 minutes Activity Limited By: Fatigue;Weakness Subjective Significant hospital events: 75yo female who presented to OSH for shortness of air. She underwent cardiac catheterization for NSTEMI and was found to have kiana re multivessel CAD. An IABP was placed, significant leak from her IABP and she w as transferred to without IABP. s/p 2v CABG 12/16. 12/17-extubated; IABP remov al; Acute loss in RLL pulses following IABP removal, s/p thrombectomy via poplit eal exposure by vascular. Mental / Cognitive Status: Alert;Oriented;Cooperative;Follows Commands Persons Present: Nursing Staff;Daughter Pain: Patient complains of pain;Patient does not rate pain Pain Location: Post-surgical Pain Description: Aching Pain Interventions: Patient agrees to participate in therapy Comments: Room air. Precautions: Sternal Precautions Comments: Chest tube x1, external pacemaker, [place]. Ambulation Assist: Independent Mobility in Community without Device Patient Owned Equipment: Single Point Cane Home Situation: Lives with Family Type of Home: House Entry Stairs: 3-5 Stairs In-Home Stairs: No Stairs ROM LE ROM: WFL Strength Overall Strength: Generalized Weakness Bed Mobility/Transfer Bed Mobility: Supine to Sit: Minimal Assist;x2 People Transfer Type: Sit to/from Stand Transfer: Assistance Level: To/From;Bed;Bed Side Chair;Minimal Assist;x2 People Transfer: Assistive Device: Hand Hold Assist Transfers: Type Of Assistance: Verbal Cues;To Maintain Precautions;For Balance;F or Strength Deficit;For Safety Considerations End Of Activity Status: Up in Chair;Nursing Notified;Instructed Patient to Reque st Assist with Mobility;Instructed Patient to Use Call Light Balance Sitting Balance: Static Sitting Balance;Dynamic Sitting Balance;No UE Support;St andby Assist Standing Balance: Static Standing Balance;Dynamic Standing Balance;2 UE support; Minimal Assist;of 1st Person;Standby Assist;of 2nd Person Gait Gait Distance: 40 feet Gait: Assistance Level: Minimal Assist;x2 People;Management of Lines;Safety Cons iderations Gait: Assistive Device: Roller Walker Gait: Descriptors: Decreased foot clearance RLE;Decreased foot clearance LLE;Pac e: Slow;Forward trunk flexion;Step-To Gait;No balance loss Activity Limited By: Complaint of Fatigue;Weakness Education Persons Educated: Patient;Family Patient Barriers To Learning: None Noted Teaching Methods: Verbal Instruction Patient Response: Verbalized Understanding;More Instruction Required Topics: Plan/Goals of PT Interventions;Use of Assistive Device/Orthosis;Mobility Progression;Precautions;Safety Awareness;Up with Assist Only;Importance of Incr easing Activity;Ambulate With Nursing;Recommend Continued Therapy Assessment/Progress Impaired Mobility Due To: Pain;Post Surgical Changes;Post Surgical Precautions Assessment/Progress: Should Improve w/ Continued PT Comments: Patient is now s/p CABG (12/16) and s/p RLE thrombectomy (12/17) and cur rently in the ICU. Re-Assessment completed this date. Patient able to progress t o short-distance hallway ambulation with Ax2 and encouragement to progress dista nce. RN present to assist with line managemnet as well as monitor vitals which r emained WFL throughout. Will continue to benefit from ongoing PT. AM-PAC 6 Clicks Basic Mobility Inpatient Turning from your back to your side while in a flat bed without using bed rails: A Little Moving from lying on your back to sitting on the side of a flatbed without using bedrails : A Little Moving to and from a bed to a chair (including a wheelchair): A Little Standing up from a chair using your arms (e.g. wheelchair, or bedside chair): A Little To walk in hospital room: A Little Climbing 3-5 steps with a railing: Total Raw Score: 16 Standardized (T-scale) Score: 38.32 Basic Mobility CMS 0-100%: 47.12 CMS G Code Modifier for Basic Mobility: CK Goals Goal Formulation: With Patient Time For Goal Achievement: 5 days, To, 7 days Patient Will Go Supine To/From Sit: Independently, Ongoing Patient Will Transfer Bed/Chair: New Goal, w/ Stand By Assist Patient Will Transfer Sit to Stand: Independently, Ongoing Patient Will Ambulate: Greater than 200 Feet, w/ Walker, Independently, Ongoing Patient Will Go Up / Down Stairs: New Goal, 3-5 Stairs, w/ Minimal Assist Plan Treatment Interventions: Mobility Training;Strengthening;Endurance Training Plan Frequency: 5 Days per Week PT Plan for Next Visit: Progress bed mobility, progress ambulation with RW PT Discharge Recommendations Recommendation: Currently patient requires inpatient level of care. However, typ [facility] progression for patient condition would anticipate home with assistance at time of discharge. Therapist: [place]is [place] D[place] [id number] Date: 12/18/2020 * Musa Salinas MD - 12/18/2020 1:50 PM CDT She is awake and alert sitting up in a chair. Right leg dressing intact. She h as good dorsalis pedis pulse in both feet. Minimal lower extremity swelling. She is doing well following coronary artery bypass graft as well as right poplit eal and tibial artery thrombectomy. Continue supportive care. We will follow w ith you. 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 I provided or personally directed critical care services including Ventila tor Management, Invasive Hemodynamic Management, Management of Cardiac Support I nfusions, Management of Vasogenic Shock, Management of Cardiogenic Shock, Compre hensive Pain Management and Complex Fluid & Electrolyte Managementand the patient is at risk for life threatening deterioration necessitating complex medical decision making and ongoing provision of ICU care. Critical Care Time:46minutes Yohana Hester MD 75yo females/p CABGx2, IABP placement. H/o CAD, HTN, NSTEMI, HFrEF 10-15%, D M. She underwent RLE thrombectomy on POD 1 after IABP pull. Neuro: Prn pain meds; TUGBOAT OPERATOR nathanael low dose Cardiac: Wean cardene for MAP <90mmHg. Wean epi for MAP>65mmHg and CI >2. Maintain milrinone 0.25 Pulmonary:I/S, OOB FEN: AAT ID:Monitor WBC and for fever Renal: Monitor Cr and UOP. Lasix BID for even to neg 500cc Heme: Monitor H/H Endo: SSI Prophylaxis: HOB>40, PPI, DVT prophylaxis when able __ Subjective: Carli Koroma is a 75 y.o. female. Significant event: RLE pulses. Objective: Medications: Scheduled Meds:acetaminophen (TYLENOL EXTRA STRENGTH) tablet 1,000 mg, 1,000 mg, Oral, Q6H while awake allopurinoL (ZYLOPRIM) tablet 100 mg, 100 mg, Oral, QDAY amiodarone (CORDARONE) tablet 400 mg, 400 mg, Oral, BID aspirin chewable tablet 81 mg, 81 mg, Oral, QDAY ezetimibe (ZETIA) tablet 10 mg, 10 mg, Oral, QHS furosemide (LASIX) injection 20 mg, 20 mg, Intravenous, BID(02-21) gabapentin (NEURONTIN) capsule 300 mg, 300 mg, Oral, Q8H insulin aspart (U-100) (NOVOLOG FLEXPEN U-100 INSULIN) injection PEN 0-12 Units, 0-12 Units, Subcutaneous, ACHS () lidocaine (LIDODERM) 5 % topical patch 1 patch, 1 patch, Topical, QDAY metoprolol tartrate tablet 12.5 mg, 12.5 mg, Oral, BID polyethylene glycol 3350 (MIRALAX) packet 17 g, 1 packet, Oral, BID rosuvastatin (CRESTOR) tablet 10 mg, 10 mg, Oral, Q72H* senna/docusate (SENOKOT-S) tablet 2 tablet, 2 tablet, Oral, BID Continuous Infusions: milrinone (PRIMACOR) 20 mg/D5W 100 mL infusion 0.25 mcg/kg/min (12/18/20 071 0) PRN and Respiratory Meds:[START ON 12/21/2020] acetaminophen Q6H PRN OR [STAR T ON 12/21/2020] acetaminophen Q6H PRN, alum/mag hydroxide/simeth Q4H PRN, bisaco dyL QDAY PRN, fentaNYL citrate PF Q2H PRN, hydrALAZINE Q6H PRN, lidocaine PF PRN , magnesium sulfate PRN OR magnesium oxide PRN, milk of magnesia (CONC) QDAY PRN, nalOXone PRN, ondansetron Q6H PRN OR ondansetron (ZOFRAN) IV Q6H PRN, potassium chloride SR PRN OR potassium chloride PRN OR potassium chlorid e in water PRN, traMADoL Q6H PRN Vital Signs: Last Filed Vital Signs: 24 Hour Ra nge ABP: 138/51 (12/18 1400) Temp: 36.7 C (98.1 F) (12/18 0800) Pulse: 88 (12/18 1400) Respirations: 20 PER MINUTE (12/18 1400) SpO2: 96 % (12/18 1399) ABP: (118-160)/(47-72) Temp: [36.7 C (98.1 F)-37.8 C (100 F)] Pulse: [86-100] Respirations: [8 PER MINUTE-21 PER MINUTE] SpO2: [92 %-100 %] Intensity Pain Scale (Self Report): 7 (12/18/20 1400) Vitals: 12/16/20 0600 12/16/20 0621 12/17/20 0500 Weight: 58.1 kg (128 lb) 58.1 kg (128 lb) 56.7 kg (125 lb) Critical Care Vitals: [place] SVI (Calculated): (!) 23 (12/18/201199) SVRI (Calculated): (!) 3048 (12/18/201199) SQI: 4 (12/18/20 0900) ICP Monitoring: PA Catheter: PA Catheter Only PA Pressure: (!) 35/13 (12/18/201199) PA Mean (mm Hg): (!) 21 mm Hg (12/18/201199) CO: (!) 3.8 (12/18/201199) Cardiac Output Method: Continuous (12/17/20 1900) CI: (!) 2.1 (12/18/201199) SVR (Calculated): (!) 1726 (12/18/201199) SVRI (Calculated): (!) 3048 (12/18/201199) SV (Calculated): (!) 43 (12/18/201199) SVI (Calculated): (!) 23 (12/18/201199) Hemodynamics/Oxycalcs: Hemodynamics/Oxycalcs Device Type: ROLL FORMING SUPERVISOR PA Catheter (12/18/20 06) PA Pressure: (!) 35/13 (12/18/201199) PA Mean (mm Hg): (!) 21 mm Hg (12/18/201199) CVP: (!) 12 MM HG (12/18/201199) CO: (!) 3.8 (12/18/201199) Cardiac Output Method: Continuous (12/17/20 1900) CI: (!) 2.1 (12/18/201199) SvO2 (%): (!) 55 % (12/18/20 09) SQI: 4 (12/18/20 09) SVR (Calculated): (!) 1726 (12/18/201199) SVRI (Calculated): (!) 3048 (12/18/201199) RVSWI (Calculated): (!) 3 (12/18/201199) SV (Calculated): (!) 43 (12/18/201199) SVI (Calculated): (!) 23 (12/18/201199) RVEF: (!) 23 % (12/18/201199) EDV: (!) 193 (12/18/201199) EDVI: (!) 104 (12/18/201199) Intake/Output Summary: (Last 24 hours) Intake/Output Summary (Last 24 hours) at 12/18/2020 1436 Last data filed at 12/18/2020 1400 Gross per 24 hour Intake 2171.68 ml Output 1828 ml Net 343.68 ml Lab Review: Pertinent labs reviewed Point of Care Testing: (Last 24 hours): Glucose: (!) 131 (12/18/20 0256) POC Glucose (Download): (!) 189 (12/18/20 1057) Radiology and Other Diagnostic Procedures Review: Pertinent radiology reviewed. Yohana Hester MD Developmental Behavioral Physician Anesthesiology and Critical Care [phone] * Som Pratt, PREETHI - 12/18/2020 10:16 AM CDT 0945 Pt walked from chair to hallway with max assist x2. Pt reported feeling a l ittle dizzy but feels like it has more to do with not having her eyeglasses, whi ch are at home. VSS throughout. Pt safely helped back to bed so med chest tubes can be removed. * Candace Mansfield - 12/18/2020 10:01 AM CDT [facility] Nurse Note: Admit Date: 12/07/2020 Reason for visit: [facility] Nurse referral Synopsis of visit: I met with pt, daughter (Sandra), and son (Parker). Family nayla ked about pt being here for over a week before surgery and the difficulty of pt living over 2 hours away. Her spouse is not comfortable driving to [place], so he has been to see pt one time. Pt is Anabaptist and said that she was recently baptized by her son, Parker, who is an Elder in his cheondoism. Being baptized was important for pt and seems to bring her comfort as she deals with her current situation. Pt's spouse and [facility] were baptized at the same time. Pt does not have an affiliation with a cheondoism. Pt said that many people are praying for her, which is meaningful. I listened actively, providing support and guiding dialogue about pt's current s ituation and her toni. I acknowledged the difficulty of her current situation a nd affirmed her spiritual health, especially her decision to be baptized recentl y. I also affirmed the closeness of this family and their care for each other. I offered a blessing for pt's continued recovery, as well as assurance of continu ed support and prayer. Aitchbone Breaker will continue to follow for spiritual and emot ional support. The spiritual care team is available as needed, 28/12, through the [employer] ([phone]). For a response within 24 hours, please submit an order in O2 fo grace a optometric tech consult. Date/Time: User: 12/18/2020 10:02 AM Candace Mansfield * Merly Seals, SHOE STAINER-STRAIGHTENER HAND - 12/18/2020 9:49 AM CDT Cardiothoracic Surgery Critical Care Progress Note Carli Koroma Today's Date: 12/18/2020 Admission Date: 12/07/2020 LOS: 11 days 12/16/2020 Procedures: 1. CABG x 2 with COFFMAN to LAD and SV to OM1 (CPT 97692, 74069) 2. Endoscopic Vein [place] (CPT 68506) 3. Right femoral arterial intraaortic balloon pump placement 4. Transesophageal echocardiography 12/17/2020 Procedures: Thrombus involving the popliteal and anterior tibial arteries. Thrombectomy perf ormed with 3Fr Kasia balloon with return of distal pulses. 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 (HCC) NSTEMI, initial episode of care ([facility]) Essential hypertension Hyperlipidemia NYHA class 2 acute on chronic systolic heart failure ([facility]) Ischemic cardiomyopathy Type 2 diabetes mellitus ([facility]) Cardiogenic shock ([facility]) On intra-aortic balloon pump assist Hypokalemia Ischemia of right lower extremity Vasogenic shock ([facility]) Acute blood loss anemia Assessment/Plan: Neuro Alert and oriented, pain controlled. Continue scheduled APAP. Increase gabapentin to 300 mg Q8H. CV SR with BBB rate 80-90's. Epicardial wires in place and on backup rate. B P 120-140/50 (71-87). MAP goal 65-90. Stop cardene gtt. Continue epi 0.03 (slow wean off today) and milrinone 0.25 for inotrope support. CI 2.1-2.4, CVP 8-12, P AP 32/11. IABP pulled 12/17. Cont bASA and statin q 72 hrs. 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 Int ra op AIDAN LVEF 20% on epi 0.1 mcg/kg/min. Findings: Thrombus involving the popliteal and anterior tibial arteries. Thrombectomy perf ormed with 3Fr Kasia balloon with return of distal pulses. Vascular: s/p R popliteal thrombectomy for acute thrombus following IABP removal . Pedal pulses restored and pulses now easily palpable. No need for AC per vascu lar surgery. Appreciate vascular surgery assistance. Resp Daily CXR bedside interpretation: lungs expanded, mild congestion w ith small left pleural effusion; will review radiology report. 1 L NC, wean O2. Cont IS, aggressive pulm toilet. Chest tubes: remove mediastinals today, maintai n pleurals. Renal Baseline sCr. 0.83. Scr today 0.68. Net +805 ml/24 hours. Schedule las ix 20 mg IV BID. Monitor UOP. Monitor BMP. GI - ADAT, continue post op bowel regimen. ID Afebrile. Wbc 21->11-->17. Continue post-op abx. Heme Hgb 7.7, platelets 150, Monitor cbc. Continue foot pumps for DVT proph ylaxis. FEN replace Mg and K to minimize the risk of cardiac arrhythmias. Hgb A1C 5. 9%, MDCF. Activity Pt up to chair today, should ambulate in halls with nursing and car diac rehab TID. Disposition: Plan as above, continue ICU care. I have seen, personally fully evaluated, and discussed patient with critical car e attending Dr. Yohana Hester and the cardiothoracic surgeon. The patient is crit ically ill and at risk for life threatening deterioration. I spent 49 minutes (e xcluding time spent performing or supervising any procedures) providing and pers onally directing critical care services including hemodynamic monitoring and man agement, lab and radiology review, medication review and management, fluid and e lectrolyte management and coordination of care. Prophylaxis Review: Lines: Yes; Arterial Line; Indication: Frequent blood draws and Continuous BP monitoring; Location: Radial Central Line; Indication: Frequent blood draws and Hemodynamic monitoring; Type : Internal jugular Antibiotic Usage: No VTE: Mechanical prophylaxis; Foot pump Urinary Catheter: Yes; Retain [place] due to: Need for accurate Intake and Output Merly Seals APRN-YAYO CTS Intensive Care Pager [phone] 12/18/2020 Subjective: HPI: Carli Koroma is a 75 y.o. female who initially presented to outside hospit al in [place], [place] on 12/06/20 reporting chief complaint of chest pain, shortness of breath, nausea with diaphoresis. She was found to have elevated troponin with NSTEMI; went to clinical laboratory technician for IABP placement. Her IABP was placed to [facility] and de veloped a leak; therefore it was discontinued to prior to her transfer to [facility]. She was also found to have elevated BNP of927 with HFrEF (30%) on echocardiog erika. Past medical history includes HTN, HLD, DM 2, CKD II, neuropathy.She is n ow s/p CABG x [address] Webster on 12/16/20. 12/17: R IABP removal. Acute popliteal thrombus s/p thrombectomy with vascular burns rgery. Epi 0.06, milrinone 0.25. Work towards extubation. 12/18: epi @ 0.03 mcg/kg/min (slow wean to off), lasix 20 mg IV BID, d/c mediasti nal CTs, MDCF REVIEW OF SYSTEMS: Review of Systems Constitutional: Positive for malaise/fatigue. Negative for fever. Respiratory: Negative for shortness of breath. Cardiovascular: Positive for chest pain. Negative for palpitations and leg swell ing. Gastrointestinal: Negative for abdominal pain, nausea and vomiting. Musculoskeletal: Negative for falls. Neurological: Negative for dizziness, focal weakness and weakness. Psychiatric/Behavioral: The patient is not nervous/anxious and does not have ins omnia. Objective: Medications: Scheduled Meds:acetaminophen (TYLENOL EXTRA STRENGTH) tablet 1,000 mg, 1,000 mg, Oral, Q6H while awake amiodarone (CORDARONE) tablet 400 mg, 400 mg, Oral, BID aspirin chewable tablet 81 mg, 81 mg, Oral, QDAY ezetimibe (ZETIA) tablet 10 mg, 10 mg, Oral, QHS furosemide (LASIX) injection 20 mg, 20 mg, Intravenous, BID(9-17) gabapentin (NEURONTIN) capsule 300 mg, 300 mg, Oral, Q8H insulin aspart (U-100) (NOVOLOG FLEXPEN U-100 INSULIN) injection PEN 0-12 Units, 0-12 Units, Subcutaneous, ACHS (22) lidocaine (LIDODERM) 5 % topical patch 1 patch, 1 patch, Topical, QDAY polyethylene glycol 3350 (MIRALAX) packet 17 g, 1 packet, Oral, BID rosuvastatin (CRESTOR) tablet 10 mg, 10 mg, Oral, Q72H* senna/docusate (SENOKOT-S) tablet 2 tablet, 2 tablet, Oral, BID Continuous Infusions: EPINEPHrine (ADRENALIN) 4 mg in dextrose 5% (D5W) 250 mL IV drip (std conc) 0.02 mcg/kg/min (12/18/20 0838) milrinone (PRIMACOR) 20 mg/D5W 100 mL infusion 0.25 mcg/kg/min (12/18/20 071 0) sodium chloride 0.9 % infusion 30 mL/hr at 12/18/20 0016 PRN and Respiratory Meds:[START ON 12/21/2020] acetaminophen Q6H PRN OR [STAR T ON 12/21/2020] acetaminophen Q6H PRN, alum/mag hydroxide/simeth Q4H PRN, bisaco dyL QDAY PRN, fentaNYL citrate PF Q2H PRN, hydrALAZINE Q6H PRN, lidocaine PF PRN , magnesium sulfate PRN OR magnesium oxide PRN, milk of magnesia (CONC) QDAY PRN, nalOXone PRN, ondansetron Q6H PRN OR ondansetron (ZOFRAN) IV Q6H PRN, potassium chloride SR PRN OR potassium chloride PRN OR potassium chlorid e in water PRN, traMADoL Q6H PRN Vital Signs: Last Filed Vital Signs: 24 Hour Ra nge Temp: 36.7 C (98.1 F) (12/18 0800) Pulse: 90 (12/19 0700) Respirations: 17 PER MINUTE (12/19 799) SpO2: 96 % (12/19 799) SpO2 Pulse: 90 (12/19 0700) ABP: (118-160)/(38-72) Temp: [36.7 C (98.1 F)-38 C (100.4 F)] Pulse: [86-100] Respirations: [8 PER MINUTE-20 PER MINUTE] SpO2: [92 %-100 %] Intensity Pain Scale (Self Report): 3 (12/18/20 0800) Vitals: 12/16/20 0600 12/16/20 0621 12/17/20 0500 Weight: 58.1 kg (128 lb) 58.1 kg (128 lb) 56.7 kg (125 lb) Intake/Output Summary: (Last 24 hours) Intake/Output Summary (Last 24 hours) at 12/18/2020 0949 Last data filed at 12/18/2020 0900 Gross per 24 hour Intake 2270.24 ml Output 1373 ml Net 897.24 ml Physical Exam: Neuro: A&Ox4 Cardiovascular: RRR no rub or murmur Respiratory: diminished bases GI: soft, NT, hypoactive BS Extremities: trace BLE edema, peripheral pulses palpable, R groin bruising - no hematoma, R thigh bruising (old) Incisions: Sternal incision dressing, dry and intact. No crepitus or sternal ins tability. RLE incision dressing in place Chest Tubes OUTPUT/24 HOURS AIR LEAK PRESENT 24+32 fr 180 mL no 24+32 fr 240 ml no Artificial airway: None Vent weaning trial: Not applicable LABS: Recent Labs 12/16/20 0533 12/16/20 1230 12/16/20 1655 12/17/20 0214 12/17/20 1550 12/18/20 0256 NA 138 142 -- 143 145 141 K 3.8 3.3* 4.4 4.2 4.7 4.7 CL 103 108 -- 113* 114* 110 CO2 24 22 -- 22 22 21 GAP 11 12 -- 8 9 10 BUN 17 14 -- 13 13 16 CR 0.69 0.84 -- 0.83 0.70 0.68 GLU 149* 210* -- 110* 139* 131* CA 10.2 8.5 -- 8.7 8.6 8.5 ALBUMIN 3.8 -- -- -- -- -- MG -- 2.7* -- 2.6 -- 2.4 Recent Labs 12/15/20 1326 12/15/20 1847 12/16/20 0533 12/16/20 1230 12/17/20 0214 12/17/20 1550 12/18/20 0256 WBC -- -- 8.2 21.8* 11.8* 15.1* 17.0* HGB -- -- 12.4 9.7* 8.7* 8.0* 7.7* HCT -- -- 35.8* 28.2* 25.4* 24.2* 22.2* PLTCT -- -- 234 227 172 157 150 INR -- -- 1.2 1.2 -- -- -- PTT 50.8* 41.1* 117.1* 28.5 -- -- -- AST -- -- 21 -- -- -- -- ALT -- -- 14 -- -- -- -- ALKPHOS -- -- 62 -- -- -- -- Estimated Creatinine Clearance: 63.1 mL/min (based on SCr of 0.68 mg/dL). Vitals: 12/16/20 0600 12/16/20 0621 12/17/20 0500 Weight: 58.1 kg (128 lb) 58.1 kg (128 lb) 56.7 kg (125 lb) Recent Labs 12/17/20 1740 12/17/20 1846 PHART 7.37 7.38 PO2ART 141* 131* Radiology and Other Diagnostic Procedures Review: Reviewed * Abhinav Major MD - 12/18/2020 6:24 AM CDT 75F NSTEMI, IABP c/b bleeding s/p 2v CABG 12/16 Acute loss in RLL pulses following IABP removal, s/p thrombectomy via popliteal exposure by vascular yesterday. Intact pulses this morning, no clinical evidence of compartment syndrome. 90s in sinus, MAP 70-80s. CI >2, CVP 8-10. PAP 30/10s. On epi 0.04, mil 0.25, cardene on and off. UOP 20-70 ml/hr, 803 total, chest tube 180/240, net +780 ml CXR stable, atelectasis, small left effusion. Labs hgb 7.7, platelet 150, cr 0.68. mixed venous 55.4. Keep PAC while weaning epi. Wean to off today. Keep milrinone. D/c mediastinal chest tubes, keep pleural another day. Hold BB. Aspirin and statin on board ICU Abhinav Major MD * Hoa Arias RN - 12/18/2020 4:09 AM CDT No neuro changes. Pt dangled and stood at 2100. SBP ~80s, pt c/o mild dizziness, recovered quickly. SRcBBB ~90s, SBP ~130s with intermittent use of cardene for SBP <140. Distal pulses easily palpable in BLEs. CI >2, PAPs ~30s/10s, CVP ~9 Lungs clear/dim, tolerating 1L NC [place] with marginal UOP. Ariadna Cardozo APRN notified. CTs with minimal output Dressings/incisions CDI Gtts: Epi @ 0.03 Milrinone cardene Insulin NS carrier * Hoa Arias RN - 12/17/2020 9:06 PM CDT Assumed care at 1930. Pt A&Ox4. AMEZCUA, PERR, afebrile. SRcBBB ~90s, SBP ~130s with cardene. Distal pulses easily palpable in BLEs. CI >2, PAPs ~20s/10s, CVP ~8 Lungs clear/dim, tolerating 2L NC. IS encouraged [place] with AUOP CTs with minimal output Dressings/incisions CDI Gtts: Epi Milrinone cardene Insulin NS carrier * Blue Terry RT - 12/17/2020 6:38 PM CDT RT Adult Assessment Note NAME:Carli Koroma :1945 AGE: 75 y.o. ADMISSION DATE: 12/07/2020 DAYS ADMITTED: LOS: 10 days RT Treatment Plan: Protocol Plan: Procedures PEP Therapy: Q4h while awake & PRN PAP: Q4h while awake & PRN Oxygen/Humidity: O2 to keep SpO2 > 92%, if not on any RT modality, D/C protocol if greater than 24 hours on room air SpO2: BID & PRN Comment: IS with RN Additional Comments: Impressions of the patient: pt. doing well; recently extubated; currently requir ing 2lpm oxygen; LS mostly clear and mildly diminished; adequate cough observed; pt. alert and oriented Intervention(s)/outcome(s): standard RT CTS Protocol therapies to be initiated i ncluding PEP/PAP/IS as instructed Patient education that was completed: pt. encouraged to practice deep breathing and coughing Recommendations to the care team: none at this time Vital Signs: Pulse: 98 RR: 12 PER MINUTE SpO2: 100 % O2 Device: Cannula Liter Flow: (S) 2 Lpm O2%: 40 % Breath Sounds: Respiratory Effort: Non-Labored * Mulu Cuevas, PREETHI - 12/17/2020 6:21 PM CDT Extubated to 2 L NC w/out complication. A/O x4. FC. Denies pain. Sensation to RL E is at baseline per pt report. Gtts: Epi @ .06 Mil @ .25 Nitro @ .3 Insulin @ 1.5 NS carrier @ 30 * Mulu Cuevas, PREETHI - 12/17/2020 3:57 PM CDT Pt returned from OR @ 1500. Palpable pulses to BLE's, warm to touch. SR rate 90's. SBP 160's--> low dose nitro started. PA's 30/teens CVP 10-12 CI 1.8-2 SVO2 50%. Labs pending. FC on all extremities. Sedation decreased. Will plan to work towards extubation. Gtts: Epi @ .08 Mil @ .25 Nitro @ .3 Insulin @ 1.5 fent @ 25 Dex @ .5 NS carrier @ 30 * Rosalind Bryson APRN-YAYO - 12/17/2020 3:46 PM CDT Cardiothoracic Surgery Critical Care Progress Note Carli Ga Today's Date: 12/17/2020 Admission Date: 12/07/2020 LOS: 10 days 12/16/2020 Procedures: 1. CABG x 2 with COFFMAN to LAD and SV to OM1 (CPT 92987, 48024) 2. Endoscopic Vein [place] (CPT 21854) 3. Right femoral arterial intraaortic balloon pump placement 4. Transesophageal echocardiography 12/17/2020 Procedures: Thrombus involving the popliteal and anterior tibial arteries. Thrombectomy perf ormed with 3Fr Kasia balloon with return of distal pulses. 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 ([facility]) NSTEMI, initial episode of care ([facility]) Essential hypertension Hyperlipidemia NYHA class 2 acute on chronic systolic heart failure ([facility]) Ischemic cardiomyopathy Type 2 diabetes mellitus ([facility]) Cardiogenic shock ([facility]) On intra-aortic balloon pump assist Hypokalemia Ischemia of right lower extremity Vasogenic shock ([facility]) Assessment/Plan: Neuro Continue fentanyl gtt and precedex gtt for sedation and analgesia. Con tinue scheduled APAP. PRN oxy once extubated. 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 Epicardial wires in place and on backup rate. MAP goal > 65. Continue levo for MAP goal. Continue epi 0.06 and milrinone 0.25 for inotrope support. IABP pulled this am. Cont bASA and statin q 72 hrs. Resume zetia today. Intra op AIDAN LVEF 20% on epi 0.1 mcg/kg/min. Findings: Thrombus involving the popliteal and anterior tibial arteries. Thrombectomy perf ormed with 3Fr Kasia balloon with return of distal pulses. Vascular: s/p R popliteal thrombectomy for acute thrombus following IABP removal . Pedal pulses restored and pulses now easily palpable. No need for AC per vascu lar surgery. Appreciate vascular surgery assistance. Resp Work towards extubation when flat bedrest is over after IABP pull. Semaj y CXR bedside interpretation: will review radiology report. Wean O2. Cont IS , aggressive pulm toilet. Chest tubes in place, monitor output. Renal Baseline sCr. 0.83. Monitor UOP. Monitor BMP. GI - ADAT, continue post op bowel regimen. ID Afebrile. Wbc 21->11. Continue post-op abx. Heme Hgb 9->8, platelets 172, Monitor cbc. Continue foot pumps for DVT prophylaxis. FEN replace Mg and K to minimize the risk of cardiac arrhythmias. Insulin gt t per Modified [place] Protocol. Activity Pt up to chair today, should ambulate in halls with nursing and car diac rehab TID. Disposition: Plan as above, continue ICU care. I have seen, personally fully evaluated, and discussed patient with critical car e attending Dr. Yohana Hester and the cardiothoracic surgeon. The patient is crit ically ill and at risk for life threatening deterioration. I spent 74 minutes (e xcluding time spent performing or supervising any procedures) providing and pers onally directing critical care services including hemodynamic monitoring and man agement, lab and radiology review, medication review and management, fluid and e lectrolyte management and coordination of care. Prophylaxis Review: Lines: Yes; Arterial Line; Indication: Frequent blood draws and Continuous BP monitoring; Location: Radial Central Line; Indication: Frequent blood draws and Hemodynamic monitoring; Type : Internal jugular Antibiotic Usage: No VTE: Mechanical prophylaxis; Foot pump Urinary Catheter: Yes; Retain [place] due to: Need for accurate Intake and Output TRISTEN Us [facility] Intensive Care Pager [phone] 12/17/2020 Subjective: HPI: Carli Koroma is a 75 y.o. female who initially presented to outside hospit al in [place], [place] on 12/06/20 reporting chief complaint of chest pain, shortness of breath, nausea with diaphoresis. She was found to have elevated troponin with NSTEMI; went to clinical laboratory technician for IABP placement. Her IABP was placed to [facility] and de veloped a leak; therefore it was discontinued to prior to her transfer to [facility]. She was also found to have elevated BNP of927 with HFrEF (30%) on echocardiog erika. Past medical history includes HTN, HLD, DM 2, CKD II, neuropathy.She is n ow s/p CABG x [address] Webster on 12/16/20. 12/17: R IABP removal. Acute popliteal thrombus s/p thrombectomy with vascular burns rgery. Epi 0.06, milrinone 0.25. Work towards extubation. REVIEW OF SYSTEMS: Review of systems not obtained from patient due to patient factors. Objective: Medications: Scheduled Meds:acetaminophen (TYLENOL EXTRA STRENGTH) tablet 1,000 mg, 1,000 mg, Oral, Q6H while awake amiodarone (CORDARONE) tablet 400 mg, 400 mg, Oral, BID aspirin chewable tablet 81 mg, 81 mg, Oral, QDAY ezetimibe (ZETIA) tablet 10 mg, 10 mg, Oral, QHS gabapentin (NEURONTIN) capsule 100 mg, 100 mg, Oral, Q8H pantoprazole (PROTONIX) injection 40 mg, 40 mg, Intravenous, QDAY(21) Or pantoprazole DR (PROTONIX) tablet 40 mg, 40 mg, Oral, QDAY(21) polyethylene glycol 3350 (MIRALAX) packet 17 g, 1 packet, Oral, BID rosuvastatin (CRESTOR) tablet 10 mg, 10 mg, Oral, Q72H* senna/docusate (SENOKOT-S) tablet 2 tablet, 2 tablet, Oral, BID Continuous Infusions: dexMEDEtomidine (PRECEDEX) 400 mcg/NS 100 ml IV drip (premade) 0.5 mcg/kg/hr (12/17/20 1540) EPINEPHrine (ADRENALIN) 4 mg in dextrose 5% (D5W) 250 mL IV drip (std conc) 0.06 mcg/kg/min (12/17/20 1500) fentaNYL (SUBLIMAZE) 1000 mcg/100 mL NS IV drip (std conc)(premade) 25 mcg/ hr (12/17/20 1540) insulin regular 100 units/NS 100 mL IV drip (premade) 1.5 Units/hr (12/17/20 1516) milrinone (PRIMACOR) 20 mg/D5W 100 mL infusion 0.25 mcg/kg/min (12/17/20 150 0) nitroGLYCERIN 50 mg/D5W 250 mL infusion 0.3 mcg/kg/min (12/17/20 1600) norepinephrine (LEVOPHED) 4 mg/250 mL NS IV drip (std conc)(premade) Stopp ed (12/17/20 1434) sodium chloride 0.9 % infusion 30 mL/hr at 12/17/20 1500 vasopressin (VASOSTRICT) 20 Units in sodium chloride 0.9% (NS) 100 mL IV dri p (std conc) Stopped (12/16/20 1250) PRN and Respiratory Meds:[START ON 12/21/2020] acetaminophen Q6H PRN OR [STAR T ON 12/21/2020] acetaminophen Q6H PRN, alum/mag hydroxide/simeth Q4H PRN, bisaco dyL QDAY PRN, fentaNYL citrate PF Q1H PRN, heparin 5,000 units in LR 500 mL irri gation (OR) Intra-procedure Med, hydrALAZINE Q6H PRN, lidocaine PF PRN, magnesiu m sulfate PRN OR magnesium oxide PRN, milk of magnesia (CONC) QDAY PRN, nalO Xone PRN, ondansetron Q6H PRN OR ondansetron (ZOFRAN) IV Q6H PRN, oxyCODONE Q4H PRN, potassium chloride SR PRN OR potassium chloride PRN OR potassiu m chloride in water PRN Vital Signs: Last Filed Vital Signs: 24 Hour Ra nge Temp: 37.4 C (99.3 F) (12/17 1600) Pulse: 97 (12/17 1614) Respirations: 15 PER MINUTE (12/17 1614) SpO2: 100 % (12/17 1614) SpO2 Pulse: 97 (12/17 1614) ABP: (98-155)/(31-71) Temp: [37 C (98.6 F)-38.2 C (100.8 F)] Pulse: [94-124] Respirations: [15 PER MINUTE-21 PER MINUTE] SpO2: [97 %-100 %] Vitals: 12/16/20 0600 12/16/20 0621 12/17/20 0500 Weight: 58.1 kg (128 lb) 58.1 kg (128 lb) 56.7 kg (125 lb) Intake/Output Summary: (Last 24 hours) Intake/Output Summary (Last 24 hours) at 12/17/2020 1617 Last data filed at 12/17/2020 1600 Gross per 24 hour Intake 2511.23 ml Output 1639 ml Net 872.23 ml Physical Exam: Neuro: Sedated, PERRL Cardiovascular: RRR no rub or murmur Respiratory: diminished bases GI: soft, NT, hypoactive BS Extremities: trace BLE edema, peripheral pulses palpable, R groin bruising - no hematoma, R thigh bruising (old) Incisions: Sternal incision dressing, dry and intact. No crepitus or sternal ins tability. RLE incision dressing in place Chest Tubes OUTPUT/24 HOURS AIR LEAK PRESENT Mediastinal 725mL no Mediastinal Pleural Pleural Artificial airway: Endotracheal Tube Vent weaning trial: Per protocol LABS: Recent Labs 12/15/20 0439 12/16/20 0533 12/16/20 1230 12/16/20 1655 12/17/20 0214 NA 139 138 142 -- 143 K 4.2 3.8 3.3* 4.4 4.2 CL 102 103 108 -- 113* CO2 26 24 22 -- 22 GAP 04 17 12 -- 8 BUN 16 17 14 -- 13 CR 0.69 0.69 0.84 -- 0.83 GLU 154* 149* 210* -- 110* CA 9.8 10.2 8.5 -- 8.7 ALBUMIN 4.0 3.8 -- -- -- MG -- -- 2.7* -- 2.6 Recent Labs 12/14/20 2200 12/15/20 0439 12/15/20 1326 12/15/20 1847 12/16/20 0533 12/16/20 1230 12/17/20 0214 WBC -- 9.5 -- -- 8.2 21.8* 11.8* HGB -- 12.5 -- -- 12.4 9.7* 8.7* HCT -- 35.6* -- -- 35.8* 28.2* 25.4* PLTCT -- 237 -- -- 234 227 172 INR -- 1.2 -- -- 1.2 1.2 -- PTT 68.5* 99.7* 50.8* 41.1* 117.1* 28.5 -- AST -- 17 -- -- 21 -- -- ALT -- 12 -- -- 14 -- -- ALKPHOS -- 64 -- -- 62 -- -- Estimated Creatinine Clearance: 53.2 mL/min (based on SCr of 0.83 mg/dL). Vitals: 12/16/20 0600 12/16/20 0621 12/17/20 0500 Weight: 58.1 kg (128 lb) 58.1 kg (128 lb) 56.7 kg (125 lb) Recent Labs 12/17/20 02112/17/20 1550 PHART 7.40 7.38 PO2ART 159* 136* Radiology and Other Diagnostic Procedures Review: Reviewed * Dario Webster MD - 12/17/2020 1:13 PM CDT Hemodynamics improved and IABP removed. Following IABP removal, acute RLE limb i schemia, loss of pulses. Documentation of palpable pulses earlier this morning. RLE ultrasound with popliteal embolus. Discussed with Dr. Salinas and Dr. Guallpa, who have decided to take Ms. Koroma emergently to the OR for RLE embolectomy. T his was all discussed bedside with the patient's daughter who agreed with the pl an. * Rosalind Chaparro MD - 12/17/2020 1:08 PM CDT Heart Failure Progress Note Date of Service: 12/17/2020 Carli Koroma is a 75 y.o. y.o. female. 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 female who initially presented to outside hospital in [place], [place] on 12/06/20 reporting chief complaint of chest pain, shortness of b reath, nausea with diaphoresis. She was found to have elevated troponin with NST BONY; went to clinical laboratory technician for IABP placement. Her IABP was placed to [facility] and develop ed a leak; therefore it was discontinued to prior to her transfer to [facility]. She was also found to have elevated BNP of 927 with HFrEF (30%) on echocardiogram. P ast medical history includes HTN, HLD, DM 2, CKD II, neuropathy. She underwent two vessel CABG (with COFFMAN to LAD and RSVG to OM ) by Dr Webster on 12/16/20. Recommendations/Plan: 1. Inotrope/Vasopressor therapy: currently on: Epinephrine 0.06 mcg/kg/min and m ilrinone 0.25 mcg/kg/min, off NE Goal MAP: > 65 2. Diuretic therapy: none currently Goal CVP: <15 (Recent Trend: 8-10) 3. Critical Care Medications per CTS and Critical Care Team/Anesthesiology. 4. Insulin gtt per [place] protocol managed by Critical Care team and CTS. 5. Patient Stated Goal: intubated 6. Temporary pacing wires VVI 60 - important to maintain integrity of temp pacin g wires 7. IABP removed today At Discharge: 1. Baseline echo to be completed prior to discharge. 2. Follow Up: appointment with a member of the HF team within 7 calendar days of discharge. 3. Cardiac Rehab Pt seen and examined with Dr. Parker. Rosalind Chaparro MD Available on Voalte Assessment: Acute on chronic systolic HFrEF, EF: 30%. Major Complications or Comorbidities (LONGTERM): acute/ acute on chronic systolic and /or diastolic heart failure NYHA functional class III (marked limitation of physical activity - comfortable at rest, but less than ordinary activity causes symptoms of HF e.g., getting mariano ssed or standing from a sitting position), ACC Stage C (structural heart disease with prior or current symptoms of HF). She presents with signs of hypervolemia with left ventricular failure without s igns of low flow state. Admission BNP: 927 on 12/06 (OSH) Prior to admission diuretic regimen: None Intake/Output I/O last 24 hours: -+2.1L I/O entire stay: +971L Urine output/24 hours: 2104L Goal Dry Weight: ~128 lbs Guideline Based Heart Failure Therapies: GDMT TUGBOAT OPERATOR Changes BB Atenolol 100 mg po daily Metoprolol 25 mg in AM, 12.5 mg in PM 12/11 Toprol XL 25 mg qhs 12/16 held post op ACEI/ARB/ARNI Previously on Irbesartan *will consider low dose Losartan after s urgery SGLT-2 Inhibitor N/A *consider initiating in outpt setting Aldosterone Antagonist N/A 12/11 Starting Spironolactone 12.5 mg daily 12/13 increase suleman to 25 mg daily 12/16 held post op Hydralazine/Nitrate N/A Ivabradine N/A HRMT N/A *pt may benefit from BUS COMPANY MANAGER-D if EF does not improve with GDMT Anticoagulation for Afib/flutter N/A Cardiac Rehab Evaluation for LVEF <40% Will plan for upon discharge Diuretic Therapy Prior to admission dose N/A Given on admission 12/07 IV lasix 40 mg x1 Daily Dosing 12/08-12/15 Lasix 20 mg po daily 12/16 held post op Cardiomyopathy - likely secondary to ischemic etiology after recent VA - no TUGBOAT OPERATOR GDMT; will start with low dose Toprol XL and Spironolactone, consider l ow dose Losartan after surgery - pt may require BUS COMPANY MANAGER-D in outpt setting w/ LBBB on EKG NSTEMI, CAD - pt presented to OSH w/ NSTEMI; had IABP placed initially; transferred to [facility] for further management - 12/07 admit troponin >22.9>18.63>12.99>11.67>4/59>0.64 on 12/12 - CABG x 2 with COFFMAN to LAD and RSVG to OM on 12/16/[address] Jorge LÓPEZ - 12/08 lipid panel: Cholesterol 215, trigs 358, HDL 30, LDL 141 - no TUGBOAT OPERATOR statins; has failed atorvastatin and rosuvastatin 5 and 10 mg with repo rts of myalgia pain (resolved after stopping) consider trial of pravastatin 5-10 mg daily as lowest side effect profile and titrate up to highest tolerated dose - currently on rosuvastatin 10 mg Q 72 hours and zetia 10 mg daily > managed per primary team DM 2 - 12/07/20 HgbA1c 5.9 - TUGBOAT OPERATOR Janumet XR on hold during admission - Sliding scale Insulin while admitted - pt w/ mod amt neuropathy; takes gabapentin 300 mg 5x/day at home - currently receiving gabapentin 300 mg at noon, 600 mg at 1700, 600 mg qhs > managed per primary team CKD II - admit creatinine 0.71-->0.69 today (12/15) > daily labs per primary team Post-op Course of Events 12/16 IABP inserted post operatively, removed 12/17 Reason for Consultation: Evaluation and recommendations re: heart failure manag ement post CABG History of Present Illness: Carli Koroma is a 75 y.o. female who initially pres ented to outside hospital in [place], [place] on 12/06/20 reporting chief complaint o f chest pain, shortness of breath, nausea with diaphoresis. She was found to hav e elevated troponin with NSTEMI; went to clinical laboratory technician for IABP placement. Her IABP w as placed to [facility] and developed a leak; therefore it was discontinued to prior to her transfer to [facility]. She underwent two vessel CABG (with COFFMAN to LAD and RSVG to OM ) by Dr Webster on 12/16/20. She currently complains of Unable to respond, intubated post operatively. She currently denies unable to respond, intubated post operatively. Review of Systems: Unable to complete - intubated post operatively Objective: Allergies: Allergies Allergen Reactions Crestor [Rosuvastatin] MUSCLE PAIN Medications: Scheduled Meds:acetaminophen (TYLENOL EXTRA STRENGTH) tablet 1,000 mg, 1,000 mg, Oral, Q6H while awake amiodarone (CORDARONE) tablet 400 mg, 400 mg, Oral, BID aspirin chewable tablet 81 mg, 81 mg, Oral, QDAY gabapentin (NEURONTIN) capsule 100 mg, 100 mg, Oral, Q8H pantoprazole (PROTONIX) injection 40 mg, 40 mg, Intravenous, QDAY(21) Or pantoprazole DR (PROTONIX) tablet 40 mg, 40 mg, Oral, QDAY(21) polyethylene glycol 3350 (MIRALAX) packet 17 g, 1 packet, Oral, BID rosuvastatin (CRESTOR) tablet 10 mg, 10 mg, Oral, Q72H* senna/docusate (SENOKOT-S) tablet 2 tablet, 2 tablet, Oral, BID Continuous Infusions: dexMEDEtomidine (PRECEDEX) 400 mcg/NS 100 ml IV drip (premade) 1 mcg/kg/hr ( 12/17/20 1230) EPINEPHrine (ADRENALIN) 4 mg in dextrose 5% (D5W) 250 mL IV drip (std conc) 0.06 mcg/kg/min (12/17/20 0710) fentaNYL (SUBLIMAZE) 1000 mcg/100 mL NS IV drip (std conc)(premade) 150 mcg /hr (12/17/20 1300) insulin regular 100 units/NS 100 mL IV drip (premade) 1.5 Units/hr (12/17/20 0710) milrinone (PRIMACOR) 20 mg/D5W 100 mL infusion 0.25 mcg/kg/min (12/17/20 120 0) nitroGLYCERIN 50 mg/D5W 250 mL infusion Stopped (12/17/20 1020) norepinephrine (LEVOPHED) 4 mg/250 mL NS IV drip (std conc)(premade) Stopp ed (12/17/20 0000) sodium chloride 0.9 % infusion 30 mL/hr at 12/17/20 1056 vasopressin (VASOSTRICT) 20 Units in sodium chloride 0.9% (NS) 100 mL IV dri p (std conc) Stopped (12/16/20 1250) PRN and Respiratory Meds:[START ON 12/21/2020] acetaminophen Q6H PRN OR [STAR T ON 12/21/2020] acetaminophen Q6H PRN, alum/mag hydroxide/simeth Q4H PRN, bisaco dyL QDAY PRN, fentaNYL citrate PF Q1H PRN, hydrALAZINE Q6H PRN, lidocaine PF PRN , magnesium sulfate PRN OR magnesium oxide PRN, milk of magnesia (CONC) QDAY PRN, nalOXone PRN, ondansetron Q6H PRN OR ondansetron (ZOFRAN) IV Q6H PRN, oxyCODONE Q4H PRN, potassium chloride SR PRN OR potassium chloride PRN OR* * potassium chloride in water PRN Medications Prior to Admission Medication Sig Dispense Refill Last Dose allopurinoL (ZYLOPRIM) 100 mg tablet Take 100 mg by mouth daily. Take with f ood. Indications: treatment to prevent acute gout attack antiox #8/om3/dha/epa/lut/zeax (PRESERVISION AREDS 2 (OMEGA-3) PO) Take 1 ta blet by mouth daily. atenoloL (TENORMIN) 100 mg tablet Take 100 mg by mouth daily. Indications: h igh blood pressure gabapentin (NEURONTIN) 300 mg capsule Take 300 mg by mouth five times daily. SITagliptin-metformin (JANUMET XR) 100-1,000 mg tablet Take 1 tablet by mout h daily. Indications: type 2 diabetes mellitus Vital Signs: Last Filed Vital Signs: 24 Hour Range Temp: 38 C (100.4 F) (12/18 1199) Pulse: 99 (12/18 1199) Respirations: 20 PER MINUTE (12/18 1199) SpO2: 100 % (12/18 1199) SpO2 Pulse: 98 (12/18 1199) ABP: (95-154)/(18-65) Temp: [35.7 C (96.3 F)-38.2 C (100.8 F)] Pulse: [94-124] Respirations: [16 PER MINUTE-21 PER MINUTE] SpO2: [97 %-100 %] Hemodynamics: CO 2.8 CI 1.77 CVP 10 PAP 26/18 mean 21 SvO2 53% Physical Exam: General Appearance: thin, no distress, sedated and intubated Skin: warm and dry, pale Digits and Nails: no cyanosis or clubbing Neck Veins: JVP ~unable to see due to invasive linescm, HJR negative Chest Inspection: sternal incision/dressing C/D/I, chest tube sites with dressin g C/D/I Respiratory Effort: breathing comfortably, no respiratory distress Auscultation/Percussion: lungs clear to auscultation, no rales or rhonchi, no wh eezing Cardiac Rhythm: irregular rhythm and normal rate Cardiac Auscultation: S1, S2 not clearly heard no rub, no S3 gallop, no S4 falk p Murmurs: no murmur Radial Arteries: normal symmetric radial pulses Abdominal Aorta: no abdominal aortic bruit Pedal Pulses: normal symmetric pedal pulses Lower Extremity Edema: no lower extremity edema Peripheral Circulation: distal upper and lower extremities left is warm and well -perfused, right is cool Abdominal Exam: soft, non-tender, no masses, bowel sounds normal, Orientation: sedated and intubated Neurologic Exam:sedated and intubated Laboratory Review: CBC w/Diff Lab Results Component Value Date/Time WBC 11.8 (H) 12/17/2020 02:14 AM RBC 2.82 (L) 12/17/2020 02:14 AM HGB 8.7 (L) 12/17/2020 02:14 AM HCT 25.4 (L) 12/17/2020 02:14 AM MCV 89.8 12/17/2020 02:14 AM MCH 30.9 12/17/2020 02:14 AM MCHC 34.5 12/17/2020 02:14 AM RDW 13.9 12/17/2020 02:14 AM PLTCT 172 12/17/2020 02:14 AM MPV 7.7 12/17/2020 02:14 AM Lab Results Component Value Date/Time NEUT 55 12/16/2020 05:33 AM ANC 4.50 12/16/2020 05:33 AM LYMA 30 12/16/2020 05:33 AM ALC 2.40 12/16/2020 05:33 AM IMAN 11 12/16/2020 05:33 AM AMC 0.90 (H) 12/16/2020 05:33 AM EOSA 3 12/16/2020 05:33 AM AEC 0.30 12/16/2020 05:33 AM BASA 1 12/16/2020 05:33 AM ABC 0.00 12/16/2020 05:33 AM Chemistry Lab Results Component Value Date/Time NA 143 12/17/2020 02:14 AM K 4.2 12/17/2020 02:14 AM CL 113 (H) 12/17/2020 02:14 AM CO2 22 12/17/2020 02:14 AM GAP 8 12/17/2020 02:14 AM BUN 13 12/17/2020 02:14 AM CR 0.83 12/17/2020 02:14 AM GLU 110 (H) 12/17/2020 02:14 AM Lab Results Component Value Date/Time CA 8.7 12/17/2020 02:14 AM ALBUMIN 3.8 12/16/2020 05:33 AM TOTPROT 6.8 12/16/2020 05:33 AM ALKPHOS 62 12/16/2020 05:33 AM AST 21 12/16/2020 05:33 AM ALT 14 12/16/2020 05:33 AM TOTBILI 0.8 12/16/2020 05:33 AM GFR >60 12/17/2020 02:14 AM GFRAA >60 12/17/2020 02:14 AM Renal Function Lab Results Component Value Date/Time NA 143 12/17/2020 02:14 AM K 4.2 12/17/2020 02:14 AM CL 113 (H) 12/17/2020 02:14 AM CO2 22 12/17/2020 02:14 AM GAP 8 12/17/2020 02:14 AM BUN 13 12/17/2020 02:14 AM BUN 14 12/16/2020 12:30 PM BUN 17 12/16/2020 05:33 AM Lab Results Component Value Date/Time CR 0.83 12/17/2020 02:14 AM CR 0.84 12/16/2020 12:30 PM CR 0.69 12/16/2020 05:33 AM GLU 110 (H) 12/17/2020 02:14 AM CA 8.7 12/17/2020 02:14 AM ALBUMIN 3.8 12/16/2020 05:33 AM Lipid Profile INR Lab Results Component Value Date CHOL 215 (H) 12/08/2020 TRIG 358 (H) 12/08/2020 HDL 30 (L) 12/08/2020 LDL 141 (H) 12/08/2020 VLDL 72 12/08/2020 NONHDLCHOL 185 12/08/2020 Lab Results Component Value Date INR 1.2 12/16/2020 Chest X-Ray: 1. Mild bibasilar opacities, likely atelectasis. 2. Interval decrease in pulmonary edema. Tele/ECG: accelerated junctional with Vpacing intermittently Echocardiogram Details: Echo Results (Last 3 results in the past 3 years) Echo EF LVIDD LA Size IVS LVPW Rest PAP (12/13/20) 30 (12/13/20) 6.11 (12/13/20) 3.83 (12/13/20) 0.92 (12/13/20) 0.99 (12/10/20) 34 (12/10/20) 30 (12/10/20) 5.50 (12/10/20) 3.70 (12/10/20) 1.10 (12/10/20) 0.80 Rosalind Chaparro MD * Musa Salinas MD - 12/17/2020 1:05 PM CDT She is a 75 yo female with severe coronary disease for which she had CABG yester day. She had poor EF prompting use of IAOBP. Balloon pump removed earlier toda y. She was noted to have absent right pedal pulses. Arterial US showed right p opliteal and PT occlusion. Discussed with Dr. Webster. Plan urgent right poplit eal and tibial artery thrombectomy. Dr. White discussed with her daughter. To OR now. Musa Salinas MD * Mulu Cuevsa RN - 12/17/2020 11:49 AM CDT After IABP was pulled @ 1030. Manual pressure was held by sheath tech [id number]. P rior to d/c of IABP pt had palpable pulses +3 to BLE's. After removal I was unab le to palpate or doppler RLE pulses at 1100. Rosalind Torres APRN notified and came to b [facility]. RLE slightly cooler to touch. Able to palpate R fem & popliteal. Sheath tech called back to bedside to eval R groin site. Dressing CDI. Small amount of bruising but soft to touch w/out hematoma. Vascular Surgery at bedside. Stat RLE arterial US ordered. * Dario Webster MD - 12/17/2020 11:05 AM CDT Index 2.0. Epi 0.06. Making urine. Will wean and remove IABP. Extubate if doing well. Very slow epi wean. * Sis Hopper, PT - 12/17/2020 10:05 AM CDT PHYSICAL THERAPY NOTE Name: Carli Koroma : 1945 Age: [age] y.o. Admission Date: 12/07/2020 LOS: 10 days Patient is now s/p CABG however remains intubated with IABP in place, not approp riate for therapy intervention at this time. PT will plan to follow-up tomorrow and complete re-assessment as indicated. 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 I provided or personally directed critical care services including Ventilat or Management, Invasive Hemodynamic Management, Management of Cardiac Support In fusions, Management of Vasogenic Shock, Management of Cardiogenic Shock, Compreh ensive Pain Management and Complex Fluid & Electrolyte Management and the patient is at risk for life threatening deterioration necessitating complex medical decision making and ongoing provision of ICU care. Critical Care Time: 43 minutes Yohana Hester MD 75 yo female s/p CABGx2, IABP placement. H/o CAD, HTN, NSTEMI, HFrEF 10-15%, DM Neuro: Prn pain meds; precedex and fentanyl for overnight RASS -2 goal. TUGBOAT OPERATOR nathanael low dose Cardiac: IABP 1:2 weaning trial underway. Maintain MAP >65mmHg with Vaso, then NE. Wean epi for MAP>65mmHg and CI >2. Maintain milrinone 0.25 Pulmonary: MMV - plan for extubation after IABP removed FEN: NPO ID: Monitor WBC and for fever Renal: Monitor Cr and UOP Heme: Monitor H/H Endo: SSI Prophylaxis: HOB>40, PPI, DVT prophylaxis when able __ Subjective: Carli Koroma is a 75 y.o. female. Overnight Events: Significant event: hope to pull IABP if numbers favorable. Objective: Medications: Scheduled Meds:acetaminophen (TYLENOL EXTRA STRENGTH) tablet 1,000 mg, 1,000 mg, Oral, Q6H while awake amiodarone (CORDARONE) tablet 400 mg, 400 mg, Oral, BID aspirin chewable tablet 81 mg, 81 mg, Oral, QDAY gabapentin (NEURONTIN) capsule 100 mg, 100 mg, Oral, Q8H pantoprazole (PROTONIX) injection 40 mg, 40 mg, Intravenous, QDAY(21) Or pantoprazole DR (PROTONIX) tablet 40 mg, 40 mg, Oral, QDAY(21) polyethylene glycol 3350 (MIRALAX) packet 17 g, 1 packet, Oral, BID rosuvastatin (CRESTOR) tablet 10 mg, 10 mg, Oral, Q72H* senna/docusate (SENOKOT-S) tablet 2 tablet, 2 tablet, Oral, BID Continuous Infusions: dexMEDEtomidine (PRECEDEX) 400 mcg/NS 100 ml IV drip (premade) 1 mcg/kg/hr ( 12/17/20 0739) EPINEPHrine (ADRENALIN) 4 mg in dextrose 5% (D5W) 250 mL IV drip (std conc) 0.06 mcg/kg/min (12/17/20 0710) fentaNYL (SUBLIMAZE) 1000 mcg/100 mL NS IV drip (std conc)(premade) 70 mcg/ hr (12/17/20 1039) insulin regular 100 units/NS 100 mL IV drip (premade) 1.5 Units/hr (12/17/20 0710) milrinone (PRIMACOR) 20 mg/D5W 100 mL infusion 0.25 mcg/kg/min (12/17/20 071 0) nitroGLYCERIN 50 mg/D5W 250 mL infusion Stopped (12/17/20 1020) norepinephrine (LEVOPHED) 4 mg/250 mL NS IV drip (std conc)(premade) Stopp ed (12/17/20 0000) sodium chloride 0.9 % infusion 30 mL/hr at 12/17/20 1056 vasopressin (VASOSTRICT) 20 Units in sodium chloride 0.9% (NS) 100 mL IV dri p (std conc) Stopped (12/16/20 1250) PRN and Respiratory Meds:[START ON 12/21/2020] acetaminophen Q6H PRN OR [STAR T ON 12/21/2020] acetaminophen Q6H PRN, alum/mag hydroxide/simeth Q4H PRN, bisaco dyL QDAY PRN, fentaNYL citrate PF Q1H PRN, hydrALAZINE Q6H PRN, lidocaine PF PRN , magnesium sulfate PRN OR magnesium oxide PRN, milk of magnesia (CONC) QDAY PRN, nalOXone PRN, ondansetron Q6H PRN OR ondansetron (ZOFRAN) IV Q6H PRN, oxyCODONE Q4H PRN, potassium chloride SR PRN OR potassium chloride PRN OR* * potassium chloride in water PRN Vital Signs: Last Filed Vital Signs: 24 Hour Ra nge ABP: 136/56 (12/17 899) Temp: 37.7 C (99.9 F) (12/17 0800) Pulse: 101 (12/17 0800) Respirations: 20 PER MINUTE (12/17 899) SpO2: 100 % (12/17 899) Weight: 56.7 kg (125 lb) (12/17 0500) ABP: (95-154)/(18-56) Temp: [35.7 C (96.3 F)-38.2 C (100.8 F)] Pulse: [94-124] Respirations: [16 PER MINUTE-21 PER MINUTE] SpO2: [97 %-100 %] Intensity Pain Scale (Self Report): (not recorded) Vitals: 12/16/20 0600 12/16/20 0621 12/17/20 0500 Weight: 58.1 kg (128 lb) 58.1 kg (128 lb) 56.7 kg (125 lb) Critical Care Vitals: [place]ig[place]o SVI (Calculated): (!) 22 (12/17/20899) SVRI (Calculated): (!) 2582 (12/17/20899) LVSWI (Calculated): (!) 27.2 (12/16/201419) SQI: 4 (12/17/20899) ICP Monitoring: PA Catheter: PA Catheter Only PA Pressure: (!) 36/22 (12/17/20899) PA Mean (mm Hg): (!) 27 mm Hg (12/17/20899) PAOP: (!) 14 MM HG (12/16/201419) CO: 4.1 (12/17/20899) Cardiac Output Method: Continuous (12/17/20899) CI: (!) 2.2 (12/17/20899) SVR (Calculated): 1262 (12/17/20899) SVRI (Calculated): (!) 2582 (12/17/20899) PVR (Calculated): 119 (12/16/201419) PVRI (Calculated): (!) 188 (12/16/201419) SV (Calculated): (!) 42 (12/17/20899) SVI (Calculated): (!) 22 (12/17/20899) Hemodynamics/Oxycalcs: Hemodynamics/Oxycalcs Device Type: ROLL FORMING SUPERVISOR PA Catheter (12/17/20899) PA Pressure: (!) 36/22 (12/17/20899) PA Mean (mm Hg): (!) 27 mm Hg (12/17/20899) CVP: (!) 18 MM HG (12/17/20899) PAOP: (!) 14 MM HG (12/16/201419) CO: 4.1 (12/17/20899) Cardiac Output Method: Continuous (12/17/20899) CI: (!) 2.2 (12/17/20899) SvO2 (%): 61 % (12/17/20899) SQI: 4 (12/17/20899) SVR (Calculated): 1262 (12/17/20899) SVRI (Calculated): (!) 2582 (12/17/20899) PVR (Calculated): 119 (12/16/201419) PVRI (Calculated): (!) 188 (12/16/20 142) LVSWI (Calculated): (!) 27.2 (12/16/201419) RVSWI (Calculated): (!) 3 (12/17/20899) SV (Calculated): (!) 42 (12/17/20899) SVI (Calculated): (!) 22 (12/17/20899) RVEF: (!) 25 % (12/17/20899) EDV: (!) 165 (12/17/20899) EDVI: 89 (12/17/20899) Intake/Output Summary: (Last 24 hours) Intake/Output Summary (Last 24 hours) at 12/17/2020 1110 Last data filed at 12/17/2020 1100 Gross per 24 hour Intake 3940.98 ml Output 1824 ml Net 2116.98 ml Lab Review: Pertinent labs reviewed Point of Care Testing: (Last 24 hours): Glucose: (!) 110 (12/17/20 0214) POC Glucose (Download): (!) 137 (12/17/20 1100) Radiology and Other Diagnostic Procedures Review: Pertinent radiology reviewed. Yohana Hester MD Developmental Behavioral Physician Anesthesiology and Critical Care [phone] * Mulu Cuevas, RN - 12/17/2020 9:43 AM CDT IABP placed on 1:2, svo2 30 mins post--> 52.2. Overall hemodynamics unchanged during weaning attempt. Dr Hester and Dr Farnham at bedside. Will plan to remove IABP then place on pressure support and extubate in 6 hrs after sheath removal. * Mulu Cuevas RN - 12/17/2020 8:23 AM CDT -Pt AMEZCUA's, FC. Restless RASS +1/+2, moving RLE w/ IABP frequently --> sedation increased/fent boluses given. No plan to extubate until IABP is removed. -SR rate of 90's. On and off low dose nitro for sbp goal of 130's. Palpable puls e throughout. No edema. CVP: 9-10, CI >2 PA's: twenties/teens IABP functioning @ 1:1 -Currently MMV on vent FIO2 40% peep of 5. Minimal secretions. -[place]: AUOP, clear yellow OG to LIS w/ minimal output -CT's: minimal SSD Gtts: Epi @ .06 Mil @ .25 Dex 1 Fent @ 70 Nitro @ .1 Insulin @ 1.5 NS carrier @ 30 * Abhinav Major MD - 12/17/2020 6:06 AM CDT 75F NSTEMI, IABP c/b bleeding s/p 2v CABG 7/12 No acute events overnight. 90s in sinus, 100-140/30s, MMV 400/20/40/5 7.40/34/159/21.7 CI >2, CVP 8-10. PAP 20/10s. On epi 0.06, mil 0.25, levo/vaso off. IABP 1:1. UOP 20-30 ml/hr, 1335, chest tube 295/130, net +2L CXR stable, tubes in appropriate places, no widening of mediastinum. Labs hgb 8.7, platelet 172, cr 0.83. mixed venous 68.8 Keep PAC, chest tubes IABP wean, possible removal today. Keep inotropes at current level. May need 0.08 of epi with balloon pump removal. SBT, wean vent to extubate, following IABP removal. ICU Abhinav Major MD * Hoa Arias RN - 12/17/2020 5:55 AM CDT No neuro changes. SRcBBB ~90s. MAP >65. Intermittent use of nitro for hypertension. IABP 1:1 CI >2. Epi weaned slowly per Kristina Hester MD. PAPs ~20s/10s, CVP ~8 Lungs clear/dim. SpO2 ~100% on MMV 40% FiO2. Minimal secretions. [place] with AUOP CTs with minimal output Dressings/incisions CDI Gtts: Epi @0.06 Milrinone Precedex Fentanyl Insulin NS * Hoa Arias RN - 12/17/2020 12:43 AM CDT Assumed care at 1930. Pt intubated/sedated. FC, AMEZCUA, PERR. SRcBBB ~90s, SBP ~120s. IABP at 1:1. CI>2, PAPs ~20s/10s, CVP ~6. 250 albumin given at 0000. Lungs clear/dim, SpO2 ~100% on AC FiO2 40%. Minimal secretions when suctioned. [place] with AUOP CTs with minimal output Dressings/incisions CDI Gtts: Epi @0.08 Milrinone Precedex Fentanyl Insulin NS * Prabhu Encarnacion - 12/16/2020 3:53 PM CDT PHYSICAL THERAPY MOBILITY NOTE Name: Carli Koroma : 1945 Age: [age] y.o. Admission Date: 12/07/2020 LOS: 9 days Mobility Patient was assigned for activity with the mobility aide by the supervising the rapist. Patient is unavailable. Drying Room Operator: Prabhu Encarnacion Date: 12/16/2020 * Mulu Cuevas RN - 12/16/2020 3:44 PM CDT 12/16/20 1420 Critical Care Vitals Adult CVP (!) 8 MM HG Hemodynamic Monitoring CO 4.03 CI (!) 2.55 SV (Calculated) (!) 37.7 SVI (Calculated) (!) 23.8 SVR (Calculated) (!) 1786 SVRI (Calculated) (!) 2821 PA Pressure (!) 32/14 PA Mean (mm Hg) (!) 20 mm Hg PAOP (!) 14 MM HG PVR (Calculated) 119 PVRI (Calculated) (!) 188 LVSWI (Calculated) (!) 27.2 RVSWI (Calculated) (!) 3.89 Device Type Standard PA Catheter Cardiac Output Method Bolus Initial CI of 1.77 on .08 of epi. --> 250 albumin given and milrinone gtt started. Improved CI above. Has AMEZCUA's spontaneously. Was in and out of afib with irregular rate of 80- 115. Now regular rhythm. Balloon pump functioning @ 1:1. On low dose levo for Map go al of 65. [place]: 75/mls/hr clear yellow Minimal SSD from CT's. 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 I provided or personally directed critical care services including Ventilat or Management, Invasive Hemodynamic Management, Management of Cardiac Support In fusions, Management of Vasogenic Shock, Management of Cardiogenic Shock, Compreh ensive Pain Management and Complex Fluid & Electrolyte Management and the patient is at risk for life threatening deterioration necessitating complex medical decision making and ongoing provision of ICU care. Critical Care Time: 43 minutes Yohana Hester MD 75 yo female s/p CABGx2, IABP placement. H/o CAD, HTN, NSTEMI, HFrEF 10-15%, DM Neuro: Prn pain meds; precedex and fentanyl for overnight RASS -2 goal. TUGBOAT OPERATOR nathanael when able Cardiac: IABP 1:1 with good augmentation. Maintain MAP >65mmHg with Vaso, then NE. Wean epi for MAP>65mmHg and CI >2. Maintain milrinone 0.25 Pulmonary: CMV - plan for extubation after IABP removed FEN: NPO ID: Monitor WBC and for fever Renal: Monitor Cr and UOP Heme: Monitor H/H Endo: SSI Prophylaxis: HOB>40, PPI, DVT prophylaxis when able __ Subjective: Carli Koroma is a 75 y.o. female. Overnight Events: Significant event: from OR. Objective: Medications: Scheduled Meds:acetaminophen (TYLENOL EXTRA STRENGTH) tablet 1,000 mg, 1,000 mg, Oral, Q6H while awake [START ON 12/17/2020] amiodarone (CORDARONE) tablet 400 mg, 400 mg, Oral, BID aspirin chewable tablet 81 mg, 81 mg, Oral, QDAY ceFAZolin (ANCEF) IVP 1 g, 1 g, Intravenous, Q8H* magnesium sulfate 4 g/50 mL IVPB, 4 g, Intravenous, ONCE pantoprazole (PROTONIX) injection 40 mg, 40 mg, Intravenous, QDAY(21) Or pantoprazole DR (PROTONIX) tablet 40 mg, 40 mg, Oral, QDAY(21) rosuvastatin (CRESTOR) tablet 10 mg, 10 mg, Oral, Q72H* [START ON 12/17/2020] senna/docusate (SENOKOT-S) tablet 2 tablet, 2 tablet, Oral, BID Continuous Infusions: aminocaproic acid (AMICAR) 12.5 g in sodium chloride 0.9% (NS) IV infusion S topped (12/16/20 1445) dexMEDEtomidine (PRECEDEX) 400 mcg/NS 100 ml IV drip (premade) 1 mcg/kg/hr ( 12/16/20 1505) EPINEPHrine (ADRENALIN) 4 mg in dextrose 5% (D5W) 250 mL IV drip (std conc) 0.08 mcg/kg/min (12/16/20 1224) insulin regular 100 units/NS 100 mL IV drip (premade) 6 Units/hr (12/16/20 1 245) milrinone (PRIMACOR) 20 mg/D5W 100 mL infusion 0.25 mcg/kg/min (12/16/20 134 3) nitroGLYCERIN 50 mg/D5W 250 mL infusion Stopped (12/16/20 1224) norepinephrine (LEVOPHED) 4 mg/250 mL NS IV drip (std conc)(premade) 0.02 mcg/kg/min (12/16/20 1515) sodium chloride 0.9 % infusion 30 mL/hr at 12/16/20 1224 vasopressin (VASOSTRICT) 20 Units in sodium chloride 0.9% (NS) 100 mL IV dri p (std conc) Stopped (12/16/20 1250) PRN and Respiratory Meds:[START ON 12/21/2020] acetaminophen Q6H PRN OR [STAR T ON 12/21/2020] acetaminophen Q6H PRN, alum/mag hydroxide/simeth Q4H PRN, atropi ne Once PRN, bisacodyL QDAY PRN, fentaNYL citrate PF Q1H PRN, hydrALAZINE Q6H ME N, lidocaine PF PRN, magnesium sulfate PRN OR magnesium oxide PRN, milk of m agnesia (CONC) QDAY PRN, ondansetron Q6H PRN OR ondansetron (ZOFRAN) IV Q6H PRN, oxyCODONE Q4H PRN, potassium chloride SR PRN OR potassium chloride PRN OR potassium chloride in water PRN Vital Signs: Last Filed Vital Signs: 24 Hour Ra nge BP: 134/71 (12/16 625) ABP: 103/33 (12/16 1514) Temp: 35.8 C (96.4 F) (12/16 1514) Pulse: 116 (12/16 1514) Respirations: 20 PER MINUTE (12/16 1514) SpO2: 99 % (12/16 1514) Height: 157.5 cm (62") (12/16 620) Weight: 58.1 kg (128 lb) (12/16 620) BP: (121-147)/(70-87) ABP: (103-154)/(31-54) Temp: [35.8 C (96.4 F)-36.7 C (98.1 F)] Pulse: [78-116] Respirations: [16 PER MINUTE-20 PER MINUTE] SpO2: [95 %-100 %] Intensity Pain Scale (Self Report): (not recorded) Vitals: 12/15/20 0631 12/16/20 0600 12/16/20620 Weight: 58.9 kg (129 lb 12.8 oz) 58.1 kg (128 lb) 58.1 kg (128 lb) Critical Care Vitals: Vig[place]o SVI (Calculated): (!) 23.8 (12/16/201419) SVRI (Calculated): (!) 2821 (12/16/201419) LVSWI (Calculated): (!) 27.2 (12/16/201419) SQI: 4 (12/16/201514) ICP Monitoring: PA Catheter: PA Catheter Only PA Pressure: (!) 28/15 (12/16/201514) PA Mean (mm Hg): (!) 19 mm Hg (12/16/201514) PAOP: (!) 14 MM HG (12/16/201419) CO: 4.03 (12/16/201419) CI: (!) 2.55 (12/16/201419) SVR (Calculated): (!) 1786 (12/16/201419) SVRI (Calculated): (!) 2821 (12/16/201419) PVR (Calculated): 119 (12/16/201419) PVRI (Calculated): (!) 188 (12/16/201419) SV (Calculated): (!) 37.7 (12/16/201419) SVI (Calculated): (!) 23.8 (12/16/201419) Hemodynamics/Oxycalcs: Hemodynamics/Oxycalcs PA Pressure: (!) 28/15 (12/16/201514) PA Mean (mm Hg): (!) 19 mm Hg (12/16/201514) CVP: (!) 8 MM HG (12/16/201514) PAOP: (!) 14 MM HG (12/16/201419) CO: 4.03 (12/16/201419) CI: (!) 2.55 (12/16/201419) SvO2 (%): 70 % (12/16/201514) SQI: 4 (12/16/201514) SVR (Calculated): (!) 1786 (12/16/201419) SVRI (Calculated): (!) 2821 (12/16/201419) PVR (Calculated): 119 (12/16/201419) PVRI (Calculated): (!) 188 (12/16/201419) LVSWI (Calculated): (!) 27.2 (12/16/201419) RVSWI (Calculated): (!) 3.89 (12/16/201419) SV (Calculated): (!) 37.7 (12/16/201419) SVI (Calculated): (!) 23.8 (12/16/201419) Intake/Output Summary: (Last 24 hours) Intake/Output Summary (Last 24 hours) at 12/16/2020 1541 Last data filed at 12/16/2020 1500 Gross per 24 hour Intake 2971.26 ml Output 1625 ml Net 1346.26 ml Lab Review: Pertinent labs reviewed Point of Care Testing: (Last 24 hours): Glucose: (!) 210 (12/16/20 1230) POC Glucose (Download): (!) 188 (12/16/20 7384) Radiology and Other Diagnostic Procedures Review: Pertinent radiology reviewed. 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 Continue ME N Fentanyl, oxycodone with scheduled Tylenol. CV Junctional tach vs a fib coming out of OR, rates 110's. BP 108/34, CI 2.5 5, PA 32/14, CVP 8. IABP 1:1. Current gtts: epi @ 0.08 mcg/kg/min, milrinone @ 0 .25 mcg/kg/min. Cont ASA 81 mg (hold for plts <80k) and statin. Hold BB and ACEI in the initial post op phase. Intra op AIDAN LVEF 5%. Of note, pt NSTEMI pre-op, will need to discuss plavix with CTS prior to discharge. Resp Daily CXR bedside interpretation: lungs expanded, lines in place. W ill review radiology report. AB.34/39/143/21.3. Wean FiO2. Initiate IS, aggr essive pulm toilet once extubated. Chest tubes in place. Renal Baseline Scr 0.6. Monitor BMP, assess for JARED. GI - ADAT, GI prophylaxis while intubated, start post op bowel regimen on POD 1. ID Continue standard post op antibiotic for prophylaxis, per CTS protocol. Heme Check post op CBC/coags, assess for coagulopathy. Hold DVT prophylaxis until cleared by CTS, continue mechanical prophylaxis. FEN If creatinine < 2.0, replace Mg and K to minimize cardiac arrhythmias. Hgb A1c 5.9%. Insulin gtt per Modified [place] Protocol. Activity HOB to 30 degrees over 1st postop hour. Bedrest until extubated, da ngle 6 hours after extubation. Early cardiac PT/OT. Prophylaxis Review: Lines: Yes; Arterial Line; Indication: Continuous BP monitoring; Location: Ra dial Central Line; Indication: Hemodynamic monitoring; Type: Internal jugular Antibiotic Usage: No VTE: Mechanical prophylaxis; Foot pump Urinary Catheter: Yes; Retain eng[place] due to: Need for accurate Intake and Output Disposition: The patient is post-cardiac surgery at at risk for life threatening deterioration. Patient is critically ill s/p CABG x 2 with cardiogenic shock re quiring dual inotrope and IABP. I have seen, personally fully evaluated, and discussed patient with critical car e attending Dr. Yohana Hester and the cardiothoracic surgeon. The patient is crit ically ill, I spent 60 minutes (excluding time spent performing procedures) prov iding and personally directing critical care services including direct OR recove ry, ventilator management, hemodynamic monitoring and management, lab and radiol ogy review, medication review and management, fluid and electrolyte management a nd coordination of care. Merly Seals APRN-STRAIGHTENER HAND [facility] Intensive Care Pager [phone] 12/16/2020 Subjective: HPI: Carli Koroma is a 75 y.o. female who initially presented to outside hospital in [place], [place] on 12/06/20 reporting chief complaint of chest pain, shortness of b reath, nausea with diaphoresis. She was found to have elevated troponin with NST BONY; went to clinical laboratory technician for IABP placement. Her IABP was placed to [facility] and develop ed a leak; therefore it was discontinued to prior to her transfer to [facility]. She was also found to have elevated BNP of 927 with HFrEF (30%) on echocardiogram. P ast medical history includes HTN, HLD, DM 2, CKD II, neuropathy. She is now s/p CABG x [address] Webster on 12/16/20. REVIEW OF SYSTEMS: Review of systems not obtained from patient due to patient factors. Objective: Medications: Scheduled Meds:acetaminophen (TYLENOL EXTRA STRENGTH) tablet 1,000 mg, 1,000 mg, Oral, Q6H while awake [START ON 12/17/2020] amiodarone (CORDARONE) tablet 400 mg, 400 mg, Oral, BID aspirin chewable tablet 81 mg, 81 mg, Oral, QDAY ceFAZolin (ANCEF) IVP 1 g, 1 g, Intravenous, Q8H* magnesium sulfate 4 g/50 mL IVPB, 4 g, Intravenous, ONCE pantoprazole (PROTONIX) injection 40 mg, 40 mg, Intravenous, QDAY(21) Or pantoprazole DR (PROTONIX) tablet 40 mg, 40 mg, Oral, QDAY(21) rosuvastatin (CRESTOR) tablet 10 mg, 10 mg, Oral, Q72H* [START ON 12/17/2020] senna/docusate (SENOKOT-S) tablet 2 tablet, 2 tablet, Oral, BID Continuous Infusions: aminocaproic acid (AMICAR) 12.5 g in sodium chloride 0.9% (NS) IV infusion S topped (12/16/20 1445) dexMEDEtomidine (PRECEDEX) 400 mcg/NS 100 ml IV drip (premade) 1 mcg/kg/hr ( 12/16/20 1505) EPINEPHrine (ADRENALIN) 4 mg in dextrose 5% (D5W) 250 mL IV drip (std conc) 0.08 mcg/kg/min (12/16/20 1224) insulin regular 100 units/NS 100 mL IV drip (premade) 6 Units/hr (12/16/20 1 245) milrinone (PRIMACOR) 20 mg/D5W 100 mL infusion 0.25 mcg/kg/min (12/16/20 134 3) nitroGLYCERIN 50 mg/D5W 250 mL infusion Stopped (12/16/20 1224) norepinephrine (LEVOPHED) 4 mg/250 mL NS IV drip (std conc)(premade) 0.02 mcg/kg/min (12/16/20 1515) sodium chloride 0.9 % infusion 30 mL/hr at 12/16/20 1224 vasopressin (VASOSTRICT) 20 Units in sodium chloride 0.9% (NS) 100 mL IV dri p (std conc) Stopped (12/16/20 1250) PRN and Respiratory Meds:[START ON 12/21/2020] acetaminophen Q6H PRN OR [STAR T ON 12/21/2020] acetaminophen Q6H PRN, alum/mag hydroxide/simeth Q4H PRN, atropi ne Once PRN, bisacodyL QDAY PRN, fentaNYL citrate PF Q1H PRN, hydrALAZINE Q6H ME N, lidocaine PF PRN, magnesium sulfate PRN OR magnesium oxide PRN, milk of m agnskyler (CONC) QDAY PRN, ondansetron Q6H PRN OR ondansetron (ZOFRAN) IV Q6H PRN, oxyCODONE Q4H PRN, potassium chloride SR PRN OR potassium chloride PRN OR potassium chloride in water PRN Vital Signs: Last Filed Vital Signs: 24 Hour Ra nge BP: 134/71 (12/16 625) Temp: 35.8 C (96.4 F) (12/16 1515) Pulse: 116 (12/16 1530) Respirations: 20 PER MINUTE (12/16 1530) SpO2: 99 % (12/16 1530) SpO2 Pulse: 116 (12/16 1530) Height: 157.5 cm (62") (12/16 620) BP: (121-147)/(70-87) ABP: (101-154)/(31-54) Temp: [35.7 C (96.3 F)-36.7 C (98.1 F)] Pulse: [78-116] Respirations: [16 PER MINUTE-20 PER MINUTE] SpO2: [95 %-100 %] Vitals: 12/15/20 0631 12/16/20 0600 12/16/20 06 Weight: 58.9 kg (129 lb 12.8 oz) 58.1 kg (128 lb) 58.1 kg (128 lb) Intake/Output Summary: (Last 24 hours) Intake/Output Summary (Last 24 hours) at 12/16/2020 1547 Last data filed at 12/16/2020 1500 Gross per 24 hour Intake 2971.26 ml Output 1625 ml Net 1346.26 ml Physical Exam: Neuro: Sedated, AMEZCUA Cardiovascular: RRR no rub or murmur Respiratory: LS CTA qamar - diminished in the bases GI: soft, NT, hypoactive BS Extremities: No Edema Incisions: Sternal incision dressing, dry and intact. No crepitus or sternal ins tability. Artificial airway: Endotracheal Tube Vent weaning trial: Per protocol Laboratory: LABS: Recent Labs 12/14/202 12/15/20 0439 12/16/20 0533 12/16/20 1230 NA 141 139 138 142 K 3.8 4.2 3.8 3.3* CL 102 102 103 108 CO2 24 26 24 22 GAP 15* 11 11 12 BUN 16 16 17 14 CR 0.72 0.69 0.69 0.84 GLU 129* 154* 149* 210* CA 10.0 9.8 10.2 8.5 ALBUMIN 3.8 4.0 3.8 -- MG -- -- -- 2.7* Recent Labs 12/14/20 0412 12/14/20 1410 12/14/20 2200 12/15/20 0439 12/15/20 1326 12/15/20 1847 12/16/20 0533 12/16/20 1230 WBC 6.6 -- -- 9.5 -- -- 8.2 -- HGB 12.6 -- -- 12.5 -- -- 12.4 -- HCT 37.3 -- -- 35.6* -- -- 35.8* -- PLTCT 238 -- -- 237 -- -- 234 -- INR 1.2 -- -- 1.2 -- -- 1.2 1.2 PTT 105.9* 43.9* 68.5* 99.7* 50.8* 41.1* 117.1* 28.5 AST 18 -- -- 17 -- -- 21 -- ALT 10 -- -- 12 -- -- 14 -- ALKPHOS 67 -- -- 64 -- -- 62 -- Estimated Creatinine Clearance: 53.9 mL/min (based on SCr of 0.84 mg/dL). Vitals: 12/15/20 0631 12/16/20 0600 12/16/20 0621 Weight: 58.9 kg (129 lb 12.8 oz) 58.1 kg (128 lb) 58.1 kg (128 lb) No results for input(s): PHART, PO2ART in the last 72 hours. Invalid input(s): PC02A Radiology and Other Diagnostic Procedures Review: Reviewed * Marielos Galindo APRN-NP - 12/16/2020 1:57 PM CDT Heart Failure Progress Note Date of Service: 12/16/2020 Carli Koroma is a 75 y.o. y.o. female. 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 female who initially presented to outside hospital in [place], [place] on 12/06/20 reporting chief complaint of chest pain, shortness of b reath, nausea with diaphoresis. She was found to have elevated troponin with NST BONY; went to clinical laboratory technician for IABP placement. Her IABP was placed to [facility] and develop ed a leak; therefore it was discontinued to prior to her transfer to [facility]. She was also found to have elevated BNP of 927 with HFrEF (30%) on echocardiogram. P ast medical history includes HTN, HLD, DM 2, CKD II, neuropathy. She underwent two vessel CABG (with COFFMAN to LAD and RSVG to OM ) by Dr Webster on 12/16/20. Recommendations/Plan: 1. Inotrope/Vasopressor therapy: currently on: Epinephrine 0.08 mcg/kg/min and m ilrinone 0.25 mcg/kg/min and norepinephrine 0.01 mdg/kg/min Goal MAP: > 65 (Recent Trend: 60-65) 2. Diuretic therapy: Goal CVP: <15 (Recent Trend: 8-10) 3. Critical Care Medications per CTS and Critical Care Team/Anesthesiology. 4. Insulin gtt per [place] protocol managed by Critical Care team and CTS. 5. Patient Stated Goal: intubated 6. Temporary pacing wires VVI 60 - important to maintain integrity of temp pacin g wires 7. IABP 1:1 for depressed CI At Discharge: 1. Baseline echo to be completed prior to discharge. 2. Follow Up: appointment with a member of the HF team within 7 calendar days of discharge. 3. Cardiac Rehab Pt seen and examined with Dr. Parker. Marielos Galindo APRN-STRAIGHTENER HAND Available on Vo[employer] Assessment: Acute on chronic systolic HFrEF, EF: 30%. Major Complications or Comorbidities (LONGTERM): acute/ acute on chronic systolic and /or diastolic heart failure NYHA functional class III (marked limitation of physical activity - comfortable at rest, but less than ordinary activity causes symptoms of HF e.g., getting mariano ssed or standing from a sitting position), ACC Stage C (structural heart disease with prior or current symptoms of HF). She presents with signs of hypervolemia with left ventricular failure without s igns of low flow state. Admission BNP: 927 on 12/06 (OSH) Prior to admission diuretic regimen: None Intake/Output I/O last 24 hours: -L I/O entire stay: -L Urine output/24 hours: L Goal Dry Weight: ~128 lbs Guideline Based Heart Failure Therapies: GDMT TUGBOAT OPERATOR Changes BB Atenolol 100 mg po daily Metoprolol 25 mg in AM, 12.5 mg in PM 12/11 Toprol XL 25 mg qhs 12/16 held post op ACEI/ARB/ARNI Previously on Irbesartan *will consider low dose Losartan after s urgery SGLT-2 Inhibitor N/A *consider initiating in outpt setting Aldosterone Antagonist N/A 12/11 Starting Spironolactone 12.5 mg daily 12/13 increase suleman to 25 mg daily 12/16 held post op Hydralazine/Nitrate N/A Ivabradine N/A HRMT N/A *pt may benefit from BUS COMPANY MANAGER-D if EF does not improve with GDMT Anticoagulation for Afib/flutter N/A Cardiac Rehab Evaluation for LVEF <40% Will plan for upon discharge Diuretic Therapy Prior to admission dose N/A Given on admission 12/07 IV lasix 40 mg x1 Daily Dosing 12/08-12/15 Lasix 20 mg po daily 12/16 held post op Cardiomyopathy - likely secondary to ischemic etiology after recent [facility] - no TUGBOAT OPERATOR GDMT; will start with low dose Toprol XL and Spironolactone, consider l ow dose Losartan after surgery - pt may require BUS COMPANY MANAGER-D in outpt setting w/ LBBB on EKG NSTEMI, CAD - pt presented to OSH w/ NSTEMI; had IABP placed initially; transferred to [facility] for further management - 12/07 admit troponin >22.9>18.63>12.99>11.67>4/59>0.64 on 12/12 - CABG x 2 with COFFMAN to LAD and RSVG to OM on 12/16/[address] Jorge LÓPEZ - 12/08 lipid panel: Cholesterol 215, trigs 358, HDL 30, LDL 141 - no TUGBOAT OPERATOR statins; has failed atorvastatin and rosuvastatin 5 and 10 mg with repo rts of myalgia pain (resolved after stopping) consider trial of pravastatin 5-10 mg daily as lowest side effect profile and titrate up to highest tolerated dose - currently on rosuvastatin 10 mg Q 72 hours and zetia 10 mg daily > managed per primary team DM 2 - 12/07/20 HgbA1c 5.9 - TUGBOAT OPERATOR Janumet XR on hold during admission - Sliding scale Insulin while admitted - pt w/ mod amt neuropathy; takes gabapentin 300 mg 5x/day at home - currently receiving gabapentin 300 mg at noon, 600 mg at 1700, 600 mg qhs > managed per primary team CKD II - admit creatinine 0.71-->0.69 today (12/15) > daily labs per primary team Post-op Course of Events 12/16 IABP inserted post operatively Reason for Consultation: Evaluation and recommendations re: heart failure manag ement post LVAD operative placement History of Present Illness: Carli Koroma is a 75 y.o. female who we are asked t o see for evaluation and management of heart failure post LVAD placement. She currently complains of Unable to respond, intubated post operatively. She currently denies unable to respond, intubated post operatively. Review of Systems: Unable to complete - intubated post operatively Objective: Allergies: Allergies Allergen Reactions Crestor [Rosuvastatin] MUSCLE PAIN Medications: Scheduled Meds:acetaminophen (TYLENOL EXTRA STRENGTH) tablet 1,000 mg, 1,000 mg, Oral, Q6H while awake [START ON 12/17/2020] amiodarone (CORDARONE) tablet 400 mg, 400 mg, Oral, BID aspirin chewable tablet 81 mg, 81 mg, Oral, QDAY ceFAZolin (ANCEF) IVP 1 g, 1 g, Intravenous, Q8H* magnesium sulfate 4 g/50 mL IVPB, 4 g, Intravenous, ONCE pantoprazole (PROTONIX) injection 40 mg, 40 mg, Intravenous, QDAY(21) Or pantoprazole DR (PROTONIX) tablet 40 mg, 40 mg, Oral, QDAY(21) rosuvastatin (CRESTOR) tablet 10 mg, 10 mg, Oral, Q72H* [START ON 12/17/2020] senna/docusate (SENOKOT-S) tablet 2 tablet, 2 tablet, Oral, BID Continuous Infusions: aminocaproic acid (AMICAR) 12.5 g in sodium chloride 0.9% (NS) IV infusion 2 g/hr (12/16/20 1224) dexMEDEtomidine (PRECEDEX) 400 mcg/NS 100 ml IV drip (premade) 0.7 mcg/kg/hr (12/16/20 1224) EPINEPHrine (ADRENALIN) 4 mg in dextrose 5% (D5W) 250 mL IV drip (std conc) 0.08 mcg/kg/min (12/16/20 1224) insulin regular 100 units/NS 100 mL IV drip (premade) 6 Units/hr (12/16/20 1 245) milrinone (PRIMACOR) 20 mg/D5W 100 mL infusion 0.25 mcg/kg/min (12/16/20 134 3) nitroGLYCERIN 50 mg/D5W 250 mL infusion Stopped (12/16/20 1224) norepinephrine (LEVOPHED) 4 mg/250 mL NS IV drip (std conc)(premade) 0.01 mcg/kg/min (12/16/20 1356) sodium chloride 0.9 % infusion 30 mL/hr at 12/16/20 1224 vasopressin (VASOSTRICT) 20 Units in sodium chloride 0.9% (NS) 100 mL IV dri p (std conc) Stopped (12/16/20 1250) PRN and Respiratory Meds:[START ON 12/21/2020] acetaminophen Q6H PRN OR [STAR T ON 12/21/2020] acetaminophen Q6H PRN, alum/mag hydroxide/simeth Q4H PRN, atropi ne Once PRN, bisacodyL QDAY PRN, fentaNYL citrate PF Q1H PRN, hydrALAZINE Q6H ME N, lidocaine PF PRN, magnesium sulfate PRN OR magnesium oxide PRN, milk of anel mcdowell (CONC) QDAY PRN, ondansetron Q6H PRN OR ondansetron (ZOFRAN) IV Q6H PRN, oxyCODONE Q4H PRN, potassium chloride SR PRN OR potassium chloride PRN OR potassium chloride in water PRN Medications Prior to Admission Medication Sig Dispense Refill Last Dose allopurinoL (ZYLOPRIM) 100 mg tablet Take 100 mg by mouth daily. Take with f ood. Indications: treatment to prevent acute gout attack antiox #8/om3/dha/epa/lut/zeax (PRESERVISION AREDS 2 (OMEGA-3) PO) Take 1 ta blet by mouth daily. atenoloL (TENORMIN) 100 mg tablet Take 100 mg by mouth daily. Indications: h igh blood pressure gabapentin (NEURONTIN) 300 mg capsule Take 300 mg by mouth five times daily. SITagliptin-metformin (JANUMET XR) 100-1,000 mg tablet Take 1 tablet by mout h daily. Indications: type 2 diabetes mellitus Vital Signs: Last Filed Vital Signs: 24 Hour Range BP: 134/71 (12/16 625) Temp: 36.6 C (97.9 F) (12/16 620) Pulse: 112 (12/16 1244) Respirations: 16 PER MINUTE (12/16 1244) SpO2: 100 % (12/16 1244) SpO2 Pulse: 81 (12/16 625) Height: 157.5 cm (5' 2") (12/16 620) BP: (121-147)/(70-87) ABP: (151)/(49) Temp: [36.6 C (97.8 F)-36.7 C (98.1 F)] Pulse: [78-112] Respirations: [16 PER MINUTE-18 PER MINUTE] SpO2: [95 %-100 %] Hemodynamics: CO 2.8 CI 1.77 CVP 10 PAP /18 mean 21 SvO2 53% Physical Exam: General Appearance: thin, no distress, sedated and intubated Skin: warm and dry, pale Digits and Nails: no cyanosis or clubbing Neck Veins: JVP ~unable to see due to invasive linescm, HJR negative Chest Inspection: sternal incision/dressing C/D/I, chest tube sites with dressin g C/D/I Respiratory Effort: breathing comfortably, no respiratory distress Auscultation/Percussion: lungs clear to auscultation, no rales or rhonchi, no wh eezing Cardiac Rhythm: irregular rhythm and normal rate Cardiac Auscultation: S1, S2 not clearly heard but mechanical VAD hum present, n o rub, no S3 gallop, no S4 gallop Murmurs: no murmur Radial Arteries: normal symmetric radial pulses Abdominal Aorta: no abdominal aortic bruit Pedal Pulses: normal symmetric pedal pulses Lower Extremity Edema: no lower extremity edema Peripheral Circulation: distal upper and lower extremities warm and well-perfuse d Abdominal Exam: soft, non-tender, no masses, bowel sounds normal, Orientation: sedated and intubated Neurologic Exam:sedated and intubated Invasive Lines: right IJ SGC, right RAL, [place], OG Laboratory Review: CBC w/Diff Lab Results Component Value Date/Time WBC 8.2 12/16/2020 05:33 AM RBC 3.96 (L) 12/16/2020 05:33 AM HGB 12.4 12/16/2020 05:33 AM HCT 35.8 (L) 12/16/2020 05:33 AM MCV 90.5 12/16/2020 05:33 AM MCH 31.4 12/16/2020 05:33 AM MCHC 34.7 12/16/2020 05:33 AM RDW 14.0 12/16/2020 05:33 AM PLTCT 234 12/16/2020 05:33 AM MPV 8.1 12/16/2020 05:33 AM Lab Results Component Value Date/Time NEUT 55 12/16/2020 05:33 AM ANC 4.50 12/16/2020 05:33 AM LYMA 30 12/16/2020 05:33 AM ALC 2.40 12/16/2020 05:33 AM IMAN 11 12/16/2020 05:33 AM AMC 0.90 (H) 12/16/2020 05:33 AM EOSA 3 12/16/2020 05:33 AM AEC 0.30 12/16/2020 05:33 AM BASA 1 12/16/2020 05:33 AM ABC 0.00 12/16/2020 05:33 AM Chemistry Lab Results Component Value Date/Time NA 142 12/16/2020 12:30 PM K 3.3 (L) 12/16/2020 12:30 PM CL 108 12/16/2020 12:30 PM CO2 22 12/16/2020 12:30 PM GAP 12 12/16/2020 12:30 PM BUN 14 12/16/2020 12:30 PM CR 0.84 12/16/2020 12:30 PM GLU 210 (H) 12/16/2020 12:30 PM Lab Results Component Value Date/Time CA 8.5 12/16/2020 12:30 PM ALBUMIN 3.8 12/16/2020 05:33 AM TOTPROT 6.8 12/16/2020 05:33 AM ALKPHOS 62 12/16/2020 05:33 AM AST 21 12/16/2020 05:33 AM ALT 14 12/16/2020 05:33 AM TOTBILI 0.8 12/16/2020 05:33 AM GFR >60 12/16/2020 12:30 PM GFRAA >60 12/16/2020 12:30 PM Renal Function Lab Results Component Value Date/Time NA 142 12/16/2020 12:30 PM K 3.3 (L) 12/16/2020 12:30 PM CL 108 12/16/2020 12:30 PM CO2 22 12/16/2020 12:30 PM GAP 12 12/16/2020 12:30 PM BUN 14 12/16/2020 12:30 PM BUN 17 12/16/2020 05:33 AM BUN 16 12/15/2020 04:39 AM Lab Results Component Value Date/Time CR 0.84 12/16/2020 12:30 PM CR 0.69 12/16/2020 05:33 AM CR 0.69 12/15/2020 04:39 AM GLU 210 (H) 12/16/2020 12:30 PM CA 8.5 12/16/2020 12:30 PM ALBUMIN 3.8 12/16/2020 05:33 AM Lipid Profile INR Lab Results Component Value Date CHOL 215 (H) 12/08/2020 TRIG 358 (H) 12/08/2020 HDL 30 (L) 12/08/2020 LDL 141 (H) 12/08/2020 VLDL 72 12/08/2020 NONHDLCHOL 185 12/08/2020 Lab Results Component Value Date INR 1.2 12/16/2020 Chest X-Ray: pending Tele/ECG: accelerated junctional with Vpacing intermittently Echocardiogram Details: Echo Results (Last 3 results in the past 3 years) Echo EF LVIDD LA Size IVS LVPW Rest PAP (12/13/20) 30 (12/13/20) 6.11 (12/13/20) 3.83 (12/13/20) 0.92 (12/13/20) 0.99 (12/10/20) 34 (12/10/20) 30 (12/10/20) 5.50 (12/10/20) 3.70 (12/10/20) 1.10 (12/10/20) 0.80 Marielos Galindo APRN-STRAIGHTENER HAND Pager: [phone] The patient remains critically ill and at high risk for significant morbidity an d mortality. I spent 45 minutes of critical care time in the direct coordination & management of Carli Koroma's care. This includes time spent at the patient's bedside & on the unit, review of labs, imaging studies, telemetry, & echocardiograms, and interpretation of hemodynamic data. This also includes man agement of fluids & electrolytes, medications, pressors & inotropes, and personal discussions with consultation teams. * Cheryl Kimbrough - 12/16/2020 12:33 PM CDT CARDIOPULMONARY REHABILITATION INPATIENT ASSESSMENT Cardiac Rehabilitation Staff: Cheryl Kimbrough Discharge Date: Demographics Pre-admit Dx: Myocardial Infaraction, Coronary Artery Disease Date of Admission: 12/07/2020 Room: HC3 CV OR /HC3 CV OR BD : 1945 Insurance: Primary: MEDICARE Secondary: Unknown Address: [place] [place] [place] [address] Patient (home) Marital Status: Occupation: Unknown ED Contact: Sandra Fernandes (daughter) ED Phone #: Unknown CTS: Jorge Litigation Claim Representative: Unknown Cardiac Procedures and Events CAB12/16/2020 VA/STEMI: 12/06/20(NSTEMI) EF: 30 % Risk Factors Risk Factors: Hypertension, Diabetes-type II, Hyperlipidemia, Family history BP: 134/71 Height: 157.5 cm (62") Weight: 58.1 kg (128 lb) BMI (Calculated): 23.41 Medical History has no past medical history on file. Labs Cholesterol Date Value Ref Range Status 12/08/2020 215 (H) <200 MG/DL Final Triglycerides Date Value Ref Range Status 12/08/2020 358 (H) <150 MG/DL Final HDL Date Value Ref Range Status 12/08/2020 30 (L) >40 MG/DL Final LDL Date Value Ref Range Status 12/08/2020 141 (H) <100 mg/dL Final Hemoglobin A1C Date Value Ref Range Status 12/07/2020 5.9 4.0 - 6.0 % Final Comment: The ADA recommends that most patients with type 1 and type 2 diabetes maintain an A1c level <7%. Troponin-I Date Value Ref Range Status 12/12/2020 0.64 (H) 0.0 - 0.05 NG/ML Final Heart Resource Manual Given: Teaching Completed: Outpatient Cardiopulmonary Rehabilitation Outpatient [facility] Rehab: Referral Faxed to: Date Faxed: Location: If [facility], Sent to Staff: Cheryl Kimbrough 12/16/2020 * Dario Webster MD - 12/16/2020 7:33 AM CDT I spoke to Ms. Koroma this morning in the preop area. She understands the risks of the procedure including , stroke, and bleeding, and others, and she has asked again to proceed. There is a very high likelihood of IABP placement and s he understands this. 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 Webster as plan jeremy. Patients states that Dr. Webster explained the procedure and risk to patient s satisfaction. Pertinent preoperative testing including history, labs and imagi ng reviewed. Patient denies any new symptoms- COVID-19 testing negative on 1. Patient understands procedure and all questions were answered. Surgical conse nts are signed and in chart. NPO since midnight. Pre-Surgical scrubs complete. L ast dose of beta doug: 12/15/20. STS risk calculator: Risk of Mortality: 3.899% Renal Failure: 1.477% Permanent Stroke: 3.704% Prolonged Ventilation: 13.205% DSW Infection: 0.145% Reoperation: 2.548% Morbidity or Mortality: 18.115% Short Length of Stay: 26.923% Long Length of Stay: 8.702% Assessment/Plan: Neuro prn tylenol, melatonin for sleep. 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 CV NSR with left bundle, rates 80s. SBP 120-140s. Cont ASA. Per nafisa whitfield statin to 3x per week.. EF 30% per report. Troponin 12.9->11.6->4.59->0.64 . Cont lopressor to toprol XL, spirolactone 12.5mg,per HF team.. Resp 95% on RA. Cont IS, aggressive pulm toilet. PFTs completed. Renal Baseline sCr. 0.7, sCr today 0.69. Lasix 20mg daily. GI - ADAT, continue post op bowel regimen. PPI for ppx. ID Afebrile. WBC: 8.2 Heme H/H stable. Platelets 234. INR 1.2. Heparin drip for NSTEMI FEN replace Mg and K to minimize the risk of cardiac arrhythmias. Insulin sl iding scale with hx of diabetes, Hg A1c 5.9. TUGBOAT OPERATOR Allopurinol. Activity Ambulating. Encourage to increase activity. Disposition: Labs and studies reviewed. Plan CABG with Dr. Webster. Patient confi fredo Dr. Webster discussed the surgery and the risks with her. Prophylaxis Review: Lines: No Antibiotic Usage: No VTE: Heparin drip- will go to OR with. Urinary Catheter: No CTA chest 12/15/20 1. Dense coronary artery calcifications with normal heart size. 2. Scattered pleural parenchymal scarring. No acute pulmonary abnormality. 3. Mild hepatic steatosis. 4. Small hiatal hernia. Repeat Echocardiogram 1. Mildly dilated left ventricle with moderate to severely reduced systolic fun ction. LVEF is about 25 to 30% 2. Regional wall motion of normalities as described in the diagram 3. Unable to assess diastolic function in this 2D only study 4. RV is normal size with normal systolic function 5. Both atria are normal size 6. Normal central venous pressure 7. Tightly structurally the aortic mitral and tricuspid valve appear mostly unre markable. Valvular function cannot be ascertained 8. No pericardial effusion Vein mapping Right Lower Lower Extremity Greater Saphenous AP (mm) Sapenofemoral junction 10.2 mm Proximal thigh 4.2 mm Mid thigh 3.1 mm Distal thigh 3 mm At knee 2.4 mm Proximal calf 2.6 mm Mid calf 1.6 mm Distal calf 1.3 mm At ankle 2 mm Left Lower Lower Extremity Greater Saphenous AP (mm) Sapenofemoral junction 6.8 mm Proximal thigh 4.7 mm Mid thigh 1.8 mm Distal thigh 1.6 mm At knee 1.4 mm Proximal calf 1.6 mm PFT FVC-Pre 1.78 L Final FVC-%Pred-pre 70 % Final FEV1-Pre 1.48 L Final FEV1-%Pred-Pre 75 % Final FEV1/FVC-Pre 83 % Final [id number] 64 % Final [id number] 1.35 L/sec Final [id number]-%Pred-Pre 81 Litzy Wallace, SHOE STAINER-STRAIGHTENER HAND Voalte 12/16/2020 Subjective: HPI: Carli Koroma is a 75 y.o. female with hx of CAD, HTN, NSTEMI with HFrEF. Transf erred from OSH for CABG eval. REVIEW OF SYSTEMS: Review of Systems Constitutional: Negative for chills and fever. HENT: Poor dentition Respiratory: Negative for cough, sputum production and shortness of breath. Cardiovascular: Negative for chest pain and leg swelling. Gastrointestinal: Negative for abdominal pain, constipation and diarrhea. Skin: Negative for itching and rash. Neurological: Negative for dizziness, sensory change, focal weakness and weaknes s. Psychiatric/Behavioral: Negative for hallucinations and substance abuse. The pat ient is not nervous/anxious. Objective: Medications: Scheduled Meds:[AUG Hold] allopurinoL (ZYLOPRIM) tablet 100 mg, 100 mg, Oral, QD AY [AUG Hold] aspirin EC tablet 81 mg, 81 mg, Oral, QDAY [AUG Hold] ezetimibe (ZETIA) tablet 10 mg, 10 mg, Oral, QDAY [MAR Hold] furosemide (LASIX) tablet 20 mg, 20 mg, Oral, QDAY gabapentin (NEURONTIN) capsule 300 mg, 300 mg, Oral, QDAY(12) gabapentin (NEURONTIN) capsule 600 mg, 600 mg, Oral, QHS gabapentin (NEURONTIN) capsule 600 mg, 600 mg, Oral, QDAY(17) [AUG Hold] heparin (porcine) BOLUS for continuous inf (vial) 1,260-2,510 Units, 20-40 Units/kg, Intravenous, As Prescribed [AUG Hold] insulin aspart U-100 (NOVOLOG FLEXPEN) injection PEN 0-12 Units, 0-12 Units, Subcutaneous, ACHS (22) metoprolol XL (TOPROL XL) tablet 25 mg, 25 mg, Oral, QHS [AUG Hold] pantoprazole DR (PROTONIX) tablet 40 mg, 40 mg, Oral, QDAY(21) [AUG Hold] rosuvastatin (CRESTOR) tablet 10 mg, 10 mg, Oral, Q72H* [AUG Hold] spironolactone (ALDACTONE) tablet 25 mg, 25 mg, Oral, QDAY Continuous Infusions: heparin (porcine) 20,000 units/D5W 500 mL infusion (std conc)(premade) 855 U nits/hr (12/15/20 2238) sodium chloride 0.9 % infusion 20 mL/hr at 12/16/20 0630 PRN and Respiratory Meds:[AUG Hold] acetaminophen Q4H PRN, [AUG Hold] bisacodyL QDAY PRN, [AUG Hold] calcium gluconate IV PRN (Nutrition Services Aide from Rx) AND Ionized Calcium PRN AND Notify Physician Ongoing, [AUG Hold] lidocaine PF PRN, [AUG Hold] magnesium sulfate PRN AND [] Magnesium PRN AND Notify Phys ician Ongoing, [AUG Hold] melatonin QHS PRN, [AUG Hold] milk of magnesia (CONC) QDAY PRN, [AUG Hold] ondansetron (ZOFRAN) IV Q6H PRN, [AUG Hold] polyethylene gl ycol 3350 BID PRN, [AUG Hold] senna/docusate BID PRN, [AUG Hold] sodium phosphat e IVPB PRN (Nutrition Services Aide from Rx) OR [AUG Hold] sodium phosphate IVPB PRN (On C all from Rx) OR [AUG Hold] sodium phosphate IVPB PRN (Nutrition Services Aide from Rx) Vital Signs: Last Filed Vital Signs: 24 Hour Ra nge BP: 134/71 (12/16 625) Temp: 36.6 C (97.9 F) (12/16 529) Pulse: 80 (12/16 625) Respirations: 16 PER MINUTE (12/16 625) SpO2: 96 % (12/16 625) SpO2 Pulse: 81 (12/16 625) BP: (121-147)/(62-87) Temp: [36.4 C (97.5 F)-36.7 C (98.1 F)] Pulse: [76-90] Respirations: [16 PER MINUTE-18 PER MINUTE] SpO2: [95 %-98 %] Vitals: 12/14/20 0500 12/15/20 0631 12/16/20 0600 Weight: 58.3 kg (128 lb 9.6 oz) 58.9 kg (129 lb 12.8 oz) 58.1 kg (128 lb) Intake/Output Summary: (Last 24 hours) Intake/Output Summary (Last 24 hours) at 12/16/2020 0658 Last data filed at 12/16/2020 0623 Gross per 24 hour Intake 1139.03 ml Output 2050 ml Net -910.97 ml Physical Exam: Neuro: A&O x 3 Cardiovascular: RRR no rub or murmur Respiratory: CTA GI: soft, NT, + BS Extremities: No Edema Incisions: continued bruising on right groin cath/IABP site, non tender to palpa tion, c/d/i LABS: Recent Labs 12/14/20 0412 12/15/20 0439 12/16/20 0533 NA 141 139 138 K 3.8 4.2 3.8 CL 102 102 103 CO2 24 26 24 GAP 15* 11 11 BUN 16 16 17 CR 0.72 0.69 0.69 GLU 129* 154* 149* CA 10.0 9.8 10.2 ALBUMIN 3.8 4.0 3.8 Recent Labs 12/14/20 0412 12/14/20 1410 12/14/20 2200 12/15/20 0439 12/15/20 1326 12/15/20 1847 12/16/20 0533 WBC 6.6 -- -- 9.5 -- -- 8.2 HGB 12.6 -- -- 12.5 -- -- 12.4 HCT 37.3 -- -- 35.6* -- -- 35.8* PLTCT 238 -- -- 237 -- -- 234 INR 1.2 -- -- 1.2 -- -- 1.2 PTT 105.9* 43.9* 68.5* 99.7* 50.8* 41.1* 117.1* AST 18 -- -- 17 -- -- 21 ALT 10 -- -- 12 -- -- 14 ALKPHOS 67 -- -- 64 -- -- 62 Estimated Creatinine Clearance: 64.7 mL/min (based on SCr of 0.69 mg/dL). Vitals: 12/14/20 0500 12/15/20 0631 12/16/20 0600 Weight: 58.3 kg (128 lb 9.6 oz) 58.9 kg (129 lb 12.8 oz) 58.1 kg (128 lb) No results for input(s): PHART, PO2ART in the last 72 hours. Invalid input(s): PC02A Radiology and Other Diagnostic Procedures Review: Reviewed * Clarice Álvarez RN - 12/16/2020 6:00 AM CDT On tele, SR c/ BBB. A&Ox4. Pt on RA, denies SOA. No c/o pain. Adequate UOP, last BM 12/15. Heparin gtt infusing per protocol. NPO @ 0000. * Daly Jj, PREETHI - 12/15/2020 7:26 PM CDT A&Ox4. SR c BBB on tele. Tolerating RA. UOP adequate. BM last 12/14. Denies CP. Ambulating independently, walking laps in halls. Heparin infusing per MAR. Plan NPO at 0000. * Sean Camp, ADAMS - 12/15/2020 1:51 PM CDT Inpatient medication orders for Carli Koroma were reviewed on 12/15/2020 prior to her CTS procedure scheduled for 12/16/20. Medications that should not be give n on the morning of surgery have been documented as "planned hold" on the MAR (a spirin, furosemide, spironolactone). All other medications should be given prio r to surgery as scheduled. SEAN Camp, ADAMS * Neymar Potter, SHOE STAINER-STRAIGHTENER HAND - 12/15/2020 7:42 AM CDT Heart Failure Progress Note NAME:Carli Koroma :1945 AGE: 75 y.o. 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 female who initially presented to outside hospit al in [place], [place] on 12/06/20 reporting chief complaint of chest pain, shortness of breath, nausea with diaphoresis. She was found to have elevated troponin with NSTEMI; went to clinical laboratory technician for IABP placement. Her IABP was placed to [facility] and de veloped a leak; therefore it was discontinued to prior to her transfer to [facility]. She was also found to have elevated BNP of 927 with HFrEF (30%) on echocardiogr am. Past medical history includes HTN, HLD, DM 2, CKD II, neuropathy. Recommendations: 1. NPO at midnight for CABG in AM 2. Continue Toprol XL 25 mg qhs and Spironolactone 25 mg/day for GDMT 3. Continue Lasix 20 mg po daily for diuretics 4. Continue Heparin gtt prior to surgery per protocol 5. Will consider starting ARB vs Entresto post operatively after pt has stabiliz ed 6. Currently tolerating rosuvastatin 10 mg Q 72 hours--> consider pravastatin 10 mg PO QHS (see below) 7. CTS planning for repeat echo and IABP placement prior to planned CABG Pt seen and examined; discussed with Dr Candelaria Potter SHOE STAINER Pager # [phone] Available on Voalte Assessment: Acute on chronic systolic HFrEF, EF: 30%. Major Complications or Comorbidities (LONGTERM): acute/ acute on chronic systolic and /or diastolic heart failure NYHA functional class III (marked limitation of physical activity - comfortable at rest, but less than ordinary activity causes symptoms of HF e.g., getting mariano ssed or standing from a sitting position), ACC Stage C (structural heart disease with prior or current symptoms of HF). She presents with signs of hypervolemia with left ventricular failure without s igns of low flow state. Admission BNP: 927 on 12/06 (OSH) Prior to admission diuretic regimen: None Intake/Output: Entire stay net: -255 mL, Last 24 hr net: +104 mL UOP last 24 hrs: 750 mL Inaccurate I&Os Goal Dry Weight: ~128 lbs Admission Weight: 62.8 kg (138 lb 6.4 oz) Most recent weights (inpatient): Vitals: 12/13/20 0600 12/14/20 0500 12/15/20 0631 Weight: 58.5 kg (129 lb) 58.3 kg (128 lb 9.6 oz) 58.9 kg (129 lb 12.8 oz) Guideline Based Heart Failure Therapies: GDMT TUGBOAT OPERATOR Changes BB Atenolol 100 mg po daily Metoprolol 25 mg in AM, 12.5 mg in PM 12/11 Toprol XL 25 mg qhs ACEI/ARB/ARNI Previously on Irbesartan *will consider low dose Losartan after s urgery SGLT-2 Inhibitor N/A *consider initiating in outpt setting Aldosterone Antagonist N/A 12/11 Starting Spironolactone 12.5 mg daily 12/13 increase suleman to 25 mg daily Hydralazine/Nitrate N/A Ivabradine N/A HRMT N/A *pt may benefit from BUS COMPANY MANAGER-D if EF does not improve with GDMT Anticoagulation for Afib/flutter N/A Cardiac Rehab Evaluation for LVEF <40% Will plan for upon discharge Diuretic Therapy Prior to admission dose N/A Given on admission 12/07 IV lasix 40 mg x1 Daily Dosing 12/08-12/15 Lasix 20 mg po daily Cardiomyopathy - likely secondary to ischemic etiology after recent [facility] - no TUGBOAT OPERATOR GDMT; will start with low dose Toprol XL and Spironolactone, consider l ow dose Losartan after surgery - pt may require BUS COMPANY MANAGER-D in outpt setting w/ LBBB on EKG NSTEMI, CAD - pt presented to OSH w/ NSTEMI; had IABP placed initially; transferred to [facility] for further management - 12/07 admit troponin >22.9>18.63>12.99>11.67>4/59>0.64 on 12/12 - CTS team planning for CABG on 12/16/20 HLD - 12/08 lipid panel: Cholesterol 215, trigs 358, HDL 30, LDL 141 - no TUGBOAT OPERATOR statins; has failed atorvastatin and rosuvastatin 5 and 10 mg with repo rts of myalgia pain (resolved after stopping) consider trial of pravastatin 5-10 mg daily as lowest side effect profile and titrate up to highest tolerated dose - currently on rosuvastatin 10 mg Q 72 hours and zetia 10 mg daily > managed per primary team DM 2 - 12/07/20 HgbA1c 5.9 - TUGBOAT OPERATOR Janumet XR on hold during admission - Sliding scale Insulin while admitted - pt w/ mod amt neuropathy; takes gabapentin 300 mg 5x/day at home - currently receiving gabapentin 300 mg at noon, 600 mg at 1700, 600 mg qhs > managed per primary team CKD II - admit creatinine 0.71-->0.69 today (12/15) > daily labs per primary team Subjective: She currently complains of no symptoms. She reports she rested fair overnight. Daughter in room at bedside. She is anxious to get through her surgery tomorrow. She currently denies shortness of breath, dyspnea on exertion, paroxysmal noctu rnal dyspnea, orthopnea, lightheadedness, positional lightheadedness, palpitatio ns, chest pain, abdominal fullness and peripheral edema. Objective: Vital Signs: Last Filed Vital Signs: 24 Hour Range BP: 131/70 (12/15 334) Temp: 36.4 C (97.5 F) (12/15 334) Pulse: 90 (12/15 334) Respirations: 18 PER MINUTE (12/15 334) SpO2: 97 % (12/15 334) BP: (131-146)/(65-78) Temp: [36.4 C (97.5 F)-36.7 C (98 F)] Pulse: [78-90] Respirations: [18 PER MINUTE] SpO2: [95 %-99 %] Wt Readings from Last 10 Encounters: 12/15/20 58.9 kg (129 lb 12.8 oz) Physical Exam: General Appearance: thin elderly female, appears stated age, no distress Eyes: conjunctivae and lids normal, pupils are equal and round Teeth/Gums/Palate: poor dentition Lips & Oral Mucosa: no pallor or cyanosis Neck Veins: JVP ~5cm, HJR negative Chest Inspection: chest is normal in appearance Respiratory Effort: breathing comfortably, no respiratory distress Auscultation: lungs clear to auscultation, no rales or rhonchi, no wheezing Cardiac Rhythm: regular rhythm and normal rate Cardiac Auscultation: S1, S2 present but clear splitting not heard Murmurs: no murmur Radial Arteries: normal symmetric radial pulses Pedal Pulses: normal symmetric pedal pulses Lower Extremity Edema:no lower extremity edema Peripheral Circulation: distal upper and lower extremities warm, well-perfused a nd with delayed capilary refill Abdominal Exam: soft, non-tender, no masses, bowel sounds normal Muscle Strength: decreased muscle tone Orientation: oriented to time, place and person Affect & Mood: appropriate and sustained affect Language and Memory: patient responsive and seems to comprehend information Neurologic Exam: neurological assessment grossly intact and moves all extremitie s Laboratory Review: CBC w diff Lab Results Component Value Date/Time WBC 9.5 12/15/2020 04:39 AM RBC 3.95 (L) 12/15/2020 04:39 AM HGB 12.5 12/15/2020 04:39 AM HCT 35.6 (L) 12/15/2020 04:39 AM MCV 89.9 12/15/2020 04:39 AM MCH 31.5 12/15/2020 04:39 AM MCHC 35.0 12/15/2020 04:39 AM RDW 14.2 12/15/2020 04:39 AM PLTCT 237 12/15/2020 04:39 AM MPV 8.4 12/15/2020 04:39 AM Lab Results Component Value Date/Time NEUT 63 12/15/2020 04:39 AM ANC 6.08 12/15/2020 04:39 AM LYMA 23 (L) 12/15/2020 04:39 AM ALC 2.13 12/15/2020 04:39 AM IMAN 10 12/15/2020 04:39 AM AMC 0.98 (H) 12/15/2020 04:39 AM EOSA 3 12/15/2020 04:39 AM AEC 0.23 12/15/2020 04:39 AM BASA 1 12/15/2020 04:39 AM ABC 0.05 12/15/2020 04:39 AM Chemistry Lab Results Component Value Date/Time NA 139 12/15/2020 04:39 AM K 4.2 12/15/2020 04:39 AM CL 102 12/15/2020 04:39 AM CO2 26 12/15/2020 04:39 AM GAP 11 12/15/2020 04:39 AM BUN 16 12/15/2020 04:39 AM CR 0.69 12/15/2020 04:39 AM GLU 154 (H) 12/15/2020 04:39 AM Lab Results Component Value Date/Time CA 9.8 12/15/2020 04:39 AM ALBUMIN 4.0 12/15/2020 04:39 AM TOTPROT 6.9 12/15/2020 04:39 AM ALKPHOS 64 12/15/2020 04:39 AM AST 17 12/15/2020 04:39 AM ALT 12 12/15/2020 04:39 AM TOTBILI 0.7 12/15/2020 04:39 AM GFR >60 12/15/2020 04:39 AM GFRAA >60 12/15/2020 04:39 AM 12/07/20 Chest X-Ray: Improved patchy bilateral opacities likely improving pulmonary edema. Tele/ECG: SR, LBBB, HR 80s Echocardiogram Details: Echo Results (Last 3 results in the past 3 years) Echo EF LVIDD LA Size IVS LVPW Rest PAP (12/13/20) 30 (12/13/20) 6.11 (12/13/20) 3.83 (12/13/20) 0.92 (12/13/20) 0.99 (12/10/20) 34 (12/10/20) 30 (12/10/20) 5.50 (12/10/20) 3.70 (12/10/20) 1.10 (12/10/20) 0.80 12/10/20 Echo: The left ventricle is mildly dilated. Eccentric hypertrophy. The left ventric ular systolic function is moderately reduced. The visually estimated ejection fr action is 30%. There are segmental wall motion abnormalities, as coded in the di agram below. The right ventricular size is normal. The right ventricular systolic function is hyperdynamic. Normal biatrial size. No significant valvluar abnormalities. Estimated Peak Systolic PA Pressure 34 mmHg No pericardial effusion. 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 Denies chest pain Assessment/Plan: Neuro prn tylenol, melatonin for sleep. 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 CV NSR with left bundle, rates 80s. SBP 120-130s. Cont ASA. Per pharm, nafisa geehsan statin to 3x per week.. EF 30% per report. Troponin 12.9->11.6->4.59->0.64 . Cont lopressor to toprol XL, spirolactone 12.5mg,per HF team.. Resp 95% on RA. Cont IS, aggressive pulm toilet. PFTs completed. Renal Baseline sCr. 0.7, sCr today 0.69. Lasix 20mg daily. GI - ADAT, continue post op bowel regimen. PPI for ppx. ID Afebrile. WBC:6.1 Heme H/H stable. Platelets 237. INR 1.2. Heparin drip for NSTEMI FEN replace Mg and K to minimize the risk of cardiac arrhythmias. Insulin sl iding scale with hx of diabetes, Hg A1c 5.9. TUGBOAT OPERATOR Allopurinol. Activity Ambulating. Encourage to increase activity. Disposition: Labs and studies reviewed. Plan CABG tomorrow with Dr. Webster. Jessica ent confirms Dr. Webster discussed the surgery and the risks with her. Prophylaxis Review: Lines: No Antibiotic Usage: No VTE: Heparin drip Urinary Catheter: No Repeat Echocardiogram 1. Mildly dilated left ventricle with moderate to severely reduced systolic fun ction. LVEF is about 25 to 30% 2. Regional wall motion of normalities as described in the diagram 3. Unable to assess diastolic function in this 2D only study 4. RV is normal size with normal systolic function 5. Both atria are normal size 6. Normal central venous pressure 7. Tightly structurally the aortic mitral and tricuspid valve appear mostly unre markable. Valvular function cannot be ascertained 8. No pericardial effusion Vein mapping Right Lower Lower Extremity Greater Saphenous AP (mm) Sapenofemoral junction 10.2 mm Proximal thigh 4.2 mm Mid thigh 3.1 mm Distal thigh 3 mm At knee 2.4 mm Proximal calf 2.6 mm Mid calf 1.6 mm Distal calf 1.3 mm At ankle 2 mm Left Lower Lower Extremity Greater Saphenous AP (mm) Sapenofemoral junction 6.8 mm Proximal thigh 4.7 mm Mid thigh 1.8 mm Distal thigh 1.6 mm At knee 1.4 mm Proximal calf 1.6 mm PFT FVC-Pre 1.78 L Final FVC-%Pred-pre 70 % Final FEV1-Pre 1.48 L Final FEV1-%Pred-Pre 75 % Final FEV1/FVC-Pre 83 % Final [id number] 64 % Final [id number] 1.35 L/sec Final [id number]-%Pred-Pre 81 Abhijit Banuelos PA-C [facility] 12/15/2020 Subjective: HPI: Carli Koroma is a 75 y.o. female with hx of CAD, HTN, NSTEMI with HFrEF. Transf erred from OSH for CABG eval. REVIEW OF SYSTEMS: Review of Systems Constitutional: Negative for chills and fever. HENT: Poor dentition Respiratory: Negative for cough, sputum production and shortness of breath. Cardiovascular: Negative for chest pain and leg swelling. Gastrointestinal: Negative for abdominal pain, constipation and diarrhea. Skin: Negative for itching and rash. Neurological: Negative for dizziness, sensory change, focal weakness and weaknes s. Psychiatric/Behavioral: Negative for hallucinations and substance abuse. The pat ient is not nervous/anxious. Objective: Medications: Scheduled Meds:allopurinoL (ZYLOPRIM) tablet 100 mg, 100 mg, Oral, QDAY aspirin EC tablet 81 mg, 81 mg, Oral, QDAY ezetimibe (ZETIA) tablet 10 mg, 10 mg, Oral, QDAY furosemide (LASIX) tablet 20 mg, 20 mg, Oral, QDAY gabapentin (NEURONTIN) capsule 300 mg, 300 mg, Oral, QDAY(12) gabapentin (NEURONTIN) capsule 600 mg, 600 mg, Oral, QHS gabapentin (NEURONTIN) capsule 600 mg, 600 mg, Oral, QDAY(17) heparin (porcine) BOLUS for continuous inf (vial) 1,260-2,510 Units, 20-40 Units /kg, Intravenous, As Prescribed insulin aspart U-100 (NOVOLOG FLEXPEN) injection PEN 0-12 Units, 0-12 Units, Sub cutaneous, ACHS (22) metoprolol XL (TOPROL XL) tablet 25 mg, 25 mg, Oral, QHS pantoprazole DR (PROTONIX) tablet 40 mg, 40 mg, Oral, QDAY(21) rosuvastatin (CRESTOR) tablet 10 mg, 10 mg, Oral, Q72H* spironolactone (ALDACTONE) tablet 25 mg, 25 mg, Oral, QDAY Continuous Infusions: heparin (porcine) 20,000 units/D5W 500 mL infusion (std conc)(premade) Stopp ed (12/15/20 0601) PRN and Respiratory Meds:acetaminophen Q4H PRN, bisacodyL QDAY PRN, calcium gluc joe IV PRN (Nutrition Services Aide from Rx) AND Ionized Calcium PRN AND Notify Physi heladio Ongoing, magnesium sulfate PRN AND [] Magnesium PRN AND Noti fy Physician Ongoing, milk of magnesia (CONC) QDAY PRN, ondansetron (ZOFRAN) IV Q6H PRN, polyethylene glycol 3350 BID PRN, senna/docusate BID PRN, sodium phosph ate IVPB PRN (Nutrition Services Aide from Rx) OR sodium phosphate IVPB PRN (Nutrition Services Aide from Rx) OR sodium phosphate IVPB PRN (Nutrition Services Aide from Rx) Vital Signs: Last Filed Vital Signs: 24 Hour Ra nge BP: 131/70 (12/15 334) Temp: 36.4 C (97.5 F) (12/15 334) Pulse: 90 (12/15 334) Respirations: 18 PER MINUTE (12/15 334) SpO2: 97 % (12/15 334) BP: (131-146)/(65-78) Temp: [36.3 C (97.3 F)-36.7 C (98 F)] Pulse: [71-90] Respirations: [17 PER MINUTE-18 PER MINUTE] SpO2: [95 %-99 %] Vitals: 12/11/20 0634 12/13/20 0600 12/14/20 0500 Weight: 59.6 kg (131 lb 6.4 oz) 58.5 kg (129 lb) 58.3 kg (128 lb 9.6 oz) Intake/Output Summary: (Last 24 hours) Intake/Output Summary (Last 24 hours) at 12/15/2020 0628 Last data filed at 12/14/2020 1900 Gross per 24 hour Intake 853.97 ml Output 750 ml Net 103.97 ml Physical Exam: Neuro: A&O x 3 Cardiovascular: RRR no rub or murmur Respiratory: CTA GI: soft, NT, + BS Extremities: No Edema Incisions: continued bruising on right groin cath/IABP site, non tender to palpa tion, c/d/i LABS: Recent Labs 12/13/20 0406 12/14/20 0412 12/15/20 0439 NA 140 141 139 K 3.8 3.8 4.2 CL 101 102 102 CO2 29 24 26 GAP 10 15* 11 BUN 12 16 16 CR 0.67 0.72 0.69 GLU 139* 129* 154* CA 9.2 10.0 9.8 ALBUMIN 3.8 3.8 4.0 Recent Labs 12/13/20 0406 12/14/20 0412 12/14/20 1410 12/14/20 2200 12/15/20 0439 WBC 6.1 6.6 -- -- 9.5 HGB 12.5 12.6 -- -- 12.5 HCT 35.9* 37.3 -- -- 35.6* PLTCT 212 238 -- -- 237 INR 1.2 1.2 -- -- 1.2 PTT 67.8* 105.9* 43.9* 68.5* 99.7* AST 15 18 -- -- 17 ALT 9 10 -- -- 12 ALKPHOS 58 67 -- -- 64 Estimated Creatinine Clearance: 64.9 mL/min (based on SCr of 0.69 mg/dL). Vitals: 12/11/20 0634 12/13/20 0600 12/14/20 0500 Weight: 59.6 kg (131 lb 6.4 oz) 58.5 kg (129 lb) 58.3 kg (128 lb 9.6 oz) No results for input(s): PHART, PO2ART in the last 72 hours. Invalid input(s): PC02A Radiology and Other Diagnostic Procedures Review: Reviewed Associated attestation - Marcos Crowder MD - 12/15/2020 8:21 AM CDT Stable, no angina. On IV heparin, therapeutic. Planning surgery with Dr. Webster tomorrow. All questions answered. * Neymar Potter, SHOE STAINER-STRAIGHTENER HAND - 12/14/2020 7:43 AM CDT Heart Failure Progress Note NAME:Carli Koroma :1945 AGE: 75 y.o. 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 female who initially presented to outside hospit al in [place], [place] on 12/06/20 reporting chief complaint of chest pain, shortness of breath, nausea with diaphoresis. She was found to have elevated troponin with NSTEMI; went to clinical laboratory technician for IABP placement. Her IABP was placed to [facility] and de veloped a leak; therefore it was discontinued to prior to her transfer to [facility]. She was also found to have elevated BNP on 927 with HFrEF (30%) on echocardiogr am. Past medical history includes HTN, HLD, DM 2, CKD II. Recommendations: 1. CTS team planning for CABG 12/16/20 2. Continue Toprol XL 25 mg qhs and Spironolactone 25 mg/day 3. Continue Lasix 20 mg po daily 4. Continue Heparin gtt prior to surgery 5. Will need to start pt on ARB vs Entresto after surgery 6. Currently tolerating rosuvastatin 10 mg Q 72 hours--> consider pravastatin 10 mg PO QHS (see below) 7. CTS planning for repeat echo and IABP placement prior to planned CABG Pt seen and examined; discussed with Dr Candelaria Potter SHOE STAINER Pager # [phone] Available on Voalte Assessment: Acute on chronic systolic HFrEF, EF: 30%. Major Complications or Comorbidities (LONGTERM): acute/ acute on chronic systolic and /or diastolic heart failure NYHA functional class III (marked limitation of physical activity - comfortable at rest, but less than ordinary activity causes symptoms of HF e.g., getting mariano ssed or standing from a sitting position), ACC Stage C (structural heart disease with prior or current symptoms of HF). She presents with signs of hypervolemia with left ventricular failure without s igns of low flow state. Admission BNP: 927 on 12/06 (OSH) Prior to admission diuretic regimen: None Intake/Output: Entire stay net: -359 mL, Last 24 hr net: +274 mL Goal Dry Weight: ~130 lbs Admission Weight: 62.8 kg (138 lb 6.4 oz) Most recent weights (inpatient): Vitals: 12/11/20 0634 12/13/20 0600 12/14/20 0500 Weight: 59.6 kg (131 lb 6.4 oz) 58.5 kg (129 lb) 58.3 kg (128 lb 9.6 oz) Guideline Based Heart Failure Therapies: GDMT TUGBOAT OPERATOR Changes BB Atenolol 100 mg po daily Metoprolol 25 mg in AM, 12.5 mg in PM 12/11 Toprol XL 25 mg qhs ACEI/ARB/ARNI Previously on Irbesartan *will consider low dose Losartan after s urgery SGLT-2 Inhibitor N/A Aldosterone Antagonist N/A 12/11 Starting Spironolactone 12.5 mg daily 12/13 increase suleman to 25 mg daily Hydralazine/Nitrate N/A Ivabradine N/A HRMT N/A *pt may benefit from BUS COMPANY MANAGER-D if EF does not improve with GDMT Anticoagulation for Afib/flutter N/A Cardiac Rehab Evaluation for LVEF <40% Will plan for upon discharge Diuretic Therapy Prior to admission dose N/A Given on admission 12/07 IV lasix 40 mg x1 Daily Dosing 12/08-12/13 Lasix 20 mg po daily Cardiomyopathy - likely secondary to ischemic etiology after recent VA - no TUGBOAT OPERATOR GDMT; will start with low dose Toprol XL and Spironolactone, consider l ow dose Losartan after surgery - pt may require BUS COMPANY MANAGER-D in outpt setting w/ LBBB on EKG NSTEMI, CAD - pt presented to OSH w/ NSTEMI; had IABP placed initially; transferred to [facility] for further management - 12/07 admit troponin >22.9>18.63>12.99>11.67> on 12/09 - CTS team planning for CABG on 12/14/20 HLD - 12/08 lipid panel: Cholesterol 215, trigs 358, HDL 30, LDL 141 - no TUGBOAT OPERATOR statins; has failed atorvastatin and rosuvastatin 5 and 10 mg with repo rts of myalgia pain (resolved after stopping) consider trial of pravastatin 5-10 mg daily as lowest side effect profile and titrate up to highest tolerated dose - currently on rosuvastatin 10 mg Q 72 hours and zetia 10 mg daily > managed per primary team DM 2 - 12/07/20 HgbA1c 5.9 - TUGBOAT OPERATOR Janumet XR on hold during admission - Sliding scale Insulin while admitted > managed per primary team CKD II - admit creatinine 0.71-->0.72 today > daily labs per primary team Subjective: She currently complains of no symptoms. She indicates she is starting to worry about pending bypass surgery. Denies having any symptoms. She currently denies shortness of breath, dyspnea on exertion, paroxysmal noctu rnal dyspnea, orthopnea, lightheadedness, positional lightheadedness, near synco pe, palpitations, chest pain, abdominal fullness, peripheral edema and weight ch jody. Objective: Vital Signs: Last Filed Vital Signs: 24 Hour Range BP: 134/65 (12/14 726) Temp: 36.3 C (97.3 F) (12/14 726) Pulse: 71 (12/14 726) Respirations: 17 PER MINUTE (12/14 726) SpO2: 96 % (12/14 726) BP: (120-140)/(65-76) Temp: [36.3 C (97.3 F)-36.9 C (98.5 F)] Pulse: [71-91] Respirations: [16 PER MINUTE-17 PER MINUTE] SpO2: [96 %-97 %] Intensity Pain Scale (Self Report): 3 (12/13/201999) Wt Readings from Last 10 Encounters: 12/14/20 58.3 kg (128 lb 9.6 oz) Physical Exam: General Appearance: thin elderly female, appears stated age, no distress Eyes: conjunctivae and lids normal, pupils are equal and round Teeth/Gums/Palate: poor dentition Lips & Oral Mucosa: no pallor or cyanosis Neck Veins: JVP ~5cm, HJR negative Chest Inspection: chest is normal in appearance Respiratory Effort: breathing comfortably, no respiratory distress Auscultation: lungs clear to auscultation, no rales or rhonchi, no wheezing Cardiac Rhythm: regular rhythm and normal rate Cardiac Auscultation: S1, S2 present but clear splitting not heard Murmurs: no murmur Radial Arteries: normal symmetric radial pulses Pedal Pulses: normal symmetric pedal pulses Lower Extremity Edema:no lower extremity edema Peripheral Circulation: distal upper and lower extremities warm, well-perfused a nd with delayed capilary refill Abdominal Exam: soft, non-tender, no masses, bowel sounds normal Muscle Strength: decreased muscle tone Orientation: oriented to time, place and person Affect & Mood: appropriate and sustained affect Language and Memory: patient responsive and seems to comprehend information Neurologic Exam: neurological assessment grossly intact and moves all extremitie s Laboratory Review: CBC w diff Lab Results Component Value Date/Time WBC 6.6 12/14/2020 04:12 AM RBC 4.11 12/14/2020 04:12 AM HGB 12.6 12/14/2020 04:12 AM HCT 37.3 12/14/2020 04:12 AM MCV 90.9 12/14/2020 04:12 AM MCH 30.6 12/14/2020 04:12 AM MCHC 33.7 12/14/2020 04:12 AM RDW 14.1 12/14/2020 04:12 AM PLTCT 238 12/14/2020 04:12 AM MPV 8.9 12/14/2020 04:12 AM Lab Results Component Value Date/Time NEUT 43 12/14/2020 04:12 AM ANC 2.82 12/14/2020 04:12 AM LYMA 41 12/14/2020 04:12 AM ALC 2.74 12/14/2020 04:12 AM IMAN 12 12/14/2020 04:12 AM AMC 0.83 (H) 12/14/2020 04:12 AM EOSA 3 12/14/2020 04:12 AM AEC 0.22 12/14/2020 04:12 AM BASA 1 12/14/2020 04:12 AM ABC 0.04 12/14/2020 04:12 AM Chemistry Lab Results Component Value Date/Time NA 141 12/14/2020 04:12 AM K 3.8 12/14/2020 04:12 AM CL 102 12/14/2020 04:12 AM CO2 24 12/14/2020 04:12 AM GAP 15 (H) 12/14/2020 04:12 AM BUN 16 12/14/2020 04:12 AM CR 0.72 12/14/2020 04:12 AM GLU 129 (H) 12/14/2020 04:12 AM Lab Results Component Value Date/Time CA 10.0 12/14/2020 04:12 AM ALBUMIN 3.8 12/14/2020 04:12 AM TOTPROT 7.0 12/14/2020 04:12 AM ALKPHOS 67 12/14/2020 04:12 AM AST 18 12/14/2020 04:12 AM ALT 10 12/14/2020 04:12 AM TOTBILI 0.7 12/14/2020 04:12 AM GFR >60 12/14/2020 04:12 AM GFRAA >60 12/14/2020 04:12 AM 12/07/20 Chest X-Ray: Improved patchy bilateral opacities likely improving pulmonary edema. Tele/ECG: SR, LBBB, HR 70s Echocardiogram Details: Echo Results (Last 3 results in the past 3 years) Echo EF LVIDD LA Size IVS LVPW Rest PAP (12/13/20) 30 (12/13/20) 6.11 (12/13/20) 3.83 (12/13/20) 0.92 (12/13/20) 0.99 (12/10/20) 34 (12/10/20) 30 (12/10/20) 5.50 (12/10/20) 3.70 (12/10/20) 1.10 (12/10/20) 0.80 12/10/20 Echo: The left ventricle is mildly dilated. Eccentric hypertrophy. The left ventric ular systolic function is moderately reduced. The visually estimated ejection fr action is 30%. There are segmental wall motion abnormalities, as coded in the di agram below. The right ventricular size is normal. The right ventricular systolic function is hyperdynamic. Normal biatrial size. No significant valvluar abnormalities. Estimated Peak Systolic PA Pressure 34 mmHg No pericardial effusion. * Rocky Stone RN - 12/14/2020 5:35 AM CDT A&Ox4.SR c BBBon tele. Adequate UOP.No BM this shift. VSS per trend. On RA. Incisions C/D/I. Heparin gtt infusing per order. Pain controlled with current regimen. Will continue to monitor Associated attestation - Marcos Crowder MD - 12/14/2020 9:58 AM CDT Up in chair, comfortable. Denied chest discomfort. Continue with IV heparin. * Tina Campos, RN - 12/13/2020 5:44 PM CDT SR/ST/BBB on tele, A/Ox4, VSS. Denies pain or SOA. Heparin gtt infusing. Ambulated laps in hallway. Offered education on post-op expectations, somewhat receptive. Cont to monitor. * Dario Webster MD - 12/13/2020 5:15 PM CDT I have seen and examined Ms. Koroma at her bedside today, along with her daught er who was present, as well as her other daughter (a nurse) via speaker phone. Ms. Koroma is a 75F who was transferred to from [facility] for evaluation for CABG in the setting of an acute NSTEMI with 3v CAD and a reduced EF. She had an IABP placed and then removed due to a technical failure of the device. Since admit to , she has demonstrated downtrending troponins and resolution of her chest ruth n. Her BNP was 900 on admission. She has been on a heparin drip. She has been se en also by Dr. Garsia and Dr. Lim. As far as her reduced EF, she underwent viabi lity study and was found to have viable myocardium. Her cath is personally reviewed. She has very tight proximal LAD disease. She jackson s a small and heavily diseased LAD with multiple areas of narrowing. She has a l arge OM that appears to be a decent target. She has a RCA that is CYBER SYSTEMS ADMINISTRATOR and backfi lls from the left. Her TTE is personally reviewed. Her EF is severely reduced and I would estimate it to be functionally less than the 30% that is estimated. Her RV appears to be working well. I discussed all of this with the patient and her family. She is at very high ris k for surgery, but there are no good PCI or medical options and she is at certai n risk for another VA, likely catastrophic without intervention. I estimate her risk of a major complication (, stroke, bleeding, VA, further surgery, need for IABP) to be 5-10%. She understands and has clearly asked to proceed. Her fa teofilo has also agreed. We will plan for surgery on Wednesday. Ideally, CABGx3. Low threshold for IABP. Dario Webster MD Information Assurance Officer Cardiothoracic Surgery Pager: [phone] * Marielos Galindo APRN-YAYO - 12/13/2020 7:57 AM CDT Images from the original note were not included. Heart Failure Progress Note NAME:Carli Koroma :1945 AGE: 75 y.o. 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 female who initially presented to outside hospit al in [place], [place] on 12/06/20 reporting chief complaint of chest pain, shortness of breath, nausea with diaphoresis. She was found to have elevated troponin with NSTEMI; went to clinical laboratory technician for IABP placement. Her IABP was placed to [facility] and de veloped a leak; therefore it was discontinued to prior to her transfer to [facility]. She was also found to have elevated BNP on 927 with reduced ejection fraction on echocardiogram. Past medical history includes HTN, HLD, DM 2. Recommendations: 1. CABG pending myocardial variability study, myocardium appears viable per mult idisciplinary discussion, plan to offer CABG early next week 2. Cont Toprol XL 25 mg qhs 3. Increased Spironolactone to 25 mg po daily (done) 4. Continue Heparin gtt; 5. Will need to start pt on ARB vs Entresto after surgery 6. Currently tolerating rosuvastatin 10 mg Q 72 hours; consider pravastatin 10 m g PO QHS (see below) 7. CTS planning for repeat echo and IABP placement prior to planned CABG Pt seen and examined; discussed with Dr Lim and Dr Jorge Galindo, STRAIGHTENER HAND-C Advanced Heart Failure and Transplant Team Available on [employer] Pager [phone] Assessment: Acute on chronic systolic HFrEF, EF: 30%. Major Complications or Comorbidities (LONGTERM): acute/ acute on chronic systolic and /or diastolic heart failure NYHA functional class III (marked limitation of physical activity - comfortable at rest, but less than ordinary activity causes symptoms of HF e.g., getting mariano ssed or standing from a sitting position), ACC Stage C (structural heart disease with prior or current symptoms of HF). She presents with signs of hypervolemia with left ventricular failure without s igns of low flow state. Admission BNP: 927 on 12/06 (OSH) Prior to admission diuretic regimen: None Intake/Output: Entire stay net: -634 mL, Last 24 hr net: -650 mL Goal Dry Weight: ~130 lbs Admission Weight: 62.8 kg (138 lb 6.4 oz) Most recent weights (inpatient): Vitals: 12/10/20 0700 12/11/20 0634 12/13/20 0600 Weight: 60.2 kg (132 lb 11.5 oz) 59.6 kg (131 lb 6.4 oz) 58.5 kg (129 lb) Guideline Based Heart Failure Therapies: GDMT TUGBOAT OPERATOR Changes BB Atenolol 100 mg po daily Metoprolol 25 mg in AM, 12.5 mg in PM 12/11 Toprol XL 25 mg qhs ACEI/ARB/ARNI Previously on Irbesartan *will consider low dose Losartan after s urgery SGLT-2 Inhibitor N/A Aldosterone Antagonist N/A 12/11 Starting Spironolactone 12.5 mg daily 12/13 increase suleman to 25 mg daily Hydralazine/Nitrate N/A Ivabradine N/A HRMT N/A *pt may benefit from BUS COMPANY MANAGER-D if EF does not improve with GDMT Anticoagulation for Afib/flutter N/A Cardiac Rehab Evaluation for LVEF <40% Will plan for upon discharge Diuretic Therapy Prior to admission dose N/A Given on admission 12/07 IV lasix 40 mg x1 Daily Dosing 12/08-12/13 Lasix 20 mg po daily Cardiomyopathy - likely secondary to ischemic etiology after recent [facility] - no TUGBOAT OPERATOR GDMT; will start with low dose Toprol XL and Spironolactone, consider l ow dose Losartan after surgery - pt may require BUS COMPANY MANAGER-D in outpt setting w/ LBBB on EKG NSTEMI, CAD - pt presented to OSH w/ NSTEMI; had IABP placed initially; transferred to [facility] for further management - 12/07 admit troponin >22.9>18.63>12.99>11.67>4/59 on 12/09 - CTS team planning for CABG HLD - 12/08 lipid panel: Cholesterol 215, trigs 358, HDL 30, LDL 141 - no TUGBOAT OPERATOR statins; has failed atorvastatin and rosuvastatin 5 and 10 mg with repo rts of myalgia pain (resolved after stopping) consider trial of pravastatin 5 or 10 mg daily as lowest side effect profile and titrate up to highest tolerated d ose > managed per primary team - currently on rosuvastatin 10 mg Q 72 hours DM 2 - 12/07/20 HgbA1c 5.9 - TUGBOAT OPERATOR Janumet XR on hold during admission > managed per primary team CKD II - admit creatinine 0.71-->0.67 today - daily labs per primary team Subjective: She currently complains of no symptoms. She currently denies shortness of breath, dyspnea on exertion, paroxysmal noctu rnal dyspnea, orthopnea, lightheadedness, positional lightheadedness, near synco pe, palpitations, chest pain, abdominal fullness, peripheral edema and weight ch jody. Objective: Allergies: Allergies Allergen Reactions Crestor [Rosuvastatin] MUSCLE PAIN Medications: Scheduled Meds:allopurinoL (ZYLOPRIM) tablet 100 mg, 100 mg, Oral, QDAY aspirin EC tablet 81 mg, 81 mg, Oral, QDAY ezetimibe (ZETIA) tablet 10 mg, 10 mg, Oral, QDAY furosemide (LASIX) tablet 20 mg, 20 mg, Oral, QDAY gabapentin (NEURONTIN) capsule 300 mg, 300 mg, Oral, QDAY(12) gabapentin (NEURONTIN) capsule 600 mg, 600 mg, Oral, QHS gabapentin (NEURONTIN) capsule 600 mg, 600 mg, Oral, QDAY(17) heparin (porcine) BOLUS for continuous inf (vial) 1,260-2,510 Units, 20-40 Units /kg, Intravenous, As Prescribed insulin aspart U-100 (NOVOLOG FLEXPEN) injection PEN 0-12 Units, 0-12 Units, Sub cutaneous, ACHS (22) metoprolol XL (TOPROL XL) tablet 25 mg, 25 mg, Oral, QHS pantoprazole DR (PROTONIX) tablet 40 mg, 40 mg, Oral, QDAY(21) rosuvastatin (CRESTOR) tablet 10 mg, 10 mg, Oral, Q72H* spironolactone (ALDACTONE) tablet 12.5 mg, 12.5 mg, Oral, QDAY Continuous Infusions: heparin (porcine) 20,000 units/D5W 500 mL infusion (std conc)(premade) 955 U nits/hr (12/13/20 0724) PRN and Respiratory Meds:acetaminophen Q4H PRN, bisacodyL QDAY PRN, calcium gluc joe IV PRN (Nutrition Services Aide from Rx) AND Ionized Calcium PRN AND Notify Physi heladio Ongoing, magnesium sulfate PRN AND [] Magnesium PRN AND Noti fy Physician Ongoing, milk of magnesia (CONC) QDAY PRN, ondansetron (ZOFRAN) IV Q6H PRN, polyethylene glycol 3350 BID PRN, senna/docusate BID PRN, sodium phosph ate IVPB PRN (Nutrition Services Aide from Rx) OR sodium phosphate IVPB PRN (Nutrition Services Aide from Rx) OR sodium phosphate IVPB PRN (Nutrition Services Aide from Rx) Medications Prior to Admission Medication Sig Dispense Refill Last Dose allopurinoL (ZYLOPRIM) 100 mg tablet Take 100 mg by mouth daily. Take with f ood. Indications: treatment to prevent acute gout attack antiox #8/om3/dha/epa/lut/zeax (PRESERVISION AREDS 2 (OMEGA-3) PO) Take 1 ta blet by mouth daily. atenoloL (TENORMIN) 100 mg tablet Take 100 mg by mouth daily. Indications: h igh blood pressure gabapentin (NEURONTIN) 300 mg capsule Take 300 mg by mouth five times daily. SITagliptin-metformin (JANUMET XR) 100-1,000 mg tablet Take 1 tablet by mout h daily. Indications: type 2 diabetes mellitus Vital Signs: Last Filed Vital Signs: 24 Hour Range BP: 156/96 (12/13 710) Temp: 36.6 C (97.8 F) (12/13 710) Pulse: 89 (12/13 710) Respirations: 16 PER MINUTE (12/13 710) SpO2: 99 % (12/13 710) BP: (107-156)/(65-96) Temp: [36.4 C (97.5 F)-37.1 C (98.7 F)] Pulse: [80-92] Respirations: [16 PER MINUTE] SpO2: [94 %-100 %] Intensity Pain Scale (Self Report): 4 (12/12/20 1225) Wt Readings from Last 10 Encounters: 12/13/20 58.5 kg (129 lb) Physical Exam: General Appearance: thin elderly female, appears stated age, no distress Eyes: conjunctivae and lids normal, pupils are equal and round Teeth/Gums/Palate: poor dentition Lips & Oral Mucosa: no pallor or cyanosis Neck Veins: JVP ~5cm, HJR negative Chest Inspection: chest is normal in appearance Respiratory Effort: breathing comfortably, no respiratory distress Auscultation: lungs clear to auscultation, no rales or rhonchi, no wheezing Cardiac Rhythm: regular rhythm and normal rate Cardiac Auscultation: S1, S2 present but clear splitting not heard Murmurs: no murmur Radial Arteries: normal symmetric radial pulses Pedal Pulses: normal symmetric pedal pulses Lower Extremity Edema:no lower extremity edema Peripheral Circulation: distal upper and lower extremities warm, well-perfused a nd with delayed capilary refill Abdominal Exam: soft, non-tender, no masses, bowel sounds normal Muscle Strength: decreased muscle tone Orientation: oriented to time, place and person Affect & Mood: appropriate and sustained affect Language and Memory: patient responsive and seems to comprehend information Neurologic Exam: neurological assessment grossly intact and moves all extremitie s Laboratory Review: CBC w diff Lab Results Component Value Date/Time WBC 6.1 12/13/2020 04:06 AM RBC 3.97 (L) 12/13/2020 04:06 AM HGB 12.5 12/13/2020 04:06 AM HCT 35.9 (L) 12/13/2020 04:06 AM MCV 90.5 12/13/2020 04:06 AM MCH 31.6 12/13/2020 04:06 AM MCHC 34.9 12/13/2020 04:06 AM RDW 14.1 12/13/2020 04:06 AM PLTCT 212 12/13/2020 04:06 AM MPV 8.5 12/13/2020 04:06 AM Lab Results Component Value Date/Time NEUT 61 12/12/2020 04:00 AM ANC 4.66 12/12/2020 04:00 AM LYMA 22 (L) 12/12/2020 04:00 AM ALC 1.65 12/12/2020 04:00 AM IMAN 14 (H) 12/12/2020 04:00 AM AMC 1.06 (H) 12/12/2020 04:00 AM EOSA 2 12/12/2020 04:00 AM AEC 0.18 12/12/2020 04:00 AM BASA 1 12/12/2020 04:00 AM ABC 0.06 12/12/2020 04:00 AM Chemistry Lab Results Component Value Date/Time NA 140 12/13/2020 04:06 AM K 3.8 12/13/2020 04:06 AM CL 101 12/13/2020 04:06 AM CO2 29 12/13/2020 04:06 AM GAP 10 12/13/2020 04:06 AM BUN 12 12/13/2020 04:06 AM CR 0.67 12/13/2020 04:06 AM GLU 139 (H) 12/13/2020 04:06 AM Lab Results Component Value Date/Time CA 9.2 12/13/2020 04:06 AM ALBUMIN 3.8 12/13/2020 04:06 AM TOTPROT 6.9 12/13/2020 04:06 AM ALKPHOS 58 12/13/2020 04:06 AM AST 15 12/13/2020 04:06 AM ALT 9 12/13/2020 04:06 AM TOTBILI 0.7 12/13/2020 04:06 AM GFR >60 12/13/2020 04:06 AM GFRAA >60 12/13/2020 04:06 AM Renal Function Lab Results Component Value Date/Time NA 140 12/13/2020 04:06 AM K 3.8 12/13/2020 04:06 AM CL 101 12/13/2020 04:06 AM CO2 29 12/13/2020 04:06 AM GAP 10 12/13/2020 04:06 AM BUN 12 12/13/2020 04:06 AM BUN 13 12/12/2020 04:00 AM BUN 14 12/11/2020 04:10 AM Lab Results Component Value Date/Time CR 0.67 12/13/2020 04:06 AM CR 0.66 12/12/2020 04:00 AM CR 0.67 12/11/2020 04:10 AM GLU 139 (H) 12/13/2020 04:06 AM CA 9.2 12/13/2020 04:06 AM ALBUMIN 3.8 12/13/2020 04:06 AM Lipid Profile INR Lab Results Component Value Date CHOL 215 (H) 12/08/2020 TRIG 358 (H) 12/08/2020 HDL 30 (L) 12/08/2020 LDL 141 (H) 12/08/2020 VLDL 72 12/08/2020 NONHDLCHOL 185 12/08/2020 Lab Results Component Value Date INR 1.2 12/13/2020 12/07/20 Chest X-Ray: Improved patchy bilateral opacities likely improving pulmonary edema. Tele/ECG: SR, LBBB, HR 79, QTc 482 Echocardiogram Details: Echo Results (Last 3 results in the past 3 years) Echo EF LVIDD LA Size IVS LVPW Rest PAP (12/10/20) 30 (12/10/20) 5.50 (12/10/20) 3.70 (12/10/20) 1.10 (12/10/20) 0.80 (12/10/20) 34 12/10/20 Echo: The left ventricle is mildly dilated. Eccentric hypertrophy. The left ventric ular systolic function is moderately reduced. The visually estimated ejection fr action is 30%. There are segmental wall motion abnormalities, as coded in the di agram below. The right ventricular size is normal. The right ventricular systolic function is hyperdynamic. Normal biatrial size. No significant valvluar abnormalities. Estimated Peak Systolic PA Pressure 34 mmHg No pericardial effusion. 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 Assessment/Plan: Neuro prn tylenol, melatonin for sleep. 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 CV NSR with left bundle, rates 80s. SBP 120-130s. Cont ASA. Per pharm, nafisa geeshan statin to 3x per week. TTE pending. EF 30% per report. Troponin 12.9->11.6-> 4.59->0.64 today. Cont lopressor to toprol XL, added spirolactone 12.5mg,per HF team. Viability study to be completed today. Plan for repeat echo before surgery. Resp 95% on RA. Cont IS, aggressive pulm toilet. PFTs completed. Renal Baseline sCr. 0.7, sCr today 0.67. Lasix 20mg daily. GI - ADAT, continue post op bowel regimen. PPI for ppx. ID Afebrile. WBC:6.1 Heme H/H stable. Platelets 212. INR 1.2. Heparin drip for NSTEMI FEN replace Mg and K to minimize the risk of cardiac arrhythmias. Insulin sl iding scale with hx of diabetes, Hg A1c 5.9. TUGBOAT OPERATOR Allopurinol. Activity Ambulating. Encourage to increase activity. Disposition: Pending dental clearance (ordered placed), panorex complete. Contin ue heparin drip. Finishing viability study today. Will need a repeat echo and a balloon pump before surgery (pending results of viability study). Prophylaxis Review: Lines: No Antibiotic Usage: No VTE: Heparin drip Urinary Catheter: No KELLEN Knight 12/13/2020 Subjective: HPI: Carli Koroma is a 75 y.o. female with hx of CAD, HTN, NSTEMI with HFrEF. Transf erred from OSH for CABG eval. REVIEW OF SYSTEMS: Review of Systems Constitutional: Negative for chills and fever. HENT: Poor dentition Respiratory: Negative for cough, sputum production and shortness of breath. Cardiovascular: Negative for chest pain and leg swelling. Gastrointestinal: Negative for abdominal pain, constipation and diarrhea. Skin: Negative for itching and rash. Neurological: Negative for dizziness, sensory change, focal weakness and weaknes s. Psychiatric/Behavioral: Negative for hallucinations and substance abuse. The pat ient is not nervous/anxious. Objective: Medications: Scheduled Meds:allopurinoL (ZYLOPRIM) tablet 100 mg, 100 mg, Oral, QDAY aspirin EC tablet 81 mg, 81 mg, Oral, QDAY ezetimibe (ZETIA) tablet 10 mg, 10 mg, Oral, QDAY furosemide (LASIX) tablet 20 mg, 20 mg, Oral, QDAY gabapentin (NEURONTIN) capsule 300 mg, 300 mg, Oral, QDAY(12) gabapentin (NEURONTIN) capsule 600 mg, 600 mg, Oral, QHS gabapentin (NEURONTIN) capsule 600 mg, 600 mg, Oral, QDAY(17) heparin (porcine) BOLUS for continuous inf (vial) 1,260-2,510 Units, 20-40 Units /kg, Intravenous, As Prescribed insulin aspart U-100 (NOVOLOG FLEXPEN) injection PEN 0-12 Units, 0-12 Units, Sub cutaneous, ACHS (22) metoprolol XL (TOPROL XL) tablet 25 mg, 25 mg, Oral, QHS pantoprazole DR (PROTONIX) tablet 40 mg, 40 mg, Oral, QDAY(21) rosuvastatin (CRESTOR) tablet 10 mg, 10 mg, Oral, Q72H* spironolactone (ALDACTONE) tablet 12.5 mg, 12.5 mg, Oral, QDAY Continuous Infusions: heparin (porcine) 20,000 units/D5W 500 mL infusion (std conc)(premade) 955 U nits/hr (12/12/20 2242) PRN and Respiratory Meds:acetaminophen Q4H PRN, bisacodyL QDAY PRN, calcium gluc joe IV PRN (Nutrition Services Aide from Rx) AND Ionized Calcium PRN AND Notify Physi heladio Ongoing, magnesium sulfate PRN AND [] Magnesium PRN AND Noti fy Physician Ongoing, milk of magnesia (CONC) QDAY PRN, ondansetron (ZOFRAN) IV Q6H PRN, polyethylene glycol 3350 BID PRN, senna/docusate BID PRN, sodium phosph ate IVPB PRN (Nutrition Services Aide from Rx) OR sodium phosphate IVPB PRN (Nutrition Services Aide from Rx) OR sodium phosphate IVPB PRN (Nutrition Services Aide from Rx) Vital Signs: Last Filed Vital Signs: 24 Hour Ra nge BP: 136/73 (12/13 299) Temp: 36.8 C (98.3 F) (12/13 299) Pulse: 88 (12/13 299) Respirations: 16 PER MINUTE (12/13 299) SpO2: 96 % (12/13 299) BP: (107-151)/(57-87) Temp: [36.4 C (97.5 F)-37.1 C (98.8 F)] Pulse: [80-92] Respirations: [16 PER MINUTE] SpO2: [94 %-100 %] Intensity Pain Scale (Self Report): 4 (12/12/20 1225) Vitals: 12/10/20 0700 12/11/20 0634 12/13/20 0600 Weight: 60.2 kg (132 lb 11.5 oz) 59.6 kg (131 lb 6.4 oz) 58.5 kg (129 lb) Intake/Output Summary: (Last 24 hours) Intake/Output Summary (Last 24 hours) at 12/13/2020 0700 Last data filed at 12/13/2020 0000 Gross per 24 hour Intake 500.83 ml Output 1150 ml Net -649.17 ml Physical Exam: Neuro: A&O x 3 Cardiovascular: RRR no rub or murmur Respiratory: CTA GI: soft, NT, + BS Extremities: No Edema Incisions: continued bruising on right groin cath/IABP site, non tender to palpa tion, c/d/i LABS: Recent Labs 12/11/20 0410 12/12/20 0400 12/13/20 0406 NA 138 140 140 K 3.7 4.0 3.8 CL 101 103 101 CO2 24 28 29 GAP 13* 9 10 BUN 14 13 12 CR 0.67 0.66 0.67 GLU 152* 158* 139* CA 9.4 9.0 9.2 ALBUMIN 3.8 3.7 3.8 Recent Labs 12/11/20 0410 12/11/20 1230 12/11/20201212/12/20 0400 12/13/20 0406 WBC 8.6 -- -- 7.6 6.1 HGB 12.6 -- -- 12.3 12.5 HCT 36.6 -- -- 35.2* 35.9* PLTCT 161 -- -- 180 212 INR 1.2 -- -- 1.2 1.2 PTT 41.8* 40.2* 48.6* 54.7* 67.8* AST 19 -- -- 17 15 ALT 8 -- -- 12 9 ALKPHOS 59 -- -- 60 58 TNI -- -- -- 0.64* -- Estimated Creatinine Clearance: 65.1 mL/min (based on SCr of 0.67 mg/dL). Vitals: 12/10/20 0700 12/11/20 0634 12/13/20 0600 Weight: 60.2 kg (132 lb 11.5 oz) 59.6 kg (131 lb 6.4 oz) 58.5 kg (129 lb) No results for input(s): PHART, PO2ART in the last 72 hours. Invalid input(s): PC02A Radiology and Other Diagnostic Procedures Review: Reviewed * Rocky Stone RN - 12/13/2020 5:20 AM CDT A&Ox4. SR c BBB on tele. Adequate UOP. No BM this shift. VSS per trend. On RA. Incisions C/D/I. Heparin gtt infusing per order. No complaints of pain. Will continue to monitor. * Luanne Almeida RN - 12/12/2020 4:56 PM CDT Assumed care at 0700. Pt A&Ox4. VSS. RA. SR c BBB on tele. Voiding adequately. BM 12/11. R groin site CDI. Heparin gtt infusing per protocol. Pt up ad sadie. Call light within reach. Will continue to monitor. * Jeimy Galeas RN - 12/12/2020 10:56 AM CDT CARDIOPULMONARY REHABILITATION INPATIENT ASSESSMENT Cardiac Rehabilitation Staff: Jeimy Galeas Discharge Date: Demographics Pre-admit Dx: Chest Pain Date of Admission: 12/07/2020 Room: [place] [id number] : 1945 Insurance: Primary: [employer] Secondary: Unknown [facility] [id number] Patient (home) Marital Status: Occupation: Unknown ED Contact: Sandra Fernandes-daughter ED Phone #: Unknown CTS: Litigation Claim Representative: Unknown Cardiac Procedures and Events VA/STEMI: 12/06/20(NSTEMI) EF: 30 % Risk Factors Risk Factors: Hypertension, Hyperlipidemia, Diabetes-type II BP: 130/57 Height: 157.5 cm (62") Weight: 59.6 kg (131 lb 6.4 oz) BMI (Calculated): 24.27 Medical History has no past medical history on file. Labs Cholesterol Date Value Ref Range Status 12/08/2020 215 (H) <200 MG/DL Final Triglycerides Date Value Ref Range Status 12/08/2020 358 (H) <150 MG/DL Final HDL Date Value Ref Range Status 12/08/2020 30 (L) >40 MG/DL Final LDL Date Value Ref Range Status 12/08/2020 141 (H) <100 mg/dL Final Hemoglobin A1C Date Value Ref Range Status 12/07/2020 5.9 4.0 - 6.0 % Final Comment: The ADA recommends that most patients with type 1 and type 2 diabetes maintain an A1c level <7%. Troponin-I Date Value Ref Range Status 12/12/2020 0.64 (H) 0.0 - 0.05 NG/ML Final Heart Resource Manual Given: Teaching Completed: Outpatient Cardiopulmonary Rehabilitation Outpatient [facility] Rehab: Referral Faxed to: Date Faxed: Location: If [facility], Sent to Staff: Jeimy Galeas RN 12/12/2020 * Irvin Barnett - 12/12/2020 10:36 AM CDT 12/12/20 1000 Cardiac Rehab Activity Comments Patient denied ambullation. Going for test this morning will check back with her later this AM. 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 Patient's daughter at bedside. Assessment/Plan: Neuro prn tylenol, melatonin for sleep. 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 CV NSR with left bundle, rates 80s. SBP 120-130s. Cont ASA. Per pharmnafisa geehsan statin to 3x per week. TTE pending. EF 30% per report. Troponin 12.9->11.6-> 4.59->0.64 today. HF consult changed lopressor to toprol XL, added spirolactone 12.5mg, appreciate recs. Viability study to be completed today. Plan for repeat echo before surgery. Resp 95% on RA. Cont IS, aggressive pulm toilet. PFTs completed. Renal Baseline sCr. 0.7, sCr today 0.67. Lasix 20mg daily. GI - ADAT, continue post op bowel regimen. PPI for ppx. ID Afebrile. WBC:12.3 Heme H/H stable. Platelets 180. INR 1.2. Heparin drip for NSTEMI FEN replace Mg and K to minimize the risk of cardiac arrhythmias. Insulin sl iding scale with hx of diabetes, Hg A1c 5.9. TUGBOAT OPERATOR Allopurinol. Activity Ambulating. Encourage to increase activity. Disposition: Pending dental clearance (ordered placed), panorex complete. Contin ue heparin drip.Plan for viability study today. Will need a repeat echo and a ba lloon pump before surgery (pending results of viability study). Prophylaxis Review: Lines: No Antibiotic Usage: No VTE: Heparin drip Urinary Catheter: No KELLEN Knight 12/12/2020 Subjective: HPI: Carli Koroma is a 75 y.o. female with hx of CAD, HTN, NSTEMI with HFrEF. Transf erred from OSH for CABG eval. REVIEW OF SYSTEMS: Review of Systems Constitutional: Negative for chills and fever. HENT: Poor dentition Respiratory: Negative for cough, sputum production and shortness of breath. Cardiovascular: Negative for chest pain and leg swelling. Gastrointestinal: Negative for abdominal pain, constipation and diarrhea. Skin: Negative for itching and rash. Neurological: Negative for dizziness, sensory change, focal weakness and weaknes s. Psychiatric/Behavioral: Negative for hallucinations and substance abuse. The pat ient is not nervous/anxious. Objective: Medications: Scheduled Meds:allopurinoL (ZYLOPRIM) tablet 100 mg, 100 mg, Oral, QDAY aspirin EC tablet 81 mg, 81 mg, Oral, QDAY furosemide (LASIX) tablet 20 mg, 20 mg, Oral, QDAY gabapentin (NEURONTIN) capsule 300 mg, 300 mg, Oral, QDAY(12) gabapentin (NEURONTIN) capsule 600 mg, 600 mg, Oral, QHS gabapentin (NEURONTIN) capsule 600 mg, 600 mg, Oral, QDAY(17) heparin (porcine) BOLUS for continuous inf (vial) 1,260-2,510 Units, 20-40 Units /kg, Intravenous, As Prescribed insulin aspart U-100 (NOVOLOG FLEXPEN) injection PEN 0-12 Units, 0-12 Units, Sub cutaneous, ACHS (22) metoprolol XL (TOPROL XL) tablet 25 mg, 25 mg, Oral, QHS pantoprazole DR (PROTONIX) tablet 40 mg, 40 mg, Oral, QDAY(21) rosuvastatin (CRESTOR) tablet 10 mg, 10 mg, Oral, Q72H* spironolactone (ALDACTONE) tablet 12.5 mg, 12.5 mg, Oral, QDAY Continuous Infusions: heparin (porcine) 20,000 units/D5W 500 mL infusion (std conc)(premade) 955 U nits/hr (12/12/20 0529) PRN and Respiratory Meds:acetaminophen Q4H PRN, bisacodyL QDAY PRN, calcium gluc joe IV PRN (Nutrition Services Aide from Rx) AND Ionized Calcium PRN AND Notify Physi heladio Ongoing, magnesium sulfate PRN AND [] Magnesium PRN AND Noti fy Physician Ongoing, milk of magnesia (CONC) QDAY PRN, ondansetron (ZOFRAN) IV Q6H PRN, polyethylene glycol 3350 BID PRN, senna/docusate BID PRN, sodium phosph ate IVPB PRN (Nutrition Services Aide from Rx) OR sodium phosphate IVPB PRN (Nutrition Services Aide from Rx) OR sodium phosphate IVPB PRN (Nutrition Services Aide from Rx) Vital Signs: Last Filed Vital Signs: 24 Hour Ra nge BP: 130/57 (12/13 731) Temp: 37.1 C (98.8 F) (12/13 731) Pulse: 82 (12/13 731) Respirations: 16 PER MINUTE (12/13 731) SpO2: 97 % (12/13 731) BP: (125-146)/(57-82) Temp: [36.3 C (97.4 F)-37.1 C (98.8 F)] Pulse: [75-99] Respirations: [16 PER MINUTE-18 PER MINUTE] SpO2: [93 %-98 %] Intensity Pain Scale (Self Report): 7 (12/11/20 1630) Vitals: 12/10/20 0400 12/10/20 0700 12/11/20 0634 Weight: 60.2 kg (132 lb 12.8 oz) 60.2 kg (132 lb 11.5 oz) 59.6 kg (131 lb 6.4 oz ) Intake/Output Summary: (Last 24 hours) Intake/Output Summary (Last 24 hours) at 12/12/2020 0832 Last data filed at 12/12/2020 0800 Gross per 24 hour Intake 920.41 ml Output 1500 ml Net -579.59 ml Physical Exam: Neuro: A&O x 3 Cardiovascular: RRR no rub or murmur Respiratory: CTA GI: soft, NT, + BS Extremities: No Edema Incisions: right groin cath/IABP site without hematoma c/d/i LABS: Recent Labs 12/10/20 0406 12/11/20 0410 12/12/20 0400 NA 139 138 140 K 3.8 3.7 4.0 CL 101 101 103 CO2 26 24 28 GAP 12 13* 9 BUN 16 14 13 CR 0.72 0.67 0.66 GLU 151* 152* 158* CA 9.3 9.4 9.0 ALBUMIN 4.0 3.8 3.7 Recent Labs 12/10/20 0406 12/11/20 0410 12/11/20 1230 12/11/20201212/12/20 0400 WBC 9.1 8.6 -- -- 7.6 HGB 13.1 12.6 -- -- 12.3 HCT 37.6 36.6 -- -- 35.2* PLTCT 177 161 -- -- 180 INR 1.1 1.2 -- -- 1.2 PTT 46.9* 41.8* 40.2* 48.6* 54.7* AST 26 19 -- -- 17 ALT 11 8 -- -- 12 ALKPHOS 62 59 -- -- 60 TNI -- -- -- -- 0.64* Estimated Creatinine Clearance: 66.3 mL/min (based on SCr of 0.66 mg/dL). Vitals: 12/10/20 0400 12/10/20 0712/11/20 0634 Weight: 60.2 kg (132 lb 12.8 oz) 60.2 kg (132 lb 11.5 oz) 59.6 kg (131 lb 6.4 oz ) No results for input(s): PHART, PO2ART in the last 72 hours. Invalid input(s): PC02A Radiology and Other Diagnostic Procedures Review: Reviewed * Lucina Cueto RN - 12/12/2020 8:04 AM CDT Assumed care at 1900 A&O x4 SR c BBB on Tele Tolerating RA Adequate UOP Last BM 12/11 Pain adequately controlled with tylenol Surgical incision C/D/I Heparin infusing per orders NPO since 0000 No other needs voiced at this time Call light within reach Assessments completed and documented per flowsheet * Marielos Galindo APRN-STRAIGHTENER HAND - 12/12/2020 7:45 AM CDT Images from the original note were not included. Heart Failure Progress Note NAME:Carli Koroma :1945 AGE: 75 y.o. 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 female who initially presented to outside hospit al in [place], [place] on 12/06/20 reporting chief complaint of chest pain, shortness of breath, nausea with diaphoresis. She was found to have elevated troponin with NSTEMI; went to clinical laboratory technician for IABP placement. Her IABP was placed to SFA and de veloped a leak; therefore it was discontinued to prior to her transfer to [facility]. She was also found to have elevated BNP on 927 with reduced ejection fraction on echocardiogram. Past medical history includes HTN, HLD, DM 2. Recommendations: 1. Reviewed EKG, NSR with chronic LBBB 2. Cont Toprol XL 25 mg qhs 3. Cont Spironolactone 12.5 mg po daily 4. Continue Heparin gtt; pt will need lipid management after bypass surgery comp leted 5. Will need to start pt on ARB vs Entresto after surgery 6. CTS planning for repeat echo and IABP placement prior to planned CABG Pt seen and examined; discussed with Dr Carina Galindo, STRAIGHTENER HAND-C Advanced Heart Failure and Transplant Team Available on Voal[employer] Pager [phone] Assessment: Acute on chronic systolic HFrEF, EF: 30%. Major Complications or Comorbidities (LONGTERM): acute/ acute on chronic systolic and /or diastolic heart failure NYHA functional class III (marked limitation of physical activity - comfortable at rest, but less than ordinary activity causes symptoms of HF e.g., getting mariano ssed or standing from a sitting position), ACC Stage C (structural heart disease with prior or current symptoms of HF). She presents with signs of hypervolemia with left ventricular failure without s igns of low flow state. Admission BNP: 927 on 12/06 (OSH) Prior to admission diuretic regimen: None Intake/Output: Entire stay net: -58 mL, Last 24 hr net: +683 mL Goal Dry Weight: ~130 lbs Admission Weight: 62.8 kg (138 lb 6.4 oz) Most recent weights (inpatient): Vitals: 12/10/20 0400 12/10/20 0700 12/11/20 0634 Weight: 60.2 kg (132 lb 12.8 oz) 60.2 kg (132 lb 11.5 oz) 59.6 kg (131 lb 6.4 oz ) Guideline Based Heart Failure Therapies: GDMT TUGBOAT OPERATOR Changes BB Atenolol 100 mg po daily Metoprolol 25 mg in AM, 12.5 mg in PM 12/11 Toprol XL 25 mg qhs ACEI/ARB/ARNI Previously on Irbesartan *will consider low dose Losartan after s urgery SGLT-2 Inhibitor N/A Aldosterone Antagonist N/A 12/11 Starting Spironolactone 12.5 mg daily Hydralazine/Nitrate N/A Ivabradine N/A HRMT N/A *pt may benefit from BUS COMPANY MANAGER-D if EF does not improve with GDMT Anticoagulation for Afib/flutter N/A Cardiac Rehab Evaluation for LVEF <40% Will plan for upon discharge Diuretic Therapy Prior to admission dose N/A Given on admission 12/07 IV lasix 40 mg x1 Daily Dosing 12/08-12/11 Lasix 20 mg po daily Cardiomyopathy - likely secondary to ischemic etiology after recent [facility] - no TUGBOAT OPERATOR GDMT; will start with low dose Toprol XL and Spironolactone, consider l ow dose Losartan after surgery - pt may require BUS COMPANY MANAGER-D in outpt setting w/ LBBB on EKG NSTEMI, CAD - pt presented to OSH w/ NSTEMI; had IABP placed initially; transferred to [facility] for further management - 12/07 admit troponin >22.9>18.63>12.99>11.67>4/59 on 12/09 - CTS team planning for CABG HLD - 12/08 lipid panel: Cholesterol 215, trigs 358, HDL 30, LDL 141 - no TUGBOAT OPERATOR statins; will need to be initiated on statin therapy - pt reports she's not tolerated crestor in the past > managed per primary team DM 2 - 12/07/20 HgbA1c 5.9 - TUGBOAT OPERATOR Janumet XR on hold during admission > managed per primary team CKD II - admit creatinine 0.71-->0.67 today - daily labs per primary team Subjective: She currently complains of fatigue. She currently denies shortness of breath, dyspnea on exertion, paroxysmal noctu rnal dyspnea, orthopnea, lightheadedness, positional lightheadedness, near synco pe, palpitations, chest pain, abdominal fullness, peripheral edema and weight ch jody. Objective: Allergies: Allergies Allergen Reactions Crestor [Rosuvastatin] MUSCLE PAIN Medications: Scheduled Meds:allopurinoL (ZYLOPRIM) tablet 100 mg, 100 mg, Oral, QDAY aspirin EC tablet 81 mg, 81 mg, Oral, QDAY furosemide (LASIX) tablet 20 mg, 20 mg, Oral, QDAY gabapentin (NEURONTIN) capsule 300 mg, 300 mg, Oral, QDAY(12) gabapentin (NEURONTIN) capsule 600 mg, 600 mg, Oral, QHS gabapentin (NEURONTIN) capsule 600 mg, 600 mg, Oral, QDAY(17) heparin (porcine) BOLUS for continuous inf (vial) 1,260-2,510 Units, 20-40 Units /kg, Intravenous, As Prescribed insulin aspart U-100 (NOVOLOG FLEXPEN) injection PEN 0-12 Units, 0-12 Units, Sub cutaneous, ACHS (22) metoprolol XL (TOPROL XL) tablet 25 mg, 25 mg, Oral, QHS pantoprazole DR (PROTONIX) tablet 40 mg, 40 mg, Oral, QDAY(21) spironolactone (ALDACTONE) tablet 12.5 mg, 12.5 mg, Oral, QDAY Continuous Infusions: heparin (porcine) 20,000 units/D5W 500 mL infusion (std conc)(premade) 955 U nits/hr (12/12/20 0529) PRN and Respiratory Meds:acetaminophen Q4H PRN, bisacodyL QDAY PRN, calcium gluc joe IV PRN (Nutrition Services Aide from Rx) AND Ionized Calcium PRN AND Notify Physi heladio Ongoing, magnesium sulfate PRN AND [] Magnesium PRN AND Noti fy Physician Ongoing, milk of magnesia (CONC) QDAY PRN, ondansetron (ZOFRAN) IV Q6H PRN, polyethylene glycol 3350 BID PRN, senna/docusate BID PRN, sodium phosph ate IVPB PRN (Nutrition Services Aide from Rx) OR sodium phosphate IVPB PRN (Nutrition Services Aide from Rx) OR sodium phosphate IVPB PRN (Nutrition Services Aide from Rx) Medications Prior to Admission Medication Sig Dispense Refill Last Dose allopurinoL (ZYLOPRIM) 100 mg tablet Take 100 mg by mouth daily. Take with f ood. Indications: treatment to prevent acute gout attack antiox #8/om3/dha/epa/lut/zeax (PRESERVISION AREDS 2 (OMEGA-3) PO) Take 1 ta blet by mouth daily. atenoloL (TENORMIN) 100 mg tablet Take 100 mg by mouth daily. Indications: h igh blood pressure gabapentin (NEURONTIN) 300 mg capsule Take 300 mg by mouth five times daily. SITagliptin-metformin (JANUMET XR) 100-1,000 mg tablet Take 1 tablet by mout h daily. Indications: type 2 diabetes mellitus Vital Signs: Last Filed Vital Signs: 24 Hour Range BP: 130/57 (12/13 731) Temp: 37.1 C (98.8 F) (12/13 731) Pulse: 82 (12/13 731) Respirations: 16 PER MINUTE (12/13 731) SpO2: 97 % (12/13 731) BP: (125-146)/(57-82) Temp: [36.3 C (97.4 F)-37.1 C (98.8 F)] Pulse: [75-99] Respirations: [16 PER MINUTE-18 PER MINUTE] SpO2: [93 %-98 %] Intensity Pain Scale (Self Report): 7 (12/11/20 1630) Wt Readings from Last 10 Encounters: 12/11/20 59.6 kg (131 lb 6.4 oz) Physical Exam: General Appearance: thin elderly female, appears stated age, no distress Eyes: conjunctivae and lids normal, pupils are equal and round Teeth/Gums/Palate: poor dentition Lips & Oral Mucosa: no pallor or cyanosis Neck Veins: JVP ~5cm, HJR negative Chest Inspection: chest is normal in appearance Respiratory Effort: breathing comfortably, no respiratory distress Auscultation: lungs clear to auscultation, no rales or rhonchi, no wheezing Cardiac Rhythm: regular rhythm and normal rate Cardiac Auscultation: S1, S2 present but clear splitting not heard Murmurs: no murmur Radial Arteries: normal symmetric radial pulses Pedal Pulses: normal symmetric pedal pulses Lower Extremity Edema:no lower extremity edema Peripheral Circulation: distal upper and lower extremities warm, well-perfused a nd with delayed capilary refill Abdominal Exam: soft, non-tender, no masses, bowel sounds normal Muscle Strength: decreased muscle tone Orientation: oriented to time, place and person Affect & Mood: appropriate and sustained affect Language and Memory: patient responsive and seems to comprehend information Neurologic Exam: neurological assessment grossly intact and moves all extremitie s Laboratory Review: CBC w diff Lab Results Component Value Date/Time WBC 7.6 12/12/2020 04:00 AM RBC 3.94 (L) 12/12/2020 04:00 AM HGB 12.3 12/12/2020 04:00 AM HCT 35.2 (L) 12/12/2020 04:00 AM MCV 89.4 12/12/2020 04:00 AM MCH 31.4 12/12/2020 04:00 AM MCHC 35.1 12/12/2020 04:00 AM RDW 14.2 12/12/2020 04:00 AM PLTCT 180 12/12/2020 04:00 AM MPV 8.6 12/12/2020 04:00 AM Lab Results Component Value Date/Time NEUT 61 12/12/2020 04:00 AM ANC 4.66 12/12/2020 04:00 AM LYMA 22 (L) 12/12/2020 04:00 AM ALC 1.65 12/12/2020 04:00 AM IMAN 14 (H) 12/12/2020 04:00 AM AMC 1.06 (H) 12/12/2020 04:00 AM EOSA 2 12/12/2020 04:00 AM AEC 0.18 12/12/2020 04:00 AM BASA 1 12/12/2020 04:00 AM ABC 0.06 12/12/2020 04:00 AM Chemistry Lab Results Component Value Date/Time NA 140 12/12/2020 04:00 AM K 4.0 12/12/2020 04:00 AM CL 103 12/12/2020 04:00 AM CO2 28 12/12/2020 04:00 AM GAP 9 12/12/2020 04:00 AM BUN 13 12/12/2020 04:00 AM CR 0.66 12/12/2020 04:00 AM GLU 158 (H) 12/12/2020 04:00 AM Lab Results Component Value Date/Time CA 9.0 12/12/2020 04:00 AM ALBUMIN 3.7 12/12/2020 04:00 AM TOTPROT 6.9 12/12/2020 04:00 AM ALKPHOS 60 12/12/2020 04:00 AM AST 17 12/12/2020 04:00 AM ALT 12 12/12/2020 04:00 AM TOTBILI 0.7 12/12/2020 04:00 AM GFR >60 12/12/2020 04:00 AM GFRAA >60 12/12/2020 04:00 AM Renal Function Lab Results Component Value Date/Time NA 140 12/12/2020 04:00 AM K 4.0 12/12/2020 04:00 AM CL 103 12/12/2020 04:00 AM CO2 28 12/12/2020 04:00 AM GAP 9 12/12/2020 04:00 AM BUN 13 12/12/2020 04:00 AM BUN 14 12/11/2020 04:10 AM BUN 16 12/10/2020 04:06 AM Lab Results Component Value Date/Time CR 0.66 12/12/2020 04:00 AM CR 0.67 12/11/2020 04:10 AM CR 0.72 12/10/2020 04:06 AM GLU 158 (H) 12/12/2020 04:00 AM CA 9.0 12/12/2020 04:00 AM ALBUMIN 3.7 12/12/2020 04:00 AM Lipid Profile INR Lab Results Component Value Date CHOL 215 (H) 12/08/2020 TRIG 358 (H) 12/08/2020 HDL 30 (L) 12/08/2020 LDL 141 (H) 12/08/2020 VLDL 72 12/08/2020 NONHDLCHOL 185 12/08/2020 Lab Results Component Value Date INR 1.2 12/12/2020 12/07/20 Chest X-Ray: Improved patchy bilateral opacities likely improving pulmonary edema. Tele/ECG: SR, LBBB, HR 79, QTc 482 Echocardiogram Details: Echo Results (Last 3 results in the past 3 years) Echo EF LVIDD LA Size IVS LVPW Rest PAP (12/10/20) 30 (12/10/20) 5.50 (12/10/20) 3.70 (12/10/20) 1.10 (12/10/20) 0.80 (12/10/20) 34 12/10/20 Echo: The left ventricle is mildly dilated. Eccentric hypertrophy. The left ventric ular systolic function is moderately reduced. The visually estimated ejection fr action is 30%. There are segmental wall motion abnormalities, as coded in the di agram below. The right ventricular size is normal. The right ventricular systolic function is hyperdynamic. Normal biatrial size. No significant valvluar abnormalities. Estimated Peak Systolic PA Pressure 34 mmHg No pericardial effusion. Marielos Galindo, STRAIGHTENER HAND-C Advanced Heart Failure [facility] Pager [phone] * Nati Camejo, PREETHI - 12/11/2020 4:51 PM CDT Assessments complete and documented per flowsheet. A/Ox4. VSS. Tolerating RA. SR c BBB on tele. Denies pain, denies nausea. Right groin incision clean, dry and open to air. Ambulating in galindo with family assist x1 for IV pole, entire day up to chair. UOA, last BM 12/08 - PRN bowel reg added and administered today. Hep gtt infusing per MAR, subtherapeutic and adjusted per protocol. Call light within reach, will continue to monitor until transferring care to [facility] shift RN. * Prabhu Encarnacion - 12/11/2020 2:40 PM CDT PHYSICAL THERAPY MOBILITY NOTE Name: Carli Koroma : 1945 Age: [age] y.o. Admission Date: 12/07/2020 LOS: 4 days Mobility Patient was assigned for activity with the mobility aide by the supervising everett toure. Patient declined to participate despite encouragement; pt recently walke d 1 lap with family. Will continue to monitor. Drying Room Operator: Prabhu Encarnacion Date: 12/11/2020 * Sis Hopper, PT - 12/11/2020 10:53 AM CDT PHYSICAL THERAPY NOTE Name: Carli Koroma : 1945 Age: [age] y.o. Admission Date: 12/07/2020 LOS: 4 days Patient seen this AM at bedside, upon arrival to room patient up in chair with f carlotay present. Reports up ambulating at least 3 laps around the unit daily with no DME or physical assistance needed, staff present to manage lines only. Jessicaen t with no mobility concerns at this time reporting just completing a lap not brandon g ago. PT will continue to follow-up and monitor patient as ongoing work-up for potential CABG this admission. 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 She re ports some muscle pain with crestor and has tried all of the statins TUGBOAT OPERATOR. Assessment/Plan: Neuro prn tylenol, melatonin for sleep. 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 CV NSR with left bundle, rates 80-101s. SBP 120-147. Cont ASA. Changing sta tin, appreciate pharm recs. TTE pending. EF 30% per report. Troponin down-trendi ng (12.9->11.6->4.59 today). Resp 95% on RA. Cont IS, aggressive pulm toilet. PFTs completed. Renal Baseline sCr. 0.7. sCr today 0.67. Lasix 20mg daily. GI - ADAT, continue post op bowel regimen. PPI for ppx. ID Afebrile. WBC: 8.6 Heme H/H stable. Platelets 161. INR 1.1. Heparin drip for NSTEMI FEN replace Mg and K to minimize the risk of cardiac arrhythmias. Insulin sl iding scale with hx of diabetes, Hg A1c 5.9. TUGBOAT OPERATOR Allopurinol. Activity Ambulating. Encourage to increase activity. Disposition: Ordered dental clearance, panorex complete. Dc statin, pending phar m recs for alternative. Tolerating BB well. NSTEMI rest, Sun and Jorge to disc uss timing of CABG. Denies chest pain. Continue heparin drip. Prophylaxis Review: Lines: No Antibiotic Usage: No VTE: Heparin drip Urinary Catheter: No KELLEN Knight 12/11/2020 Subjective: HPI: Carli Koroma is a 75 y.o. female with hx of CAD, HTN, NSTEMI with HFrEF. Transf erred from OSH for CABG eval. REVIEW OF SYSTEMS: Review of Systems Constitutional: Negative for chills and fever. HENT: Poor dentition Respiratory: Negative for cough, sputum production and shortness of breath. Cardiovascular: Negative for chest pain and leg swelling. Gastrointestinal: Negative for abdominal pain, constipation and diarrhea. Skin: Negative for itching and rash. Neurological: Negative for dizziness, sensory change, focal weakness and weaknes s. Psychiatric/Behavioral: Negative for hallucinations and substance abuse. The pat ient is not nervous/anxious. Objective: Medications: Scheduled Meds:allopurinoL (ZYLOPRIM) tablet 100 mg, 100 mg, Oral, QDAY aspirin EC tablet 81 mg, 81 mg, Oral, QDAY furosemide (LASIX) tablet 20 mg, 20 mg, Oral, QDAY gabapentin (NEURONTIN) capsule 300 mg, 300 mg, Oral, QDAY(12) gabapentin (NEURONTIN) capsule 600 mg, 600 mg, Oral, QHS gabapentin (NEURONTIN) capsule 600 mg, 600 mg, Oral, QDAY(17) heparin (porcine) BOLUS for continuous inf (vial) 1,260-2,510 Units, 20-40 Units /kg, Intravenous, As Prescribed insulin aspart U-100 (NOVOLOG FLEXPEN) injection PEN 0-12 Units, 0-12 Units, Sub cutaneous, ACHS (22) metoprolol tartrate (LOPRESSOR) tablet 12.5 mg, 12.5 mg, Oral, QDAY metoprolol tartrate (LOPRESSOR) tablet 25 mg, 25 mg, Oral, QDAY pantoprazole DR (PROTONIX) tablet 40 mg, 40 mg, Oral, QDAY(21) Continuous Infusions: heparin (porcine) 20,000 units/D5W 500 mL infusion (std conc)(premade) 855 U nits/hr (12/11/20 0721) PRN and Respiratory Meds:acetaminophen Q4H PRN, bisacodyL QDAY PRN, calcium gluc joe IV PRN (Nutrition Services Aide from Rx) AND Ionized Calcium PRN AND Notify Physi heladio Ongoing, magnesium sulfate PRN AND Magnesium PRN AND Notify Physici an Ongoing, milk of magnesia (CONC) QDAY PRN, ondansetron (ZOFRAN) IV Q6H PRN, p olyethylene glycol 3350 BID PRN, senna/docusate BID PRN, sodium phosphate IVPB PRN (Nutrition Services Aide from Rx) OR sodium phosphate IVPB PRN (Nutrition Services Aide from Rx) OR sodium phosphate IVPB PRN (Nutrition Services Aide from Rx) Vital Signs: Last Filed Vital Signs: 24 Hour Ra nge BP: 106/63 (12/11 736) Temp: 37.2 C (98.9 F) (12/11 736) Pulse: 91 (12/11 736) Respirations: 16 PER MINUTE (12/11 736) SpO2: 94 % (12/11 736) BP: (106-137)/(53-78) Temp: [36.5 C (97.7 F)-37.2 C (98.9 F)] Pulse: [77-103] Respirations: [16 PER MINUTE] SpO2: [93 %-95 %] Intensity Pain Scale (Self Report): 9 (12/10/20 1730) Vitals: 12/10/20 0400 12/10/20 0700 12/11/20 0634 Weight: 60.2 kg (132 lb 12.8 oz) 60.2 kg (132 lb 11.5 oz) 59.6 kg (131 lb 6.4 oz ) Intake/Output Summary: (Last 24 hours) Intake/Output Summary (Last 24 hours) at 12/11/2020 0805 Last data filed at 12/11/2020 0500 Gross per 24 hour Intake 1141.56 ml Output 1200 ml Net -58.44 ml Physical Exam: Neuro: A&O x 3 Cardiovascular: RRR no rub or murmur Respiratory: diminished bases GI: soft, NT, hypoactive BS Extremities: No Edema Incisions: right groin cath/IABP site without hematoma c/d/i LABS: Recent Labs 12/09/20 0441 12/10/20 0406 12/11/20 0410 NA 138 139 138 K 3.7 3.8 3.7 CL 101 101 101 CO2 28 26 24 GAP 9 12 13* BUN 20 16 14 CR 0.70 0.72 0.67 GLU 147* 151* 152* CA 9.3 9.3 9.4 ALBUMIN 3.7 4.0 3.8 Recent Labs 12/09/20 0441 12/10/20 0406 12/11/20 0410 WBC 8.7 9.1 8.6 HGB 12.9 13.1 12.6 HCT 37.6 37.6 36.6 PLTCT 184 177 161 INR 1.1 1.1 1.2 PTT 53.6* 46.9* 41.8* AST 35 26 19 ALT 13 11 8 ALKPHOS 59 62 59 TNI 4.59* -- -- Estimated Creatinine Clearance: 66.3 mL/min (based on SCr of 0.67 mg/dL). Vitals: 12/10/20 0400 12/10/20 0700 12/11/20 0634 Weight: 60.2 kg (132 lb 12.8 oz) 60.2 kg (132 lb 11.5 oz) 59.6 kg (131 lb 6.4 oz ) No results for input(s): PHART, PO2ART in the last 72 hours. Invalid input(s): PC02A Radiology and Other Diagnostic Procedures Review: Reviewed T * Montserrat Rincon, RN - 12/11/2020 7:28 AM CDT Received order for Cardiac Rehab Evaluation. Per chart review, pt is being worke d up for CABG. We will continue to follow along and see pt following CABG. * Lucina Cueto RN - 12/11/2020 6:48 AM CDT Assumed care at 1900 A&O x4 SR c BBB on Tele Tolerating RA Adequate UOP Last BM 7/4 Pain adequately controlled with tylenol Surgical incision C/D/I Heparin gtt infusing per orders No other needs voiced at this time Call light within reach Assessments completed and documented per flowsheet * Nati Camejo RN - 12/10/2020 3:38 PM CDT Assessments complete and documented per flowsheet. A/Ox4. VSS. Tolerating RA. SR c BBB on tele. Denies pain. Denies nausea. Right groin incision clean, dry, and open to air with bruising and surrounding t issue soft to palpation. Ambulating in galindo with family assist x1 for IV pole. UOA, last BM 12/08 per pt report. Hep gtt infusing per MAR and therapeutic. Call light within reach, will continue to monitor until transferring care to [facility] shift RN. [phone] Addendum: Pt reports 02/14 myalgia similar to previous crestor side effect d espite decreased dose this AM. SYuliet notified. Orders for PRN tylenol. Indica tion that team would review for further admin plan. 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 Assessment/Plan: Neuro prn tylenol, melatonin for sleep. 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 CV NSR with left bundle, rates 80-101s. SBP 120-147. Cont ASA, Crestor. Inc reased BB to 37.5mg. TTE pending. EF 30% per report. Troponin down-trending (12. 9->11.6->4.59 today). Resp 95% on RA. Cont IS, aggressive pulm toilet. PFTs completed. Renal Baseline sCr. 0.7. sCr today 0.70. Lasix 20mg daily. GI - ADAT, continue post op bowel regimen. PPI for ppx. ID Afebrile. WBC: 9.1 Heme H/H stable. Platelets 177. INR 1.1. Heparin drip for NSTEMI FEN replace Mg and K to minimize the risk of cardiac arrhythmias. Insulin sl iding scale with hx of diabetes, Hg A1c 5.9. TUGBOAT OPERATOR Allopurinol. Activity Ambulating. Encourage to increase activity. Disposition: Increased BB. Still awaiting CABG- need to determine timing of surg nanci after work-up complete. Still pending TTE, carotids, and vein mapping (order ed). Troponin trending down. Denies chest pain. Continue heparin drip. Prophylaxis Review: Lines: No Antibiotic Usage: No VTE: Heparin drip Urinary Catheter: No KELLEN Knight 12/10/2020 Subjective: HPI: Carli Koroma is a 75 y.o. female with hx of CAD, HTN, NSTEMI with HFrEF. Transf erred from OSH for CABG eval. REVIEW OF SYSTEMS: Review of Systems Constitutional: Negative for chills and fever. HENT: Poor dentition Respiratory: Negative for cough, sputum production and shortness of breath. Cardiovascular: Negative for chest pain and leg swelling. Gastrointestinal: Negative for abdominal pain, constipation and diarrhea. Skin: Negative for itching and rash. Neurological: Negative for dizziness, sensory change, focal weakness and weaknes s. Psychiatric/Behavioral: Negative for hallucinations and substance abuse. The pat ient is not nervous/anxious. Objective: Medications: Scheduled Meds:allopurinoL (ZYLOPRIM) tablet 100 mg, 100 mg, Oral, QDAY aspirin EC tablet 81 mg, 81 mg, Oral, QDAY furosemide (LASIX) tablet 20 mg, 20 mg, Oral, QDAY gabapentin (NEURONTIN) capsule 300 mg, 300 mg, Oral, QDAY(12) gabapentin (NEURONTIN) capsule 600 mg, 600 mg, Oral, QHS gabapentin (NEURONTIN) capsule 600 mg, 600 mg, Oral, QDAY(17) heparin (porcine) BOLUS for continuous inf (vial) 1,260-2,510 Units, 20-40 Units /kg, Intravenous, As Prescribed insulin aspart U-100 (NOVOLOG FLEXPEN) injection PEN 0-12 Units, 0-12 Units, Sub cutaneous, ACHS (22) metoprolol tartrate (LOPRESSOR) tablet 12.5 mg, 12.5 mg, Oral, BID pantoprazole DR (PROTONIX) tablet 40 mg, 40 mg, Oral, QDAY(21) rosuvastatin (CRESTOR) tablet 20 mg, 20 mg, Oral, QDAY Continuous Infusions: heparin (porcine) 20,000 units/D5W 500 mL infusion (std conc)(premade) 755 U nits/hr (12/10/20 0708) PRN and Respiratory Meds:calcium gluconate IV PRN (Nutrition Services Aide from Rx) AND Ion ized Calcium PRN AND Notify Physician Ongoing, magnesium sulfate PRN AND Magnesium PRN AND Notify Physician Ongoing, ondansetron (ZOFRAN) IV Q6H PRN, sodium phosphate IVPB PRN (Nutrition Services Aide from Rx) OR sodium phosphate IVPB PRN (Nutrition Services Aide from Rx) OR sodium phosphate IVPB PRN (Nutrition Services Aide from Rx) Vital Signs: Last Filed Vital Signs: 24 Hour Ra nge BP: 132/74 (12/10 699) Temp: 36.9 C (98.5 F) (12/10 699) Pulse: 93 (12/10 699) Respirations: 16 PER MINUTE (12/10 699) SpO2: 98 % (12/10 699) BP: (126-147)/(62-82) Temp: [36.5 C (97.7 F)-37.1 C (98.8 F)] Pulse: [76-101] Respirations: [16 PER MINUTE-18 PER MINUTE] SpO2: [94 %-98 %] Vitals: 12/08/20 0600 12/09/20 0636 12/10/20 0400 Weight: 60.4 kg (133 lb 3.2 oz) 57.2 kg (126 lb 3.2 oz) 60.2 kg (132 lb 12.8 oz) Intake/Output Summary: (Last 24 hours) Intake/Output Summary (Last 24 hours) at 12/10/2020 0737 Last data filed at 12/10/2020 0403 Gross per 24 hour Intake 1622.46 ml Output 300 ml Net 1322.46 ml Physical Exam: Neuro: A&O x 3 Cardiovascular: RRR no rub or murmur Respiratory: diminished bases GI: soft, NT, hypoactive BS Extremities: No Edema Incisions: right groin cath/IABP site without hematoma c/d/i LABS: Recent Labs 12/07/20151812/08/20 0336 12/09/20 0441 12/10/20 0406 NA 142 143 138 139 K 4.5 3.9 3.7 3.8 CL 109 103 101 101 CO2 23 27 28 26 GAP 10 13* 9 12 BUN 15 18 20 16 CR 0.71 0.75 0.70 0.72 GLU 128* 153* 147* 151* CA 9.0 9.4 9.3 9.3 ALBUMIN 3.9 3.9 3.7 4.0 HGBA1C 5.9 -- -- -- TSH 1.38 -- -- -- Recent Labs 12/07/20 1519 12/07/20 2040 12/07/203 12/08/20 0001 12/08/206 12/09/20 0441 12/10/20 0406 WBC 9.3 -- -- -- 10.1 8.7 9.1 HGB 15.2* -- -- -- 14.8 12.9 13.1 HCT 43.8 -- -- -- 41.8 37.6 37.6 PLTCT 209 -- -- -- 201 184 177 INR 1.1 -- -- -- 1.1 1.1 1.1 PTT 32.3 -- 59.3* -- 47.5* 53.6* 46.9* AST 126* -- -- -- 78* 35 26 ALT 18 -- -- -- 17 13 11 ALKPHOS 60 -- -- -- 61 59 62 TNI >22.90* 18.63* -- 12.99* 11.67* 4.59* -- Estimated Creatinine Clearance: 58.5 mL/min (based on SCr of 0.72 mg/dL). Vitals: 12/08/20 0600 12/09/20 0636 12/10/20 0400 Weight: 60.4 kg (133 lb 3.2 oz) 57.2 kg (126 lb 3.2 oz) 60.2 kg (132 lb 12.8 oz) No results for input(s): PHART, PO2ART in the last 72 hours. Invalid input(s): PC02A Radiology and Other Diagnostic Procedures Review: Reviewed T * Lucina Cueto RN - 12/10/2020 6:00 AM CDT Assumed care at 1900 A&O x4 SR c BBB on Tele Tolerating RA Adequate UOP Last BM No complaints of pain Surgical incision C/D/I Heparin gtt infusing per orders No other needs voiced at this time Call light within reach Assessments completed and documented per flowsheet * Litzy Michaud, PREETHI - 12/09/2020 3:54 PM CDT Assumed care of pt at 0700, assessment per doc flow No acute changes during this time VSS, afebrile, A/Ox4, SPO2 WNL on RA. 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 CV NSR with left bundle, rates 80s. SBP 120s.. Cont ASA, Crestor, and Metop rolol BID. TTE pending. EF 30% per report. Troponin down-trending. Resp 95% on 2L. Wean O2. Cont IS, aggressive pulm toilet. PFTs completed. Renal Baseline sCr. 0.7. sCr today 0.70. Lasix 20mg daily. GI - ADAT, continue post op bowel regimen. PPI for ppx. ID Afebrile. WBC: 10.1 Heme H/H stable. Platelets 184. Heparin drip for NSTEMI FEN replace Mg and K to minimize the risk of cardiac arrhythmias. Insulin sl iding scale with hx of diabetes, Hg A1c 5.9. TUGBOAT OPERATOR Allopurinol. Activity Ambulating. Disposition: Awaiting CABG- need to determine timing of surgery after work-up co mplete. Needs TTE, carotids, and vein mapping (ordered). Troponin trending down. Denies chest pain. Continue heparin drip. Prophylaxis Review: Lines: No Antibiotic Usage: No VTE: Heparin drip Urinary Catheter: No Tina Patiño PA-C Pager [phone] 12/09/2020 Subjective: HPI: Carli Koroma is a 75 y.o. female with hx of CAD, HTN, NSTEMI with HFrEF. Transf erred from OSH for CABG eval. REVIEW OF SYSTEMS: Review of Systems Constitutional: Negative for chills and fever. HENT: Poor dentition Respiratory: Negative for cough, sputum production and shortness of breath. Cardiovascular: Negative for chest pain and leg swelling. Gastrointestinal: Negative for abdominal pain, constipation and diarrhea. Skin: Negative for itching and rash. Neurological: Negative for dizziness, sensory change, focal weakness and weaknes s. Psychiatric/Behavioral: Negative for hallucinations and substance abuse. The pat ient is not nervous/anxious. Objective: Medications: Scheduled Meds:allopurinoL (ZYLOPRIM) tablet 100 mg, 100 mg, Oral, QDAY aspirin EC tablet 81 mg, 81 mg, Oral, QDAY furosemide (LASIX) tablet 20 mg, 20 mg, Oral, QDAY gabapentin (NEURONTIN) capsule 300 mg, 300 mg, Oral, QDAY(12) gabapentin (NEURONTIN) capsule 600 mg, 600 mg, Oral, QHS gabapentin (NEURONTIN) capsule 600 mg, 600 mg, Oral, QDAY(17) heparin (porcine) BOLUS for continuous inf (vial) 1,260-2,510 Units, 20-40 Units /kg, Intravenous, As Prescribed insulin aspart U-100 (NOVOLOG FLEXPEN) injection PEN 0-12 Units, 0-12 Units, Sub cutaneous, ACHS (22) metoprolol tartrate (LOPRESSOR) tablet 12.5 mg, 12.5 mg, Oral, BID pantoprazole DR (PROTONIX) tablet 40 mg, 40 mg, Oral, QDAY(21) rosuvastatin (CRESTOR) tablet 20 mg, 20 mg, Oral, QDAY Continuous Infusions: heparin (porcine) 20,000 units/D5W 500 mL infusion (std conc)(premade) 755 U nits/hr (12/09/20 07) PRN and Respiratory Meds:calcium gluconate IV PRN (Nutrition Services Aide from Rx) AND Ion ized Calcium PRN AND Notify Physician Ongoing, magnesium sulfate PRN AND Magnesium PRN AND Notify Physician Ongoing, ondansetron (ZOFRAN) IV Q6H PRN, sodium phosphate IVPB PRN (Nutrition Services Aide from Rx) OR sodium phosphate IVPB PRN (Nutrition Services Aide from Rx) OR sodium phosphate IVPB PRN (Nutrition Services Aide from Rx) Vital Signs: Last Filed Vital Signs: 24 Hour Ra nge BP: 126/62 (12/09 801) Temp: 36.6 C (97.8 F) (12/09 801) Pulse: 86 (12/09 801) Respirations: 16 PER MINUTE (12/09 801) SpO2: 95 % (12/09 801) SpO2 Pulse: 72 (12/08 1400) BP: (105-135)/(62-78) Temp: [36.4 C (97.6 F)-37.4 C (99.3 F)] Pulse: [73-96] Respirations: [11 PER MINUTE-16 PER MINUTE] SpO2: [92 %-97 %] Intensity Pain Scale (Self Report): 0 (12/09/20 0523) Vitals: 12/07/20 1514 12/08/20 0600 12/09/20 0636 Weight: 62.8 kg (138 lb 6.4 oz) 60.4 kg (133 lb 3.2 oz) 57.2 kg (126 lb 3.2 oz) Intake/Output Summary: (Last 24 hours) Intake/Output Summary (Last 24 hours) at 12/09/2020 09 Last data filed at 12/09/2020 0523 Gross per 24 hour Intake 511.2 ml Output 276 ml Net 235.2 ml Physical Exam: Neuro: A&O x 3 Cardiovascular: RRR no rub or murmur Respiratory: diminished bases GI: soft, NT, hypoactive BS Extremities: No Edema Incisions: right groin cath/IABP site without hematoma c/d/i LABS: Recent Labs 12/07/20 1519 12/08/20 0336 12/09/20 0441 NA 142 143 138 K 4.5 3.9 3.7 CL 109 103 101 CO2 23 27 28 GAP 10 13* 9 BUN 15 18 20 CR 0.71 0.75 0.70 GLU 128* 153* 147* CA 9.0 9.4 9.3 ALBUMIN 3.9 3.9 3.7 HGBA1C 5.9 -- -- TSH 1.38 -- -- Recent Labs 12/07/20 1519 12/07/20 2040 12/07/20 2223 12/08/20 0001 12/08/20 0336 12/09/20 0441 WBC 9.3 -- -- -- 10.1 8.7 HGB 15.2* -- -- -- 14.8 12.9 HCT 43.8 -- -- -- 41.8 37.6 PLTCT 209 -- -- -- 201 184 INR 1.1 -- -- -- 1.1 1.1 PTT 32.3 -- 59.3* -- 47.5* 53.6* AST 126* -- -- -- 78* 35 ALT 18 -- -- -- 17 13 ALKPHOS 60 -- -- -- 61 59 TNI >22.90* 18.63* -- 12.99* 11.67* 4.59* Estimated Creatinine Clearance: 63.7 mL/min (based on SCr of 0.7 mg/dL). Vitals: 12/07/20 1514 12/08/20 0600 12/09/20 0636 Weight: 62.8 kg (138 lb 6.4 oz) 60.4 kg (133 lb 3.2 oz) 57.2 kg (126 lb 3.2 oz) No results for input(s): PHART, PO2ART in the last 72 hours. Invalid input(s): PC02A Radiology and Other Diagnostic Procedures Review: Reviewed * Saroj Ramos RN - 12/09/2020 7:24 AM CDT A/Ox4. SR with BBB on tele. on RA. VSS per Pt. trend. On Cardiac Diet. has v oided adequetly during shift. incisions, drains, and tubes have remained C,D,I. No pain reported during shift. High fall risks bundle is in place.Pt ambulated o nce with family in hallways. Pt is in bed, call light within reach, will continu e to monitor. * Verito Martin - 12/08/2020 8:39 PM CDT RT Adult Assessment Note NAME:Carli Koroma :1945 AGE: 75 y.o. ADMISSION DATE: 12/07/2020 DAYS ADMITTED: LOS: 1 day RT Treatment Plan: Protocol Plan: Procedures Oxygen/Humidity: Discontinued SpO2: Discontinued Additional Comments: Impressions of the patient: Patient resting quietly, comfortably. Intervention(s)/outcome(s): Re-evaluation per RT protocol. Patient education that was completed: none Recommendations to the care team: none Vital Signs: Pulse: 73 RR: 16 PER MINUTE SpO2: 96 % O2 Device: Liter Flow: O2%: Breath Sounds: Clear (Implies normal) Respiratory Effort: Non-Labored * Litzy Michaud RN - 12/08/2020 5:29 PM CDT Assumed care of pt at 1540, assessment per doc flow No acute changes during this time VSS, afebrile, A/Ox4, SPO2 WNL on RA. NSR c BBB on tele 70-90s Adequate UOP post [place] removal, last BM 12/07 +flatus Tolerating cardiac diet, no nausea Ambulating stand by assist in galindo, c/o some SOA and fatigue with activity R groin site CDI, soft bruising noted Heparin gtt therapeutic, managed per Mar Denies pain Plan pending work up No further complaints, WCTM * Litzy Jovel - 12/08/2020 10:18 AM CDT OCCUPATIONAL THERAPY NOTE Name: Carli Koroma : 1945 Age: [age] y.o. Admission Date: 12/07/2020 LOS: 1 day Based on discussion with PT/, patient's current level of function suggests that patient will progress with one discipline. OT will sign off at this time. Please re-consult if change in functional status occurs. Thank you. 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 CV NSR with left bundle. Cont ASA and no statin d/t intolerance. Metoprolol BID. TTE pending. 30% ef per report. Troponin down-trending. Carotid studies or dered. Resp Wean O2. Cont IS, aggressive pulm toilet. PFTs pending. Renal Baseline sCr. 0.7. GI - ADAT, continue post op bowel regimen. ID Afebrile. WBC: 10.1 Heme Hgb 14.8, Heparin drip for NSTEMI FEN replace Mg and K to minimize the risk of cardiac arrhythmias. Insulin sl iding scale with hx of diabetes. Activity Ambulating. Disposition: Transfer to floor. Prophylaxis Review: Lines: No Antibiotic Usage: No VTE: Heparin drip Urinary Catheter: No Patrick Hernandez APRN-YAYO [facility] Intensive Care Pager [phone] 12/08/2020 Subjective: HPI: Carli Koroma is a 75 y.o. female with hx of CAD, HTN, NSTEMI with HFrEF. Transf erred from OSH for CABG eval. REVIEW OF SYSTEMS: Review of Systems Constitutional: Negative for chills and fever. HENT: Poor dentition Respiratory: Negative for cough, sputum production and shortness of breath. Cardiovascular: Negative for chest pain and leg swelling. Gastrointestinal: Negative for abdominal pain, constipation and diarrhea. Skin: Negative for itching and rash. Neurological: Negative for dizziness, sensory change, focal weakness and weaknes s. Psychiatric/Behavioral: Negative for hallucinations and substance abuse. The pat ient is not nervous/anxious. Objective: Medications: Scheduled Meds:aspirin EC tablet 81 mg, 81 mg, Oral, QDAY furosemide (LASIX) tablet 20 mg, 20 mg, Oral, QDAY gabapentin (NEURONTIN) capsule 600 mg, 600 mg, Oral, QHS heparin (porcine) BOLUS for continuous inf (vial) 1,260-2,510 Units, 20-40 Units /kg, Intravenous, As Prescribed pantoprazole DR (PROTONIX) tablet 40 mg, 40 mg, Oral, QDAY(21) Continuous Infusions: heparin (porcine) 20,000 units/D5W 500 mL infusion (std conc)(premade) 755 U nits/hr (12/08/20 0731) PRN and Respiratory Meds:calcium gluconate IV PRN (Nutrition Services Aide from Rx) AND Ion ized Calcium PRN AND Notify Physician Ongoing, magnesium sulfate PRN AND Magnesium PRN AND Notify Physician Ongoing, ondansetron (ZOFRAN) IV Q6H PRN, sodium phosphate IVPB PRN (Nutrition Services Aide from Rx) OR sodium phosphate IVPB PRN (Nutrition Services Aide from Rx) OR sodium phosphate IVPB PRN (Nutrition Services Aide from Rx) Vital Signs: Last Filed Vital Signs: 24 Hour Ra nge BP: 140/77 (12/08 899) Temp: 37 C (98.6 F) (12/09 799) Pulse: 71 (12/08 899) Respirations: 13 PER MINUTE (12/08 899) SpO2: 98 % (12/08 899) SpO2 Pulse: 71 (12/08 899) Height: 157.5 cm (62") (12/07 1513) BP: (99-161)/(62-94) Temp: [36.8 C (98.2 F)-37 C (98.6 F)] Pulse: [66-86] Respirations: [10 PER MINUTE-22 PER MINUTE] SpO2: [95 %-98 %] Intensity Pain Scale (Self Report): 4 (12/08/20 0200) Vitals: 12/07/20 1514 12/08/20 0600 Weight: 62.8 kg (138 lb 6.4 oz) 60.4 kg (133 lb 3.2 oz) Intake/Output Summary: (Last 24 hours) Intake/Output Summary (Last 24 hours) at 12/08/2020 1011 Last data filed at 12/08/2020 0900 Gross per 24 hour Intake 796.58 ml Output 1587 ml Net -790.42 ml Physical Exam: Neuro: A&O x 3 Cardiovascular: RRR no rub or murmur Respiratory: diminished bases GI: soft, NT, hypoactive BS Extremities: No Edema Incisions: right groin cath/IABP site without hematoma c/d/i LABS: Recent Labs 12/07/20 1519 12/08/20 0336 NA 142 143 K 4.5 3.9 CL 109 103 CO2 23 27 GAP 10 13* BUN 15 18 CR 0.71 0.75 GLU 128* 153* CA 9.0 9.4 ALBUMIN 3.9 3.9 HGBA1C 5.9 -- TSH 1.38 -- Recent Labs 12/07/20 1519 12/07/20 2040 12/07/20 2223 12/08/20 0001 12/08/20 0336 WBC 9.3 -- -- -- 10.1 HGB 15.2* -- -- -- 14.8 HCT 43.8 -- -- -- 41.8 PLTCT 209 -- -- -- 201 INR 1.1 -- -- -- 1.1 PTT 32.3 -- 59.3* -- 47.5* AST 126* -- -- -- 78* ALT 18 -- -- -- 17 ALKPHOS 60 -- -- -- 61 TNI >22.90* 18.63* -- 12.99* 11.67* Estimated Creatinine Clearance: 56.3 mL/min (based on SCr of 0.75 mg/dL). Vitals: 12/07/20 1514 12/08/20 0600 Weight: 62.8 kg (138 lb 6.4 oz) 60.4 kg (133 lb 3.2 oz) No results for input(s): PHART, PO2ART in the last 72 hours. Invalid input(s): PC02A Radiology and Other Diagnostic Procedures Review: Reviewed * Brandie Gallegos MD - 12/08/2020 9:54 AM CDT Carli Koroma is 75yo female with PMHx of dyslipidemia, HTN, and Diabetes type 2 , who presented to OSH for shortness of air. She underwent cardiac workup there and was noted to have significant troponin elevation(0.2 on admit to 42 this am) and hypertension on admit. She underwent cardiac catheterization for NSTEMI and was found to have severe multivessel CAD. An IABP was placed; unfortunately, th is was reportedly placed via SFA. She was later noted to have significant leak f rom her IABP and she was transferred to without IABP. Negative for COVID on . Subjective: no acute events overnight. Troponins trending down. No chest pain. No chest pain SR, SBP: 110-120, MAPs 70-90 sats 97-98% on 2L UOP: 1.5L, I/O: -813cc Trops: 11.67<-. 12.99 Plan: Trend troponins Continue heparin gtt PRN diuresis Echo today Panorex, PFTs, caortids BB Tele status Brandie Gallegos MD CTS Fellow [phone] * Sumi Bae, PT - 12/08/2020 9:05 AM CDT PHYSICAL THERAPY ASSESSMENT Name: Carli Koroma : 1945 Age: [age] y.o. Admission Date: 12/07/2020 LOS: 1 day Mobility Progressive Mobility Level: Walk in hallway Distance Walked (feet): 220 ft Level of Assistance: Assist X1 Assistive Device: Walker Time Tolerated: 0-10 minutes Subjective Significant hospital events: 75yo female who presented to OSH for shortness of air. She underwent cardiac catheterization for NSTEMI and was found to have kiana re multivessel CAD. An IABP was placed, significant leak from her IABP and she w as transferred to without IABP Mental / Cognitive Status: Alert;Oriented;Cooperative Persons Present: Daughter Pain: Patient has no complaint of pain Ambulation Assist: Independent Mobility in Community without Device Patient Owned Equipment: Single Point Cane Home Situation: Lives with Family Type of Home: House Entry Stairs: 3-5 Stairs In-Home Stairs: No Stairs Strength Overall Strength: WFL Bed Mobility/Transfer Bed Mobility: Supine to Sit: Standby Assist;Bed Flat;Use of Rail;Requires Extra Time Transfer Type: Sit to Stand Transfer: Assistance Level: To/From;Bed;Minimal Assist Transfer: Assistive Device: Roller Walker Transfers: Type Of Assistance: Verbal Cues;For Safety Considerations End Of Activity Status: Up in Chair;Nursing Notified Gait Gait Distance: 220 feet Gait: Assistance Level: Minimal Assist Gait: Assistive Device: (ICU walker) Gait: Descriptors: Pace: Slow;Pathway deviations;Swing-Through Gait;No balance l oss Education Persons Educated: Patient Patient Barriers To Learning: None Noted Teaching Methods: Verbal Instruction Patient Response: Verbalized Understanding Topics: Plan/Goals of PT Interventions;Mobility Progression;Continue Ambulation on Own Assessment/Progress Assessment/Progress: Expect Good Progress;Awaiting Surgery AM-PAC 6 Clicks Basic Mobility Inpatient Turning from your back to your side while in a flat bed without using bed rails: None Moving from lying on your back to sitting on the side of a flatbed without using bedrails : A Little Moving to and from a bed to a chair (including a wheelchair): A Little Standing up from a chair using your arms (e.g. wheelchair, or bedside chair): A Little To walk in hospital room: A Little Climbing 3-5 steps with a railing: A Little Raw Score: 19 Standardized (T-scale) Score: 42.48 Basic Mobility CMS 0-100%: 36.99 CMS G Code Modifier for Basic Mobility: CJ Goals Goal Formulation: With Patient Time For Goal Achievement: 7 days Patient Will Go Supine To/From Sit: Independently Patient Will Transfer Sit to Stand: Independently Patient Will Ambulate: Greater than 200 Feet, w/ Walker, Independently Plan Treatment Interventions: Mobility Training;Balance Activities;Endurance Training Plan Frequency: 3-5 Days per Week PT Plan for Next Visit: Progress independence with ambulation without theuse of walker, ok to sign off once goals are met and CTS does not plan to do CABG this admission PT Discharge Recommendations Recommendation: Home/prior living situation Therapist Sumi Bae, PT, DPT Date 12/08/2020 * Christina Plummer RN - 12/08/2020 5:21 AM CDT Shift update: Denies chest pain. C/o diabetic neuropathy pain in feet and legs at 0100, reque sted home med gabapentin that she takes for it. Ta Seals NP notified. Gabapen tin given as ordered with relief. SR with BBB rate 70s. BP 140-150s. On O2 at 2L by NC. Taking po. [place] with u/o < 30 ml/hr last 2 hours. Ta Seals notified at 0510. 2 peripheral IVs for access. Drips: Heparin at 755 units/hr (2 PTTs in therapeutic range with AM PTT 47.5) * Christina Plummer RN - 12/07/2020 11:49 PM CDT Assumed care of pt at 193. Alert and oriented x4. Denies pain. Bedrest until 2129 (after IABP removal), u p to commode with SB assist after. SR with BBB, rate 70s. SBP 130-140s. Afebrile. Right groin site soft, dressin g dry and intact. On O2 at 2L by NC with SpO2 97%. Taking po, no N/V. Small BM. [place] with large amount clear yellow urine. 2 peripheral IVs for access. Panorex xrays and PFTs completed. 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 Carli Koroma is 75yo female with PMHx of dyslipidemia, HTN, and Diabetes ty pe 2, who presented to OSH for shortness of air. She underwent cardiac workup th and was noted to have significant troponin elevation. She underwent cardiac catheterization for NSTEMI and was found to have severe multivessel CAD. An IABP was placed; unfortunately, this was reportedly placed via SFA. She was later no aleksandar to have significant leak from her IABP and she was transferred to without IABP. Neuro: PRN pain meds as needed, chest pain free on arrival. Cardiac: Troponin ~42 at OSH. Unreadable high here on lab result. Reduced EF on POCUS ~20%. Will plan for formal TTE. Nitro for CP as needed. Start heparin gtt. Pulmonary: FAYE. IS/Pulm Toilet. FEN: NPO ID: No infectious concerns Renal: Admission serum Cr ~0.7. Gentle diuresis. Heme: Stable. Endo: Modified [place] Insulin Protocol Prophylaxis: HOB>40, PPI, DVT prophylaxis per primary team Disposition/Family: Needs ICU for multivessel CAD, acute systolic dysfunction, r efractory angina, concern for cardiogenic shock. Prophylaxis Review: Lines: Yes; Arterial Line; Indication: Frequent blood draws and Continuous BP monitoring; Location: Radial Urinary Catheter: Yes; Retain [place] due to: Need for accurate Intake and Outpu t Antibiotic Usage: No VTE: Per Primary I have seen, examined and reviewed data concerning this patient. I discussed th e findings and plan of care with the ICU team. I spent 42 minutes in critical ca re time, excluding procedures today. 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 History of Present Illness: Carli Koroma is a 75 y.o. female presents s/p CABG (12/16) and IABP removal with sudden onset RLE ischemia. - US RLE showed acute occlusive thrombus extending from right popliteal to R TUGBOAT OPERATOR and peroneal arteries. No PT/DP signals present. - Patient to OR for RLE embolectomy of RLE. The patient's daughter consented for the procedure and the risks and benefits of the procedure and alternatives were discussed with the patient's daughter (patient currently intubated and unable to provide consent). History of Present Illness No past medical history on file. No past surgical history on file. No family history on file. Social History Socioeconomic History Marital status: Spouse name: Not on file Number of children: Not on file Years of education: Not on file Highest education level: Not on file Occupational History Not on file Tobacco Use Smoking status: Never Smoker Smokeless tobacco: Never Used Substance and Sexual Activity Alcohol use: Not on file Drug use: Not on file Sexual activity: Not on file Other Topics Concern Not on file Social History Narrative Not on file Social Determinants of Health Financial Resource Strain: Difficulty of Paying Living Expenses: Food Insecurity: Worried About Running Out of Food in the Last Year: Ran Out of Food in the Last Year: Transportation Needs: Lack of Transportation (Medical): Lack of Transportation (Non-Medical): Physical Activity: Days of Exercise per Week: Minutes of Exercise per Session: Stress: Feeling of Stress : Social Connections: Frequency of Communication with Friends and Family: Frequency of Social Gatherings with Friends and Family: Attends [employer] Services: Active Member of Clubs or Organizations: Attends Club or Organization Meetings: Marital Status: Intimate Partner Violence: Fear of Current or Ex-Partner: Emotionally Abused: Physically Abused: Sexually Abused: Vaping/E-liquid Use Vaping Use Never User Immunizations (includes history and patient reported): There is no immunization history on file for this patient. Allergies: Crestor [rosuvastatin] Medications: Medications Prior to Admission Medication Sig allopurinoL (ZYLOPRIM) 100 mg tablet Take 100 mg by mouth daily. Take with f ood. Indications: treatment to prevent acute gout attack antiox #8/om3/dha/epa/lut/zeax (PRESERVISION AREDS 2 (OMEGA-3) PO) Take 1 ta blet by mouth daily. atenoloL (TENORMIN) 100 mg tablet Take 100 mg by mouth daily. Indications: h igh blood pressure gabapentin (NEURONTIN) 300 mg capsule Take 300 mg by mouth five times daily. SITagliptin-metformin (JANUMET XR) 100-1,000 mg tablet Take 1 tablet by mout h daily. Indications: type 2 diabetes mellitus Review of Systems Unable to perform ROS: intubated Physical Exam Vitals reviewed. HENT: Head: Normocephalic. Cardiovascular: Rate and Rhythm: Tachycardia present. Pulses: Popliteal pulses are 2+ on the right side and 2+ on the left side. Dorsalis pedis pulses are 0 on the right side and 2+ on the left side. Posterior tibial pulses are 0 on the right side and 2+ on the left side. Comments: No DP/PT signal on the RLE. Pulmonary: Effort: No respiratory distress. Abdominal: General: Abdomen is flat. There is no distension. Musculoskeletal: General: No swelling. Right lower leg: No edema. Left lower leg: No edema. Feet: Right foot: Skin integrity: No ulcer. Left foot: Skin integrity: No ulcer. Skin: Coloration: Skin is not pale. Findings: Bruising present. No erythema. Vital Signs: Last Filed In 24 Hours Vital Signs: 24 Hour Range Temp: 38 C (100.4 F) (12/17 1200) Pulse: 99 (12/17 1200) Respirations: 20 PER MINUTE (12/17 1200) SpO2: 100 % (12/17 1200) SpO2 Pulse: 98 (12/17 1200) ABP: (95-154)/(18-65) Temp: [35.7 C (96.3 F)-38.2 C (100.8 F)] Pulse: [94-124] Respirations: [16 PER MINUTE-21 PER MINUTE] SpO2: [97 %-100 %] CPOT Score Total: 3 (12/17/20 0830) Lab/Radiology/Other Diagnostic Tests: Pertinent labs reviewed Glucose: (!) 110 (12/17/20 0214) POC Glucose (Download): (!) 140 (12/17/20 1252) Pertinent radiology reviewed. Ayleen White MD Service Pager #[phone] * Patrick Hernandez APRN-STRAIGHTENER HAND - 12/07/2020 4:06 PM CDT CTS H&P Date of Service: 12/07/2020 CC: Chest pain HPI: Carli Koroma is 75yo female with PMHx of dyslipidemia, HTN, and Diabetes t ype 2, who presented to OSH for shortness of air. She underwent cardiac workup t here and was noted to have significant troponin elevation(0.2 on admit to 42 thi s am) and hypertension on admit. She underwent cardiac catheterization for NSTEM I and was found to have severe multivessel CAD. An IABP was placed; unfortunatel y, this was reportedly placed via SFA. She was later noted to have significant l eak from her IABP and she was transferred to without IABP. Negative for COVID on 12/06/20. CATH FINDINGS: Coronary Stenosis LAD-->severe ostial disease, moderate disease distally CFX-->proximal stenosis with ulcerated plaque and some haziness, moderate disease distally. RCA-->is totally occluded with collaterals from the left LVEF: 30% by LV gram PMH: Coronary Artery Disease Hypertension Hyperlipidemia Diabetes Mellitus Family History of CAD(mother and father) PSH: Appendectomy Tubal ligation Medicatons: pantoprazole DR (PROTONIX) tablet 40 mg, 40 mg, Oral, QDAY(21) Home Medications: Atenolol for HTN Statin intolerance Melatonin Allopurinol Allergies: No Known Allergies Family History: Father:CAD Mother: CAD Siblings: ALS Social History: Social History Socioeconomic History Marital status: Spouse name: Not on file Number of children: Not on file Years of education: Not on file Highest education level: Not on file Occupational History Not on file Tobacco Use Smoking status: Not on file Substance and Sexual Activity Alcohol use: Not on file Drug use: Not on file Sexual activity: Not on file Other Topics Concern Not on file Social History Narrative Not on file Patient is with three daughters. She is retired. ROS: Review of Systems Constitutional: Negative for chills and fever. HENT: Poor dentition noted with multiple decayed teeth and cavities Eyes: Negative for blurred vision and photophobia. Respiratory: Negative for cough, hemoptysis and sputum production. Cardiovascular: Negative for chest pain, claudication and leg swelling. Gastrointestinal: Negative for heartburn, nausea and vomiting. Skin: Negative for itching and rash. Neurological: Negative for dizziness, sensory change, speech change and headache s. Psychiatric/Behavioral: Negative for hallucinations. The patient is not nervous/ anxious. Physical Exam: GENERAL: A&O x 3, NAD. HEENT Head: Normocephalic Teeth: poor dentition with decay and cavities NECK Active ROM: full Trachea: midline HEART Neck Veins- No JVD Carotid Arteries: No bruits Cardiac: RRR with normal S1, S2. No murmurs LUNGS Auscultation- breath sounds CTA bilaterally ABDOMEN Soft, NT + BS EXTREMITIES Edema- No edema, R. Groin IABP site without hematoma. Posterior Tibial- 2+ qamar Dorsalis Pedis- 2+ qamar SKIN: Normal, without lesions NEUROLOGIC A&O x 3 Grossly intact Results for orders placed or performed during the hospital encounter of 12/07/20 (from the past 24 hour(s)) LACTIC ACID (BG - RAPID LACTATE) Collection Time: 12/07/20 3:19 PM # # Low-High Lactic Acid,BG 1.9 0.5 - 2.0 MMOL/L CBC AND DIFF Collection Time: 12/07/20 3:19 PM # # Low-High White Blood Cells 9.3 4.5 - 11.0 K/UL RBC 4.85 4.0 - 5.0 M/UL Hemoglobin 15.2 (H) 12.0 - 15.0 GM/DL Hematocrit 43.8 36 - 45 % MCV 90.3 80 - 100 FL MCH 31.3 26 - 34 PG MCHC 34.7 32.0 - 36.0 G/DL RDW 14.4 11 - 15 % Platelet Count 209 150 - 400 K/UL MPV 8.3 7 - 11 FL Neutrophils 63 41 - 77 % Lymphocytes 26 24 - 44 % Monocytes 10 4 - 12 % Eosinophils 1 0 - 5 % Basophils 0 0 - 2 % Absolute Neutrophil Count 5.92 1.8 - 7.0 K/UL Absolute Lymph Count 2.45 1.0 - 4.8 K/UL Absolute Monocyte Count 0.88 (H) 0 - 0.80 K/UL Absolute Eosinophil Count 0.05 0 - 0.45 K/UL Absolute Basophil Count 0.02 0 - 0.20 K/UL URINALYSIS DIPSTICK Collection Time: 12/07/20 3:19 PM # # Low-High Color,UA YELLOW Turbidity,UA CLEAR CLEAR-CLEAR Specific [place]-Urine 1.035 1.003 - 1.035 pH,UA 6.0 5.0 - 8.0 Protein,UA NEG NEG-NEG Glucose,UA NEG NEG-NEG Ketones,UA NEG NEG-NEG Bilirubin,UA NEG NEG-NEG Blood,UA 3+ (A) NEG-NEG Urobilinogen,UA NORMAL NORM-NORMAL Nitrite,UA NEG NEG-NEG Leukocytes,UA TRACE (A) NEG-NEG Urine Ascorbic Acid, UA NEG NEG-NEG URINALYSIS, MICROSCOPIC Collection Time: 12/07/20 3:19 PM # # Low-High WBCs,UA 0-2 0 - 2 /HPF RBCs,UA PACKED 0 - 3 /HPF MucousUA TRACE Squamous Epithelial Cells 0-2 0 - 5 POC GLUCOSE Collection Time: 12/07/20 3:25 PM # # Low-High Glucose, POC 129 (H) 70 - 100 MG/DL All pertinent diagnostic studies have been reviewed. Impression: Active Hospital Problems Diagnosis NSTEMI, initial episode of care (HCC) Coronary artery disease of [place] artery of [place] heart with stable angina pectoris (HCC) Plan: -Heparin drip -Nitro drip if chest pain -Prn diuresis -Panorex -Obtain formal Echo Discussed with Dr Garsia, Dr Villaseñor, and Dr Gallegos. T Associated attestation - Fortunato Garsia III, MD - 12/08/2020 11:00 AM CDT I met with the patient and her family and reviewed the findings of the cardiac c atheterization. We discussed multiple management options including medical, PCI and surgery. In my opinion this anatomy is most completely treated with surgic al revascularization. Our bedside echo would suggest she has significant cardio myopathy. We are going to obtain a formal study today to try to better evaluate her cardiac function and valvular function. Clinically she has been asymptomatic, specifically denying chest pain or shortne ss of breath. She has been hemodynamically stable. Laboratory exam is good as well. Ideally we would like to give a few days for her to recover from her [facility] and to c omplete the evaluation process. We would also like to give a chance for the con trast exposure to the past. Ultimately I think this will require surgical revas cularization. However reviewed the procedure and the risks and benefits at zainab th. Risks include bleeding, infection, stroke, dialysis and . She has exp ressed understanding. She also expressed she really wants to consider PCI and I will discuss with cardiology. I believe she is suitable to be transferred out of the unit to telemetry floor. Mike Garsia M.D. documented in this encounter Consult Notes * Alfa Porter MD - 12/20/2020 1:08 PM CDT Associated Order(s): CONSULT REHABILITATION MEDICINE PHYSICIAN Rehabilitation Medicine Attending Physician Attestation: I personally performed truner portions of the history and exam. I discussed the uyen e with the resident and agree with the resident's documentation of history, phys ical assessment and treatment plan unless otherwise noted. Thank you for allowing us to participate in the care of this patient. Bhavin Porter MD Rehabilitation Medicine Physical Medicine & Rehabilitation Consult Service Name: Carli Koroma : 1945 Age: 75 y.o. Admission Date: 12/07/2020 LOS: 13 Date of Service: 12/20/20 Financial Class: Payor: Payor: MEDICARE / Plan: MEDICARE PART A AND B / Product Type: Medicare / Referring Physician: Dario Webster MD Reason for Consult: evaluate for Post-Acute Rehab/Placement Precautions: Fall, Sternal Precautions Weight Bearing Precautions: WBAT Active Problems Patient Active Problem List Diagnosis Date Noted Acute blood loss anemia 12/17/2020 Type 2 diabetes mellitus (HCC) 12/16/2020 S/P CABG x 2 12/16/2020 Essential hypertension 12/11/2020 Hyperlipidemia 12/11/2020 NYHA class 2 acute on chronic systolic heart failure (HCC) 12/11/2020 Ischemic cardiomyopathy 12/11/2020 Coronary artery disease of [place] artery of [place] heart with stable angina pectoris (HCC) 12/07/2020 NSTEMI, initial episode of care ([facility]) 12/07/2020 Gait abnormality 12/20/20 Impaired mobility/ADLs 12/20/20 Impaired transfers 12/20/20 Assessment & Plan Carli Koroma is a 75 y.o. female admitted to [facility] on 12/07/2020 with the following issues: Cardiac debility Post-acute care rehabilitation needs: Potentially acute IPR, although anticipate rehab needs can be met at subacute level Patient has clear ongoing skilled PT/OT goals sufficient for ongoing rehab at [facility]. Given that limitations appear primarily deconditioning and endurance re lated, anticipate that rehab goals can likely be met without daily physician ove rsight and chair finisher-directed rehab plan. Additionally, concerned at present r egarding ability to tolerate 3 hours of intensive rehab at discharge given persi stent dizziness in most recent therapy sessions. Will continue to follow patient 's progress peripherally and please do not hesitate to contact our service for u pdated recommendations. Prior to the inpatient rehabilitation admission complete the following: *Endurance The patient will need to be clearly able to or reasonably expected to be able to endure 3 hours of constructive therapy per day. This will need to be determined prior to considering admission to acute inpatient rehabilitation. *IV Meds: The patient will need to be transitioned off all IV medications and jackson ve good BP control with oral agents prior to transfer to acute inpatient rehabil itation. Thank you for this consultation. Rehabilitation Medicine will continue to michelle maher Impairments: pain, poor activity tolerance and weakness Activity Limitations: grooming, bathing, dressing - upper, dressing - lower, to ileting, transfers, ambulation and stairs Participation Restrictions: unable to return home safely Family / Patient Dispositional Goals: return home with family assistance Overall Functional Goals Gait and mobility SB assist Transfers SB assist ADLs SB assist Cognition / Communication Cognition grossly intact and Speech intact Barriers/Facilitators: Barriers: Caregiver apprehension, Equipment availibilty, Medical complexity and Poor strength/endurance Facilitators: patient motivation and improving medical condition Rehabilitation Prognosis: Good Tolerance for three hours of therapy a day: Good The patient and plan was discussed with attending physician, Dr. Porter. Piedad Abdalla MD PM&R Resident Voalte Me History of Present Illness Chief complaint: weakness Hospital Course: Carli Koroma is a 75 y.o. female who has no past medical history on file. Admi tted to [facility] on 12/07/2020 after presenting initially at an outside hospital in [place], [place] on 12/06/2020 with chest pain, shortness of breath, nausea with diaphoresis. She was found to have elevated troponin with NSTEMI; went to cath l ab for IABP placement. Her IABP was placed to SFA and developed a leak; therefor e it was discontinued to prior to her transfer to [facility]. She was also found to h ave elevated BNP of927 with HFrEF (30%) on echocardiogram. She is now status post two vessel CABG (with COFFMAN to LAD and RSVG to OM ) by Dr Webster on 12/16/20. Acute hospital stay has been complicated by decreased endurance, pain, hypergly cemia, leukocytosis, anemia, and impaired ADLs and mobility. Pt is working with PT and OT to address functional and mobility deficits, and rehab medicine is now consulted for post-acute rehab/placement recommendations. Prior to admission, she lived with her family in a home with several stairs to [facility]. Patient states that she would have help from on discharge. Patient denies F/C/N/V/D/SOB/CP. No past medical history on file. Surgical History: Procedure Laterality Date CABG x2, USHA, EVH, IABP N/A 12/16/2020 Performed by Dario Webster MD at [address] RIGHT LOWER EXTREMITY THROMBECTOMY Right 12/17/2020 Performed by Musa Salinas MD at [address] Social History Socioeconomic History Marital status: Spouse name: Not on file Number of children: Not on file Years of education: Not on file Highest education level: Not on file Occupational History Not on file Tobacco Use Smoking status: Never Smoker Smokeless tobacco: Never Used Substance and Sexual Activity Alcohol use: Not on file Drug use: Not on file Sexual activity: Not on file Other Topics Concern Not on file Social History Narrative Not on file No family history on file. Family history: reviewed and noncontributory to current condition Scheduled Meds:allopurinoL (ZYLOPRIM) tablet 100 mg, 100 mg, Oral, QDAY aspirin chewable tablet 81 mg, 81 mg, Oral, QDAY ezetimibe (ZETIA) tablet 10 mg, 10 mg, Oral, QHS furosemide (LASIX) injection 20 mg, 20 mg, Intravenous, BID(9-17) gabapentin (NEURONTIN) capsule 300 mg, 300 mg, Oral, Q8H heparin (porcine) PF syringe 5,000 Units, 5,000 Units, Subcutaneous, Q8H insulin aspart (U-100) (NOVOLOG FLEXPEN U-100 INSULIN) injection PEN 0-12 Units, 0-12 Units, Subcutaneous, ACHS (22) lidocaine (LIDODERM) 5 % topical patch 1 patch, 1 patch, Topical, QDAY [START ON 12/21/2020] losartan (COZAAR) tablet 12.5 mg, 12.5 mg, Oral, QDAY melatonin tablet 3 mg, 3 mg, Oral, QHS metoprolol tartrate tablet 12.5 mg, 12.5 mg, Oral, BID polyethylene glycol 3350 (MIRALAX) packet 17 g, 1 packet, Oral, BID rosuvastatin (CRESTOR) tablet 10 mg, 10 mg, Oral, Q72H* senna/docusate (SENOKOT-S) tablet 2 tablet, 2 tablet, Oral, BID spironolactone (ALDACTONE) tablet 25 mg, 25 mg, Oral, QDAY Continuous Infusions: PRN and Respiratory Meds:[START ON 12/21/2020] acetaminophen Q6H PRN OR [STAR T ON 12/21/2020] acetaminophen Q6H PRN, alum/mag hydroxide/simeth Q4H PRN, bisaco dyL QDAY PRN, hydrALAZINE Q6H PRN, lidocaine PF PRN, magnesium sulfate PRN OR* * magnesium oxide PRN, meclizine TID PRN, milk of magnesia (CONC) QDAY PRN, nalO Xone PRN, ondansetron Q6H PRN OR ondansetron (ZOFRAN) IV Q6H PRN, potassium chloride SR PRN OR potassium chloride PRN OR potassium chloride in water PRN, traMADoL Q6H PRN Allergies Allergen Reactions Crestor [Rosuvastatin] MUSCLE PAIN Prior Level of Function Self-Care/ADLs: Independent Mobility: independent at community level without assistive device Home Environment: Home Situation: Lives with Family (12/19/2020 3:00 PM) Patient Owned Equipment: Single Point Cane (12/19/2020 3:00 PM) Type of Home: House (12/19/2020 3:00 PM) Entry Stairs: 3-5 Stairs (12/19/2020 3:00 PM) In-Home Stairs: No Stairs (12/19/2020 3:00 PM) No data recorded No data recorded Current Level Of Function: PT Gait Distance: 15 feet Gait: Assistance Level: Moderate Assist, Management of Lines, Safety Considerations Gait: Assistive Device: Roller Walker Bed Mobility/Transfers Bed Mobility: Supine to Sit: Minimal Assist, x2 People Bed Mobility: Sit to Supine: Moderate Assist Transfer Type: Sit to/from Stand Transfer: Assistance Level: To/From, Bed Side Chair, Moderate Assist Transfer: Assistive Device: Hand Hold Assist Transfers: Type Of Assistance: Verbal Cues, To Maintain Precautions, For Balance , For Strength Deficit, For Safety Considerations End Of Activity Status: In Bed, Nursing Notified, Instructed Patient to Request Assist with Mobility, Instructed Patient to Use Call Light Comments: Return to supine to allow chest tube removal at end of session. OT LIME SPREADER COGNITIVE EVALUATION SUMMARY PRAGMATICS: BEHAVIOR: AUDITORY COMPREHENSION: ORIENTATION: AUDITORY ATTENTION/WORKING MEMORY: AUDITORY MEMORY/SUSTAINED ATTENTION: NEW LEARNING: SEQUENCING/ORGANIZATION: PROBLEM SOLVING: REASONING: MATH/MONEY SKILLS: VISUAL PERCEPTUAL: SWALLOW EVALUATION SUMMARY Review of Systems A 14 point review of systems was negative except for: that noted in the HPI Physical Exam BP: 138/73 (12/20 1500) Temp: 36.7 C (98 F) (12/20 1500) Pulse: 73 (12/20 1500) Respirations: 16 PER MINUTE (12/20 1500) SpO2: 97 % (12/20 1500) Height: 157.5 cm (62") (12/20 1104) Body mass index is 24.69 kg/m. Gen: awake, alert, NAD, thin HEENT: NCAT, EOMI, MMM Neck: Supple and symmetric Heart: Extremities are well perfused. Incision/dressing C/D/I Lungs: respirations even and non-labored Abdomen: Soft, non-distended Psych: appropriate affect Ext: No c/c/e appreciated. R groin bruising MS: Root Right Left Elbow Flexion C5 5 5 Wrist Extension C6 5 5 Elbow Extension C7 5 5 Finger Flexion C8 5 5 Finger Abduction T1 5 5 Hip Flexion L2 5 5 Knee Extension L3 5 5 Dorsiflexion L4 5 5 EHL Extension L5 5 5 Plantarflexion S1 5 5 *easy fatigability Neuro: Cranial Nerves Cranial Nerves 2-12 are grossly intact DTR's no hyperreflexia Upper Extremity Sensation Intact to light touch bilaterally Lower Extremity Sensation Intact to light touch bilaterally Memory/Concentration grossly intact Intake/Output Summary (Last 24 hours) at 12/20/2020 1622 Last data filed at 12/20/2020 1200 Gross per 24 hour Intake 246.6 ml Output 700 ml Net -453.4 ml Hematology: Lab Results Component Value Date HGB 8.6 12/20/2020 HCT 25.5 12/20/2020 PLTCT 239 12/20/2020 WBC 11.8 12/20/2020 NEUT 55 12/16/2020 ANC 4.50 12/16/2020 ALC 2.40 12/16/2020 IMAN 11 12/16/2020 AMC 0.90 12/16/2020 ABC 0.00 12/16/2020 MCV 93.7 12/20/2020 MCHC 33.7 12/20/2020 MPV 8.0 12/20/2020 RDW 14.9 12/20/2020 , Coagulation: Lab Results Component Value Date PTT 28.5 12/16/2020 INR 1.2 12/16/2020 General Chemistry: Lab Results Component Value Date NA 141 12/20/2020 K 4.1 12/20/2020 CL 107 12/20/2020 GAP 10 12/20/2020 BUN 44 12/20/2020 CR 0.95 12/20/2020 GLU 142 12/20/2020 CA 8.8 12/20/2020 ALBUMIN 3.8 12/16/2020 MG 2.6 12/20/2020 TOTBILI 0.8 12/16/2020 Radiology: Reviewed Piedad Abdalla MD * Chanel Parker MD - 12/19/2020 12:54 PM CDT Associated Order(s): CONSULT HEART FAILURE PHYSICIAN Patient followed by CHF consult team, please see today's progress note. * Ayleen White MD - 12/17/2020 11:50 AM CDT Associated Order(s): CONSULT VASCULAR SURGERY PHYSICIAN Vascular Surgery Consult Patient: Carli Koroma, [id number] Admission Date: 12/07/2020, LOS: 10 days Admission Diagnosis: Chest pain [R07.9] Date of Service: December 17, 2020 CONSULT VASCULAR SURGERY PHYSICIAN Consult performed by: Ayleen White MD Consult ordered by: Rosalind Bryson APRN-YAYO ASSESSMENT: Carli Koroma is a 75 y.o. female with PMHx of dyslipidemia, HTN, DM, NSTEMI (12/06), s/p CABG (12/16) and IABP removal with sudden onset RLE ischemia. PLAN: - US RLE showed acute occlusive thrombus extending from right popliteal to R TUGBOAT OPERATOR and peroneal arteries. No PT/DP signals present. - Patient to OR for RLE embolectomy of RLE. The patient's daughter consented for the procedure and the risks and benefits of the procedure and alternatives were discussed with the patient's daughter (patient currently intubated and unable t o provide consent). Seen and discussed with staff surgeon, Dr. Edouard Guallpa MD. Ayleen White MD Service Pager: [phone] HPI: Carli Koroma is a 75 y.o. female with dyslipidemia, HTN, and Diabetes type 2, s/p CABG (12/16) with IABP and sudden onset RLE ischemia after IABP removal t his morning at 10:28. Patient is currently intubated but medical providers refer red palpable RLE distal pulses this morning before removal and shortly after onl y popliteal signals + and pulse palpable. RLE DP/PT signals absent. No past medical history on file. No past surgical history on file. No family history on file. Social History Tobacco Use Smoking status: Never Smoker Smokeless tobacco: Never Used Substance Use Topics Alcohol use: Not on file Your Current Medications: Instructions allopurinoL (ZYLOPRIM) 100 mg tablet Take 100 mg by mouth daily. Take with food . Indications: treatment to prevent acute gout attack antiox #8/om3/dha/epa/lut/zeax (PRESERVISION AREDS 2 (OMEGA-3) PO) Take 1 table t by mouth daily. atenoloL (TENORMIN) 100 mg tablet Take 100 mg by mouth daily. Indications: high blood pressure gabapentin (NEURONTIN) 300 mg capsule Take 300 mg by mouth five times daily. SITagliptin-metformin (JANUMET XR) 100-1,000 mg tablet Take 1 tablet by mouth d aily. Indications: type 2 diabetes mellitus Review of Systems Unable to perform ROS: Intubated Vitals: ABP: (95-154)/(18-64) Temp: [35.7 C (96.3 F)-38.2 C (100.8 F)] Pulse: [94-124] Respirations: [16 PER MINUTE-21 PER MINUTE] SpO2: [97 %-100 %] Body mass index is 22.86 kg/m. BMI Category: Acceptable (19 to <25) Physical Exam Vitals reviewed. Constitutional: Interventions: She is sedated and intubated. HENT: Head: Normocephalic. Cardiovascular: Pulses: Popliteal pulses are 2+ on the right side. Dorsalis pedis pulses are 0 on the right side. Posterior tibial pulses are 0 on the right side. Comments: Right DP/PT no detectable doppler signals. Pulmonary: Effort: She is intubated. Musculoskeletal: Right lower leg: No edema. Left lower leg: No edema. Skin: General: Skin is dry. Findings: Bruising present. No erythema. Comments: Capillary refill to distal RLE >3s. Extremity cold. Lab/Radiology/Other Diagnostic Tests: Lab Results Component Value Date/Time HGB 8.7 (L) 12/17/2020 02:14 AM HCT 25.4 (L) 12/17/2020 02:14 AM WBC 11.8 (H) 12/17/2020 02:14 AM PLTCT 172 12/17/2020 02:14 AM INR 1.2 12/16/2020 12:30 PM Lab Results Component Value Date/Time GLUPOC 137 (H) 12/17/2020 11:00 AM GLUPOC 137 (H) 12/17/2020 09:14 AM GLUPOC 133 (H) 12/17/2020 08:12 AM Lab Results Component Value Date/Time NA 143 12/17/2020 02:14 AM K 4.2 12/17/2020 02:14 AM CL 113 (H) 12/17/2020 02:14 AM CO2 22 12/17/2020 02:14 AM BUN 13 12/17/2020 02:14 AM CR 0.83 12/17/2020 02:14 AM MG 2.6 12/17/2020 02:14 AM CA 8.7 12/17/2020 02:14 AM CHEST SINGLE VIEW Final Result 1. Mild bibasilar opacities, likely atelectasis. 2. Interval decrease in pulmonary edema. Finalized by Sandy Hidalgo M.D. on 12/17/2020 8:18 AM. Dictated by Sandy arnold M.D. on 12/17/2020 8:16 AM. LINE PLCMT 1V CXR Final Result 1. Post CABG surgical changes as described above with vascular indistinction, li candace pulmonary edema. 2. Small left pleural effusion and bibasilar opacities, likely atelectasis. By my electronic signature, I attest that I have personally reviewed the images for this examination and formulated the interpretations and opinions expressed i n this report Finalized by Sandy Hidalgo M.D. on 12/16/2020 5:02 PM. Dictated by Ron Singh MD on 12/16/2020 1:[address] CHEST WO CONTRAST Final Result 1. Dense coronary artery calcifications with normal heart size. 2. Scattered pleural parenchymal scarring. No acute pulmonary abnormality. 3. Mild hepatic steatosis. 4. Small hiatal hernia. Finalized by Sunday Bragg MD on 12/15/2020 11:25 AM. Dictated by Sunday Bragg MD on 12/15/2020 11:21 AM. LIMITED ECHO Final Result VIABILITY STUDY (REST AND 4 HOUR DELAY) MPI REST TEST Final Result PV CAROTID ARTERY DUPLEX SCAN Final Result PV VEIN MAP ARTERIAL BYPASS GRAFT Final Result 2D + DOPPLER ECHO Final Result PANOREX EXAM Final Result Findings/Impression: There are several missing are previously extracted teeth and multiple dental res torations noted. There are dental caries and #18 and 19 as well as 7, 9, and 10. No periapical lucency is identified. Finalized by Robert Kramer M.D. on 12/08/2020 8:10 AM. Dictated by Robert Kramer M.D. on 12/08/2020 8:09 AM. CHEST SINGLE VIEW Final Result Improved patchy bilateral opacities likely improving pulmonary edema. Finalized by Johny Phillips M.D. on 12/07/2020 4:00 PM. Dictated by Josse Phillips M.D. on 12/07/2020 3:59 PM. CHEST 2 VIEWS (Results Pending) CHEST SINGLE VIEW (Results Pending) US DOPPLER ART LE RIGHT (Results Pending) Malnutrition Details: Active Wounds Wounds 12/16/20 0829 Surgical Incision Mid Sternum (Active) 12/16/20828 Sternum Wound Type: Surgical Incision Pressure Injury Stages: Pressure Injury Present On Inpatient Admission: Wound/Pressure Injury Orientation: Mid Wound Description (Comments): Wound Type:: Agree With My Assessment? Yes 12/17/20 040 Wound Dressing Status Intact 12/17/20799 Wound Dressing and / or Treatment Silverlon 12/17/20 08 Wound Base Assessment Dressing intact, base not assessed 12/17/20 08 Surrounding Skin Assessment Dry;Warm;Intact 12/17/20 08 Wound Site Closure Wound Adhesive Bandage 12/17/20 08 Number of days: 1 Wounds 12/16/20 0829 Surgical Incision (Active) 12/16/20 0829 Wound Type: Surgical Incision Pressure Injury Stages: Pressure Injury Present On Inpatient Admission: Wound/Pressure Injury Orientation: Wound Description (Comments): Wound Type:: Agree With My Assessment? Yes 12/17/20 0400 Wound Dressing Status Intact 12/17/20 08 Wound Dressing and / or Treatment Silverlon 12/17/20 08 Wound Securement / Protective Device Rina wrap 12/17/20 08 Surrounding Skin Assessment Warm;Dry;Intact 12/17/20 08 Wound Site Closure Wound Adhesive Bandage;Sutures 12/17/20 0800 Number of days: 1 Wounds 12/16/20 0848 Surgical Incision Inner;Upper;Left Leg (Active) 12/16/20 0848 Leg Wound Type: Surgical Incision Pressure Injury Stages: Pressure Injury Present On Inpatient Admission: Wound/Pressure Injury Orientation: Inner;Upper;Left Wound Description (Comments): Wound Type:: Agree With My Assessment? Yes 12/17/20 0400 Wound Dressing Status Intact 12/17/20799 Wound Securement / Protective Device Rina wrap 12/17/20 08 Wound Base Assessment Dressing intact, base not assessed 12/17/20 08 Surrounding Skin Assessment Warm;Dry;Intact 12/17/20799 Wound Site Closure Steri-strips;Approximated 12/17/20 08 Number of days: 1 Ayleen White MD PGY1 Surgery Resident Service pager #[phone] Associated attestation - Edouard Guallpa MD - 12/17/2020 2:44 PM CDT Pt seen and examined by me today with the resident staff, I independently review ed the arterial duplex of the right leg. She is on high dose epinephrine for BP, had a balloon pump removed from right gr oin with subsequent loss of signals / pulses right foot. Right groin palpable pulse. Right popliteal palpable pulse. Very weak PT signa l at the ankle, no clear DP signal. Duplex shows thrombus sitting in the distal popliteal artery, no PSA in the right groin. Most likely thrombus formed around the sheath and this embolized distally when t he sheath was removed. Will plan for urgent to the OR --> right popliteal cutdown and embolectomy. Discussed directly with CT surgery staff Dr Webster. Right leg marked, consent obtained from daughter as Pt is intubated / sedated. * Sumi Abernathy DDS - 12/11/2020 11:32 AM CDT Associated Order(s): CONSULT DENTAL Dental Consult Note Admission Date: 12/07/2020 LOS: 4 days Reason for Consult: Dental clearance for CABG workup (no valve work indicated a t this time). Panorex complete. Thank you! Consult type: Opinion Assessment/Plan Pt seen for dental consult w/ son and daughter present. Pt reports it has been s everal years since her last dental visit, and she does not have regular care but mostly goes when she has pain. She is concerned about her teeth breaking off (p ointed to max ant), but denies any pain in her teeth. She thinks the LL has been broken for several years. Pano reveals likely caries or fracture on #7, 8, 9, and large caries or fracture on #18, 19. There is no obvious PARL. Limited exam reveals #7, 8, 9, 18, 19 demonstrate fractures w/o any obvious janice es. These teeth do clinically appear to be restorable. #18, 19 would need RCT an d crown to restore. #7, 8, 9 could likely be restored w/ fillings. We discussed restorations options and the relation between the heart and teeth, and I informed pt she really needs to establish regular dental care, as teeth in fection can cause infection in her heart. There are no signs of infection at thi s time. --No surgical intervention indicated from a dental perspective prior to CABG. Fr actured teeth appear restorable and do not demonstrate infection. History of Present Illness: Carli Koroma is a 75 y.o. female seen dental consul t. No past medical history on file. No past surgical history on file. Social History Socioeconomic History Marital status: Spouse name: Not on file Number of children: Not on file Years of education: Not on file Highest education level: Not on file Occupational History Not on file Tobacco Use Smoking status: Never Smoker Smokeless tobacco: Never Used Substance and Sexual Activity Alcohol use: Not on file Drug use: Not on file Sexual activity: Not on file Other Topics Concern Not on file Social History Narrative Not on file Social Determinants of Health Financial Resource Strain: Difficulty of Paying Living Expenses: Food Insecurity: Worried About Running Out of Food in the Last Year: Ran Out of Food in the Last Year: Transportation Needs: Lack of Transportation (Medical): Lack of Transportation (Non-Medical): Physical Activity: Days of Exercise per Week: Minutes of Exercise per Session: Stress: Feeling of Stress : Social Connections: Frequency of Communication with Friends and Family: Frequency of Social Gatherings with Friends and Family: Attends [employer] Services: Active Member of Clubs or Organizations: Attends Club or Organization Meetings: Marital Status: Intimate Partner Violence: Fear of Current or Ex-Partner: Emotionally Abused: Physically Abused: Sexually Abused: Vaping/E-liquid Use Vaping Use Never User Allergies: Patient has no known allergies. Scheduled Meds:allopurinoL (ZYLOPRIM) tablet 100 mg, 100 mg, Oral, QDAY aspirin EC tablet 81 mg, 81 mg, Oral, QDAY furosemide (LASIX) tablet 20 mg, 20 mg, Oral, QDAY gabapentin (NEURONTIN) capsule 300 mg, 300 mg, Oral, QDAY(12) gabapentin (NEURONTIN) capsule 600 mg, 600 mg, Oral, QHS gabapentin (NEURONTIN) capsule 600 mg, 600 mg, Oral, QDAY(17) heparin (porcine) BOLUS for continuous inf (vial) 1,260-2,510 Units, 20-40 Units /kg, Intravenous, As Prescribed insulin aspart U-100 (NOVOLOG FLEXPEN) injection PEN 0-12 Units, 0-12 Units, Sub cutaneous, ACHS (22) metoprolol tartrate (LOPRESSOR) tablet 12.5 mg, 12.5 mg, Oral, QDAY metoprolol tartrate (LOPRESSOR) tablet 25 mg, 25 mg, Oral, QDAY pantoprazole DR (PROTONIX) tablet 40 mg, 40 mg, Oral, QDAY(21) Continuous Infusions: heparin (porcine) 20,000 units/D5W 500 mL infusion (std conc)(premade) 855 U nits/hr (12/11/20 0721) PRN and Respiratory Meds:acetaminophen Q4H PRN, bisacodyL QDAY PRN, calcium gluc joe IV PRN (Nutrition Services Aide from Rx) AND Ionized Calcium PRN AND Notify Physi heladio Ongoing, magnesium sulfate PRN AND Magnesium PRN AND Notify Physici an Ongoing, milk of magnesia (CONC) QDAY PRN, ondansetron (ZOFRAN) IV Q6H PRN, p olyethylene glycol 3350 BID PRN, senna/docusate BID PRN, sodium phosphate IVPB PRN (Nutrition Services Aide from Rx) OR sodium phosphate IVPB PRN (Nutrition Services Aide from Rx) OR sodium phosphate IVPB PRN (Nutrition Services Aide from Rx) Review of Systems: Vital Signs: Last Filed in 24 hours Vital Signs: 24 hour Range BP: 126/63 (12/110) Temp: 36.3 C (97.4 F) (12/12 1119) Pulse: 75 (12/110) Respirations: 16 PER MINUTE (12/12 1119) SpO2: 94 % (12/12 1119) BP: (106-137)/(53-78) Temp: [36.3 C (97.4 F)-37.2 C (98.9 F)] Pulse: [75-103] Respirations: [16 PER MINUTE] SpO2: [93 %-95 %] Physical Exam: See above. Lab/Radiology/Other Diagnostic Tests: Pertinent labs reviewed Pertinent radiology reviewed. Sumi Abernathy DDS Pager [phone] or voalte * Neymar Potter, AJ-STRAIGHTENER HAND - 12/11/2020 11:20 AM CDT Associated Order(s): CONSULT HEART FAILURE PHYSICIAN Images from the original note were not included. Heart Failure Consult NAME:Carli Koroma :1945 AGE: 75 y.o. 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 female who initially presented to outside hospit al in [place], [place] on 12/06/20 reporting chief complaint of chest pain, shortness of breath, nausea with diaphoresis. She was found to have elevated troponin with NSTEMI; went to clinical laboratory technician for IABP placement. Her IABP was placed to SFA and de veloped a leak; therefore it was discontinued to prior to her transfer to [facility]. She was also found to have elevated BNP on 927 with reduced ejection fraction on echocardiogram. Past medical history includes HTN, HLD, DM 2. Recommendations: 1. Routine EKG and BNP ordered 2. D/C lopressor 3. Start Toprol XL 25 mg qhs 4. Start Spironolactone 12.5 mg po daily 5. Continue Heparin gtt; pt will need lipid management after bypass surgery comp leted 6. Will need to start pt on lipid therapy after surgery 7. Thank you for consult; will continue to follow along Pt seen and examined with Dr Carina Potter SHOE STAINER Pager # [phone] Available on Voalte Assessment: Acute on chronic systolic HFrEF, EF: 30%. Major Complications or Comorbidities (LONGTERM): acute/ acute on chronic systolic and /or diastolic heart failure NYHA functional class III (marked limitation of physical activity - comfortable at rest, but less than ordinary activity causes symptoms of HF e.g., getting mariano ssed or standing from a sitting position), ACC Stage C (structural heart disease with prior or current symptoms of HF). She presents with signs of hypervolemia with left ventricular failure without s igns of low flow state. Admission BNP: 927 on 12/06 (OSH) Prior to admission diuretic regimen: None Intake/Output: Entire stay net: -58 mL, Last 24 hr net: +683 mL Goal Dry Weight: ~130 lbs Admission Weight: 62.8 kg (138 lb 6.4 oz) Most recent weights (inpatient): Vitals: 12/10/20 0400 12/10/20 0700 12/11/20 0634 Weight: 60.2 kg (132 lb 12.8 oz) 60.2 kg (132 lb 11.5 oz) 59.6 kg (131 lb 6.4 oz ) Guideline Based Heart Failure Therapies: GDMT TUGBOAT OPERATOR Changes BB Atenolol 100 mg po daily Metoprolol 25 mg in AM, 12.5 mg in PM 12/11 Toprol XL 25 mg qhs ACEI/ARB/ARNI Previously on Irbesartan *will consider low dose Losartan after s urgery SGLT-2 Inhibitor N/A Aldosterone Antagonist N/A 12/11 Starting Spironolactone 12.5 mg daily Hydralazine/Nitrate N/A Ivabradine N/A HRMT N/A *pt may benefit from BUS COMPANY MANAGER-D if EF does not improve with GDMT Anticoagulation for Afib/flutter N/A Cardiac Rehab Evaluation for LVEF <40% Will plan for upon discharge Diuretic Therapy Prior to admission dose N/A Given on admission 12/07 IV lasix 40 mg x1 Daily Dosing 12/08-12/11 Lasix 20 mg po daily Cardiomyopathy - likely secondary to ischemic etiology after recent VA - no TUGBOAT OPERATOR GDMT; will start with low dose Toprol XL and Spironolactone, consider l ow dose Losartan after surgery - pt may require BUS COMPANY MANAGER-D in outpt setting w/ LBBB on EKG NSTEMI, CAD - pt presented to OSH w/ NSTEMI; had IABP placed initially; transferred to [facility] for further management - 12/07 admit troponin >22.9>18.63>12.99>11.67>4/59 on 12/09 - CTS team planning for CABG HLD - 12/08 lipid panel: Cholesterol 215, trigs 358, HDL 30, LDL 141 - no TUGBOAT OPERATOR statins; will need to be initiated on statin therapy - pt reports she's not tolerated crestor in the past > managed per primary team DM 2 - 12/07/20 HgbA1c 5.9 - TUGBOAT OPERATOR Janumet XR on hold during admission > managed per primary team CKD II - admit creatinine 0.71-->0.67 today - daily labs per primary team Subjective: She currently complains of fatigue. She currently denies shortness of breath, dyspnea on exertion, paroxysmal noctu rnal dyspnea, orthopnea, lightheadedness, positional lightheadedness, near synco pe, palpitations, chest pain, abdominal fullness, peripheral edema and weight ch jody. Review of Systems: A comprehensive review of systems was negative except for: Musculoskeletal: posi tive for neuropathic pain to BLE Endocrine: positive for Diabetes mellitus Type II on oral hypoglycemics No past medical history on file. No past surgical history on file. No family history on file. Social History Socioeconomic History Marital status: Spouse name: Not on file Number of children: Not on file Years of education: Not on file Highest education level: Not on file Occupational History Not on file Tobacco Use Smoking status: Never Smoker Smokeless tobacco: Never Used Substance and Sexual Activity Alcohol use: Not on file Drug use: Not on file Sexual activity: Not on file Other Topics Concern Not on file Social History Narrative Not on file Objective: Allergies: No Known Allergies Medications: Scheduled Meds:allopurinoL (ZYLOPRIM) tablet 100 mg, 100 mg, Oral, QDAY aspirin EC tablet 81 mg, 81 mg, Oral, QDAY furosemide (LASIX) tablet 20 mg, 20 mg, Oral, QDAY gabapentin (NEURONTIN) capsule 300 mg, 300 mg, Oral, QDAY(12) gabapentin (NEURONTIN) capsule 600 mg, 600 mg, Oral, QHS gabapentin (NEURONTIN) capsule 600 mg, 600 mg, Oral, QDAY(17) heparin (porcine) BOLUS for continuous inf (vial) 1,260-2,510 Units, 20-40 Units /kg, Intravenous, As Prescribed insulin aspart U-100 (NOVOLOG FLEXPEN) injection PEN 0-12 Units, 0-12 Units, Sub cutaneous, ACHS (22) metoprolol tartrate (LOPRESSOR) tablet 12.5 mg, 12.5 mg, Oral, QDAY metoprolol tartrate (LOPRESSOR) tablet 25 mg, 25 mg, Oral, QDAY pantoprazole DR (PROTONIX) tablet 40 mg, 40 mg, Oral, QDAY(21) Continuous Infusions: heparin (porcine) 20,000 units/D5W 500 mL infusion (std conc)(premade) 855 U nits/hr (12/11/20 0721) PRN and Respiratory Meds:acetaminophen Q4H PRN, bisacodyL QDAY PRN, calcium gluc joe IV PRN (Nutrition Services Aide from Rx) AND Ionized Calcium PRN AND Notify Physi heladio Ongoing, magnesium sulfate PRN AND Magnesium PRN AND Notify Physici an Ongoing, milk of magnesia (CONC) QDAY PRN, ondansetron (ZOFRAN) IV Q6H PRN, p olyethylene glycol 3350 BID PRN, senna/docusate BID PRN, sodium phosphate IVPB PRN (Nutrition Services Aide from Rx) OR sodium phosphate IVPB PRN (Nutrition Services Aide from Rx) OR sodium phosphate IVPB PRN (Nutrition Services Aide from Rx) Medications Prior to Admission Medication Sig Dispense Refill Last Dose allopurinoL (ZYLOPRIM) 100 mg tablet Take 100 mg by mouth daily. Take with f ood. Indications: treatment to prevent acute gout attack antiox #8/om3/dha/epa/lut/zeax (PRESERVISION AREDS 2 (OMEGA-3) PO) Take by mouth. atenoloL (TENORMIN) 100 mg tablet Take 100 mg by mouth daily. Indications: h igh blood pressure gabapentin (NEURONTIN) 100 mg capsule Take 300 mg by mouth daily. Indication s: neuropathic pain gabapentin (NEURONTIN) 600 mg tablet Take 600 mg by mouth twice daily. Indic ations: neuropathic pain SITagliptin-metformin (JANUMET XR) 100-1,000 mg tablet Take 1 tablet by mout h daily. Indications: type 2 diabetes mellitus Vital Signs: Last Filed Vital Signs: 24 Hour Range BP: 126/63 (12/12 1119) Temp: 36.3 C (97.4 F) (12/12 1119) Pulse: 75 (12/12 1119) Respirations: 16 PER MINUTE (12/12 1119) SpO2: 94 % (12/12 1119) BP: (106-137)/(53-78) Temp: [36.3 C (97.4 F)-37.2 C (98.9 F)] Pulse: [75-103] Respirations: [16 PER MINUTE] SpO2: [93 %-95 %] Intensity Pain Scale (Self Report): 9 (12/10/20 1730) Wt Readings from Last 10 Encounters: 12/11/20 59.6 kg (131 lb 6.4 oz) Physical Exam: General Appearance: thin elderly female, appears stated age, no distress Eyes: conjunctivae and lids normal, pupils are equal and round Teeth/Gums/Palate: poor dentition Lips & Oral Mucosa: no pallor or cyanosis Neck Veins: JVP ~5cm, HJR negative Chest Inspection: chest is normal in appearance Respiratory Effort: breathing comfortably, no respiratory distress Auscultation: lungs clear to auscultation, no rales or rhonchi, no wheezing Cardiac Rhythm: regular rhythm and normal rate Cardiac Auscultation: S1, S2 present but clear splitting not heard Murmurs: no murmur Radial Arteries: normal symmetric radial pulses Pedal Pulses: normal symmetric pedal pulses Lower Extremity Edema:no lower extremity edema Peripheral Circulation: distal upper and lower extremities warm, well-perfused a nd with delayed capilary refill Abdominal Exam: soft, non-tender, no masses, bowel sounds normal Muscle Strength: decreased muscle tone Orientation: oriented to time, place and person Affect & Mood: appropriate and sustained affect Language and Memory: patient responsive and seems to comprehend information Neurologic Exam: neurological assessment grossly intact and moves all extremitie s Laboratory Review: CBC w diff Lab Results Component Value Date/Time WBC 8.6 12/11/2020 04:10 AM RBC 4.02 12/11/2020 04:10 AM HGB 12.6 12/11/2020 04:10 AM HCT 36.6 12/11/2020 04:10 AM MCV 91.1 12/11/2020 04:10 AM MCH 31.3 12/11/2020 04:10 AM MCHC 34.4 12/11/2020 04:10 AM RDW 14.1 12/11/2020 04:10 AM PLTCT 161 12/11/2020 04:10 AM MPV 8.8 12/11/2020 04:10 AM Lab Results Component Value Date/Time NEUT 63 12/11/2020 04:10 AM ANC 5.30 12/11/2020 04:10 AM LYMA 22 (L) 12/11/2020 04:10 AM ALC 1.90 12/11/2020 04:10 AM IMAN 14 (H) 12/11/2020 04:10 AM AMC 1.20 (H) 12/11/2020 04:10 AM EOSA 1 12/11/2020 04:10 AM AEC 0.10 12/11/2020 04:10 AM BASA 0 12/11/2020 04:10 AM ABC 0.00 12/11/2020 04:10 AM Chemistry Lab Results Component Value Date/Time NA 138 12/11/2020 04:10 AM K 3.7 12/11/2020 04:10 AM CL 101 12/11/2020 04:10 AM CO2 24 12/11/2020 04:10 AM GAP 13 (H) 12/11/2020 04:10 AM BUN 14 12/11/2020 04:10 AM CR 0.67 12/11/2020 04:10 AM GLU 152 (H) 12/11/2020 04:10 AM Lab Results Component Value Date/Time CA 9.4 12/11/2020 04:10 AM ALBUMIN 3.8 12/11/2020 04:10 AM TOTPROT 6.9 12/11/2020 04:10 AM ALKPHOS 59 12/11/2020 04:10 AM AST 19 12/11/2020 04:10 AM ALT 8 12/11/2020 04:10 AM TOTBILI 1.1 12/11/2020 04:10 AM GFR >60 12/11/2020 04:10 AM GFRAA >60 12/11/2020 04:10 AM Renal Function Lab Results Component Value Date/Time NA 138 12/11/2020 04:10 AM K 3.7 12/11/2020 04:10 AM CL 101 12/11/2020 04:10 AM CO2 24 12/11/2020 04:10 AM GAP 13 (H) 12/11/2020 04:10 AM BUN 14 12/11/2020 04:10 AM BUN 16 12/10/2020 04:06 AM BUN 20 12/09/2020 04:41 AM Lab Results Component Value Date/Time CR 0.67 12/11/2020 04:10 AM CR 0.72 12/10/2020 04:06 AM CR 0.70 12/09/2020 04:41 AM GLU 152 (H) 12/11/2020 04:10 AM CA 9.4 12/11/2020 04:10 AM ALBUMIN 3.8 12/11/2020 04:10 AM Lipid Profile INR Lab Results Component Value Date CHOL 215 (H) 12/08/2020 TRIG 358 (H) 12/08/2020 HDL 30 (L) 12/08/2020 LDL 141 (H) 12/08/2020 VLDL 72 12/08/2020 NONHDLCHOL 185 12/08/2020 Lab Results Component Value Date INR 1.2 12/11/2020 12/07/20 Chest X-Ray: Improved patchy bilateral opacities likely improving pulmonary edema. Tele/ECG: SR, LBBB, HR 79, QTc 482 Echocardiogram Details: Echo Results (Last 3 results in the past 3 years) Echo EF LVIDD LA Size IVS LVPW Rest PAP (12/10/20) 30 (12/10/20) 5.50 (12/10/20) 3.70 (12/10/20) 1.10 (12/10/20) 0.80 (12/10/20) 34 12/10/20 Echo: The left ventricle is mildly dilated. Eccentric hypertrophy. The left ventric ular systolic function is moderately reduced. The visually estimated ejection fr action is 30%. There are segmental wall motion abnormalities, as coded in the di agram below. The right ventricular size is normal. The right ventricular systolic function is hyperdynamic. Normal biatrial size. No significant valvluar abnormalities. Estimated Peak Systolic PA Pressure 34 mmHg No pericardial effusion. Associated attestation - Lloyd Lim DO - 12/12/2020 8:43 AM CDT Cardiology Staff Physician Attestation Reason for consult: heart failure, NSTEMI, CAD Carli Koroma is a 75 y.o. female with PMH of hypertension, hyperlipidemia, wh o was developed acute chest pain on Wednesday. Initially she thought it was acid r eflux but after extensive discussion with her daughter she decided to go to [facility] department. Her troponin was elevated with peak of 40. She underwent ang iogram which showed three-vessel coronary disease with ostial LAD, circumflex an d subtotal occlusion of RCA. Her echocardiogram showed LVEF of 25 to 30%. Ther e was hypertrophy of anterior and lateral wall. There are some calcification of inferior wall suggestive of prior transmural infarct. Patient had intra-aortic balloon pump which was removed. She reports feeling much better now. She is c hest pain-free. She is scheduled to undergo viability study tomorrow morning. Patient's past medical history, past surgical history, social history, family hi story, allergies, home medications, review of symptoms was performed in detail. Please see details above in a note. Vitals: 12/12/20 0732 BP: 130/57 Pulse: 82 Temp: 37.1 C (98.8 F) SpO2: 97% HEENT:NCAT, atraumatic, no GLORIA Neck:JVP 7 cm No edema of lower extremity Heart: 2 out of 6 holosystolic murmur Lungs:Decreased breath sounds laterally Abdomen is soft and nontender Skin: Soft and nontender Please see above note which was reviewed for more details 14 point ROS was positive for shortness of breath, chest pain, orthopnea and PND . Otherwise the 14 point ROS was negative Recent labs, radiology and other diagnostics studies were reviewed. Echocardiogram akinesis of inferior wall with some calcification, LVEF 30%, norm al RV function, CXR mild pulmonary vascular congestion Cardiac catheterization was reviewed which shows ostial LAD lesion of 90%, dista l LAD disease, subtotal occlusion of mid RCA, moderate circumflex lesion in prox imal segment My impression is NSTEMI, coronary artery disease, ischemic cardiomyopathy, hyper tension, hyperlipidemia Plan: Patient will have viability study tomorrow. She does have good targets fo r bypass surgery. We will recommend gentle diuresis. Patient is high risk for complication but bypass surgery is optimal treatment option at this time. We wi ll continue with her heparin. No RINA inhibitor/ARB or Arni. She will be starte d on low-dose Aldactone. She will be continued on low-dose beta-doug. Patie nt will need aggressive diuretic medical therapy after her revascularization. S he should see us in office after surgery. We will continue to follow along. I do not believe right catheterization will liner roll changer and we will not coor dinate this time. I have personally interviewed and examined the patient, have reviewed the medica l record & all pertinent medical documentation including the HPI, physical exam, & impression, and jointly formulated the treatment plan as outlined by the STRAIGHTENER HAND The Complexity of medical decision making is high due to the multi-system diseas es present and the complexity and acuity of the pt's current clinical status wit h concerns including but not limited to complexity/severity and gravity of the p atient's underlying cardiac illnesses and interplay of other issues. I personally interviewed and examined the patient. I have examined the patient, reviewed the history, physical impression and plan outlined by the resident, alva and agree with my edits as outlined below. Staff client administrator: Lloyd Lim DO documented in this encounter Miscellaneous Notes * Case Mgmt DC Plan - Brittany Denny - 12/25/2020 11:08 AM CDT Case Management Progress Note NAME:Carli Koroma :1944 AGE: 75 y.o. ADMISSION DATE: 12/07/2020 DAYS ADMITTED: LOS: 18 days Todays Date: 12/25/2020 Plan Pt to dc today at [facility] via family vehicle at 1030 for next level of care. Per CTS team huddle this am, pt is medically ready for dc today. Interventions Support Support: Pt/Family Updates re:POC or DC Plan Info or Referral Information or Referral to Community Resources: No Needs Identified Discharge Planning Discharge Planning: Inpatient Rehabilitation SW completed transfer packet and placed in [facility]. SW faxed signed dc orders to [facility] at [phone] and notified Ximena in admission s of incoming information. She confirmed their ability to accept pt today. RN to call report to [phone] when able. Medication Needs Medication Needs: No Needs Identified o Financial Financial: No Needs Identified Legal Legal: No Needs Identified Other Other/None: No needs identified Disposition Expected Discharge Date 12/25/2020 10:00 AM Transportation Does the patient need discharge transport arranged?: No Transportation Name, Phone and Availability #1: Patient's dgt [facility] Does the patient use Medicaid Transportation?: No Next Level of Care (Acute Psych discharges only) Discharge Disposition Selected Continued Care - Discharged on 12/25/2020 Admission date: 12/07/2020 - Dis charge disposition: Rehab Facility (Not TUS) [facility] Destination Coordination complete Service Provider Selected Services Address Phone Fax Patient Preferred [facility] Inpatient Rehabilitation [address] [facility] [address] [phone] Brittany Denny LMSW Surgery - Cardiothoracic/Vascular Ferry Operator *[id number] * Case Mgmt DC Plan - Jeannine Montesinos - 12/25/2020 9:20 AM CDT Case Management Progress Note NAME:Carli Koroma :1944 AGE: 75 y.o. ADMISSION DATE: 12/07/2020 DAYS ADMITTED: LOS: 18 days Todays Date: 12/25/2020 Plan DC today Interventions Support Support: Pt/Family Updates re:POC or DC Plan Info or Referral Information or Referral to Community Resources: No Needs Identified Discharge Planning Discharge Planning: Inpatient Rehabilitation Confirmed that pt LV was fitted/and at bedside for dc today Medication Needs Medication Needs: No Needs Identified Financial Financial: No Needs Identified Legal Legal: No Needs Identified Other Other/None: No needs identified Disposition Expected Discharge Date 12/25/2020 10:00 AM Transportation Does the patient need discharge transport arranged?: No Transportation Name, Phone and Availability #1: Patient's dgt Sandra Does the patient use Medicaid Transportation?: No Discharge Disposition Selected Continued Care - Admitted Since 12/07/2020 [facility] Destination Coordination complete Service Provider Selected Services Address Phone Fax Patient Preferred [facility] Inpatient Rehabilitation [address] [facility] [address] [phone] Jeannine BUTLER, laborer hide house Nurse Air Pollution Specialist Inpatient Cardiothoracic Surgery * Care Plan - Pearl Fuller RN - 12/25/2020 8:23 AM CDT Pt aware of plan to discharge today to rehab. Problem: Discharge Planning Goal: Participation in plan of care Outcome: Goal Achieved Goal: Knowledge regarding plan of care Outcome: Goal Achieved Goal: Prepared for discharge Outcome: Goal Achieved Problem: High Fall Risk Goal: High Fall Risk Outcome: Goal Achieved Problem: Mobility/Activity Intolerance Goal: Maximize functional ADL's and mobility outcomes Outcome: Goal Achieved Problem: Cardiovascular Self Care Goal: Maximize Cardiovascular Knowledge Outcome: Goal Achieved Goal: Maximize Cardiovascular Attitudes Outcome: Goal Achieved Goal: Maximize Cardiovascular Behaviors. Outcome: Goal Achieved Problem: Infection, Risk of, Central Venous Catheter-Associated Bloodstream Infe ction Goal: Absence of CVC Associated Bloodstream infection Outcome: Goal Achieved Problem: Injury-Risk of, Non-Violent Physical Restraints Goal: Absence of Injury while physically restrained (Non-Violent) Outcome: Goal Achieved Problem: Skin Integrity Goal: Skin integrity intact Outcome: Goal Achieved Goal: Healing of skin (Wound & Incision) Outcome: Goal Achieved Goal: Healing of skin (Pressure Injury) Outcome: Goal Achieved Problem: Self-Care Deficit Goal: Maximize ADL functioning Outcome: Goal Achieved * Case Mgmt DC Plan - [place] - 12/24/2020 1:40 PM CDT Case Management Progress Note NAME:Carli Koroma :1944 AGE: 75 y.o. ADMISSION DATE: 12/07/2020 DAYS ADMITTED: LOS: 17 days Todays Date: 12/24/2020 Plan Dc planning for [facility] level of care at [facility] in [facility] via family vehicle. Per CTS team huddle this am, pt has LifeVest in place. Pt stable on RA. Contin ues to show small L pleural effusion. Weight down 4kg from admit. WBC 9.5 toda y. Pt ambulated 240 feet yesterday. Interventions Support Support: Pt/Family Updates re:POC or DC Plan Info or Referral Information or Referral to Community Resources: No Needs Identified Discharge Planning Discharge Planning: Inpatient Rehabilitation SW sent updates to September at [facility] via [facility] and notified her of pt being able to dc tomorrow as long as they still have a bed available. SW asked for her to f/u as soon as she was able if there were any issues. Medication Needs Medication Needs: No Needs Identified o Financial Financial: No Needs Identified Legal Legal: No Needs Identified Other Other/None: No needs identified Disposition Expected Discharge Date 12/25/2020 10:00 AM Transportation Does the patient need discharge transport arranged?: No Transportation Name, Phone and Availability #1: Patient's dgt Sandra Does the patient use Medicaid Transportation?: No Next Level of Care (Acute Psych discharges only) Discharge Disposition Selected Continued Care - Admitted Since 12/07/2020 [facility] Destination Coordination complete Service Provider Selected Services Address Phone Fax Patient Preferred [facility] Inpatient Rehabilitation [address] [facility] [address] [phone] Brittany Denny LMSW Surgery - Cardiothoracic/Vascular Ferry Operator *[id number] * Case Mgmt DC Plan - Jeannine Montesinos - 12/23/2020 2:20 PM CDT Case Management Progress Note NAME:Carli Koroma :1944 AGE: 75 y.o. ADMISSION DATE: 12/07/2020 DAYS ADMITTED: LOS: 16 days Todays Date: 12/23/2020 Plan Continue inpt care,dc to inpt facility with Lifevest Interventions Support Support: Pt/Family Updates re:POC or DC Plan Info or Referral Information or Referral to Community Resources: No Needs Identified Discharge Planning Discharge Planning: Inpatient Rehabilitation EMR and POC reviewed NCM confirmed with LV rep that they have received the LV referral and awaiting approval/delivery of same. Medication Needs Medication Needs: No Needs Identified Financial Financial: No Needs Identified Legal Legal: No Needs Identified Other Other/None: No needs identified Disposition Expected Discharge Date 12/25/2020 10:00 AM Transportation Does the patient need discharge transport arranged?: No Transportation Name, Phone and Availability #1: Patient's dgt [facility] Does the patient use Medicaid Transportation?: No Discharge Disposition Selected Continued Care - Admitted Since 12/07/2020 No services have been selected for the patient. Jeannine BUTLER, laborer hide house Nurse Air Pollution Specialist Inpatient Cardiothoracic Surgery * Case Mgmt DC Plan - Brittany Denny - 12/23/2020 10:18 AM CDT Case Management Progress Note NAME:Carli Koroma :1944 AGE: 75 y.o. ADMISSION DATE: 12/07/2020 DAYS ADMITTED: LOS: 16 days Todays Date: 12/23/2020 Plan Pt has been accepted to [facility] in [place] for IPR level of care. How ever, [facility] does not have bed availability until Wednesday. Per CTS team huddle this am, pt is s/p 7 from CABG x 2. Pt to continue on topro l 12.5mg BID, losartan, bASA, zetia, crestor. HF team continues to follow. Pt continues on lasix 40 PO QD for volume overload. Dc to IPR setting once accepte d. Pt will also need LifeVest at dc. Interventions Support Support: Pt/Family Updates re:POC or DC Plan SW reached out to pt's dgt and discussed sending referral to [facility] this morning. SW also provided education that PMR physician is recommending that pt may potentially be an acute IPR candidate but that her needs can also be met at SNF level of care. Dgt told SW that if pt is not accepted to [facility] acute IPR setting then they would prefer to bring her home and have her receive HH services with [place] [facility] HH agency. SW notified dgt that pt is a lso needing to be fitted for LifeVest per HF recommendations. Dgt told SW she h ad spoken to the SW for their acute IPR and that she would ask for her to call S W to further discuss referral. SW notified pt of being accepted to [facility] and that admit would need to be delayed until 12/25 d/t bed space. She understood same. SW asked if anyone in her family will be able to transport her to [facility] on day of dc and she confirme d with her dgt in the room that someone would be able to accommodate this reques t. Info or Referral Information or Referral to Community Resources: No Needs Identified Discharge Planning Discharge Planning: Inpatient Rehabilitation HALI faxed referral to [facility] for review via [facility] this morning and notified their clinical data coordinator of incoming information. HALI received update from September with admissions at [facility] and she notified SW they can accept pt for admit but will not have a bed available until Wednesday. HALI confirmed with September that they do not require a new covid test and that pt will need to arrive by no later than 1500 on day of admit. HALI updated PA of pt's acceptance. Medication Needs Medication Needs: No Needs Identified o Financial Financial: No Needs Identified Legal Legal: No Needs Identified Other Other/None: No needs identified Disposition Expected Discharge Date 12/25/2020 10:00 AM Transportation Does the patient need discharge transport arranged?: No Transportation Name, Phone and Availability #1: Patient's dgt Sandra [phone] Does the patient use Medicaid Transportation?: No Next Level of Care (Acute Psych discharges only) Discharge Disposition Selected Continued Care - Admitted Since 12/07/2020 [facility]U Destination Coordination complete Service Provider Selected Services Address Phone Fax Patient Preferred [facility] Inpatient Rehabilitation [address] [facility] [address] Brittany Denny LMSW Surgery - Cardiothoracic/Vascular Ferry Operator *[id number] * Case Mgmt DC Plan - Alina Hopper RN - 12/21/2020 12:01 PM CDT Case Management Progress Note NAME:Carli Koroma :1944 AGE: 75 y.o. ADMISSION DATE: 12/07/2020 DAYS ADMITTED: LOS: 14 days Todays Date: 12/21/2020 Plan Discharge planning ongoing. Anticipate patient to discharge to SNF with new Life Vest likely, next week. Interventions Support Support: Pt/Family Updates re:POC or DC Plan NCM reviewed EMR. NCM received update from CARLA Cantu that patient will require a Life Vest for discharge. NCM faxed initial referral and [facility] to follow up on Wednesday. Info or Referral Information or Referral to Community Resources: No Needs Identified Discharge Planning Discharge Planning: Durable Medical Equipment and Supplies, Custodial Fac ility Medication Needs Medication Needs: No Needs Identified Financial Financial: No Needs Identified Legal Legal: No Needs Identified Other Other/None: No needs identified Disposition Expected Discharge Date 12/24/2020 2:00 PM Transportation Does the patient need discharge transport arranged?: No Transportation Name, Phone and Availability #1: Patient's dgt Sandra [phone] Does the patient use Medicaid Transportation?: No Next Level of Care (Acute Psych discharges only) Discharge Disposition Selected Continued Care - Admitted Since 12/07/2020 No services have been selected for the patient. CARRIE Holden, RN [facility] Nurse Air Pollution Specialist [phone] and available on Voalte * Case Mgmt DC Plan - Brittany Denny - 12/20/2020 4:31 PM CDT Case Management Progress Note NAME:Carli Koroma :1944 AGE: 75 y.o. ADMISSION DATE: 12/07/2020 DAYS ADMITTED: LOS: 13 days Todays Date: 12/20/2020 Plan PMR team recommending SNF level of care. Pt's family is preferring for pt to dc to [facility] in [place]. Referral sent to [facility] for review in the even that pt do es not progress with therapies and is not eligible for IPR setting. Per CTS team huddle this am, pt had low UOP yesterday and team to monitor closel y today. PMR team consulted and they are recommending pt for dc to SNF setting. Team weaning O2 as able; currently 1L NC. Pt started on losartan tomorrow per HF recs. Interventions Support Support: Pt/Family Updates re:POC or DC Plan HALI spoke to pt and brooke Griffith in room this afternoon to begin discussing dc plan torsten needs. HALI discussed that even though pt was not able to work with PT/OT to day d/t echo, yesterdays recommendations were suggesting that pt could benefit f rom inpatient setting at time of dc. HALI provided education about PMR evaluation recommendations and that pt has been deemed more appropriate for SNF level of c are. Brooke Griffith told SW that her sister is the DON of oncology at [facility] in [place] and that family would prefer [facility] as a close by option. HALI offered to send the referral today and then f/u with t hem on Wednesday. Brooke was in agreement with HALI sending a referral but told SW that she and the rest of the family were hopeful that by the time pt is ready for dc, she can dc to home. Update 1645 HALI notified by bedside RN that pt's dgt wanted to speak with SW again about faci lity placement. SW called dgt and she notified SW that after speaking further w ith her sister, they would prefer for pt to go to [facility] in [place] i f she is able. SW tried to again discuss that pt is not appropriate for IPR set ting based on her current endurance/mobility level. SW told dgt she can f/u on Wednesday of next week and review PT/OT therapy evals and ask for PMR to f/u to det ermine if recommendations change at that time. Dgt appreciative of same. Info or Referral Information or Referral to Community Resources: No Needs Identified Discharge Planning Discharge Planning: Custodial Facility SW faxed referral to [facility] via [facility] and will plan to f/u with admissions office on Wednesday. Medication Needs Medication Needs: No Needs Identified o Financial Financial: No Needs Identified Legal Legal: No Needs Identified Other Other/None: No needs identified Disposition Expected Discharge Date 12/24/2020 2:00 PM Transportation Does the patient need discharge transport arranged?: No Transportation Name, Phone and Availability #1: Patient's dgt Sandra Does the patient use Medicaid Transportation?: No Next Level of Care (Acute Psych discharges only) Discharge Disposition Selected Continued Care - Admitted Since 12/07/2020 No services have been selected for the patient. Brittany Denny LMSW Surgery - Cardiothoracic/Vascular Ferry Operator *[id number] * Case Mgmt DC Plan - Brittany Denny - 12/19/2020 3:04 PM CDT Case Management Progress Note NAME:Carli Koroma :1944 AGE: 75 y.o. ADMISSION DATE: 12/07/2020 DAYS ADMITTED: LOS: 12 days Todays Date: 12/19/2020 Plan Dc planning for likely IPR setting at time of dc but PMR consult has yet to be c onsulted. Per EMR, pt is alert and oriented today; but having some delirium overnight. Ep icardial wires capped today. Milrinone decreased to 0.125mcg/kg/min. Continues on metoprolol 12.5mg BID. HF team to be re-engaged. CT's to be dc'd today. Percy guilleny to be dc'd. Continues on IV lasix. Pt is tele status. Interventions Support Support: Pt/Family Updates re:POC or DC Plan Info or Referral Information or Referral to Community Resources: No Needs Identified Discharge Planning Discharge Planning: Inpatient Rehabilitation, Custodial Facility SW reached out to PT/OT this afternoon to discuss appropriateness of having PMR consult placed to determine if she is best suited for this level of care. PT no tified SW they were in agreement with PMR consult and that OT is planning to karina luate pt tomorrow so that recs are updated for PMR team. SW reached out to ICU STRAIGHTENER HAND to request PMR consult to assist with dc planning. Medication Needs Medication Needs: No Needs Identified o Financial Financial: No Needs Identified Legal Legal: No Needs Identified Other Other/None: No needs identified Disposition Expected Discharge Date 12/24/2020 2:00 PM Transportation Does the patient need discharge transport arranged?: No Transportation Name, Phone and Availability #1: Patient's dgt Sandra Does the patient use Medicaid Transportation?: No Next Level of Care (Acute Psych discharges only) Discharge Disposition Selected Continued Care - Admitted Since 12/07/2020 No services have been selected for the patient. Brittany Denny LMSW Surgery - Cardiothoracic/Vascular Ferry Operator *[id number] * Case Mgmt DC Plan - Brittany Denny - 12/18/2020 11:44 AM CDT Case Management Progress Note NAME:Carli Koroma :1944 AGE: 75 y.o. ADMISSION DATE: 12/07/2020 DAYS ADMITTED: LOS: 11 days Todays Date: 12/18/2020 Plan Dc planning ongoing. Pt will need inpatient setting at time of dc. Per EMR, gabapentin increased to 300mg Q8h. Continues on epi; slow wean, milrin one, bASA, and statin. Needing 1L NC; wean. Pleural CT to stay today. Continu es on IV lasix. Interventions Support Support: Pt/Family Updates re:POC or DC Plan Info or Referral Information or Referral to Community Resources: No Needs Identified Discharge Planning Discharge Planning: Inpatient Rehabilitation, Custodial Facility SW to await updated post op PT/OT evaluations to determine best level of care fo r pt at time of dc. Pt likely to need inpatient d/t complicated post op course. Medication Needs Medication Needs: No Needs Identified o Financial Financial: No Needs Identified Legal Legal: No Needs Identified Other Other/None: No needs identified Disposition Expected Discharge Date 12/24/2020 2:00 PM Transportation Does the patient need discharge transport arranged?: No Transportation Name, Phone and Availability #1: Patient's dgt Sandra Does the patient use Medicaid Transportation?: No Next Level of Care (Acute Psych discharges only) Discharge Disposition Selected Continued Care - Admitted Since 12/07/2020 No services have been selected for the patient. Brittany Denny LMSW Surgery - Cardiothoracic/Vascular Ferry Operator *[id number] * Operative Report (DICTATED ONLY) - Musa Salinas MD - 12/17/2020 6:22 PM CDT THE [address] [address] PATIENT NAME: CARLI KOROMA MR#/PT#: [id number] Page 1 OPERATIVE REPORT DATE OF OPERATION: 12/17/2020 SURGEON: Musa Salinas MD BUSINESS RELATIONS MANAGER(S): Elver Puga MD. PREOPERATIVE DIAGNOSIS: 1. Acute right leg ischemia. 2. Severe coronary artery disease, status post coronary artery bypass. 3. Recent intra-aortic balloon pump with recent removal. 4. Ischemic cardiomyopathy. POSTOPERATIVE DIAGNOSIS: Same. OPERATIVE PROCEDURE: Right popliteal and tibial artery thrombectomy. ANESTHESIA: General. INDICATIONS FOR OPERATIVE PROCEDURE: The patient is a 75-year-old female with severe coronary artery disease and isch emic cardiomyopathy who underwent recent coronary artery bypass graft. She had an intra-aortic balloon pump via right femoral artery access that was removed ea bre today. She was noted to have loss of pulse in her right foot. Ultrasound showed acute-appearing arterial occlusion starting in the right popliteal artery extending through the posterior tibial artery. She presents for surgical thro mbectomy. FINDINGS: There was acute-appearing thrombus occluding the right popliteal artery extendin g into the proximal tibial vessels. Thrombectomy was performed with good restor ation of biphasic flow in the popliteal and proximal tibial vessels. There was monophasic distal posterior tibial artery flow with stronger biphasic flow in th e distal anterior tibial artery. DESCRIPTION AND FINDINGS OF OPERATIVE PROCEDURE: The patient was taken to the operating room and placed supine on the operating t able. She had an endotracheal tube in place and underwent general endotracheal anesthesia. Her right lower extremity was prepped and draped in normal sterile fashion. Ioban occlusive dressing was placed over the surgical field. Longitud inal incision was made on the medial aspect of the right calf. This incision wa s carried down through the subcutaneous tissue and medial fascia to expose the b elow-knee popliteal artery. The popliteal artery was carefully freed from surro unding tissue. She has been previously given 5000 units bolus of IV heparin. T he popliteal artery was encircled proximally and distally with Sandhu-tied vessel loops. A transverse arteriotomy was performed in the distal right popliteal ar casimiro. There was fresh thrombus noted within the artery that was carefully remov ed. This was carefully withdrawn resulting in good pulsatile inflow. A 3 Fogar ty embolectomy catheter was advanced retrograde up the popliteal artery without difficulty. This was withdrawn, until no residual thrombus. This catheter was then passed distally. This was directly passed down the anterior tibial artery and withdrawn. This was passed multiple times until no residual thrombus removed . This was also passed down the tibioperoneal trunk with efforts to irrigate it down both branches. The catheter was removed until no residual thrombus was re moved. The popliteal artery was flushed proximally and distally with heparinize d lactated Ringer solution after the thrombectomy was performed. A transverse a rteriotomy was then reapproximated with a running 6-0 Prolene suture. Prior to completion of the arterial closure, the arteries were backward and forward flush ed. The arterial closure completed and flow reconstituted the popliteal artery. Doppler assessment showed excellent biphasic flow in the popliteal artery as w ell as the tibioperoneal trunk and anterior tibial artery branches. There was a lso good biphasic flow in the distal dorsalis pedis artery and more monophasic f low in the posterior tibial artery. The subcutaneous tissue was well irrigated with saline irrigation. Fibrillar Surgicel was placed around the arterial closu re. The subcutaneous tissues were reapproximated with 3-0 Vicryl suture. Skin was reapproximated with running subcuticular 4-0 Vicryl. Mastisol and Steri-Str ips were applied. A sterile dressing was placed to the wound. Please note that I performed this procedure with the assistance of a resident. ESTIMATED BLOOD LOSS: 25 mL. SPECIMENS REMOVED: None. Musa Salinas MD KH / MEDQ /[id number] cc: - Musa Salinas MD - Jonn Terry DO, [address] , [place] [address], Fax: [phone] - Dario Webster MD, [address] [place] [phone], Fax: * Care Plan - Mulu Cuevas RN - 12/17/2020 5:13 PM CDT Problem: Discharge Planning Goal: Participation in plan of care Outcome: Goal Ongoing Goal: Knowledge regarding plan of care Outcome: Goal Ongoing Goal: Prepared for discharge Outcome: Goal Ongoing Problem: High Fall Risk Goal: High Fall Risk Outcome: Goal Ongoing Problem: Mobility/Activity Intolerance Goal: Maximize functional ADL's and mobility outcomes Outcome: Goal Ongoing Problem: Cardiovascular Self Care Goal: Maximize Cardiovascular Knowledge Outcome: Goal Ongoing Goal: Maximize Cardiovascular Attitudes Outcome: Goal Ongoing Goal: Maximize Cardiovascular Behaviors. Outcome: Goal Ongoing Problem: Infection, Risk of, Central Venous Catheter-Associated Bloodstream Infe ction Goal: Absence of CVC Associated Bloodstream infection Outcome: Goal Ongoing Problem: Injury-Risk of, Non-Violent Physical Restraints Goal: Absence of Injury while physically restrained (Non-Violent) Outcome: Goal Ongoing Problem: Skin Integrity Goal: Skin integrity intact Outcome: Goal Ongoing Goal: Healing of skin (Wound & Incision) Outcome: Goal Ongoing Goal: Healing of skin (Pressure Injury) Outcome: Goal Ongoing * Procedures (Immed Post or Bedside) - Elver Puga MD - 12/17/2020 2:21 PM CDT Brief Operative Note Name: Carli Koroma is a 75 y.o. female : 1945 MRN#: [id number] DATE OF OPERATION: 12/17/2020 Date: 12/17/2020 Pre Operative Dx: Ischemic leg [I99.8] Post Operative Dx: Post-op Diagnosis * Ischemic leg [I99.8] Procedure(s) (LRB): RIGHT LOWER EXTREMITY THROMBECTOMY (Right) Anesthesia Type: Anesthesia type not filed in the log. Surgeon(s) and Role: * Musa Salinas MD - Primary * Elver Puga MD - Resident - Assisting Findings: Thrombus involving the popliteal and anterior tibial arteries. Thrombectomy perf ormed with 3Fr Kasia balloon with return of distal pulses. Estimated Blood Loss: 25 mL Specimen(s) Removed/Disposition: None Complications: None Implants: None Drains: None Disposition: CTICU - guarded Elver Puga MD Pager #[phone] * Case Mgmt DC Plan - Brittany Denny - 12/16/2020 12:45 PM CDT Case Management Progress Note NAME:Carli Koroma :1944 AGE: 75 y.o. ADMISSION DATE: 12/07/2020 DAYS ADMITTED: LOS: 9 days Todays Date: 12/16/2020 Plan Dc planning ongoing at this time. Needs not known at this time. Pt to go to OR today for CABG with Dr. Webster. Pt with very high likelihood of IABP placement. Interventions Support Support: Pt/Family Updates re:POC or DC Plan Info or Referral Information or Referral to Community Resources: No Needs Identified Discharge Planning Discharge Planning: No Needs Identified SW and NCM will plan to f/u with pt and her post operatively and follow for PT/OT recommendations. Medication Needs Medication Needs: No Needs Identified o Financial Financial: No Needs Identified Legal Legal: No Needs Identified Other Other/None: No needs identified Disposition Expected Discharge Date 12/20/2020 2:00 PM Transportation Does the patient need discharge transport arranged?: No Transportation Name, Phone and Availability #1: Patient's dgt Sandra Does the patient use Medicaid Transportation?: No Next Level of Care (Acute Psych discharges only) Discharge Disposition Selected Continued Care - Admitted Since 12/07/2020 No services have been selected for the patient. Brittany Denny LMSW Surgery - Cardiothoracic/Vascular Ferry Operator *[id number] * Procedures (Immed Post or Bedside) - Abhinav Major MD - 12/16/2020 11:51 AM CDT Brief Operative Note Name: Carli Koroma is a 75 y.o. female : 1945 MRN#: [id number] DATE OF OPERATION: 12/16/2020 Date: 12/16/2020 Preoperative Dx: Coronary artery disease of [place] artery of [place] heart with stable angina pect francois ([facility]) [I25.118] Post-op Diagnosis * Coronary artery disease of [place] artery of [place] heart with stable angina pectoris (HCC) [I25.118] Procedure(s): CABG, USHA, EVH +/- IABP Surgeon(s) and Role: * Dario Webster MD - Primary * Tina Patiño PA-C - Assisting * Abhinav Major MD - Fellow Findings: COFFMAN to LAD, RSVG to OM. Estimated Blood Loss: not applicable Specimen(s) Removed/Disposition: none Complications: None Implants: None Drains: Other 32 fr x2, 24 fr x2 Disposition: ICU - stable Abhinav Major MD * Operative Report (Direct Entry) - Dario Webster MD - 12/16/2020 8:29 AM CDT OPERATIVE REPORT Name: Carli Koroma is a 75 y.o. female : 1945 MRN#: [id number] DATE OF OPERATION: 12/16/2020 Surgeon(s) and Role: * Dario Webster MD - Primary * Tina Patiño PA-C - Assisting * Abhinav Major MD - Fellow Preoperative Diagnosis: Coronary artery disease of [place] artery of [place] heart with stable angina pect francois (HCC) [I25.118] Post-op Diagnosis * Coronary artery disease of [place] artery of [place] heart with stable angina pectoris (HCC) [I25.118] Procedure(s): CABG x2, USHA, EVH, IABP Description and Findings of Operative Procedure: Procedures: 1. CABG x 2 with COFFMAN to LAD and SV to OM1 (CPT 48086, 00640) 2. Endoscopic Vein [place] (CPT 28507) 3. Right femoral arterial intraaortic balloon pump placement 4. Transesophageal echocardiography Approach: mediansternotomy Drains: 1 mediastinal 32 Georgian, 1 mediastinal 24 Georgian Chang, 1 Left chest 24 Georgian Chang Pacing Wires: atrial and ventricular Findings of Procedure: 1. All coronaries were more difusely diseased than expected 2. The ejection fraction was significantly reduced from her pre-op TTE, and is 1 0% Estimated Blood Loss: 300 mL Blood Products Administered: none Disposition: To ICU in stable but critical condition GRAFT MATRIX: Distal: Graft Source: Target Quality: Conduit Quality: Distal Suture: Prox. Sutu re: Flow/PI: LAD COFFMAN Fair Good 7-0 (dopplered) PDA RSVG Fair Good 7-0 6-0 (dopplered) Circumflex RSVG Fair Good 7-0 6-0 (dopplered) Diag RSVG Poor Good 7-0 6-0 (dopplered) Procedure in Detail: The risks, benefits, complications, treatment options, and expected outcomes wer e discussed with the patient. The possibilities of reaction to medication, pulmo nary aspiration, perforation of viscus, bleeding, recurrent infection, the need for additional procedures, failure to diagnose a condition, and creating a compl ication requiring transfusion or operation were discussed with the patient. The patient concurred with the proposed plan, giving informed consent. The patient w as taken to the operating room, identified as Carli Koroma and the procedure ve rified as Coronary Artery Bypass Grafting. A Time Out was held and the above inf ormation confirmed. Standard monitoring lines and [place] catheter were placed. General anesthesia was induced. The patient was prepped and draped in a sterile fashion. A right femor al arterial intraaortic balloon pump was placed and secured by me via ultrasound guidance. An endoscopic vein harvesting in the left legs was carried out by the physicians rn first assistant. A standard median sternotomy was performed. The left inte rnal mammary artery was taken down using cautery and clips. Intervenous heparin was given at the appropriate dose to obtain anticoagulation sufficient for CPB. The COFFMAN was then transected distally. The flow was excellent. The pericardium was then opened and the pericardial well was created. The site f or cannulation, cross clamp application and proximal anastomoses were recorded a nd personally evaluated by me. There was no significant plaque in any of these s ites. Concentric purse strings were placed and the aorta was cannulated with a 6mm sof tflow cannula. After adequate de-airing this cannula was connected to the CPB ci rcuit. A purse string was placed around the right atrial appendage and it was ca nnulated with a large triple stage venous cannula. Prior to initiating CPB the L USHA was fashioned to the appropriate length. Cardiopulmonary bypass was then initiated. The distal targets (PL, OM1, and mid- LAD) were then evaluated and marked. The PL was tiny and shrouded in fat. Given the normal RV function and the chronic total occlusion of the RCA, this target w as not though to contribute to her overall short of joint terminal attack controller survival. The hear t retractor was then placed into the appropriate position. An antegrade/retrogra de vent/cardioplegia cannula was then placed. The aortic cross clamp was then ap plied and the heart was arrested with 1200 cc antegrade/retrograde (Buckberg) ca rdioplegia. Cardioplegia was thereafter administered intermittantly to ensure ad equate myocardial protection. The distal anastomosis to the OM was completed first. After postioniong the hear t, the artery was opened and RSV was ananstomosed to the artery using 7-0 prolen e in a running fashion. Prior to completing the anastomosis it was probed proxim ally and distally to ensure patency. Next the COFFMAN to LAD anastomosis was completed in a similar fashion with 7-0 pro allie. Prior to completing the anastomosis it was probed to ensure patency. The proximal anastomosis were then completed in the standard fashion using 6-0 p rolene in a running fashion. After adequate deairing maneuvers, the cross clamp was removed and the heart was reperfused for 20 minutes. Examination of all surgical sites revealed good hemostasis. Ventricular epicardi al pacing wires were then placed. The patient was fully ventillated and successf ully weaned off of CPB using the IABP at 1:1 augmentation with Epinephrine at 0. 08 mcg/kg/min. After a test dose of protamine, the patient was fully decannulate d. The heparin was fully reversed with protamine. Again, examination of all surg ical sites were evaluated for hemostasis which was good. Post-bypass AIDAN revealed improved RV/LV function to 25-30% and no new wall motio n abnormalities. The cardiac index was 2.2 from a preop index of 1.5. Bialteral pleural as well as mediastinal drains were placed. The sternum was chantel sed using stainless steel wires. The fascia was closed with 2-0 Maxon and the de ep dermal with 2-0 Vicryl. The skin was closed with surgical sutures. A sterile dressing was applied over the incision. At the end of the operation, all sponge, instruments, and needle counts were cor rect. The patient tolerated the procedure without complication and was transported to the CTICU in stable but highly critical condition. Estimated Blood Loss: No blood loss documented. Specimen(s) Removed/Disposition: * No specimens in log * Attestation: I performed this procedure with a resident. Complications: None Implants: None Disposition: ICU - stable Dario Webster MD Pager * Care Plan - Clarice Álvarez RN - 12/16/2020 1:26 AM CDT Problem: Discharge Planning Goal: Participation in plan of care Outcome: Goal Ongoing Flowsheets (Taken 12/16/2020 0126) Participation in Plan of Care: Involve patient/caregiver in care planning decisi on making Goal: Knowledge regarding plan of care Outcome: Goal Ongoing Flowsheets (Taken 12/16/2020 0126) Knowledge regarding plan of care: Provide plan of care education Provide fall prevention education Provide procedural and treatment education Provide infection prevention education Goal: Prepared for discharge Outcome: Goal Ongoing Problem: Cardiovascular Self Care Goal: Maximize Cardiovascular Knowledge Outcome: Goal Ongoing * Case Mgmt DC Plan - Jeannine Montesinos - 12/13/2020 1:08 PM CDT Case Management Progress Note NAME:Carli Koroma :1944 AGE: 75 y.o. ADMISSION DATE: 12/07/2020 DAYS ADMITTED: LOS: 6 days Todays Date: 12/13/2020 Plan Pending dental clearance (ordered placed), panorex complete. Continue heparin d rip. Finishing viability study today. Will need a repeat echo and a balloon pump before surgery (pending results of viability study). Interventions Support Info or Referral Discharge Planning EMR and POC reviewed DC needs TBD pending post op progression CM team to continue to follow and assist w needs as they arise Medication Needs Financial Legal Other Disposition Expected Discharge Date 12/20/2020 2:00 PM Transportation Does the patient need discharge transport arranged?: No Transportation Name, Phone and Availability #1: Patient's t [facility] Does the patient use Medicaid Transportation?: No Discharge Disposition Selected Continued Care - Admitted Since 12/07/2020 No services have been selected for the patient. Jeannine BUTLER, laborer hide house Nurse Air Pollution Specialist Inpatient Cardiothoracic Surgery * Care Plan - Luanne Almeida RN - 12/12/2020 9:09 AM CDT Problem: Discharge Planning Goal: Participation in plan of care Outcome: Goal Ongoing Goal: Knowledge regarding plan of care Outcome: Goal Ongoing Goal: Prepared for discharge Outcome: Goal Ongoing Problem: High Fall Risk Goal: High Fall Risk Outcome: Goal Ongoing Problem: Mobility/Activity Intolerance Goal: Maximize functional ADL's and mobility outcomes Outcome: Goal Ongoing * Case Mgmt DC Plan - Per Sutherland RN - 12/10/2020 2:58 PM CDT Case Management Admission Assessment NAME:Carli Koroma : [birth year] AGE: 75 y.o. ADMISSION DATE: 12/07/2020 DAYS ADMITTED: LOS: 3 days Todays Date: 12/10/2020 Source of Information: Patient and EMR Plan Plan: Case Management Assessment, Assist PRN with SW/NCM Services Patient admitted for NSTEMI on 12/07. Receiving workup currently for potential CAB G. CM met with pt for assessment on this date. Provided contact information and explanation of SW/NCM roles. Reviewed [facility], Preparing for Discha rge, and Preferred Provider Network hand-outs. Provided opportunity for questio ns and discussion. Pt/family encouraged to contact Case Management team with que stions and concerns during hospitalization and until patient is able to transiti on back to the patient's primary care physician. CTS CM team to continue to follow patient's POC via EMR and primary team hudd le; will assist with discharge planning needs as indicated. Patient Address/Phone [address] [place] [address] (home) Emergency Contact Extended Emergency Contact Information Primary Emergency Contact: Villalba Sandra Mobile Relation: Daughter Preferred language: SAMOAN Leaf Tinner needed? No Secondary Emergency Contact: Oscar Koroma Mobile Relation: Spouse Preferred language: SAMOAN Leaf Tinner needed? No Healthcare Directive Healthcare Directive: No, patient does not have a healthcare directive Would patient like to fill out a (a new) Healthcare Directive?: Yes, referral to Social Work Psych Advance Directive (Psych unit only): No, patient does not have a Psych Adv ance Directive Transportation Does the patient need discharge transport arranged?: No Transportation Name, Phone and Availability #1: Patient's dgt Sandra Does the patient use Medicaid Transportation?: No Expected Discharge Date 12/16/2020 2:00 PM Expected discharge date pending patient's medical stability; awaiting CABG w/ u. Living Situation Prior to Admission Living Arrangements Type of Residence: Home, independent Living Arrangements: Spouse/significant other(Lives with spouse Oscar) Bathroom Shower / Tub: Tub/Shower Unit How many levels in the residence?: 1 Can patient live on one level if needed?: Yes Does residence have entry and/or side stairs?: Yes(3-5 steps) Assistance needed prior to admit or anticipated on discharge: No Who provides assistance or could if needed?: Patient's available; [facility] also available to assist. Are they in good health?: Yes Can support system provide 24/7 care if needed?: Maybe Patient lives in a single story house and reports that prior to starting to f eel bad enough to be seen by her doctor (last few weeks), she was independent wi th all ADLs. 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 Patient reports having [facility] hospital family members available to assist post discharge. 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 Current Therapy recommendations: PT: home; independent OT: signed off; no needs Cognitive Abilities Cognitive Abilities: Alert and Oriented, Participates in decision making, Recogn izes impact of health condition on lifestyle, Engages in problem solving and kristin nning Financial Resources Coverage Primary Insurance: Medicare(Part A & B) Secondary Insurance: Medicare Supplement([employer]) Additional Coverage: RX(Part D through [employer]) [facility] Payor: MEDICARE / Plan: MEDICARE PART A AND B / Product Type: Medicare / Source of Income Source Of Income: Other half-way income, SSI Financial Assistance Needed? Denies need for financial assistance including Rx coverage Psychosocial Needs Mental Health Mental Health History: No Substance Use History Substance Use History Screen: No Current/Previous Services PCP Jonn Terry, , Patient reports last visit was few months ago Litigation Claim Representative: Dr. Emily Srinivasan-- [place], [place] Pharmacy [facility] [address] [place] [address] [facility] [id number] Durable Medical Equipment Durable Medical Equipment at home: None Home Health Receiving home health: No Hemodialysis or Peritoneal Dialysis Undergoing hemodialysis or peritoneal dialysis: No Tube/Enteral Feeds Receive tube/enteral feeds: No Infusion Receive infusions: No Private Duty Private duty help used: No Home and Community Based Services Home and community based services: No Chris White Chris White: N/A Hospice Hospice: No Outpatient Therapy PT: No OT: No LIME SPREADER: No Custodial Facility/Usp SNF: No NH: No Inpatient Rehab IPR: No Long-Term Acute Care Hospital LTACH: No Acute Hospital Stay Acute Hospital Stay: In the past(previous hospitalizations for gallbladder surge ry, having children) Was patient's stay within the last 30 days?: No Anticipated CM Needs: Too early to be determined-- pending CABG Per BUTLER, ACM-RN Nurse Air Pollution Specialist- [facility] [phone]; Available on Voalte Pager: * [phone] * Care Plan - Saroj Ramos RN - 12/09/2020 2:14 AM CDT Problem: Discharge Planning Goal: Participation in plan of care Outcome: Goal Ongoing Goal: Knowledge regarding plan of care Outcome: Goal Ongoing Goal: Prepared for discharge Outcome: Goal Ongoing Problem: Infection, Risk of, Urinary Catheter-Associated Urinary Tract Infection Goal: Absence of urinary catheter-associated infection Outcome: Goal Achieved Problem: High Fall Risk Goal: High Fall Risk Outcome: Goal Ongoing Problem: Mobility/Activity Intolerance Goal: Maximize functional ADL's and mobility outcomes Outcome: Goal Ongoing * Care Plan - Christina Plummer RN - 12/08/2020 1:48 AM CDT Problem: Discharge Planning Goal: Participation in plan of care Outcome: Goal Ongoing Flowsheets (Taken 12/08/2020 0147) Participation in Plan of Care: Involve patient/caregiver in care planning decisi on making Goal: Knowledge regarding plan of care Outcome: Goal Ongoing Flowsheets (Taken 12/08/2020 0147) Knowledge regarding plan of care: Provide plan of care education Provide procedural and treatment education Provide medication management education Note: Discussed plan of care for the night with pt and family Problem: Infection, Risk of, Urinary Catheter-Associated Urinary Tract Infection Goal: Absence of urinary catheter-associated infection Outcome: Goal Ongoing Flowsheets (Taken 12/08/2020 0147) Absence of urinary catheter-associated infections: Manage urinary catheter Assess for signs and sypmtoms of catheter-associated urinary tract infection Problem: High Fall Risk Goal: High Fall Risk Outcome: Goal Ongoing Flowsheets (Taken 12/08/2020 0147) High Fall Risk: All patients will receive: High fall risk sign, yellow wristband, yellow socks, gait belt, and shower shoes Stay with the patient while toileting/showering Remove excess equipment/supplies Educate patient to use call-light if tethered Maximize bed functionality (optimize bed height, firm/flat surface) * Care Plan - Malia Jonas RN - 12/07/2020 4:39 PM CDT Problem: Discharge Planning Goal: Participation in plan of care Outcome: Goal Ongoing Flowsheets (Taken 12/07/2020 1638) Participation in Plan of Care: Involve patient/caregiver in care planning decisi on making Goal: Knowledge regarding plan of care Outcome: Goal Ongoing Flowsheets (Taken 12/07/2020 1638) Knowledge regarding plan of care: Provide plan of care education Provide admission education to parent/caregiver Provide procedural and treatment education Provide fall prevention education Provide infection prevention education Provide medication management education Goal: Prepared for discharge Outcome: Goal Ongoing Flowsheets (Taken 12/07/2020 1638) Prepared for discharge: Complete ADL ability assessment Provide safe use medical equipment education Problem: Infection, Risk of, Urinary Catheter-Associated Urinary Tract Infection Goal: Absence of urinary catheter-associated infection Outcome: Goal Ongoing Flowsheets (Taken 12/07/2020 1638) Absence of urinary catheter-associated infections: Manage urinary catheter Assess for signs and sypmtoms of catheter-associated urinary tract infection Provide patient/family education on CAUTI prevention Problem: High Fall Risk Goal: High Fall Risk Outcome: Goal Ongoing Flowsheets (Taken 12/07/2020 1638) High Fall Risk: All patients will receive: High fall risk sign, yellow wristband, yellow socks, gait belt, and shower shoes Engage bed alarm - middle setting Engage chair alarm Stay with the patient while toileting/showering Move patient near RN station if confused (if possible) Remove excess equipment/supplies Use safe patient handling equipment as appropriate documented in this encounter Plan of Treatment Not on filedocumented as of this encounter Goals Goal Patient Associated Recent Progress Patient-Stat Aut hor Goal Type Problems ed? Recover from illness [facility] No Malia Ureña RN [facility] quality of life [facility] On track (12/07/2020 No Sprinkjohn, 9:49 PM CDT) PREETHI Rivera documented as of this encounter Procedures Comments Procedure Name Priority Date/Time Associated Diag nosis POC GLUCOSE 12/25/2020 7:48 AM CDT CHEST SINGLE VIEW Routine 12/25/2020 6:35 AM CDT HC CBC,AUTOMATED Routine 12/25/2020 5:58 AM CDT HC MAGNESIUM Routine 12/25/2020 5:58 AM CDT HC BASIC METABOLIC PANEL Routine 12/25/2020 5:58 AM CDT POC GLUCOSE 12/24/2020 10:25 PM CDT POC GLUCOSE 12/24/2020 5:18 PM CDT POC GLUCOSE 12/24/2020 11:22 AM CDT POC GLUCOSE 12/24/2020 7:38 AM CDT CHEST SINGLE VIEW Routine 12/24/2020 6:29 AM CDT HC CBC,AUTOMATED Routine 12/24/2020 4:28 AM CDT HC MAGNESIUM Routine 12/24/2020 4:28 AM CDT HC BASIC METABOLIC PANEL Routine 12/24/2020 4:28 AM CDT POC GLUCOSE 12/23/2020 10:57 PM CDT POC GLUCOSE 12/23/2020 5:25 PM CDT POC GLUCOSE 12/23/2020 12:02 PM CDT POC GLUCOSE 12/23/2020 7:50 AM CDT CHEST SINGLE VIEW Routine 12/23/2020 6:12 AM CDT HC CBC,AUTOMATED Routine 12/23/2020 4:49 AM CDT HC MAGNESIUM Routine 12/23/2020 4:49 AM CDT HC BASIC METABOLIC PANEL Routine 12/23/2020 4:49 AM CDT POC GLUCOSE 12/22/2020 9:49 PM CDT POC GLUCOSE 12/22/2020 5:26 PM CDT POC GLUCOSE 12/22/2020 11:40 AM CDT POC GLUCOSE 12/22/2020 8:00 AM CDT CHEST 2 VIEWS Routine 12/22/2020 6:27 AM CDT HC CBC,AUTOMATED Routine 12/22/2020 4:57 AM CDT HC MAGNESIUM Routine 12/22/2020 4:57 AM CDT HC BASIC METABOLIC PANEL Routine 12/22/2020 4:57 AM CDT POC GLUCOSE 12/21/2020 10:29 PM CDT POC GLUCOSE 12/21/2020 5:38 PM CDT POC GLUCOSE 12/21/2020 11:27 AM CDT POC GLUCOSE 12/21/2020 7:34 AM CDT CHEST SINGLE VIEW STAT 12/21/2020 6:30 AM CDT HC CBC,AUTOMATED Routine 12/21/2020 4:40 AM CDT HC MAGNESIUM Routine 12/21/2020 4:40 AM CDT HC BASIC METABOLIC PANEL Routine 12/21/2020 4:40 AM CDT POC GLUCOSE 12/20/2020 10:13 PM CDT POC GLUCOSE 12/20/2020 4:59 PM CDT LIMITED ECHO W/ CONTRAST MARLENA 12/20/2020 AND DOPPLER 2:00 PM CDT POC GLUCOSE 12/20/2020 11:04 AM CDT POC GLUCOSE 12/20/2020 8:12 AM CDT HC CBC,AUTOMATED Routine 12/20/2020 5:05 AM CDT HC MAGNESIUM Routine 12/20/2020 5:05 AM CDT HC BASIC METABOLIC PANEL Routine 12/20/2020 5:05 AM CDT POC GLUCOSE 12/19/2020 9:50 PM CDT POC GLUCOSE 12/19/2020 5:14 PM CDT CHEST SINGLE VIEW STAT 12/19/2020 3:37 PM CDT POC GLUCOSE 12/19/2020 1:00 PM CDT POC GLUCOSE 12/19/2020 7:36 AM CDT CHEST SINGLE VIEW Routine 12/19/2020 4:37 AM CDT HC CBC,AUTOMATED Routine 12/19/2020 3:03 AM CDT HC MAGNESIUM Routine 12/19/2020 3:03 AM CDT HC BASIC METABOLIC PANEL Routine 12/19/2020 3:03 AM CDT POC GLUCOSE [...] STAT 12/18/2020 SAT) 3:18 AM CDT HC CBC,AUTOMATED Routine 12/18/2020 2:56 AM CDT HC MAGNESIUM Routine 12/18/2020 2:56 AM CDT HC BASIC METABOLIC PANEL Routine 12/18/2020 2:56 AM CDT POC GLUCOSE [...] (O2 Routine 12/17/2020 SAT) 3:50 PM CDT CBC STAT 12/17/2020 3:50 PM CDT HC BLOOD STAT 12/17/2020 GASES;(CALCULATED 02) 3:50 PM CDT BASIC METABOLIC PANEL STAT 12/17/2020 3:50 PM CDT POC GLUCOSE [...] Routine 12/17/2020 SAT) 2:14 AM CDT HC CBC,AUTOMATED Routine 12/17/2020 2:14 AM CDT HC MAGNESIUM Routine 12/17/2020 2:14 AM CDT HC BLOOD Routine 12/17/2020 GASES;(CALCULATED 02) 2:14 AM CDT HC BASIC METABOLIC PANEL Routine 12/17/2020 2:14 AM CDT POC GLUCOSE [...] POC GLUCOSE 12/16/2020 1:13 PM CDT HC BLOOD GAS, POC 12/16/2020 12:42 PM CDT HC SODIUM, POC 12/16/2020 12:42 PM CDT HC POTASSIUM, POC 12/16/2020 12:42 PM CDT HC HEMATOCRIT POC 12/16/2020 12:42 PM CDT POC GLUCOSE 12/16/2020 12:37 PM CDT LINE PLCMT 1V CXR STAT 12/16/2020 12:30 PM CDT HC PTT(APTT) STAT 12/16/2020 12:30 PM CDT HC PT(INR) STAT 12/16/2020 12:30 PM CDT CBC STAT 12/16/2020 12:30 PM CDT HC MAGNESIUM STAT 12/16/2020 12:30 PM CDT HC BASIC METABOLIC PANEL STAT 12/16/2020 12:30 PM CDT ECG 12-LEAD STAT 12/16/2020 12:21 PM CDT ACTIVATED CLOTTING TIME 12/16/2020 HMS 11:17 AM CDT HC BLOOD GAS, POC 12/16/2020 11:17 AM CDT HC SODIUM, POC 12/16/2020 11:17 AM CDT HC POTASSIUM, POC 12/16/2020 11:17 AM CDT HC IONIZED CA, POC 12/16/2020 11:17 AM CDT HC HEMATOCRIT POC 12/16/2020 11:17 AM CDT POC GLUCOSE 12/16/2020 11:15 AM CDT HC BLOOD GAS, POC 12/16/2020 10:51 AM CDT HC SODIUM, POC 12/16/2020 10:51 AM CDT HC POTASSIUM, POC 12/16/2020 10:51 AM CDT HC IONIZED CA, POC 12/16/2020 10:51 AM CDT HC HEMATOCRIT POC 12/16/2020 10:51 AM CDT ACTIVATED CLOTTING TIME 12/16/2020 HMS 10:50 AM CDT POC GLUCOSE 12/16/2020 10:48 AM CDT HC BLOOD GAS, POC 12/16/2020 10:17 AM CDT HC SODIUM, POC 12/16/2020 10:17 AM CDT HC POTASSIUM, POC 12/16/2020 10:17 AM CDT HC IONIZED CA, POC 12/16/2020 10:17 AM CDT HC HEMATOCRIT POC 12/16/2020 10:17 AM CDT ACTIVATED CLOTTING TIME 12/16/2020 HMS 10:16 AM CDT POC GLUCOSE 12/16/2020 10:15 AM CDT ACTIVATED CLOTTING TIME 12/16/2020 HMS 9:28 AM CDT POC GLUCOSE 12/16/2020 9:26 AM CDT HC BLOOD GAS, POC 12/16/2020 8:07 AM CDT HC SODIUM, POC 12/16/2020 8:07 AM CDT HC POTASSIUM, POC 12/16/2020 8:07 AM CDT HC IONIZED CA, POC 12/16/2020 8:07 AM CDT HC HEMATOCRIT POC 12/16/2020 8:07 AM CDT BASELINE ACTIVATED 12/16/2020 CLOTTING TIME HMS 8:06 AM CDT POC GLUCOSE 12/16/2020 8:04 AM CDT CORONARY ARTERY BYPASS 12/16/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 - 3 7:21 AM CDT of [place] art nanci 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) POC GLUCOSE 12/16/2020 6:34 AM CDT HC PTT(APTT) Routine 12/16/2020 5:33 AM CDT HC PT(INR) Routine 12/16/2020 5:33 AM CDT HC CBC W/ AUTOMATED DIFF Routine 12/16/2020 5:33 AM CDT HC COMPREHENSIVE Routine 12/16/2020 METABOLIC PANEL 5:33 AM CDT HC PTT(APTT) STAT 12/15/2020 6:47 PM CDT POC GLUCOSE 12/15/2020 5:05 PM CDT HC PTT(APTT) STAT 12/15/2020 1:26 PM CDT POC GLUCOSE 12/15/2020 10:[address] CHEST WO CONTRAST Routine 12/15/2020 10:31 AM CDT POC GLUCOSE 12/15/2020 8:00 AM CDT HC PTT(APTT) Routine 12/15/2020 4:39 AM CDT HC PT(INR) Routine 12/15/2020 4:39 AM CDT HC CBC W/ AUTOMATED DIFF Routine 12/15/2020 4:39 AM CDT HC ABO GROUP Routine 12/15/2020 4:39 AM CDT HC COMPREHENSIVE Routine 12/15/2020 METABOLIC PANEL 4:39 AM CDT ECG-SCAN 12/15/2020 12:00 AM [...] PT(INR) Routine 12/14/2020 4:12 AM CDT HC CBC W/ AUTOMATED DIFF Routine 12/14/2020 4:12 AM CDT HC COMPREHENSIVE Routine 12/14/2020 METABOLIC PANEL 4:12 AM CDT POC GLUCOSE 12/13/2020 9:37 PM CDT POC GLUCOSE 12/13/2020 5:14 PM CDT 2D ECHO ONLY W/ CONTRAST Routine 12/13/2020 4:49 PM CDT POC GLUCOSE 12/13/2020 11:47 AM CDT VIABILITY STUDY (REST AND Routine 12/13/2020 4 HOUR DELAY) MPI REST 8:51 AM CDT TEST POC GLUCOSE 12/13/2020 7:11 AM CDT HC PTT(APTT) Routine 12/13/2020 4:06 AM CDT HC PT(INR) Routine 12/13/2020 4:06 AM CDT HC CBC,AUTOMATED 12/13/2020 4:06 AM CDT HC COMPREHENSIVE 12/13/2020 METABOLIC PANEL 4:06 AM CDT POC GLUCOSE 12/12/2020 9:48 PM CDT POC GLUCOSE 12/12/2020 5:09 PM CDT POC GLUCOSE 12/12/2020 12:30 PM CDT POC GLUCOSE 12/12/2020 7:32 AM CDT HC TROPONIN-I Routine 12/12/2020 4:00 AM CDT HC PTT(APTT) Routine 12/12/2020 4:00 AM CDT HC PT(INR) Routine 12/12/2020 4:00 AM CDT HC CBC W/ AUTOMATED DIFF Routine 12/12/2020 4:00 AM CDT HC COMPREHENSIVE Routine 12/12/2020 METABOLIC PANEL 4:00 AM CDT POC GLUCOSE 12/11/2020 9:47 PM CDT HC PTT(APTT) STAT 12/11/2020 8:13 PM CDT POC GLUCOSE 12/11/2020 5:09 PM CDT ECG 12-LEAD Routine 12/11/2020 12:46 PM CDT HC PTT(APTT) STAT 12/11/2020 12:30 PM CDT HC B-TYPE NATRIURETIC STAT 12/11/2020 PEPTIDE 12:30 PM CDT POC GLUCOSE 12/11/2020 11:20 AM CDT POC GLUCOSE 12/11/2020 7:36 AM CDT HC PTT(APTT) Routine 12/11/2020 4:10 AM CDT HC PT(INR) Routine 12/11/2020 4:10 AM CDT HC CBC W/ AUTOMATED DIFF Routine 12/11/2020 4:10 AM CDT HC COMPREHENSIVE Routine 12/11/2020 METABOLIC PANEL 4:10 AM CDT POC GLUCOSE 12/10/2020 9:50 PM CDT POC GLUCOSE 12/10/2020 5:01 PM CDT PV CAROTID ARTERY DUPLEX Routine 12/10/2020 SCAN 11:53 AM CDT POC GLUCOSE 12/10/2020 11:44 AM CDT VENOUS LE COMPLETE Routine 12/10/2020 11:39 AM CDT 2D + DOPPLER ECHO W/ STAT 12/10/2020 CONTRAST 10:19 AM CDT POC GLUCOSE 12/10/2020 7:22 AM CDT HC PTT(APTT) Routine 12/10/2020 4:06 AM CDT HC PT(INR) Routine 12/10/2020 4:06 AM CDT HC CBC W/ AUTOMATED DIFF Routine 12/10/2020 4:06 AM CDT HC COMPREHENSIVE Routine 12/10/2020 METABOLIC PANEL 4:06 AM CDT POC GLUCOSE 12/09/2020 9:49 PM CDT POC GLUCOSE 12/09/2020 5:05 PM CDT POC GLUCOSE 12/09/2020 11:45 AM CDT POC GLUCOSE 12/09/2020 8:02 AM CDT HC TROPONIN-I Routine 12/09/2020 4:41 AM CDT HC PTT(APTT) Routine 12/09/2020 4:41 AM CDT HC PT(INR) Routine 12/09/2020 4:41 AM CDT HC CBC W/ AUTOMATED DIFF Routine 12/09/2020 4:41 AM CDT HC COMPREHENSIVE Routine 12/09/2020 METABOLIC PANEL 4:41 AM CDT POC GLUCOSE 12/08/2020 10:20 PM CDT POC GLUCOSE 12/08/2020 5:52 PM CDT TROPONIN-I STAT 12/08/2020 3:36 AM CDT HC PTT(APTT) Routine 12/08/2020 3:36 AM CDT HC PT(INR) Routine 12/08/2020 3:36 AM CDT HC CBC W/ AUTOMATED DIFF Routine 12/08/2020 3:36 AM CDT HC Routine 12/08/2020 LIPID-5:CHOL/TRG/HDL/LDL+ 3:36 AM CDT VLDL HC COMPREHENSIVE Routine 12/08/2020 METABOLIC PANEL 3:36 AM CDT HC TROPONIN-I STAT 12/08/2020 12:01 AM CDT PANOREX EXAM Routine 12/07/2020 10:46 PM CDT HC PTT(APTT) STAT 12/07/2020 10:23 PM CDT TROPONIN-I STAT 12/07/2020 8:40 PM CDT BEDSIDE PFT Routine 12/07/2020 7:11 PM CDT CHEST SINGLE VIEW STAT 12/07/2020 3:55 PM CDT HC BLOOD TYPING, ABO Routine 12/07/2020 CONFIRM 91 3:44 PM CDT POC GLUCOSE 12/07/2020 3:25 PM CDT HC TSH SCREEN 12/07/2020 3:19 PM CDT URINALYSIS, MICROSCOPIC 12/07/2020 3:19 PM CDT HC URINALYSIS, AUTO W 12/07/2020 MICRO 3:19 PM CDT HC LACTIC ACID - BG 12/07/2020 SYRINGE 3:19 PM CDT HC TROPONIN-I 12/07/2020 3:19 PM CDT HC PTT(APTT) 12/07/2020 3:19 PM CDT HC PT(INR) 12/07/2020 3:19 PM CDT HC CBC W/ AUTOMATED DIFF 12/07/2020 3:19 PM CDT TYPE & CROSSMATCH STAT 12/07/2020 3:19 PM CDT HC HEMOGLOBIN A1C 12/07/2020 3:19 PM CDT HC COMPREHENSIVE 12/07/2020 METABOLIC PANEL 3:19 PM CDT ECG 12-LEAD STAT 12/07/2020 [...] AM CDT ECG-SCAN 12/07/2020 12:00 AM CDT ECG-SCAN 12/07/2020 12:00 AM CDT ECG-SCAN 12/07/2020 12:00 AM CDT ECG-SCAN 12/07/2020 12:00 AM CDT PROCEDURE RECORD-SCAN 12/07/2020 12:00 AM CDT PROCEDURE RECORD-SCAN 12/07/2020 12:00 AM CDT documented in this encounter [...] P narendra Number [facility] RESULTS * POC GLUCOSE (12/25/2020 7:48 AM CDT) Glucose, POC 130 (H) 70 - 100 MG/DL [facility] Specimen Performing Organization Address City/State/ZIP Code P narendra Number [facility] [address] [place] [address] * CHEST SINGLE VIEW (12/25/2020 6:35 AM CDT) Specimen Impressions Performed At Persistent small left [...] on 12/25/2020 7:30 AM. Performing Organization Address City/[facility] Code P narendra Number [facility] RESULTS * MAGNESIUM (12/25/2020 5:58 AM CDT) Magnesium 2.0 1.6 - 2.6 mg/dL [facility] Specimen Performing Organization Address [facility] P narendra Number [facility] [address] [place] [address] * CBC (12/25/2020 5:58 AM CDT) White Blood 8.9 4.5 - 11.0 K/UL [...] [facility] Specimen Performing Organization Address [facility] P narendra Number [facility] [address] [place] [address] * BASIC METABOLIC PANEL (12/25/2020 5:58 AM CDT) Sodium 139 137 - 147 MMOL/L KU [...] MAIN LAB eGFR Non >60 >60 mL/min MAIN LAB Comment: [place] The eGFR is not validated f or use in drug dosing adjustments. Continue to use estimated creatinine clearance per dosing reference text. Please contact the Clinical Pharmacist for questions. eGFR >60 >60 mL/min MAIN LAB [place] Comment: The eGFR is not validated for use in drug dosing adjustments. Continue to use estimated creatinine clearance per dosing reference text. Please contact the Clinical Pharmacist for questions. Specimen Performing Organization Address City/[facility]/ZIP Code P narendra Number MAIN LAB [address] [place] [id number] * POC GLUCOSE (12/24/2020 10:25 PM CDT) Glucose, POC 157 (H) 70 - 100 MG/DL MAIN LAB Specimen Performing Organization Address [facility] P narendra Number MAIN LAB [address] [place] [address] * POC GLUCOSE (12/24/2020 5:18 PM CDT) Glucose, POC 121 (H) 70 - 100 MG/DL MAIN LAB Specimen Performing Organization Address [facility] P narendra Number MAIN LAB [address] [place] [address] * POC GLUCOSE (12/24/2020 11:22 AM CDT) Glucose, POC 163 (H) 70 - 100 MG/DL MAIN LAB Specimen Performing Organization Address [facility] P narendra Number MAIN LAB [address] [place] [address] * POC GLUCOSE (12/24/2020 7:38 AM CDT) Glucose, POC 140 (H) 70 - 100 MG/DL MAIN LAB Specimen Performing Organization Address [facility] P narendra Number MAIN LAB [address] [place] [address] * CHEST SINGLE VIEW (12/24/2020 6:29 AM CDT) Specimen Impressions Performed At 1. Persistent low lung volumes with sma ll left pleural effusion and left greater [facility] RESULTS than right bibasilar atelectasis. 2. Unchanged mild cardiomegaly. Approved by Ron Singh MD on 12/24/2020 11:42 AM By my electronic signature, I attest th at I have personally reviewed the images for this examination and formulated the interpretations and opinions expressed in this report Finalized by Poli Wesley M.D. on 2020 11:53 AM. Dictated by Ron Singh MD on 12/24/2020 10:31 AM. Narrative Performed At CHEST SINGLE VIEW [facility] RESULTS INDICATION: post-op atelectasis, effusi on. COMPARISON STUDY: Chest radiograph 12/23 FINDINGS: Lungs/Pleura: Persistent low lung volum es with small left pleural effusion and left greater than right bibasilar atele ctasis. No pneumothorax. Heart and Mediastinum: Cardiac silhouet te remains mildly enlarged. Aortic arch calcifications and prior median sternot kiera. Procedure Note Interface, Radiant Results - 12/24/2020 11:56 AM CDT CHEST SINGLE VIEW INDICATION: post-op atelectasis, effusion. COMPARISON STUDY: Chest radiograph 12/23/2020 FINDINGS: Lungs/Pleura: Persistent low lung volumes with small left pleural effusion and left greater than right bibasilar atelectasis. No pneumothorax. Heart and Mediastinum: Cardiac silhouette remains mildly enlarged. Aortic arch calcifications and prior median sternotomy. IMPRESSION 1. Persistent low lung volumes with smal l left pleural effusion and left greater than right bibasilar atelectasis. 2. Unchanged mild cardiomegaly. Approved by Ron Singh MD on 12/24/2020 11:42 AM By my electronic signature, I attest that I have personally reviewed the images for this examination and formulated the interpretations and opinions expressed in this report Finalized by Poli Wesley M.D. on 12/24/2020 11:53 AM. Dictated by Ron Singh MD on 12/24/2020 10:31 AM. Performing Organization Address City/State/ZIP Code P narendra Number [facility] RESULTS * MAGNESIUM (12/24/2020 4:28 AM CDT) Magnesium 2.1 1.6 - 2.6 mg/dL [facility] Specimen Performing Organization Address City/State/ZIP Code P narendra Number [facility] [address] [place] [address] * CBC (12/24/2020 4:28 AM CDT) Pathologist [facility] White Blood 9.5 4.5 - 11.0 K/UL [facility] Cells RBC 3.27 (L) 4.0 - 5.0 M/UL [facility] Hemoglobin 10.4 (L) 12.0 - 15.0 GM/DL [facility] Hematocrit 31.0 (L) 36 - 45 % [facility] MCV 94.8 80 - 100 FL [facility] MCH 31.9 26 - 34 PG [facility] MCHC 33.6 32.0 - 36.0 G/DL [facility] RDW 15.9 (H) 11 - 15 % [facility] Platelet Count 324 150 - 400 K/UL [facility] MPV 7.1 7 - 11 FL MAIN LAB Specimen Performing Organization Address City/[facility]/ZIP Code P narendra Number MAIN LAB [address] [place] [address] * BASIC METABOLIC PANEL (12/24/2020 4:28 AM CDT) Pathologist [facility] Sodium 137 137 - 147 MMOL/L [facility] Potassium 4.6 3.5 - 5.1 MMOL/L [facility] Chloride 102 98 - 110 MMOL/L [facility] CO2 26 21 - 30 MMOL/L [facility] Anion Gap 9 3 - 12 [facility] Glucose 142 (H) 70 - 100 MG/DL [facility] Blood Urea 13 7 - 25 MG/DL [facility] Nitrogen Creatinine 0.81 0.4 - 1.00 MG/DL [facility] Calcium 9.6 8.5 - 10.6 MG/DL [facility] eGFR Non >60 >60 mL/min [facility] Comment: [place] The eGFR is not validated f or use in drug dosing adjustments. Continue to use estimated creatinine clearance per dosing reference text. Please contact the Clinical Pharmacist for questions. eGFR >60 >60 mL/min [facility] [place] Comment: The eGFR is not validated for use in drug dosing adjustments. Continue to use estimated creatinine clearance per dosing reference text. Please contact the Clinical Pharmacist for questions. Specimen Performing Organization Address City/[facility]/ZIP [facility] P narendra Number MAIN LAB [address] [place] [address] * POC GLUCOSE (12/23/2020 10:57 PM CDT) Pathologist [facility] Glucose, POC 130 (H) 70 - 100 MG/DL [facility] Specimen Performing Organization Address [facility] Code P narendra Number MAIN LAB [address] [place] [address] * POC GLUCOSE (12/23/2020 5:25 PM CDT) Glucose, POC 158 (H) 70 - 100 MG/DL [facility] Specimen Performing Organization Address [facility] P narendra Number MAIN LAB [address] [place] [address] * POC GLUCOSE (12/23/2020 12:02 PM CDT) Glucose, POC 143 (H) 70 - 100 MG/DL MAIN LAB Specimen Performing Organization Address [facility] P narendra Number MAIN LAB [address] [place] [address] * POC GLUCOSE (12/23/2020 7:50 AM CDT) Glucose, POC 131 (H) 70 - 100 MG/DL MAIN LAB Specimen Performing Organization Address [facility] P narendra Number MAIN LAB [address] [place] [address] * CHEST SINGLE VIEW (12/23/2020 6:12 AM CDT) Specimen Impressions Performed At 1. Persistent mild cardiomegaly with mild vascular congestion, resolving edema [facility] RESULTS and small bilateral pleural effusions. 2. Low lung volumes with patchy bibas ilar opacities, likely atelectasis. By my electronic signature, I attest th at I have personally reviewed the images for this examination and formulated the interpretations and opinions expressed in this report Finalized by Poli Wesley M.D. on 2020 9:07 AM. Dictated by Shagufta Reynaga MD on 12/23/2020 8:01 AM. Narrative Performed At CHEST SINGLE VIEW [facility] RESULTS INDICATION: Post-op atelectasis, effusi on. COMPARISON STUDY: Chest radiograph from one day prior 12/22/2020. FINDINGS: Lungs/Pleura: Low lung volumes. Apparen t slight increase in size of small bilateral pleural effusions likely due to differences in patient positioning. Persistent findings of mild pulmonary e tato. Patchy bibasilar opacities, likely atelectasis. No pneumothorax. Heart and Mediastinum: Prior median meliton rnotomy and CABG. Persistent mild cardiomegaly. Procedure Note Interface, Radiant Results - 12/23/2020 9:10 AM CDT CHEST SINGLE VIEW INDICATION: Post-op atelectasis, effusion. COMPARISON STUDY: Chest radiograph from one day prior 12/22/2020. FINDINGS: Lungs/Pleura: Low lung volumes. Apparent slight increase in size of small bilateral pleural effusions likely due to differences in patient positioning. Persistent findings of mild pulmonary edema. Patchy bibasilar opacities, likely atelectasis. No pneumothorax. Heart and Mediastinum: Prior median sternotomy and CABG. Persistent mild cardiomegaly. IMPRESSION 1. Persistent mild cardiomegaly with mi ld vascular congestion, resolving edema and small bilateral pleural effusions. 2. Low lung volumes with patchy bibasil ar opacities, likely atelectasis. By my electronic signature, I attest that I have personally reviewed the images for this examination and formulated the interpretations and opinions expressed in this report Finalized by Poli Wesley M.D. on 12/23/2020 9:07 AM. Dictated by Shagufta Reynaga MD on 12/23/2020 8:01 AM. Performing Organization Address City/State/ZIP Code P narendra Number [facility] RESULTS * MAGNESIUM (12/23/2020 4:49 AM CDT) Pathologist [facility] Magnesium 1.9 1.6 - 2.6 mg/dL [facility] Specimen Performing Organization Address City/State/ZIP Code P narendra Number [facility] [address] [place] [address] * CBC (12/23/2020 4:49 AM CDT) White Blood 8.2 4.5 - 11.0 K/UL [facility] Cells RBC 3.21 (L) 4.0 - 5.0 M/UL [facility] Hemoglobin 10.1 (L) 12.0 - 15.0 GM/DL [facility] Hematocrit 29.8 (L) 36 - 45 % [facility] MCV 92.8 80 - 100 FL [facility] MCH 31.4 26 - 34 PG [facility] MCHC 33.9 32.0 - 36.0 G/DL [facility] RDW 15.0 11 - 15 % [facility] Platelet Count 347 150 - 400 K/UL [facility] MPV 7.3 7 - 11 FL [facility] Specimen Performing Organization Address City/[facility]/ZIP Code P narendra Number [facility] [address] [place] [address] * BASIC METABOLIC PANEL (12/23/2020 4:49 AM CDT) Sodium 139 137 - 147 MMOL/L [facility] Potassium 4.2 3.5 - 5.1 MMOL/L [facility] Chloride 103 98 - 110 MMOL/L [facility] CO2 29 21 - 30 MMOL/L [facility] Anion Gap 7 3 - 12 [facility] Glucose 133 (H) 70 - 100 MG/DL [facility] Blood Urea 15 7 - 25 MG/DL [facility] Nitrogen Creatinine 0.69 0.4 - 1.00 MG/DL [facility] Calcium 8.7 8.5 - 10.6 MG/DL [facility] eGFR Non >60 >60 mL/min [facility] Comment: [place] The eGFR is not validated f or use in drug dosing adjustments. Continue to use estimated creatinine clearance per dosing reference text. Please contact the Clinical Pharmacist for questions. eGFR >60 >60 mL/min [facility] [place] Comment: The eGFR is not validated for use in drug dosing adjustments. Continue to use estimated creatinine clearance per dosing reference text. Please contact the Clinical Pharmacist for questions. Specimen Performing Organization Address City/[facility]/ZIP Code P narendra Number [facility] [address] [place] [address] * POC GLUCOSE (12/22/2020 9:49 PM CDT) Glucose, POC 139 (H) 70 - 100 MG/DL [facility] Specimen Performing Organization Address City/[facility]/ZIP Code P narendra Number [facility] [address] [place] [address] * POC GLUCOSE (12/22/2020 5:26 PM CDT) Glucose, POC 146 (H) 70 - 100 MG/DL [facility] Specimen Performing Organization Address City/[facility]/ZIP Code P narendra Number [facility] [address] [place] [address] * POC GLUCOSE (12/22/2020 11:40 AM CDT) Glucose, POC 140 (H) 70 - 100 MG/DL [facility] Specimen Performing Organization Address City/[facility]/ZIP Code P narendra Number MAIN LAB [address] [place] [address] * POC GLUCOSE (12/22/2020 8:00 AM CDT) Glucose, POC 189 (H) 70 - 100 MG/DL MAIN LAB Specimen Performing Organization Address City/[facility]/ZIP Code P narendra Number MAIN LAB [address] [place] [address] * CHEST 2 VIEWS (12/22/2020 6:27 AM CDT) Specimen Impressions Performed At 1. Improvement in pulmonary edema. [facility] RESULTS 2. Small bilateral pleural effusions, l arger on the left, with similar bibasilar opacities, likely atelectasis.. Finalized by CONRAD OROZCO M.D. on 12/22 8:05 AM. Dictated by CONRAD OROZCO M.D. on 12/22/2020 8:03 AM. Narrative Performed At CHEST 2 VIEWS [facility] RAD RESULTS INDICATION: atelectasis. COMPARISON STUDY: 12/21/2020. FINDINGS: Lungs/Pleura: Similar small bilateral p leural effusions, larger on the left. Mild bibasilar opacity.. No pneumothora x.. Heart and Mediastinum: Cardiac silhouet te is partially obscured. Improvement in pulmonary edema. Previous median sterno saumya and CABG.. Skeletal Structures and Soft Tissues: T horacic spondylosis.. Procedure Note Interface, Radiant Results - 12/22/2020 8:08 AM CDT CHEST 2 VIEWS INDICATION: atelectasis. COMPARISON STUDY: 12/21/2020. FINDINGS: Lungs/Pleura: Similar small bilateral pleural effusions, larger on the left. Mild bibasilar opacity.. No pneumothorax.. Heart and Mediastinum: Cardiac silhouette is partially obscured. Improvement in pulmonary edema. Previous median sternotomy and CABG.. Skeletal Structures and Soft Tissues: Thoracic spondylosis.. IMPRESSION 1. Improvement in pulmonary edema. 2. Small bilateral pleural effusions, la rger on the left, with similar bibasilar opacities, likely atelectasis.. Finalized by CONRAD OROZCO M.D. on 12/22/2020 8:05 AM. Dictated by CONRAD OROZCO M.D. on 12/22/2020 8:03 AM. Performing Organization Address City/[facility] Code P narendra Number [facility] RAD RESULTS * MAGNESIUM (12/22/2020 4:57 AM CDT) Magnesium 2.1 1.6 - 2.6 mg/dL [facility] Specimen Performing Organization Address [facility] P narendra Number [facility] [address] [place] [id number] * CBC (12/22/2020 4:57 AM CDT) White Blood 9.9 4.5 - 11.0 K/UL [facility] Cells RBC 3.31 (L) 4.0 - 5.0 M/UL [facility] Hemoglobin 10.6 (L) 12.0 - 15.0 GM/DL [facility] Hematocrit 30.7 (L) 36 - 45 % [facility] MCV 92.8 80 - 100 FL [facility] MCH 32.0 26 - 34 PG [facility] MCHC 34.5 32.0 - 36.0 G/DL [facility] RDW 14.8 11 - 15 % [facility] Platelet Count 369 150 - 400 K/UL [facility] MPV 7.2 7 - 11 FL [facility] Specimen Performing Organization Address [facility] P narendra Number [facility] [address] [place] [address] * BASIC METABOLIC PANEL (12/22/2020 4:57 AM CDT) Sodium 142 137 - 147 MMOL/L [facility] Potassium 4.2 3.5 - 5.1 MMOL/L [facility] Chloride 105 98 - 110 MMOL/L [facility] CO2 26 21 - 30 MMOL/L [facility] Anion Gap 11 3 - 12 [facility] Glucose 145 (H) 70 - 100 MG/DL [facility] Blood Urea 23 7 - 25 MG/DL [facility] Nitrogen Creatinine 0.67 0.4 - 1.00 MG/DL [facility] Calcium 9.0 8.5 - 10.6 MG/DL [facility] eGFR Non >60 >60 mL/min [facility] Comment: [place] The eGFR is not validated f or use in drug dosing adjustments. Continue to use estimated creatinine clearance per dosing reference text. Please contact the Clinical Pharmacist for questions. eGFR >60 >60 mL/min MAIN LAB [place] Comment: The eGFR is not validated for use in drug dosing adjustments. Continue to use estimated creatinine clearance per dosing reference text. Please contact the Clinical Pharmacist for questions. Specimen Performing Organization Address City/[facility]/ZIP Code P narendra Number MAIN LAB [address] [place] [address] * POC GLUCOSE (12/21/2020 10:29 PM CDT) Glucose, POC 162 (H) 70 - 100 MG/DL MAIN LAB Specimen Performing Organization Address [facility] P narendra Number MAIN LAB [address] [place] [address] * POC GLUCOSE (12/21/2020 5:38 PM CDT) Glucose, POC 160 (H) 70 - 100 MG/DL MAIN LAB Specimen Performing Organization Address [facility] [facility] P narendra Number MAIN LAB [address] [place] [address] * POC GLUCOSE (12/21/2020 11:27 AM CDT) Glucose, POC 203 (H) 70 - 100 MG/DL MAIN LAB Specimen Performing Organization Address [facility] P narednra Number MAIN LAB [address] [place] [address] * POC GLUCOSE (12/21/2020 7:34 AM CDT) Glucose, POC 160 (H) 70 - 100 MG/DL MAIN LAB Specimen Performing Organization Address [facility] P narendra Number MAIN LAB [address] [place] [address] * CHEST SINGLE VIEW (12/21/2020 6:30 AM CDT) Specimen Impressions Performed At Persistent mild cardiomegaly and pulmonary edema. KU RAD RESULTS Slight increase in left basilar consoli dation, likely a combination of atelectasis and effusion. Similar small right pleural effusion wi th slight increase in right basilar atelectasis. By my electronic signature, I attest th at I have personally reviewed the images for this examination and formulated the interpretations and opinions expressed in this report Finalized by CONRAD OROZCO M.D. on 12/21 9:52 AM. Dictated by Brittany Brooks M.D. on 12/21/2020 9:43 AM. Narrative Performed At CHEST SINGLE VIEW KU RAD RESULTS INDICATION: post-op atelectasis, effusi on COMPARISON STUDY: 12/19/2020. FINDINGS: Life Support Devices: Right IJ sheath i s been removed. Lungs and pleura: Mild pulmonary edema. Slight increase in left basilar opacity, likely a combination of atelectasis and effusion. Similar small right pleural effusion with slight increase in adjace nt atelectasis.. No pneumothorax. Heart and Mediastinum: The cardiomedias tinal silhouette and great vessels are stable. Prior median sternotomy and CAB G. Procedure Note Interface, Radiant Results - 12/21/2020 9:55 AM CDT CHEST SINGLE VIEW INDICATION: post-op atelectasis, effusion COMPARISON STUDY: 12/19/2020. FINDINGS: Life Support Devices: Right IJ sheath is been removed. Lungs and pleura: Mild pulmonary edema. Slight increase in left basilar opacity, likely a combination of atelectasis and effusion. Similar small right pleural effusion with slight increase in adjacent atelectasis.. No pneumothorax. Heart and Mediastinum: The cardiomediastinal silhouette and great vessels are stable. Prior median sternotomy and CABG. IMPRESSION Persistent mild cardiomegaly and pulmonary edema. Slight increase in left basilar consolidation, likely a combination of atelectasis and effusion. Similar small right pleural effusion with slight increase in right basilar atelectasis. By my electronic signature, I attest that I have personally reviewed the images for this examination and formulated the interpretations and opinions expressed in this report Finalized by CONRAD OROZCO M.D. on 12/21/2020 9:52 AM. Dictated by Brittany Brooks M.D. on 12/21/2020 9:43 AM. Performing Organization Address City/State/ZIP Code P narendra Number KU RAD RESULTS * MAGNESIUM (12/21/2020 4:40 AM CDT) Magnesium 2.3 1.6 - 2.6 mg/dL KU MAIN LAB Specimen Performing Organization Address City/State/ZIP Code P narendra Number KU MAIN LAB [address] [place] [address] * CBC (12/21/2020 4:40 AM CDT) White Blood 9.8 4.5 - 11.0 K/UL KU MAIN LAB Cells RBC 2.91 (L) 4.0 - 5.0 M/UL KU MAIN LAB Hemoglobin 9.1 (L) 12.0 - 15.0 GM/DL KU MAIN LAB Hematocrit 26.9 (L) 36 - 45 % KU MAIN LAB MCV 92.6 80 - 100 FL KU MAIN LAB MCH 31.5 26 - 34 PG KU MAIN LAB MCHC 34.0 32.0 - 36.0 G/DL KU MAIN LAB RDW 14.6 11 - 15 % KU MAIN LAB Platelet Count 296 150 - 400 K/UL KU MAIN LAB MPV 7.6 7 - 11 FL KU MAIN LAB Specimen Performing Organization Address [facility] P narendra Number KU MAIN LAB [address] [place] [address] * BASIC METABOLIC PANEL (12/21/2020 4:40 AM CDT) Sodium 140 137 - 147 MMOL/L KU MAIN LAB Potassium 4.3 3.5 - 5.1 MMOL/L KU MAIN LAB Chloride 105 98 - 110 MMOL/L KU MAIN LAB CO2 24 21 - 30 MMOL/L KU MAIN LAB Anion Gap 11 3 - 12 KU MAIN LAB Glucose 138 (H) 70 - 100 MG/DL KU MAIN LAB Blood Urea 32 (H) 7 - 25 MG/DL KU MAIN LAB Nitrogen Creatinine 0.72 0.4 - 1.00 MG/DL KU MAIN LAB Calcium 8.8 8.5 - 10.6 MG/DL KU MAIN LAB eGFR Non >60 >60 mL/min KU MAIN LAB Comment: [place] The eGFR is not validated f or use in drug dosing adjustments. Continue to use estimated creatinine clearance per dosing reference text. Please contact the Clinical Pharmacist for questions. eGFR >60 >60 mL/min KU MAIN LAB [place] Comment: The eGFR is not validated for use in drug dosing adjustments. Continue to use estimated creatinine clearance per dosing reference text. Please contact the Clinical Pharmacist for questions. Specimen Performing Organization Address [facility] P narendra Number KU MAIN LAB [address] [place] [address] * POC GLUCOSE (12/20/2020 10:13 PM CDT) Glucose, POC 178 (H) 70 - 100 MG/DL KU MAIN LAB Specimen Performing Organization Address City/State/ZIP Code P narendra Number KU MAIN LAB [address] [place] [address] * POC GLUCOSE (12/20/2020 4:59 PM CDT) Glucose, POC 176 (H) 70 - 100 MG/DL KU MAIN LAB Specimen Performing Organization Address City/[facility]/ZIP Code P narendra Number KU MAIN LAB [address] [place] [address] * LIMITED ECHO (12/20/2020 2:00 PM CDT) Left Ventricle 240.00 46 - 106 mL [...] CV ECHO PV Priscialla, RDCS OTHER OUTSIDE CEMENT BASED MATERIALS PUMP TENDER LAB Left Atrium 30.10 16 - 34 OTHER OUTSIDE Index LAB Cardiology Siemens [id number] OTHER OUTSIDE Ultrasound LAB Machine QUIÑONES'S 25 [...] prior study on 12/13/2020. Performing Organization Address City/[facility]/ZIP Code P narendra Number OTHER OUTSIDE LAB * POC GLUCOSE (12/20/2020 11:04 AM CDT) Glucose, POC 187 (H) 70 - 100 MG/DL KU MAIN LAB Specimen Performing Organization Address [facility] Code P narendra Number KU MAIN LAB [address] [place] [address] * POC GLUCOSE (12/20/2020 8:12 AM CDT) Glucose, POC 152 (H) 70 - 100 MG/DL KU MAIN LAB Specimen Performing Organization Address City/[facility] Code P narendra Number KU MAIN LAB [address] [place] [address] * MAGNESIUM (12/20/2020 5:05 AM CDT) Magnesium 2.6 1.6 - 2.6 mg/dL KU MAIN LAB Specimen Performing Organization Address [facility] P narendra Number KU MAIN LAB [address] [place] [id number] * CBC (12/20/2020 5:05 AM CDT) White Blood 11.8 (H) 4.5 - 11.0 K/UL KU MAIN LAB Cells RBC 2.73 (L) 4.0 - 5.0 M/UL KU MAIN LAB Hemoglobin 8.6 (L) 12.0 - 15.0 GM/DL KU MAIN LAB Hematocrit 25.5 (L) 36 - 45 % KU MAIN LAB MCV 93.7 80 - 100 FL KU MAIN LAB MCH 31.6 26 - 34 PG MAIN LAB MCHC 33.7 32.0 - 36.0 G/DL MAIN LAB RDW 14.9 11 - 15 % KU MAIN LAB Platelet Count 239 150 - 400 K/UL KU MAIN LAB MPV 8.0 7 - 11 FL KU MAIN LAB Specimen Performing Organization Address [facility] P narendra Number MAIN LAB [address] [place] [id number] * BASIC METABOLIC PANEL (12/20/2020 5:05 AM CDT) Sodium 141 137 - 147 MMOL/L KU MAIN LAB Potassium 4.1 3.5 - 5.1 MMOL/L KU MAIN LAB Chloride 107 98 - 110 MMOL/L K[facility] MAIN LAB CO2 24 21 - 30 MMOL/L KU MAIN LAB Anion Gap 10 3 - 12 KU MAIN LAB Glucose 142 (H) 70 - 100 MG/DL KU MAIN LAB Blood Urea 44 (H) 7 - 25 MG/DL KU MAIN LAB Nitrogen Creatinine 0.95 0.4 - 1.00 MG/DL KU MAIN LAB Calcium 8.8 8.5 - 10.6 MG/DL KU MAIN LAB eGFR Non 58 (L) >60 mL/min KU MAIN LAB Comment: [place] The eGFR is not validated f or use in drug dosing adjustments. Continue to use estimated creatinine clearance per dosing reference text. Please contact the Clinical Pharmacist for questions. eGFR >60 >60 mL/min KU MAIN LAB [place] Comment: The eGFR is not validated for use in drug dosing adjustments. Continue to use estimated creatinine clearance per dosing reference text. Please contact the Clinical Pharmacist for questions. Specimen Performing Organization Address City/[facility]/ZIP Code P narendra Number MAIN LAB [address] [place] [address] * POC GLUCOSE (12/19/2020 9:50 PM CDT) Glucose, POC 188 (H) 70 - 100 MG/DL MAIN LAB Specimen Performing Organization Address City/[facility]/ZIP [facility] P narendra Number MAIN LAB [address] [place] [id number] * POC GLUCOSE (12/19/2020 5:14 PM CDT) Glucose, POC 240 (H) 70 - 100 MG/DL MAIN LAB Specimen Performing Organization Address [facility] P narendra Number MAIN LAB [address] [place] [address] * CHEST SINGLE VIEW (12/19/2020 3:37 PM CDT) Specimen Impressions Performed At 1. Removal of right chest tube. Right IJ vascular she ath remains. No KU RAD RESULTS pneumothorax. 2. Small pleural effusions with bibasil ar atelectasis. Finalized by STACIE VERA M.D. on 021 4:19 PM. Dictated by STACIE VERA M.D. on 12/19/2020 4:17 PM. Narrative Performed At CHEST SINGLE VIEW KU RAD RESULTS INDICATION: Status post chest tube alivia vaishali. COMPARISON: Chest x-ray earlier the . FINDINGS: Support Devices: Right IJ vascular moreno th remains in place. Right chest tube has been removed. Heart and Mediastinum: Median sternotom y and CABG. Mild cardiomegaly. Lungs/Pleura: Persistent small pleural effusions with basilar areas of atelectasis. No pneumothorax. Procedure Note Interface, Radiant Results - 12/19/2020 4:22 PM CDT CHEST SINGLE VIEW INDICATION: Status post chest tube removal. COMPARISON: Chest x-ray earlier the same day. FINDINGS: Support Devices: Right IJ vascular sheath remains in place. Right chest tube has been removed. Heart and Mediastinum: Median sternotomy and CABG. Mild cardiomegaly. Lungs/Pleura: Persistent small pleural effusions with basilar areas of atelectasis. No pneumothorax. IMPRESSION 1. Removal of right chest tube. Right IJ vascular sheath remains. No pneumothorax. 2. Small pleural effusions with bibasila r atelectasis. Finalized by STACIE VERA M.D. on 12/19/2020 4:19 PM. Dictated by STACIE VERA M.D. on 12/19/2020 4:17 PM. Performing Organization Address City/[facility]/ZIP Code P narendra Number KU RAD RESULTS * POC GLUCOSE (12/19/2020 1:00 PM CDT) Glucose, POC 219 (H) 70 - 100 MG/DL KU MAIN LAB Specimen Performing Organization Address [facility]/ZIP Code P narendra Number KU MAIN LAB [address] [place] [address] * POC GLUCOSE (12/19/2020 7:36 AM CDT) Glucose, POC 186 (H) 70 - 100 MG/DL KU MAIN LAB Specimen Performing Organization Address [facility] P narendra Number KU MAIN LAB [address] [place] [address] * CHEST SINGLE VIEW (12/19/2020 4:37 AM CDT) Specimen Impressions Performed At 1. Improved pulmonary vascular congestion and persist ent mild cardiomegaly. KU RAD RESULTS 2. Persistent bibasilar atelectasis and trace bilateral pleural effusions. 3. Interval removal of [address] ains and pulmonary artery catheter. Interval placement of right IJ catheter . Approved by Ron Singh MD on 12/19/2020 11:38 AM By my electronic signature, I attest th at I have personally reviewed the images for this examination and formulated the interpretations and opinions expressed in this report Finalized by Poli Wesley M.D. on 2020 11:39 AM. Dictated by Ron Singh MD on 12/19/2020 8:49 AM. Narrative Performed At CHEST SINGLE VIEW KU RAD RESULTS INDICATION: ATELECTASIS. COMPARISON STUDY: Chest radiograph 12/18 FINDINGS: Support Devices: Interval removal of 2 mediastinal drains and right IJ pulmonary artery catheter. Bilateral thoracostomy tubes and right IJ catheter sheath remain in stable position. Lungs/Pleura: Improved pulmonary vascul ar congestion. Persistent bibasilar atelectasis and trace bilateral pleural effusions. No pneumothorax. Heart and Mediastinum: The heart remain s mildly enlarged. Post-CABG changes Procedure Note Interface, Radiant Results - 12/19/2020 11:42 AM CDT CHEST SINGLE VIEW INDICATION: ATELECTASIS. COMPARISON STUDY: Chest radiograph 12/18/2020 FINDINGS: Support Devices: Interval removal of 2 mediastinal drains and right IJ pulmonary artery catheter. Bilateral thoracostomy tubes and right IJ catheter sheath remain in stable position. Lungs/Pleura: Improved pulmonary vascular congestion. Persistent bibasilar atelectasis and trace bilateral pleural effusions. No pneumothorax. Heart and Mediastinum: The heart remains mildly enlarged. Post-CABG changes IMPRESSION 1. Improved pulmonary vascular congestio n and persistent mild cardiomegaly. 2. Persistent bibasilar atelectasis and trace bilateral pleural effusions. 3. Interval removal of 2 mediastinal ynes ins and pulmonary artery catheter. Interval placement of right IJ catheter. Approved by Ron Singh MD on 12/19/2020 11:38 AM By my electronic signature, I attest that I have personally reviewed the images for this examination and formulated the interpretations and opinions expressed in this report Finalized by Poli Wesley M.D. on 12/19/2020 11:39 AM. Dictated by Ron Singh MD on 12/19/2020 8:49 AM. Performing Organization Address City/State/ZIP Code P narendra Number KU RAD RESULTS * MAGNESIUM (12/19/2020 3:03 AM CDT) Magnesium 2.4 1.6 - 2.6 mg/dL KU MAIN LAB Specimen Performing Organization Address City/State/ZIP Code P narendra Number KU MAIN LAB [address] [place] [phone] * BASIC METABOLIC PANEL (12/19/2020 3:03 AM CDT) Sodium 142 137 - 147 MMOL/L KU MAIN LAB Potassium 4.5 3.5 - 5.1 MMOL/L KU MAIN LAB Chloride 108 98 - 110 MMOL/L KU MAIN LAB CO2 21 21 - 30 MMOL/L KU MAIN LAB Anion Gap 13 (H) 3 - 12 KU MAIN LAB Glucose 173 (H) 70 - 100 MG/DL KU MAIN LAB Blood Urea 29 (H) 7 - 25 MG/DL KU MAIN LAB Nitrogen Creatinine 0.86 0.4 - 1.00 MG/DL KU MAIN LAB Calcium 8.7 8.5 - 10.6 MG/DL KU MAIN LAB eGFR Non >60 >60 mL/min KU MAIN LAB Comment: [place] The eGFR is not validated f or use in drug dosing adjustments. Continue to use estimated creatinine clearance per dosing reference text. Please contact the Clinical Pharmacist for questions. eGFR >60 >60 mL/min KU MAIN LAB [place] Comment: The eGFR is not validated for use in drug dosing adjustments. Continue to use estimated creatinine clearance per dosing reference text. Please contact the Clinical Pharmacist for questions. Specimen Performing Organization Address City/[facility] P narendra Number KU MAIN LAB [address] [place] [address] * CBC (12/19/2020 3:03 AM CDT) White Blood 15.5 (H) 4.5 - 11.0 K/UL KU MAIN LAB Cells RBC 2.42 (L) 4.0 - 5.0 M/UL KU MAIN LAB Hemoglobin 7.4 (L) 12.0 - 15.0 GM/DL KU MAIN LAB Hematocrit 22.5 (L) 36 - 45 % KU MAIN LAB MCV 92.9 80 - 100 FL KU MAIN LAB MCH 30.7 26 - 34 PG KU MAIN LAB MCHC 33.0 32.0 - 36.0 G/DL KU MAIN LAB RDW 15.1 (H) 11 - 15 % KU MAIN LAB Platelet Count 177 150 - 400 K/UL KU MAIN LAB MPV 8.1 7 - 11 FL MAIN LAB Specimen Performing Organization Address City/[facility]/ZIP Code P narendra Number MAIN LAB [address] [place] [address] * POC GLUCOSE (12/18/2020 9:12 PM CDT) Glucose, POC 177 (H) 70 - 100 MG/DL MAIN LAB Specimen Performing Organization Address City/[facility]/ZIP Code P narendra Number MAIN LAB [address] [place] [address] * POC GLUCOSE (12/18/2020 5:20 PM CDT) Glucose, POC 191 (H) 70 - 100 MG/DL MAIN LAB Specimen Performing Organization Address City/[facility] Code P narendra Number MAIN LAB [address] [place] [address] * POC GLUCOSE (12/18/2020 3:59 PM CDT) Glucose, POC 191 (H) 70 - 100 MG/DL MAIN LAB Specimen Performing Organization Address City/[facility] Code P narendra Number MAIN LAB [address] [place] [address] * POC GLUCOSE (12/18/2020 10:57 AM CDT) Glucose, POC 189 (H) 70 - 100 MG/DL MAIN LAB Specimen Performing Organization Address City/[facility]/ZIP Code P narendra Number MAIN LAB [address] [place] [address] * POC GLUCOSE (12/18/2020 7:57 AM CDT) Glucose, POC 148 (H) 70 - 100 MG/DL MAIN LAB Specimen Performing Organization Address City/[facility]/ZIP Code P narendra Number MAIN LAB [address] [place] [address] * POC GLUCOSE (12/18/2020 7:01 AM CDT) Glucose, POC 145 (H) 70 - 100 MG/DL MAIN LAB Specimen Performing Organization Address City/[facility]/ZIP Code P narendra Number MAIN LAB [address] [place] [address] * POC GLUCOSE (12/18/2020 4:54 AM CDT) Glucose, POC 141 (H) 70 - 100 MG/DL KU MAIN LAB Specimen Performing Organization Address City/State/ZIP Code P narendra Number MAIN LAB [address] [place] [address] * CHEST SINGLE VIEW (12/18/2020 4:45 AM CDT) Specimen Impressions Performed At 1. Cardiomegaly with interval increase of pulmonary e tato and bilateral trace KU RAD RESULTS pleural effusions, likely CHF. 2. Bibasilar atelectasis. 3. Interval removal of IABP, ET tube, a nd gastric tube. Approved by Ron Singh MD on 12/18/2020 9:16 AM By my electronic signature, I attest th at I have personally reviewed the images for this examination and formulated the interpretations and opinions expressed in this report Finalized by Poli Wesley M.D. on 2020 9:22 AM. Dictated by Ron Singh MD on 12/18/2020 8:17 AM. Narrative Performed At CHEST SINGLE VIEW KU RAD RESULTS INDICATION: ATELECTASIS. COMPARISON STUDY: Chest radiograph 12/18 FINDINGS: Support Devices: Interval removal of IA BP, ET tube, and gastric tube. Pulmonary artery catheter, bilateral thoracostomy tubes, mediastinal drain, and pericardial drain are stable in positio n. Lungs/Pleura: Interval increase of pulm onary edema and persistent bibasilar atelectasis. Bilateral trace pleural ef fusions. No pneumothorax. Heart and Mediastinum: The cardiac silh ouette remains mildly enlarged. Median sternotomy wires and postsurgical clips are again visualized. Procedure Note Interface, Radiant Results - 12/18/2020 9:25 AM CDT CHEST SINGLE VIEW INDICATION: ATELECTASIS. COMPARISON STUDY: Chest radiograph 12/18/2020 FINDINGS: Support Devices: Interval removal of IABP, ET tube, and gastric tube. Pulmonary artery catheter, bilateral thoracostomy tubes, mediastinal drain, and pericardial drain are stable in position. Lungs/Pleura: Interval increase of pulmonary edema and persistent bibasilar atelectasis. Bilateral trace pleural effusions. No pneumothorax. Heart and Mediastinum: The cardiac silhouette remains mildly enlarged. Median sternotomy wires and postsurgical clips are again visualized. IMPRESSION 1. Cardiomegaly with interval increase o f pulmonary edema and bilateral trace pleural effusions, likely CHF. 2. Bibasilar atelectasis. 3. Interval removal of IABP, ET tube, an d gastric tube. Approved by Ron Singh MD on 12/18/2020 9:16 AM By my electronic signature, I attest that I have personally reviewed the images for this examination and formulated the interpretations and opinions expressed in this report Finalized by Poli Wesley M.D. on 12/18/2020 9:22 AM. Dictated by Ron Singh MD on 12/18/2020 8:17 AM. Performing Organization Address City/State/ZIP Code P narendra Number KU RAD RESULTS * O2 SATURATION, MIXED VENOUS (12/18/2020 3:18 AM CDT) [id number] 55.4 % KU MAIN LAB Venous Specimen Blood Performing Organization Address [facility] P narendra Number KU MAIN LAB [address] [place] [address] * MAGNESIUM (12/18/2020 2:56 AM CDT) Magnesium 2.4 1.6 - 2.6 mg/dL KU MAIN LAB Specimen Performing Organization Address [facility] P narendra Number KU MAIN LAB [address] [place] [address] * BASIC METABOLIC PANEL (12/18/2020 2:56 AM CDT) Sodium 141 137 - 147 MMOL/L KU MAIN LAB Potassium 4.7 3.5 - 5.1 MMOL/L KU MAIN LAB Chloride 110 98 - 110 MMOL/L KU MAIN LAB CO2 21 21 - 30 MMOL/L KU MAIN LAB Anion Gap 10 3 - 12 KU MAIN LAB Glucose 131 (H) 70 - 100 MG/DL KU MAIN LAB Blood Urea 16 7 - 25 MG/DL K[facility] MAIN LAB Nitrogen Creatinine 0.68 0.4 - 1.00 MG/DL KU MAIN LAB Calcium 8.5 8.5 - 10.6 MG/DL KU MAIN LAB eGFR Non >60 >60 mL/min KU MAIN LAB Comment: [place] The eGFR is not validated f or use in drug dosing adjustments. Continue to use estimated creatinine clearance per dosing reference text. Please contact the Clinical Pharmacist for questions. eGFR >60 >60 mL/min KU MAIN LAB [place] Comment: The eGFR is not validated for use in drug dosing adjustments. Continue to use estimated creatinine clearance per dosing reference text. Please contact the Clinical Pharmacist for questions. Specimen Performing Organization Address City/[facility]/ZIP Code P narendra Number KU MAIN LAB [address] [place] [address] * CBC (12/18/2020 2:56 AM CDT) White Blood 17.0 (H) 4.5 - 11.0 K/UL KU MAIN LAB Cells RBC 2.43 (L) 4.0 - 5.0 M/UL K[facility] MAIN LAB Hemoglobin 7.7 (L) 12.0 - 15.0 GM/DL KU MAIN LAB Hematocrit 22.2 (L) 36 - 45 % K[facility] MAIN LAB MCV 91.4 80 - 100 FL K[facility] MAIN LAB MCH 31.6 26 - 34 PG K[facility] MAIN LAB MCHC 34.6 32.0 - 36.0 G/DL K[facility] MAIN LAB RDW 14.7 11 - 15 % K[facility] MAIN LAB Platelet Count 150 150 - 400 K/UL K[facility] MAIN LAB MPV 8.2 7 - 11 FL KU MAIN LAB Specimen Performing Organization Address City/[facility] Code P narendra Number KU MAIN LAB [address] [place] [address] * POC GLUCOSE (12/18/2020 2:53 AM CDT) Glucose, POC 139 (H) 70 - 100 MG/DL K[facility] MAIN LAB Specimen Performing Organization Address City/[facility]/ZIP Code P narendra Number KU MAIN LAB [address] [place] [address] * POC GLUCOSE (12/18/2020 1:09 AM CDT) Glucose, POC 141 (H) 70 - 100 MG/DL KU MAIN LAB Specimen Performing Organization Address City/[facility]/ZIP Code P narendra Number KU MAIN LAB [address] [place] [address] * POC GLUCOSE (12/17/2020 10:53 PM CDT) Glucose, POC 148 (H) 70 - 100 MG/DL K[facility] MAIN LAB Specimen Performing Organization Address City/[facility]/ZIP Code P narendra Number KU MAIN LAB [address] [place] [address] * POC GLUCOSE (12/17/2020 8:50 PM CDT) Glucose, POC 130 (H) 70 - 100 MG/DL K[facility] MAIN LAB Specimen Performing Organization Address [facility] Code P narendra Number KU MAIN LAB [address] [place] [address] * POC GLUCOSE (12/17/2020 6:47 PM CDT) Glucose, POC 132 (H) 70 - 100 MG/DL K[facility] MAIN LAB Specimen Performing Organization Address City/[facility] Code P narendra Number KU MAIN LAB [address] [place] [address] * BLOOD GASES, ARTERIAL (12/17/2020 6:46 PM CDT) pH-Arterial 7.38 7.35 - 7.45 K[facility] MAIN LAB pCO2-Arterial 36 35 - 45 MMHG [facility] MAIN LAB pO2-Arterial 131 (H) 80 - 100 MMHG [facility] MAIN LAB Base 3.8 MMOL/L K[facility] MAIN LAB Deficit-Arteria l O2 Sat-Arterial 98.8 95 - 99 % [facility] MAIN LAB Bicarbonate-ART 21.2 21 - 28 MMOL/L [facility] MAIN LAB -[place] Specimen Blood, arterial - Blood Performing Organization Address [facility] P narendra Number MAIN LAB [address] [place] [address] * POC GLUCOSE (12/17/2020 5:43 PM CDT) Glucose, POC 130 (H) 70 - 100 MG/DL K[facility] MAIN LAB Specimen Performing Organization Address [facility] P narendra Number KU MAIN LAB [address] [place] [id number] * BLOOD GASES, ARTERIAL (12/17/2020 5:40 PM CDT) pH-Arterial 7.37 7.35 - 7.45 KU MAIN LAB pCO2-Arterial 37 35 - 45 MMHG K[facility] MAIN LAB pO2-Arterial 141 (H) 80 - 100 MMHG K[facility] MAIN LAB Base 3.8 MMOL/L K[facility] MAIN LAB Deficit-Arteria l O2 Sat-Arterial 98.9 95 - 99 % [facility] MAIN LAB Bicarbonate-ART 21.2 21 - 28 MMOL/L KU MAIN LAB -[place] Specimen Blood, arterial - Blood Performing Organization Address City/[facility] Code P narendra Number MAIN LAB [address] [place] [address] * O2 SATURATION, MIXED VENOUS (12/17/2020 3:50 PM CDT) [id number] 51.2 % KU MAIN LAB Venous Specimen Blood Performing Organization Address City/[facility]/ZIP Code P narendra Number MAIN LAB [address] [place] [address] * BLOOD GASES, ARTERIAL (12/17/2020 3:50 PM CDT) Pathologist [facility] pH-Arterial 7.38 7.35 - 7.45 KU MAIN LAB pCO2-Arterial 36 35 - 45 MMHG KU MAIN LAB pO2-Arterial 136 (H) 80 - 100 MMHG KU MAIN LAB Base 3.6 MMOL/L KU MAIN LAB Deficit-Arteria l O2 Sat-Arterial 99.0 95 - 99 % KU MAIN LAB Bicarbonate-ART 21.4 21 - 28 MMOL/L [facility] MAIN LAB -[place] Specimen Blood, arterial - Blood Performing Organization Address City/[facility]/ZIP [facility] P narendra Number MAIN LAB [address] [place] [address] * BASIC METABOLIC PANEL (12/17/2020 3:50 PM CDT) Pathologist [facility] Sodium 145 137 - 147 MMOL/L KU MAIN LAB Potassium 4.7 3.5 - 5.1 MMOL/L [facility] MAIN LAB Chloride 114 (H) 98 - 110 MMOL/L K[facility] MAIN LAB CO2 22 21 - 30 MMOL/L K[facility] MAIN LAB Anion Gap 9 3 - 12 KU MAIN LAB Glucose 139 (H) 70 - 100 MG/DL K[facility] MAIN LAB Blood Urea 13 7 - 25 MG/DL K[facility] MAIN LAB Nitrogen Creatinine 0.70 0.4 - 1.00 MG/DL KU MAIN LAB Calcium 8.6 8.5 - 10.6 MG/DL KU MAIN LAB eGFR Non >60 >60 mL/min [facility] MAIN LAB Comment: [place] The eGFR is not validated f or use in drug dosing adjustments. Continue to use estimated creatinine clearance per dosing reference text. Please contact the Clinical Pharmacist for questions. eGFR >60 >60 mL/min KU MAIN LAB [place] Comment: The eGFR is not validated for use in drug dosing adjustments. Continue to use estimated creatinine clearance per dosing reference text. Please contact the Clinical Pharmacist for questions. Specimen Blood Performing Organization Address City/[facility]/ZIP Code P narendra Number MAIN LAB [address] [place] [address] * CBC (12/17/2020 3:50 PM CDT) White Blood 15.1 (H) 4.5 - 11.0 K/UL KU MAIN LAB Cells RBC 2.63 (L) 4.0 - 5.0 M/UL KU MAIN LAB Hemoglobin 8.0 (L) 12.0 - 15.0 GM/DL KU MAIN LAB Hematocrit 24.2 (L) 36 - 45 % KU MAIN LAB MCV 91.9 80 - 100 FL MAIN LAB MCH 30.5 26 - 34 PG MAIN LAB MCHC 33.2 32.0 - 36.0 G/DL MAIN LAB RDW 14.5 11 - 15 % KU MAIN LAB Platelet Count 157 150 - 400 K/UL MAIN LAB MPV 8.1 7 - 11 FL MAIN LAB Specimen Blood Performing Organization Address City/[facility]/ZIP Code P narendra Number KU MAIN LAB [address] [place] [address] * POC GLUCOSE (12/17/2020 3:15 PM CDT) Glucose, POC 141 (H) 70 - 100 MG/DL KU MAIN LAB Specimen Performing Organization Address City/[facility]/ZIP Code P narendra Number MAIN LAB [address] [place] [address] * POC GLUCOSE (12/17/2020 12:52 PM CDT) Glucose, POC 140 (H) 70 - 100 MG/DL MAIN LAB Specimen Performing Organization Address [facility]/ZIP Code P narendra Number MAIN LAB [address] [place] [address] * US DOPPLER ART LE RIGHT (12/17/2020 12:25 PM CDT) Specimen Right Impressions Performed At 1. Acute occlusive thrombus extending from the popliteal artery into the right KU RAD RESULTS posterior tibial and peroneal arteries. There is trickle flow in the right anterior tibial and dorsalis pedis angelito orlf. 2. Small right groin hematoma. These findings were messaged to Mildred reeves by Dr. Moeller at 12:30 on 12/17/2020 on Voalte. Finalized by Matt Orozco on 12/17/2020 12:31 PM. Dictated by Gifty Moeller M.D. on 12/18/19 12:25 PM. Narrative Performed At RIGHT LOWER [...] in the right groin. Common femoral artery (ORGANIC CHEMIST): Patent wit h normal high resistive waveform Upper deep femoral artery: Patent with normal high resistive waveform Superficial femoral artery (SFA): Paten t with normal high resistive waveform Popliteal artery: Occlusive thrombus Anterior tibial artery (SYDNIE): Trickle f low with monophasic waveform Posterior tibial artery (TUGBOAT OPERATOR): Occlusiv e thrombus Peroneal artery: Occlusive thrombus [...] in the right groin. Common femoral artery (ORGANIC CHEMIST): Patent with normal high resistive waveform Upper deep femoral artery: Patent with normal high resistive waveform Superficial femoral artery (SFA): Patent with normal high resistive waveform Popliteal artery: Occlusive thrombus Anterior tibial artery (SYDNIE): Trickle flow with monophasic waveform Posterior tibial artery (TUGBOAT OPERATOR): Occlusive thrombus Peroneal artery: Occlusive thrombus Dorsalis [...] on 12/17/2020 12:25 PM. Performing Organization Address [facility] Code P narendra Number RAD RESULTS * POC GLUCOSE (12/17/2020 11:00 AM CDT) Glucose, POC 137 (H) 70 - 100 MG/DL MAIN LAB Specimen Performing Organization Address [facility] P narendra Number MAIN LAB [address] [place] [address] * O2 SATURATION, MIXED VENOUS (12/17/2020 9:17 AM CDT) [id number] 52.5 % MAIN LAB Venous Specimen Blood Performing Organization Address [facility] P narendra Number MAIN LAB [address] [place] [address] * POC GLUCOSE (12/17/2020 9:14 AM CDT) Glucose, POC 137 (H) 70 - 100 MG/DL KU MAIN LAB Specimen Performing Organization Address [facility] P narendra Number MAIN LAB [address] [place] [address] * POC GLUCOSE (12/17/2020 8:12 AM CDT) Glucose, POC 133 (H) 70 - 100 MG/DL KU MAIN LAB Specimen Performing Organization Address [facility] P narendra Number MAIN LAB [address] [place] [address] * POC GLUCOSE (12/17/2020 6:52 AM CDT) Glucose, POC 124 (H) 70 - 100 MG/DL MAIN LAB Specimen Performing Organization Address [facility] P narendra Number MAIN LAB [address] [place] [address] * POC GLUCOSE (12/17/2020 5:48 AM CDT) Glucose, POC 149 (H) 70 - 100 MG/DL KU MAIN LAB Specimen Performing Organization Address City/[facility]/ZIP Code P narendra Number MAIN LAB [address] [place] [address] * POC GLUCOSE (12/17/2020 4:51 AM CDT) Glucose, POC 111 (H) 70 - 100 MG/DL MAIN LAB Specimen Performing Organization Address City/[facility]/ZIP Code P narendra Number MAIN LAB [address] [place] [address] * CHEST SINGLE VIEW (12/17/2020 4:25 AM CDT) Specimen Impressions Performed At 1. Mild bibasilar opacities, likely atelectasis. K U RAD RESULTS 2. Interval decrease in pulmonary gia ma. Finalized by Sandy Hidalgo M.D. on 8:18 AM. Dictated by Sandy Hidalgo M.D. on 12/17/2020 8:16 AM. Narrative Performed At CHEST SINGLE VIEW KU RAD RESULTS INDICATION: ATELECTASIS COMPARISON STUDY: December 16, 2020. FINDINGS: Support Devices: Visualized support dev ices are stable. Lungs/Pleura: The lung volume is normal . Mild bibasilar opacity. No significant pleural effusion or pneumothorax. Decre ased vascular indistinctness. Heart and Mediastinum: The cardiomedias tinal silhouette is stable. Procedure Note Interface, Radiant Results - 12/17/2020 8:21 AM CDT CHEST SINGLE VIEW INDICATION: ATELECTASIS COMPARISON STUDY: December 16, 2020. FINDINGS: Support Devices: Visualized support devices are stable. Lungs/Pleura: The lung volume is normal. Mild bibasilar opacity. No significant pleural effusion or pneumothorax. Decreased vascular indistinctness. Heart and Mediastinum: The cardiomediastinal silhouette is stable. IMPRESSION 1. Mild bibasilar opacities, likely ate lectasis. 2. Interval decrease in pulmonary edema . Finalized by Sandy Hidalgo M.D. on 12/17/2020 8:18 AM. Dictated by Sandy Hidalgo M.D. on 12/17/2020 8:16 AM. Performing Organization Address City/[facility]/ZIP Code P narendra Number KU RAD RESULTS * POC GLUCOSE (12/17/2020 3:53 AM CDT) Glucose, POC 101 (H) 70 - 100 MG/DL KU MAIN LAB Specimen Performing Organization Address City/[facility] Code P narendra Number KU MAIN LAB [address] [place] [address] * POC GLUCOSE (12/17/2020 3:09 AM CDT) Glucose, POC 106 (H) 70 - 100 MG/DL KU MAIN LAB Specimen Performing Organization Address City/[facility] Code P narendra Number KU MAIN LAB [address] [place] [address] * MAGNESIUM (12/17/2020 2:14 AM CDT) Magnesium 2.6 1.6 - 2.6 mg/dL KU MAIN LAB Specimen Performing Organization Address [facility] P narendra Number MAIN LAB [address] [place] [address] * BASIC METABOLIC PANEL (12/17/2020 2:14 AM CDT) Sodium 143 137 - 147 MMOL/L KU MAIN LAB Potassium 4.2 3.5 - 5.1 MMOL/L K[facility] MAIN LAB Chloride 113 (H) 98 - 110 MMOL/L K[facility] MAIN LAB CO2 22 21 - 30 MMOL/L KU MAIN LAB Anion Gap 8 3 - 12 KU MAIN LAB Glucose 110 (H) 70 - 100 MG/DL K[facility] MAIN LAB Blood Urea 13 7 - 25 MG/DL K[facility] MAIN LAB Nitrogen Creatinine 0.83 0.4 - 1.00 MG/DL KU MAIN LAB Calcium 8.7 8.5 - 10.6 MG/DL K[facility] MAIN LAB eGFR Non >60 >60 mL/min KU MAIN LAB Comment: [place] The eGFR is not validated f or use in drug dosing adjustments. Continue to use estimated creatinine clearance per dosing reference text. Please contact the Clinical Pharmacist for questions. eGFR >60 >60 mL/min KU MAIN LAB [place] Comment: The eGFR is not validated for use in drug dosing adjustments. Continue to use estimated creatinine clearance per dosing reference text. Please contact the Clinical Pharmacist for questions. Specimen Performing Organization Address [facility]/ZIP Code P narendra Number MAIN LAB [address] [place] [id number] * CBC (12/17/2020 2:14 AM CDT) [facility] White Blood 11.8 (H) 4.5 - 11.0 K/UL MAIN LAB Cells RBC 2.82 (L) 4.0 - 5.0 M/UL MAIN LAB Hemoglobin 8.7 (L) 12.0 - 15.0 GM/DL MAIN LAB Hematocrit 25.4 (L) 36 - 45 % MAIN LAB MCV 89.8 80 - 100 FL MAIN LAB MCH 30.9 26 - 34 PG MAIN LAB MCHC 34.5 32.0 - 36.0 G/DL MAIN LAB RDW 13.9 11 - 15 % MAIN LAB Platelet Count 172 150 - 400 K/UL MAIN LAB MPV 7.7 7 - 11 FL MAIN LAB Specimen Performing Organization Address [facility] P narendra Number MAIN LAB [address] [place] [address] * O2 SATURATION, MIXED VENOUS (12/17/2020 2:14 AM CDT) [facility] [id number] 68.8 % MAIN LAB Venous Specimen Blood Performing Organization Address [facility] P narendra Number MAIN LAB [address] [place] [id number] * BLOOD GASES, ARTERIAL (12/17/2020 2:14 AM CDT) [facility] pH-Arterial 7.40 7.35 - 7.45 MAIN LAB pCO2-Arterial 34 (L) 35 - 45 MMHG MAIN LAB pO2-Arterial 159 (H) 80 - 100 MMHG MAIN LAB Base 3.2 MMOL/L MAIN LAB Deficit-Arteria l O2 Sat-Arterial 99.2 (H) 95 - 99 % MAIN LAB Bicarbonate-ART 21.7 21 - 28 MMOL/L MAIN LAB -[place] Specimen Blood, arterial - Blood Performing Organization Address [facility] P narendra Number MAIN LAB [address] [place] [id number] * POC GLUCOSE (12/17/2020 1:51 AM CDT) [facility] Glucose, POC 118 (H) 70 - 100 MG/DL MAIN LAB Specimen Performing Organization Address [facility]/ZIP Code P narendra Number MAIN LAB [address] [place] [id number] * POC GLUCOSE (12/17/2020 12:52 AM CDT) Glucose, POC 102 (H) 70 - 100 MG/DL MAIN LAB Specimen Performing Organization Address City/[facility] Code P narendra Number MAIN LAB [address] [place] [address] * POC GLUCOSE (12/16/2020 10:53 PM CDT) Glucose, POC 130 (H) 70 - 100 MG/DL MAIN LAB Specimen Performing Organization Address City/[facility]/ZIP Code P narendra Number MAIN LAB [address] [place] [address] * POC GLUCOSE (12/16/2020 9:57 PM CDT) Glucose, POC 136 (H) 70 - 100 MG/DL MAIN LAB Specimen Performing Organization Address [facility] Code P narendra Number MAIN LAB [address] [place] [address] * POC GLUCOSE (12/16/2020 9:06 PM CDT) Glucose, POC 143 (H) 70 - 100 MG/DL MAIN LAB Specimen Performing Organization Address City/[facility] Code P narendra Number MAIN LAB [address] [place] [address] * POC GLUCOSE (12/16/2020 7:50 PM CDT) Glucose, POC 154 (H) 70 - 100 MG/DL MAIN LAB Specimen Performing Organization Address [facility]/ZIP Code P narendra Number MAIN LAB [address] [place] [address] * POC GLUCOSE (12/16/2020 6:46 PM CDT) Glucose, POC 166 (H) 70 - 100 MG/DL MAIN LAB Specimen Performing Organization Address City/[facility]/ZIP Code P narendra Number MAIN LAB [address] [place] [address] * POC GLUCOSE (12/16/2020 4:56 PM CDT) Glucose, POC 174 (H) 70 - 100 MG/DL MAIN LAB Specimen Performing Organization Address [facility]/ZIP Code P narendra Number MAIN LAB [address] [place] [address] * POTASSIUM (12/16/2020 4:55 PM CDT) Potassium 4.4 3.5 - 5.1 MMOL/L MAIN LAB Specimen Blood Performing Organization Address City/[facility] Code P narendra Number MAIN LAB [address] [place] [address] * POC GLUCOSE (12/16/2020 4:05 PM CDT) Glucose, POC 180 (H) 70 - 100 MG/DL MAIN LAB Specimen Performing Organization Address City/[facility] Code P narendra Number MAIN LAB [address] [place] [address] * POC GLUCOSE (12/16/2020 2:59 PM CDT) Glucose, POC 188 (H) 70 - 100 MG/DL MAIN LAB Specimen Performing Organization Address [facility] P narendra Number MAIN LAB [address] [place] [address] * O2 SATURATION, MIXED VENOUS (12/16/2020 1:33 PM CDT) [id number] 53.5 % MAIN LAB Venous Specimen Blood Performing Organization Address [facility] P narendra Number MAIN LAB [address] [place] [address] * POC BLOOD GAS ARTERIAL (12/16/2020 1:13 PM CDT) PH-ART-POC 7.34 (L) 7.35 - 7.45 MAIN LAB [id number] 39 35 - 45 MMHG MAIN LAB PO2-ART-POC 143 (H) 80 - 100 MMHG MAIN LAB Base 4.0 MMOL/L MAIN LAB Def-ART-POC O2 Sat-ART-POC 99.0 95 - 99 % MAIN LAB Bicarbonate-ART 21.3 21 - 28 MMOL/L MAIN LAB -POC Specimen Performing Organization Address [facility] Code P narendra Number MAIN LAB [address] [place] [address] * POC GLUCOSE (12/16/2020 1:13 PM CDT) Glucose, POC 200 (H) 70 - 100 MG/DL MAIN LAB Specimen Performing Organization Address City/State/ZIP Code P narendra Number MAIN LAB [address] [place] [address] * POC SODIUM (12/16/2020 12:42 PM CDT) Sodium-POC 143 137 - 147 MMOL/L MAIN LAB Specimen Performing Organization Address City/[facility] Code P narendra Number MAIN LAB [address] [place] [address] * POC POTASSIUM (12/16/2020 12:42 PM CDT) Potassium-POC 3.3 (L) 3.5 - 5.1 MMOL/L MAIN LAB Specimen Performing Organization Address City/[facility] Code P narendra Number MAIN LAB [address] [place] [address] * POC HEMATOCRIT (12/16/2020 12:42 PM CDT) Hemoglobin POC 9.5 (L) 12.0 - 15.0 GM/DL MAIN LAB Hematocrit POC 28.0 (L) 36 - 45 % MAIN LAB Specimen Performing Organization Address [facility] P narendra Number MAIN LAB [address] [place] [address] * POC BLOOD GAS ARTERIAL (12/16/2020 12:42 PM CDT) PH-ART-POC 7.31 (L) 7.35 - 7.45 MAIN LAB [id number] 50 (H) 35 - 45 MMHG KU MAIN LAB PO2-ART-POC 327 (H) 80 - 100 MMHG KU MAIN LAB Base 1.0 MMOL/L MAIN LAB Def-ART-POC O2 Sat-ART-POC 100.0 (H) 95 - 99 % MAIN LAB Bicarbonate-ART 25.1 21 - 28 MMOL/L MAIN LAB -POC Specimen Performing Organization Address [facility]/ZIP Code P narendra Number MAIN LAB [address] [place] [address] * POC GLUCOSE (12/16/2020 12:37 PM CDT) Glucose, POC 215 (H) 70 - 100 MG/DL MAIN LAB Specimen Performing Organization Address [facility]/ZIP Code P narendra Number MAIN LAB [address] [place] [address] * LINE PLCMT 1V CXR (12/16/2020 12:30 PM CDT) Specimen [...] 12/16/2020 1:11 PM. Narrative Performed At [facility] 1 CXR KU RAD RESULTS INDICATION: [...] Results - 12/16/2020 5:05 PM CDT [facility] 1 CXR INDICATION: ET Tube and Line Placement. [...] on 12/16/2020 1:11 PM. Performing Organization Address City/[facility]/ZIP Code P narendra Number KU RAD RESULTS * MAGNESIUM (12/16/2020 12:30 PM CDT) Magnesium 2.7 (H) 1.6 - 2.6 mg/dL KU MAIN LAB Specimen Blood Performing Organization Address [facility] P narendra Number KU MAIN LAB [address] [place] [address] * PTT (APTT) (12/16/2020 12:30 PM CDT) APTT 28.5 24.0 - 36.5 SEC KU MAIN LAB Specimen Blood Performing Organization Address [facility] P narendra Number KU MAIN LAB [address] [place] [address] * PROTIME INR (PT) (12/16/2020 12:30 PM CDT) INR 1.2 0.8 - 1.2 KU MAIN LAB Specimen Blood Performing Organization Address [facility] P narendra Number KU MAIN LAB [address] [place] [address] * BASIC METABOLIC PANEL (12/16/2020 12:30 PM CDT) Sodium 142 137 - 147 MMOL/L KU MAIN LAB Potassium 3.3 (L) 3.5 - 5.1 MMOL/L KU MAIN LAB Chloride 108 98 - 110 MMOL/L KU MAIN LAB CO2 22 21 - 30 MMOL/L KU MAIN LAB Anion Gap 12 3 - 12 KU MAIN LAB Glucose 210 (H) 70 - 100 MG/DL KU MAIN LAB Blood Urea 14 7 - 25 MG/DL KU MAIN LAB Nitrogen Creatinine 0.84 0.4 - 1.00 MG/DL KU MAIN LAB Calcium 8.5 8.5 - 10.6 MG/DL KU MAIN LAB eGFR Non >60 >60 mL/min KU MAIN LAB Comment: [place] The eGFR is not validated f or use in drug dosing adjustments. Continue to use estimated creatinine clearance per dosing reference text. Please contact the Clinical Pharmacist for questions. eGFR >60 >60 mL/min KU MAIN LAB [place] Comment: The eGFR is not validated for use in drug dosing adjustments. Continue to use estimated creatinine clearance per dosing reference text. Please contact the Clinical Pharmacist for questions. Specimen Blood Performing Organization Address City/[facility]/ZIP Code P narendra Number KU MAIN LAB [address] [place] [address] * CBC (12/16/2020 12:30 PM CDT) White Blood 21.8 (H) 4.5 - 11.0 K/UL KU MAIN LAB Cells RBC 3.13 (L) 4.0 - 5.0 M/UL KU MAIN LAB Hemoglobin 9.7 (L) 12.0 - 15.0 GM/DL KU MAIN LAB Hematocrit 28.2 (L) 36 - 45 % KU MAIN LAB MCV 90.1 80 - 100 FL KU MAIN LAB MCH 31.2 26 - 34 PG KU MAIN LAB MCHC 34.6 32.0 - 36.0 G/DL KU MAIN LAB RDW 14.1 11 - 15 % KU MAIN LAB Platelet Count 227 150 - 400 K/UL KU MAIN LAB MPV 8.5 7 - 11 FL KU MAIN LAB Specimen Blood Performing Organization Address City/[facility] P narendra Number KU MAIN LAB [address] [place] [address] * ACTIVATED CLOTTING TIME [facility] (12/16/2020 11:17 AM CDT) Activated 145 s KU MAIN LAB Clotting Time [facility] Specimen Performing Organization Address City/[facility] P narendra Number KU MAIN LAB [address] [place] [address] * POC IONIZED CALCIUM (12/16/2020 11:17 AM CDT) Ionized 1.27 1.0 - 1.3 MMOL/L KU MAIN LAB Calcium-POC Specimen Performing Organization Address City/[facility] Code P narendra Number KU MAIN LAB [address] [place] [phone] * POC SODIUM (12/16/2020 11:17 AM CDT) Sodium-POC 141 137 - 147 MMOL/L KU MAIN LAB Specimen Performing Organization Address City/[facility]/ZIP Code P narendra Number KU MAIN LAB [address] [place] [address] * POC POTASSIUM (12/16/2020 11:17 AM CDT) Potassium-POC 3.9 3.5 - 5.1 MMOL/L MAIN LAB Specimen Performing Organization Address City/[facility] Code P narendra Number MAIN LAB [address] [place] [address] * POC HEMATOCRIT (12/16/2020 11:17 AM CDT) Hemoglobin POC 8.5 (L) 12.0 - 15.0 GM/DL MAIN LAB Hematocrit POC 25.0 (L) 36 - 45 % MAIN LAB Specimen Performing Organization Address City/[facility]/ZIP Code P narendra Number MAIN LAB [address] [place] [address] * POC BLOOD GAS ARTERIAL (12/16/2020 11:17 AM CDT) PH-ART-POC 7.41 7.35 - 7.45 MAIN LAB [id number] 44 35 - 45 MMHG MAIN LAB PO2-ART-POC 284 (H) 80 - 100 MMHG MAIN LAB Base Ex-ART-POC 3.0 MMOL/L MAIN LAB O2 Sat-ART-POC 100.0 (H) 95 - 99 % MAIN LAB Bicarbonate-ART 27.8 21 - 28 MMOL/L MAIN LAB -POC Specimen Performing Organization Address [facility] Code P narendra Number MAIN LAB [address] [place] [address] * POC GLUCOSE (12/16/2020 11:15 AM CDT) Glucose, POC 208 (H) 70 - 100 MG/DL MAIN LAB Specimen Performing Organization Address City/[facility]/ZIP Code P narendra Number MAIN LAB [address] [place] [address] * POC IONIZED CALCIUM (12/16/2020 10:51 AM CDT) Ionized 1.58 (H) 1.0 - 1.3 MMOL/L MAIN LAB Calcium-POC Specimen Performing Organization Address [facility]/ZIP Code P narendra Number MAIN LAB [address] [place] [address] * POC SODIUM (12/16/2020 10:51 AM CDT) Sodium-POC 139 137 - 147 MMOL/L KU MAIN LAB Specimen Performing Organization Address [facility] P narendra Number MAIN LAB [address] [place] [address] * POC POTASSIUM (12/16/2020 10:51 AM CDT) Potassium-POC 4.6 3.5 - 5.1 MMOL/L KU MAIN LAB Specimen Performing Organization Address [facility] P narendra Number KU MAIN LAB [address] [place] [address] * POC HEMATOCRIT (12/16/2020 10:51 AM CDT) Hemoglobin POC 7.8 (L) 12.0 - 15.0 GM/DL MAIN LAB Hematocrit POC 23.0 (L) 36 - 45 % MAIN LAB Specimen Performing Organization Address [facility] P narendra Number MAIN LAB [address] [place] [address] * POC BLOOD GAS ARTERIAL (12/16/2020 10:51 AM CDT) PH-ART-POC 7.45 7.35 - 7.45 MAIN LAB [id number] 44 35 - 45 MMHG MAIN LAB PO2-ART-POC 538 (H) 80 - 100 MMHG MAIN LAB Base Ex-ART-POC 6.0 MMOL/L MAIN LAB O2 Sat-ART-POC 100.0 (H) 95 - 99 % MAIN LAB Bicarbonate-ART 30.1 (H) 21 - 28 MMOL/L KU MAIN LAB -POC Specimen Performing Organization Address [facility] P narendra Number MAIN LAB [address] [place] [address] * ACTIVATED CLOTTING TIME [facility] (12/16/2020 10:50 AM CDT) Activated 475 s MAIN LAB Clotting Time [facility] Specimen Performing Organization Address [facility] [facility] P narendra Number MAIN LAB [address] [place] [address] * POC GLUCOSE (12/16/2020 10:48 AM CDT) Glucose, POC 170 (H) 70 - 100 MG/DL MAIN LAB Specimen Performing Organization Address City/[facility]/ZIP Code P narendra Number KU MAIN LAB [address] [place] [address] * POC IONIZED CALCIUM (12/16/2020 10:17 AM CDT) Ionized 1.05 1.0 - 1.3 MMOL/L KU MAIN LAB Calcium-POC Specimen Performing Organization Address [facility] P narendra Number KU MAIN LAB [address] [place] [address] * POC SODIUM (12/16/2020 10:17 AM CDT) Sodium-POC 138 137 - 147 MMOL/L KU MAIN LAB Specimen Performing Organization Address [facility] P narendra Number MAIN LAB [address] [place] [address] * POC POTASSIUM (12/16/2020 10:17 AM CDT) Potassium-POC 5.1 3.5 - 5.1 MMOL/L MAIN LAB Specimen Performing Organization Address [facility] P narendra Number MAIN LAB [address] [place] [address] * POC HEMATOCRIT (12/16/2020 10:17 AM CDT) Hemoglobin POC 8.5 (L) 12.0 - 15.0 GM/DL KU MAIN LAB Hematocrit POC 25.0 (L) 36 - 45 % KU MAIN LAB Specimen Performing Organization Address [facility] P narendra Number MAIN LAB [address] [place] [id number] * POC BLOOD GAS ARTERIAL (12/16/2020 10:17 AM CDT) PH-ART-POC 7.52 (H) 7.35 - 7.45 KU MAIN LAB [id number] 38 35 - 45 MMHG KU MAIN LAB PO2-ART-POC 584 (H) 80 - 100 MMHG KU MAIN LAB Base Ex-ART-POC 8.0 MMOL/L KU MAIN LAB O2 Sat-ART-POC 100.0 (H) 95 - 99 % KU MAIN LAB Bicarbonate-ART 30.7 (H) 21 - 28 MMOL/L KU MAIN LAB -POC Specimen Performing Organization Address [facility] P narendra Number MAIN LAB [address] [place] [address] * ACTIVATED CLOTTING TIME HMS (12/16/2020 10:16 AM CDT) Activated 544 s KU MAIN LAB Clotting Time HMS Specimen Performing Organization Address City/[facility] Code P narendra Number MAIN LAB [address] [place] [address] * POC GLUCOSE (12/16/2020 10:15 AM CDT) Glucose, POC 167 (H) 70 - 100 MG/DL KU MAIN LAB Specimen Performing Organization Address City/[facility] Code P narendra Number KU MAIN LAB [address] [place] [address] * ACTIVATED CLOTTING TIME HMS (12/16/2020 9:28 AM CDT) Activated >600 s MAIN LAB Clotting Time HMS Specimen Performing Organization Address [facility] P narendra Number MAIN LAB [address] [place] [address] * POC GLUCOSE (12/16/2020 9:26 AM CDT) Glucose, POC 191 (H) 70 - 100 MG/DL MAIN LAB Specimen Performing Organization Address [facility] P narendra Number MAIN LAB [address] [place] [address] * POC IONIZED CALCIUM (12/16/2020 8:07 AM CDT) Ionized 1.26 1.0 - 1.3 MMOL/L MAIN LAB Calcium-POC Specimen Performing Organization Address [facility] P narendra Number MAIN LAB [address] [place] [address] * POC SODIUM (12/16/2020 8:07 AM CDT) Sodium-POC 139 137 - 147 MMOL/L MAIN LAB Specimen Performing Organization Address [facility] P narendra Number MAIN LAB [address] [place] [address] * POC POTASSIUM (12/16/2020 8:07 AM CDT) Potassium-POC 3.8 3.5 - 5.1 MMOL/L MAIN LAB Specimen Performing Organization Address [facility] Code P narendra Number MAIN LAB [address] [place] [address] * POC HEMATOCRIT (12/16/2020 8:07 AM CDT) Hemoglobin POC 11.2 (L) 12.0 - 15.0 GM/DL MAIN LAB Hematocrit POC 33.0 (L) 36 - 45 % KU MAIN LAB Specimen Performing Organization Address [facility] P narendra Number MAIN LAB [address] [place] [address] * POC BLOOD GAS ARTERIAL (12/16/2020 8:07 AM CDT) PH-ART-POC 7.44 7.35 - 7.45 MAIN LAB [id number] 40 35 - 45 MMHG KU MAIN LAB PO2-ART-POC 502 (H) 80 - 100 MMHG KU MAIN LAB Base Ex-ART-POC 3.0 MMOL/L MAIN LAB O2 Sat-ART-POC 100.0 (H) 95 - 99 % MAIN LAB Bicarbonate-ART 27.1 21 - 28 MMOL/L MAIN LAB -POC Specimen Performing Organization Address City/[facility] Code P narendra Number MAIN LAB [address] [place] [id number] * BASELINE ACTIVATED CLOTTING TIME HMS (12/16/2020 8:06 AM CDT) Baseline 166 s MAIN LAB Activated Clotting Time [facility] Specimen Performing Organization Address City/[facility] Code P narendra Number MAIN LAB [address] [place] [address] * POC GLUCOSE (12/16/2020 8:04 AM CDT) Glucose, POC 173 (H) 70 - 100 MG/DL MAIN LAB Specimen Performing Organization Address City/[facility] Code P narendra Number MAIN LAB [address] [place] [address] * POC GLUCOSE (12/16/2020 6:34 AM CDT) Glucose, POC 165 (H) 70 - 100 MG/DL MAIN LAB Specimen Performing Organization Address City/[facility] Code P narendra Number MAIN LAB [address] [place] [address] * PTT (APTT) (12/16/2020 5:33 AM CDT) APTT 117.1 (H) 24.0 - 36.5 SEC KU MAIN LAB Specimen Blood Performing Organization Address City/[facility]/ZIP Code P narendra Number KU MAIN LAB [address] [place] [address] * PROTIME INR (PT) (12/16/2020 5:33 AM CDT) INR 1.2 0.8 - 1.2 KU MAIN LAB Specimen Blood Performing Organization Address City/[facility]/ZIP Code P narendra Number KU MAIN LAB [address] [place] [address] * COMPREHENSIVE METABOLIC PANEL (12/16/2020 5:33 AM CDT) Sodium 138 137 - 147 MMOL/L KU [...] >60 >60 mL/min KU MAIN LAB Comment: [place] The eGFR is not validated f or use in drug dosing adjustments. Continue to use estimated creatinine clearance per dosing reference text. Please contact the Clinical Pharmacist for questions. eGFR >60 >60 mL/min KU MAIN LAB [place] Comment: The eGFR is not validated for use in drug dosing adjustments. Continue to use estimated creatinine clearance per dosing reference text. Please contact the Clinical Pharmacist for questions. Specimen Blood Performing Organization Address City/[facility]/ZIP Code P narendra Number KU MAIN LAB [address] [place] [address] * CBC AND DIFF (12/16/2020 5:33 AM CDT) Pathologist [facility] White Blood 8.2 4.5 - 11.0 K/UL [...] Absolute 0.90 (H) 0 - 0.80 K/UL MAIN LAB Monocyte Count Absolute 0.30 0 - 0.45 K/UL KU MAIN LAB Eosinophil Count Absolute 0.00 0 - 0.20 K/UL KU MAIN LAB Basophil Count Specimen Blood Performing Organization Address City/[facility]/ZIP Code P narendra Number KU MAIN LAB [address] [place] [address] * PTT (APTT) (12/15/2020 6:47 PM CDT) Pathologist [facility] APTT 41.1 (H) 24.0 - 36.5 SEC KU MAIN LAB Specimen Blood Performing Organization Address City/[facility]/ZIP Code P narendra Number KU MAIN LAB [address] [place] [address] * POC GLUCOSE (12/15/2020 5:05 PM CDT) Pathologist [facility] Glucose, POC 142 (H) 70 - 100 MG/DL KU MAIN LAB Specimen Performing Organization Address [facility]/ZIP Code P narendra Number KU MAIN LAB [address] [place] [address] * PTT (APTT) (12/15/2020 1:26 PM CDT) APTT 50.8 (H) 24.0 - 36.5 SEC KU MAIN LAB Specimen Blood Performing Organization Address City/State/ZIP Code P narendra Number KU MAIN LAB [address] [place] [address] * POC GLUCOSE (12/15/2020 10:51 AM CDT) Glucose, POC 188 (H) 70 - 100 MG/DL KU MAIN LAB Specimen Performing Organization Address City/[facility]/ZIP Code P narendra Number KU MAIN LAB [address] [place] [address] * CT CHEST WO CONTRAST (12/15/2020 10:31 AM CDT) Specimen Impressions Performed At 1. Dense coronary artery calcifications with normal h eart size. KU RAD RESULTS 2. Scattered pleural parenchymal scarri ng. No acute pulmonary abnormality. 3. Mild hepatic steatosis. 4. Small hiatal hernia. Finalized by Sunday Bragg MD on 021 11:25 AM. Dictated by Sunday Bragg MD [...] on 12/15/2020 11:21 AM. Performing Organization Address [facility]/ZIP Code P narendra Number KU RAD RESULTS * POC GLUCOSE (12/15/2020 8:00 AM CDT) Glucose, POC 147 (H) 70 - 100 MG/DL KU MAIN LAB Specimen Performing Organization Address [facility] P narendra Number MAIN LAB [address] [place] [address] * PTT (APTT) (12/15/2020 4:39 AM CDT) APTT 99.7 (H) 24.0 - 36.5 SEC MAIN LAB Specimen Blood Performing Organization Address [facility] P narendra Number MAIN LAB [address] [place] [address] * PROTIME INR (PT) (12/15/2020 4:39 AM CDT) Pathologist [facility] INR 1.2 0.8 - 1.2 KU MAIN LAB Specimen Blood Performing Organization Address City/[facility]/ZIP [facility] P narendra Number KU MAIN LAB [address] [place] [phone] * COMPREHENSIVE METABOLIC PANEL (12/15/2020 4:39 AM CDT) Pathologist [facility] Sodium 139 137 - 147 MMOL/L KU MAIN LAB Potassium 4.2 3.5 - 5.1 MMOL/L K[facility] MAIN LAB Chloride 102 98 - 110 MMOL/L K[facility] MAIN LAB Glucose 154 (H) 70 - 100 MG/DL K[facility] MAIN LAB Blood Urea 16 7 - 25 MG/DL KU MAIN LAB Nitrogen Creatinine 0.69 0.4 - 1.00 MG/DL K[facility] MAIN LAB Calcium 9.8 8.5 - 10.6 MG/DL KU MAIN LAB Total Protein 6.9 6.0 - 8.0 G/DL K[facility] MAIN LAB Total Bilirubin 0.7 0.3 - 1.2 MG/DL K[facility] MAIN LAB Albumin 4.0 3.5 - 5.0 G/DL K[facility] MAIN LAB Alk Phosphatase 64 25 - 110 U/L KU MAIN LAB AST (SGOT) 17 7 - 40 U/L KU MAIN LAB CO2 26 21 - 30 MMOL/L K[facility] MAIN LAB ALT (SGPT) 12 7 - 56 U/L K[facility] MAIN LAB Anion Gap 11 3 - 12 KU MAIN LAB eGFR Non >60 >60 mL/min K[facility] MAIN LAB Comment: [place] The eGFR is not validated f or use in drug dosing adjustments. Continue to use estimated creatinine clearance per dosing reference text. Please contact the Clinical Pharmacist for questions. eGFR >60 >60 mL/min KU MAIN LAB [place] Comment: The eGFR is not validated for use in drug dosing adjustments. Continue to use estimated creatinine clearance per dosing reference text. Please contact the Clinical Pharmacist for questions. Specimen Blood Performing Organization Address City/State/ZIP Code P narendra Number KU MAIN LAB [address] [place] [address] * CBC AND DIFF (12/15/2020 4:39 AM CDT) Pathologist [facility] White Blood 9.5 4.5 - 11.0 K/UL KU MAIN LAB Cells RBC 3.95 (L) 4.0 - 5.0 M/UL KU MAIN LAB Hemoglobin 12.5 12.0 - 15.0 GM/DL KU MAIN LAB Hematocrit 35.6 (L) 36 - 45 % KU MAIN LAB MCV 89.9 80 - 100 FL KU MAIN LAB MCH 31.5 26 - 34 PG KU MAIN LAB MCHC 35.0 32.0 - 36.0 G/DL KU MAIN LAB RDW 14.2 11 - 15 % KU MAIN LAB Platelet Count 237 150 - 400 K/UL KU MAIN LAB MPV 8.4 7 - 11 FL K[facility] MAIN LAB Neutrophils 63 41 - 77 % K[facility] MAIN LAB Lymphocytes 23 (L) 24 - 44 % K[facility] MAIN LAB Monocytes 10 4 - 12 % K[facility] MAIN LAB Eosinophils 3 0 - 5 % K[facility] MAIN LAB Basophils 1 0 - 2 % K[facility] MAIN LAB Absolute 6.08 1.8 - 7.0 K/UL KU MAIN LAB Neutrophil Count Absolute Lymph 2.13 1.0 - 4.8 K/UL KU MAIN LAB Count Absolute 0.98 (H) 0 - 0.80 K/UL KU MAIN LAB Monocyte Count Absolute 0.23 0 - 0.45 K/UL KU MAIN LAB Eosinophil Count Absolute 0.05 0 - 0.20 K/UL KU MAIN LAB Basophil Count Specimen Blood Performing Organization Address City/State/ZIP Code P narendra Number MAIN LAB [address] [place] [address] * TYPE & CROSSMATCH (12/15/2020 4:39 AM CDT) Units Ordered 4 MAIN LAB Crossmatch 12/18/2020,2359 KU MAIN LAB Expires Record Check FOUND KU MAIN LAB ABO/RH(D) B POS KU MAIN LAB Antibody Screen NEG KU MAIN LAB Electronic YES KU MAIN LAB Crossmatch Unit Number [id number] MAIN LAB Blood Component RBC,ADSOL,LEUKO REDUCED MAIN LAB Type Unit Division 00 MAIN LAB Status OF Unit REL FROM ALLOC MAIN LAB Transfusion OK TO TRANSFUSE MAIN LAB Status Crossmatch COMPATIBLE,ELECTRONIC MAIN LAB Result Unit Number [id number] MAIN LAB Blood Component RBC,ADSOL,LEUKO REDUCED MAIN LAB Type Unit Division 00 MAIN LAB Status OF Unit REL FROM ALLOC MAIN LAB Transfusion OK TO TRANSFUSE MAIN LAB Status Crossmatch COMPATIBLE,ELECTRONIC MAIN LAB Result Unit Number [id number] MAIN LAB Blood Component RBC,ADSOL,LEUKO REDUCED MAIN LAB Type Unit Division 00 MAIN LAB Status OF Unit REL FROM ALLOC MAIN LAB Transfusion OK TO TRANSFUSE MAIN LAB Status Crossmatch COMPATIBLE,ELECTRONIC MAIN LAB Result Unit Number [id number] MAIN LAB Blood Component RBC,ADSOL,LEUKO REDUCED MAIN LAB Type Unit Division 00 KU MAIN LAB Status OF Unit REL FROM ALLOC MAIN LAB Transfusion OK TO TRANSFUSE MAIN LAB Status Crossmatch COMPATIBLE,ELECTRONIC MAIN LAB Result Specimen Blood Performing Organization Address [facility]/ZIP Code P narendra Number MAIN LAB [address] [place] [address] * ECG-SCAN (12/15/2020 12:00 AM CDT) Narrative Performed At This result has an attachment that is n ot available. Ordered by an unspecified provider. * POC GLUCOSE (12/14/2020 10:25 PM CDT) Glucose, POC 139 (H) 70 - 100 MG/DL MAIN LAB Specimen Performing Organization Address [facility] Code P narendra Number MAIN LAB [address] [place] [phone] * PTT (APTT) (12/14/2020 10:00 PM CDT) APTT 68.5 (H) 24.0 - 36.5 SEC MAIN LAB Specimen Blood Performing Organization Address City/[facility]/ZIP Code P narendra Number KU MAIN LAB [address] [place] [address] * POC GLUCOSE (12/14/2020 5:14 PM CDT) Glucose, POC 145 (H) 70 - 100 MG/DL MAIN LAB Specimen Performing Organization Address City/[facility]/ZIP Code P narendra Number KU MAIN LAB [address] [place] [address] * PTT (APTT) (12/14/2020 2:10 PM CDT) APTT 43.9 (H) 24.0 - 36.5 SEC MAIN LAB Specimen Blood Performing Organization Address City/[facility]/ZIP Code P narendra Number MAIN LAB [address] [place] [address] * POC GLUCOSE (12/14/2020 11:24 AM CDT) Glucose, POC 222 (H) 70 - 100 MG/DL KU MAIN LAB Specimen Performing Organization Address [facility] Code P narendra Number KU MAIN LAB [address] [place] [address] * POC GLUCOSE (12/14/2020 7:27 AM CDT) Glucose, POC 149 (H) 70 - 100 MG/DL K[facility] MAIN LAB Specimen Performing Organization Address [facility] P narendra Number KU MAIN LAB [address] [place] [address] * PTT (APTT) (12/14/2020 4:12 AM CDT) APTT 105.9 (H) 24.0 - 36.5 SEC KU MAIN LAB Specimen Blood Performing Organization Address [facility] P narendra Number KU MAIN LAB [address] [place] [address] * PROTIME INR (PT) (12/14/2020 4:12 AM CDT) INR 1.2 0.8 - 1.2 KU MAIN LAB Specimen Blood Performing Organization Address [facility] P narendra Number KU MAIN LAB [address] [place] [address] * COMPREHENSIVE METABOLIC PANEL (12/14/2020 4:12 AM CDT) Sodium 141 137 - 147 MMOL/L KU MAIN LAB Potassium 3.8 3.5 - 5.1 MMOL/L KU MAIN LAB Chloride 102 98 - 110 MMOL/L KU MAIN LAB Glucose 129 (H) 70 - 100 MG/DL KU MAIN LAB Blood Urea 16 7 - 25 MG/DL KU MAIN LAB Nitrogen Creatinine 0.72 0.4 - 1.00 MG/DL KU MAIN LAB Calcium 10.0 8.5 - 10.6 MG/DL KU MAIN LAB Total Protein 7.0 6.0 - 8.0 G/DL KU MAIN LAB Total Bilirubin 0.7 0.3 - 1.2 MG/DL KU MAIN LAB Albumin 3.8 3.5 - 5.0 G/DL KU MAIN LAB Alk Phosphatase 67 25 - 110 U/L KU MAIN LAB AST (SGOT) 18 7 - 40 U/L KU MAIN LAB CO2 24 21 - 30 MMOL/L KU MAIN LAB ALT (SGPT) 10 7 - 56 U/L KU MAIN LAB Anion Gap 15 (H) 3 - 12 KU MAIN LAB eGFR Non >60 >60 mL/min K[facility] MAIN LAB Comment: [place] The eGFR is not validated f or use in drug dosing adjustments. Continue to use estimated creatinine clearance per dosing reference text. Please contact the Clinical Pharmacist for questions. eGFR >60 >60 mL/min KU MAIN LAB [place] Comment: The eGFR is not validated for use in drug dosing adjustments. Continue to use estimated creatinine clearance per dosing reference text. Please contact the Clinical Pharmacist for questions. Specimen Blood Performing Organization Address City/State/ZIP Code P narendra Number KU MAIN LAB [address] [place] [address] * CBC AND DIFF (12/14/2020 4:12 AM CDT) White Blood 6.6 4.5 - 11.0 K/UL KU MAIN LAB Cells RBC 4.11 4.0 - 5.0 M/UL KU MAIN LAB Hemoglobin 12.6 12.0 - 15.0 GM/DL KU MAIN LAB Hematocrit 37.3 36 - 45 % KU MAIN LAB MCV 90.9 80 - 100 FL KU MAIN LAB MCH 30.6 26 - 34 PG KU MAIN LAB MCHC 33.7 32.0 - 36.0 G/DL KU MAIN LAB RDW 14.1 11 - 15 % KU MAIN LAB Platelet Count 238 150 - 400 K/UL KU MAIN LAB MPV 8.9 7 - 11 FL KU MAIN LAB Neutrophils 43 41 - 77 % KU MAIN LAB Lymphocytes 41 24 - 44 % KU MAIN LAB Monocytes 12 4 - 12 % KU MAIN LAB Eosinophils 3 0 - 5 % KU MAIN LAB Basophils 1 0 - 2 % KU MAIN LAB Absolute 2.82 1.8 - 7.0 K/UL KU MAIN LAB Neutrophil Count Absolute Lymph 2.74 1.0 - 4.8 K/UL KU MAIN LAB Count Absolute 0.83 (H) 0 - 0.80 K/UL KU MAIN LAB Monocyte Count Absolute 0.22 0 - 0.45 K/UL KU MAIN LAB Eosinophil Count Absolute 0.04 0 - 0.20 K/UL KU MAIN LAB Basophil Count Specimen Blood Performing Organization Address City/State/ZIP Code P narendra Number KU MAIN LAB [address] [place] [address] * POC GLUCOSE (12/13/2020 9:37 PM CDT) Glucose, POC 146 (H) 70 - 100 MG/DL KU MAIN LAB Specimen Performing Organization Address City/State/ZIP Code P narendra Number KU MAIN LAB [address] [place] [address] * POC GLUCOSE (12/13/2020 5:14 PM CDT) Glucose, POC 151 (H) 70 - 100 MG/DL MAIN LAB Specimen Performing Organization Address City/[facility]/ZIP Code P narendra Number KU MAIN LAB [address] [place] [address] * LIMITED ECHO (12/13/2020 4:49 PM CDT) Pathologist [facility] IVS 0.92 0.6 - 0.9 cm OTHER OUTSIDE LAB LVIDD 6.11 3.8 - 5.2 cm OTHER OUTSIDE LAB LVIDS 5.99 2.2 - 3.5 cm OTHER OUTSIDE LAB PW 0.99 0.6 - 0.9 cm OTHER OUTSIDE LAB Left Ventricle 203.00 46 - 106 mL OTHER OUTSIDE Diastolic LAB Volume Left Ventricle 125 29 - 61 mL OTHER OUTSIDE Diastolic LAB Volume Index Left Ventricle 136.00 14 - 42 mL OTHER OUTSIDE Systolic Volume LAB Left Ventricle 84 8 - 24 mL OTHER OUTSIDE Systolic Volume LAB Index Right 2.17 1.9 - 3.5 cm OTHER OUTSIDE Ventricular Mid LAB Diameter LA size 3.83 2.7 - 3.8 cm OTHER OUTSIDE LAB LA volume 38.75 22 - 52 mL OTHER OUTSIDE LAB Right Atrial 10.26 <18 cm2 OTHER OUTSIDE Area LAB Right Atrial 3.79 2.2 - 2.8 cm OTHER OUTSIDE Major Dimension LAB Right 3.23 2.5 - 4.1 cm OTHER OUTSIDE Ventricular LAB Basal Diameter Sinus 3.26 2.4 - 3.6 cm OTHER OUTSIDE LAB Ascending aorta 3.67 cm OTHER OUTSIDE LAB BSA 1.62 m2 OTHER OUTSIDE LAB FS 1.96 28 - 44 % OTHER OUTSIDE LAB EF 3.34 % OTHER OUTSIDE LAB LV mass 240 67 - 162 g OTHER OUTSIDE LAB RWT 0.32 <=0.42 OTHER OUTSIDE LAB Left Atrium 23.92 16 - 34 OTHER OUTSIDE Index LAB Cardiology Siemens [id number] OTHER OUTSIDE Ultrasound LAB Machine Left Ventricle 148 43 - 95 g/m2 OTHER OUTSIDE Mass Index LAB RA PRESSURE 3 OTHER OUTSIDE LAB CV ECHO JOE Clark RDCS OTHER OUTSIDE CEMENT BASED MATERIALS PUMP TENDER LAB ECHO EF 30 % OTHER OUTSIDE LAB Specimen Narrative Performed At OTHER OUTSIDE LAB 1. Mildly dilated left ventricle with moderate to severely reduced systolic function. LVEF is about 25 t o 30% 2. Regional wall motion of normalities as described in the diagram 3. Unable to assess diastolic function in this 2D only study 4. RV is normal size with normal systol ic function 5. Both atria are normal size 6. Normal central venous pressure 7. Tightly structurally the aortic mitr al and tricuspid valve appear mostly unremarkable. Valvular functio n cannot be ascertained 8. No pericardial effusion No significant change compared to prior study from 3 days ago. Performing Organization Address City/State/ZIP Code P narendra Number OTHER OUTSIDE LAB * POC GLUCOSE (12/13/2020 11:47 AM CDT) Glucose, POC 154 (H) 70 - 100 MG/DL KU MAIN LAB Specimen Performing Organization Address City/State/ZIP Code P narendra Number KU MAIN LAB [address] [place] [address] * VIABILITY STUDY (REST AND 4 HOUR DELAY) MPI REST TEST (12/13/2020 8:51 AM CDT) Rest Dose 3.13 mCi OTHER OUTSIDE LAB CV NUCLEAR BMI 24.03 kg/m2 OTHER OUTSIDE LAB MPI EF 20 % OTHER OUTSIDE LAB LV volume 139 mL OTHER OUTSIDE LAB Study Number [id number] OTHER OUTSIDE LAB Nuclear In aggregate the current study OTHER OUTSIDE Cardiology is high risk in regards to LAB Mortality Risk predicted annual cardiovascular mortality rate. Specimen Narrative Performed At OTHER OUTSIDE LAB Nuclear Report Cardiology: [facility] are Division of Nuclear Cardiac Imaging Examination Report EXAMINATION: Resting and delayed (4 h our and/or 24 hour) [id number] Chloride single photon emission compute d tomography (SPECT) for myocardial perfusion and viability imaging. Date of Study: 12/12/20 Study#: [facility] Billing ID: [id number] Referring Physician: Requested by: Rhys Jacob PA-C BMI: 24.03 kg/m2 INDICATIONS FOR STUDY (HISTORY): Villaf[place] ry artery disease, history of myocardial infarction and severe cardio myopathy. The patient is being evaluated prior to coronary bypass regan ting and viability assessment is requested. PROCEDURAL DETAILS: At rest approxima tely 3.13 mCi of [id number] Chloride was injected intravenously. Planar and gated [...] The study was read in conjunction with CAPRI Haley, social sciences department chair. Performing Organization Address City/State/ZIP Code P narendra Number OTHER OUTSIDE LAB * POC GLUCOSE (12/13/2020 7:11 AM CDT) Glucose, POC 157 (H) 70 - 100 MG/DL KU MAIN LAB Specimen Performing Organization Address City/[facility]/ZIP Code P narendra Number MAIN LAB [address] [place] [address] * CBC (12/13/2020 4:06 AM CDT) White Blood 6.1 4.5 - 11.0 K/UL KU MAIN LAB Cells RBC 3.97 (L) 4.0 - 5.0 M/UL KU MAIN LAB Hemoglobin 12.5 12.0 - 15.0 GM/DL KU MAIN LAB Hematocrit 35.9 (L) 36 - 45 % KU MAIN LAB MCV 90.5 80 - 100 FL KU MAIN LAB MCH 31.6 26 - 34 PG KU MAIN LAB MCHC 34.9 32.0 - 36.0 G/DL KU MAIN LAB RDW 14.1 11 - 15 % KU MAIN LAB Platelet Count 212 150 - 400 K/UL KU MAIN LAB MPV 8.5 7 - 11 FL KU MAIN LAB Specimen Performing Organization Address [facility] P narendra Number KU MAIN LAB [address] [place] [address] * COMPREHENSIVE METABOLIC PANEL (12/13/2020 4:06 AM CDT) Sodium 140 137 - 147 MMOL/L KU MAIN LAB Potassium 3.8 3.5 - 5.1 MMOL/L KU MAIN LAB Chloride 101 98 - 110 MMOL/L KU MAIN LAB Glucose 139 (H) 70 - 100 MG/DL KU MAIN LAB Blood Urea 12 7 - 25 MG/DL KU MAIN LAB Nitrogen Creatinine 0.67 0.4 - 1.00 MG/DL KU MAIN LAB Calcium 9.2 8.5 - 10.6 MG/DL KU MAIN LAB Total Protein 6.9 6.0 - 8.0 G/DL KU MAIN LAB Total Bilirubin 0.7 0.3 - 1.2 MG/DL KU MAIN LAB Albumin 3.8 3.5 - 5.0 G/DL KU MAIN LAB Alk Phosphatase 58 25 - 110 U/L KU MAIN LAB AST (SGOT) 15 7 - 40 U/L KU MAIN LAB CO2 29 21 - 30 MMOL/L KU MAIN LAB ALT (SGPT) 9 7 - 56 U/L KU MAIN LAB Anion Gap 10 3 - 12 KU MAIN LAB eGFR Non >60 >60 mL/min KU MAIN LAB Comment: [place] The eGFR is not validated f or use in drug dosing adjustments. Continue to use estimated creatinine clearance per dosing reference text. Please contact the Clinical Pharmacist for questions. eGFR >60 >60 mL/min [facility] [place] Comment: The eGFR is not validated for use in drug dosing adjustments. Continue to use estimated creatinine clearance per dosing reference text. Please contact the Clinical Pharmacist for questions. Specimen Performing Organization Address [facility] P narendra Number [facility] [address] [place] [address] * PTT (APTT) (12/13/2020 4:06 AM CDT) APTT 67.8 (H) 24.0 - 36.5 SEC [facility] Specimen Blood Performing Organization Address [facility] Code P narendra Number [facility] [address] [place] [address] * PROTIME INR (PT) (12/13/2020 4:06 AM CDT) INR 1.2 0.8 - 1.2 MAIN LAB Specimen Blood Performing Organization Address [facility] Code P narendra Number [facility] [address] [place] [address] * POC GLUCOSE (12/12/2020 9:48 PM CDT) Glucose, POC 125 (H) 70 - 100 MG/DL [facility] Specimen Performing Organization Address [facility] P narendra Number MAIN LAB [address] [place] [address] * POC GLUCOSE (12/12/2020 5:09 PM CDT) Glucose, POC 128 (H) 70 - 100 MG/DL [facility] Specimen Performing Organization Address [facility] Code P narendra Number [facility] [address] [place] [address] * POC GLUCOSE (12/12/2020 12:30 PM CDT) Glucose, POC 150 (H) 70 - 100 MG/DL [facility] Specimen Performing Organization Address [facility] P narendra Number [facility] [address] [place] [address] * POC GLUCOSE (12/12/2020 7:32 AM CDT) Glucose, POC 157 (H) 70 - 100 MG/DL [facility] Specimen Performing Organization Address [facility] P narendra Number MAIN LAB [address] [place] [address] * COMPREHENSIVE METABOLIC PANEL (12/12/2020 4:00 AM CDT) Sodium 140 137 - 147 MMOL/L [facility] Potassium 4.0 3.5 - 5.1 MMOL/L [facility] Chloride 103 98 - 110 MMOL/L [facility] Glucose 158 (H) 70 - 100 MG/DL [facility] Blood Urea 13 7 - 25 MG/DL [facility] Nitrogen Creatinine 0.66 0.4 - 1.00 MG/DL [facility] Calcium 9.0 8.5 - 10.6 MG/DL [facility] Total Protein 6.9 6.0 - 8.0 G/DL [facility] Total Bilirubin 0.7 0.3 - 1.2 MG/DL [facility] Albumin 3.7 3.5 - 5.0 G/DL [facility] Alk Phosphatase 60 25 - 110 U/L [facility] AST (SGOT) 17 7 - 40 U/L [facility] CO2 28 21 - 30 MMOL/L [facility] ALT (SGPT) 12 7 - 56 U/L [facility] Anion Gap 9 3 - 12 [facility] eGFR Non >60 >60 mL/min [facility] Comment: [place] The eGFR is not validated f or use in drug dosing adjustments. Continue to use estimated creatinine clearance per dosing reference text. Please contact the Clinical Pharmacist for questions. eGFR >60 >60 mL/min [facility] [place] Comment: The eGFR is not validated for use in drug dosing adjustments. Continue to use estimated creatinine clearance per dosing reference text. Please contact the Clinical Pharmacist for questions. Specimen Blood Performing Organization Address City/State/ZIP Code P narendra Number [facility] [address] [place] [address] * CBC AND DIFF (12/12/2020 4:00 AM CDT) White Blood 7.6 4.5 - 11.0 K/UL [facility] Cells RBC 3.94 (L) 4.0 - 5.0 M/UL [facility] Hemoglobin 12.3 12.0 - 15.0 GM/DL [facility] Hematocrit 35.2 (L) 36 - 45 % [facility] MCV 89.4 80 - 100 FL [facility] MCH 31.4 26 - 34 PG [facility] MCHC 35.1 32.0 - 36.0 G/DL [facility] RDW 14.2 11 - 15 % [facility] Platelet Count 180 150 - 400 K/UL [facility] MPV 8.6 7 - 11 FL [facility] Neutrophils 61 41 - 77 % [facility] Lymphocytes 22 (L) 24 - 44 % [facility] Monocytes 14 (H) 4 - 12 % [facility] Eosinophils 2 0 - 5 % [facility] Basophils 1 0 - 2 % [facility] Absolute 4.66 1.8 - 7.0 K/UL [facility] Neutrophil Count Absolute Lymph 1.65 1.0 - 4.8 K/UL MAIN LAB Count Absolute 1.06 (H) 0 - 0.80 K/UL MAIN LAB Monocyte Count Absolute 0.18 0 - 0.45 K/UL MAIN LAB Eosinophil Count Absolute 0.06 0 - 0.20 K/UL MAIN LAB Basophil Count Specimen Blood Performing Organization Address City/[facility]/ZIP Code P narendra Number MAIN LAB [address] [place] [address] * PTT (APTT) (12/12/2020 4:00 AM CDT) APTT 54.7 (H) 24.0 - 36.5 SEC MAIN LAB Specimen Blood Performing Organization Address [facility] P narendra Number MAIN LAB [address] [place] [address] * PROTIME INR (PT) (12/12/2020 4:00 AM CDT) INR 1.2 0.8 - 1.2 MAIN LAB Specimen Blood Performing Organization Address [facility] P narendra Number MAIN LAB [address] [place] [address] * TROPONIN-I (12/12/2020 4:00 AM CDT) Troponin-I 0.64 (H) 0.0 - 0.05 NG/ML MAIN LAB Specimen Blood Performing Organization Address [facility] P narendra Number MAIN LAB [address] [place] [address] * POC GLUCOSE (12/11/2020 9:47 PM CDT) Glucose, POC 144 (H) 70 - 100 MG/DL MAIN LAB Specimen Performing Organization Address [facility] P narendra Number MAIN LAB [address] [place] [address] * PTT (APTT) (12/11/2020 8:13 PM CDT) APTT 48.6 (H) 24.0 - 36.5 SEC MAIN LAB Specimen Blood Performing Organization Address [facility] Code P narendra Number MAIN LAB [address] [place] [address] * POC GLUCOSE (12/11/2020 5:09 PM CDT) Glucose, POC 179 (H) 70 - 100 MG/DL [facility] Specimen Performing Organization Address [facility] Code P narendra Number [facility] [address] [place] [address] * PTT (APTT) (12/11/2020 12:30 PM CDT) APTT 40.2 (H) 24.0 - 36.5 SEC [facility] Specimen Blood Performing Organization Address City/[facility] Code P narendra Number [facility] [address] [place] [id number] * BNP (B-TYPE NATRIURETIC PEPTI) (12/11/2020 12:30 PM CDT) B Type 976.0 (H) 0 - 100 PG/ML [facility] Natriuretic Peptide Specimen Blood Performing Organization Address [facility] Code P narendra Number [facility] [address] [place] [id number] * POC GLUCOSE (12/11/2020 11:20 AM CDT) Glucose, POC 244 (H) 70 - 100 MG/DL [facility] Specimen Performing Organization Address [facility] P narendra Number [facility] [address] [place] [id number] * POC GLUCOSE (12/11/2020 7:36 AM CDT) Glucose, POC 161 (H) 70 - 100 MG/DL [facility] Specimen Performing Organization Address [facility] P narendra Number [facility] [address] [place] [id number] * COMPREHENSIVE METABOLIC PANEL (12/11/2020 4:10 AM CDT) Sodium 138 137 - 147 MMOL/L [facility] Potassium 3.7 3.5 - 5.1 MMOL/L [facility] Chloride 101 98 - 110 MMOL/L [facility] Glucose 152 (H) 70 - 100 MG/DL [facility] Blood Urea 14 7 - 25 MG/DL [facility] Nitrogen Creatinine 0.67 0.4 - 1.00 MG/DL [facility] Calcium 9.4 8.5 - 10.6 MG/DL [facility] Total Protein 6.9 6.0 - 8.0 G/DL [facility] Total Bilirubin 1.1 0.3 - 1.2 MG/DL [facility] Albumin 3.8 3.5 - 5.0 G/DL [facility] Alk Phosphatase 59 25 - 110 U/L [facility] AST (SGOT) 19 7 - 40 U/L [facility] CO2 24 21 - 30 MMOL/L [facility] ALT (SGPT) 8 7 - 56 U/L [facility] Anion Gap 13 (H) 3 - 12 MAIN LAB eGFR Non >60 >60 mL/min [facility] Comment: [place] The eGFR is not validated f or use in drug dosing adjustments. Continue to use estimated creatinine clearance per dosing reference text. Please contact the Clinical Pharmacist for questions. eGFR >60 >60 mL/min [facility] [place] Comment: The eGFR is not validated for use in drug dosing adjustments. Continue to use estimated creatinine clearance per dosing reference text. Please contact the Clinical Pharmacist for questions. Specimen Blood Performing Organization Address City/[facility]/ZIP Code P narendra Number [facility] [address] [place] [address] * PTT (APTT) (12/11/2020 4:10 AM CDT) APTT 41.8 (H) 24.0 - 36.5 SEC MAIN LAB Specimen Blood Performing Organization Address City/[facility]/ZIP Code P narendra Number MAIN LAB [address] [place] [address] * PROTIME INR (PT) (12/11/2020 4:10 AM CDT) INR 1.2 0.8 - 1.2 MAIN LAB Specimen Blood Performing Organization Address City/[facility]/ZIP Code P narendra Number [facility] [address] [place] [address] * CBC AND DIFF (12/11/2020 4:10 AM CDT) White Blood 8.6 4.5 - 11.0 K/UL [facility] Cells RBC 4.02 4.0 - 5.0 M/UL [facility] Hemoglobin 12.6 12.0 - 15.0 GM/DL MAIN LAB Hematocrit 36.6 36 - 45 % [facility] MCV 91.1 80 - 100 FL MAIN LAB MCH 31.3 26 - 34 PG MAIN LAB MCHC 34.4 32.0 - 36.0 G/DL MAIN LAB RDW 14.1 11 - 15 % [facility] Platelet Count 161 150 - 400 K/UL MAIN LAB MPV 8.8 7 - 11 FL [facility] Neutrophils 63 41 - 77 % [facility] Lymphocytes 22 (L) 24 - 44 % [facility] Monocytes 14 (H) 4 - 12 % [facility] Eosinophils 1 0 - 5 % [facility] Basophils 0 0 - 2 % [facility] Absolute 5.30 1.8 - 7.0 K/UL [facility] Neutrophil Count Absolute Lymph 1.90 1.0 - 4.8 K/UL [facility] Count Absolute 1.20 (H) 0 - 0.80 K/UL [facility] Monocyte Count Absolute 0.10 0 - 0.45 K/UL [facility] Eosinophil Count Absolute 0.00 0 - 0.20 K/UL [facility] Basophil Count Specimen Blood Performing Organization Address City/[facility]/ZIP Code P narendra Number [facility] [address] [place] [address] * POC GLUCOSE (12/10/2020 9:50 PM CDT) Glucose, POC 214 (H) 70 - 100 MG/DL [facility] Specimen Performing Organization Address City/[facility] Code P narendra Number [facility] [address] [place] [address] * POC GLUCOSE (12/10/2020 5:01 PM CDT) Glucose, POC 171 (H) 70 - 100 MG/DL [facility] Specimen Performing Organization Address City/[facility] P narendra Number MAIN LAB [address] [place] [address] * PV CAROTID ARTERY DUPLEX SCAN (12/10/2020 [...] ECHO PV Turi Wiedner RVT OTHER OUTSIDE CEMENT [employer] PU[facility] TENDER LAB RIGHT ICA/CCA 1.5 m/s OTHER OUTSIDE [...] Number OTHER OUTSIDE LAB * POC GLUCOSE (12/10/2020 11:44 AM CDT) Glucose, POC 154 (H) 70 - 100 MG/DL [facility] Specimen Performing Organization Address City/State/ZIP Code P narendra Number [facility] [address] [place] [address] * PV VEIN MAP ARTERIAL BYPASS GRAFT (12/10/2020 11:39 AM CDT) [facility] CV ECHO PV Turi Jesusmartaner RVT OTHER OUTSIDE CEMENT [employer] PUMP TENDER LAB Cardiology [facility] OTHER OUTSIDE Ultrasound [...] + DOPPLER ECHO (12/10/2020 10:19 AM CDT) [facility] IVS 1.10 0.6 - 0.9 cm OTHER [...] CV ECHO PV Dionna Bishop OTHER OUTSIDE CEMENT [employer] MAT[employer] PU[facility] TENDER LAB Cardiology [place] [facility] OTHER OUTSIDE Ultrasound [...] Number OTHER OUTSIDE LAB * POC GLUCOSE (12/10/2020 7:22 AM CDT) Glucose, POC 155 (H) 70 - 100 MG/DL [facility] Specimen Performing Organization Address City/[facility] Code P narendra Number [facility] [address] [place] [address] * COMPREHENSIVE METABOLIC PANEL (12/10/2020 4:06 AM CDT) Sodium 139 137 - 147 MMOL/L [facility] Potassium 3.8 3.5 - 5.1 MMOL/L [facility] Chloride 101 98 - 110 MMOL/L [facility] Glucose 151 (H) 70 - 100 MG/DL [facility] Blood Urea 16 7 - 25 MG/DL [facility] Nitrogen Creatinine 0.72 0.4 - 1.00 MG/DL [facility] Calcium 9.3 8.5 - 10.6 MG/DL [facility] Total Protein 7.0 6.0 - 8.0 G/DL [facility] Total Bilirubin 1.0 0.3 - 1.2 MG/DL [facility] Albumin 4.0 3.5 - 5.0 G/DL [facility] Alk Phosphatase 62 25 - 110 U/L [facility] AST (SGOT) 26 7 - 40 U/L [facility] CO2 26 21 - 30 MMOL/L [facility] ALT (SGPT) 11 7 - 56 U/L [facility] Anion Gap 12 3 - 12 [facility] eGFR Non >60 >60 mL/min [facility] Comment: [place] The eGFR is not validated f or use in drug dosing adjustments. Continue to use estimated creatinine clearance per dosing reference text. Please contact the Clinical Pharmacist for questions. eGFR >60 >60 mL/min [facility] [place] Comment: The eGFR is not validated for use in drug dosing adjustments. Continue to use estimated creatinine clearance per dosing reference text. Please contact the Clinical Pharmacist for questions. Specimen Blood Performing Organization Address City/[facility]/ZIP Code P narendra Number [facility] [address] [place] [address] * PTT (APTT) (12/10/2020 4:06 AM CDT) APTT 46.9 (H) 24.0 - 36.5 SEC [facility] Specimen Blood Performing Organization Address [facility] P narendra Number [facility] [address] [place] [address] * PROTIME INR (PT) (12/10/2020 4:06 AM CDT) INR 1.1 0.8 - 1.2 [facility] Specimen Blood Performing Organization Address [facility] P narendra Number [facility] [address] [place] [address] * CBC AND DIFF (12/10/2020 4:06 AM CDT) Pathologist [facility] White Blood 9.1 4.5 - 11.0 K/UL [facility] Cells RBC 4.19 4.0 - 5.0 M/UL [facility] Hemoglobin 13.1 12.0 - 15.0 GM/DL [facility] Hematocrit 37.6 36 - 45 % [facility] MCV 89.6 80 - 100 FL [facility] MCH 31.3 26 - 34 PG [facility] MCHC 34.9 32.0 - 36.0 G/DL [facility] RDW 14.0 11 - 15 % [facility] Platelet Count 177 150 - 400 K/UL [facility] MPV 8.3 7 - 11 FL [facility] Neutrophils 59 41 - 77 % [facility] Lymphocytes 26 24 - 44 % [facility] Monocytes 14 (H) 4 - 12 % [facility] Eosinophils 1 0 - 5 % [facility] Basophils 0 0 - 2 % [facility] Absolute 5.33 1.8 - 7.0 K/UL [facility] Neutrophil Count Absolute Lymph 2.37 1.0 - 4.8 K/UL [facility] Count Absolute 1.29 (H) 0 - 0.80 K/UL [facility] Monocyte Count Absolute 0.08 0 - 0.45 K/UL [facility] Eosinophil Count Absolute 0.04 0 - 0.20 K/UL [facility] Basophil Count Specimen Blood Performing Organization Address [facility] P narendra Number [facility] [address] [place] [phone] * POC GLUCOSE (12/09/2020 9:49 PM CDT) Glucose, POC 145 (H) 70 - 100 MG/DL [facility] Specimen Performing Organization Address [facility]/State/ZIP Code P narendra Number [facility] [address] [place] [address] * POC GLUCOSE (12/09/2020 5:05 PM CDT) Glucose, POC 153 (H) 70 - 100 MG/DL [facility] Specimen Performing Organization Address [facility]/ZIP Code P narendra Number [facility] [address] [place] [address] * POC GLUCOSE (12/09/2020 11:45 AM CDT) Glucose, POC 163 (H) 70 - 100 MG/DL [facility] Specimen Performing Organization Address City/[facility]/ZIP Code P narendra Number [facility] [address] [place] [address] * POC GLUCOSE (12/09/2020 8:02 AM CDT) Glucose, POC 144 (H) 70 - 100 MG/DL [facility] Specimen Performing Organization Address [facility] Code P narendra Number [facility] [address] [place] [phone] * TROPONIN-I (12/09/2020 4:41 AM CDT) Troponin-I 4.59 (H) 0.0 - 0.05 NG/ML [facility] Specimen Performing Organization Address [facility] Code P narendra Number [facility] [address] [place] [address] * COMPREHENSIVE METABOLIC PANEL (12/09/2020 4:41 AM CDT) Sodium 138 137 - 147 MMOL/L [facility] Potassium 3.7 3.5 - 5.1 MMOL/L [facility] Chloride 101 98 - 110 MMOL/L [facility] Glucose 147 (H) 70 - 100 MG/DL [facility] Blood Urea 20 7 - 25 MG/DL [facility] Nitrogen Creatinine 0.70 0.4 - 1.00 MG/DL [facility] Calcium 9.3 8.5 - 10.6 MG/DL [facility] Total Protein 6.4 6.0 - 8.0 G/DL [facility] Total Bilirubin 0.9 0.3 - 1.2 MG/DL [facility] Albumin 3.7 3.5 - 5.0 G/DL [facility] Alk Phosphatase 59 25 - 110 U/L [facility] AST (SGOT) 35 7 - 40 U/L [facility] CO2 28 21 - 30 MMOL/L [facility] ALT (SGPT) 13 7 - 56 U/L [facility] Anion Gap 9 3 - 12 [facility] MAIN [facility] eGFR Non >60 >60 mL/min [facility] Comment: [place] The eGFR is not validated f or use in drug dosing adjustments. Continue to use estimated creatinine clearance per dosing reference text. Please contact the Clinical Pharmacist for questions. eGFR >60 >60 mL/min [facility] [place] Comment: The eGFR is not validated for use in drug dosing adjustments. Continue to use estimated creatinine clearance per dosing reference text. Please contact the Clinical Pharmacist for questions. Specimen Blood Performing Organization Address City/State/ZIP Code P narendra Number [facility] [address] [place] [address] * PTT (APTT) (12/09/2020 4:41 AM CDT) APTT 53.6 (H) 24.0 - 36.5 SEC [facility] Specimen Blood Performing Organization Address City/[facility]/ZIP Code P narendra Number [facility] MAIN [facility] [address] [place] [address] * PROTIME INR (PT) (12/09/2020 4:41 AM CDT) INR 1.1 0.8 - 1.2 MAIN LAB Specimen Blood Performing Organization Address City/[facility] P narendra Number [facility]IN [facility] [address] [place] [address] * CBC AND DIFF (12/09/2020 4:41 AM CDT) White Blood 8.7 4.5 - 11.0 K/UL [facility] Cells RBC 4.19 4.0 - 5.0 M/UL [facility] Hemoglobin 12.9 12.0 - 15.0 GM/DL [facility]IN [facility] Hematocrit 37.6 36 - 45 % [facility] MCV 89.8 80 - 100 FL [facility]IN [facility] MCH 30.7 26 - 34 PG [facility] MCHC 34.2 32.0 - 36.0 G/DL MAIN LAB RDW 14.2 11 - 15 % [facility] Platelet Count 184 150 - 400 K/UL MAIN LAB MPV 8.3 7 - 11 FL [facility] Neutrophils 55 41 - 77 % [facility] Lymphocytes 29 24 - 44 % [facility] Monocytes 13 (H) 4 - 12 % [facility] Eosinophils 2 0 - 5 % [facility] Basophils 1 0 - 2 % [facility] Absolute 4.84 1.8 - 7.0 K/UL [facility]IN [facility] Neutrophil Count Absolute Lymph 2.50 1.0 - 4.8 K/UL [facility] Count Absolute 1.13 (H) 0 - 0.80 K/UL [facility]IN [facility] Monocyte Count Absolute 0.14 0 - 0.45 K/UL [facility]IN [facility] Eosinophil Count Absolute 0.04 0 - 0.20 K/UL [facility] Basophil Count Specimen Blood Performing Organization Address City/[facility]/ZIP Code P narendra Number [facility]IN [facility] [address] [place] [address] * POC GLUCOSE (12/08/2020 10:20 PM CDT) Glucose, POC 156 (H) 70 - 100 MG/DL [facility] Specimen Performing Organization Address [facility] Code P narendra Number [facility] MAIN [facility] [address] [place] [address] * POC GLUCOSE (12/08/2020 5:52 PM CDT) Glucose, POC 128 (H) 70 - 100 MG/DL [facility]IN [facility] Specimen Performing Organization Address [facility] P narendra Number [facility]IN [facility] [address] [place] [address] * TROPONIN-I (12/08/2020 3:36 AM CDT) Troponin-I 11.67 (H) 0.0 - 0.05 NG/ML [facility]IN [facility] Specimen Blood Performing Organization Address [facility] P narendra Number [facility]IN [facility] [address] [place] [address] * COMPREHENSIVE METABOLIC PANEL (12/08/2020 3:36 AM CDT) Sodium 143 137 - 147 MMOL/L [facility]IN [facility] Potassium 3.9 3.5 - 5.1 MMOL/L [facility]IN [facility] Chloride 103 98 - 110 MMOL/L [facility] MAIN [facility] Glucose 153 (H) 70 - 100 MG/DL [facility] Blood Urea 18 7 - 25 MG/DL [facility]IN [facility] Nitrogen Creatinine 0.75 0.4 - 1.00 MG/DL [facility]IN [facility] Calcium 9.4 8.5 - 10.6 MG/DL [facility]IN [facility] Total Protein 6.8 6.0 - 8.0 G/DL [facility]IN [facility] Total Bilirubin 0.7 0.3 - 1.2 MG/DL [facility] MAIN [facility] Albumin 3.9 3.5 - 5.0 G/DL [facility] Alk Phosphatase 61 25 - 110 U/L [facility] AST (SGOT) 78 (H) 7 - 40 U/L [facility] CO2 27 21 - 30 MMOL/L [facility] ALT (SGPT) 17 7 - 56 U/L [facility] Anion Gap 13 (H) 3 - 12 K[facility] MAIN LAB eGFR Non >60 >60 mL/min [facility] Comment: [place] The eGFR is not validated f or use in drug dosing adjustments. Continue to use estimated creatinine clearance per dosing reference text. Please contact the Clinical Pharmacist for questions. eGFR >60 >60 mL/min [facility] [place] Comment: The eGFR is not validated for use in drug dosing adjustments. Continue to use estimated creatinine clearance per dosing reference text. Please contact the Clinical Pharmacist for questions. Specimen Blood Performing Organization Address City/State/ZIP Code P narendra Number [facility] MAIN [facility] [address] [place] [address] * PTT (APTT) (12/08/2020 3:36 AM CDT) APTT 47.5 (H) 24.0 - 36.5 SEC [facility] MAIN [facility] Specimen Blood Performing Organization Address City/[facility]/ZIP Code P narendra Number [facility] MAIN [facility] [address] [place] [address] * PROTIME INR (PT) (12/08/2020 3:36 AM CDT) INR 1.1 0.8 - 1.2 MAIN LAB Specimen Blood Performing Organization Address City/[facility]/ZIP Code P narendra Number [facility] MAIN [facility] [address] [place] [address] * CBC AND DIFF (12/08/2020 3:36 AM CDT) White Blood 10.1 4.5 - 11.0 K/UL [facility] MAIN [facility] Cells RBC 4.66 4.0 - 5.0 M/UL [facility] MAIN [facility] Hemoglobin 14.8 12.0 - 15.0 GM/DL [facility] MAIN [facility] Hematocrit 41.8 36 - 45 % [facility] MAIN [facility] MCV 89.7 80 - 100 FL [facility] MAIN [facility] MCH 31.7 26 - 34 PG [facility] MAIN [facility] MCHC 35.4 32.0 - 36.0 G/DL [facility]IN [facility] RDW 14.5 11 - 15 % [facility] MAIN [facility] Platelet Count 201 150 - 400 K/UL [facility]IN [facility] MPV 8.5 7 - 11 FL [facility] MAIN [facility] Neutrophils 63 41 - 77 % [facility] Lymphocytes 24 24 - 44 % [facility] Monocytes 11 4 - 12 % [facility]IN [facility] Eosinophils 1 0 - 5 % [facility] Basophils 1 0 - 2 % [facility] Absolute 6.47 1.8 - 7.0 K/UL [facility] MAIN [facility] Neutrophil Count Absolute Lymph 2.40 1.0 - 4.8 K/UL [facility] Count Absolute 1.12 (H) 0 - 0.80 K/UL [facility]IN [facility] Monocyte Count Absolute 0.07 0 - 0.45 K/UL [facility] MAIN [facility] Eosinophil Count Absolute 0.07 0 - 0.20 K/UL [facility]IN [facility] Basophil Count Specimen Blood Performing Organization Address City/[facility] Code P narendra Number [facility] MAIN [facility] [address] [place] [address] * LIPID PROFILE (12/08/2020 3:36 AM CDT) [...] 130 mg/dL. Specimen Blood Performing Organization Address City/[facility] P narendra Number MAIN LAB [address] [place] [address] * TROPONIN-I (12/08/2020 12:01 AM CDT) Troponin-I 12.99 (H) 0.0 - 0.05 NG/ML [facility] MAIN [facility] Specimen Blood Performing Organization Address City/[facility]/ZIP Code P narendra Number [facility] MAIN [facility] [address] [place] [address] * PANOREX EXAM (12/07/2020 10:46 PM CDT) [...] on 12/08/2020 8:09 AM. Performing Organization Address City/[facility]/ZIP Code P narendra Number K[facility] RAD RESULTS * PTT (APTT) (12/07/2020 10:23 PM CDT) APTT 59.3 (H) 24.0 - 36.5 SEC [facility] MAIN [facility] Specimen Blood Performing Organization Address City/[facility]/ZIP Code P narendra Number [facility] MAIN [facility] [address] [place] [address] * TROPONIN-I (12/07/2020 8:40 PM CDT) Troponin-I 18.63 (H) 0.0 - 0.05 NG/ML [facility] MAIN [facility] Specimen Blood Performing Organization Address [facility] [facility]/ZIP Code P narendra Number [facility] MA[facility] [address] [place] [address] * BEDSIDE PFT (12/07/2020 7:11 PM CDT) FVC-Pre 1.78 L [facility] FVC-%Pred-pre 70 % [facility] FEV1-Pre 1.48 L [facility] FEV1-%Pred-Pre 75 % [facility] FEV1/FVC-Pre 83 % [facility] [id number] 64 % [facility] [id number] 1.35 L/sec [facility] [id number]-%Pred-P 81 % [facility] re Specimen Narrative Performed At This result has an attachment that is n ot available. Performing Organization Address City/State/ZIP Code P narendra Number [facility] PFT MAIN [address] [place], [place] [address] * CHEST SINGLE VIEW (12/07/2020 3:55 PM CDT) Specimen Impressions Performed At Improved patchy bilateral opacities likely improving pulmonary edema. [facility] RESULTS Finalized by Johny Phillips M.D. o n 12/07/2020 4:00 PM. Dictated by Johny Phillips M.D. on 12/07/2020 3: 59 PM. Narrative Performed At CHEST SINGLE VIEW [facility] RESULTS INDICATION: chest pain COMPARISON STUDY: December 06, 2020. FINDINGS: Lungs/Pleura: The lung volume is normal . Improved patchy left greater than right perihilar and basal opacities and septa l lines. No pleural effusion or pneumothorax. Heart and Mediastinum: The cardiomedias tinal silhouette is stable. Cholecystectomy clips. Procedure Note Interface, Radiant Results - 12/07/2020 4:03 PM CDT CHEST SINGLE VIEW INDICATION: chest pain COMPARISON STUDY: December 06, 2020. FINDINGS: Lungs/Pleura: The lung volume is normal. Improved patchy left greater than right perihilar and basal opacities and septal lines. No pleural effusion or pneumothorax. Heart and Mediastinum: The cardiomediastinal silhouette is stable. Cholecystectomy clips. IMPRESSION Improved patchy bilateral opacities likely improving pulmonary edema. Finalized by Johny Phillips M.D. on 12/07/2020 4:00 PM. Dictated by Johny Phillips M.D. on 12/07/2020 3:59 PM. Performing Organization Address City/State/ZIP Code P narendra Number K[facility] RAD RESULTS * BLOOD TYPE CONFIRMATION - ORDER ONLY IF REQUESTED BY LAB (12/07/2020 3:44 PM CDT) ABO/RH(D) B POS [facility] Specimen Lung RML Performing Organization Address [facility] P narendra Number [facility] [address] [place] [address] * POC GLUCOSE (12/07/2020 3:25 PM CDT) Glucose, POC 129 (H) 70 - 100 MG/DL [facility] Specimen Performing Organization Address [facility] P narendra Number [facility] [address] [place] [address] * URINALYSIS, MICROSCOPIC (12/07/2020 3:19 PM CDT) WBCs,UA 0-2 0 - 2 /HPF [facility] RBCs,UA PACKED 0 - 3 /HPF [facility] MucousUA TRACE [facility] Squamous 0-2 0 - 5 [facility] Epithelial Cells Specimen Performing Organization Address [facility] P narendra Number [facility] [address] [place] [address] * URINALYSIS DIPSTICK (12/07/2020 3:19 PM CDT) Color,UA YELLOW [facility] Turbidity,UA CLEAR CLEAR-CLEAR [facility] Specific 1.035 1.003 - 1.035 [facility] [place]-Urine pH,UA 6.0 5.0 - 8.0 [facility] MAIN [...] LAB Acid, UA Specimen Performing Organization Address [facility] P narendra Number [facility] [address] [place] [address] * TSH WITH FREE T4 REFLEX (12/07/2020 3:19 PM CDT) TSH 1.38 0.35 - 5.00 MCU/ML [facility] Specimen Performing Organization Address [facility] Code P narendra Number [facility] [address] [place] [address] * TROPONIN-I (12/07/2020 3:19 PM CDT) Troponin-I >22.90 (H) 0.0 - 0.05 NG/ML [facility] Specimen Performing Organization Address [facility] Code P narendra Number [facility] [address] [place] [address] * PTT (APTT) (12/07/2020 3:19 PM CDT) APTT 32.3 24.0 - 36.5 SEC [facility] Specimen Performing Organization Address [facility] P narendra Number [facility] [address] [place] [address] * PROTIME INR (PT) (12/07/2020 3:19 PM CDT) INR 1.1 0.8 - 1.2 [facility] Specimen Performing Organization Address [facility] P narendra Number [facility] [address] [place] [address] * CBC AND DIFF (12/07/2020 3:19 PM CDT) White Blood 9.3 4.5 - 11.0 K/UL MAIN LAB Cells RBC 4.85 4.0 - 5.0 M/UL MAIN LAB Hemoglobin 15.2 (H) 12.0 - 15.0 GM/DL MAIN LAB Hematocrit 43.8 36 - 45 % MAIN LAB MCV 90.3 80 - 100 FL MAIN LAB MCH 31.3 26 - 34 PG MAIN LAB MCHC 34.7 32.0 - 36.0 G/DL MAIN LAB RDW 14.4 11 - 15 % [facility] Platelet Count 209 150 - 400 K/UL MAIN LAB MPV 8.3 7 - 11 FL MAIN LAB Neutrophils 63 41 - 77 % [facility] Lymphocytes 26 24 - 44 % [facility] Monocytes 10 4 - 12 % [facility] Eosinophils 1 0 - 5 % [facility] Basophils 0 0 - 2 % MAIN LAB Absolute 5.92 1.8 - 7.0 K/UL MAIN LAB Neutrophil Count Absolute Lymph 2.45 1.0 - 4.8 K/UL [facility] Count Absolute 0.88 (H) 0 - 0.80 K/UL [facility] Monocyte Count Absolute 0.05 0 - 0.45 K/UL [facility] Eosinophil Count Absolute 0.02 0 - 0.20 K/UL [facility] Basophil Count Specimen Performing Organization Address City/State/ZIP Code P narendra Number [facility] [address] [place] [address] * HEMOGLOBIN A1C (12/07/2020 3:19 PM CDT) Hemoglobin A1C 5.9 4.0 - 6.0 % [facility] Comment: The ADA recommends that most patients with type 1 and type 2 diabetes maintain an A1c level <7%. Specimen Performing Organization Address [facility] Code P narendra Number [facility] [address] [place] [address] * COMPREHENSIVE METABOLIC PANEL (12/07/2020 3:19 PM CDT) Sodium 142 137 - 147 MMOL/L [facility] Potassium 4.5 3.5 - 5.1 MMOL/L [facility] Chloride 109 98 - 110 MMOL/L [facility] Glucose 128 (H) 70 - 100 MG/DL [facility] Blood Urea 15 7 - 25 MG/DL [facility] Nitrogen Creatinine 0.71 0.4 - 1.00 MG/DL [facility] Calcium 9.0 8.5 - 10.6 MG/DL [facility] Total Protein 6.7 6.0 - 8.0 G/DL [facility] Total Bilirubin 0.7 0.3 - 1.2 MG/DL [facility] Albumin 3.9 3.5 - 5.0 G/DL [facility] Alk Phosphatase 60 25 - 110 U/L [facility] AST (SGOT) 126 (H) 7 - 40 U/L [facility] CO2 23 21 - 30 MMOL/L [facility] ALT (SGPT) 18 7 - 56 U/L [facility] Anion Gap 10 3 - 12 [facility] eGFR Non >60 >60 mL/min [facility] Comment: [place] The eGFR is not validated f or use in drug dosing adjustments. Continue to use estimated creatinine clearance per dosing reference text. Please contact the Clinical Pharmacist for questions. eGFR >60 >60 mL/min [facility] [place] Comment: The eGFR is not validated for use in drug dosing adjustments. Continue to use estimated creatinine clearance per dosing reference text. Please contact the Clinical Pharmacist for questions. Specimen Performing Organization Address City/State/ZIP Code P narendra Number MAIN LAB [address] [place] [address] * LACTIC ACID (BG - RAPID LACTATE) (12/07/2020 3:19 PM CDT) Lactic Acid,BG 1.9 0.5 - 2.0 MMOL/L [facility] Specimen Performing Organization Address City/[facility] P narendra Number [facility] [address] [place] [address] * TYPE & CROSSMATCH (12/07/2020 3:19 PM CDT) Units Ordered 0 [facility] Crossmatch 12/10/2020,2359 [facility] Expires Record Check 2ND TYPE REQUIRED [facility] ABO/RH(D) B POS [facility] Antibody Screen NEG [facility] Electronic YES [facility] Crossmatch Specimen Lung RML Performing Organization Address [facility] P narendra Number MAIN LAB [address] [place] [address] * TELEMETRY STRIPS-SCAN (12/07/2020 12:00 AM CDT) [...] - Primary Postsurgical aortocoronary bypass statu s NSTEMI, initial episode of care (HCC) Acute myocardial infarction, subendocar dial infarction, initial episode of care 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) Acute systolic (congestive) heart failu re (HCC) Hyperlipidemia, unspecified hyperlipide josias type Cardiogenic shock (HCC) Cardiogenic shock Essential hypertension Unspecified essential hypertension Hypokalemia Hypopotassemia On intra-aortic balloon pump assist Ischemia of right lower extremity NYHA class 2 acute on chronic systolic heart failure (HCC) Ischemic cardiomyopathy Other specified forms of chronic ischem ic heart disease Type 2 diabetes mellitus (HCC) Type II or unspecified type diabetes me llitus without mention of complication, not stated as uncontrolled Vasogenic shock (HCC) Other shock without mention of trauma Acute blood loss anemia Acute posthemorrhagic anemia documented in this encounter Administered Medications Action Date Dose Rate Site Medication Order MAR Action 12/17/2020 8:29 PM CDT 1,000 mg 400 mL/hr acetaminophen (OFIRMEV) 1,000 mg Given - New injection 100 mL Bag 1,000 mg, Intravenous, 100 mL, Administer over 15 Minutes, ONCE, 1 dose, On Wed12/17/20 at 202912/20/2020 9:16 AM CDT 1,000 mg acetaminophen (TYLENOL EXTRA STRENGTH) Given tablet 1,000 mg 1,000 mg, Oral, EVERY 6 HOURS WHILE AWAKE, 12 doses, First dose on Wed12/16/20 at 1500, Last dose on Wed12/20/20 at 0900, Acetaminophen dose not to exceed 4 gm daily 1,000 mg Given 12/19/2020 8:30 PM CDT 1,000 mg Given 12/19/2020 2:12 PM CDT 1,000 mg Given 12/19/2020 8:51 AM CDT 1,000 mg Given 12/18/2020 9:01 PM CDT 1,000 mg Given 12/18/2020 3:56 PM CDT 1,000 mg Given 12/18/2020 8:00 AM CDT 1,000 mg Given 12/17/2020 3:32 PM CDT 1,000 mg Given 12/17/2020 9:06 AM CDT 1,000 mg Given 12/16/2020 8:25 PM CDT 1,000 mg Given 12/16/2020 3:35 PM CDT acetaminophen (TYLENOL) rectal suppository 650 mg 650 mg, Rectal, EVERY 6 HOURS PRN, Starting on 12/21/20 at 0000, Until Wed12/25/20 at 1308, Pain non-opioid: may be used alone or in combination wit h opioid analgesia, Temp > 38.5 C, Start POD #5, 6 hours after last scheduled acetaminophen dose. ACETAMINOPHEN DOSE NOT TO EXCEED 4GM DAILY. 12/13/2020 8:01 PM CDT 650 mg acetaminophen (TYLENOL) tablet 650 mg Given 650 mg, Oral, EVERY 4 HOURS PRN, Starting on Wed12/10/20 at 1741, Until Wed12/16/20 at 1221, Pain non-opioid: may be used alone or in combination wit h opioid analgesia, TOTAL ACETAMINOPHEN DOSE NOT TO EXCEED 4GM DAILY 650 mg Given 12/12/2020 12:28 PM CDT 650 mg Given 12/11/2020 4:44 PM CDT 650 mg Given 12/11/2020 5:24 AM CDT 650 mg Given 12/10/2020 6:00 PM CDT acetaminophen (TYLENOL) tablet 650 mg 650 mg, Oral, EVERY 6 HOURS PRN, Starting on 12/21/20 at 0000, Until Wed12/25/20 at 1308, Pain non-opioid: may be used alone or in combination wit h opioid analgesia, Temp > 38.5 C, Start POD #5, 6 hours after last scheduled acetaminophen dose. ACETAMINOPHEN DOSE NOT TO EXCEED 4GM DAILY. 12/16/2020 12:30 PM CDT 250 mL 999 mL/hr albumin 5% injection 250 mL Given - New 250 mL, 250 mL, Intravenous, at 999 Bag mL/hr, ONCE, 1 dose, On Wed12/16/20 at 1245 12/16/2020 11:53 PM CDT 250 mL 250 mL/hr albumin 5% injection 250 mL Given - New 250 mL, 250 mL, Intravenous, at 250 Bag mL/hr, ONCE, 1 dose, On Wed12/17/20 at 0045 12/17/2020 2:17 AM CDT 250 mL albumin 5% injection 250 mL Given - New 250 mL, 250 mL, Intravenous, ONCE, 1 Bag dose, On Wed12/17/20 at 0230 12/17/2020 6:59 PM CDT 250 mL 200 mL/hr albumin 5% injection 250 mL Given - New 250 mL, 250 mL, Intravenous, at 200 Bag mL/hr, ONCE, 1 dose, On Wed12/17/20 at 1930 ALBUMIN, HUMAN 5 % IV SOLP (Cabinet Override) NOW, 1 dose, On Wed12/16/20 at 0730, Created by fernie override, Created by [email or web address] override 12/15/2020 8:34 AM CDT 100 mg allopurinoL (ZYLOPRIM) tablet 100 mg Given 100 mg, Oral, DAILY, First dose on Wed12/08/20 at 1745, Until Discontinued 100 mg Given 12/14/2020 8:17 AM CDT 100 mg Given 12/13/2020 8:07 AM CDT 100 mg Given 12/12/2020 8:19 AM CDT 100 mg Given 12/11/2020 9:01 AM CDT 100 mg Given 12/10/2020 10:09 AM CDT 100 mg Given 12/09/2020 8:25 AM CDT 12/25/2020 8:18 AM CDT 100 mg allopurinoL (ZYLOPRIM) tablet 100 mg Given 100 mg, Oral, DAILY, First dose on Wed12/18/20 at 1315, Until Discontinued 100 mg Given 12/24/2020 8:08 AM CDT 100 mg Given 12/23/2020 10:00 AM CDT 100 mg Given 12/22/2020 9:20 AM CDT 100 mg Given 12/21/2020 10:10 AM CDT 100 mg Given 12/20/2020 9:16 AM CDT 100 mg Given 12/19/2020 8:52 AM CDT 100 mg Given 12/18/2020 2:00 PM CDT 12/16/2020 12:24 PM CDT 2 g/hr 40 mL/hr aminocaproic acid (AMICAR) 12.5 g in Dose/Rate sodium chloride 0.9% (NS) IV infusion Verify 2 g/hr (40 mL/hr), Intravenous, 250 mL, CONTINUOUS (LINE SUPERVISOR FROM RX), Starting on Wed12/16/20 at 1230, Until Wed12/16/20 at 1829, Continuous infusion until OR bag is complete (approx 2 hours) 12/19/2020 8:30 PM CDT 400 mg amiodarone (CORDARONE) tablet 400 mg Given 400 mg, Oral, TWICE DAILY, First dose o n 12/17/20 at 0900, Until Discontinued , Start POD #1 400 mg Given 12/19/2020 8:51 AM CDT 400 mg Given 12/18/2020 9:00 PM CDT 400 mg Given 12/18/2020 8:00 AM CDT 400 mg Given 12/17/2020 8:03 PM CDT 400 mg Given 12/17/2020 9:06 AM CDT 12/25/2020 8:18 AM CDT 81 mg aspirin chewable tablet 81 mg Given 81 mg, Oral, DAILY, First dose on Wed12/16/20 at 2000, Until Discontinued, Give first dose 8 hours after surgery. Hold if chest tube output >150 mL/day. Hold for platelet count <80,000. May give per NG tube. 81 mg Given 12/24/2020 8:08 AM CDT 81 mg Given 12/23/2020 10:00 AM CDT 81 mg Given 12/22/2020 9:20 AM CDT 81 mg Given 12/21/2020 10:09 AM CDT 81 mg Given 12/20/2020 9:16 AM CDT 81 mg Given 12/19/2020 8:51 AM CDT 81 mg Given 12/18/2020 8:00 AM CDT 12/15/2020 8:34 AM CDT 81 mg aspirin EC tablet 81 mg Given 81 mg, Oral, DAILY, First dose on Wed12/08/20 at 0900, Until Discontinued 81 mg Given 12/14/2020 8:17 AM CDT 81 mg Given 12/13/2020 8:07 AM CDT 81 mg Given 12/12/2020 8:19 AM CDT 81 mg Given 12/11/2020 9:01 AM CDT 81 mg Given 12/10/2020 10:08 AM CDT 81 mg Given 12/09/2020 8:25 AM CDT 81 mg Given 12/08/2020 8:36 AM CDT 12/17/2020 10:48 AM CDT 1 g ceFAZolin (ANCEF) IVP 1 g Given 1 g, Intravenous, EVERY 8 HOURS, 3 doses, First dose on Wed12/16/20 at 1915, Last dose on Wed12/17/20 at 1115, IV PUSH -- RECONSTITUTE each 1 g vial b y adding 10 mLs of STERILE WATER (SW), Fo r patients < 80 kg 1 g Given 12/17/2020 3:24 AM CDT 1 g Given 12/16/2020 6:31 PM CDT 12/25/2020 8:18 AM CDT 75 mg clopiDOGrel (PLAVIX) tablet 75 mg Given 75 mg, Oral, DAILY, First dose on Wed12/24/20 at 1230, Until Discontinued, This Medication can increase the risk o f bleeding and may need to be held prior to surgery or invasive procedures. Consult physician in advance. 75 mg Given 12/24/2020 2:56 PM CDT 12/17/2020 3:40 PM CDT 0.5 mcg/kg/hr 7.3 mL/hr dexMEDEtomidine (PRECEDEX) 400 mcg/NS Dose/Rate 100 ml IV drip (premade) Change 100 mL, 0.2-1 mcg/kg/hr 58.1 kg (2.905-14.525 mL/hr, rounded to 2.9-14.5 mL/hr), at 2.9-14.5 mL/hr, Intravenous, CONTINUOUS, Starting on 12/16/20 at 1230, Until Wed12/17/20 at 1944, -Initiate at 0.2 mcg/kg/hr and maintain for 30 minutes -Titrate to keep: RASS of 0 to -2 a.) Titrate infusion in increments of 0.1 mcg/kg/hour at 5 minute intervals until goal sedation level achieved or maintenance exceeds 1.0 mcg/kg/hr b.) I f HR < 50 or SBP < 90 mmHg hold for 10 minutes then restart at dose reduced by 0.3 mcg/kg/min c.) Notify physician for persistent hypotension (SBP < 90 mmHg) or bradycardia (HR < 50) over 15 minute s d.) For breakthrough agitation NOTIFY PHYSICIAN and consider bolus of 1 mcg/k g over 20 min if HR and BP are acceptable . e.) Notify physician if maintenance exceeds 1 mcg/kg/hr -Taper agent continuously to lowest effective dose t o achieve desired level of sedation keeping patient calm and able to participate in care. , Std conc= 4mcg/ml NOTE: For weight-based dosing , use patient dosing weight. NOTE: This i s a HIGH ALERT Medication. 1 mcg/kg/hr 14.5 mL/hr Dose/Rate Verify 12/17/2020 3:16 PM CDT 1 mcg/kg/hr 14.5 mL/hr Dose/Rate Verify 12/17/2020 3:00 PM CDT 1 mcg/kg/hr 14.5 mL/hr Given - New Bag 12/17/2020 2:54 PM CDT 1 mcg/kg/hr 14.525 mL/hr Infusion Restarted 12/17/2020 2:15 PM CDT 1 mcg/kg/hr 14.5 mL/hr Given - New Bag 12/17/2020 12:30 PM CDT 1 mcg/kg/hr 14.5 mL/hr Dose/Rate Change 12/17/2020 7:39 AM CDT 0.8 mcg/kg/hr 11.6 mL/hr Dose/Rate Change 12/17/2020 7:10 AM CDT 0.7 mcg/kg/hr 10.2 mL/hr Given - New Bag 12/17/2020 6:14 AM CDT 0.7 mcg/kg/hr 10.2 mL/hr Dose/Rate Change 12/17/2020 5:27 AM CDT 1 mcg/kg/hr 14.5 mL/hr Given - New Bag 12/16/2020 9:41 PM CDT 1 mcg/kg/hr 14.5 mL/hr Given - New Bag 12/16/2020 3:05 PM CDT 1 mcg/kg/hr 14.5 mL/hr Dose/Rate Verify 12/16/2020 2:45 PM CDT 1 mcg/kg/hr 14.5 mL/hr Dose/Rate Verify 12/16/2020 12:24 PM CDT 12/18/2020 10:44 AM CDT 0.01 mcg/kg/min 2.2 mL/hr EPINEPHrine (ADRENALIN) 4 mg in dextrose Dose/Rate 5% (D5W) 250 mL IV drip (std conc) Change 250 mL, 0.01 mcg/kg/min 58.1 kg (2.1788 mL/hr, rounded to 2.2 mL/hr), at 2.2 mL/hr, Intravenous, CONTINUOUS, Starting on Wed12/16/20 at 1230, Until Wed12/18/20 at 1203, DO NOT TITRATE Notify provider for CI <2 Std conc = 16 mcg/mL NOTE: This is a HIGH ALERT Medication. 0.02 mcg/kg/min 4.4 mL/hr Dose/Rate Change 12/18/2020 8:38 AM CDT 0.03 mcg/kg/min 6.5 mL/hr Dose/Rate Verify 12/18/2020 7:10 AM CDT 0.03 mcg/kg/min 6.5 mL/hr Dose/Rate Change 12/18/2020 3:39 AM CDT 0.04 mcg/kg/min 8.7 mL/hr Dose/Rate Verify 12/18/2020 12:16 AM CDT 0.04 mcg/kg/min 8.7 mL/hr Dose/Rate Change 12/18/2020 12:11 AM CDT 0.05 mcg/kg/min 10.9 mL/hr Given - New Bag 12/17/2020 10:55 PM CDT 0.05 mcg/kg/min 10.9 mL/hr Dose/Rate Change 12/17/2020 10:50 PM CDT 0.06 mcg/kg/min 13.1 mL/hr Dose/Rate Verify 12/17/2020 9:03 PM CDT 0.06 mcg/kg/min 13.1 mL/hr Dose/Rate Verify 12/17/2020 3:00 PM CDT 0.06 mcg/kg/min 13.073 mL/hr Dose/Rate Change 12/17/2020 1:24 PM CDT 0.1 mcg/kg/min 21.788 mL/hr Dose/Rate Change 12/17/2020 1:19 PM CDT 0.06 mcg/kg/min 13.1 mL/hr Dose/Rate Verify 12/17/2020 12:00 PM CDT 0.06 mcg/kg/min 13.1 mL/hr Dose/Rate Verify 12/17/2020 7:10 AM CDT 0.06 mcg/kg/min 13.1 mL/hr Dose/Rate Change 12/17/2020 3:01 AM CDT 0.07 mcg/kg/min 15.3 mL/hr Dose/Rate Change 12/17/2020 1:14 AM CDT 0.08 mcg/kg/min 17.4 mL/hr Given - New Bag 12/17/2020 1:04 AM CDT 0.08 mcg/kg/min 17.4 mL/hr Dose/Rate Verify 12/16/2020 11:05 PM CDT 0.08 mcg/kg/min 17.4 mL/hr Dose/Rate Verify 12/16/2020 12:24 PM CDT 12/15/2020 8:34 AM CDT 10 mg ezetimibe (ZETIA) tablet 10 mg Given 10 mg, Oral, DAILY, First dose on Wed12/12/20 at 1245, Until Discontinued 10 mg Given 12/14/2020 8:17 AM CDT 10 mg Given 12/13/2020 8:07 AM CDT 10 mg Given 12/12/2020 12:25 PM CDT 12/24/2020 9:07 PM CDT 10 mg ezetimibe (ZETIA) tablet 10 mg Given 10 mg, Oral, AT BEDTIME DAILY, First dose on Wed12/17/20 at 2100, Until Discontinued 10 mg Given 12/23/2020 8:14 PM CDT 10 mg Given 12/22/2020 8:06 PM CDT 10 mg Given 12/21/2020 8:37 PM CDT 10 mg Given 12/20/2020 8:49 PM CDT 10 mg Given 12/19/2020 8:30 PM CDT 10 mg Given 12/18/2020 9:02 PM CDT 10 mg Given 12/17/2020 8:03 PM CDT 12/17/2020 4:23 PM CDT 10 mcg/hr 1 mL/hr fentaNYL (SUBLIMAZE) 1000 mcg/100 mL NS Dose/Rate IV drip (std conc)(premade) Change 100 mL, 10-200 mcg/hr (1-20 mL/hr), at 1-20 mL/hr, Intravenous, TITRATE DIRECTED , Starting on Wed12/16/20 at 1900, Until Wed12/17/20 at 1943, Drip Parameters: Loading Dose: 50 mcg, administer slowly over 1-2 minutes Initial Rate: 25 mcg/hr Titrate to keep : Self Reporting Pain Scale of <=4 or Observational Pain Score of <=2 Titrate by 10 mcg every 15 minutes as needed to maintain desired clinical response May bolus 50 mcg IV every 30 minutes prn breakthrough pain. Notify prescriber if 3 or more bolus doses required without relief of symptoms. Std conc = 10 mcg/m L NOTE: This is a HIGH ALERT Medication. 25 mcg/hr 2.5 mL/hr Dose/Rate Change 12/17/2020 3:40 PM CDT 150 mcg/hr 15 mL/hr Dose/Rate Verify 12/17/2020 3:00 PM CDT 150 mcg/hr 15 mL/hr Infusion Restarted 12/17/2020 2:15 PM CDT 150 mcg/hr 15 mL/hr Dose/Rate Verify 12/17/2020 1:00 PM CDT 150 mcg/hr 15 mL/hr Dose/Rate Change 12/17/2020 12:28 PM CDT 70 mcg/hr 7 mL/hr Given - New Bag 12/17/2020 10:39 AM CDT 70 mcg/hr 7 mL/hr Dose/Rate Verify 12/17/2020 8:01 AM CDT 50 mcg/hr 5 mL/hr Bolus from Infusion 12/17/2020 8:00 AM CDT 70 mcg/hr 7 mL/hr Dose/Rate Verify 12/17/2020 7:41 AM CDT 50 mcg/hr 5 mL/hr Bolus from Infusion 12/17/2020 7:40 AM CDT 50 mcg/hr 5 mL/hr Dose/Rate Verify 12/17/2020 7:16 AM CDT 50 mcg/hr 5 mL/hr Bolus from Infusion 12/17/2020 7:15 AM CDT 50 mcg/hr 5 mL/hr Dose/Rate Change 12/17/2020 5:28 AM CDT 70 mcg/hr 7 mL/hr Dose/Rate Verify 12/17/2020 4:54 AM CDT 50 mcg/hr 5 mL/hr Bolus from Infusion 12/17/2020 4:52 AM CDT 70 mcg/hr 7 mL/hr Given - New Bag 12/17/2020 3:23 AM CDT 70 mcg/hr 7 mL/hr Dose/Rate Change 12/17/2020 2:19 AM CDT 65 mcg/hr 6.5 mL/hr Dose/Rate Change 12/17/2020 1:28 AM CDT 55 mcg/hr 5.5 mL/hr Dose/Rate Verify 12/17/2020 12:58 AM CDT 50 mcg/hr 5 mL/hr Bolus from Infusion 12/17/2020 12:57 AM CDT 55 mcg/hr 5.5 mL/hr Dose/Rate Verify 12/16/2020 11:35 PM CDT 50 mcg/hr 5 mL/hr Bolus from Infusion 12/16/2020 11:33 PM CDT 55 mcg/hr 5.5 mL/hr Dose/Rate Change 12/16/2020 11:23 PM CDT 45 mcg/hr 4.5 mL/hr Dose/Rate Change 12/16/2020 9:03 PM CDT 35 mcg/hr 3.5 mL/hr Dose/Rate Change 12/16/2020 8:44 PM CDT 25 mcg/hr 2.5 mL/hr Dose/Rate Verify 12/16/2020 6:56 PM CDT 50 mcg/hr 5 mL/hr Bolus from Infusion 12/16/2020 6:55 PM CDT 25 mcg/hr 2.5 mL/hr Given - New Bag 12/16/2020 6:54 PM CDT 12/16/2020 5:01 PM CDT 50 mcg fentaNYL citrate PF (SUBLIMAZE) Given injection 25-50 mcg 25-50 mcg, Intravenous, EVERY 1 HOUR PRN, Starting on Wed12/16/20 at 1221, Until Wed12/17/20 at 1943, Pain Injectable, To be given in ICU only. 50 mcg Given 12/16/2020 4:00 PM CDT 50 mcg Given 12/16/2020 1:38 PM CDT 50 mcg Given 12/16/2020 1:02 PM CDT 12/22/2020 5:40 PM CDT 20 mg furosemide (LASIX) injection 20 mg Given 20 mg, 2 mL, Intravenous, TWICE DAILY, First dose on Wed12/18/20 at 0945, Unti l Discontinued, PROTECT FROM LIGHT 20 mg Given 12/22/2020 9:21 AM CDT 20 mg Given 12/21/2020 5:43 PM CDT 20 mg Given 12/21/2020 10:13 AM CDT 20 mg Given 12/20/2020 4:39 PM CDT 20 mg Given 12/20/2020 9:17 AM CDT 20 mg Given 12/19/2020 5:15 PM CDT 20 mg Given 12/19/2020 8:52 AM CDT 20 mg Given 12/18/2020 4:01 PM CDT 20 mg Given 12/18/2020 9:07 AM CDT 12/07/2020 5:25 PM CDT 40 mg furosemide (LASIX) injection 40 mg Given 40 mg, 4 mL, Intravenous, ONCE, 1 dose, On 12/07/20 at 1700, PROTECT FROM LIGHT 12/15/2020 8:34 AM CDT 20 mg furosemide (LASIX) tablet 20 mg Given 20 mg, Oral, DAILY, First dose on 12/08/20 at 1115, Until Discontinued 20 mg Given 12/14/2020 8:17 AM CDT 20 mg Given 12/13/2020 8:07 AM CDT 20 mg Given 12/12/2020 8:19 AM CDT 20 mg Given 12/11/2020 9:01 AM CDT 20 mg Given 12/10/2020 10:09 AM CDT 20 mg Given 12/09/2020 8:25 AM CDT 20 mg Given 12/08/2020 10:40 AM CDT 12/25/2020 8:18 AM CDT 40 mg furosemide (LASIX) tablet 40 mg Given 40 mg, Oral, DAILY, First dose on Wed12/23/20 at 0900, Until Discontinued 40 mg Given 12/24/2020 8:08 AM CDT 40 mg Given 12/23/2020 10:00 AM CDT 12/18/2020 5:44 AM CDT 100 mg gabapentin (NEURONTIN) capsule 100 mg Given 100 mg, Oral, EVERY 8 HOURS, First dos e on Wed12/17/20 at 0945, Until Discontinued 100 mg Given 12/17/2020 9:00 PM CDT 12/15/2020 1:23 PM CDT 300 mg gabapentin (NEURONTIN) capsule 300 mg Given 300 mg, Oral, DAILY, First dose on Wed12/09/20 at 1200, Until Discontinued 300 mg Given 12/14/2020 2:07 PM CDT 300 mg Given 12/13/2020 12:35 PM CDT 300 mg Given 12/12/2020 12:25 PM CDT 300 mg Given 12/11/2020 12:44 PM CDT 300 mg Given 12/10/2020 12:13 PM CDT 300 mg Given 12/09/2020 1:14 PM CDT 12/25/2020 6:18 AM CDT 300 mg gabapentin (NEURONTIN) capsule 300 mg Given 300 mg, Oral, EVERY 8 HOURS, First dos e (after last modification) on Wed 1 at 1400, Until Discontinued 300 mg Given 12/24/2020 9:07 PM CDT 300 mg Given 12/24/2020 2:56 PM CDT 300 mg Given 12/24/2020 6:30 AM CDT 300 mg Given 12/23/2020 10:58 PM CDT 300 mg Given 12/23/2020 4:08 PM CDT 300 mg Given 12/23/2020 6:35 AM CDT 300 mg Given 12/22/2020 9:47 PM CDT 300 mg Given 12/22/2020 2:37 PM CDT 300 mg Given 12/22/2020 6:11 AM CDT 300 mg Given 12/21/2020 8:37 PM CDT 300 mg Given 12/21/2020 3:38 PM CDT 300 mg Given 12/21/2020 6:10 AM CDT 300 mg Given 12/20/2020 8:49 PM CDT 300 mg Given 12/20/2020 3:07 PM CDT 300 mg Given 12/20/2020 6:39 AM CDT 300 mg Given 12/19/2020 8:31 PM CDT 300 mg Given 12/19/2020 1:17 PM CDT 300 mg Given 12/19/2020 5:37 AM CDT 300 mg Given 12/18/2020 9:01 PM CDT 300 mg Given 12/18/2020 1:58 PM CDT 12/15/2020 10:26 PM CDT 600 mg gabapentin (NEURONTIN) capsule 600 mg Given 600 mg, Oral, AT BEDTIME DAILY, First dose on Wed12/08/20 at 0130, Until Discontinued 600 mg Given 12/14/2020 8:41 PM CDT 600 mg Given 12/13/2020 8:00 PM CDT 600 mg Given 12/12/2020 8:45 PM CDT 600 mg Given 12/11/2020 8:15 PM CDT 600 mg Given 12/10/2020 8:37 PM CDT 600 mg Given 12/09/2020 8:20 PM CDT 600 mg Given 12/08/2020 8:04 PM CDT 600 mg Given 12/08/2020 1:51 AM CDT 12/15/2020 5:53 PM CDT 600 mg gabapentin (NEURONTIN) capsule 600 mg Given 600 mg, Oral, DAILY, First dose on Wed12/08/20 at 1745, Until Discontinued 600 mg Given 12/14/2020 6:13 PM CDT 600 mg Given 12/13/2020 5:35 PM CDT 600 mg Given 12/12/2020 4:46 PM CDT 600 mg Given 12/11/2020 4:41 PM CDT 600 mg Given 12/10/2020 5:36 PM CDT 600 mg Given 12/09/2020 5:17 PM CDT 600 mg Given 12/08/2020 5:50 PM CDT 12/16/2020 6:58 AM CDT 855 Units/hr 21.4 mL/hr heparin (porcine) 20,000 units/D5W 500 Given - New mL infusion (std conc)(premade) Bag 0-2,000 Units/hr (0-50 mL/hr) 500 mL, at 0-50 mL/hr, Intravenous, TITRATE DIRECTED , Starting on 12/07/20 at 1600, Until 12/16/20 at 1221, Weight-Based Heparin Algorithm - STEMI/NSTEMI/UA (fluid restricted patients) - See separate order for Initial IV bolus (if ordered). - If patient received IV heparin within the previous 2 hours, DO NOT give bolus, proceed with infusion. - Initial IV infusion 12 units/kg/hr. Infusion not t o exceed 1,000 units/hr for the first 12 hours. - Follow heparin infusion scale - WITH ADJUSTMENT BOLUS for subsequent bolus and rate changes (see separate bolus order). NOTE: This is a HIGH ALER T Medication. 855 Units/hr 21.4 mL/hr Given - New Bag 12/15/2020 10:38 PM CDT 755 Units/hr 18.9 mL/hr Dose/Rate Verify 12/15/2020 7:22 PM CDT 755 Units/hr 18.9 mL/hr Dose/Rate Change 12/15/2020 7:17 AM CDT 855 Units/hr 21.4 mL/hr Given - New Bag 12/14/2020 10:32 PM CDT 855 Units/hr 21.4 mL/hr Dose/Rate Verify 12/14/2020 7:35 PM CDT 855 Units/hr 21.4 mL/hr Dose/Rate Change 12/14/2020 4:07 PM CDT 755 Units/hr 18.9 mL/hr Infusion Restarted 12/14/2020 8:16 AM CDT 955 Units/hr 23.9 mL/hr Dose/Rate Verify 12/14/2020 7:23 AM CDT 955 Units/hr 23.9 mL/hr Given - New Bag 12/13/2020 8:39 PM CDT 955 Units/hr 23.9 mL/hr Dose/Rate Verify 12/13/2020 7:01 PM CDT 955 Units/hr 23.9 mL/hr Dose/Rate Verify 12/13/2020 7:24 AM CDT 955 Units/hr 23.9 mL/hr Given - New Bag 12/12/2020 10:42 PM CDT 955 Units/hr 23.9 mL/hr Dose/Rate Verify 12/12/2020 5:29 AM CDT 955 Units/hr 23.9 mL/hr Given - New Bag 12/12/2020 1:54 AM CDT 955 Units/hr 23.9 mL/hr Dose/Rate Verify 12/11/2020 9:37 PM CDT 955 Units/hr 23.9 mL/hr Dose/Rate Verify 12/11/2020 7:29 PM CDT 955 Units/hr 23.9 mL/hr Dose/Rate Change 12/11/2020 1:37 PM CDT 855 Units/hr 21.4 mL/hr Dose/Rate Change 12/11/2020 7:21 AM CDT 755 Units/hr 18.9 mL/hr Given - New Bag 12/11/2020 5:19 AM CDT 755 Units/hr 18.9 mL/hr Dose/Rate Verify 12/10/2020 7:09 PM CDT 755 Units/hr 18.9 mL/hr Dose/Rate Verify 12/10/2020 7:08 AM CDT 755 Units/hr 18.9 mL/hr Given - New Bag 12/10/2020 2:49 AM CDT 755 Units/hr 18.9 mL/hr Dose/Rate Verify 12/09/2020 7:27 PM CDT 755 Units/hr 18.9 mL/hr Dose/Rate Verify 12/09/2020 7:00 AM CDT 755 Units/hr 18.9 mL/hr Dose/Rate Verify 12/09/2020 5:43 AM CDT 755 Units/hr 18.9 mL/hr Given - New Bag 12/08/2020 8:01 PM CDT 755 Units/hr 18.9 mL/hr Dose/Rate Verify 12/08/2020 7:23 PM CDT 755 Units/hr 18.9 mL/hr Dose/Rate Verify 12/08/2020 3:41 PM CDT 755 Units/hr 18.9 mL/hr Dose/Rate Verify 12/08/2020 7:31 AM CDT 755 Units/hr 18.9 mL/hr Dose/Rate Verify 12/07/2020 7:11 PM CDT 755 Units/hr 18.9 mL/hr Given - New Bag 12/07/2020 4:15 PM CDT 12/15/2020 10:39 PM CDT 1,260 Units heparin (porcine) BOLUS for continuous Given inf (vial) 1,260-2,510 Units 1,260-2,510 Units (rounded from 1,256-2,512 Units = 20-40 Units/kg 62.8 kg) 2.51 mL, Intravenous, SEE ADMIN INSTRUCTIONS, Starting on 12/07/20 at 1558, Until 12/16/20 at 1221, ADJUSTMENT BOLUS (from vial) for hepari n drip -- Weight-Based Heparin Algorithm - STEMI/NSTEMI/UA - Follow heparin infusion scale - WITH ADJUSTMENT BOLUS (see heparin infusion order administration instructions) for subsequent bolus and rate changes. - Administer adjustment bolus from vial. NOTE: This is a HIGH ALERT Medication. 1,260 Units Given 12/14/2020 4:03 PM CDT 1,260 Units Given 12/11/2020 1:37 PM CDT 1,260 Units Given 12/11/2020 7:18 AM CDT 12/07/2020 4:16 PM CDT 3,770 Units heparin (porcine) injection 3,770 Units Given 3,770 Units (rounded from 3,768 Units = 60 Units/kg 62.8 kg), Intravenous, ONCE, 1 dose, On 12/07/20 at 1600, INITIAL BOLUS (from vial) for heparin drip -- Weight-Based Heparin Algorithm - STEMI/NSTEMI/UA (fluid restricted patients) - If patien t received IV heparin within the previous 2 hours, DO NOT give bolus, proceed wit h infusion - Initial IV bolus: 60 units/kg - Not to exceed 4000 units - Administer initial bolus from vial. NOTE: This is a HIGH ALERT Medication. 12/17/2020 1:02 PM CDT 5,000 Units heparin (porcine) PF syringe 5,000 Units Given 5,000 Units, Intravenous, ONCE, 1 dose, On 12/17/20 at 1300, NOTE: This is a HIGH ALERT Medication. 12/25/2020 6:18 AM CDT 5,000 Units Abdomina l Tissue heparin (porcine) PF syringe 5,000 Units Given 5,000 Units, Subcutaneous, EVERY 8 HOURS, First dose on Yanni 12/19/20 at 0830, Until Discontinued, NOTE: This is a HIGH ALERT Medication. 5,000 Units Abdominal Tissue Given 12/24/2020 9:07 PM CDT 5,000 Units Abdominal Tissue Given 12/24/2020 2:56 PM CDT 5,000 Units Abdominal Tissue Given 12/24/2020 6:30 AM CDT 5,000 Units Abdominal Tissue Given 12/23/2020 10:58 PM CDT 5,000 Units Abdominal Tissue Given 12/23/2020 4:08 PM CDT 5,000 Units Abdominal Tissue Given 12/23/2020 6:35 AM CDT 5,000 Units Abdominal Tissue Given 12/22/2020 9:46 PM CDT 5,000 Units Abdominal Tissue Given 12/22/2020 2:37 PM CDT 5,000 Units Abdomen:LLQ Given 12/22/2020 6:12 AM CDT 5,000 Units Abdomen:RLQ Given 12/21/2020 8:38 PM CDT 5,000 Units Abdominal Tissue Given 12/21/2020 3:38 PM CDT 5,000 Units Abdomen:LLQ Given 12/21/2020 6:10 AM CDT 5,000 Units Abdomen:RLQ Given 12/20/2020 8:49 PM CDT 5,000 Units Abdominal Tissue Given 12/20/2020 3:06 PM CDT 5,000 Units Abdomen:RLQ Given 12/20/2020 6:40 AM CDT 5,000 Units Abdomen:LLQ Given 12/19/2020 8:31 PM CDT 5,000 Units Abdominal Tissue Given 12/19/2020 1:17 PM CDT 5,000 Units Abdominal Tissue Given 12/19/2020 9:04 AM CDT 12/19/2020 5:37 AM CDT 10 mg hydrALAZINE (APRESOLINE) injection 10 mg Given 10 mg, Intravenous, EVERY 6 HOURS PRN, Starting on Wed12/16/20 at 1221, Until Wed12/25/20 at 1308, Systolic Blood Pressure..., >160 mmHg 10 mg Given 12/18/2020 12:30 PM CDT 12/20/2020 12:01 PM CDT 2 Units Arm, Lef t insulin aspart (U-100) (NOVOLOG FLEXPEN Given U-100 INSULIN) injection PEN 0-12 Units 0-12 Units, Subcutaneous, BEFORE MEALS AND 2200, First dose on Wed12/18/20 at 0845, Until Discontinued, -POC glucose 181-220mg/dL at , , administer 2 units insulin, at 22, 03* administer 0 units. -POC glucose 221-260mg/dL at , , administer 4 units insulin, at 22, 03* administer 2 units. -POC glucos e 261-300mg/dL at , , administer 6 units insulin, at 22, 03* administer 4 units. -POC glucose 301-350mg/dL at , , administer 8 units insulin, at 22, 03* administer 6 units. -POC glucos e 351-400mg/dL at administer 1 0 units insulin, at , 03* administer 8 units. -POC glucose >400mg/dL at administer 12 units insulin, at , 03* administer 10 units. *only if ordered 5x's daily For POCT glucose >350mg/dL give correction bolus and recheck POCT glucose in 2 hours. If POC T glucose at 2 hours >300mg/dL call physician for further orders. For patients who are not eating meals, continue to administer the appropriate correction factor. NOTE: This is a HIGH ALERT Medication., Dispense pens manually with initial order and then upon request. DO NOT uncheck "Do not dispense" 4 Units Abdominal Tissue Given 12/19/2020 5:15 PM CDT 2 Units Abdominal Tissue Given 12/19/2020 1:17 PM CDT 2 Units Abdominal Tissue Given 12/19/2020 7:36 AM CDT 2 Units Abdominal Tissue Given 12/18/2020 5:21 PM CDT 2 Units Abdominal Tissue Given 12/18/2020 11:01 AM CDT 12/21/2020 12:19 PM CDT 1 Units Abdomina l Tissue insulin aspart (U-100) (NOVOLOG FLEXPEN Given U-100 INSULIN) injection PEN 0-6 Units 0-6 Units, Subcutaneous, BEFORE MEALS AND 2200, First dose on 12/21/20 at 1100, Until Discontinued, -POC glucose 181-220mg/dL at administer 1 unit insulin, at , 03* administer 0 units. -POC glucose 221-260mg/dL at administer 2 units insulin, at , 03* administer 1 unit. -POC glucose 261-300mg/dL at administer 3 units insulin, at , 03* administer 2 units. -POC glucose 301-350mg/dL at administer 4 units insulin, at , 03* administer 3 units. -POC glucos e 351-400mg/dL at administer 5 units insulin, at , 03* administer 4 units. -POC glucose >400mg/dL at administer 6 units insulin, at , 03* administer 5 units. *only if ordered 5x's daily For POCT glucose >350mg/dL give correction bolus and recheck POCT glucose in 2 hours. If POC T glucose at 2 hours >300mg/dL call physician for further orders. For patients who are not eating meals, continue to administer the appropriate correction factor. NOTE: This is a HIGH ALERT Medication., Dispense pens manually with initial order and then upon request. DO NOT uncheck "Do not dispense" 12/15/2020 11:53 AM CDT 2 Units Arm, Rig ht insulin aspart U-100 (NOVOLOG FLEXPEN) Given injection PEN 0-12 Units 0-12 Units, Subcutaneous, BEFORE MEALS AND 2200, First dose on 12/08/20 at 1700, Until Discontinued, -POC glucose 181-220mg/dL at , , administer 2 units insulin, at 22, 03* administer 0 units. -POC glucose 221-260mg/dL at , , administer 4 units insulin, at 22, 03* administer 2 units. -POC glucos e 261-300mg/dL at , , administer 6 units insulin, at 22, 03* administer 4 units. -POC glucose 301-350mg/dL at , , administer 8 units insulin, at 22, 03* administer 6 units. -POC glucos e 351-400mg/dL at , , administer 1 0 units insulin, at 22, 03* administer 8 units. -POC glucose >400mg/dL at , , administer 12 units insulin, at 22, 03* administer 10 units. *only if ordered 5x's daily For POCT glucose >350mg/dL give correction bolus and recheck POCT glucose in 2 hours. If POC T glucose at 2 hours >300mg/dL call physician for further orders. For patients who are not eating meals, continue to administer the appropriate correction factor. NOTE: This is a HIGH ALERT Medication., Dispense pens manually with initial order and then upon request. DO NOT uncheck "Do not dispense" 4 Units Arm, Left Given 12/14/2020 11:29 AM CDT 4 Units Arm, Left Given 12/11/2020 11:31 AM CDT 12/18/2020 7:08 AM CDT 1.5 Units/hr 1.5 mL/hr insulin regular 100 units/NS 100 mL IV Dose/Rate drip (premade) Change 100 mL, 1-32 Units/hr (1-32 mL/hr), at 1-32 mL/hr, Intravenous, TITRATE DIRECTED , Starting on Wed12/16/20 at 1230, Until Wed12/18/20 at 0833, (Administration Instructions were omitted from this summary because they were too long) 1.5 Units/hr 1.5 mL/hr Dose/Rate Verify 12/17/2020 7:10 PM CDT 1.5 Units/hr 1.5 mL/hr Dose/Rate Verify 12/17/2020 3:16 PM CDT 1.5 Units/hr 1.5 mL/hr Dose/Rate Verify 12/17/2020 7:10 AM CDT 1.5 Units/hr 1.5 mL/hr Dose/Rate Change 12/17/2020 6:53 AM CDT 2 Units/hr 2 mL/hr Dose/Rate Change 12/17/2020 3:55 AM CDT 3 Units/hr 3 mL/hr Dose/Rate Change 12/17/2020 3:10 AM CDT 4 Units/hr 4 mL/hr Infusion Restarted 12/17/2020 1:24 AM CDT 6 Units/hr 6 mL/hr Given - New Bag 12/16/2020 11:40 PM CDT 6 Units/hr 6 mL/hr Dose/Rate Verify 12/16/2020 7:13 PM CDT 6 Units/hr 6 mL/hr Dose/Rate Change 12/16/2020 12:45 PM CDT 12/19/2020 8:35 PM CDT 1 patch Chest, L eft lidocaine (LIDODERM) 5 % topical patch 1 Patch/Topic a patch l Applied 1 patch, Topical, Administer over 12 Hours, DAILY, First dose on Wed12/17/20 at 2100, Until Discontinued, NURSING PLEASE NOTE: Apply patch ONCE DAILY to chest and REMOVE after designated duration. Apply only to intact skin. Patch may be cut to fit affected area. 1 patch Chest, Right Patch/Topical Applied 12/18/2020 9:01 PM CDT 1 patch Chest, Left Patch/Topical Applied 12/17/2020 8:31 PM CDT 12/23/2020 10:00 AM CDT 12.5 mg losartan (COZAAR) tablet 12.5 mg Given 12.5 mg, Oral, DAILY, First dose on Wed12/21/20 at 0900, Until Discontinued 12.5 mg Given 12/22/2020 9:21 AM CDT 12.5 mg Given 12/21/2020 10:11 AM CDT 12/24/2020 8:08 AM CDT 25 mg losartan (COZAAR) tablet 25 mg Given 25 mg, Oral, DAILY, First dose (after last modification) on Wed12/24/20 at 0900, Until Discontinued magnesium oxide (MAGOX) tablet 200-600 mg 200-600 mg, Oral, NEEDED, Starting o n Wed12/16/20 at 1221, Until Wed12/25/20 at 1308, magnesium replacement (see admin instructions), Delivers 241.3mg elemental magnesium per tab Use tablet if patient tolerating PO; use IV if not tolerating PO. If urine output < 30 mL/hr, SCr >2 mg/dL, check with physician prior to giving magnesium replacement. For Serum Magnesium > 2.1 mg/dL, No replacement necessary. For Serum Magnesium 1.8 - 2.0 mg/dL, give Magnesium Oxide 200mg PO once. For Serum Magnesium 1.6 - 1.7 mg/dL, give Magnesium Oxide 400mg PO once For Serum Magnesium 1.3 - 1.5 mg/dL, give Magnesium Oxide 600mg PO once. For Seru m Magnesium < = 1.2 mg/dL, give Magnesium Sulfate 6 grams IV over 18 hours (each 1gm over 3 hours). Recheck serum magnesium level 24 hours after START of appropriate replacement dose. Repeat this standing order x 1. Notify physician if serum magnesium < 2.1 mg/d L after two replacements. magnesium sulfate 1 g/D5W 100 mL IVPB 1 g, Intravenous, 100 mL, Administer over 3-4 Hours, NEEDED, Starting on Wed12/16/20 at 1221, Until Wed12/25/20 at 1308, magnesium replacement (see admin instructions), Use tablet if patient tolerating PO; use IV if not tolerating PO. If urine output < 30 mL/hr, SCr >2 mg/dL, check with physician prior to giving magnesium replacement. For Serum Magnesium > 2.1 mg/dL, No replacement necessary. For Serum Magnesium 1.8 - 2.0 mg/dL, give Magnesium Sulfate 1 grams IV over 4 hours. For Serum Magnesium 1.6 - 1.7 mg/dL, give Magnesium Sulfate 2 grams I V over 8 hours (each 1gm over 4 hours). For Serum Magnesium 1.3 - 1.5 mg/dL, give Magnesium Sulfate 4 grams IV over 16 hours (each 1gm over 4 hours). For Serum Magnesium < = 1.2 mg/dL, give Magnesium Sulfate 6 grams IV over 18 hours (each 1gm over 3 hours). Recheck serum magnesium level 24 hours after START of appropriate replacement dose. Repeat this standing order x 1. Notify physician if serum magnesium < 2.1 mg/d L after two replacements. 12/16/2020 1:17 PM CDT 4 g 12.5 mL/hr magnesium sulfate 4 g/50 mL IVPB Given - New 4 g, Intravenous, 50 mL, Administer over Bag 240 Minutes, ONCE, 1 dose, On Wed12/16/20 at 1230, Give upon arrival to ICU. Check with physician prior to infusing if SCr >2 mg/dL. Do not give i f ESRD patient on HD. Check Mg++ level after completion of infusion. Each 1gm delivers 8.1 mEq Magnesium. MAGNESIUM SULFATE IN WATER 4 GRAM/50 ML (8 %) IV PGBK (Cabinet Override) NOW, 1 dose, On Wed12/16/20 at 0730, Created by cabinet override, Created by cabinet override 12/19/2020 1:17 PM CDT 12.5 mg meclizine (ANTIVERT) tablet 12.5 mg Given 12.5 mg, Oral, THREE TIMES DAILY PRN, Starting on Wed12/19/20 at 1305, Until Wed12/25/20 at 1308, Vertigo/Motion Sickness 12/24/2020 9:07 PM CDT 3 mg melatonin tablet 3 mg Given 3 mg, Oral, AT BEDTIME DAILY, First dos e on Wed12/19/20 at 2100, Until Discontinued 3 mg Given 12/23/2020 8:14 PM CDT 3 mg Given 12/22/2020 8:06 PM CDT 3 mg Given 12/21/2020 8:37 PM CDT 3 mg Given 12/20/2020 8:48 PM CDT 3 mg Given 12/19/2020 8:31 PM CDT 12/15/2020 10:25 PM CDT 5 mg melatonin tablet 5 mg Given 5 mg, Oral, AT BEDTIME PRN, Starting on Wed12/15/20 at 2146, Until Wed12/16/20 at 1221, Insomnia 12/09/2020 8:20 PM CDT 12.5 mg metoprolol tartrate (LOPRESSOR) tablet Given 12.5 mg 12.5 mg, Oral, TWICE DAILY, First dose on Wed12/08/20 at 1130, Until Discontinued, Hold for heart rate < 50 bpm or systolic BP < 100 12.5 mg Given 12/09/2020 8:25 AM CDT 12.5 mg Given 12/08/2020 8:04 PM CDT 12.5 mg Given 12/08/2020 10:40 AM CDT 12/10/2020 8:37 PM CDT 12.5 mg metoprolol tartrate (LOPRESSOR) tablet Given 12.5 mg 12.5 mg, Oral, DAILY, First dose on Wed12/10/20 at 2100, Until Discontinued, Hol d for heart rate < 50 bpm, or SBP <100 12/11/2020 9:01 AM CDT 25 mg metoprolol tartrate (LOPRESSOR) tablet Given 25 mg 25 mg, Oral, DAILY, First dose (after last modification) on Wed12/10/20 at 0915, Until Discontinued, Hold for hear t rate < 50 bpm or systolic BP < 100 25 mg Given 12/10/2020 10:09 AM CDT 12/22/2020 9:21 AM CDT 12.5 mg metoprolol tartrate tablet 12.5 mg Given 12.5 mg, Oral, TWICE DAILY, First dose on Wed12/18/20 at 1600, Until Discontinued, Hold for systolic BP < 10 0 12.5 mg Given 12/21/2020 8:37 PM CDT 12.5 mg Given 12/21/2020 10:09 AM CDT 12.5 mg Given 12/20/2020 8:49 PM CDT 12.5 mg Given 12/20/2020 9:16 AM CDT 12.5 mg Given 12/19/2020 8:30 PM CDT 12.5 mg Given 12/19/2020 8:51 AM CDT 12.5 mg Given 12/18/2020 5:16 PM CDT 12/23/2020 10:01 AM CDT 12.5 mg metoprolol XL (TOPROL XL) tablet 12.5 mg Given 12.5 mg, Oral, TWICE DAILY, First dose on Wed12/22/20 at 2100, Until Discontinued, Hold for heart rate < 65 bpm or systolic BP < 95 tablets may be cut in half, DO NOT CRUSH or CHEW 12.5 mg Given 12/22/2020 8:06 PM CDT 12/15/2020 10:26 PM CDT 25 mg metoprolol XL (TOPROL XL) tablet 25 mg Given 25 mg, Oral, AT BEDTIME DAILY, First dose on Wed12/11/20 at 2100, Until Discontinued, Hold for heart rate < 60 bpm or systolic BP < 90 tablets may be cut in half, DO NOT CRUSH or CHEW 25 mg Given 12/14/2020 8:41 PM CDT 25 mg Given 12/13/2020 8:00 PM CDT 25 mg Given 12/12/2020 8:45 PM CDT 25 mg Given 12/11/2020 9:48 PM CDT 12/23/2020 8:14 PM CDT 25 mg metoprolol XL (TOPROL XL) tablet 25 mg Given 25 mg, Oral, TWICE DAILY, First dose (after last modification) on Wed 1 at 2100, Until Discontinued, Hold for heart rate < 65 bpm or systolic BP < 95 tablets may be cut in half, DO NOT JORDY H or CHEW 12/24/2020 9:07 PM CDT 25 mg metoprolol XL (TOPROL XL) tablet 25 mg Given 25 mg, Oral, AT BEDTIME DAILY, First dose (after last modification) on Wed12/24/20 at 2100, Until Discontinued, Hold for heart rate < 65 bpm or systoli c BP < 95 tablets may be cut in half, DO NOT CRUSH or CHEW 12/11/2020 4:44 PM CDT 10 mL milk of magnesia (CONC) oral suspension Given 10 mL 10 mL, Oral, DAILY PRN, Starting on 12/11/20 at 0800, Until Wed12/16/20 at 1221, Constipation PO, 10 mL CONC = 30 mL MOM 12/19/2020 8:50 AM CDT 10 mL milk of magnesia (CONC) oral suspension Given 10 mL 10 mL, Oral, TWICE DAILY, First dose on Yanni 12/19/20 at 0900, Until Discontinued , 10 mL CONC = 30 mL MOM 12/19/2020 4:00 PM CDT 0.125 mcg/kg/min 2.2 mL/hr milrinone (PRIMACOR) 20 mg/D5W 100 mL Dose/Rate infusion Verify 0.125 mcg/kg/min 58.1 kg (2.1788 mL/hr, rounded to 2.2 mL/hr), 100 mL, at 2.2 mL/hr, Intravenous, CONTINUOUS, Starting on Mo n 12/16/20 at 1330, Until Wed12/20/20 at 1040, Initial Rate: 0.25 mcg/kg/min (recommendation 0.125-0.375 mcg/kg/min) Titrate to keep: DO NOT TITRATE Titrate by: DO NOT TITRATE Notify provider for CI <2 NOTE: For weight-based dosing, us e patient dosing weight. Std Vteh=211kgn/mL 0.125 mcg/kg/min 2.2 mL/hr Dose/Rate Verify 12/19/2020 12:20 PM CDT 0.125 mcg/kg/min 2.2 mL/hr Dose/Rate Verify 12/19/2020 12:00 PM CDT 0.125 mcg/kg/min 2.2 mL/hr Dose/Rate Change 12/19/2020 9:26 AM CDT 0.25 mcg/kg/min 4.4 mL/hr Given - New Bag 12/19/2020 7:24 AM CDT 0.25 mcg/kg/min 4.4 mL/hr Dose/Rate Verify 12/19/2020 7:20 AM CDT 0.25 mcg/kg/min 4.4 mL/hr Dose/Rate Verify 12/19/2020 4:00 AM CDT 0.25 mcg/kg/min 4.4 mL/hr Dose/Rate Verify 12/19/2020 12:00 AM CDT 0.25 mcg/kg/min 4.4 mL/hr Dose/Rate Verify 12/18/2020 8:45 PM CDT 0.25 mcg/kg/min 4.4 mL/hr Dose/Rate Verify 12/18/2020 7:10 AM CDT 0.25 mcg/kg/min 4.4 mL/hr Given - New Bag 12/18/2020 6:23 AM CDT 0.25 mcg/kg/min 4.4 mL/hr Dose/Rate Verify 12/18/2020 12:16 AM CDT 0.25 mcg/kg/min 4.4 mL/hr Dose/Rate Verify 12/17/2020 9:03 PM CDT 0.25 mcg/kg/min 4.4 mL/hr Dose/Rate Verify 12/17/2020 3:00 PM CDT 0.25 mcg/kg/min 4.4 mL/hr Dose/Rate Verify 12/17/2020 12:00 PM CDT 0.25 mcg/kg/min 4.4 mL/hr Dose/Rate Verify 12/17/2020 7:10 AM CDT 0.25 mcg/kg/min 4.4 mL/hr Given - New Bag 12/17/2020 6:14 AM CDT 0.25 mcg/kg/min 4.4 mL/hr Dose/Rate Verify 12/16/2020 11:05 PM CDT 0.25 mcg/kg/min 4.4 mL/hr Given - New Bag 12/16/2020 1:43 PM CDT nalOXone (NARCAN) injection 0.08 mg 0.08 mg, Intravenous, NEEDED, Starting on Wed12/16/20 at 1951, Until Wed12/25/20 at 1308, Respiratory Depression, -FOR RESPIRATORY RATE <7/MIN: Dilute one ampule naloxone 0.4 mg in 9 mL NS for injection (for a tota l of 10 mL of dilution). Inject 2 mL of diluted naloxone q 2 minutes until respiratory rate improves (RR >7/min) and/or drowsiness abates. Call physician. -IF PATIENT IS APNEIC: Give naloxone 0.4 mg q 2 minutes until respiratory rate improves (RR >7/min) and call Rapid Response Team. , PROTECT FROM LIGHT 12/18/2020 7:10 AM CDT 2.5 mg/hr 25 mL/hr niCARdipine (cardENE) 20 mg/200 mL NS Dose/Rate IV drip (std conc)(premade) Verify 200 mL, 2.5-15 mg/hr (25-150 mL/hr), at 25-150 mL/hr, Intravenous, TITRATE A S DIRECTED , Starting on Wed12/17/20 at 1945, Until Wed12/18/20 at 0835, Drip Parameters: Initial rate: 5 mg/hr Titrate to keep: SBP < 140 mmHg Titrat e by: 2.5 mg/hr every minutes as needed to achieve desired clinical response St d conc = 0.1 mg/ml 2.5 mg/hr 25 mL/hr Infusion Restarted 12/18/2020 5:54 AM CDT 2.5 mg/hr 25 mL/hr Infusion Restarted 12/18/2020 4:58 AM CDT 2.5 mg/hr 25 mL/hr Infusion Restarted 12/18/2020 4:03 AM CDT 2.5 mg/hr 25 mL/hr Dose/Rate Change 12/18/2020 3:27 AM CDT 5 mg/hr 50 mL/hr Dose/Rate Change 12/18/2020 3:10 AM CDT 2.5 mg/hr 25 mL/hr Infusion Restarted 12/18/2020 2:40 AM CDT 2.5 mg/hr 25 mL/hr Given - New Bag 12/17/2020 7:54 PM CDT 12/12/2020 11:29 AM CDT 0.4 mg nitroglycerin (NITROSTAT) tablet 0.4 mg Given 0.4 mg, Sublingual, ONCE, 1 dose, On 12/12/20 at 1215, Given at beginning of test with BP checked at 1 minute and 5 minutes after administration, MAC Procedure Area Only - Medications 12/17/2020 7:58 PM CDT 0.4 mcg/kg/min 7 mL/hr nitroGLYCERIN 50 mg/D5W 250 mL infusion Dose/Rate 250 mL, 0.1-3 mcg/kg/min Change 58.1 kg (1.743-52.29 mL/hr, rounded to 1.7-52.3 mL/hr), at 1.7-52.3 mL/hr, Intravenous, TITRATE DIRECTED , Starting on Wed12/16/20 at 1230, Until Wed12/18/20 at 0835, Initiate at 0.1 mcg/kg/min Titrate to: SBP >= 90 and <= 110 mmHg x 3 hours then 130 mmHg. NOTE: For weight-based dosing, use patient dosing weight. Std conc = 0.2 mg/mL 0.6 mcg/kg/min 10.5 mL/hr Dose/Rate Change 12/17/2020 7:45 PM CDT 0.5 mcg/kg/min 8.7 mL/hr Dose/Rate Change 12/17/2020 7:36 PM CDT 0.4 mcg/kg/min 7 mL/hr Dose/Rate Change 12/17/2020 7:27 PM CDT 0.3 mcg/kg/min 5.2 mL/hr Dose/Rate Change 12/17/2020 7:24 PM CDT 0.2 mcg/kg/min 3.5 mL/hr Dose/Rate Change 12/17/2020 7:14 PM CDT 0.3 mcg/kg/min 5.2 mL/hr Dose/Rate Change 12/17/2020 6:17 PM CDT 0.2 mcg/kg/min 3.5 mL/hr Dose/Rate Change 12/17/2020 5:50 PM CDT 0.1 mcg/kg/min 1.7 mL/hr Infusion Restarted 12/17/2020 5:47 PM CDT 0.1 mcg/kg/min 1.7 mL/hr Dose/Rate Change 12/17/2020 5:22 PM CDT 0.2 mcg/kg/min 3.5 mL/hr Dose/Rate Change 12/17/2020 4:40 PM CDT 0.4 mcg/kg/min 7 mL/hr Dose/Rate Change 12/17/2020 4:20 PM CDT 0.3 mcg/kg/min 5.2 mL/hr Dose/Rate Change 12/17/2020 4:00 PM CDT 0.2 mcg/kg/min 3.5 mL/hr Dose/Rate Change 12/17/2020 3:38 PM CDT 0.3 mcg/kg/min 5.2 mL/hr Dose/Rate Change 12/17/2020 3:22 PM CDT 0.2 mcg/kg/min 3.5 mL/hr Dose/Rate Change 12/17/2020 3:18 PM CDT 0.1 mcg/kg/min 1.7 mL/hr Infusion Restarted 12/17/2020 3:12 PM CDT 0.1 mcg/kg/min 1.7 mL/hr Infusion Restarted 12/17/2020 8:20 AM CDT 0.2 mcg/kg/min 3.5 mL/hr Infusion Restarted 12/17/2020 7:35 AM CDT 0.2 mcg/kg/min 3.5 mL/hr Dose/Rate Change 12/17/2020 6:38 AM CDT 0.4 mcg/kg/min 7 mL/hr Dose/Rate Change 12/17/2020 6:31 AM CDT 0.2 mcg/kg/min 3.5 mL/hr Infusion Restarted 12/17/2020 6:28 AM CDT 0.2 mcg/kg/min 3.5 mL/hr Dose/Rate Change 12/17/2020 4:56 AM CDT 0.4 mcg/kg/min 7 mL/hr Dose/Rate Change 12/17/2020 4:47 AM CDT 0.2 mcg/kg/min 3.5 mL/hr Infusion Restarted 12/17/2020 4:44 AM CDT 0.2 mcg/kg/min 3.5 mL/hr Infusion Restarted 12/17/2020 2:36 AM CDT 12/17/2020 2:25 PM CDT 0.02 mcg/kg/min 4.358 mL/hr norepinephrine (LEVOPHED) 4 mg/250 mL Infusion NS IV drip (std conc)(premade) Restarted 250 mL, 0-0.5 mcg/kg/min 58.1 kg (0-108.9375 mL/hr, rounded to 0-108.9 mL/hr), at 0-108.9 mL/hr, Intravenous, TITRATE DIRECTED , Starting on Wed12/16/20 at 1230, Until Wed12/18/20 at 0835, Drip Parameters: Initial Rate: 0.01 mcg/kg/min Titrate to keep: SBP >= 90 and <= 110 mmHg x 3 hours then 130 mmHg. Titrate by: 0.01 mcg/kg/min every 2 minutes as needed to maintain desired clinical response Std conc = 16 mcg/mL 0.01 mcg/kg/min 2.2 mL/hr Dose/Rate Change 12/16/2020 11:27 PM CDT 0.02 mcg/kg/min 4.4 mL/hr Dose/Rate Change 12/16/2020 10:56 PM CDT 0.03 mcg/kg/min 6.5 mL/hr Dose/Rate Change 12/16/2020 9:28 PM CDT 0.04 mcg/kg/min 8.7 mL/hr Dose/Rate Change 12/16/2020 9:16 PM CDT 0.03 mcg/kg/min 6.5 mL/hr Dose/Rate Change 12/16/2020 9:14 PM CDT 0.02 mcg/kg/min 4.4 mL/hr Dose/Rate Change 12/16/2020 9:10 PM CDT 0.03 mcg/kg/min 6.5 mL/hr Dose/Rate Change 12/16/2020 8:44 PM CDT 0.04 mcg/kg/min 8.7 mL/hr Dose/Rate Change 12/16/2020 8:37 PM CDT 0.03 mcg/kg/min 6.5 mL/hr Dose/Rate Change 12/16/2020 5:35 PM CDT 0.04 mcg/kg/min 8.7 mL/hr Dose/Rate Change 12/16/2020 4:17 PM CDT 0.03 mcg/kg/min 6.5 mL/hr Dose/Rate Change 12/16/2020 4:00 PM CDT 0.02 mcg/kg/min 4.4 mL/hr Dose/Rate Change 12/16/2020 3:15 PM CDT 0.01 mcg/kg/min 2.2 mL/hr Dose/Rate Change 12/16/2020 2:44 PM CDT 0.02 mcg/kg/min 4.4 mL/hr Dose/Rate Change 12/16/2020 2:00 PM CDT 0.01 mcg/kg/min 2.2 mL/hr Infusion Restarted 12/16/2020 1:56 PM CDT ondansetron (ZOFRAN ODT) rapid dissolve tablet 4 mg 4 mg, Oral, EVERY 6 HOURS PRN, Startin g on 12/16/20 at 1221, Until Wed12/25/20 at 1308, Nausea/Vomiting PO, (May use for PO or NG) 12/17/2020 3:36 AM CDT 4 mg ondansetron (ZOFRAN) injection 4 mg Given 4 mg, Intravenous, EVERY 6 HOURS PRN, Starting on Wed12/16/20 at 1221, Until Wed12/25/20 at 1308, Nausea/Vomiting Injectable 12/17/2020 9:06 AM CDT 10 mg oxyCODONE (ROXICODONE) tablet 5-10 mg Given 5-10 mg, Oral, EVERY 4 HOURS PRN, Starting on Wed12/16/20 at 1221, Until Wed12/17/20 at 1943, Pain PO 10 mg Given 12/16/2020 3:35 PM CDT 12/17/2020 8:03 PM CDT 40 mg pantoprazole (PROTONIX) injection 40 mg Given 40 mg, Intravenous, DAILY, First dose o n Wed12/16/20 at 2100, Until Discontinued 40 mg Given 12/16/2020 8:25 PM CDT 12/15/2020 10:26 PM CDT [address] (PROTONIX) tablet 40 mg Given 40 mg, Oral, DAILY, First dose on Wed12/07/20 at 2100, Until Discontinued, Do not crush or chew tablet. 40 mg Given 12/14/2020 8:41 PM CDT 40 mg Given 12/13/2020 8:00 PM CDT 40 mg Given 12/12/2020 8:45 PM CDT 40 mg Given 12/11/2020 8:15 PM CDT 40 mg Given 12/10/2020 8:37 PM CDT 40 mg Given 12/09/2020 8:20 PM CDT 40 mg Given 12/08/2020 8:04 PM CDT 40 mg Given 12/07/2020 8:42 PM CDT 12/10/2020 10:21 AM CDT 6 Diluted mL perflutren lipid microspheres (DEFINITY) Given injection 1-20 Diluted mL 1-20 Diluted mL, Intravenous, ONCE PRN, 1 dose, Starting on Wed12/10/20 at 0811, Until Wed12/10/20 at 1021, For Procedure , A integration software engineer may only administer Definity through a saline lock. If IV i s in use or a port, PICC, or central line is being used a nurse must administer. NOTE: This is a HIGH ALERT Medication., MAC Procedure Area Only - Medications 12/13/2020 4:50 PM CDT 2 Diluted mL perflutren lipid microspheres (DEFINITY) Given injection 1-20 Diluted mL 1-20 Diluted mL, Intravenous, ONCE PRN, 1 dose, Starting on Wed12/13/20 at 1650, Until Wed12/13/20 at 1650, For Procedure , A integration software engineer may only administer Definity through a saline lock. If IV i s in use or a port, PICC, or central line is being used a nurse must administer. NOTE: This is a HIGH ALERT Medication., MAC Procedure Area Only - Medications 12/20/2020 2:00 PM CDT 2 Diluted mL perflutren lipid microspheres (DEFINITY) Given injection 1-20 Diluted mL 1-20 Diluted mL, Intravenous, ONCE PRN, 1 dose, Starting on Wed12/20/20 at 1240 , Until Wed12/20/20 at 1400, For Procedure, A integration software engineer may only administer Definity through a saline lock. If IV is in use or a port, PICC, or central line is being used a nurse must administer. NOTE: This is a HIGH ALERT Medication., MAC Procedure Area Only - Medications 12/11/2020 9:01 AM CDT 17 g polyethylene glycol 3350 (MIRALAX) Given packet 17 g 17 g (1 packet), Oral, TWICE DAILY PRN, Starting on Wed12/11/20 at 0800, Until Wed12/16/20 at 1221, Constipation PO, 8.5 GRAMS = 0.5 PACKET 17 GRAMS = 1 PACKET 34 GRAMS = 2 PACKETS 12/19/2020 8:51 AM CDT 17 g polyethylene glycol 3350 (MIRALAX) Given packet 17 g 17 g (1 packet), Oral, TWICE DAILY, First dose on Wed12/16/20 at 2100, Unti l Discontinued, 8.5 GRAMS = 0.5 PACKET 17 GRAMS = 1 PACKET 34 GRAMS = 2 PACKETS 17 g Given 12/18/2020 9:00 PM CDT 17 g Given 12/18/2020 8:01 AM CDT 17 g Given 12/17/2020 8:04 PM CDT 17 g Given 12/17/2020 9:06 AM CDT 17 g Given 12/16/2020 8:25 PM CDT POTASSIUM CHLORIDE IN WATER 10 MEQ/50 M L IV PGBK (Cabinet Override) NOW, 1 dose, On Wed12/16/20 at 0730, Created by rolat manaide NOTE: This is a HIGH ALERT Medication., Created by [email or web address] override 12/17/2020 2:53 AM CDT 10 mEq 50 mL/hr potassium chloride in water IVPB 10 mEq Given - New 10 mEq, Intravenous, 50 mL, Administer Bag over 60 Minutes, NEEDED, Starting on Wed12/16/20 at 1221, Until Wed12/25/20 at 1308, See admin instructions, Use tablet or suspension if patient tolerating PO; use IV if not tolerating PO. It urine output <30 mL/hr or SCr >2 mg/dL, check with physician prior to giving K+ replacement. - For K+ 4.0-4.3, give potassium chloride 10 mEq IV over 1 hour* - For K+ 3.5-3.9, give potassium chloride 20 mEq IV over 2 hours* - For K+ 3.0-3.4, give potassium chloride 30 mEq IV over 3 hours* - For K+ <3, give potassium chloride 40 mEq I V over 4 hours* - *May increase rate to 2 0 mEq/hr if patient has central line - Check K+ 1 hour after end of each replacement dose. Follow K+ replacement orders based on result. NOTE: This is a HIGH ALERT Medication. 10 mEq 50 mL/hr Given - New Bag 12/16/2020 2:44 PM CDT 10 mEq 50 mL/hr Given - New Bag 12/16/2020 2:10 PM CDT 10 mEq 50 mL/hr Given - New Bag 12/16/2020 1:39 PM CDT 10 mEq 50 mL/hr Given - New Bag 12/16/2020 1:18 PM CDT 12/16/2020 3:34 PM CDT 20 mEq potassium chloride oral solution 20-40 Given mEq 20-40 mEq, Per NG tube, NEEDED, Starting on Wed12/16/20 at 1221, Until Wed12/25/20 at 1308, Other..., See admi n instructions, If urine output <30 mL/hr or SCr >2 mg/dL, check with physician prior to giving K+ replacement. - For K + 4.0-4.3, give potassium chloride 20 mEq PO/NG x 1 dose - For K+ 3.5-3.9, give potassium chloride 40 mEq PO/NG x 1 dos e - For K+ <3.5, give potassium chloride 40 mEq PO/NG every 4 hours x 2 doses - Check K+ in the AM if potassium >= 3.5 and replacement given - Check K+ 4 hour s after last replacement dose given if K+ <3.5, then repeat replacement orders if needed. 40 mEq Given 12/16/2020 3:31 PM CDT 12/23/2020 10:00 AM CDT 20 mEq potassium chloride SR (K-DUR) tablet Given 20-40 mEq 20-40 mEq, Oral, NEEDED, Starting on Wed12/16/20 at 1221, Until Wed12/25/20 at 1308, Other..., See admin instructions, If urine output <30 mL/hr or SCr >2 mg/dL, check with physician prior to giving K+ replacement. - For K + 4.0-4.3, give potassium chloride 20 mEq PO/NG x 1 dose - For K+ 3.5-3.9, give potassium chloride 40 mEq PO/NG x 1 dos e - For K+ <3.5, give potassium chloride 40 mEq PO/NG every 4 hours x 2 doses - Check K+ in the AM if potassium >= 3.5 and replacement given - Check K+ 4 hour s after last replacement dose given if K+ <3.5, then repeat replacement orders if needed. Give with meal or full glass of water 20 mEq Given 12/22/2020 6:12 AM CDT 20 mEq Given 12/21/2020 6:10 AM CDT 20 mEq Given 12/20/2020 6:40 AM CDT 12/24/2020 11:27 AM CDT 10 mg rosuvastatin (CRESTOR) tablet 10 mg Given 10 mg, Oral, EVERY 72 HOURS, First dose on Yanni 12/12/20 at 0945, Until Discontinued 10 mg Given 12/21/2020 10:09 AM CDT 10 mg Given 12/18/2020 8:03 AM CDT 10 mg Given 12/15/2020 8:35 AM CDT 10 mg Given 12/12/2020 9:06 AM CDT 12/09/2020 8:25 AM CDT 20 mg rosuvastatin (CRESTOR) tablet 20 mg Given 20 mg, Oral, DAILY, First dose on Wed12/08/20 at 1215, Until Discontinued 20 mg Given 12/08/2020 12:22 PM CDT 12/10/2020 12:13 PM CDT 5 mg rosuvastatin (CRESTOR) tablet 5 mg Given 5 mg, Oral, DAILY, First dose (after last modification) on Wed12/10/20 at 1030, Until Discontinued 12/11/2020 9:01 AM CDT 2 tablets senna/docusate (SENOKOT-S) tablet 2 Given tablet 2 tablet, Oral, TWICE DAILY PRN, Starting on Wed12/11/20 at 0759, Until Wed12/16/20 at 1221, Constipation PO, Hold for loose stools 12/19/2020 8:51 AM CDT 2 tablets senna/docusate (SENOKOT-S) tablet 2 Given tablet 2 tablet, Oral, TWICE DAILY, First dose on Wed12/17/20 at 0900, Until Discontinued, Start POD #1. Hold for loose stools. 2 tablets Given 12/18/2020 9:00 PM CDT 2 tablets Given 12/18/2020 8:00 AM CDT 2 tablets Given 12/17/2020 9:06 AM CDT 12/25/2020 8:18 AM CDT 100 mg SITagliptin (JANUVIA) tablet 100 mg Given 100 mg, Oral, DAILY, First dose on Wed12/21/20 at 1045, Until Discontinued 100 mg Given 12/24/2020 8:08 AM CDT 100 mg Given 12/23/2020 10:01 AM CDT 100 mg Given 12/22/2020 9:20 AM CDT 100 mg Given 12/21/2020 10:18 AM CDT 12/16/2020 6:30 AM CDT 20 mL/hr sodium chloride 0.9 % infusion Given - New 1,000 mL, Intravenous, at 20 mL/hr, Bag CONTINUOUS, Starting on Wed12/16/20 at 0615, Until Wed12/16/20 at 1221, Pre-Op 12/18/2020 12:16 AM CDT 30 mL/hr sodium chloride 0.9 % infusion Dose/Rate 1,000 mL, Intravenous, at 30 mL/hr, Verify CONTINUOUS, Starting on Wed12/16/20 at 1230, Until Wed12/18/20 at 1229 30 mL/hr Dose/Rate Verify 12/17/2020 9:03 PM CDT 30 mL/hr Dose/Rate Verify 12/17/2020 3:00 PM CDT 30 mL/hr Given - New Bag 12/17/2020 10:56 AM CDT 30 mL/hr Dose/Rate Verify 12/16/2020 11:05 PM CDT 30 mL/hr Dose/Rate Verify 12/16/2020 12:24 PM CDT SODIUM CHLORIDE 0.9 % IV SOLP (Cabinet Override) NOW, 1 dose, On Wed12/16/20 at 0615, Created by cabinet override, Created by cabinet override 12/12/2020 8:19 AM CDT 12.5 mg spironolactone (ALDACTONE) tablet 12.5 Given mg 12.5 mg, Oral, DAILY, First dose on Wed12/11/20 at 1400, Until Discontinued, NURSING: Please educate patient and document: Avoid using salt substitutes which have a high potassium content (Nu-Salt). 12.5 mg Given 12/11/2020 1:21 PM CDT 12/15/2020 8:34 AM CDT 25 mg spironolactone (ALDACTONE) tablet 25 mg Given 25 mg, Oral, DAILY, First dose (after last modification) on Wed12/13/20 at 0900, Until Discontinued, NURSING: Please educate patient and document: Avoid using salt substitutes which have a high potassium content (Nu-Salt). 25 mg Given 12/14/2020 8:17 AM CDT 25 mg Given 12/13/2020 8:08 AM CDT 12/25/2020 8:18 AM CDT 25 mg spironolactone (ALDACTONE) tablet 25 mg Given 25 mg, Oral, DAILY, First dose on Wed12/20/20 at 0900, Until Discontinued, NURSING: Please educate patient and document: Avoid using salt substitutes which have a high potassium content (Nu-Salt). 25 mg Given 12/24/2020 8:08 AM CDT 25 mg Given 12/23/2020 10:01 AM CDT 25 mg Given 12/22/2020 9:20 AM CDT 25 mg Given 12/21/2020 10:09 AM CDT 25 mg Given 12/20/2020 9:16 AM CDT 12/19/2020 3:53 PM CDT 25 mg traMADoL (ULTRAM) tablet 25 mg Given 25 mg, Oral, EVERY 6 HOURS PRN, Starting on Wed12/18/20 at 2019, Until Wed12/25/20 at 1308, Pain PO 25 mg Given 12/19/2020 5:37 AM CDT 25 mg Given 12/18/2020 9:00 PM CDT 12/18/2020 1:57 PM CDT 50 mg traMADoL (ULTRAM) tablet 50 mg Given 50 mg, Oral, EVERY 6 HOURS PRN, Starting on Wed12/17/20 at 1943, Until Wed12/18/20 at 2020, Pain PO 50 mg Given 12/18/2020 2:48 AM CDT 12/16/2020 6:31 PM CDT 20 mL WATER FOR INJECTION, STERILE IJ SOLN Given (Cabinet Override) NOW, 1 dose, On Wed12/16/20 at 1815, Created by cabinet override, Created by cabinet override 12/17/2020 10:49 AM CDT 20 mL WATER FOR INJECTION, STERILE IJ SOLN Given (Cabinet Override) NOW, 1 dose, On Wed12/17/20 at 0900, Created by cabinet override, Created by cabinet override documented in this encounter Discontinued Medications Start Date End Date Medication Sig Discontinue Reason 12/11/2020 gabapentin (NEURONTIN) Take 300 mg Removed from 100 mg by mouth TUGBOAT OPERATOR Med List capsuleIndications: daily. neuropathic pain Indications: neuropathic pain 12/11/2020 gabapentin (NEURONTIN) Take 600 mg Removed from 600 mg tabletIndications: by mouth TUGBOAT OPERATOR Med List neuropathic pain twice daily. Indications: neuropathic pain 12/25/2020 atenoloL (TENORMIN) 100 Take 100 mg mg tabletIndications: by mouth hypertension daily. Indications: high blood pressure documented as of this encounter Historical Medications * This list may reflect changes made after this encounter. Start Date End Date Medication Sig Dispensed Refills gabapentin (NEURONTIN) Take 300 mg 0 300 mg capsule by mouth five times daily. antiox Take 1 tablet 0 #8/om3/dha/epa/lut/zeax by mouth (PRESERVISION AREDS 2 daily. (OMEGA-3) PO) allopurinoL (ZYLOPRIM) Take 100 mg 0 100 mg tabletIndications: by mouth prevention of acute gout daily. Take attack with food. Indications: treatment to prevent acute gout attack 01/08/2021 SITagliptin-metformin Take 1 tablet 0 (JANUMET XR) 100-1,000 mg by mouth tabletIndications: type 2 daily. diabetes mellitus Indications: type 2 diabetes mellitus 12/11/2020 gabapentin (NEURONTIN) Take 300 mg 0 100 mg by mouth capsuleIndications: daily. neuropathic pain Indications: neuropathic pain 12/11/2020 gabapentin (NEURONTIN) Take 600 mg 0 600 mg tabletIndications: by mouth neuropathic pain twice daily. Indications: neuropathic pain 12/25/2020 atenoloL (TENORMIN) 100 Take 100 mg 0 mg tabletIndications: by mouth hypertension daily. Indications: high blood pressure added in this encounter Active and Recently Administered Medications Times are shown in CDT. 12/24/2020 12/25/2020 Medication Order 12/23/2020 0808 (Given - Provider: Khushboo Bearden RN) 0818 (Given - Provider: Pearl Fuller, PREETHI) allopurinoL (ZYLOPRIM) tablet 100 mg 1000 (Given - 100 mg, Oral, DAILY, First dose on Wed Provider: Michael green 12/18/20 at 1315, Until Discontinued PREETHI Bearden) 0808 (Given - Provider: Khushboo Bearden RN) 0818 (Given - Provider: Pearl Fuller, RN) aspirin chewable tablet 81 mg 1000 (Given - 81 mg, Oral, DAILY, First dose on Wed Provider: Natalia garcia 12/16/20 at 2000, Until Discontinued, PREETHI Bearden) Give first dose 8 hours after surgery. Hold if chest tube output >150 mL/day. Hold for platelet count <80,000. May give per NG tube. 1456 (Given - Provider: Khushboo Bearden RN) 0818 (Given - Provider: Pearl Fuller, PREETHI) clopiDOGrel (PLAVIX) tablet 75 mg 75 mg, Oral, DAILY, First dose on Tu12/24/20 at 1230, Until Discontinued, This Medication can increase the risk o f bleeding and may need to be held prior to surgery or invasive procedures. Consult physician in advance. 2106 (Given - Provider: Jeannine Madsen RN ) ezetimibe (ZETIA) tablet 10 mg 2013 (Given - 10 mg, Oral, AT BEDTIME DAILY, First Provider: Jeannine dose on Wed12/17/20 at 2100, Until PREETHI Madsen) Discontinued 0808 (Given - Provider: Khushboo Bearden RN) 0818 (Given - Provider: Pearl Fuller RN) furosemide (LASIX) tablet 40 mg 1000 (Given - 40 mg, Oral, DAILY, First dose on Wed Provider: Natalia garcia 12/23/20 at 0900, Until Discontinued PREETHI Bearden) 0630 (Given - Provider: Jeannine Madsen RN )1456 (Given - Provider: Khushboo Bearden RN)2107 (Given - Provider: Jeannine Madsen RN) 0618 (Given - Provider: Jeannine Madsen RN ) gabapentin (NEURONTIN) capsule 300 mg 0635 (Given - 300 mg, Oral, EVERY 8 HOURS, First dose Provider: Sneha red (after last modification) on Wed12/18/20 PREETHI Madsen) 1608 at 1400, Until Discontinued (Given - Provider: Khushboo Bearden RN)2258 (Given - Provider: Jeannine Madsen RN) 0630 (Given - Provider: Jeannine Madsen RN )1456 (Given - Provider: Khushboo Bearden RN)2107 (Given - Provider: Jeannine Madsen RN) 0618 (Given - Provider: Jeannine Madsen RN ) heparin (porcine) PF syringe 5,000 Units 0635 (Given - 5,000 Units, Subcutaneous, EVERY 8 Provider: Jeannine LEVI, First dose on Wed12/19/20 at PREETHI Madsen)1608 0830, Until Discontinued, NOTE: This is (Given - Pro vider: a HIGH ALERT Medication. Khushboo Bearden RN)2258 (Given - Provider: Jeannine Madsen RN) 0943 (Med Not Given - Provider: Khushboo Bearden RN - Reason: Order parameters not met)1131 (Med Not Given - Provider: Khushboo Bearden RN - Reason: Order parameters not met)1748 (Med Not Given - Provider: Khushboo Bearden RN - Reason: Order parameters not met)2228 (Med Not Given - Provider: Jeannine Madsen RN - Reason: Order parameters not met) 0750 (Med Not Given - Provider: Pearl Fuller RN - Reason: Order parameters not met)1100 (Due) insulin aspart (U-100) (NOVOLOG FLEXPEN 1016 (Med No t Given U-100 INSULIN) injection PEN 0-6 Units - Provider: Alva srivastava 0-6 Units, Subcutaneous, BEFORE MEALS PREETHI Bearden - R azeb: AND 2200, First dose on 12/21/20 at Order paramet ers not 1100, Until Discontinued, -POC glucose met - Comment : BG 181-220mg/dL at , , administer 1 131)1241 (Me d Not unit insulin, at , 03* administer 0 Given - Provid er: units. -POC glucose 221-260mg/dL at , Khushboo sharma RN - administer 2 units insulin, at Reason: Order * administer 1 unit. -POC glucose parameters n ot 261-300mg/dL at , , administer 3 met)1735 (Me d Not units insulin, at , * administer 2 Given - Provi catalina: units. -POC glucose 301-350mg/dL at , Bambi valdez RN - administer 4 units insulin, at Reason: Order * administer 3 units. -POC glucose parameters not 351-400mg/dL at , , administer 5 met)2302 (Me d Not units insulin, at , 03* administer 4 Given - Provi catalina: units. -POC glucose >400mg/dL at , , Jeannine Roth i RN - 17 administer 6 units insulin, at , Reason: Order 03* administer 5 units. *only if parameters not met ) ordered 5x's daily For POCT glucose >350mg/dL give correction bolus and recheck POCT glucose in 2 hours. If POC T glucose at 2 hours >300mg/dL call physician for further orders. For patients who are not eating meals, continue to administer the appropriate correction factor. NOTE: This is a HIGH ALERT Medication., Dispense pens manually with initial order and then upon request. DO NOT uncheck "Do not dispense" 2129 (Med Not Given - Provider: Jeannine pierre RN - Reason: Patient Refused) lidocaine (LIDODERM) 5 % topical patch 1 2013 (Med N ot Given patch - Provider: Jeannine Pugh patch, Topical, Administer over 12 PREETHI Madsen - Re ason: Hours, DAILY, First dose on Wed12/17/20 Patient Refu sed) at 2100, Until Discontinued, NURSING PLEASE NOTE: Apply patch ONCE DAILY to chest and REMOVE after designated duration. Apply only to intact skin. Patch may be cut to fit affected area. losartan (COZAAR) tablet 12.5 mg 1000 (Given - (CANCELED) Provider: Khushboo 12.5 mg, Oral, DAILY, First dose on [facility] PREETHI Bearden) 12/21/20 at 0900, Until Discontinued 807 (Given - Provider: Khushboo Bearden RN) 817 (Med Not Given - Provider: Pearl Fuller RN - Reason: Other (Comment) - Comment: holding per CARLA Cortez until systolics in 110s) losartan (COZAAR) tablet 25 mg 25 mg, Oral, DAILY, First dose (after last modification) on Wed12/24/20 at 0900, Until Discontinued 2106 (Given - Provider: Jeannine Madsen RN ) melatonin tablet 3 mg 2013 (Given - 3 mg, Oral, AT BEDTIME DAILY, First dose Provider: Sneha red on Wed12/19/20 at 2100, Until PREETHI Madsen) Discontinued metoprolol XL (TOPROL XL) tablet 12.5 mg 1001 (Given - (CANCELED) Provider: Khushboo 12.5 mg, Oral, TWICE DAILY, First dose PREETHI Bearden) on Wed12/22/20 at 2100, Until Discontinued, Hold for heart rate < 65 bpm or systolic BP < 95 tablets may be cut in half, DO NOT CRUSH or CHEW metoprolol XL (TOPROL XL) tablet 25 mg 2013 (Given - (CANCELED) Provider: Jeannine 25 mg, Oral, TWICE DAILY, First dose PREETHI Madsen) (after last modification) on Wed 1 at 2100, Until Discontinued, Hold for heart rate < 65 bpm or systolic BP < 95 tablets may be cut in half, DO NOT JORDY H or CHEW 2106 (Given - Provider: Jeannine Madsen RN ) metoprolol XL (TOPROL XL) tablet 25 mg 25 mg, Oral, AT BEDTIME DAILY, First dose (after last modification) on Wed12/24/20 at 2100, Until Discontinued, Hold for heart rate < 65 bpm or systoli c BP < 95 tablets may be cut in half, DO NOT CRUSH or CHEW 0944 (Med Not Given - Provider: Khushboo Bearden RN - Reason: Patient Refused)213 (Med Not Given - Provider: Jeannine Madsen RN - Reason: Patient Refused) 0900 (Planned Hold - Provider: Pearl lockwood RN - Comment: pt refused d/t long drive home) polyethylene glycol 3350 (MIRALAX) 1015 (Med Not Giv en packet 17 g - Provider: Khushboo 17 g (1 packet), Oral, TWICE DAILY, PREETHI Bearden - Aletha son: First dose on Wed12/16/20 at 2100, Until Patient Ref used)2014 Discontinued, 8.5 GRAMS = 0.5 PACKET 17 (Med Not Giv en - GRAMS = 1 PACKET 34 GRAMS = 2 PACKETS Provider: Jay Madsen RN - Reason: Patient Refused) 1127 (Given - Provider: Khushboo Bearden RN) rosuvastatin (CRESTOR) tablet 10 mg 10 mg, Oral, EVERY 72 HOURS, First dose on Wed12/12/20 at 0945, Until Discontinued 0944 (Med Not Given - Provider: Khushboo Bearden RN - Reason: Patient Refused)2129 (Med Not Given - Provider: Jeannine Madsen RN - Reason: Patient Refused) 0900 (Planned Hold - Provider: Pearl lockwood RN - Comment: pt refused d/t long drive home) senna/docusate (SENOKOT-S) tablet 2 1016 (Med Not Gi allison tablet - Provider: Khushboo 2 tablet, Oral, TWICE DAILY, First dose PREETHI Bearden - Reason: on Wed12/17/20 at 0900, Until Patient Refused)2014 Discontinued, Start POD #1. Hold for (Med Not Given - loose stools. Provider: Jeannine Madsen RN - Reason: Patient Refused) 0808 (Given - Provider: Khushboo Bearden RN) 0818 (Given - Provider: Pearl Fuller, PREETHI) SITagliptin (JANUVIA) tablet 100 mg 1001 (Given - 100 mg, Oral, DAILY, First dose on Sat Provider: Michael green 12/21/20 at 1045, Until Discontinued PREETHI Bearden) 0808 (Given - Provider: Khushboo Bearden, PREETHI) 0818 (Given - Provider: Peral Fuller, PREETHI) spironolactone (ALDACTONE) tablet 25 mg 1001 (Given - 25 mg, Oral, DAILY, First dose on Fri Provider: Natalia garcia 12/20/20 at 0900, Until Discontinued, PREETHI Bearden) NURSING: Please educate patient and document: Avoid using salt substitutes which have a high potassium content (Nu-Salt). 12/24/2020 12/25/2020 Medication Order 12/23/2020 acetaminophen (TYLENOL) rectal 1101 (See suppository 650 mg(Linked Group 1) Alternative - 650 mg, Rectal, EVERY 6 HOURS PRN, Provider: Bambi Starting on 12/21/20 at 0000, Until PREETHI Woodson ) Wed12/25/20 at 1308, Pain non-opioid: may be used alone or in combination wit h opioid analgesia, Temp > 38.5 C, Start POD #5, 6 hours after last scheduled acetaminophen dose. ACETAMINOPHEN DOSE NOT TO EXCEED 4GM DAILY. acetaminophen (TYLENOL) tablet 650 1101 (Canceled En try mg(Linked Group 1) - Provider: Bambi 650 mg, Oral, EVERY 6 HOURS PRN, PREETHI Woodson) Starting on 12/21/20 at 0000, Until Wed12/25/20 at 1308, Pain non-opioid: may be used alone or in combination wit h opioid analgesia, Temp > 38.5 C, Start POD #5, 6 hours after last scheduled acetaminophen dose. ACETAMINOPHEN DOSE NOT TO EXCEED 4GM DAILY. alum/mag hydroxide/simeth (MYLANTA) ora l suspension 30 mL 30 mL, Oral, EVERY 4 HOURS PRN, Starting Wed12/16/20 at 1221, Until Wed12/25/20 at 1308, Indigestion/Heartburn, May give per NG tube bisacodyL (DULCOLAX) rectal suppository 10 mg 10 mg, Rectal, DAILY PRN, Starting Wed12/16/20 at 1221, Until Wed12/25/20 at 1308, Constipation ME, Hold for loose stools. hydrALAZINE (APRESOLINE) injection 10 m g 10 mg, Intravenous, EVERY 6 HOURS PRN, Starting on Wed12/16/20 at 1221, Until Wed12/25/20 at 1308, Systolic Blood Pressure..., >160 mmHg lidocaine PF syringe 58 mg 58 mg (rounded from 58.1 mg = 1 mg/kg 58.1 kg), Intravenous, NEEDED, Starting Wed12/16/20 at 1221, Until Wed12/25/20 at 1308, Other..., greater than 5 PVCs/min, mutifocal PVCs, bigeminy or sustained VT, Notify physician if given . (To be given in ICU only). magnesium oxide (MAGOX) tablet 200-600 mg(Linked Group 2) 200-600 mg, Oral, NEEDED, Starting o n Wed12/16/20 at 1221, Until Wed12/25/20 at 1308, magnesium replacement (see admin instructions), Delivers 241.3mg elemental magnesium per tab Use tablet if patient tolerating PO; use IV if not tolerating PO. If urine output < 30 mL/hr, SCr >2 mg/dL, check with physician prior to giving magnesium replacement. For Serum Magnesium > 2.1 mg/dL, No replacement necessary. For Serum Magnesium 1.8 - 2.0 mg/dL, give Magnesium Oxide 200mg PO once. For Serum Magnesium 1.6 - 1.7 mg/dL, give Magnesium Oxide 400mg PO once For Serum Magnesium 1.3 - 1.5 mg/dL, give Magnesium Oxide 600mg PO once. For Seru m Magnesium < = 1.2 mg/dL, give Magnesium Sulfate 6 grams IV over 18 hours (each 1gm over 3 hours). Recheck serum magnesium level 24 hours after START of appropriate replacement dose. Repeat this standing order x 1. Notify physician if serum magnesium < 2.1 mg/d L after two replacements. magnesium sulfate 1 g/D5W 100 mL IVPB(Linked Group 2) 1 g, Intravenous, 100 mL, Administer over 3-4 Hours, NEEDED, Starting on Wed12/16/20 at 1221, Until Wed12/25/20 at 1308, magnesium replacement (see admin instructions), Use tablet if patient tolerating PO; use IV if not tolerating PO. If urine output < 30 mL/hr, SCr >2 mg/dL, check with physician prior to giving magnesium replacement. For Serum Magnesium > 2.1 mg/dL, No replacement necessary. For Serum Magnesium 1.8 - 2.0 mg/dL, give Magnesium Sulfate 1 grams IV over 4 hours. For Serum Magnesium 1.6 - 1.7 mg/dL, give Magnesium Sulfate 2 grams I V over 8 hours (each 1gm over 4 hours). For Serum Magnesium 1.3 - 1.5 mg/dL, give Magnesium Sulfate 4 grams IV over 16 hours (each 1gm over 4 hours). For Serum Magnesium < = 1.2 mg/dL, give Magnesium Sulfate 6 grams IV over 18 hours (each 1gm over 3 hours). Recheck serum magnesium level 24 hours after START of appropriate replacement dose. Repeat this standing order x 1. Notify physician if serum magnesium < 2.1 mg/d L after two replacements. meclizine (ANTIVERT) tablet 12.5 mg 12.5 mg, Oral, THREE TIMES DAILY PRN, Starting on Yanni 12/19/20 at 1305, Until Wed12/25/20 at 1308, Vertigo/Motion Sickness milk of magnesia (CONC) oral suspension 10 mL 10 mL, Oral, DAILY PRN, Starting Wed12/16/20 at 1221, Until Wed12/25/20 at 1308, Constipation PO, May give per NG tube. 10 mL CONC = 30 mL MOM nalOXone (NARCAN) injection 0.08 mg 0.08 mg, Intravenous, NEEDED, Starting on Wed12/16/20 at 1951, Until Wed12/25/20 at 1308, Respiratory Depression, -FOR RESPIRATORY RATE <7/MIN: Dilute one ampule naloxone 0.4 mg in 9 mL NS for injection (for a tota l of 10 mL of dilution). Inject 2 mL of diluted naloxone q 2 minutes until respiratory rate improves (RR >7/min) and/or drowsiness abates. Call physician. -IF PATIENT IS APNEIC: Give naloxone 0.4 mg q 2 minutes until respiratory rate improves (RR >7/min) and call Rapid Response Team. , PROTECT FROM LIGHT ondansetron (ZOFRAN ODT) rapid dissolve tablet 4 mg(Linked Group 3) 4 mg, Oral, EVERY 6 HOURS PRN, Startin g on Wed12/16/20 at 1221, Until Wed12/25/20 at 1308, Nausea/Vomiting PO, (May use for PO or NG) ondansetron (ZOFRAN) injection 4 mg(Linked Group 3) 4 mg, Intravenous, EVERY 6 HOURS PRN, Starting on Wed12/16/20 at 1221, Until Wed12/25/20 at 1308, Nausea/Vomiting Injectable potassium chloride in water IVPB 10 1000 (See mEq(Linked Group 4) Alternative - 10 mEq, Intravenous, 50 mL, Administer Provider: Michael green over 60 Minutes, NEEDED, Starting on PREETHI Bearden) Wed12/16/20 at 1221, Until Wed12/25/20 at 1308, See admin instructions, Use tablet or suspension if patient tolerating PO; use IV if not tolerating PO. It urine output <30 mL/hr or SCr >2 mg/dL, check with physician prior to giving K+ replacement. - For K+ 4.0-4.3, give potassium chloride 10 mEq IV over 1 hour* - For K+ 3.5-3.9, give potassium chloride 20 mEq IV over 2 hours* - For K+ 3.0-3.4, give potassium chloride 30 mEq IV over 3 hours* - For K+ <3, give potassium chloride 40 mEq I V over 4 hours* - *May increase rate to 2 0 mEq/hr if patient has central line - Check K+ 1 hour after end of each replacement dose. Follow K+ replacement orders based on result. NOTE: This is a HIGH ALERT Medication. potassium chloride oral solution 20-40 1000 (See mEq(Linked Group 4) Alternative - 20-40 mEq, Per NG tube, NEEDED, Provider: Khushboo Starting on Wed12/16/20 at 1221, Until PREETHI Bearden) Wed12/25/20 at 1308, Other..., See admi n instructions, If urine output <30 mL/hr or SCr >2 mg/dL, check with physician prior to giving K+ replacement. - For K + 4.0-4.3, give potassium chloride 20 mEq PO/NG x 1 dose - For K+ 3.5-3.9, give potassium chloride 40 mEq PO/NG x 1 dos e - For K+ <3.5, give potassium chloride 40 mEq PO/NG every 4 hours x 2 doses - Check K+ in the AM if potassium >= 3.5 and replacement given - Check K+ 4 hour s after last replacement dose given if K+ <3.5, then repeat replacement orders if needed. potassium chloride SR (K-DUR) tablet 1000 (Given - 20-40 mEq(Linked Group 4) Provider: Khushboo 20-40 mEq, Oral, NEEDED, Starting on PREETHI Bearden) 12/16/20 at 1221, Until Wed12/25/20 at 1308, Other..., See admin instructions, If urine output <30 mL/hr or SCr >2 mg/dL, check with physician prior to giving K+ replacement. - For K + 4.0-4.3, give potassium chloride 20 mEq PO/NG x 1 dose - For K+ 3.5-3.9, give potassium chloride 40 mEq PO/NG x 1 dos e - For K+ <3.5, give potassium chloride 40 mEq PO/NG every 4 hours x 2 doses - Check K+ in the AM if potassium >= 3.5 and replacement given - Check K+ 4 hour s after last replacement dose given if K+ <3.5, then repeat replacement orders if needed. Give with meal or full glass of water traMADoL (ULTRAM) tablet 25 mg 25 mg, Oral, EVERY 6 HOURS PRN, Starting on Wed12/18/20 at 2019, Until Wed12/25/20 at 1308, Pain PO Order Group 1: acetaminophen (TYLENOL) tablet 650 mgJu mp to med 650 mg, Oral, EVERY 6 HOURS PRN, Start ing on 12/21/20 at 0000, Until Wed12/25/20 at 1308, Pain non-opioid: may be used alone or in com bination with opioid analgesia, Temp > 38.5 C
Start POD #5, 6 hours after last scheduled acetam inophen dose. ACETAMINOPHEN DOSE NOT TO EXCEED 4GM DAILY.
Or acetaminophen (TYLENOL) rectal supposit ory 650 mgJump to med 650 mg, Rectal, EVERY 6 HOURS PRN, Sta rting on 12/21/20 at 0000, Until Wed12/25/20 at 1308, Pain non-opioid: may be used alone or in com bination with opioid analgesia, Temp > 38.5 C
Start POD #5, 6 hours after last scheduled acetam inophen dose. ACETAMINOPHEN DOSE NOT TO EXCEED 4GM DAILY.
Group 2: magnesium sulfate 1 g/D5W 100 mL IVPB Jump to med 1 g, Intravenous, 100 mL, Administer ov er 3-4 Hours, NEEDED, Starting on Wed12/16/20 at 1221, Until Wed12/25/20 at 1308, magnesium re placement (see admin instructions)
Use tablet if patient tolerating PO; use IV if not tolerating PO. If urine output < 30 mL/hr, SCr >2 mg/dL, check with physician prior to giving ma gnesium replacement. For Serum Magnesium > 2.1 mg/dL, No replacement necessary. F or Serum Magnesium 1.8 - 2.0 mg/dL, give Magnesium Sulfate 1 grams IV over 4 hours. For Serum Magnesium 1.6 - 1.7 mg/dL, give Magnesium Sulfate 2 grams IV over 8 hours (each 1gm over 4 hours). & nbsp;For Serum Magnesium 1.3 - 1.5 mg/dL, give Magnesium Sulfate 4 grams IV over 16 hours (each 1gm over 4 hours). For Serum Magnesium < = 1.2 mg/dL, give Magnesium Sulfate 6 grams IV over 18 hours (each 1gm over 3 hours). Recheck serum magnesium level 24 hours after START of appropriate replacement dose. Repeat this standing order x 1. Notify physician if serum magnesium < 2.1 mg/dL after two replacements.
Or magnesium oxide (MAGOX) tablet 200-600 mgJump to med 200-600 mg, Oral, NEEDED, Starting o n 12/16/20 at 1221, Until Wed12/25/20 at 1308, magnesium replacement (see admin instructions)
Delivers 241.3mg elemental magnesium per tab Use tablet if patient tolerating PO; use IV if not tolerating PO. If urine output < 30 mL/hr, SCr >2 mg/dL, check with physician prior to gi ving magnesium replacement. For Serum Magnesium > 2.1 mg/dL, No replacement necessary.&nb sp;For Serum Magnesium 1.8 - 2.0 mg/dL, give Magnesium Oxide 200mg PO once. For Serum Magnesiu m 1.6 - 1.7 mg/dL, give Magnesium Oxide 400mg PO once For Serum Magnesium 1.3 - 1.5 mg/dL, give Magnesium Oxide 600mg PO once. For Serum Magnesium < = 1.2 mg/dL, give Magnesium Sulfate 6 grams IV over 18 hours (each 1gm over 3 hours). Recheck serum magne sium level 24 hours after START of appropriate replacement dose. Repeat this standing order x 1. N otify physician if serum magnesium < 2.1 mg/dL after two replacements.
Group 3: ondansetron (ZOFRAN ODT) rapid dissolve tablet 4 mgJump to med 4 mg, Oral, EVERY 6 HOURS PRN, Startin g on Wed12/16/20 at 1221, Until Wed12/25/20 at 1308, Nausea/Vomiting PO
(May use for PO o r NG)
Or ondansetron (ZOFRAN) injection 4 mgJump to med 4 mg, Intravenous, EVERY 6 HOURS PRN, Starting on Wed12/16/20 at 1221, Until Wed12/25/20 at 1308, Nausea/Vomiting Injectable Group 4: potassium chloride SR (K-DUR) tablet 20 -40 mEqJump to med 20-40 mEq, Oral, NEEDED, Starting on Wed12/16/20 at 1221, Until Wed12/25/20 at 1308, Other..., See admin instructions
If urine outp ut <30 mL/hr or SCr >2 mg/dL, check with physician prior to giving K+ replacement. - For K+ 4. 0-4.3, give potassium chloride 20 mEq PO/NG x 1 dose - For K+ 3.5-3.9, give potassium chloride 40 mEq PO/NG x 1 dose - For K+ <3.5, give potassium chloride 40 mEq PO/NG every 4 hours x 2 doses - Check K+ in the AM if potassium >= 3.5 and replacement given - Check K+ 4 dorothea rs after last replacement dose given if K+ <3.5, then repeat replacement orders if needed. &nb sp;Give with meal or full glass of water
Or potassium chloride oral solution 20-40 mEqJump to med 20-40 mEq, Per NG tube, NEEDED, Star ting on Wed12/16/20 at 1221, Until Wed12/25/20 at 1308, Other..., See admin instructions
If urine output <30 mL/hr or SCr >2 mg/dL, check with physician prior to giving K+ replacement. - For K+ 4.0-4.3, give potassium chloride 20 mEq PO/NG x 1 dose - For K+ 3.5-3.9, give potass ium chloride 40 mEq PO/NG x 1 dose - For K+ <3.5, give potassium chloride 40 mEq PO/NG every 4 hours x 2 doses - Check K+ in the AM if potassium >= 3.5 and replacement given - Check K+ 4 hours after last replacement dose given if K+ <3.5, then repeat replacement orders if needed. &n bsp;
Or potassium chloride in water IVPB 10 mEq Jump to med 10 mEq, Intravenous, 50 mL, Administer over 60 Minutes, NEEDED, Starting on Wed12/16/20 at 1221, Until Wed12/25/20 at 1308, See admin in structions
Use tablet or suspension if patient tolerating PO; use IV if not tolerating PO. It uri ne output <30 mL/hr or SCr >2 mg/dL, check with physician prior to giving K+ replacement. - For K+ 4.0-4.3, give potassium chloride 10 mEq IV over 1 hour* - For K+ 3.5-3.9, give potas sium chloride 20 mEq IV over 2 hours* - For K+ 3.0-3.4, give potassium chloride 30 mEq IV over 3 hours* - For K+ <3, give potassium chloride 40 mEq IV over 4 hours* - *May increase rate to 20 mEq/hr if patient has central line - Check K+ 1 hour after end of each replacement dose . Follow K+ replacement orders based on result. NOTE: This is a HIGH ALERT Medication.
documented in this encounter Orders First Ordered Date Medications Ordered That Might Not Have Count Last Ordered Date Been Administered Patch Documentation - Scopolamine base 1 12/19/2020 1MG/72HR 1 patch QUEtiapine (SEROquel) tablet 12.5 mg 1 0 12/19/2020 scopolamine (TRANSDERM-SCOP) 1mg over 3 1 12/19/2020 days patch 1 patch 12/07/2020 SODIUM CHLORIDE 0.9 % IV SOLP (Cabinet 3 12/18/2020 Override) fentaNYL citrate PF (SUBLIMAZE) 1 2020 injection 12.5 mcg heparin (porcine) 5,000 Units in 1 12/17 lactated ringers (LR) 500 mL irrigation acetaminophen (TYLENOL) rectal 1 021 suppository 650 mg acetaminophen (TYLENOL) tablet 650 mg 1 12/16/2020 alum/mag hydroxide/simeth (MYLANTA) oral 1 12/16/2020 suspension 30 mL atropine injection syringe 0.5 mg 1 12/0512/11/2020 bisacodyL (DULCOLAX) rectal suppository 2 12/16/2020 10 mg heparin (porcine) 20,000 Units in 1 12/05 electrolyte-A (PLASMA-LYTE A PH 7.4) 1,000 mL irrigation LIDOCAINE (PF) 10 MG/ML (1 %) IJ SOLN 1 12/16/2020 (Cabinet Override) lidocaine PF 1% (10 mg/mL) injection 0.2 1 12/16/2020 mL lidocaine PF syringe 58 mg 1 12/16/2020 magnesium oxide (MAGOX) tablet 200-600 1 12/16/2020 mg 12/07/2020 magnesium sulfate 1 g/D5W 100 mL IVPB 2 12/16/2020 milk of magnesia (CONC) oral suspension 1 12/16/2020 10 mL nalOXone (NARCAN) injection 0.08 mg 1 ondansetron (ZOFRAN ODT) rapid dissolve 1 12/16/[address] tablet [address] (PROTONIX) tablet 40 mg 1 12/16/2020 papaverine 60 mg in sodium chloride 0.9% 1 12/16/2020 (NS) 20 mL IV syr 12/12/2020 sodium chloride 0.9 % infusion 2 12/16 vancomycin (VANCOCIN) injection 1 2020 vasopressin (VASOSTRICT) 20 Units in 1 0 12/16/2020 sodium chloride 0.9% (NS) 100 mL IV dri p (std conc) metoprolol tartrate (LOPRESSOR) tablet 1 12/10/2020 25 mg furosemide (LASIX) injection 20 mg 1 09/2020 calcium gluconate 1 g in sodium chloride 1 12/07/2020 0.9% (NS) 110 mL IVPB (MB+) nitroGLYCERIN 50 mg/D5W 250 mL infusion 1 12/07/2020 ondansetron (ZOFRAN) injection 4 mg 1 sodium phosphate 16 mmol in dextrose 5% 1 12/07/2020 (D5W) 250 mL IVPB sodium phosphate 20 mmol in dextrose 5% 1 12/07/2020 (D5W) 250 mL IVPB sodium phosphate 28 mmol in dextrose 5% 1 12/07/2020 (D5W) 250 mL IVPB First Ordered Date Lab Orders Without Results Count Last Ordere d Date CBC AND DIFF 1 12/07/2020 COMPREHENSIVE METABOLIC PANEL 1 12/08/19 21 COVID-19 (SARS-COV-2) PCR 1 12/07/2020 HEMOGLOBIN A1C 1 12/07/2020 LACTIC ACID (BG - RAPID LACTATE) 1 12/07 PROTIME INR (PT) 1 12/07/2020 PTT (APTT) 1 12/07/2020 TROPONIN-I 2 12/07/2020 TSH WITH FREE T4 REFLEX 1 12/07/2020 URINALYSIS DIPSTICK 1 12/07/2020 URINALYSIS, MICROSCOPIC 1 12/07/2020 First Ordered Date EKG Orders Without Results Count Last Ordere d Date 12/07/2020 ECG 12-LEAD 4 12/17/2020 First Ordered Date Procedures Count Last Ordered Date CONSULT IV THERAPY TEAM 1 12/14/2020 First Ordered Date Immunization/Injection Count Last Ordered Da te COVID-19 (MODERNA) VACCINE 2ND DOSE APPT 1 12/25/2020 First Ordered Date Diet Count Last Ordered Date DISCHARGE DIET CARDIAC 1 12/25/2020 DISCHARGE DIET DIABETIC 1 12/25/2020 First Ordered Date Nursing Count Last Ordered Date CARDIAC REHAB 1 12/25/2020 DISCHARGE ACTIVITY OTHER 1 12/25/2020 DISCHARGE CONTACT 1 12/25/2020 DISCHARGE INCISION CARE 1 12/25/2020 DISCHARGE RETURN APPOINTMENT 3 DISCHARGE SIGNS/SYMPTOMS 1 12/25/2020 DISCHARGE WOUND CARE 1 12/25/2020 RISK REDUCTION PLAN 1 12/25/2020 NURSE COMMUNICATION 1 12/18/2020 COVID-19 TESTING NOT REQUIRED 1 12/14/19 First Ordered Date Consult Count Last Ordered Date 12/11/2020 CONSULT HEART FAILURE PHYSICIAN 2 2020 CONSULT REHABILITATION MEDICINE 1 2020 PHYSICIAN CONSULT VASCULAR SURGERY PHYSICIAN 1 CONSULT DENTAL 1 12/11/2020 First Ordered Date OT Count Last Ordered Date 12/07/2020 OT CONSULT OCCUPATIONAL THERAPY 2 2020 First Ordered Date PT Count Last Ordered Date PT CONSULT PHYSICAL THERAPY 1 12/07/2020 First Ordered Date Admission Count Last Ordered Date CLARIFICATION ORDER - FOR ADT ADMIN USE 1 12/20/2020 ONLY ADMIT TO INPATIENT (NO BED REQUEST) 1 First Ordered Date Transfer Count Last Ordered Date 12/08/2020 TRANSFER PATIENT (BED REQUEST) 2 021 First Ordered Date Discharge Count Last Ordered Date DISCHARGE PATIENT NOW 1 12/25/2020 First Ordered Date Equipment Count Last Ordered Date COMPRESSION DEVICE, LEG 1 12/16/2020 HEMOSPHERE MONITOR 1 12/16/2020 PUMP IV CONTROL UNIT W/MODULES 2 021 WARMER, DMITRIY HUGGER 1 12/16/2020 HEATING, MACHINE AK WITH PAD 1 First Ordered Date Vital Signs Count Last Ordered Date VITAL SIGNS 1 12/16/2020 First Ordered Date Activity Count Last Ordered Date MOBILITY 1 12/16/2020 First Ordered Date Discharge Contingent Count Last Ordered Date DISCHARGE PATIENT CONTINGENT 1 First Ordered Date SPECIALITY EQUIPMENT Count Last Ordered Date FAN 1 12/16/2020 First Ordered Date RT One-Time Procedures Count Last Ordered Da te EXTUBATE PATIENT 1 12/17/2020 First Ordered Date Appointment Request Count Last Ordered Date APPOINTMENT REQUEST: CARDIAC REHAB 1 APPOINTMENT REQUEST: VASCULAR SERVICES 1 12/19/2020 First Ordered Date Intake & Output Count Last Ordered Date INTAKE AND OUTPUT 1 12/16/[address] & Maintain Count Last Ordered Date PLACE AND MAINTAIN SCD 1 12/16/2020 First Ordered Date Case Request Count Last Ordered Date CASE REQUEST 1 12/13/2020 First Ordered Date ADT Patient Update Count Last Ordered Date 12/08/2020 CHANGE SERVICE / LEVEL OF CARE (NO BED 3 12/19/2020 REQUEST) documented in this encounter Additional Health Concerns Assessment Noted Time A fall risk assessment has been completed for the pat ient 12/25/2020 7:45 AM CDT documented as of this encounter
--- OUTSIDE RECORDS SUMMARY | 2021-02-18 20:00 | XMS REPORT | Clinical Summary ---
Author Author [facility] Address Unknown Phone Unavailable Care Team Providers Care Valuation Consultant Name Role Phone PCP Unavailable Allergies Not on File Medications Not on file Active Problems Not on file Encounters Care Team Description Date Type Specialty Ángel Donaldson ("V")MD Diagnosis deferred 12/16/2020 Hospital Lab Encounter Ángel Donaldson ("V")MD Diagnosis deferred (Primary Dx) 12/16/2020 Transcribe Lab Orders from Last 3 Months Social History Date Tobacco Use Types Packs/Day Years Used Never Assessed Sex Assigned at Date Recorded Not on file Last Filed Vital Signs Not on file Plan of Treatment Not on file Procedures Comments Procedure Name Priority Date/Time Associated Diag nosis ACUTE HEPATITIS PANEL Routine 12/16/2020 Diagnosi s deferred 12:01 PM CDT from Last 3 Months Results * Acute Hepatitis Panel (12/16/2020 12:01 PM CDT) Hepatitis B Non-reactive Non-reactive [facility] Core Ab [facility] Hepatitis B Non-reactive Non-reactive [facility] Hepatitis C Ab Non-reactive Non-reactive [facility] Hepatitis A Ab Non-reactive Non-reactive [facility] Specimen Blood Performing Organization Address City/State/ZIP Code P narendra Number [place] [id number] [place] [address] LABORATORIES [facility] [address] [place] [address] from Last 3 Months
[2021-02-18 20:39] LABS: HEMATOCRIT 40 % (35-52); HEMOGLOBIN 12.8 g/dL (11.5-16.0); MEAN CORPUSCULAR HEMOGLOBIN 30 pg (25-34); MEAN CORPUSCULAR HGB CONC 32 g/dL (32-36); MEAN CORPUSCULAR VOLUME 93 fL (80-99); MEAN PLATELET VOLUME 9.4 fL (9.0-12.2); PLATELET COUNT 288 10^3/uL (130-400); WHITE BLOOD COUNT 8.6 10^3/uL (4.3-11.0)
[2021-02-18] MEDS ORDERED: APIXABAN 5 MG (ELIQUIS) TABLET PO ONE (21:30)
--- NOTE | 2021-02-18 21:42 | ED Lower Extremity ---
General Chief Complaint: Lower Extremity Stated Complaint: R LEG PAIN, POST BYPASS SURGERY Nursing Triage Note: Pt here with concern for blood clot in her left leg; states she has had blood clot in this leg before s/p CABG and is having similar s/s. C/o right leg is colder than the left and pain at the prior incision site where a blood clot was removed in December, just medial to the lower thigh, above the knee. Source: patient Exam Limitations: no limitations History of Present Illness Date Seen by Provider: Feb 18, 2021 Time Seen by Provider: 20:05 Initial Comments This is 75-year-old woman presents to the emergency room with complaint of pain in the right medial thigh. She had CABG in December and reports after that she had a blood clot in the right leg. By description it seems that this was likely arterial. She had it surgically resected. She is now having pain in the region of that scar. She is also concerned that her children could not palpate a pedal pulse on the right and she thinks that her leg feels cooler than the left. She takes Plavix but is not anticoagulated at this time. Allergies and Home Medications Allergies Coded Allergies: No Known Drug Allergies (Unverified , 12/06/20) Patient Home Medication List Home Medication List Reviewed: Yes Acetaminophen (Tylenol) 325 Mg Tablet, 650 MG PO Q6H PRN for PAIN-MILD (1-4), (Reported) Entered as Reported by: ASH MARTINEZ on 12/25/20 1022 Allopurinol (Allopurinol) 100 Mg Tablet, 100 MG PO DAILY Prescribed by: OTTO SHI on 01/02/212045 Aspirin (Aspirin) 81 Mg Tab.chew, 81 MG PO DAILY Prescribed by: OTTO SHI on 01/02/212045 Clopidogrel Bisulfate (Clopidogrel) 75 Mg Tablet, 75 MG PO DAILY Prescribed by: OTTO SHI on 01/02/212045 Ezetimibe (Ezetimibe) 10 Mg Tablet, 10 MG PO HS Prescribed by: OTTO SHI on 01/02/212045 Furosemide (Furosemide) 40 Mg Tablet, 40 MG PO DAILY Prescribed by: OTTO SHI on 01/02/212045 Gabapentin (Neurontin) 300 Mg Capsule, 300 MG PO 0700,1200 Prescribed by: OTTO SHI on 01/02/212045 Gabapentin (Neurontin) 300 Mg Capsule, 300-600 MG PO HS Prescribed by: OTTO SHI on 01/02/212045 Losartan Potassium (Losartan Potassium) 25 Mg Tablet, 12.5 MG PO DAILY Prescribed by: OTTO SHI on 01/02/21525 Metoprolol Succinate (Metoprolol Succinate) 25 Mg Tab.er.24h, 25 MG PO HS Prescribed by: OTTO SHI on 01/02/212045 Potassium Chloride (K-Tab ER) 20 Meq Tablet.er, 20 MEQ PO DAILY Prescribed by: OTTO SHI on 01/02/212045 Rosuvastatin Calcium (Rosuvastatin Calcium) 10 Mg Tablet, 10 MG PO Q72H Prescribed by: OTTO SHI on 01/02/212045 Sennosides/Docusate Sodium (Senna-S Tablet) 1 Each Tablet, 2 EACH PO BID Prescribed by: OTTO SHI on 01/02/212045 Sitagliptin Phosphate (Januvia) 50 Mg Tablet, 50 MG PO DAILY Prescribed by: OTTO SHI on 01/02/21525 Spironolactone (Spironolactone) 25 Mg Tablet, 12.5 MG PO DAILY Prescribed by: OTOT SHI on 01/02/21525 Tramadol HCl (Tramadol HCl) 50 Mg Tablet, 50 MG PO BID PRN for PAIN-MILD (1-4) Prescribed by: OTTO SHI on 01/02/212049 Vit C/E/Zn/Coppr/Lutein/Zeaxan (Preservision Areds 2 Softgel) 1 Each Capsule, 1 EACH PO DAILY, (Reported) Entered as Reported by: ASH MARTINEZ on 12/25/20 1022 Review of Systems Constitutional: no symptoms reported EENTM: no symptoms reported Respiratory: no symptoms reported Cardiovascular: see HPI Gastrointestinal: no symptoms reported Genitourinary: no symptoms reported : No Musculoskeletal: see HPI Skin: no symptoms reported Psychiatric/Neurological: No Symptoms Reported Past Fqrikmh-[id number]-Biwhfk Hx Patient Social History Tobacco Use?: No Smoking Status: Never a Smoker Substance use?: No Immunizations Up To Date First/Initial COVID19 Vaccinat: 12/25/20 Second COVID19 Vaccination Jose: 12/25/20 Past Medical History Surgery/Hospitalization HX: CABG ON 12/16/20. RIGHT LOWER EXTREMITY THROMBECTOMY ON 12/17/20. HX OF HTN, HIGH CHOLESTEROL, CHF, DM, COVID-19 IN JUNE 2020. GALLBLADDER, TUBAL LIGATION, APPENDECTOMY. Surgeries: Yes CABG, Open Heart Surgery Respiratory: No Cardiac: Yes Cardiomyopathy, Coronary Artery Disease, High Cholesterol, Hypertension : No Genitourinary: No Gastrointestinal: No Musculoskeletal: Yes Chronic Back Pain, Gout Endocrine: Yes Diabetes, Non-Insulin dep HEENT: No Cancer: No Psychosocial: No Integumentary: No Physical Exam Vital Signs Vital Signs - First Documented 02/18/21 20:15 Temp 35.9 Pulse 109 Resp 18 B/P (MAP) 157/81 (106) Pulse Ox 98 O2 Delivery Room Air Capillary Refill : Less Than 3 Seconds Height, Weight, BMI Height: '" Weight: lbs. oz. kg; 20.00 BMI Method: General Appearance: WD/WN, no apparent distress HEENT: normal ENT inspection Neck: normal inspection Cardiovascular: regular rate, rhythm, no murmur Respiratory: lungs clear, normal breath sounds, no respiratory distress Legs: right leg other (Patient has tenderness on the right medial thigh near the location of her thrombectomy scar. Calf is nontender. There is no erythema or heat.) Feet: right foot other (Positive dorsal and posterior pedal pulses by Doppler. Pulses not palpable by finger. Capillary refill brisk. Temperature roughly equal to left foot) Neurologic/Psychiatric: alert, normal mood/affect, oriented x 3 Skin: normal color, warm/dry Progress/Results/Core Measures Results/Orders Lab Results Laboratory Tests Test 02/18/21 20:26 Range/Units White Blood Count 8.6 4.3-11.0 10^3/uL Red Blood Count 4.29 3.80-5.11 10^6/uL Hemoglobin 12.8 11.5-16.0 g/dL Hematocrit 40 35-52 % Mean Corpuscular Volume 93 80-99 fL Mean Corpuscular Hemoglobin 30 25-34 pg Mean Corpuscular Hemoglobin Concent 32 32-36 g/dL Red Cell Distribution Width 15.0 H 10.0-14.5 % Platelet Count 288 130-400 10^3/uL Mean Platelet Volume 9.4 9.0-12.2 fL D-Dimer 1.57 H 0.00-0.49 UG/ML My Orders Orders - ARIK POTTER MD Cbc No Diff (02/18/21 20:17) Fibrin Degradation Products (02/18/21 20:17) Apixaban Tablet (Eliquis Tablet) (02/18/21 21:30) Medications Given in ED Current Medications Medications Dose Ordered Sig/Alex Route Start Time Stop Time Status Last Admin Dose Admin Apixaban 10 mg ONCE ONCE PO 02/18/21 21:30 02/18/21 21:31 DC 02/18/21 22:03 10 MG Vital Signs/I&O 02/18/21 02/18/21 20:15 22:04 Temp 35.9 35.9 Pulse 109 105 Resp 18 16 B/P (MAP) 157/81 (106) 148/75 Pulse Ox 98 98 O2 Delivery Room Air Room Air Blood Pressure Mean: 106 Progress Progress Note : Progress Note Pulses were heard by Doppler both at the dorsal and posterior pedal positions. Capillary refill was still brisk. D-dimer was obtained and was elevated. Patient was given a dose of Eliquis 10 mg and then instructed to return at 7:30 for venous and arterial ultrasound. Departure Impression Primary Impression: Right leg pain Additional Impressions: Elevated d-dimer History of arterial thrombosis Disposition: HOME, SELF-CARE Condition: Stable Departure-Patient Inst. Decision time for Depature: 21:37 Referrals: NO,LOCAL PHYSICIAN (PCP/Family) Primary Care Physician Patient Instructions: Deep Vein Thrombosis (DVT) ED Add. Discharge Instructions: Return to the hospital at 7:30 tomorrow morning with your ultrasound order form. Remain at the hospital after your exam until you receive instructions from the ER provider on duty. Take your other medications as previously directed. Call with questions or concerns. You may elevate your foot to the level of your heart if that is helpful. Do not use KYLE hose until you know the results of your ultrasound exam. Return to care if you have worsening symptoms. All discharge instructions reviewed with patient and/or family. Voiced understanding. Copy Copies To 1: BROOKS RUST MD, JOSHUA T MD Feb 18, 2021 21:42
[2021-02-18 22:04] VITALS: BP 148/75
== END 2021-02-18 22:04 | disposition home or self-care (01) ==
LOC: EDUNIT# 19:52 → ER 19:55
DX: M79.604 Pain in right leg (principal); R79.1 Abnormal coagulation profile; E11.9 Type 2 diabetes mellitus without complications; I11.0 Hypertensive heart disease with heart failure; I50.9 Heart failure, unspecified; E78.00 Pure hypercholesterolemia, unspecified; I25.10 Atherosclerotic heart disease of native coronary artery without angina pectoris; G89.29 Other chronic pain; M54.9 Dorsalgia, unspecified; M10.9 Gout, unspecified; Z95.1 Presence of aortocoronary bypass graft; Z86.718 Personal history of other venous thrombosis and embolism; Z86.16 Personal history of COVID-19; Z79.82 Long term (current) use of aspirin; Z79.84 Long term (current) use of oral hypoglycemic drugs; Z79.891 Long term (current) use of opiate analgesic; Z79.02 Long term (current) use of antithrombotics/antiplatelets; Z79.899 Other long term (current) drug therapy
CPT/HCPCS: 36415; 85027; 85379

== ENCOUNTER → 2021-02-19 | Outpatient (CLI) | payer MEDICARE, OTHER ==
--- NOTE | 2021-02-19 09:08 | Diagnostic Imaging Report ---
INDICATION: Right leg pain TECHNIQUE: Multiple real-time grayscale images were obtained over the right lower extremity in various projections, bilaterally. Additional duplex Doppler and color Doppler images were also obtained. CORRELATION STUDY: None FINDINGS: Color and grayscale sonographic images demonstrate no intraluminal defect within the visualized portion of the common femoral, superficial femoral and/or popliteal veins to suggest thrombus formation. These vessels demonstrate normal response to compression and augmentation. No soft tissue fluid collection. IMPRESSION: 1. Negative for deep venous thrombosis of the right leg. Dictated by: Dictated on workstation # [id number]
--- NOTE | 2021-02-19 09:10 | Diagnostic Imaging Report ---
TECHNIQUE: Multiple real-time grayscale images were obtained over the right lower extremity in various projections. Additional duplex Doppler and color Doppler images were also obtained. HISTORY: Right leg pain COMPARISON: 12/28/2020 FINDINGS: Right lower extremity: The major arteries of the right leg are patent to the ankle. There is detectable flow at the dorsalis pedis and posterior tibial arteries at the ankle. Triphasic waveform is present within the common femoral artery, becoming biphasic throughout the remainder of the right lower extremity arterial system. There is no focal velocity changes to suggest a hemodynamically significant stenosis. However, there is somewhat overall diminished flow below the tibial peroneal trifurcation. IMPRESSION: 1. Patent right lower extremity arterial system. There is no large vessel occlusion or hemodynamically significant stenosis in the right lower extremity. Findings do suggest small vessel peripheral arterial disease. Dictated by: Dictated on workstation # [id number]
== END ==
LOC: RAD 07:40
PROVIDERS: ATTEND Family Medicine
DX: M79.604 Pain in right leg (principal); R79.1 Abnormal coagulation profile; Z86.718 Personal history of other venous thrombosis and embolism
CPT/HCPCS: 93926

== ENCOUNTER → 2021-03-17 | Outpatient (CLI) | payer MEDICARE, OTHER | LOC: CARD 11:00 | PROVIDERS: ATTEND Internal Medicine Cardiovascular Disease | DX: I11.9 Hypertensive heart disease without heart failure (principal); I34.0 Nonrheumatic mitral (valve) insufficiency; I25.10 Atherosclerotic heart disease of native coronary artery without angina pectoris | CPT/HCPCS: 93306 ==

== ENCOUNTER 2021-06-04 10:08 | Outpatient (RCR) | payer MEDICARE, OTHER | END 2021-06-06 | disposition home or self-care (01) | LOC: CR 10:08 | PROVIDERS: ATTEND Thoracic Surgery (Cardiothoracic Vascular Surgery) | DX: Z95.1 Presence of aortocoronary bypass graft (principal) | CPT/HCPCS: 93798 ==

== ENCOUNTER 2021-07-04 10:46 | Outpatient (RCR) | payer MEDICARE, OTHER | END 2021-07-07 | disposition home or self-care (01) | LOC: CR 10:46 | PROVIDERS: ATTEND Thoracic Surgery (Cardiothoracic Vascular Surgery) | DX: Z95.1 Presence of aortocoronary bypass graft (principal) | CPT/HCPCS: 93798 ==

== ENCOUNTER 2021-08-04 09:48 | Outpatient (RCR) | payer MEDICARE, OTHER | END 2021-08-06 | disposition home or self-care (01) | LOC: CR3 09:48 | PROVIDERS: ATTEND Thoracic Surgery (Cardiothoracic Vascular Surgery) | DX: Z29.8 Encounter for other specified prophylactic measures (principal) ==

== ENCOUNTER → 2022-07-02 | Outpatient (CLI) | payer MEDICARE, OTHER | LOC: CARD 08:28 | PROVIDERS: ATTEND Internal Medicine Cardiovascular Disease | DX: I11.0 Hypertensive heart disease with heart failure (principal); I34.0 Nonrheumatic mitral (valve) insufficiency | CPT/HCPCS: 93306 ==